=== PATIENT | male | born 1950 | race Caucasian/White ===

== ENCOUNTER 2019-04-20 18:16 | Emergency (ER) | payer OTHER, SELFPAY ==
[2019-04-20 19:07] VITALS: BP 141/62; PULSE 74; RESP 20; TEMP 36.6; O2SAT 94; BMI 34.8
--- NOTE | 2019-04-20 19:26 | W.ED.ABDPA2 ---
HPI - Abdominal Pain General: Chief Complaint: Abdominal Pain Stated Complaint: lower abd pain Time Seen by Provider: 04/20/19 19:24 Source: patient Mode of arrival: wheelchair Limitations: no limitations History of Present Illness: MD elicited complaint: abdominal pain Onset (ago): day(s) (today) Associated Symptoms: Denies diarrhea and vomiting Review of Systems Resp: Denies: shortness of breath GI: Denies: vomiting or diarrhea Neuro: Denies: headache Physical Exam Const: COMMON NORMALS: no apparent distress and healthy appearing HENMT: COMMON NORMALS: normocephalic and external nose normal HEAD & SCALP: normocephalic NOSE: external nose normal and no nasal discharge (nasal dischage) Eye: COMMON NORMALS: PERRL PUPIL: Yes PERRL Neck/C-Spine: COMMON NORMALS: full ROM and no lymphadenopathy Chest: COMMONS NORMALS: inspection of chest normal Resp: COMMON NORMALS: normal respiratory effort and clear to auscultation bilaterally AUSCULTATION: clear to auscultation bilaterally Cardio: COMMON NORMALS: regular rate and regular rhythm RATE: regular rate RHYTHM: regular rhythm GI: COMMON NORMALS: soft to palpation PALPATION: Yes soft Extremity: COMMON NORMALS: normal to inspection, full ROM and normal capillary refill Psych: COMMON NORMALS: mental status grossly normal and cooperative Skin: COMMON NORMALS: no rashes or lesions noted GENERAL SKIN EXAM: no rashes or lesions noted Course Vital Signs: Vital signs: Vital Signs Temperature 97.9 F 04/20/19 19:07 Pulse Rate 74 04/20/19 19:07 Respiratory Rate 20 H 04/20/19 19:07 Blood Pressure 141/62 04/20/19 19:07 Pulse Oximetry 94 04/20/19 19:07 Discharge Plan Discharge Prescriptions: No Action Lantus U-100 Insulin 100 units SUBCUT BEDTIME RF: 0 Coding Level of Care Code ED Natural Resources Technician for Selin Murillo
--- NOTE | 2019-04-20 19:31 | ED_ITS ---
HPI - Abdominal Pain General: Chief Complaint: Abdominal Pain Stated Complaint: lower abd pain Time Seen by Provider: 04/20/19 19:24 History of Present Illness: HPI narrative: Patient is a 68-year-old male comes into the ED with severe right lower quadrant pain that started right after he ate dinner tonight. He says the pain is radiating up into his chest. Because of the past medical history of a CABG with multiple stents placed and type I diabetes. He rates the pain 9 out of 10. Patient's mother did pass away yesterday. He says he has some mild nausea but no vomiting. Denies any fevers, chills, constipation, diarrhea, blood in the stool, dysuria, hematuria, shortness of breath, upper respiratory symptoms. Location: Chest (radiating to chest) and RLQ Review of Systems General: Reports: 10 or more systems reviewed and unremarkable except in HPI and below Physical Exam Const: COMMON NORMALS: oriented x3 HENMT: COMMON NORMALS: normocephalic HEAD & SCALP: normocephalic MOUTH: oral and palatal mucosa normal THROAT: posterior oropharynx normal and uvula midline Neck/C-Spine: COMMON NORMALS: supple GENERAL: Yes normal visual inspection Resp: COMMON NORMALS: normal respiratory effort, no retractions, no use of accessory muscles and clear to auscultation bilaterally AUSCULTATION: clear to auscultation bilaterally Cardio: COMMON NORMALS: regular rate, regular rhythm, S1 normal heart sound, S2 normal heart sound, no gallops, no clicks, no murmurs and peripheral pulses 2+ throughout RATE: regular rate RHYTHM: regular rhythm HEART SOUNDS: S1 normal and S2 normal PERIPHERAL PULSES: pulses 2+ throughout GI: COMMON NORMALS: normal to inspection, nondistended, normoactive bowel sounds, soft to palpation and no masses INSPECTION: Yes central obesity AUSCULTATION: Yes normoactive bowel sounds PALPATION: Yes soft and Yes tender (Severe-light touch) Details: RLQ : COMMON NORMALS: Yes no CVA tenderness BLADDER/KIDNEY EXAM: Yes no CVA tenderness Back/Pelvis: COMMON NORMALS: no CVA tenderness Neuro: COMMON NORMALS: oriented x3 Course Vital Signs: Vital signs: Vital Signs Temperature 97.9 F 04/20/19 19:07 Pulse Rate 76 04/21/19 00:37 Respiratory Rate 18 04/21/19 00:37 Blood Pressure 146/46 04/21/19 00:37 Pulse Oximetry 93 04/21/19 00:37 MDM - Abdominal Pain MDM Narrative: Medical decision making narrative: Patient is a 68-year-old male comes into the ED with right lower quadrant abdominal pain radiates to chest pain. Physical exam was remarkable for localized right lower quadrant abdominal tenderness. CBC CMP and UA were unremarkable. Troponins were drawn an d were negative. EKG shows some old changes from previous heart issues and to our EKG was unchanged. this ruled out any cardiac cause of the chest pain. CT of the abdomen was performed as well and this showed nothing acute. Patient's pain finally improved while in the ED after getting some IV fluids, morphine then Dilaudid, then fentanyl. The patient that we are able to rule out some serious causes of pain but was unsure what the cause was. Told patient I will put him on some high strength ibuprofen and told him follow-up up with primary care doctor in 5-7 days for reevaluation. Patient understood and agreed with plan. Patient ambulated comfortably out of the emergency department. Lab Data: Attestation: I reviewed the patient's lab results. Labs: Lab Results 04/20/19 04/20/19 04/20/19 Range/Units 19:36 19:36 19:36 WBC 6.6 (4.0-10.0) 10^3/ uL RBC 4.70 (4.1-5.3) 10^6/u L Hgb 13.5 (11.7-16.6) g/dL Hct 42.2 (42.0-52.0) % MCV 89.8 (80-94) fL MCH 28.7 (28.0-34.0) pg MCHC 32.0 (30.0-36.0) g/dL RDW 12.7 (12.1-15.1) % Plt Count 168 (130-400) 10^3/c mm MPV 10.4 (7.4-10.4) fL Neut % (Auto) 67.2 % Lymph % (Auto) 19.2 % [place] % (Auto) 9.1 % Eos % (Auto) 3.5 % Baso % (Auto) 0.5 % Neut # (Auto) 4.5 (1.8-7.7) 10^3/u L Lymph # (Auto) 1.3 (0.8-4.8) 10^3/u L [place] # (Auto) 0.6 (0.2-0.9) 10^3/u L Eos # (Auto) 0.2 (0.0-0.8) 10^3/u L Baso # (Auto) 0.0 (0.0-0.1) 10^3/u L Nucleated RBC % (a uto) 0 % Nucleated RBCs # 0.0 /100WBC Sodium 139 (136-145) mmol/L Potassium 3.8 (3.5-5.1) mmol/L Chloride 101 (98-107) mmol/L Carbon Dioxide 27 (22-29) mmol/L Anion Gap 14.8 (5-19) BUN 14 (8-23) mg/dL Creatinine 1.3 H (0.7-1.2) mg/dL GFR Calculation 55.2 L (90-130) mL/min Glucose 156 H (74-106) mg/dL Calcium 9.5 (8.8-10.2) mg/Dl Total Bilirubin 0.3 (0.15-1.2) mg/dL AST 17 (0-40) U/L ALT 12 (0-41) U/L Alkaline Phosphata se 95 (40-130) IU/L Troponin T Baselin e 23 H (0-15) ng/mL Troponin T 120 Min [place] (0-15) ng/mL Delta Troponin T (0-10) ABS# Total Protein 7.3 (6.6-8.7) g/dL Albumin 4.1 (3.5-5.2) g/dL Globulin 3.2 (1.3-4.6) g/dL Lipase 23 (13-60) U/L Urine Color (Yellow) Urine Appearance (CLEAR) Urine pH (5-7) Ur Specific Gravit y (1.005-1.030) Urine Protein (Negative) Urine Glucose (UA) (Normal) Urine Ketones (Negative) Urine Occult Blood (Negative) Urine Nitrate (Negative) Urine Bilirubin (NEGATIVE) Urine Urobilinogen (Negative) mg/dL Ur Leukocyte Yesi ase (Negative) Urine RBC (0-2) /hpf Urine WBC (0-5) /hpf Ur Squamous Epith Cells (0-5) Urine Bacteria (NONE) 04/20/19 04/20/19 Range/Units 21:34 21:57 WBC (4.0-10.0) 10^3/ uL RBC (4.1-5.3) 10^6/u L Hgb (11.7-16.6) g/dL Hct (42.0-52.0) % MCV (80-94) fL MCH (28.0-34.0) pg MCHC (30.0-36.0) g/dL RDW (12.1-15.1) % Plt Count (130-400) 10^3/c mm MPV (7.4-10.4) fL Neut % (Auto) % Lymph % (Auto) % [place] % (Auto) % Eos % (Auto) % Baso % (Auto) % Neut # (Auto) (1.8-7.7) 10^3/u L Lymph # (Auto) (0.8-4.8) 10^3/u L [place] # (Auto) (0.2-0.9) 10^3/u L Eos # (Auto) (0.0-0.8) 10^3/u L Baso # (Auto) (0.0-0.1) 10^3/u L Nucleated RBC % (a uto) % Nucleated RBCs # /100WBC Sodium (136-145) mmol/L Potassium (3.5-5.1) mmol/L Chloride (98-107) mmol/L Carbon Dioxide (22-29) mmol/L Anion Gap (5-19) BUN (8-23) mg/dL Creatinine (0.7-1.2) mg/dL GFR Calculation (90-130) mL/min Glucose (74-106) mg/dL Calcium (8.8-10.2) mg/Dl Total Bilirubin (0.15-1.2) mg/dL AST (0-40) U/L ALT (0-41) U/L Alkaline Phosphata se (40-130) IU/L Troponin T Baselin e (0-15) ng/mL Troponin T 120 Min [place] 21.10 H (0-15) ng/mL Delta Troponin T -1.90 L (0-10) ABS# Total Protein (6.6-8.7) g/dL Albumin (3.5-5.2) g/dL Globulin (1.3-4.6) g/dL Lipase (13-60) U/L Urine Color Yellow (Yellow) Urine Appearance Clear (CLEAR) Urine pH 5 (5-7) Ur Specific Gravit y 1.010 (1.005-1.030) Urine Protein Neg (Negative) Urine Glucose (UA) 1+ (Normal) Urine Ketones Negative (Negative) Urine Occult Blood Neg (Negative) Urine Nitrate Negative (Negative) Urine Bilirubin Neg (NEGATIVE) Urine Urobilinogen 1 H (Negative) mg/dL Ur Leukocyte Yesi ase Negative (Negative) Urine RBC None (0-2) /hpf Urine WBC 0-4 H (0-5) /hpf Ur Squamous Epith Cells None (0-5) Urine Bacteria Trace (NONE) Discharge Plan Discharge Patient Disposition: Home, Self-Care Clinical Impression: Abdominal pain Qualifiers: Abdominal location: right lower quadrant Qualified Code(s): R10.31 - Right lower quadrant pain Condition: Stable Prescriptions: New ibuprofen 600 mg tablet 600 mg PO Q8H Qty: 30 RF: 0 No Action Lantus U-100 Insulin 100 units SUBCUT BEDTIME RF: 0 Discharge Orders: Discharge Order (Routine); Ordered 04/21/19 Ordered By: Junior Carrizales Referrals: Leo Herrera [Family Provider] - Discharge Diet: Advance as tolerated Discharge Activity: Resume usual activity Patient Instructions: Abdominal Pain (ED) Activity Restrictions/Additional Instructions: Follow-up with primary care doctor in 5-7 days for reevaluation. Take ibuprofen as prescribed. Apply warm moist heat or ice for relief. Discharge Date/Time: 04/21/19 00:39 Coding Level of Care Code ED Orthotist Prosthetist for Selin Murillo
--- NOTE | 2019-04-20 19:31 | XR_ITS ---
WS: [id number] PORTABLE CHEST HISTORY: chest pain COMPARISON: 05/22/2016 Prior CABG. Mild interstitial thickening throughout both lungs similar to prior examinations and probably related to history of smoking. No pneumonia. Normal vasculature. No pleural effusion or pneumothorax. Cardiac size: Mildly enlarged cardiac silhouette. Mediastinum/Aorta: Normal mediastinum. No osseous abnormality seen. XR/XR chest 1V portable [id number] IMPRESSION: Mild chronic emphysema. No acute cardiopulmonary disease.
--- NOTE | 2019-04-20 19:31 | ECG_ITS ---
Measurements Intervals [place] Rate: 76 P: 108 MO: 128 QRS: 54 QRSD: 114 T: 223 QT: 383 QTc: 431 SINUS RHYTHM WITH OCCASIONAL VENTRICULAR PREMATURE COMPLEXES MODERATE INTRAVENTRICULAR CONDUCTION DELAY [110+ ms QRS DURATION] ST DEVIATION AND MODERATE T-WAVE ABNORMALITY, CONSIDER LATERAL ISCHEMIA could be nonspecific ST DEVIATION AND MODERATE T-WAVE ABNORMALITY, could be repolarization abnormality mV T WAVE IN II/aVF] Compared to ECG 05/22/2016 18:29:18 Ventricular premature complex(es) now present Intraventricular conduction delay now present Electronically Signed On 04-21-2019 19:20:08 NOTCHED BLADE LOADER by Rl Shah M.D. [id number] f
[2019-04-20 19:42] LABS: Basophils % 0.5 %; Eosinophils # 0.2 10^3/uL (0.0-0.8); Eosinophils % 3.5 %; Hematocrit 42.2 % (42.0-52.0); Hemoglobin 13.5 g/dL (11.7-16.6); Lymphocytes # 1.3 10^3/uL (0.8-4.8); Lymphocytes % 19.2 %; Mean Corpuscular Hemoglobin 28.7 pg (28.0-34.0); Mean Corpuscular Volume 89.8 fL (80-94); Mean Platelet Volume 10.4 fL (7.4-10.4); Monocytes # 0.6 10^3/uL (0.2-0.9); Monocytes % 9.1 %; Neutrophils # 4.5 10^3/uL (1.8-7.7); Neutrophils % 67.2 %; Nucleated Red Blood Cells % 0 %; Platelet Count 168 10^3/cmm (130-400); Red Cell Distribution Width 12.7 % (12.1-15.1); White Blood Count 6.6 10^3/uL (4.0-10.0)
--- NOTE | 2019-04-20 19:42 | CTR_ITS ---
PROCEDURE INFORMATION: Exam: CT Abdomen And Pelvis With Contrast Exam date and time: 04/20/2019 8:04 PM Age: 68 years old Clinical indication: Abdominal pain; Localized; Right lower quadrant (rlq); Prior surgery; Surgery type: Gb, appy, bypass; Additional info: Abdominal pain (rlq) TECHNIQUE: Imaging protocol: Computed tomography of the abdomen and pelvis with intravenous contrast. Total DLP: 1970.89 mGy-cm Radiation optimization: All CT scans at this facility use at least one of these dose optimization techniques: automated exposure control; mA and/or kV adjustment per patient size (includes targeted exams where dose is matched to clinical indication); or iterative reconstruction. Contrast material: VISI 320; Contrast volume: 95 ml; Contrast route: IV; COMPARISON: CT abdomen pelvis wo con [id number] 05/07/2013 6:55 PM FINDINGS: Lungs: There is subpleural atelectasis of the dependent portions of the lungs. Liver: Unremarkable.No mass. Gallbladder and bile ducts: There has been a cholecystectomy. There is no common bile duct dilation. Pancreas: Normal. No ductal dilation. Spleen: Normal. No splenomegaly. Adrenals: Normal. No mass. Kidneys and ureters: There is no evidence of hydronephrosis. There is a 3.3 cm fluid density cyst upper pole left kidney. Stomach and bowel: Mild diverticulosis is present in the distal colon. There is abundant colonic stool. No ileus or obstruction. No bowel thickening. No inflammatory changes. Appendix: A normal appendix is identified. Intraperitoneal space: Unremarkable. No free air. No significant fluid collection. Vasculature: The aorta demonstrates mild atherosclerotic calcification. Lymph nodes: Unremarkable.No enlarged lymph nodes. Bladder: Unremarkable as visualized. Reproductive: Unremarkable as visualized. Bones/joints: The osteopenia and moderate degenerative changes in the spine are noted. No acute fracture. Old left 10th rib fracture is noted. Soft tissues: There are small fat filled inguinal hernias. CT/CT abdomen pelvis w con* [id number] IMPRESSION: 1. No acute abnormality or inflammatory changes. Incidental findings are noted as above. 2. Unremarkable appendix. No inflammatory changes or fluid collection in the right lower quadrant. Radiation Dose CTDIVOL = (mGy): DLP = 1970.89 (mGy-cm)
[2019-04-20 19:56] LABS: Alanine Aminotransferase 12 U/L (0-41); Albumin Level 4.1 g/dL (3.5-5.2); Alkaline Phosphatase 95 IU/L (40-130); Anion Gap 14.8 (5-19); Aspartate Amino Transferase 17 U/L (0-40); Blood Urea Nitrogen 14 mg/dL (8-23); Calcium 9.5 mg/Dl (8.8-10.2); Carbon Dioxide 27 mmol/L (22-29); Chloride 101 mmol/L (98-107); Globulin 3.2 g/dL (1.3-4.6); Glomerular Filtration Rate 55.2 mL/min (90-130); Glucose 156 mg/dL (74-106); Lipase 23 U/L (13-60); Potassium 3.8 mmol/L (3.5-5.1); Sodium 139 mmol/L (136-145); Total Bilirubin 0.3 mg/dL (0.15-1.2); Total Protein 7.3 g/dL (6.6-8.7)
[2019-04-20 19:58] LABS: Troponin(5th) Baseline 23 ng/mL (0-15)
[2019-04-20] MEDS: iodixanol 320 mg/mL 100mL Btl 95 ML IV (20:12)
--- NOTE | 2019-04-20 20:15 | PC.NURSE ---
pt to CT per stretcher at this time. NAD noted
[2019-04-20 20:45] VITALS: RESP 16; O2SAT 91
[2019-04-20] MEDS: morphine 4 mg/mL SDV 1 mL IM (20:45)
[2019-04-20] MEDS: ondansetron 2 mg/ML SDV 2 mL 4 MG IVP (20:46)
[2019-04-20] MEDS: sodium chloride 0.9% 500 ML IV (20:46)
--- NOTE | 2019-04-20 21:31 | ECG_ITS ---
Measurements Intervals [place] Rate: 76 P: 112 CT: 139 QRS: 54 QRSD: 108 T: 208 QT: 376 QTc: [address] DEVIATION AND MODERATE T-WAVE ABNORMALITY, CONSIDER LATERAL ISCHEMIA [-0.1+ mV T WAVE IN I/aVL/V5/V6] ST DEVIATION AND MODERATE T-WAVE ABNORMALITY, CONSIDER INFERIOR ISCHEMIA [-0.1+ mV T WAVE IN II/aVF] Compared to ECG 05/22/2016 18:29:18 Possible ischemia now present Myocardial infarct finding no longer present T-wave abnormality still present Electronically Signed On 04-21-2019 19:22:39 TOUR ACTOR by Rl Shah M.D. [id number]
[2019-04-20 21:35] VITALS: RESP 16; O2SAT 90
[2019-04-20] MEDS: HYDROmorphone 1 mg/mL INJ 1 mL IVP (21:35)
[2019-04-20 21:41] VITALS: BP 198/61; PULSE 82; RESP 26; O2SAT 92
[2019-04-20 22:36] LABS: Bilirubin Urine Neg (NEGATIVE); Blood Urine Neg (Negative); Glucose Urine UA 1+ (Normal); Ketones Urine Negative (Negative); Leukocyte Esterase Urine Negative (Negative); Nitrate Urine Negative (Negative); Protein Urine Neg (Negative); Urine Appearance Clear (CLEAR); Urine Color Yellow (Yellow); Urobilinogen Urine 1 mg/dL (Negative); pH Urine 5 (5-7)
[2019-04-20] MEDS: aspirin 325 mg Tablet PO (22:45)
[2019-04-20 22:54] LABS: Add Urine Culture? No; Bacteria Urine TRACE; WBC Urine 0-4 /hpf (0-5)
[2019-04-20] MEDS: fentaNYL 50 mcg/mL INJ 2mL 25 MCG IVP (23:10)
[2019-04-21 00:37] VITALS: BP 146/46; PULSE 76; RESP 18; O2SAT 93
== END 2019-04-21 00:39 | disposition home or self-care (01) ==
PROVIDERS: Emergency Medicine; Emergency Provider Physician Assistant; Family Provider Internal Medicine
DX: R10.31 Right lower quadrant pain (principal)
CPT/HCPCS: 36415; 71045; 74177; 80053; 81001; 83690; 84484; 85025; 93005; 96360; 96372; 96374; 99283; J1170; J2270; J2405; J3010; J7040; Q9967

== ENCOUNTER → 2019-09-04 13:44 | Outpatient (BNVA) | payer OTHER, SELFPAY | PROVIDERS: Family Provider Internal Medicine; Visit Provider Urology | DX: N40.1 Benign prostatic hyperplasia with lower urinary tract symptoms (principal); N48.1 Balanitis; N30.00 Acute cystitis without hematuria; N47.1 Phimosis; R82.71 Bacteriuria | CPT/HCPCS: 80053; 81001; 87077; 87086; 87186 ==

== ENCOUNTER → 2019-09-08 09:58 | Outpatient (BNVA) | payer OTHER, SELFPAY | PROVIDERS: Family Provider Internal Medicine; Visit Provider Urology | DX: N40.1 Benign prostatic hyperplasia with lower urinary tract symptoms (principal); N48.1 Balanitis; N30.00 Acute cystitis without hematuria; N47.1 Phimosis | CPT/HCPCS: 88304 ==

== ENCOUNTER → 2019-10-23 10:06 | Outpatient (BNVA) | payer OTHER, SELFPAY | PROVIDERS: Family Provider Internal Medicine; Visit Provider Urology | DX: N30.00 Acute cystitis without hematuria (principal); N40.1 Benign prostatic hyperplasia with lower urinary tract symptoms; N47.1 Phimosis; F17.210 Nicotine dependence, cigarettes, uncomplicated | CPT/HCPCS: 81001 ==

== ENCOUNTER → 2019-12-18 08:41 | Outpatient (BNVA) | payer OTHER, SELFPAY | PROVIDERS: Family Provider Internal Medicine; PCP Family Medicine; Visit Provider Internal Medicine | DX: Z11.59 Encounter for screening for other viral diseases (principal) | CPT/HCPCS: 87635 ==

== ENCOUNTER → 2019-12-28 08:49 | Outpatient (BNVA) | payer OTHER, SELFPAY | PROVIDERS: Family Provider Internal Medicine; PCP Family Medicine; Visit Provider Internal Medicine | DX: Z11.59 Encounter for screening for other viral diseases (principal); J44.9 Chronic obstructive pulmonary disease, unspecified | CPT/HCPCS: 87635 ==

== ENCOUNTER 2019-12-30 12:55 | Outpatient (CLI) | payer OTHER, SELFPAY ==
--- NOTE | 2019-12-30 13:25 | PFTS_ITS ---
Date of Study:12/30/19 Date of Dictation: MECHANICS: Forced vital capacity (FVC) is reduced. Forced expiratory volume in one second (FEV1) is reduced. FEV1/FVC is normal. FLOW VOLUME LOOP: Narrow. LUNG VOLUMES: Total lung capacity (TLC) is mildly reduced. Residual volume (RV) is normal. DIFFUSING CAPACITY FOR CARBON MONOXIDE: Moderately reduced. INTERPRETATION: The pulmonary function test is consistent with combined obstructive and restrictive ventilatory defect. The spirometry is consistent with moderately severe restriction. The relatively preserved total lung capacity and residual volume are likely secondary to concomitant obstructive defect. There is significant postbronchodilator response. Gas exchange (DLCO) is moderately reduced. MTDD
[2019-12-30 15:10] VITALS: O2SAT 93; O2SAT 98
== END 2019-12-30 12:56 | disposition home or self-care (01) ==
LOC: RT 13:01
PROVIDERS: PCP Family Medicine; Visit Provider Internal Medicine Pulmonary Disease
DX: J44.9 Chronic obstructive pulmonary disease, unspecified (principal)
CPT/HCPCS: 94060; 94726; 94729; J7611

== ENCOUNTER 2020-04-25 12:34 | Outpatient (CLI) | payer OTHER, MEDICARE, SELFPAY ==
--- NOTE | 2020-04-25 12:42 | XRR_ITS ---
PROCEDURE INFORMATION: Exam: XR Chest, 2 Views Exam date and time: 04/25/2020 12:54 PM Age: 69 years old Clinical indication: Dyspnea and shortness of breath; Prior surgery; Surgery type: Heart; Additional info: Exertional shortness of breath TECHNIQUE: Imaging protocol: XR of the chest Views: 2 views. COMPARISON: CT chest w con* [id number] 08/12/2019 12:07 PM FINDINGS: Lungs: Unremarkable. No consolidation. Pleural space: Unremarkable. No pleural effusion. No pneumothorax. Heart/Mediastinum: The heart is not enlarged. The patient has undergone coronary bypass surgery. Bones/joints: Degenerative changes are present in the spine with scattered small osteophytes.. XR/XR chest 2V* [id number] IMPRESSION: No acute abnormalities are seen in the chest.
== END 2020-04-25 12:35 | disposition home or self-care (01) ==
PROVIDERS: PCP Family Medicine; Visit Provider Internal Medicine Pulmonary Disease
DX: R06.02 Shortness of breath (principal)
CPT/HCPCS: 71046

== ENCOUNTER 2020-12-06 15:59 | Emergency (ER) | payer OTHER, MEDICARE, SELFPAY ==
[2020-12-06 16:32] VITALS: BP 139/78; PULSE 79; RESP 23; TEMP 36.7; O2SAT 93
--- NOTE | 2020-12-06 17:08 | ED_ITS ---
HPI - Abdominal Pain General: Chief Complaint: Abdominal Pain Stated Complaint: RECENTLY DX W/RECURRING CANCER:RECENT DX BLOCKAGE Time Seen by Provider: 12/06/20 17:08 History of Present Illness: HPI narrative: Mr. Rodrigues is a 70-year-old gentleman with history of CAD, DM, and COPD and reported recent diagnosis of gastric cancer and possible colitis in the hospital in [place] who presents to the emergency department due to worsening abdominal pain. Reports abdominal pain for a number of weeks and his last bowel movement was approximately 22 days ago. He presented to this hospital with [place] where he was found to have a gastric mass. He has not had follow-up yet with oncology. He was started on antibiotics which he is still taking though he is unsure which ones. He now has significantly worsened abdominal pain. Intensity is severe. Symptoms are worse with palpation and movement but do not go with rest. He is still passing gas but has not had bowel movement as previously noted. He denies similar episodes in the past. He does have a history of abdominal surgeries including cholecystectomy and appendectomy. Review of Systems General: Reports: 10 or more systems reviewed and unremarkable except in HPI and below Narrative: CONSTITUTIONAL: denies fever, positive for generalized fatigue EYES - denies pain, denies loss of vision NOSE - denies congestion or rhinorrhea. THROAT - denies sore throat or difficulty swallowing. CARDIOVASCULAR - denies chest pain and palpitations RESPIRATORY - denies shortness of breath and cough GASTROINTESTINAL - see hpi GENITOURINARY - denies dysuria or urinary frequency MUSCULOSKELETAL- denies deformity or pain SKIN - denies rashes or new changed skin lesions NEUROLOGIC - denies focal weakness or sensory changes HEMATOLOGIC/LYMPHATIC - denies easy bruising or lymphadenopathy. [facility] ED PFSH: Medical History CAD (coronary artery disease) Chronic headache Complex partial epilepsy with generalization COPD (chronic obstructive pulmonary disease) Diabetes Hypertension Myocardial infarct Surgical History H/O circumcision History of appendectomy History of coronary artery bypass graft History of laparotomy Family History Other CAD (coronary artery disease) Hypertension Mesothelioma Social History Smoking and tobacco status: current every day smoker cigarettes Packs smoked per day: 0.5 Years cigarettes smoked: 50 [ Other cigarette details: was 2ppd ] Quit status (tobacco): considering quitting Second hand smoke exposure: Yes Smoking risk assessment/counseling performed?: Yes Alcohol intake: never Lives independently: Yes Household members: spouse Marital status: service: Yes Current occupational status: retired and disabled Pets and animals: No History of recent travel: No Current gender identity: Male Physical Exam Narrative: EXAM NARRATIVE: GENERAL/CONSTITUTIONAL - well-appearing. Discomfort due to pain. Eyes - PERRL, no conjunctival injection ENMT - Atraumatic external nose and ears. Moist mucous membranes NECK - supple. trachea midline CARDIOVASCULAR - regular rate and rhythm. Peripheral pulses 2+ and equal RESPIRATORY -clear to auscultation bilaterally. No retractions or accessory muscle use. ABDOMEN/GI -tenderness to even light palpation without hoang distention. There is mild tenderness percussion. MSK - Extremities without obvious deformity or tenderness to palpation SKIN - Warm, Dry NEURO - alert and appropriately oriented. strength and sensation intact. Moves all extremities equally. PSYCH - Appropriate mood and affect Course ED course: - Patient was seen and evaluated by me at bedside - Patient placed on cardiac monitors, IV access obtained - Initial evaluation notable for uncomfortable appearance, abdominal exam concerning. - Labs and imaging obtained and reviewed - Fluids, analgesia given - Labs notable for no significant abnormality to explain patient's symptoms - Imaging notable for pyelitis of unclear etiology. - Upon serial reexamination after treatment the patient was improved -There is a discrepancy between patient's laboratory findings and imaging findings and clinical exam. Additionally it is already consistent with patient's reported history. -Given severity of patient's abdominal pain even though it has improved observation is warranted. -Hospitalist service contacted and came down to assess the patient. Similarly, she recommended admission for observation however as there are no available MedSurg beds the patient will need to remain in the ED room. The patient was dissatisfied with this plan and expressed a desire to be discharged. Given laboratory and imaging findings plan was to discharge the patient however prior to receiving complete discharge instructions and prescriptions the patient left AGAINST MEDICAL ADVICE as he had not received aforementioned instructions. Vital Signs: Vital signs: Vital Signs Temperature 98.0 F 12/06/20 16:32 Pulse Rate 87 12/06/20 20:48 Respiratory Rate 20 H 12/06/20 20:48 Blood Pressure 134/62 12/06/20 20:48 Pulse Oximetry 94 12/06/20 20:48 MDM - Abdominal Pain Medical Records: Attestation: I reviewed the patient's medical records. Lab Data: Attestation: I reviewed the patient's lab results. Labs: Lab Results 12/06/20 12/06/20 12/06/20 Range/Units 17:30 17:30 17:30 WBC 10.1 H (4.0-10.0) 10^3/ uL RBC 4.49 (4.1-5.3) 10^6/u L Hgb 13.1 (11.7-16.6) g/dL Hct 41.9 L (42.0-52.0) % MCV 93.3 (80-94) fl MCH 29.2 (28.0-34.0) pg MCHC 31.3 (30.0-36.0) g/dL RDW 12.9 (12.1-15.1) % Plt Count 238 (130-400) 10^3/c mm MPV 10.9 H (7.4-10.4) fL Neut % (Auto) 75.4 % Lymph % (Auto) 10.6 % Greene % (Auto) 10.0 % Eos % (Auto) 3.1 % Baso % (Auto) 0.6 % Neut # (Auto) 7.61 (1.8-7.7) 10^3/u L Lymph # (Auto) 1.1 (0.8-4.8) 10^3/u L Greene # (Auto) 1.0 H (0.2-0.9) 10^3/u L Eos # (Auto) 0.3 (0.0-0.8) 10^3/u L Baso # (Auto) 0.1 (0.0-0.1) 10^3/u L Nucleated RBC % (a uto) 0 % Nucleated RBCs # 0.0 /100WBC Sodium 141 (136-145) mmol/L Potassium 4.1 (3.5-5.1) mmol/L Chloride 106 (98-107) mmol/L Carbon Dioxide 25 (22-29) mmol/L Anion Gap 14.1 (5-19) BUN 19 (8-23) mg/dL Creatinine 1.6 H (0.7-1.2) mg/dL GFR Calculation 43.2 L (90-130) mL/min Glucose 61 L (65-115) mg/dL POC Glucose (70-110) mg/dL Calculated Osmolal ity 292 (285-295) mOsm/k g Lactate 0.7 (0.5-2.2) mmol/L Calcium 8.8 (8.5-10.5) mg/dL Total Bilirubin 0.3 (0.15-1.2) mg/dL AST 30 (0-40) U/L ALT 21 (0-41) U/L Alkaline Phosphata se 100 (40-130) IU/L Total Protein 7.6 (6.6-8.7) g/dL Albumin 3.6 (3.5-5.2) g/dL Globulin 4.0 (1.3-4.6) g/dL Lipase 20 (13-60) U/L Urine Color (Yellow) Urine Appearance (CLEAR) Urine pH (5-7) Ur Specific Gravit y (1.005-1.030) Urine Protein (Negative) Urine Glucose (UA) (Normal) Urine Ketones (Negative) Urine Blood (Negative) Urine Nitrate (Negative) Urine Bilirubin (Negative) Urine Urobilinogen (Negative) mg/dL Ur Leukocyte Yesi ase (Negative) 12/06/20 12/06/20 12/06/20 Range/Units 17:41 17:57 19:38 WBC (4.0-10.0) 10^3/ uL RBC (4.1-5.3) 10^6/u L Hgb (11.7-16.6) g/dL Hct (42.0-52.0) % MCV (80-94) fl MCH (28.0-34.0) pg MCHC (30.0-36.0) g/dL RDW (12.1-15.1) % Plt Count (130-400) 10^3/c mm MPV (7.4-10.4) fL Neut % (Auto) % Lymph % (Auto) % Greene % (Auto) % Eos % (Auto) % Baso % (Auto) % Neut # (Auto) (1.8-7.7) 10^3/u L Lymph # (Auto) (0.8-4.8) 10^3/u L Greene # (Auto) (0.2-0.9) 10^3/u L Eos # (Auto) (0.0-0.8) 10^3/u L Baso # (Auto) (0.0-0.1) 10^3/u L Nucleated RBC % (a uto) % Nucleated RBCs # /100WBC Sodium (136-145) mmol/L Potassium (3.5-5.1) mmol/L Chloride (98-107) mmol/L Carbon Dioxide (22-29) mmol/L Anion Gap (5-19) BUN (8-23) mg/dL Creatinine (0.7-1.2) mg/dL GFR Calculation (90-130) mL/min Glucose (65-115) mg/dL POC Glucose 61 L 72 (70-110) mg/dL Calculated Osmolal ity (285-295) mOsm/k g Lactate (0.5-2.2) mmol/L Calcium (8.5-10.5) mg/dL Total Bilirubin (0.15-1.2) mg/dL AST (0-40) U/L ALT (0-41) U/L Alkaline Phosphata se (40-130) IU/L Total Protein (6.6-8.7) g/dL Albumin (3.5-5.2) g/dL Globulin (1.3-4.6) g/dL Lipase (13-60) U/L Urine Color Straw (Yellow) Urine Appearance Clear (CLEAR) Urine pH 5 (5-7) Ur Specific Gravit y 1.005 (1.005-1.030) Urine Protein Neg (Negative) Urine Glucose (UA) Norm (Normal) Urine Ketones Negative (Negative) Urine Blood Neg (Negative) Urine Nitrate Negative (Negative) Urine Bilirubin Neg (Negative) Urine Urobilinogen Norm (Negative) mg/dL Ur Leukocyte Yesi ase Negative (Negative) Discharge Plan Discharge Patient Disposition: Left Against Medical Advice Clinical Impression: Abdominal pain, Pyelitis Condition: Stable Prescriptions: New ciprofloxacin HCl 500 mg tablet 500 mg PO BID Qty: 14 RF: 0 No Action bupivacaine (PF) 0.5 % (5 mg/mL) solution 5 mg INTRAVESIC ONCE Qty: 1 RF: 0 lidocaine (PF) 10 mg/mL (1 %) solution 10 mg SUBCUT ONCE Qty: 1 RF: 0 aspirin 325 mg tablet 325 mg PO DAILY RF: 0 Hold Instructions: on hold for procedure clopidogrel 75 mg tablet 75 mg PO DAILY RF: 0 Hold Instructions: on hold for procedure ibuprofen 600 mg tablet 600 mg PO Q8H PRN (Reason: Pain) RF: 0 Hold Instructions: on hold for procedure metoprolol tartrate 50 mg tablet 50 mg PO DAILY RF: 0 Hold Instructions: on hold for procedure Novolin N NPH U-100 Insulin 100 unit/mL suspension 35 unit SUBCUT TID RF: 0 atorvastatin [Lipitor] 80 mg tablet 80 mg PO DAILY RF: 0 melatonin 3 mg capsule 3 mg PO DAILY RF: 0 topiramate [Topamax] 50 mg tablet 50 mg PO BID Qty: 60 RF: 6 divalproex [Depakote ER] 500 mg tablet extended release 24 hr 1,000 mg PO DAILY Qty: 60 RF: 6 Stiolto Respimat 2.5-2.5 mcg/actuation mist 2 puff inhalation DAILY Qty: 4 RF: 3 Asmanex HFA 200 mcg/actuation HFA aerosol inhaler 1 puff inhalation DAILY Qty: 13 RF: 3 Lantus U-100 Insulin 100 unit/mL solution 100 unit SUBCUT BEDTIME RF: 0 sulfamethoxazole-trimethoprim 800-160 mg tablet 1 tab PO BID RF: 0 gabapentin 300 mg capsule 300 mg PO TID RF: 0 tamsulosin 0.4 mg capsule 0.4 mg PO DAILY RF: 0 Discharge Orders: Discharge ED (Routine); Ordered 12/06/20 Ordered By: Iker Lam Referrals: Portia Lawrence MD [Primary Care Provider] - Discharge Diet: Usual diet Discharge Activity: Resume usual activity Patient Instructions: Abdominal Pain (ED) Coding Level of Care Code ED Program Manager for Selin Murillo
--- NOTE | 2020-12-06 17:20 | CTR_ITS ---
PROCEDURE INFORMATION: Exam: CT Abdomen And Pelvis With Contrast Exam date and time: 12/06/2020 5:20 PM Age: 70 years old Clinical indication: Abdominal pain; Generalized; Prior surgery; Surgery type: Open heart, appy; Additional info: Abd pain, distension, ? HX cancer TECHNIQUE: Imaging protocol: Computed tomography of the abdomen and pelvis with contrast. Total images: 258 Radiation optimization: All CT scans at this facility use at least one of these dose optimization techniques: automated exposure control; mA and/or kV adjustment per patient size (includes targeted exams where dose is matched to clinical indication); or iterative reconstruction. Contrast material: VISI 320; Contrast volume: 95 ml; Contrast route: INTRAVENOUS (IV); COMPARISON: CT abdomen pelvis w con* [id number] 04/20/2019 8:21 PM RADIATION DOSE METRICS: Total DLP (mGy-cm): 1875.21 FINDINGS: Lungs: Limited assessment of the lung bases fails to reveal evidence for active cardiopulmonary process. Liver: No visible hepatic mass or cystic structure. Gallbladder and bile ducts: Status post cholecystectomy. Pancreas: Pancreas is unremarkable. No visible pancreatic ductal ectasia. Spleen: Spleen unremarkable. Adrenal glands: Adrenal glands unremarkable. Kidneys and ureters: Findings raising suspicion for low-grade bilateral pyelonephritis and pyelitis. No visible lobar nephronia/abscess. No visible hydronephrosis or perinephric fluid. No visible nephrolithiasis or ureterolithiasis. Stable simple cortical cyst superior pole right kidney. No follow-up recommended. Stomach and bowel: Assessment of the hollow viscus fails to reveal evidence of active or acute pathology. Nonobstructed bowel pattern. No visible acute diverticulitis. No visible adynamic or reactive ileus. Appendix: The appendix is visualized and appears noninflamed. Intraperitoneal space: No visible pneumoperitoneum or intraperitoneal ascites. Vasculature: Portal vein patent. The abdominal aorta is nonaneurysmal. Moderate arterial sclerotic disease. Lymph nodes: Unremarkable. No enlarged lymph nodes. Urinary bladder: Seg[place] catheter within a decompressed urinary bladder. Diffuse bladder wall thickening. Reproductive: Unremarkable as visualized for age. Bones/joints: No visible active or acute osseous pathology. Old posterior left 10th rib fracture. Soft tissues: Heavy body habitus. Small left inguinal hernia containing fat only. Left lower quadrant soft tissue emphysematous pockets most likely from a small subcutaneous injection site. CT/CT abdomen pelvis w con* [id number] IMPRESSION: 1. Findings raising suspicion for low-grade bilateral pyelonephritis and pyelitis. 2. Segovia catheter within a decompressed urinary bladder. Diffuse bladder wall thickening. Radiation Dose CTDIVOL = (mGy): DLP = 1875.21 (mGy-cm)
--- NOTE | 2020-12-06 17:27 | XRR_ITS ---
PROCEDURE INFORMATION: Exam: XR Chest Exam date and time: 12/06/2020 5:27 PM Age: 70 years old Clinical indication: Tachypnea; Prior surgery TECHNIQUE: Imaging protocol: XR of the chest. Views: 1 view. Total images: 1 COMPARISON: CR XR chest 2V* [id number] 04/25/2020 12:46 PM FINDINGS: Lungs: No visible active interstitial or alveolar airspace disease. Pleural spaces: Unremarkable. No pleural effusion. No pneumothorax. Heart/Mediastinum: Cardiomegaly. Status post sternotomy chest. Bones/joints: Unremarkable. XR/XR chest 1V portable [id number] IMPRESSION: Nonacute.
[2020-12-06 17:35] VITALS: BP 154/67; PULSE 80; RESP 15; O2SAT 96
[2020-12-06 17:44] LABS: Glucose Point of Care 61 mg/dL (70-110)
[2020-12-06 17:47] LABS: Basophils # 0.1 10^3/uL (0.0-0.1); Basophils % 0.6 %; Eosinophils # 0.3 10^3/uL (0.0-0.8); Eosinophils % 3.1 %; Hematocrit 41.9 % (42.0-52.0); Hemoglobin 13.1 g/dL (11.7-16.6); Lymphocytes # 1.1 10^3/uL (0.8-4.8); Lymphocytes % 10.6 %; Mean Corpuscular HGB Conc 31.3 g/dL (30.0-36.0); Mean Corpuscular Hemoglobin 29.2 pg (28.0-34.0); Mean Corpuscular Volume 93.3 fl (80-94); Mean Platelet Volume 10.9 fL (7.4-10.4); Neutrophils # 7.61 10^3/uL (1.8-7.7); Neutrophils % 75.4 %; Nucleated Red Blood Cells % 0 %; Platelet Count 238 10^3/cmm (130-400); Red Blood Count 4.49 10^6/uL (4.1-5.3); Red Cell Distribution Width 12.9 % (12.1-15.1); White Blood Count 10.1 10^3/uL (4.0-10.0)
[2020-12-06 18:03] VITALS: RESP 16; O2SAT 97
[2020-12-06] MEDS: HYDROmorphone 1 mg/mL INJ 1 mL 0.5 MG IVP ×3 (18:03→20:43)
[2020-12-06] MEDS: ondansetron 2 mg/ML SDV 2 mL 4 MG IVP (18:03)
[2020-12-06] MEDS: sodium chloride 0.9% 1,000 ML 999 ML IV (18:04)
[2020-12-06 18:07] LABS: Add Urine Microscopic? NO; Charge for UA Resulting for Rev
[2020-12-06 18:11] LABS: Lactate (Lactic Acid level) 0.7 mmol/L (0.5-2.2)
[2020-12-06] MEDS: dextrose 50% syringe 50 mL 25 ML IVP (18:11)
[2020-12-06 18:12] LABS: Urine Appearance Clear (CLEAR); Urine Color Straw (Yellow)
[2020-12-06 18:12] LABS: Alanine Aminotransferase 21 U/L (0-41); Albumin Level 3.6 g/dL (3.5-5.2); Alkaline Phosphatase 100 IU/L (40-130); Anion Gap 14.1 (5-19); Aspartate Amino Transferase 30 U/L (0-40); Blood Urea Nitrogen 19 mg/dL (8-23); Calcium 8.8 mg/dL (8.5-10.5); Carbon Dioxide 25 mmol/L (22-29); Chloride 106 mmol/L (98-107); Glomerular Filtration Rate 43.2 mL/min (90-130); Glucose 61 mg/dL (65-115); Lipase 20 U/L (13-60); Osmolality Calculated 292 mOsm/kg (285-295); Potassium 4.1 mmol/L (3.5-5.1); Sodium 141 mmol/L (136-145); Total Bilirubin 0.3 mg/dL (0.15-1.2); Total Protein 7.6 g/dL (6.6-8.7)
[2020-12-06 18:13] LABS: Bilirubin Urine Neg (Negative); Blood Urine Neg (Negative); Glucose Urine UA Norm (Normal); Ketones Urine Negative (Negative); Leukocyte Esterase Urine Negative (Negative); Nitrate Urine Negative (Negative); Protein Urine Neg (Negative); Specific Gravity, Urine 1.005 (1.005-1.030); Urobilinogen Urine Norm (Negative); pH Urine 5 (5-7)
--- NOTE | 2020-12-06 18:15 | PC.NURSE ---
pt desat to 85% with a good pleth; pt report he has sleep apnea and wears a cpap at night; applied 2lnc and sat improved to 92%; notified Dr. Lam.
[2020-12-06] MEDS: iodixanol 320 mg/mL 100mL Btl IV (19:36)
[2020-12-06 19:40] LABS: Glucose Point of Care 72 mg/dL (70-110)
[2020-12-06 19:54] VITALS: BP 154/71; PULSE 77; RESP 19; O2SAT 92
[2020-12-06] MEDS: piperacillin-tazobactam 4.5 GM in sodium chloride 0.9% (plus) 50 ML IV (20:44)
[2020-12-06 20:48] VITALS: BP 134/62; PULSE 87; RESP 20; O2SAT 94
--- NOTE | 2020-12-07 00:32 | PM.MISC ---
Miscellaneous Note Note: I was asked to evaluate Mr. Andersen for admission by Dr. Lam. Patient presented to the ER with history of increasing generalized weakness over the past week along with somnolence as noted by his . They stated that patient had recently traveled to [place] on a vacation, while over there he developed abdominal pain for which he visited a local hospital. does not recall name of the facility. There he was diagnosed with a stomach mass and possible diverticulitis. 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 No records are available at this time for review. On presentation to the ER he had abdominal tenderness on exam, CT scan of the abdomen was performed. Showed signs of possible bilateral pyelitis, UA negative. No significant leukocytosis. However patient noted to be somnolent, speaking in few short sentences, this may possibly be secondary to receiving opiates for pain management. stated he has not had a bowel movement in several days and also currently not passing flatus. CT abdomen did not show any signs of acute obstruction. Noted to be also on oxygen at 3 L/min which per is a new requirement. Patient was recommended admission for observation and further work-up, however there are no current beds available and patient would be an ER hold. stated she does not wish to remain in the ER and if there are no beds at this time she would prefer to return home and bring the patient back if needed. She also declined transfer to other facilities. I recommended oral ciprofloxacin and close follow-up with urology and general surgery as outpatient if unwilling to stay tonight.
== END 2020-12-06 23:59 | disposition left against medical advice (07) ==
PROVIDERS: Emergency Provider Emergency Medicine; PCP Family Medicine
DX: N12 Tubulo-interstitial nephritis, not specified as acute or chronic (principal); C16.9 Malignant neoplasm of stomach, unspecified; E11.9 Type 2 diabetes mellitus without complications; I10 Essential (primary) hypertension; J44.9 Chronic obstructive pulmonary disease, unspecified; I25.10 Atherosclerotic heart disease of native coronary artery without angina pectoris; F17.210 Nicotine dependence, cigarettes, uncomplicated; Z79.4 Long term (current) use of insulin; Z79.82 Long term (current) use of aspirin; Z95.1 Presence of aortocoronary bypass graft; Z53.29 Procedure and treatment not carried out because of patient's decision for other reasons
CPT/HCPCS: 36416; 71045; 74177; 80053; 81003; 82962; 83605; 83690; 85025; 87040; 96365; 96375; 96376; 99284; J1170; J2405; J2543; J7030; Q9967

== ENCOUNTER → 2021-02-21 09:50 | Outpatient (BNVA) | payer OTHER, MEDICARE, SELFPAY | PROVIDERS: PCP Family Medicine; Visit Provider Urology | DX: R33.9 Retention of urine, unspecified (principal); N39.0 Urinary tract infection, site not specified | CPT/HCPCS: 81003; 87077; 87086; 87184 ==

== ENCOUNTER → 2022-04-05 10:42 | Outpatient (BNVA) | payer OTHER, SELFPAY | PROVIDERS: PCP Family Medicine; Visit Provider Internal Medicine Cardiovascular Disease | DX: R06.02 Shortness of breath (principal); I25.10 Atherosclerotic heart disease of native coronary artery without angina pectoris; I25.2 Old myocardial infarction; Z95.1 Presence of aortocoronary bypass graft; I10 Essential (primary) hypertension; G47.33 Obstructive sleep apnea (adult) (pediatric); Z99.89 Dependence on other enabling machines and devices; I65.23 Occlusion and stenosis of bilateral carotid arteries; J44.9 Chronic obstructive pulmonary disease, unspecified; E11.9 Type 2 diabetes mellitus without complications; Z79.4 Long term (current) use of insulin; R56.9 Unspecified convulsions; F17.210 Nicotine dependence, cigarettes, uncomplicated | CPT/HCPCS: 93005; 99205 ==

== ENCOUNTER 2022-05-07 11:44 | Outpatient (CLI) | payer OTHER, SELFPAY ==
--- NOTE | 2022-05-07 11:15 | USCV_ITS ---
Junior Andersen Age: 71 Gender: M : 1950 Exam Date: 05/07/2022 12:20 Ordering Phys: Izabel Hays MD ([email or web address]) Technologist: Nathan Barnes Exam Location: [facility] [place] Indication: Shortness of breath on exertion BP: 162 / 79 HR: 64 Rhythm: Sinus Technical Quality: Technically difficult study MEASUREMENTS (Male / Female) Normal Values 2D ECHO LV Diastolic Diameter PLAX 6.2 cm 4.2 - 5.9 / 3.9 - 5.3 cm LV Systolic Diameter PLAX 4.8 cm IVS Diastolic Thickness 0.8 cm 0.6 - 1.0 / 0.6 - 0.9 cm IVS Systolic Thickness 1.1 cm LVPW Diastolic Thickness 0.9 cm 0.6 - 1.0 / 0.6 - 0.9 cm LVPW Systolic Thickness 1.4 cm LV Ejection Fraction 2D Teich 43.6 % LV Ejection Fraction MOD 2C 35.7 % LV Ejection Fraction 2C AL 36.2 % LA Diameter 3.8 cm LA Width 3.4 cm LA Height 4.3 cm RA Width 3.5 cm RA Height 3.8 cm Aorta at Sinotubular Diameter 2.8 cm IVC Diameter 1.8 cm M-MODE Aortic Annulus Diameter 3.4 cm LA Ao Ratio MM 1.1 MV E Point Septal Separation 0.8 cm DOPPLER AV Peak Velocity 93.3 cm/s LVOT Peak Velocity 66.0 cm/s MV Peak Velocity 119.0 cm/s MV Area PHT 4.5 cm squared Mitral E to A Ratio 1.8 MV E' Velocity 47.5 cm/s Mitral E to MV E' Ratio 13.6 Mitral E to LV E' Lateral Ratio 11.3 Mitral E to LV E' Septal Ratio 17.4 TR Peak Velocity 151.8 cm/s TR Peak Gradient 9.2 mmHg TR Mean Velocity 124.5 cm/s TR Mean Gradient 6.6 mmHg TR Velocity Time Integral 36.4 cm Right Atrial Pressure 3.0 mmHg Pulmonary Artery Systolic Pressu 12.2 mmHg PV Peak Velocity 87.7 cm/s RV Acceleration Time 0.1 s RV Ejection Time 0.2 s RV AcT/ET 0.4 FINDINGS Left Ventricle Normal left ventricular cavity size. Moderately decreased left ventricular systolic function. Left ventricular ejection fraction is estimated at 40 %. Moderate global hypokinesis. Normal diastolic function. Right Ventricle Normal right ventricular size and systolic function. RVSP could not be calculated due to incomplete tricuspid regurgitation velocity profile. Right Atrium Normal right atrial size. Left Atrium Normal left atrial size. Mitral Valve Moderate mitral annular calcification. No mitral valve stenosis. No mitral valve regurgitation. Aortic Valve Aortic valve not well visualized. No aortic valve stenosis. Trace aortic valve regurgitation. Tricuspid Valve No tricuspid valve stenosis. Trace tricuspid valve regurgitation. Pulmonic Valve Pulmonic valve not well visualized. No pulmonary valve stenosis. Trace pulmonary valve regurgitation. Pericardium No pericardial effusion. Aorta Normal sized aortic root. IVC Inferior vena cava not visualized. Probably normal IVC dimension with >50% respiratory change of the inferior vena cava. CONCLUSIONS 1. This is a technically difficult study. Optison was used per protocol. 2. Normal left ventricular cavity size. Moderately decreased left ventricular systolic function. Left ventricular ejection fraction is estimated at 40 %. Moderate global hypokinesis. Normal diastolic function. 3. No prior similar studies to compare. Izabel Hays MD (Electronically Signed) Final Date: 14 May 2022 15:43 S
--- NOTE | 2022-05-07 12:00 | USCV_ITS ---
Junior Andersen Age: 71 Gender: M : 1950 Exam Date: 05/07/2022 12:00 Ordering Phys: Izabel Hays MD ([email or web address]) Technologist: JOSE [place] [facility] [place]: Carotid Stenosis Risk Factors: Previous Vascular Surgery: Right Brachial BP: / Left Brachial BP: / Right Left Velocity (cm/s) Spectral Plaque Velocity (cm/s) Spectral Plaque Syst/Diast Broadening Syst/Diast Broadening 71.70/ 13.20 Prox CCA 124.30/ 24.90 Hetro 62.80/ 16.50 Mid CCA 94.80 / 20.20 Hetro 101.40/13.20 Distal CCA 80.80 / 17.10 Hetro 152.30/18.60 Prox ICA 116.60/ 12.10 Hetro 90.10/ 12.40 Mid ICA 152.80/ 32.20 Hetro 97.90/ 29.50 Distal ICA 148.80/ 36.20 Hetro 174.50 ECA 190.70 Hetro 1.50 ICA/CCA 1.23 Antegrade Vertebral Antegrade 33.10/ 2.20 cm/s 65.70/ 15.80 cm/s Tri Subclavian Tri 194.2 187.0 0 0 FINDINGS ICA velocities progressed since 2012 CONCLUSIONS Right ICA stenosis 50-69%. Moderate atheromatous plaque right carotid bulb/ICA. Left ICA stenosis 50-69% in the mid left ICA. Moderate atheromatous plaque left carotid bulb/ICA. Normal antegrade Doppler flow noted in the right vertebral artery. Normal antegrade Doppler flow noted in the left vertebral artery. Julián Neri MD (Electronically Signed) Final Date: 07 May 2022 12:31 S
[2022-05-07] MEDS: perflutren protein-a microsphr 0.22 mg/mL SDV 3 mL IV (13:28)
== END 2022-05-07 11:45 | disposition home or self-care (01) ==
PROVIDERS: PCP Family Medicine; Visit Provider Internal Medicine Cardiovascular Disease
DX: R06.02 Shortness of breath (principal); I65.29 Occlusion and stenosis of unspecified carotid artery; R56.9 Unspecified convulsions; G43.711 Chronic migraine without aura, intractable, with status migrainosus
CPT/HCPCS: 93880; 99204; C8929; Q9956

== ENCOUNTER 2022-05-17 16:49 | Emergency (ER) | payer OTHER, SELFPAY ==
[2022-05-17 16:56] VITALS: BP 170/120; PULSE 80; RESP 32; TEMP 37.1; O2SAT 96; BMI 33.9
--- NOTE | 2022-05-17 17:12 | ECG_ITS ---
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 Measurements Intervals [place] Rate: 77 P: 103 RI: 145 QRS: 50 QRSD: 112 T: 234 QT: 368 QTc: 418 Interpretive Statements SINUS RHYTHM MODERATE INTRAVENTRICULAR CONDUCTION DELAY [105+ ms QRS DURATION, 80+ ms Q/S IN V1/V2, NO Q AND 60+ ms R IN I/aVL/V5/V6] ST DEVIATION AND MODERATE T-WAVE ABNORMALITY, CONSIDER LATERAL ISCHEMIA [-0.1+ mV T-WAVE IN I/aVL/V5/V6] ST DEVIATION AND MODERATE T-WAVE ABNORMALITY, CONSIDER INFERIOR ISCHEMIA [-0.1+ mV T-WAVE IN II/aVF] Compared to ECG 04/20/2019 21:18:35 Intraventricular conduction delay now present T-wave abnormality still present Possible ischemia still present Electronically Signed On 05-17-2022 20:59:14 SENIOR STOCK PLAN ADMINISTRATOR by Izabel Hays M.D. [id number]
--- NOTE | 2022-05-17 17:12 | XRR_ITS ---
PROCEDURE INFORMATION: Exam: XR Chest Exam date and time: 05/17/2022 5:26 PM Age: 71 years old Clinical indication: Cough and shortness of breath and other: Chest pain; Additional info: Cp, cough, 2 days TECHNIQUE: Imaging protocol: Radiologic exam of the chest. Views: 1 view. COMPARISON: CR XR chest 1V portable [id number] 12/06/2020 6:01 PM FINDINGS: Lungs: Mild perihilar and lower lobe interstitial infiltrates are present. Pleural spaces: Unremarkable. No pleural effusion. No pneumothorax. Heart/Mediastinum: Heart size is unchanged. Bones/joints: Sternotomy changes are stable. XR/XR chest 1V portable [id number] IMPRESSION: Mild perihilar and lower lobe interstitial infiltrates are present. Correlate for pneumonia versus pulmonary vascular congestion.
--- NOTE | 2022-05-17 17:13 | ED_ITS ---
HPI - Chest Pain General: Chief Complaint: Chest Pain Stated Complaint: Chest pains Time Seen by Provider: 05/17/22 17:04 Source: patient and family Mode of arrival: ambulatory Limitations: no limitations History of Present Illness: This history I did predominantly by the spouse with some interjections by the patient. He has a known history of coronary disease and has had prior coronary artery bypass. He states he has been having chest pain with associated weakness since last pm. Reportedly she called his operations research analyst who directed them to come to the emergency department. He has not had any other associated fevers chills etc. No other associated illness currently. MD complaint: chest pain Pertinent past history: coronary artery disease and CABG Associated symptoms: Reports dyspnea; Deny abdominal pain, fever(s), nausea or vomiting Risk Factors: Coronary artery disease risk factors: smoking history Review of Systems Const: Denies: fever(s) or chills Eyes: Denies: change in vision ENMT: Denies: throat pain, odynophagia, nasal discharge or nasal congestion Card: Reports: chest pain, pre-syncope and dyspnea on exertion Resp: Reports: dyspnea; Denies: productive cough or non-productive cough GI: Denies: abdominal pain, nausea, vomiting or diarrhea : Denies: flank pain, difficulty urinating, dysuria or urinary frequency Musc: Denies: neck pain, back pain, extremity pain or extremity swelling Skin/Breast: Denies: rash Neuro: Denies: headache(s), numbness in extremities or weakness in extremities Psych: Reports: anxiety PFSH ED PFSH: Medical History Bilateral carotid artery stenosis CAD (coronary artery disease) Chronic headache Complex partial epilepsy with generalization COPD (chronic obstructive pulmonary disease) Diabetes Erectile dysfunction Hypertension Myocardial infarct Urinary retention Surgical History H/O circumcision H/O heart artery stent History of appendectomy History of coronary artery bypass graft History of laparotomy S/P carotid endarterectomy Family History Mother , at age 103 No problems noted. Father , at age 89 CHF (congestive heart failure) Other CAD (coronary artery disease) Hypertension Mesothelioma Social History Smoking and tobacco status: current every day smoker cigarettes Packs smoked per day: 1.5 Years cigarettes smoked: 52 [ Other cigarette details: was 2ppd] Smoking risk assessment/counseling performed?: No Alcohol intake: never Marital status: service: Yes Current occupational status: retired and disabled History of recent travel: No Physical Exam Narrative: EXAM NARRATIVE: Lies quietly in the bed will answer some questions but generally keeps his eyes closed and voids answering other questions. Does not appear diaphoretic or any acute distress. ( reports that this is not unusual behavior for him when he gets stressed or concerned about physical symptoms) Const: COMMON NORMALS: no acute distress and alert NUTRITIONAL APPEARANCE: overweight HENMT: COMMON NORMALS: normocephalic, Normal nasal mucous membranes and turbinates present and moist oral mucous membranes HEAD & SCALP: normocephalic FACE & SINUS: normal facial exam NOSE: Normal nasal mucous membranes and turbinates present Eye: COMMON NORMALS: Equal, round and reactive pupils present, EOMs intact bilaterally and conjunctivae normal CONJUNCTIVA: Yes conjunctivae normal PUPIL: Yes Equal, round and reactive pupils present Neck/C-Spine: COMMON NORMALS: full ROM, no JVD and No carotid bruits Chest: COMMONS NORMALS: normal inspection of the chest OTHER: He has tenderness to palpation the anterior chest. There is no skin changes, skin rash, subcutaneous emphysema, crepitance etc. Resp: COMMON NORMALS: normal respiratory effort, No retractions and No use of accessory muscles AUSCULTATION: diminished lung sounds (At bases) Cardio: COMMON NORMALS: no JVD, regular rate, No murmurs present (Cardio) and Peripheral pulses 2+ throughout RATE: regular rate PERIPHERAL PULSES: Peripheral pulses 2+ throughout GI: COMMON NORMALS: Normal to inspection, nondistended, normoactive bowel sounds present, Soft to palpation and non-tender PALPATION: Yes Soft to palpation : COMMON NORMALS: Yes no CVA tenderness BLADDER/KIDNEY EXAM: Yes no CVA tenderness Back/Pelvis: COMMON NORMALS: no CVA tenderness, thoracic and lumbar spine normal to inspection, no thoracic nor lumbar tenderness and thoraco-lumbar ROM normal Extremity: COMMON NORMALS: normal to inspection, full ROM, no calf tenderness and no pedal edema Neuro: COMMON NORMALS: moves all extremities, no focal motor deficits and no sensory deficits noted SENSORIUM/ORIENTATION: Yes alert Skin: COMMON NORMALS: no rashes or lesions noted, no wounds and turgor normal GENERAL SKIN EXAM: no rashes or lesions noted and turgor normal Course Reevaluation(s): Reevaluation #1: Reexamination reveals him to be comfortable denies any chest pain at this time. Discussed preliminary findings with both he and spouse. He was given a single dose of Lasix at this time and will reevaluate. Time: 19:07 Reevaluation #2: Patient is quite animated and up sitting engaged with his and answers questions readily at this time states he feels markedly better. He has had good results from his Lasix with approximately 1500 mL output. No new or focal findings on reexamination. His second troponin is essentially unchanged and certainly not rising of any significance. Unlikely to be ACS at this point but more consistent with mild pulmonary congestion. As noted he has a slightly decreased EF from normal. Plan will be to discharge him on Lasix for the next week with cardiology follow-up Saturday as scheduled. All questions of both he and spouse were answered. Time: 20:44 Vital Signs: Vital signs: Vital Signs Temperature 98.7 F 05/17/22 16:56 Pulse Rate 75 05/17/22 19:38 Respiratory Rate 27 H 05/17/22 19:38 Blood Pressure 141/65 05/17/22 19:38 Pulse Oximetry 97 05/17/22 19:38 Oxygen Delivery Me thod 05/17/22 19:38 MDM - Chest Pain Medical Decision Making This gentleman made his way to the emergency department with a history of chest congestion symptoms without fever or cough.Does have known coronary artery disease and had a recent echocardiogram which showed a slightly decreased EF. Differential in the emergency department included ACS, pneumonia, CHF etc. His clinical picture did not suggest great vessel disease, thromboembolic issues at this time etc. Work-up did reveal a slight elevation his biomarkers which did not change number operator time. EKG does not show any concerning changes or changes from prior EKGs within the system. His BNP was noted to be slightly elevated. He responded readily to a single dose of Lasix with marked improvement in his symptoms and clinical picture. I explained previous echocardiogram results and its implications as well as his current picture and recommended a short course of several days of Lasix to offload any pulmonary congestion. Also discussed reduction in salt intake tobacco avoidance etc. Has cardiology follow-up this coming week and is stable at this time to be discharged home. Medical Records I reviewed the patient's medical records. Reviewed recent echocardiogram showed moderate global hypoperfusion with a ejection fraction of 40%. Lab Data I reviewed the patient's lab results. 05/17/22 17:12 05/17/22 17:12 Radiology Impressions Chest X-Ray 05/17/22 17:12 IMPRESSION: Mild perihilar and lower lobe interstitial infiltrates are present. Correlate for pneumonia versus pulmonary vascular congestion. Laboratory Results WBC 7.4 10^3/uL (4.0-10.0) 05/17/22 17:12 RBC 5.05 10^6/uL (4.1-5.3) 05/17/22 17:12 Hgb 14.6 g/dL (11.7-16.6) 05/17/22 17:12 Hct 46.4 % (42.0-52.0) 05/17/22 17:12 MCV 91.9 fl (80-94) 05/17/22 17:12 MCH 28.9 pg (28.0-34.0) 05/17/22 17:12 MCHC 31.5 g/dL (30.0-36.0) 05/17/22 17:12 RDW 13.0 % (12.1-15.1) 05/17/22 17:12 Plt Count 150 10^3/cmm (130-400) 05/17/22 17:12 MPV 11.0 fL (7.4-10.4) H 05/17/22 17:12 Neut % (Auto) 66.4 % 05/17/22 17:12 Lymph % (Auto) 20.3 % 05/17/22 17:12 [place] % (Auto) 9.1 % 05/17/22 17:12 Eos % (Auto) 2.6 % 05/17/22 17:12 Baso % (Auto) 0.8 % 05/17/22 17:12 Neut # (Auto) 4.90 10^3/uL (1.8-7.7) 05/17/22 17:12 Lymph # (Auto) 1.5 10^3/uL (0.8-4.8) 05/17/22 17:12 [place] # (Auto) 0.7 10^3/uL (0.2-0.9) 05/17/22 17:12 Eos # (Auto) 0.2 10^3/uL (0.0-0.8) 05/17/22 17:12 Baso # (Auto) 0.1 10^3/uL (0.0-0.1) 05/17/22 17:12 Nucleated RBC % (auto) 0 % 05/17/22 17:12 Nucleated RBCs # 0.0 /100WBC 05/17/22 17:12 Sodium 139 mmol/L (136-145) 05/17/22 17:12 Potassium 4.2 mmol/L (3.5-5.1) 05/17/22 17:12 Chloride 105 mmol/L (98-107) 05/17/22 17:12 Carbon Dioxide 27 mmol/L (22-29) 05/17/22 17:12 Anion Gap 11.2 (5-19) 05/17/22 17:12 BUN 13 mg/dL (8-23) 05/17/22 17:12 Creatinine 1.1 mg/dL (0.7-1.2) 05/17/22 17:12 GFR Calculation 66.4 mL/min (90-130) L 05/17/22 17:12 Glucose 208 mg/dL (65-115) H 05/17/22 17:12 Calculated Osmolality 294 mOsm/kg (285-295) 05/17/22 17:12 Calcium 9.1 mg/dL (8.5-10.5) 05/17/22 17:12 Total Bilirubin 0.4 mg/dL (0.15-1.2) 05/17/22 17:12 AST 19 U/L (0-40) 05/17/22 17:12 ALT 12 U/L (0-41) 05/17/22 17:12 Alkaline Phosphatase 112 U/L (40-130) 05/17/22 17:12 Troponin T Baseline 17 ng/L (0-15) H 05/17/22 17:12 Troponin T 120 Minute 15.96 ng/L (0-15) H 05/17/22 19:23 Delta Troponin T -1.04 ABS# (0-10) L 05/17/22 19:23 NT-Pro-B Natriuret Pep 794 pg/mL (0-125) H 05/17/22 17:12 Total Protein 7.0 g/dL (6.6-8.7) 05/17/22 17:12 Albumin 3.8 g/dL (3.5-5.2) 05/17/22 17:12 Globulin 3.2 g/dL (1.3-4.6) 05/17/22 17:12 EKG Data EKG 1: I personally reviewed and interpreted this EKG as follows: Interpretation: Initial EKG shows a ventricular rate of 72 beats minute with normal intervals, normal axis. Does have nonspecific ST-T wave changes noted inferior laterally. EKG 2: I personally reviewed and interpreted this EKG as follows: Interpretation: Repeat EKG this visit reveals a ventricular rate of 65 bpm. Normal DE interval, QRS duration, corrected QT interval. Normal axes. Essentially unchanged from previous EKG. no acute ischemic changes noted. Discharge Plan Discharge Patient Disposition: Home Clinical Impression: Pulmonary congestion Condition: Stable Prescriptions: New Lasix 40 mg tablet 40 mg PO DAILY MDD 1 7 Days Qty: 7 0RF No Action aspirin 325 mg tablet 325 mg PO DAILY Hold Instructions: on hold for procedure Label Comments: on hold for procedure clopidogrel 75 mg tablet 75 mg PO DAILY Hold Instructions: on hold for procedure Label Comments: on hold for procedure ibuprofen 600 mg tablet 600 mg PO Q8H PRN (Reason: Pain) Hold Instructions: on hold for procedure Label Comments: on hold for procedure atorvastatin [Lipitor] 80 mg tablet 80 mg PO DAILY topiramate [Topamax] 50 mg tablet 50 mg PO BID Qty: 60 6RF divalproex [Depakote ER] 500 mg tablet extended release 24 hr 1,000 mg PO DAILY Qty: 60 6RF Novolin N NPH U-100 Insulin 100 unit/mL suspension 40 unit SUBCUT QID melatonin 3 mg capsule 3 mg PO .HS Stiolto Respimat 2.5-2.5 mcg/actuation mist 2 puff inhalation DAILY Qty: 4 3RF Asmanex HFA 200 mcg/actuation HFA aerosol inhaler 1 puff inhalation DAILY Qty: 13 3RF Emgality Pen 120 mg/mL pen injector 120 mg SUBCUT ONCE Qty: 1 6RF Rx Instructions: Inject once monthly Emgality Pen 120 mg/mL pen injector 240 mg SUBCUT ONCE Qty: 2 0RF Rx Instructions: Loading dose for first month metoprolol tartrate 50 mg tablet 50 mg PO BID Qty: 180 2RF Hold Instructions: on hold for procedure nitroglycerin 0.4 mg tablet, sublingual 0.4 mg sublingual Q5M PRN (Reason: chest pain) Qty: 30 6RF Rx Instructions: do not exceed 3 doses per episode Lantus U-100 Insulin 100 unit/mL solution 100 unit SUBCUT BEDTIME gabapentin 300 mg capsule 300 mg PO TID tamsulosin 0.4 mg capsule 0.4 mg PO DAILY Discharge Orders: Discharge ED (Routine); Ordered 05/17/22 Ordered By: Gera Botello Referrals: Portia Lawrence MD [Primary Care Provider] - Izabel Hays MD [Physician] - 05/21/22 Discharge Diet: Low Salt Discharge Activity: Increase activity as tolerated Patient Instructions: Opioid Safety, Pain Management Activity Restrictions/Additional Instructions: Take all your usual prescribed medications. Do not smoke tobacco. Take the fluid pill we prescribed daily for the next 7 days. Follow-up with your operations research analyst on Saturday as scheduled. If you develop any sustained chest pain, shortness of breath or other concerns return to this or the nearest emergency department. Coding Level of Care Code ED 2Nd Grade Teacher for Selin Murillo Exam Comprehensive
[2022-05-17 17:44] LABS: Basophils # 0.1 10^3/uL (0.0-0.1); Basophils % 0.8 %; Eosinophils # 0.2 10^3/uL (0.0-0.8); Eosinophils % 2.6 %; Hematocrit 46.4 % (42.0-52.0); Hemoglobin 14.6 g/dL (11.7-16.6); Lymphocytes # 1.5 10^3/uL (0.8-4.8); Lymphocytes % 20.3 %; Mean Corpuscular HGB Conc 31.5 g/dL (30.0-36.0); Mean Corpuscular Hemoglobin 28.9 pg (28.0-34.0); Mean Corpuscular Volume 91.9 fl (80-94); Monocytes # 0.7 10^3/uL (0.2-0.9); Monocytes % 9.1 %; Neutrophils % 66.4 %; Nucleated Red Blood Cells % 0 %; Platelet Count 150 10^3/cmm (130-400); Red Blood Count 5.05 10^6/uL (4.1-5.3); White Blood Count 7.4 10^3/uL (4.0-10.0)
[2022-05-17] MEDS: sodium chloride 0.9% 500 ML 999 ML IV (18:00)
[2022-05-17 18:03] LABS: Troponin(5th) Baseline 17 ng/L (0-15)
[2022-05-17 18:12] LABS: Alanine Aminotransferase 12 U/L (0-41); Albumin Level 3.8 g/dL (3.5-5.2); Alkaline Phosphatase 112 U/L (40-130); Blood Urea Nitrogen 13 mg/dL (8-23); Calcium 9.1 mg/dL (8.5-10.5); Carbon Dioxide 27 mmol/L (22-29); Chloride 105 mmol/L (98-107); Globulin 3.2 g/dL (1.3-4.6); Glomerular Filtration Rate 66.4 mL/min (90-130); Glucose 208 mg/dL (65-115); NT Pro B Type Natriuretic Pept 794 pg/mL (0-125); Osmolality Calculated 294 mOsm/kg (285-295); Sodium 139 mmol/L (136-145); Total Bilirubin 0.4 mg/dL (0.15-1.2)
[2022-05-17 18:13] LABS: Anion Gap 11.2 (5-19); Aspartate Amino Transferase 19 U/L (0-40); Potassium 4.2 mmol/L (3.5-5.1)
[2022-05-17 18:41] VITALS: PULSE 79; RESP 24; O2SAT 97
[2022-05-17 18:44] VITALS: BP 141/65
--- NOTE | 2022-05-17 18:47 | ECG_ITS ---
[facility] Test Date: 2022-05-17 Pat Name: Junior Andersen Department: Room: Gender: Male Delivery Rep: : 1950 Requested By: Gera Botello Order Number: [id number] Casey MD: Izabel Hays M.D. Measurements Intervals [place] Rate: 65 P: 85 FL: 122 QRS: 49 QRSD: 138 T: 202 QT: 420 QTc: 438 Interpretive Statements SINUS RHYTHM INTRAVENTRICULAR CONDUCTION DELAY [130+ ms QRS DURATION] Compared to ECG 05/17/2022 17:06:42 T-wave abnormality no longer present Possible ischemia no longer present Electronically Signed On 05-17-2022 21:05:00 SENIOR CORPORATE ACCOUNTANT by Izabel Hays M.D. [id number]
[2022-05-17] MEDS: FUROsemide 10 mg/mL SDV 4mL 40 MG IVP (19:25)
[2022-05-17 19:38] VITALS: BP 141/65; PULSE 75; RESP 27; O2SAT 97
[2022-05-17 20:00] LABS: Troponin 5 2HR 15.96 ng/L (0-15)
[2022-05-17 20:03] LABS: Troponin 5 2HR Delta -1.04 ABS# (0-10)
[2022-05-17 20:55] VITALS: BP 141/65; PULSE 64; RESP 23; O2SAT 94
== END 2022-05-17 20:58 | disposition home or self-care (01) ==
PROVIDERS: Emergency Provider Emergency Medicine; PCP Family Medicine
DX: R09.89 Other specified symptoms and signs involving the circulatory and respiratory systems (principal)
CPT/HCPCS: 36415; 71045; 80053; 83880; 84484; 85025; 93005; 96361; 96374; 99285; J1940; J7040

== ENCOUNTER 2022-05-21 06:46 | Outpatient (CLI) | payer OTHER, SELFPAY ==
[2022-05-21 06:52] VITALS: BMI 32.9
--- NOTE | 2022-05-21 06:59 | ECG_ITS ---
[facility] Test Date: 2022-05-21 Pat Name: Junior Andersen Department: Room: Gender: Male Visual Supervisor: : 1950 Requested By: Izabel Hays Order Number: [id number] Casey MD: Izabel Hays M.D. Interpretive Statements NAME OF STUDY: LEXISCAN SESTAMIBI STRESS TEST INDICATION: Chest Pain; Shortness of Breath; Coronary Artery Disease PROCEDURE: At the baseline, the blood pressure was 139/66 mm Hg with a heart rate of 63 bpm. The electrocardiogram showed sinus rhythm, normal axis. IVCD. Non specific ST-T wave changes. ??? The Lexiscan was infused over a period of 20 seconds. A total of 0.4 milligrams of Lexiscan was infused. The stress phase was continued for a total of 5 minutes. Heart rate at the end of the stress phase was 65 bpm with a blood pressure of 133/55 mm Hg. The EKG at the peak infusion revealed no significant ST-T wave changes. The study was terminated due to protocol completeion. ??? Sestamibi was injected 20 seconds after the Lexiscan infusion. ??? Blood pressure at the end of the recovery phase was 121/64 mm Hg with a heart rate of 68 beats per minute. ??? CONCLUSION: 1. No significant EKG changes with the LexiScan infusion. 2. No LexiScan induced chest pain or cardiac arrhythmia. 3. Normal blood pressure and heart rate response. 4. Sestamibi/sestamibi perfusion scan pending; see separate report. Electronically Signed On 05-29-2022 6:05:11 SPRING WINDER by Izabel Hays M.D. [id number]
--- NOTE | 2022-05-21 07:00 | NMCV_ITS ---
NM reece perf SPECT r/s* [id number] Junior Andersen Age: 71 Gender: M : 1950 Exam Date: 05/21/2022 08:02 Ordering Phys: Izabel Hays MD ([email or web address]) Technologist: JESU Valverde Exam Location: [facility] Indications: EXERTIONAL SHORTNESS OF BREATH STRESS TEST Please see separate stress test report in [facility] for full findings IMAGE PROTOCOL Rest/Stress 1 Lexiscan Day Radiopharmaceutical Dose (mCi) Administration Site Administered by Rest: Tc-99m 10.9 IV JESU Dennison Sestamibi Stress:Tc-99m 32.3 IV JESU Dennison Sestamibi Rest: 21-May-2022 60 Discovery 630 Stress: 21-May-2022 30 Discovery 630 0.4mg Lexiscan. Images obtained in supine and prone position. SPECT RESULTS Technical Quality: Excellent Raw Data Analysis: Normal Image Corrections: No attenuation or motion correction applied Summed Stress Score: 9 Summed Rest Score: 11 Summed Difference Score: 4 PERFUSION FINDINGS Medium sized perfusion abnormality of basal to mid inferior, basal to mid inferolateral aragon with mild reversibility in mid anterolateral and apical lateral aragon on supine stress images with improved tracer uptake in prone stress images. FUNCTIONAL RESULTS (calculated via Gated SPECT) Stress Image LV EF (%): 39 Stress EDV (mL):163 TID: 0.95 Stress ESV (mL):100 FUNCTIONAL FINDINGS: The left ventricle is normal in size. Transient Ischemia Dilatation of 0.95. The left ventricular ejection fraction is moderately reduced with a value of 39%. There is hypokinesis of inferior and mid to apical lateral aragon. Increased end diastolic and end systolic volumes. IMPRESSIONS 1. Medium sized perfusion abnormality of basal to mid inferior, basal to mid inferolateral, mid anterolateral and apical lateral aragon. 2. This likely represents old myocardial infarction in right coronary artery/circumflex artery territory. 3. The left ventricular ejection fraction is moderately reduced with a value of 39%. 4. There is hypokinesis of inferior and mid to apical lateral aragon. 5. No significant coronary ischemia based on this study. Izabel Hays MD (Electronically Signed) Final Date: 23 May 2022 12:20 S
[2022-05-21] MEDS: regadenoson 0.4 Mg/5 ml Syringe IVP (08:35)
[2022-05-21 08:49] VITALS: BP 121/64; PULSE 70
== END 2022-05-21 06:47 | disposition home or self-care (01) ==
LOC: CDL 06:47
PROVIDERS: PCP Family Medicine; Visit Provider Internal Medicine Cardiovascular Disease
DX: R06.02 Shortness of breath (principal); R07.9 Chest pain, unspecified; I25.10 Atherosclerotic heart disease of native coronary artery without angina pectoris
CPT/HCPCS: 36415; 78452; 93017; 96374; A9500; J2785

== ENCOUNTER → 2022-08-21 12:43 | Outpatient (BNVA) | payer OTHER, SELFPAY | PROVIDERS: PCP Family Medicine; Visit Provider Specialist | DX: Z51.81 Encounter for therapeutic drug level monitoring (principal); R56.9 Unspecified convulsions; G43.711 Chronic migraine without aura, intractable, with status migrainosus; I65.23 Occlusion and stenosis of bilateral carotid arteries; F17.210 Nicotine dependence, cigarettes, uncomplicated; I25.10 Atherosclerotic heart disease of native coronary artery without angina pectoris; I11.0 Hypertensive heart disease with heart failure; I50.9 Heart failure, unspecified; R06.02 Shortness of breath; G47.33 Obstructive sleep apnea (adult) (pediatric); Z99.89 Dependence on other enabling machines and devices; J44.9 Chronic obstructive pulmonary disease, unspecified; E11.9 Type 2 diabetes mellitus without complications | CPT/HCPCS: 99213 ==

== ENCOUNTER → 2022-09-21 12:00 | Outpatient (BNVA) | payer OTHER, SELFPAY | PROVIDERS: PCP Family Medicine; Visit Provider Internal Medicine Cardiovascular Disease | DX: I11.0 Hypertensive heart disease with heart failure (principal); I50.9 Heart failure, unspecified; I65.23 Occlusion and stenosis of bilateral carotid arteries; F17.210 Nicotine dependence, cigarettes, uncomplicated; I25.10 Atherosclerotic heart disease of native coronary artery without angina pectoris; G47.33 Obstructive sleep apnea (adult) (pediatric); Z99.89 Dependence on other enabling machines and devices; J44.9 Chronic obstructive pulmonary disease, unspecified; E11.9 Type 2 diabetes mellitus without complications; R56.9 Unspecified convulsions; Z79.4 Long term (current) use of insulin | CPT/HCPCS: 99215 ==

== ENCOUNTER → 2022-10-19 11:49 | Outpatient (BNVA) | payer OTHER, SELFPAY | PROVIDERS: PCP Family Medicine; Visit Provider Nurse Practitioner Family | DX: I11.0 Hypertensive heart disease with heart failure (principal); I50.20 Unspecified systolic (congestive) heart failure; I25.10 Atherosclerotic heart disease of native coronary artery without angina pectoris; Z95.1 Presence of aortocoronary bypass graft; Z95.5 Presence of coronary angioplasty implant and graft; F17.200 Nicotine dependence, unspecified, uncomplicated; E78.5 Hyperlipidemia, unspecified; E66.9 Obesity, unspecified; J44.9 Chronic obstructive pulmonary disease, unspecified; G47.33 Obstructive sleep apnea (adult) (pediatric); N40.0 Benign prostatic hyperplasia without lower urinary tract symptoms; G89.29 Other chronic pain; M54.9 Dorsalgia, unspecified; I69.951 Hemiplegia and hemiparesis following unspecified cerebrovascular disease affecting right dominant side; F17.210 Nicotine dependence, cigarettes, uncomplicated | CPT/HCPCS: 80048; 83880; 99214 ==

== ENCOUNTER 2022-11-14 13:21 | Outpatient (CLI) | payer OTHER, SELFPAY ==
--- NOTE | 2022-11-14 13:45 | USCV_ITS ---
Junior Andersen Age: 71 Gender: M : 1950 Exam Date: 11/14/2022 14:04 Ordering Phys: Izabel Hays MD ([email or web address]) Technologist: CHING [place] [facility] [place]: Stenosis Risk Factors: Previous Vascular Surgery: Right Brachial BP: / Left Brachial BP: / Right Left Velocity (cm/s) Spectral Plaque Velocity (cm/s) Spectral Plaque Syst/Diast Broadening Syst/Diast Broadening 57.20/ 12.50 Prox CCA 92.00 / 20.50 65.70/ 18.40 Mid CCA 97.90 / 19.90 84.80/ 15.80 Distal CCA 87.10 / 20.90 132.10/21.80 Prox ICA 105.20/ 21.90 100.80/33.30 Mid ICA 105.40/ 26.40 75.20/ 22.20 Distal ICA 107.80/ 27.60 145.50 ECA 162.20 1.56 ICA/CCA 1.10 Antegrade Vertebral Antegrade 65.80/ 13.70 cm/s 75.60/ 15.10 cm/s Tri Subclavian Tri 185.3 241.5 0 0 FINDINGS Comparison:. 05/07/22 No significant elevation of systolic or diastolic velocities. Waveforms are normal. Mild plaque in the bifurcations. Antegrade vertebral arteries. CONCLUSIONS Bilateral ICA stenosis less than 50%. Stenosis slightly decreased since the prior exam. Dr. Krista Blas DO (Electronically Signed) Final Date: 14 November 2022 14:22 S
== END 2022-11-14 13:22 | disposition home or self-care (01) ==
LOC: RAD 13:21
PROVIDERS: PCP Family Medicine; Visit Provider Internal Medicine Cardiovascular Disease
DX: I65.23 Occlusion and stenosis of bilateral carotid arteries (principal)
CPT/HCPCS: 93880; 99215

== ENCOUNTER → 2022-11-15 07:47 | Outpatient (BNVA) | payer OTHER, SELFPAY | PROVIDERS: PCP Family Medicine; Referring Provider Specialist; Visit Provider Specialist | DX: R56.9 Unspecified convulsions (principal) | CPT/HCPCS: 95813; 95816 ==

== ENCOUNTER 2022-12-12 15:42 | Inpatient (IN) | payer OTHER, SELFPAY ==
[2022-12-12] VITALS (52 sets, daily range): BP systolic 105–177; BP diastolic 45–117; PULSE 57–104; RESP 13–35; TEMP 36.7–36.8; O2SAT 88–100
--- NOTE | 2022-12-12 15:58 | XRR_ITS ---
PROCEDURE INFORMATION: Exam: XR Chest Exam date and time: 12/12/2022 4:17 PM Age: 72 years old Clinical indication: Pain; Chest pressure; Additional info: Chest pain TECHNIQUE: Imaging protocol: Radiologic exam of the chest. Views: 1 view. COMPARISON: CR (CHEST, ) 05/17/2022 5:26 PM FINDINGS: Lungs: Unremarkable. No consolidation. Pleural spaces: Unremarkable. No pleural effusion. No pneumothorax. Heart/Mediastinum: Unremarkable. No cardiomegaly. Bones/joints: Sternal sutures are again seen. No acute findings. XR/XR chest 1V portable [id number] IMPRESSION: No acute findings.
--- NOTE | 2022-12-12 15:59 | ECG_ITS ---
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 Measurements Intervals [place] Rate: 60 P: 87 NE: 123 QRS: 54 QRSD: 130 T: 194 QT: 426 QTc: 427 Interpretive Statements SINUS RHYTHM MODERATE INTRAVENTRICULAR CONDUCTION DELAY [110+ ms QRS DURATION] ST DEVIATION AND MODERATE T-WAVE ABNORMALITY, CONSIDER LATERAL ISCHEMIA [-0.1+ mV T-WAVE IN I/aVL/V5/V6] Compared to ECG 05/17/2022 18:47:51 T-wave abnormality now present Possible ischemia now present Electronically Signed On 12-12-2022 16:37:18 CDT by Izabel Hays M.D. [email or web address]/[id number]
[2022-12-12 16:17] LABS: Basophils % 0.6 %; Eosinophils # 0.4 10^3/uL (0.0-0.8); Eosinophils % 5.1 %; Hematocrit 35.2 % (37-53); Lymphocytes % 14.1 %; Mean Corpuscular HGB Conc 31.5 g/dL (30-55); Mean Corpuscular Hemoglobin 29.3 pg (27-33); Mean Corpuscular Volume 92.9 fl (82-101); Monocytes # 0.7 10^3/uL (0.2-0.9); Monocytes % 9.5 %; Neutrophils # 4.78 10^3/uL (1.8-7.7); Neutrophils % 70.1 %; Nucleated Red Blood Cells % 0 %; Platelet Count 172 10^3/cmm (157-399); Red Blood Count 3.79 10^6/uL (3.85-5.65); Red Cell Distribution Width 14.1 % (12.1-15.1); White Blood Count 6.82 10^3/uL (3.29-11.43)
--- NOTE | 2022-12-12 16:17 | W.ED.CHESTPA ---
HPI - Chest Pain General: Chief Complaint: Chest Pain Stated Complaint: Chest Pain Time Seen by Provider: 12/12/22 15:58 Source: patient Mode of arrival: ambulatory History of Present Illness: 72-year-old male presents to the emergency room intermittent chest pain for the last 2 days increases. he has a cardiac history he is also noted that with any activity he gets worsening pain. He did get improvement with the chest discomfort when he was given nitro. He is still currently having some chest pain on arrival. MD complaint: chest pain Onset (ago): day(s) Timing of current episode: episodic Prior episodes: Yes Onset: during rest Pain location: left chest Relieving factors: nothing Exacerbating factors: nothing Associated symptoms: Reports dyspnea and nausea; Deny abdominal pain, diaphoresis, fever(s), leg edema, palpitations, sense of impending doom, syncope or vomiting Review of Systems Const: Denies: fever(s), chills or diaphoresis ENMT: Denies: throat pain, ear or mastoid pain, nasal discharge or nasal congestion Card: Reports: chest pain and edema; Denies: palpitations, irregular heart rhythm or syncope Resp: Reports: dyspnea GI: Reports: nausea; Denies: abdominal pain or vomiting : Denies: flank pain, dysuria, urinary frequency or urinary urgency Skin/Breast: Denies: rash or pruritus PFSH ED PFSH: Medical History Acute cystitis without hematuria Balanitis Bilateral carotid artery stenosis BPH NOS w ur obs/LUTS CAD (coronary artery disease) Chronic headache Complex partial epilepsy with generalization COPD (chronic obstructive pulmonary disease) Current smoker Cutaneous wart Diabetes Erectile dysfunction Hypertension Myocardial infarct NSTEMI (non-ST elevated myocardial infarction) JENAE on CPAP Phimosis Systolic CHF with reduced left ventricular function, NYHA class 2 Urinary retention Surgical History H/O circumcision H/O heart artery stent History of appendectomy History of coronary artery bypass graft History of laparotomy S/P carotid endarterectomy Family History Mother , at age 103 No problems noted. Father , at age 89 CHF (congestive heart failure) Other CAD (coronary artery disease) Hypertension Mesothelioma Social History Smoking and tobacco status: current every day smoker cigarettes Packs smoked per day: 1.5 Years cigarettes smoked: 52 [ Other cigarette details: was 2ppd] Smoking risk assessment/counseling performed?: No Alcohol intake: never Substance/Drug Use: never Marital status: service: Yes Current occupational status: retired and disabled Do you think of yourself as: Straight/Heterosexual Physical Exam Const: GENERAL APPEARANCE: cooperative and comfortable ORIENTATION/CONSCIOUSNESS: Yes awake, Yes oriented to person, Yes oriented to place and Yes oriented to time HENMT: COMMON NORMALS: normocephalic, atraumatic and hearing grossly normal bilaterally HEAD & SCALP: normocephalic and atraumatic Resp: COMMON NORMALS: normal respiratory effort, No retractions, No use of accessory muscles and clear to auscultation bilaterally AUSCULTATION: clear to auscultation bilaterally Cardio: COMMON NORMALS: regular rate, regular rhythm and No murmurs present (Cardio) RATE: regular rate RHYTHM: regular rhythm GI: COMMON NORMALS: Soft to palpation and No hepatosplenomegaly present AUSCULTATION: Yes normoactive bowel sounds PALPATION: Yes Soft to palpation, No Tenderness to palpation present (GI), No Guarding due to palpation present (GI) and Yes No hepatosplenomegaly present Extremity: COMMON NORMALS: normal to inspection, capillary refill normal and no calf tenderness GENERAL: Yes edema Neuro: SENSORIUM/ORIENTATION: Yes oriented to person, Yes oriented to place and Yes oriented to time Skin: COMMON NORMALS: no rashes or lesions noted GENERAL SKIN EXAM: no rashes or lesions noted Course Vital Signs: Vital signs: Vital Signs Temperature 97.6 F 12/14/22 08:00 Pulse Rate 67 12/14/22 10:42 Respiratory Rate 16 12/14/22 10:42 Blood Pressure 101/49 12/14/22 08:00 Pulse Oximetry 97 12/14/22 10:42 Oxygen Delivery Me thod Room Air 12/14/22 08:22 Oxygen Flow Rate 2 12/13/22 20:49 MDM - Chest Pain Medical Decision Making T wave inversion with mild ST depression first troponin 101. Will admit treated per ACS protocol discussed with hospitalist consult cardiology orders written Medical Records I reviewed the patient's medical records. Lab Data I reviewed the patient's lab results. 12/14/22 04:36 12/14/22 04:36 Radiology Impressions Chest X-Ray 12/12/22 15:58 IMPRESSION: No acute findings. Laboratory Results WBC 6.82 10^3/uL (3.29-11.43) 12/12/22 16:10 RBC 3.79 10^6/uL (3.85-5.65) L 12/12/22 16:10 Hgb 11.10 g/dL (11.27-16.99) L 12/12/22 16:10 Hct 35.2 % (37-53) L 12/12/22 16:10 MCV 92.9 fl (82-101) 12/12/22 16:10 MCH 29.3 pg (27-33) 12/12/22 16:10 MCHC 31.5 g/dL (30-55) 12/12/22 16:10 RDW 14.1 % (12.1-15.1) 12/12/22 16:10 Plt Count 172 10^3/cmm (157-399) 12/12/22 16:10 MPV 11.0 fL (7.4-10.4) H 12/12/22 16:10 Neut % (Auto) 70.1 % 12/12/22 16:10 Lymph % (Auto) 14.1 % 12/12/22 16:10 Moody % (Auto) 9.5 % 12/12/22 16:10 Eos % (Auto) 5.1 % 12/12/22 16:10 Baso % (Auto) 0.6 % 12/12/22 16:10 Neut # (Auto) 4.78 10^3/uL (1.8-7.7) 12/12/22 16:10 Lymph # (Auto) 1.0 10^3/uL (0.8-4.8) 12/12/22 16:10 Moody # (Auto) 0.7 10^3/uL (0.2-0.9) 12/12/22 16:10 Eos # (Auto) 0.4 10^3/uL (0.0-0.8) 12/12/22 16:10 Baso # (Auto) 0.0 10^3/uL (0.0-0.1) 12/12/22 16:10 Nucleated RBC % (auto) 0 % 12/12/22 16:10 Nucleated RBCs # 0.0 /100WBC 12/12/22 16:10 Sodium 142 mmol/L (136-145) 12/12/22 16:10 Potassium 4.3 mmol/L (3.5-5.1) 12/12/22 16:10 Chloride 108 mmol/L (98-107) H 12/12/22 16:10 Carbon Dioxide 22 mmol/L (22-29) 12/12/22 16:10 Anion Gap 16.3 (5-19) 12/12/22 16:10 BUN 16 mg/dL (8-23) 12/12/22 16:10 Creatinine 1.2 mg/dL (0.7-1.2) 12/12/22 16:10 GFR Calculation 59.9 mL/min (90-130) L 12/12/22 16:10 Glucose 84 mg/dL (65-115) 12/12/22 16:10 Calculated Osmolality 294 mOsm/kg (285-295) 12/12/22 16:10 Calcium 8.4 mg/dL (8.5-10.5) L 12/12/22 16:10 Total Bilirubin 0.7 mg/dL (0.15-1.2) 12/12/22 16:10 AST 58 U/L (0-40) H 12/12/22 16:10 ALT 117 U/L (0-41) H 12/12/22 16:10 Alkaline Phosphatase 112 U/L (40-130) 12/12/22 16:10 Troponin T Baseline 101 ng/L (0-15) H* 12/12/22 16:10 Total Protein 6.2 g/dL (6.6-8.7) L 12/12/22 16:10 Albumin 3.5 g/dL (3.5-5.2) 12/12/22 16:10 Globulin 2.7 g/dL (1.3-4.6) 12/12/22 16:10 Discharge Plan Discharge Patient Disposition: Admitted As Inpatient Admit Provider: Junior Anders Clinical Impression: Non-ST elevation HI (NSTEMI), Unstable angina Condition: Stable Discharge Diet: Advance as tolerated, Usual diet, Cardiac and Diabetic Discharge Activity: Resume usual activity and Increase activity as tolerated Coding Level of Care Code ED Info Specialist for Selin Murillo
--- NOTE | 2022-12-12 16:30 | PC.PHAR ---
[facility]ED [facility] 12/12/22 4:30 PM
[2022-12-12 16:39] LABS: Alanine Aminotransferase 117 U/L (0-41); Albumin Level 3.5 g/dL (3.5-5.2); Alkaline Phosphatase 112 U/L (40-130); Anion Gap 16.3 (5-19); Aspartate Amino Transferase 58 U/L (0-40); Blood Urea Nitrogen 16 mg/dL (8-23); Calcium 8.4 mg/dL (8.5-10.5); Carbon Dioxide 22 mmol/L (22-29); Chloride 108 mmol/L (98-107); Globulin 2.7 g/dL (1.3-4.6); Glomerular Filtration Rate 59.9 mL/min (90-130); Glucose 84 mg/dL (65-115); Osmolality Calculated 294 mOsm/kg (285-295); Potassium 4.3 mmol/L (3.5-5.1); Sodium 142 mmol/L (136-145); Total Bilirubin 0.7 mg/dL (0.15-1.2); Total Protein 6.2 g/dL (6.6-8.7)
[2022-12-12 16:44] LABS: Troponin(5th) Baseline 101 ng/L (0-15)
[2022-12-12] MEDS: enoxaparin 120 mg/0.8 mL Syringe 110 MG SUBCUT (17:27)
--- NOTE | 2022-12-12 17:36 | P.HP_ITS ---
Providers/Chief Complaint Admitting Physician: Junior Anders MD Primary Care Provider: Portia Lawrence MD Chief Complaint: Chest Pain History of Present Illness Junior Andersen is a 72 year old male with a past medical history significant for coronary artery disease status post CABG in 2004 and multiple PCI/stents, carotid artery stenosis status post bilateral endarterectomy, epilepsy, COPD, type 2 diabetes mellitus, hypertension, and chronic systolic heart failure with reduced ejection fraction who presents to the emergency department with chest pain. Reports onset yesterday. Location is left-sided and substernal. Duration is continuous. Characteristic include pressure-like sensation. Exertion worsens symptoms. Rest improves symptoms. Reports radiation towards neck. Endorses associated symptoms of shortness of breath, dyspnea on exertion, non-productive cough and decreased exercise tolerance. Patient endorses an extensive history of coronary artery disease with prior bypass in 2004 at outside hospital and numerous stents. He is unsure when his last stent was placed but seems to be at least a few years ago, possibly 2020 per records review. Spouse is bedside and aides in providing history as well. She also notes he recently had a stroke treated in [place], [place] at the beginning of the month. He eventually got back home about a week ago. Since that time, things have been stressful for him. She tells of their trip to [facility] to obtain belongings in his tractor truck. He has reportedly had very poor sleep quality since returning home with minimal hours of sleep per night. Review of Systems Narrative: A complete review of systems was obtained and is negative except as stated in HPI Medications/Allergies Home Medications Medication Instructions Recorded Confirmed Last Taken Type atorvastatin 80 mg tablet (Lipitor) 80 mg PO DAILY SEE PHARMACY COMMENT 07/07/19 11/15/22 Unknown History divalproex 500 mg tablet,extended 1,000 mg PO DAILY #60 tabs 07/07/19 11/15/22 Unknown Rx release 24 hr (Depakote ER) topiramate 50 mg tablet (Topamax) 50 mg PO BID #60 tabs 07/07/19 11/15/22 Unknown Rx aspirin 325 mg tablet 325 mg PO DAILY 09/04/19 11/15/22 08/28/19 15:21 History clopidogrel 75 mg tablet 75 mg PO DAILY 09/04/19 11/15/22 Unknown History ibuprofen 600 mg tablet 600 mg PO Q8H PRN Pain 09/04/19 11/15/22 Unknown History tiotropium 2.5 mcg-olodaterol 2.5 2 puff inhalation DAILY #4 grams 04/25/20 11/15/22 Unknown Rx mcg/actuation mist for inhalation (Stiolto Respimat) mometasone 200 mcg/actuation HFA 1 puff inhalation DAILY #13 grams 04/26/20 11/15/22 Unknown Rx aerosol inhaler (Asmanex HFA) gabapentin 300 mg capsule 300 mg PO TID 12/06/20 11/15/22 12/06/20 History insulin glargine 100 unit/mL 100 unit SUBCUT BEDTIME 12/06/20 11/15/22 12/05/20 History subcutaneous solution (Lantus U-100 Insulin) tamsulosin 0.4 mg capsule 0.4 mg PO DAILY BPH 12/06/20 11/15/22 Unknown History melatonin 3 mg capsule 3 mg PO .HS 04/05/22 11/15/22 Unknown History nitroglycerin 0.4 mg sublingual 0.4 mg sublingual Q5M PRN chest 04/05/22 11/15/22 Unknown Rx tablet pain #30 tabs galcanezumab-gnlm 120 mg/mL 120 mg SUBCUT ONCE #1 mL 05/07/22 11/15/22 Unknown Rx subcutaneous pen injector (Emgality Pen) galcanezumab-gnlm 120 mg/mL 240 mg (2 mL) SUBCUT ONCE #2 mL 05/08/22 11/15/22 Unknown Rx subcutaneous pen injector (Emgality Pen) furosemide 20 mg tablet 20 mg PO DAILY #30 tabs 09/21/22 11/15/22 Unknown Rx insulin NPH isoph U-100 human 100 35 unit SUBCUT QID 09/21/22 11/15/22 Unknown History unit/mL subcutaneous suspension (Novolin N NPH U-100 Insulin isophane) metoprolol succinate 50 mg 50 mg PO BID #180 tabs 09/21/22 11/15/22 Unknown Rx tablet,extended release 24 hr potassium chloride 10 mEq 10 meq PO DAILY #30 caps 09/21/22 11/15/22 Unknown Rx capsule,extended release isosorbide dinitrate 5 mg tablet 5 mg PO BID 10/19/22 11/15/22 Unknown History Allergies Allergy/AdvReac Type Severity Reaction Status Date / Time adhesive tape Allergy ALGY-Rash Verified 12/12/22 15:54 PFSH Acute PFSH: Medical History (Updated 12/12/22 @ 19:19 by Junior Anders MD) Acute cystitis without hematuria Balanitis Bilateral carotid artery stenosis BPH NOS w ur obs/LUTS Chronic headache Complex partial epilepsy with generalization COPD (chronic obstructive pulmonary disease) Cutaneous wart Diabetes Erectile dysfunction Hypertension Myocardial infarct JENAE on CPAP Phimosis Systolic CHF with reduced left ventricular function, NYHA class 2 Urinary retention Surgical History H/O circumcision H/O heart artery stent History of appendectomy History of coronary artery bypass graft History of laparotomy S/P carotid endarterectomy Family History Mother , at age 103 No problems noted. Father , at age 89 CHF (congestive heart failure) Other CAD (coronary artery disease) Hypertension Mesothelioma Social History Smoking and tobacco status: current every day smoker cigarettes Packs smoked per day: 1.5 Years cigarettes smoked: 52 [ Other cigarette details: was 2ppd] Smoking risk assessment/counseling performed?: No Alcohol intake: never Substance/Drug Use: never Marital status: service: Yes Current occupational status: retired and disabled Do you think of yourself as: Straight/Heterosexual Vitals/I&O/Wt Last Vital Signs Temp 98.3 F 12/12/22 15:47 Pulse 69 12/12/22 17:00 Resp 35 H 12/12/22 17:00 BP 125/56 12/12/22 17:00 Pulse Ox 98 12/12/22 17:00 O2 Del Method Room Air 12/12/22 16:20 Weight last 48 hrs Weight 109.316 kg Physical Exam Narrative: General: Patient is awake and alert. In mild respiratory distress. Head: Normocephalic. Atraumatic. EOM intact. Neck: Elevated JVD. Cardiovascular: Normal S1 ans S1. No gallops. No murmurs. Edema in BLE present. Lungs: Mild distress exacerbated by speaking. Tachypnea when speaking. Faint crackles. No wheezes. Skin: No jaundice. No rashes. Abdomen: Normal bowel sounds, abdomen soft and nontender. Extremities: No cyanosis or clubbing. Musculoskeletal: No swollen or erythematous joints. Neurological: Moves all 4 extremities. No myoclonus. Data 12/12/22 16:10 12/12/22 16:10 A&P Assessment and plan (1) CAD (coronary artery disease): Extensive ischemic hx A/w chest pain and NSTEMI, type TBD Received therapeutic Lovenox in ED Start NTG drip due to persistent chest pain Cardiology consult NPO after midnight Telemetry monitoring Continue DAPT Continue high intensity statin Qualifiers: Coronary Disease-Associated Artery/Lesion type: unspecified vessel or lesion type [place] vs. transplanted heart: [place] heart Associated angina: angina presence unspecified Qualified Code(s): I25.10 - Atherosclerotic heart disease of [place] coronary artery without angina pectoris (2) Systolic CHF with reduced left ventricular function, NYHA class 2: Acute on chronic HFrEF exacerbation Strict I&Os Daily weights (3) COPD (chronic obstructive pulmonary disease): Not in acute exacerbation Continue home inhaler/nebs Qualifiers: COPD type: unspecified COPD Qualified Code(s): J44.9 - Chronic obstr uctive pulmonary disease, unspecified (4) Current smoker: Would benefit from cessation (5) Diabetes: Need to clarify home insulin dosing, home meds not yet updated SSI (6) Hypertension: Continue metoprolol NTG drip above Monitor BP closely (7) Complex partial epilepsy with generalization: Continue Depakote Plan DVT ppx: Given therapeutic Lovenox Code: Full Attestations Medical Necessity Statement*: Patient presents with acute on chronic heart failure exacerbation and NSTEMI with expected hospitalization to cross two midnights for serial IV diuresis, serial labs, telemetry monitoring, cardiac cath, and supportive care Coding Level of Care Code Acute Code for [facility] Diagnoses CAD (coronary artery disease) I25.10 Coronary Disease-Associated Artery/Lesion type: unspecified vessel or lesion type [place] vs. transplanted heart: [place] heart Associated angina: angina presence unspecified Systolic CHF with reduced left ventricular function, NYHA class 2 I50.20 COPD (chronic obstructive pulmonary disease) J44.9 COPD type: unspecified COPD Current smoker F17.200 Diabetes E11.9 Hypertension I10 Complex partial epilepsy with generalization G40.209
--- NOTE | 2022-12-12 18:03 | P.CONIM_ITS ---
Providers/Reason For Consult Consulting Physician/Specialty*: Gee Ochoa MD/ Cardiology Reason for Consult*: NSTEMI Requesting Physician: NSTEMI Attending Physician: Dr Castillo Primary Care Provider: Portia Lawrence MD History of Present Illness History of Present Illness Junior Andersen is a 72 year old male with past medical history of CAD and CABG in 2004, multiple stents, carotid endarterectomy, recent stroke who presented to hospital with 1 day of chest pressure. According to patient it is almost constant however exertion is making it worse. Still having ongoing chest pressure. It is substernal with radiation to the arms. His initial troponin is 109. EKG has nonspecific changes. Review of Systems Narrative: CONSTITUTIONAL: No fever chills weight loss or gain or night sweats. [] HEENT: Normocephalic, atraumatic.[] RESPIRATORY: Shortness of breath CARDIOVASCULAR: Shortness of breath and chest pain GI: no nausea vomiting diarrhea. [] BULK GAS SPECIALIST: No numbness, tingling, weakness or loss of function in any part of the body. [] MUSCULOSKELETAL: No knee or joint pain or rashes. [] Medications/Allergies Home Medications Medication Instructions Recorded Confirmed Last Taken Type atorvastatin 80 mg tablet (Lipitor) 80 mg PO DAILY SEE PHARMACY COMMENT 07/07/19 11/15/22 Unknown History divalproex 500 mg tablet,extended 1,000 mg PO DAILY #60 tabs 07/07/19 11/15/22 Unknown Rx release 24 hr (Depakote ER) topiramate 50 mg tablet (Topamax) 50 mg PO BID #60 tabs 07/07/19 11/15/22 Unknown Rx aspirin 325 mg tablet 325 mg PO DAILY 09/04/19 11/15/22 08/28/19 15:21 History clopidogrel 75 mg tablet 75 mg PO DAILY 09/04/19 11/15/22 Unknown History ibuprofen 600 mg tablet 600 mg PO Q8H PRN Pain 09/04/19 11/15/22 Unknown History tiotropium 2.5 mcg-olodaterol 2.5 2 puff inhalation DAILY #4 grams 04/25/20 11/15/22 Unknown Rx mcg/actuation mist for inhalation (Stiolto Respimat) mometasone 200 mcg/actuation HFA 1 puff inhalation DAILY #13 grams 04/26/20 11/15/22 Unknown Rx aerosol inhaler (Asmanex HFA) gabapentin 300 mg capsule 300 mg PO TID 12/06/20 11/15/22 12/06/20 History insulin glargine 100 unit/mL 100 unit SUBCUT BEDTIME 12/06/20 11/15/22 12/05/20 History subcutaneous solution (Lantus U-100 Insulin) tamsulosin 0.4 mg capsule 0.4 mg PO DAILY BPH 12/06/20 11/15/22 Unknown History melatonin 3 mg capsule 3 mg PO .HS 04/05/22 11/15/22 Unknown History nitroglycerin 0.4 mg sublingual 0.4 mg sublingual Q5M PRN chest 04/05/22 11/15/22 Unknown Rx tablet pain #30 tabs galcanezumab-gnlm 120 mg/mL 120 mg SUBCUT ONCE #1 mL 05/07/22 11/15/22 Unknown Rx subcutaneous pen injector (Emgality Pen) galcanezumab-gnlm 120 mg/mL 240 mg (2 mL) SUBCUT ONCE #2 mL 05/08/22 11/15/22 Unknown Rx subcutaneous pen injector (Emgality Pen) furosemide 20 mg tablet 20 mg PO DAILY #30 tabs 09/21/22 11/15/22 Unknown Rx insulin NPH isoph U-100 human 100 35 unit SUBCUT QID 09/21/22 11/15/22 Unknown History unit/mL subcutaneous suspension (Novolin N NPH U-100 Insulin isophane) metoprolol succinate 50 mg 50 mg PO BID #180 tabs 09/21/22 11/15/22 Unknown Rx tablet,extended release 24 hr potassium chloride 10 mEq 10 meq PO DAILY #30 caps 09/21/22 11/15/22 Unknown Rx capsule,extended release isosorbide dinitrate 5 mg tablet 5 mg PO BID 10/19/22 11/15/22 Unknown History Allergies Allergy/AdvReac Type Severity Reaction Status Date / Time adhesive tape Allergy ALGY-Rash Verified 12/12/22 15:54 PFSH Acute PFSH: Medical History Acute cystitis without hematuria Balanitis Bilateral carotid artery stenosis BPH NOS w ur obs/LUTS Chronic headache Complex partial epilepsy with generalization COPD (chronic obstructive pulmonary disease) Cutaneous wart Diabetes Erectile dysfunction Hypertension Myocardial infarct JENAE on CPAP Phimosis Systolic CHF with reduced left ventricular function, NYHA class 2 Urinary retention Surgical History H/O circumcision H/O heart artery stent History of appendectomy History of coronary artery bypass graft History of laparotomy S/P carotid endarterectomy Family History Mother , at age 103 No problems noted. Father , at age 89 CHF (congestive heart failure) Other CAD (coronary artery disease) Hypertension Mesothelioma Social History Smoking and tobacco status: current every day smoker cigarettes Packs smoked per day: 1.5 Years cigarettes smoked: 52 [ Other cigarette details: was 2ppd] Smoking risk assessment/counseling performed?: No Alcohol intake: never Substance/Drug Use: never Marital status: service: Yes Current occupational status: retired and disabled Do you think of yourself as: Straight/Heterosexual Vitals/I&O/Wt Last Vital Signs Temp 98.3 F 12/12/22 15:47 Pulse 69 12/12/22 17:00 Resp 35 H 12/12/22 17:00 BP 125/56 12/12/22 17:00 Pulse Ox 98 12/12/22 17:00 O2 Del Method Room Air 12/12/22 16:20 Weight last 48 hrs Weight 241 lb Physical Exam Narrative: GENERAL: Patient is alert, awake and oriented x3. [] NECK: No jugular vein distension. [] HEENT: No cyanosis. No icterus. No pallor. [] HEART: Regular S1 and S2. No murmur, rub or gallop. [] LUNGS: Clear to auscultate bilaterally. [] CENTRAL NERVOUS SYSTEM: Grossly nonfocal. [] EXTREMITIES: Lower extremities with 1+ edema bilaterally. Pulses palpable in the lower extremities, both dorsalis pedis and posterior tibial. [] Data 12/13/22 04:18 12/13/22 04:18 A&P Assessment and plan (1) Current smoker: (2) CAD (coronary artery disease): Qualifiers: Coronary Disease-Associated Artery/Lesion type: unspecified vessel or lesion type [place] vs. transplanted heart: [place] heart Associated angina: angina presence unspecified Qualified Code(s): I25.10 - Atherosclerotic heart disease of [place] coronary artery without angina pectoris (3) Diabetes: (4) Hypertension: (5) Systolic CHF with reduced left ventricular function, NYHA class 2: (6) NSTEMI (non-ST elevated myocardial infarction): Plan Patient has presented with typical chest pain symptoms and troponin elevation. Findings are consistent with non-ST elevation AL. We will proceed with coronary angiogram with possible percutaneous coronary intervention. Risks and benefits of the procedure have been discussed with the patient. N.p.o. past midnight. We will start anticoagulation. Also given aspirin loading dose. Trend troponins. As patient is having ongoing discomfort, we will proceed with nitroglycerine gtt Order echocardiogram Thank you for involving us with care of this patient. We will continue to follow. Please call with questions. Consult Attestations Medical Necessity Statement: Care expected to cross 2 midnights. Coding Level of Care Code Acute Code for [facility] Diagnoses Current smoker F17.200 CAD (coronary artery disease) I25.10 Coronary Disease-Associated Artery/Lesion type: unspecified vessel or lesion type [place] vs. transplanted heart: [place] heart Associated angina: angina presence unspecified Diabetes E11.9 Hypertension I10 Systolic CHF with reduced left ventricular function, NYHA class 2 I50.20 NSTEMI (non-ST elevated myocardial infarction) I21.4
[2022-12-12 18:49] LABS: Troponin 5 2HR 94.48 ng/L (0-15); Troponin 5 2HR Delta -6.52 ABS# (0-10)
[2022-12-12] MEDS: budesonide 0.5 mg/2 mL Neb INHALATION (19:51)
[2022-12-12] MEDS: nitroglycerin drip 50 MG/250 ML PREMIX IV (20:07)
[2022-12-12 21:47] LABS: Glucose Point of Care 108 mg/dL (70-110)
[2022-12-12 22:52] LABS: Troponin 5 6HR 87.04 ng/L (0-15); Troponin 5 6HR Delta -13.96 ng/L (0-12)
[2022-12-13] VITALS (107 sets, daily range): BP systolic 100–205; BP diastolic 40–118; PULSE 58–83; RESP 10–37; TEMP 36.7–37; O2SAT 90–99
[2022-12-13 04:54] LABS: Basophils # 0.1 10^3/uL (0.0-0.1); Basophils % 0.8 %; Eosinophils # 0.5 10^3/uL (0.0-0.8); Eosinophils % 7.2 %; Hematocrit 33.9 % (37-53); Lymphocytes # 0.9 10^3/uL (0.8-4.8); Lymphocytes % 14.3 %; Mean Corpuscular HGB Conc 30.7 g/dL (30-55); Mean Corpuscular Hemoglobin 28.7 pg (27-33); Mean Corpuscular Volume 93.6 fl (82-101); Mean Platelet Volume 11.4 fL (7.4-10.4); Monocytes # 0.6 10^3/uL (0.2-0.9); Monocytes % 9.7 %; Neutrophils # 4.26 10^3/uL (1.8-7.7); Neutrophils % 67.7 %; Nucleated Red Blood Cells % 0 %; Platelet Count 163 10^3/cmm (157-399); Red Blood Count 3.62 10^6/uL (3.85-5.65); Red Cell Distribution Width 14.2 % (12.1-15.1); White Blood Count 6.29 10^3/uL (3.29-11.43)
[2022-12-13 05:30] LABS: Anion Gap 13.3 (5-19); Blood Urea Nitrogen 20 mg/dL (8-23); Calcium 8.7 mg/dL (8.5-10.5); Carbon Dioxide 22 mmol/L (22-29); Chloride 112 mmol/L (98-107); Glomerular Filtration Rate 59.9 mL/min (90-130); Glucose 104 mg/dL (65-115); Magnesium 2.3 mg/dL (1.7-2.3); Osmolality Calculated 299 mOsm/kg (285-295); Phosphorus 3.7 mg/dL (2.5-4.5); Potassium 4.3 mmol/L (3.5-5.1); Sodium 143 mmol/L (136-145)
[2022-12-13 05:36] LABS: Glucose Point of Care 98 mg/dL (70-110)
--- NOTE | 2022-12-13 06:24 | XACV_ITS ---
Exam Room: [facility] Ht: 180 cm Wt: 109 kg BSA: 2.38 m2 Gender: Male : 1950 Any Known Allergies: Other Exam Priority: Routine Procedure(s): Procedure Description: Diagnostic procedure Procedure Description: PCI procedure Procedure Description: Venous Graft Catheterization Procedure Description: PLATT Graft Catheterization Procedure Description: Drug Eluting Coronary Stent Procedure Description: PTCA Procedure Description: Miscellaneous Procedure Description: ACT Procedure Description: Coronary Angiography Diagnostic Cath Status: Urgent Diagnostic Findings * Left Anterior Descending is occluded ostially. 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 * Right Coronary Artery has chronic total occlusion in proximal vessel.. * Ramus intermedius artery: Has mild to moderate luminal irregularities. * Bypass grafts: SVG to RCA is occluded. SVG to left circumflex artery is occluded. PLATT to LAD is patent. Apical LAD gives off collaterals to RCA.. * Mid to distal Circumflex: significant 80% stenosis, HAWA: 3 flow. * Left Main has no disease. * Coronary angiography shows right dominance. PCI Status: Urgent PCI Indication: NSTE - ACS Interventional Findings * PROCEDURE DETAIL: We engaged the left main artery with XB 3.5 guide catheter. IV heparin was administered to maintain anticoagulation. 0.014 run-through guidewire was used to cross the circumflex artery stenosis and was put in distal vessel. We predilated the stenosis with 2.5 x 12 mm semicompliant balloon. This was followed by placement of 2.75 x 18 mm resolute [place] drug-eluting stent. At this time final angiogram was performed that showed excellent stent expansion, no residual stenosis and HAWA-3 flow. Guidewire and guide catheter were removed. 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 * Mid Circumflex: 80% stenosis treated with a AB TREK 2.50X12 RX BALLOON, and MDT R MELISSA 2.75X18 TONEY. 0% residual stenosis, HAWA: 3 flow. Conclusions 1. Severe mid to distal left circumflex artery stenosis post PCI with 1 stent.. 2. Patient has prior CABG. patent PLATT to LAD. SVG to RCA and SVG to OM are occluded.. 3. Mid Circumflex was treated with a Balloon, and Drug Eluting Stent. Recommendations * Dual antiplatelet therapy with aspirin and plavix for atleast 1 year. * High intensity statin therapy. * Outpatient cardiology follow up in 2-4 weeks. Interventional RX Recommendation: PCI w/o planned CABG Diagnostic RX Recommendation: PCI w/o planned CABG Anticoagulation: Heparin Pressures Phase:Rest AO : 123 / 49 ( 74 ) @ 8:16:00 AM 136 / 58 ( 68 ) @ 8:20:00 AM 127 / 58 ( 78 ) @ 8:26:00 AM 115 / 50 ( 74 ) @ 8:29:00 AM Clinical Evaluation EBL: 5mL-10mL Procedural Details Procedure Consent Obtained. Admit Source: In Patient. Pre-Procedure Time Out. Identified patient by full name and date of as verbalized by the patient/guarantor. Does the consent match the physician's order: Yes. Accurate & Complete Informed Consent: Yes. Inpatient/Outpatient History & Physical on Chart: Yes. If H&P is completed, is and addenduem needed: Yes; If yes, is the addendum complete: No. Visualize and Verify Site with Patient/Guarantor: N/A. Relevant Radiology Images available: N/A. The risks, benefits, and alternatives of sedation and/or procedure were discussed by physician. The patient agrees to continue. Procedure started. [facility] Clinical Fraility Score: 4: Vulnerable. Furniture Servicer Indications: ACS > 24 hours. Chest Pain Symptom Assessment: Typical Angina Symptoms. Correct patient, site and procedure confirmed by cath team. Current diagnosis: NSTEMI. PERRLA. Strong, equal hand customer sales advisor bilaterally. Lungs clear x 5 lobes. IV Site on Arrival: 20 gauge in the left anticubital. IV Fluids: 0.9% NaCl at 75ml/hr. 0 mL infused prior to labourers. Pre Procedural Pulses: bilateral dorsalis pedis was 2+. Pre Procedural Pulses: bilateral posterior tibial was 2+. Oxygen started at 2liters/min via nasal canula. bilateral groins was prepped with chloroprep then draped in the usual sterile fashion. Physician notified. Baseline sample Acquired. HR: 65 BPM. Physician arrived. Physician scrubbed in. Immediate Pre-Procedure Time Out. Correct Patient: Yes; Correct Procedure: Yes; Correct Site: Yes; Correct Patient Position: Yes; Correct Supplies: Yes; Dried Flammable Prep: Yes; Blood Products Available: No;. Lidocaine 1% infiltrated to the right groin. Arterial access obtained with micropuncture set. Unable to advance access wire. Wire and needle out. Holding manual pressure to stop bleeding. Ultrasound obtained to assist with access. Arterial access obtained with micropuncture set. A 6 lebanese JL4 catheter in over wire. Multiple views taken of left coronary artery. Catheter removed over the standard wire. A 6 lebanese JR4 catheter in over wire. Multiple views taken of right coronary artery. SVG to RCA occluded. Catheter redirected to PLATT graft. PLATT to LAD visualized. Catheter removed over the standard wire. A 6 lebanese AL1 catheter in over wire. SVG to OM occluded. Catheter removed over the standard wire. 6 lebanese XB 3.5 guide catheter was inserted over the wire. Runthrough guidewire was advanced through the guide catheter to lesion in the mid Circ. Guidewire advanced across lesion. Balloon inserted to lesion in the mid Circ. Inflation number : 1 A AB TREK 2.50X12 RX BALLOON was prepped and advanced across the Mid CX , then inflated to 10 JAMES for 0:15 seconds. Balloon out. Stent inserted to lesion in the mid Circ. Inflation Number : 2 A ISAIAH Ramesh MELISSA 2.75X18 TONEY -Lot Number# [id number] EXP 12-12-2023 was prepped and advanced across the Mid CX. The stent was deployed at 12 JAMES for 0:16 seconds. Stent balloon out over wire. Angiography performed, checking results. Runthrough wire out. Angiography performed, checking results. ACT drawn. Results 272 seconds. Therapeutic limits - pre-heparin administration 90-150 seconds and monitoring heparin during a vascular procedure >250 seconds. Guide catheter out. A Right femoral angiogram was performed to determine safe placement of closure device. A Suture was successful obtaining hemostatsis at the Right Femoral artery insertion site. Sheath(s) sutured into position with 2-0 silk and sterile 4x4's and Op-site applied over the site. No oozing or signs and symptoms of hematoma noted. Arterial sheath flushed and connected to tranducer and pressure bag with heparinized saline. Post Procedure: Pulses reassessed and unchanged. PERRLA. Strong, equal hand customer sales advisor bilaterally. No VTE prophylaxis required. Medication's Wasted: Heparin = 3000 unit. Medication's Wasted: Other = Versed 1 mg. Total IV fluids: 57 mL. Post-op diagnosis: Severe mid to distal circumflex stenosis, status post pci with 1 stent. Patent PLATT to LAD. Complications: None. Estimated blood loss: 5mL-10mL. Responsiveness - Normal response to verbal stimuli; alert and oriented, PERRLA. Airway - Unaffected, no intervention required; spontaneous ventilation. Circulation: W/N/L, pulses unchanged. Nausea/Vomiting: No. Procedure completed. Patient transferred by bed to CPRU. Vital chart was stopped. Access Site Site: Right Femoral artery Sheath Size: 6 Fr Hemostasis Method: Suture Hemostasis Success: Successful Procedure Medications Start: 7:04 AM Stop: 7:04 AM Medication: Versed Amount: 1 mg Route: I.V. Start: 7:04 AM Stop: 7:04 AM Medication: Fentanyl Amount: 50 mcg Route: I.V. Start: 7:09 AM Stop: 7:09 AM Medication: Versed Amount: 1 mg Route: I.V. Start: 7:09 AM Stop: 7:09 AM Medication: Fentanyl Amount: 25 mcg Route: I.V. Start: 7:24 AM Stop: 7:24 AM Medication: Fentanyl Amount: 25 mcg Route: I.V. Start: 7:29 AM Stop: 7:29 AM Medication: Heparin Amount: 3000 units Route: I.V. Start: 7:31 AM Stop: 7:31 AM Medication: Versed Amount: 1 mg Route: I.V. Start: 7:34 AM Stop: 7:34 AM Medication: Heparin Amount: 7000 units Route: I.V. Start: 7:40 AM Stop: 7:40 AM Medication: Aggrastat 12.5 mg/250 mL Amount: 55 ml Route: I.V. bolus Start: 7:40 AM Stop: 7:40 AM Medication: Aggrastat 12.5 mg/250 mL Amount: 19.8 ml/hr Route: I.V. drip Start: 7:47 AM Stop: 7:47 AM Medication: Plavix Amount: 600 mg Route: P.O. Start: 7:47 AM Stop: 7:47 AM Medication: Aspirin Amount: 325 mg Route: P.O. I, the attending physician, have reviewed and verified all procedure medications. Yes, all medications given per verbal order History/Risk Factors Hypertension: Yes Dyslipidemia: No Peripheral Arterial Disease (PAD): No Myocardial Infarction (TN): Yes Obesity: No Renal Disease: No Tobacco Use: Current/Recent(w/in 1 year) Prior Interventions PCI: Yes CABG: Yes Valve Surgery: No Report Signatures Finalized by Gee Ochoa MD on 12/19/2022 06:43 PM
--- NOTE | 2022-12-13 07:03 | W.PM.OPSUD ---
Surgery/Procedure H&P Update DATE OF PROCEDURE: December 13, 2022 DATE H&P PERFORMED: 12/12/22 H&P UPDATE INFORMATION: I have reviewed H&P completed within last 30 days, I have examined patient prior to procedure and No changes to prior documentation PREOP DIAGNOSIS: NSTEMI PRIMARY INDICATION FOR PROCEDURE: NSTEMI PLANNED PROCEDURE: Left heart cath with possible percutaneous coronary intervention PATIENT REASSESSED PRIOR TO SEDATION, WITH NO CHANGE NOTED: Yes PHYSICAL EXAM: alert, oriented x 3, clear to auscultation bilaterally and regular rate & rhythm AIRWAY EVAL/ANESTHESIA PLAN: normal airway, ASA III, Local Anesthesia, Risks, benefits & alternatives of sedation and/or procedure discussed and Patient agrees to continue as planned ADDITIONAL INFORMATION: Moderate sedation
--- NOTE | 2022-12-13 07:05 | PC.PHAR ---
refaxed [facility] for [facility] list 7 am
--- NOTE | 2022-12-13 08:04 | USCV_ITS ---
Junior Andersen Age: 72 Gender: M : 1950 Exam Date: 12/13/2022 10:21 Ordering Phys: Gee Ochoa M.D ([email or web address]) Technologist: Thiago Rodriguez Exam Location: [facility] [place] Indication: post cath BP: 133 / 80 HR: 60 Rhythm: Sinus Technical Quality: Adequate MEASUREMENTS (Male / Female) Normal Values 2D ECHO LV Diastolic Diameter PLAX 4.9 cm 4.2 - 5.9 / 3.9 - 5.3 cm LV Systolic Diameter PLAX 4.2 cm IVS Diastolic Thickness 1.3 cm 0.6 - 1.0 / 0.6 - 0.9 cm IVS Systolic Thickness 2.0 cm LVPW Diastolic Thickness 1.2 cm 0.6 - 1.0 / 0.6 - 0.9 cm LVPW Systolic Thickness 1.6 cm LVOT Diameter 2.1 cm LV Ejection Fraction 2D Teich 32.1 % LV Ejection Fraction MOD 2C 61.9 % LV Ejection Fraction 2C AL 63.3 % LA Diameter 4.6 cm M-MODE Aortic Annulus Diameter 4.3 cm LA Ao Ratio MM 1.0 MV E Point Septal Separation 1.7 cm DOPPLER AV Peak Velocity 109.0 cm/s LVOT Peak Velocity 85.3 cm/s AV Area Cont Eq vti 2.9 cm squared AV Area Cont Eq pk 2.7 cm squared MV Area PHT 3.7 cm squared Mitral E to A Ratio 3.0 MV E' Velocity 130.0 cm/s TR Peak Velocity 235.5 cm/s TR Peak Gradient 22.2 mmHg TV Peak E Velocity 87.0 cm/s Right Atrial Pressure 3.0 mmHg Pulmonary Artery Systolic Pressu 25.2 mmHg RV Acceleration Time 0.2 s FINDINGS Left Ventricle Left ventricle is normal in size. LV systolic function is normal with EF of 50 to 55%. No regional wall motion abnormalities are seen. Right Ventricle Grossly normal Right Atrium Not well visualized Left Atrium Not well visualized Mitral Valve Moderate mitral annular calcification is seen. Aortic Valve Not well visualized. No significant stenosis or regurgitation. Tricuspid Valve Not well visualized Pulmonic Valve Not well visualized Pericardium Grossly normal Aorta Normal in size IVC Not well visualized CONCLUSIONS LV systolic function is normal with EF of 50 to 55%. Valvular structures are not well-visualized. Compared to prior echocardiogram from 04/2022, LV systolic function appears to have improved. Gee Ochoa MD (Electronically Signed) Final Date: 13 December 2022 13:48 S
--- NOTE | 2022-12-13 08:06 | PM.MISC ---
Miscellaneous Note Purpose of Documentation: Brief procedure note Note: LHC: Patent PLATT to LAD. It also supplies collaterals to RCA territory. Patent ramus artery stents. Mid to distal left circumflex artery has severe 80 to 90% stenosis. S/p successful revascularization with 1 stent. SVG to RCA and SVG to OM occluded. LAD is occluded. Continue aggrastat for 4 hours Aspirin and plavix for atleast 1 year High intensity statin therapy
--- NOTE | 2022-12-13 08:22 | PC.NURSE ---
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 pt very drowsy but will wake when spoken to. pt complains of no pain. right femoral access with sheath sutured in place. no bruising or hematoma noted. pt educated of restrictions of right leg. will continue to educated while in CPRU due to pts sleepiness. pt placed on monitor and will be monitored per protocol. plan is to recover in CPRU for approx 30 mins then he will be transferred back to CSU.
[2022-12-13] MEDS: atorvastatin 40 mg Tablet 80 MG PO (10:21)
[2022-12-13] MEDS: metoprolol succinate ER (24 HR) 50 mg Tablet PO ×2 (10:21→17:29)
[2022-12-13] MEDS: tamsulosin 0.4 mg Capsule PO (10:21)
[2022-12-13] MEDS: topiramate 25 mg Tablet 50 MG PO ×2 (10:21→17:29)
--- NOTE | 2022-12-13 10:40 | PC.CHAP ---
Pastoral Care Encounter/Spiritual Assessment Type of Contact [] Declined rivet spinner visit [] Patient/Family/Request visit [] Outpatient visit [] Follow-up visit [] Physician referral [] Code/Alert [x] Routine visit [] Staff referral [] Actively dying [] Patient sleeping [] Family support [] [] Out of room [] Palliative care [] [x] Receiving care in room [] Pre-surgical visit [] Trauma [] Long length of stay [] ICU visit [] Other: Relational/Emotional Strength [x] Patient feels connected with others/family/visitors/staff [] Distress [] Loneliness/isolation [] Abandonment Spirituality of Patient [x] Person of Shandra [] Attends Spiritism of their Shandra [x] Believes in Prayer [] Reads Bible or Roman Catholic materials [] There are Spiritual issues to be addressed Sales/Marketing Interventions [x] Prayer [x] Active listening [x] Non-anxious presence [x] Spiritual/emotional support [] Crisis/trauma care [x] Spiritual counseling [] Bereavement support [] Provided bereavement packet [] Provided Bible/devotional materials [] Provided toy/stuffed animal, coloring book to patient or family member [] Provided Communion [] Anointing/[place] [] Salvation [x] Completed spiritual assessment [] Other: Impact on Illness or Injury [] Angry [] Fearful [] Anxious [] Often cries [] Exhaustion [] Unable to work [] Unable to attend roman catholic [] Unable to walk/stand [] Unable to read [] Unable to drive [] Unable to eat/drink [] Unable to sleep [] Unable to be with family [] Patient intubated [] Other: Summary had tests waiting on doctor fro test results has a good attitude +1 family well be going home Time spent with patient 10 mins
[2022-12-13 10:53] LABS: Partial Thromboplastin Time 77.5 SECONDS (23.9-36.7)
[2022-12-13] MEDS: perflutren protein-a microsphr 0.22 mg/mL SDV 3 mL IV (11:05)
[2022-12-13 11:18] LABS: Glucose Point of Care 182 mg/dL (70-110)
--- NOTE | 2022-12-13 12:12 | PM.PN ---
Subjective Subjective: Patient went to cardiac cath this morning with PCI performed. He is doing well post procedure. Denies nausea, emesis, fevers or chills. Spouse is bedside and supportive. Medications: Reviewed: Yes Vitals/I&O/Wt Last Vital Signs Temp 98.6 F 12/13/22 05:50 Pulse 62 12/13/22 08:45 Resp 12 12/13/22 08:45 BP 134/85 12/13/22 09:00 Pulse Ox 95 12/13/22 08:45 O2 Del Method Room Air 12/13/22 08:45 12/12/22 12/13/22 12/13/22 22:59 06:59 14:59 Intake Total 127.25 / 127.25 480 / 480 Output Total 700 / 700 Balance 127.25 / 127.25 -700 / -572.75 480 / 480 Weight last 48 hrs Weight 109.826 kg Weight 109.316 kg Physical Exam Narrative: General: Patient is awake and alert. In bed. Head: Normocephalic. Atraumatic. EOM intact. Neck: Elevated JVD. Cardiovascular: Normal S1 ans S1. No gallops. No murmurs. Lungs: Faint crackles. No wheezes. Skin: No jaundice. No rashes. Abdomen: Normal bowel sounds, abdomen soft and nontender. Extremities: No cyanosis or clubbing. Musculoskeletal: No swollen or erythematous joints. Neurological: Moves all 4 extremities. No myoclonus. Data 12/13/22 04:18 12/13/22 04:18 A&P Assessment and plan (1) CAD (coronary artery disease): Complicated by NSTEMI Status post cardiac cath w/ PCI and stent this morning Cardiology following appreciate recommendations Continue DAPT Continue high intensity statin Appreciate cardiology post-cath orders Qualifiers: Coronary Disease-Associated Artery/Lesion type: unspecified vessel or lesion type [place] vs. transplanted heart: [place] heart Associated angina: angina presence unspecified Qualified Code(s): I25.10 - Atherosclerotic heart disease of [place] coronary artery without angina pectoris (2) Systolic CHF with reduced left ventricular function, NYHA class 2: Acute on chronic HFrEF exacerbation Strict I&Os Daily weights Echo is pending (3) COPD (chronic obstructive pulmonary disease): Not in acute exacerbation Continue home inhaler/nebs Qualifiers: COPD type: unspecified COPD Qualified Code(s): J44.9 - Chronic obstructive pulmonary disease, unspecified (4) Current smoker: Would benefit from cessation (5) Diabetes: SSI (6) Hypertension: Continue metoprolol (7) 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 Coding Level of Care Code Acute Code for Chg Fwd Diagnoses CAD (coronary artery disease) I25.10 Coronary Disease-Associated Artery/Lesion type: unspecified vessel or lesion type [place] vs. transplanted heart: [place] heart Associated angina: angina presence unspecified Systolic CHF with reduced left ventricular function, NYHA class 2 I50.20 COPD (chronic obstructive pulmonary disease) J44.9 COPD type: unspecified COPD Current smoker F17.200 Diabetes E11.9 Hypertension I10 Complex partial epilepsy with generalization G40.209
--- NOTE | 2022-12-13 12:14 | ECG_ITS ---
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 Measurements Intervals [place] Rate: 64 P: -37 NH: 124 QRS: 18 QRSD: 120 T: 229 QT: 413 QTc: 428 Interpretive Statements SINUS RHYTHM MODERATE INTRAVENTRICULAR CONDUCTION DELAY [110+ ms QRS DURATION] ST DEVIATION AND MODERATE T-WAVE ABNORMALITY, CONSIDER INFERIOR ISCHEMIA [-0.1+ mV T-WAVE IN II/aVF] Compared to ECG 12/12/2022 16:11:31 No significant changes Electronically Signed On 12-13-2022 13:22:20 CDT by Gee Ochoa M.D. [id number]
[2022-12-13] MEDS: nitroglycerin 0.4 mg sublingual Tablet SUBLINGUAL (12:28)
[2022-12-13 12:36] LABS: Partial Thromboplastin Time 39.8 SECONDS (23.9-36.7)
[2022-12-13] MEDS: insulin lispro 100 unit/1 mL SUBCUT ×3 (12:41→21:26)
--- NOTE | 2022-12-13 12:45 | PC.NURSE ---
Patient is having chest pain 8/10 pain scale. Patient is diaphoretic and short of breath. EKG has been obtained per chest pain protocol. Physician notified, received orders to give nitro sublingual, troponin series, and repeat ecg in 20 minutes.
[2022-12-13 12:50] LABS: Troponin(5th) Baseline 74 ng/L (0-15)
--- NOTE | 2022-12-13 14:14 | ECG_ITS ---
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 Measurements Intervals [place] Rate: 61 P: -22 LA: 133 QRS: 3 QRSD: 121 T: -36 QT: 406 QTc: 412 Interpretive Statements SINUS RHYTHM MODERATE INTRAVENTRICULAR CONDUCTION DELAY [105+ ms QRS DURATION, 80+ ms Q/S IN V1/V2, NO Q AND 60+ ms R IN I/aVL/V5/V6] ST DEVIATION AND MODERATE T-WAVE ABNORMALITY, CONSIDER LATERAL ISCHEMIA [-0.1+ mV T-WAVE IN I/aVL/V5/V6] Compared to ECG 12/13/2022 12:06:39 No significant changes Electronically Signed On 12-13-2022 17:38:08 CDT by Gee Ochoa M.D. [id number]
--- NOTE | 2022-12-13 14:55 | PC.NURSE ---
Sheath has been removed, no issues, no hematoma. Dressing is in place. Nurse will continue to monitor patient
[2022-12-13 15:10] LABS: Partial Thromboplastin Time 34.1 SECONDS (23.9-36.7)
[2022-12-13 15:27] LABS: Troponin 5 2HR 72.92 ng/L (0-15)
[2022-12-13 15:30] LABS: Troponin 5 2HR Delta -1.08 ABS# (0-10)
--- NOTE | 2022-12-13 16:43 | PC.NURSE ---
Patient arrived from lab aide at 0911am. Sheath intact with pressure bag. No hematoma or oozing present. Nurse will continue to monitor Q15min/ patient has been educated regarding activity restriction.
[2022-12-13 17:25] LABS: Glucose Point of Care 147 mg/dL (70-110)
[2022-12-13] MEDS: methocarbamol 750 mg Tablet PO ×2 (17:29→20:03)
--- NOTE | 2022-12-13 17:35 | PM.PN ---
Subjective Subjective: Patient's coronary angiogram demonstrated severe mid to distal left circumflex artery stenosis status post PCI with 1 stent. He had chest pain postprocedure however it has resolved. Vitals/I&O/Wt Last Vital Signs Temp 98.0 F 12/13/22 13:21 Pulse 63 12/13/22 16:45 Resp 23 H 12/13/22 16:45 BP 129/53 12/13/22 16:45 Pulse Ox 96 12/13/22 16:45 O2 Del Method Room Air 12/13/22 13:21 12/13/22 12/13/22 12/13/22 06:59 14:59 22:59 Intake Total 840 / 840 Output Total 700 / 700 Balance -700 / -572.75 840 / 840 Weight last 48 hrs Weight 242 lb 2 oz Weight 241 lb Physical Exam Narrative: GENERAL: Patient is alert, awake and oriented x3. [] NECK: No jugular vein distension. [] HEENT: No cyanosis. No icterus. No pallor. [] HEART: Regular S1 and S2. No murmur, rub or gallop. [] LUNGS: Clear to auscultate bilaterally. [] CENTRAL NERVOUS SYSTEM: Grossly nonfocal. [] EXTREMITIES: Lower extremities with 1+ edema bilaterally. Pulses palpable in the lower extremities, both dorsalis pedis and posterior tibial. [] Data 12/14/22 04:36 12/14/22 04:36 A&P Assessment and plan (1) Current smoker: (2) CAD (coronary artery disease): Qualifiers: Coronary Disease-Associated Artery/Lesion type: unspecified vessel or lesion type [place] vs. transplanted heart: [place] heart Associated angina: angina presence unspecified Qualified Code(s): I25.10 - Atherosclerotic heart disease of [place] coronary artery without angina pectoris (3) Diabetes: (4) Hypertension: (5) Systolic CHF with reduced left ventricular function, NYHA class 2: (6) NSTEMI (non-ST elevated myocardial infarction): Plan Patient's coronary angiogram demonstrated severe mid to distal left circumflex artery stenosis s/p PCI with 1 stent. Dual antiplatelet therapy with aspirin and Plavix. Initially had some chest discomfort postprocedure which has resolved by now. LV systolic function is normal Thank you for involving us with care of this patient. We will continue to follow. Please call with questions. [facility] [place] Medical Necessity Statement*: Care expected to cross 2 midnights. Coding Level of Care Code Acute Code for Chg Fwd Diagnoses Current smoker F17.200 CAD (coronary artery disease) I25.10 Coronary Disease-Associated Artery/Lesion type: unspecified vessel or lesion type [place] vs. transplanted heart: [place] heart Associated angina: angina presence unspecified Diabetes E11.9 Hypertension I10 Systolic CHF with reduced left ventricular function, NYHA class 2 I50.20 NSTEMI (non-ST elevated myocardial infarction) I21.4
[2022-12-13 19:06] LABS: Troponin 5 6HR 65.49 ng/L (0-15); Troponin 5 6HR Delta -8.51 ng/L (0-12)
[2022-12-13] MEDS: temazepam 15 mg Capsule PO (20:03)
[2022-12-13] MEDS: budesonide 0.5 mg/2 mL Neb INHALATION (20:49)
[2022-12-13 20:58] LABS: Glucose Point of Care 152 mg/dL (70-110)
[2022-12-14 04:00] VITALS: BP 100/40; PULSE 60; RESP 15; TEMP 36.9; O2SAT 96
[2022-12-14 05:33] LABS: Basophils % 0.5 %; Eosinophils # 0.5 10^3/uL (0.0-0.8); Eosinophils % 8.2 %; Hematocrit 36.3 % (37-53); Lymphocytes # 0.9 10^3/uL (0.8-4.8); Lymphocytes % 13.8 %; Mean Corpuscular HGB Conc 30.3 g/dL (30-55); Mean Corpuscular Hemoglobin 28.6 pg (27-33); Mean Corpuscular Volume 94.5 fl (82-101); Mean Platelet Volume 11.3 fL (7.4-10.4); Monocytes # 0.5 10^3/uL (0.2-0.9); Monocytes % 8.7 %; Neutrophils # 4.27 10^3/uL (1.8-7.7); Neutrophils % 68.3 %; Nucleated Red Blood Cells % 0 %; Platelet Count 198 10^3/cmm (157-399); Red Blood Count 3.84 10^6/uL (3.85-5.65); White Blood Count 6.24 10^3/uL (3.29-11.43)
[2022-12-14 05:57] LABS: Albumin Level 3.2 g/dL (3.5-5.2); Anion Gap 13.2 (5-19); Blood Urea Nitrogen 18 mg/dL (8-23); Calcium 8.6 mg/dL (8.5-10.5); Carbon Dioxide 23 mmol/L (22-29); Chloride 111 mmol/L (98-107); Glomerular Filtration Rate 54.6 mL/min (90-130); Glucose 98 mg/dL (65-115); Magnesium 2.3 mg/dL (1.7-2.3); Phosphorus 3.4 mg/dL (2.5-4.5); Potassium 4.2 mmol/L (3.5-5.1); Sodium 143 mmol/L (136-145)
[2022-12-14 06:33] LABS: Glucose Point of Care 111 mg/dL (70-110)
[2022-12-14 07:45] VITALS: BP 101/49; TEMP 36.4; O2SAT 95
[2022-12-14 08:00] VITALS: BP 101/49; PULSE 60; RESP 15; TEMP 36.4; O2SAT 95
[2022-12-14] MEDS: budesonide 0.5 mg/2 mL Neb INHALATION (08:14)
[2022-12-14] MEDS: ipratropium-albuterol 3 mL Neb INHALATION (08:14)
[2022-12-14 08:15] VITALS: PULSE 65; RESP 15; O2SAT 97
[2022-12-14 08:22] VITALS: PULSE 67; RESP 16; O2SAT 97
--- NOTE | 2022-12-14 08:53 | PM.PN ---
Subjective Subjective: Patient is doing well. Denies chest pain this morning. Vitals/I&O/Wt Last Vital Signs Temp 97.6 F 12/14/22 08:00 Pulse 67 12/14/22 08:22 Resp 16 12/14/22 08:22 BP 101/49 12/14/22 08:00 Pulse Ox 97 12/14/22 08:22 O2 Del Method Room Air 12/14/22 08:22 O2 Flow Rate 2 12/13/22 20:49 12/13/22 12/14/22 12/14/22 22:59 06:59 14:59 Intake Total 780 / 1620 400 / 2020 120 / 120 Output Total 400 / 400 300 / 700 Balance 380 / 1220 100 / 1320 120 / 120 Weight last 48 hrs Weight 244 lb 12.8 oz Weight 242 lb 2 oz Weight 241 lb Physical Exam Narrative: GENERAL: Patient is alert, awake and oriented x3. [] NECK: No jugular vein distension. [] HEENT: No cyanosis. No icterus. No pallor. [] HEART: Regular S1 and S2. No murmur, rub or gallop. [] LUNGS: Clear to auscultate bilaterally. [] CENTRAL NERVOUS SYSTEM: Grossly nonfocal. [] EXTREMITIES: Lower extremities with 1+ edema bilaterally. Pulses palpable in the lower extremities, both dorsalis pedis and posterior tibial. [] Data 12/14/22 04:36 12/14/22 04:36 A&P Assessment and plan (1) Current smoker: (2) CAD (coronary artery disease): Qualifiers: Coronary Disease-Associated Artery/Lesion type: unspecified vessel or lesion type [place] vs. transplanted heart: [place] heart Associated angina: angina presence unspecified Qualified Code(s): I25.10 - Atherosclerotic heart disease of [place] coronary artery without angina pectoris (3) Diabetes: (4) Hypertension: (5) Systolic CHF with reduced left ventricular function, NYHA class 2: (6) NSTEMI (non-ST elevated myocardial infarction): Plan Patient is stable. No chest pain. Continue dual antiplatelet therapy with aspirin and Plavix. Thank you for involving us with care of this patient. Patient is stable to be discharged from cardiology standpoint. Please call with questions. Attestations Medical Necessity Statement*: Care expected to cross 2midnights. Coding Level of Care Code Acute Code for Chg Fwd Diagnoses Current smoker F17.200 CAD (coronary artery disease) I25.10 Coronary Disease-Associated Artery/Lesion type: unspecified vessel or lesion type [place] vs. transplanted heart: [place] heart Associated angina: angina presence unspecified Diabetes E11.9 Hypertension I10 Systolic CHF with reduced left ventricular function, NYHA class 2 I50.20 NSTEMI (non-ST elevated myocardial infarction) I21.4
[2022-12-14] MEDS: aspirin 325 mg Tablet PO (09:51)
[2022-12-14] MEDS: topiramate 25 mg Tablet 50 MG PO (09:52)
[2022-12-14] MEDS: clopidogrel 75 mg Tablet PO (09:52)
[2022-12-14] MEDS: atorvastatin 40 mg Tablet 80 MG PO (09:52)
[2022-12-14] MEDS: methocarbamol 750 mg Tablet PO (09:52)
[2022-12-14] MEDS: tamsulosin 0.4 mg Capsule PO (09:52)
[2022-12-14] MEDS: metoprolol succinate ER (24 HR) 50 mg Tablet PO (09:52)
--- NOTE | 2022-12-14 10:09 | P.DS_ITS ---
Discharge Providers Date of Admission: 12/12/22 18:11 Date of Discharge: December 14, 2022 Attending Provider at Admission: Junior Anders MD Attending Provider at Discharge: Junior Anders MD Consults: Cardiology Primary Care Provider: Portia Lawrence MD Diagnoses at Discharge Discharge Diagnosis (1) CAD (coronary artery disease): Status: Acute Qualifiers: Coronary Disease-Associated Artery/Lesion type: unspecified vessel or lesion type [place] vs. transplanted heart: [place] heart Associated angina: angina presence unspecified Qualified Code(s): I25.10 - Atherosclerotic heart disease of [place] coronary artery without angina pectoris (2) Systolic CHF with reduced left ventricular function, NYHA class 2: Status: Acute (3) COPD (chronic obstructive pulmonary disease): Status: Acute Qualifiers: COPD type: unspecified COPD Qualified Code(s): J44.9 - Chronic obstructive pulmonary disease, unspecified (4) Current smoker: Status: Acute (5) Diabetes: Status: Acute (6) Hypertension: Status: Acute (7) Complex partial epilepsy with generalization: Status: Acute Reason for Visit Reason for Visit: Chest Pain Hospital Course Hospital Course Junior Andersen is a 72 year old male with a past medical history significant for coronary artery disease status post CABG in 2004 and multiple PCI/stents, carotid artery stenosis status post bilateral endarterectomy, epilepsy, COPD, type 2 diabetes mellitus, hypertension, and chronic systolic heart failure with reduced ejection fraction who presents to the emergency department with chest pain, found to have NSTEMI. Patient treated with ACS protocol. Cardiology consulted and patient underwent cardiac cath. Heart cath revealed culprit lesion in mid to distal left circumflex artery which underwent PCI with stent. Patient found to have heart failure with recovered ejection fraction with acute on chronic decompensated exacerbation which resolved with treatment. Echocardiogram revealed improved ejection fraction with LVEF of 50-55 percent. Medications optimized as per discharge medication reconciliation. Post procedure course was complicated by post-cath chest pain which eventually resolved. Patient counseled extensively on adherence to medication. Patient discharged to home in stable condition. Physical Exam Narrative: General: Patient is awake and alert.? Very pleasant. Head:? Normocephalic. Atraumatic. EOM intact. Neck: Elevated JVD. Cardiovascular: Normal S1 ans S1. No gallops. No murmurs. Lungs: ?CTAB. No wheezes. Skin: No jaundice. No rashes. Abdomen: Normal bowel sounds, abdomen soft and nontender. Extremities: No cyanosis or clubbing. Musculoskeletal: No swollen or erythematous joints. Neurological: Moves all 4 extremities. No myoclonus. Discharge Data Studies Completed and Pending Completed Studies During Hospitalization Category Date Time Status XR chest 1V portable [id number] Stat Exams 12/12/22 15:58 Completed CV. echo wo/w contrast [id number] Routine Ultrasound 12/13/22 08:04 Completed Pending at discharge Category Date Time Status [employer]ISTRATOR request for service Routine Exams 12/13/22 06:24 Taken Radiology Impressions Chest X-Ray 12/12/22 15:58 IMPRESSION: No acute findings. Laboratory Results WBC 6.24 10^3/uL (3.29-11.43) 12/14/22 04:36 RBC 3.84 10^6/uL (3.85-5.65) L 12/14/22 04:36 Hgb 11.00 g/dL (11.27-16.99) L 12/14/22 04:36 Hct 36.3 % (37-53) L 12/14/22 04:36 MCV 94.5 fl (82-101) 12/14/22 04:36 MCH 28.6 pg (27-33) 12/14/22 04:36 MCHC 30.3 g/dL (30-55) 12/14/22 04:36 RDW 14.0 % (12.1-15.1) 12/14/22 04:36 Plt Count 198 10^3/cmm (157-399) 12/14/22 04:36 MPV 11.3 fL (7.4-10.4) H 12/14/22 04:36 Neut % (Auto) 68.3 % 12/14/22 04:36 Lymph % (Auto) 13.8 % 12/14/22 04:36 [place] % (Auto) 8.7 % 12/14/22 04:36 Eos % (Auto) 8.2 % 12/14/22 04:36 Baso % (Auto) 0.5 % 12/14/22 04:36 Neut # (Auto) 4.27 10^3/uL (1.8-7.7) 12/14/22 04:36 Lymph # (Auto) 0.9 10^3/uL (0.8-4.8) 12/14/22 04:36 [place] # (Auto) 0.5 10^3/uL (0.2-0.9) 12/14/22 04:36 Eos # (Auto) 0.5 10^3/uL (0.0-0.8) 12/14/22 04:36 Baso # (Auto) 0.0 10^3/uL (0.0-0.1) 12/14/22 04:36 Nucleated RBC % (auto) 0 % 12/14/22 04:36 Nucleated RBCs # 0.0 /100WBC 12/14/22 04:36 APTT 34.1 SECONDS (23.9-36.7) 12/13/22 14:46 Sodium 143 mmol/L (136-145) 12/14/22 04:36 Potassium 4.2 mmol/L (3.5-5.1) 12/14/22 04:36 Chloride 111 mmol/L (98-107) H 12/14/22 04:36 Carbon Dioxide 23 mmol/L (22-29) 12/14/22 04:36 Anion Gap 13.2 (5-19) 12/14/22 04:36 BUN 18 mg/dL (8-23) 12/14/22 04:36 Creatinine 1.3 mg/dL (0.7-1.2) H 12/14/22 04:36 GFR Calculation 54.6 mL/min (90-130) L 12/14/22 04:36 Glucose 98 mg/dL (65-115) 12/14/22 04:36 POC Glucose 111 mg/dL (70-110) H 12/14/22 06:14 Calculated Osmolality 299 mOsm/kg (285-295) H 12/13/22 04:18 Calcium 8.6 mg/dL (8.5-10.5) 12/14/22 04:36 Phosphorus 3.4 mg/dL (2.5-4.5) 12/14/22 04:36 Magnesium 2.3 mg/dL (1.7-2.3) 12/14/22 04:36 Total Bilirubin 0.7 mg/dL (0.15-1.2) 12/12/22 16:10 AST 58 U/L (0-40) H 12/12/22 16:10 ALT 117 U/L (0-41) H 12/12/22 16:10 Alkaline Phosphatase 112 U/L (40-130) 12/12/22 16:10 Troponin T Baseline 74 ng/L (0-15) H 12/13/22 12:15 Troponin T 120 Minute 72.92 ng/L (0-15) H 12/13/22 14:46 Delta Troponin T -1.08 ABS# (0-10) L 12/13/22 14:46 Troponin T Hi Sens 6Hr 65.49 ng/L (0-15) H 12/13/22 18:32 Troponin T Hi Sens 6Hr Delta -8.51 ng/L (0-12) L 12/13/22 18:32 Total Protein 6.2 g/dL (6.6-8.7) L 12/12/22 16:10 Albumin 3.2 g/dL (3.5-5.2) L 12/14/22 04:36 Globulin 2.7 g/dL (1.3-4.6) 12/12/22 16:10 Vitals Last Vital Signs Temp 97.6 F 12/14/22 08:00 Pulse 67 12/14/22 08:22 Resp 16 12/14/22 08:22 BP 101/49 12/14/22 08:00 Pulse Ox 97 12/14/22 08:22 O2 Del Method Room Air 12/14/22 08:22 O2 Flow Rate 2 12/13/22 20:49 Discharge Plan Discharge Patient Disposition: Home Condition: Stable Prescriptions: New aspirin 325 mg Tablet 325 mg PO DAILY 30 Days Qty: 30 11RF Continued topiramate [Topamax] 50 mg tablet 50 mg PO BID Qty: 60 6RF Stiolto Respimat 2.5-2.5 mcg/actuation mist 2 puff inhalation DAILY Qty: 4 3RF nitroglycerin 0.4 mg tablet, sublingual 0.4 mg sublingual Q5M PRN (Reason: chest pain) Qty: 30 6RF Rx Instructions: do not exceed 3 doses per episode metoprolol succinate 50 mg tablet extended release 24 hr 50 mg PO BID Qty: 180 3RF furosemide 20 mg tablet 20 mg PO DAILY Qty: 30 3RF insulin glargine [Lantus U-100 Insulin] 100 unit/mL solution 12 unit SUBCUT BEDTIME tamsulosin 0.4 mg capsule 0.4 mg PO DAILY quetiapine 25 mg tablet 25 mg PO BEDTIME Advair Diskus 250-50 mcg/dose Blister With Device 1 inh INHALATION BID lisinopril 20 mg Tablet 10 mg PO DAILY Senexon-S 8.6-50 mg tablet 2 tab PO BID Rx Instructions: HOLD IF LOOSE STOOLS/DIARRHEA gabapentin 400 mg capsule 400 mg PO TID methocarbamol 750 mg tablet 750 mg PO QID glucose 4 gram Tablet,Chewable 16 g PO Q15M PRN (Reason: Hypoglycemia) Rx Instructions: MA REPEAT IF HYPOGLYCEMIA CONTINUES 15 MINUTES POST 1ST DOSE. Colace 100 mg Capsule 100 mg PO BID Miralax 17 gram/dose Powder 4 g PO DAILY mirtazapine 7.5 mg tablet 7.5 mg PO BEDTIME Vitamin D3 25 mcg (1,000 unit) Tablet 25 mcg PO DAILY melatonin 5 mg Tablet 5 mg PO BEDTIME Fish Oil 1,000 mg (120 mg-180 mg) Capsule 1 cap PO BID lidocaine 5 % Ointment 1 applic TOPICAL BID PRN (Reason: UNKNOWN) potassium chloride 20 mEq Tablet Extended Release 10 meq PO DAILY clopidogrel 75 mg tablet 75 mg PO DAILY 30 Days Qty: 30 11RF Patient Comments: on hold for procedure Changed rosuvastatin 20 mg Tablet 40 mg PO QPM Qty: 30 11RF Discharge Orders: Discharge Order (Routine); Ordered 12/14/22 Ordered By: Junior Anders Referrals: Gee Ochoa M.D [Physician] - (Your Dr. Ochoa follow up appointment will be scheduled while you are at your Edwige Blount appointment. Thank you.) Portia Lawrence MD [Primary Care Provider] - 1 week Edwige Blount FNP [Nurse Practitioner] - 01/03/23 2:45 pm Discharge Diet: Advance as tolerated, Usual diet, Cardiac and Diabetic Discharge Activity: Resume usual activity and Increase activity as tolerated Patient Instructions: Heart Failure (DC), Coronary Angioplasty (DC), Heart Catheterization (DC), CHF Stoplight, Opioid Safety, Post Angiogram Home Care Instructions Activity Restrictions/Additional Instructions: 1. No strenuous activity for three weeks. 2. Take medications as prescribed. 3. Follow up with PCP and cardiology. Discharge Attestations Time Spent in Discharge Care*: greater than 30 min Quality Metrics Clinical Quality Measures [ No reported AMI, CVA or VTE this stay] Coding Level of Care Code Acute Code for Chg Fwd Diagnoses CAD (coronary artery disease) I25.10 Coronary Disease-Associated Artery/Lesion type: unspecified vessel or lesion type [place] vs. transplanted heart: [place] heart Associated angina: angina presence unspecified Systolic CHF with reduced left ventricular function, NYHA class 2 I50.20 COPD (chronic obstructive pulmonary disease) J44.9 COPD type: unspecified COPD Current smoker F17.200 Diabetes E11.9 Hypertension I10 Complex partial epilepsy with generalization G40.209
[2022-12-14 10:42] VITALS: PULSE 67; RESP 16; O2SAT 97
--- NOTE | 2022-12-14 10:44 | PC.NURSE ---
Discharge Note Patient discharged to home via POV accompanied by spouse. Discharge instructions reviewed with patient and/or call center representative. Mobile pharmacy medications and/or prescriptions provided. Belongings/home medications returned.
== END 2022-12-14 10:44 | disposition home or self-care (01) | DRG 246 ==
LOC: ER 16:23 → CSU 18:11
PROVIDERS: Internal Medicine; Admitting Provider Internal Medicine; Emergency Provider Family Medicine; PCP Family Medicine; Visit Provider Internal Medicine
PROC: 027034Z Dilation of Coronary Artery, One Artery with Drug-eluting Intraluminal Device, Percutaneous Approach (ICD-10-PCS; principal; 2022-12-13 07:00)
PROC: 027034Z Dilation of Coronary Artery, One Artery with Drug-eluting Intraluminal Device, Percutaneous Approach (ICD-10-PCS; 2022-12-13 07:00)
DX: I21.4 Non-ST elevation (NSTEMI) myocardial infarction (principal); I50.23 Acute on chronic systolic (congestive) heart failure; I25.810 Atherosclerosis of coronary artery bypass graft(s) without angina pectoris; I25.10 Atherosclerotic heart disease of native coronary artery without angina pectoris; Z95.1 Presence of aortocoronary bypass graft; Z95.5 Presence of coronary angioplasty implant and graft; G40.409 Other generalized epilepsy and epileptic syndromes, not intractable, without status epilepticus; J44.9 Chronic obstructive pulmonary disease, unspecified; E11.9 Type 2 diabetes mellitus without complications; I11.0 Hypertensive heart disease with heart failure; Z86.73 Personal history of transient ischemic attack (TIA), and cerebral infarction without residual deficits; N40.1 Benign prostatic hyperplasia with lower urinary tract symptoms; I25.2 Old myocardial infarction; G47.33 Obstructive sleep apnea (adult) (pediatric); Z99.89 Dependence on other enabling machines and devices; F17.210 Nicotine dependence, cigarettes, uncomplicated; Z79.4 Long term (current) use of insulin; Z79.02 Long term (current) use of antithrombotics/antiplatelets
CPT/HCPCS: 36415; 36416; 71045; 80048; 80053; 80069; 82962; 83735; 84100; 84484; 85025; 85347; 85730; 93005; 93455; 94640; 96367; 96372; 99152; 99153; 99285; C1725; C1769; C1874; C1887; C1894; C8929; C9600; J1644; J1650; J1815; J2250; J3010; J3490; J7030; J7626; Q9956; Q9967

== ENCOUNTER → 2023-01-03 14:38 | Outpatient (BNVA) | payer OTHER, SELFPAY | PROVIDERS: PCP Family Medicine; Visit Provider Nurse Practitioner Family | DX: I25.10 Atherosclerotic heart disease of native coronary artery without angina pectoris (principal); I11.0 Hypertensive heart disease with heart failure; I50.20 Unspecified systolic (congestive) heart failure; F17.210 Nicotine dependence, cigarettes, uncomplicated | CPT/HCPCS: 99214 ==

== ENCOUNTER 2023-01-30 09:34 | Outpatient (RCR) | payer OTHER, SELFPAY | END 2023-02-12 23:59 | disposition home or self-care (01) | LOC: CR 09:34 | PROVIDERS: PCP Family Medicine; Referring Provider Family Medicine; Visit Provider Family Medicine | DX: I21.3 ST elevation (STEMI) myocardial infarction of unspecified site (principal) | CPT/HCPCS: 93798 ==

== ENCOUNTER 2023-02-13 09:21 | Outpatient (RCR) | payer OTHER, SELFPAY ==
--- NOTE | 2023-02-13 12:17 | PC.NUTR ---
Junior and his Linda requested to see a dietitian to discuss a cardiac consistent CHO diet. We discussed handouts regarding label reading, managing carbohydrates with lean protein and healthy fats, and using the diabetic plate method to plan meals. Both of them had questions including what is a carbohydrate, and is soda appropriate for example. Because they don't have internet I suggested they tell Martha when they come in if they would like more information that I could then print off for them. Though they were thankful at the end, I think compliance unlikely.
== END 2023-03-14 23:59 | disposition home or self-care (01) ==
LOC: CR 09:21
PROVIDERS: PCP Family Medicine; Referring Provider Family Medicine; Visit Provider Family Medicine
DX: I21.3 ST elevation (STEMI) myocardial infarction of unspecified site (principal)
CPT/HCPCS: 93798

== ENCOUNTER 2023-02-20 13:57 | Outpatient (CLI) | payer OTHER, SELFPAY ==
--- NOTE | 2023-02-20 14:08 | XR_ITS ---
WS: [email or web address] Right knee, 3 views, 02/20/2023 Clinical Data: BILATERAL KNEE PAIN Comparison: Right knee, 12/04/2007. Findings: No fractures or dislocations are seen. There is medial joint compartment narrowing with spurring of t he medial tibial plateau, lateral tibial plateau and medial femoral condyle. The posterior right cyr lla shows spurring. The soft tissues are unremarkable. Impression: Mild osteoarthritis of the right knee. Kellgren-Jose De Jesus Classification: grade 2 (minimal): definite osteophytes and possible joint space na rrowing
--- NOTE | 2023-02-20 14:08 | XR_ITS ---
WS: [email or web address] Left knee, 3 views, 02/20/2023 Clinical Data: BILATERAL KNEE PAIN Comparison: None. Findings: There is minimal medial joint compartment narrowing. The posterior left patella shows spurring. There are no new fractures or dislocations. There is irregularity of the medial tibial plateau and there m ay have been a prior injury. The soft tissues are normal. There are minimal vascular calcifications. There are surgical clips in the subcutaneous tissue of the medial aspect of the left knee and proxima l left tibia. Impression: Minimal osteoarthritis of the left knee. Kellgren-Jose De Jesus Classification: grade 1 (doubtful): doubtful joint space narrowing and possible ost eophytic lipping
--- NOTE | 2023-02-20 14:08 | XR_ITS ---
WS: [email or web address] Right wrist, 3 views, 02/20/2023 Clinical Data: R WRIST PAIN Comparison: None. Findings: No fractures or dislocations are seen. The carpal bones are intact. There is no soft tissue swelling. The distal radius and ulna are not remarkable. Impression: Negative right wrist.
--- NOTE | 2023-02-20 14:08 | XR_ITS ---
WS: [email or web address] Thoracic spine, AP and lateral views, 02/20/2023 Clinical Data: THORACIC SPINE PAIN Comparison: None. Findings: No compression fractures are seen. The disc heights are normal. There is osteoarthritic spurring of all the mid and lower thoracic vertebral bodies. The paravertebra l regions are normal. There are midline sternotomy sutures. Impression: Moderate osteoarthritic spurring of the mid and lower thoracic vertebral bodies.
--- NOTE | 2023-02-20 14:08 | XR_ITS ---
WS: [email or web address] Lumbar spine, 5 views including AP, lateral L5-S1 spot, lateral views in flexion, extension and neutr al position, 02/20/2023 Clinical Data: LBP Comparison: Lumbar spine, 03/16/2016. Findings: No compression fractures or subluxation is seen. There is degenerative disc narrowing at L2-L3. The t ransverse processes and SI joints are normal. There is anterior osteoarthritic spurring from L1-L5. On flexion and extension there is no limitation of motion or subluxation. There are cholecystectomy clips in the right upper quadrant. Impression: 1. Degenerative disc narrowing at L2-L3. 2. Moderate anterior osteoarthritis L1-L5. 3. On flexion and extension there is no limitation of motion or subluxation.
--- NOTE | 2023-02-20 14:08 | XR_ITS ---
WS: [email or web address] Cervical spine, 5 views, AP, odontoid open mouth, lateral with flexion, extension and neutral positio n, 02/20/2023 Clinical Data: CERVICAL SPINE PAIN Comparison: None. Findings: No compression fractures are seen. There is degenerative disc narrowing at C5-C6 and C6-C7 with calcification of the anterior longitudinal ligament at this level. There is no prevertebral soft tissue swelling. The odontoid is unremarkable. The lung apices are normal. There are clips in the so ft tissue of the right side of the neck possibly from carotid surgery. On flexion and extension there is no limitation of motion or subluxation. Midline sternotomy sutures are seen. Impression: 1. Degenerative disc narrowing at C5-C6 and C6-C7 with calcification of the anterior longitudinal lig ament. 2. On flexion and extension there is no limitation of motion or subluxation.
== END 2023-02-20 13:58 | disposition home or self-care (01) ==
LOC: RAD 13:59
PROVIDERS: PCP Family Medicine; Visit Provider Nurse Practitioner Family
DX: J98.4 Other disorders of lung (principal); M25.531 Pain in right wrist; M15.9 Polyosteoarthritis, unspecified; M47.814 Spondylosis without myelopathy or radiculopathy, thoracic region; M17.0 Bilateral primary osteoarthritis of knee; M47.816 Spondylosis without myelopathy or radiculopathy, lumbar region; M25.761 Osteophyte, right knee
CPT/HCPCS: 72050; 72070; 72110; 73110; 73562

== ENCOUNTER → 2023-02-25 11:52 | Outpatient (BNVA) | payer OTHER, SELFPAY | PROVIDERS: PCP Family Medicine; Visit Provider Internal Medicine Cardiovascular Disease | DX: I25.10 Atherosclerotic heart disease of native coronary artery without angina pectoris (principal); I25.2 Old myocardial infarction; I65.23 Occlusion and stenosis of bilateral carotid arteries; J44.9 Chronic obstructive pulmonary disease, unspecified; E11.9 Type 2 diabetes mellitus without complications; Z79.4 Long term (current) use of insulin; G47.33 Obstructive sleep apnea (adult) (pediatric); Z99.89 Dependence on other enabling machines and devices; I11.0 Hypertensive heart disease with heart failure; I50.20 Unspecified systolic (congestive) heart failure; Z95.1 Presence of aortocoronary bypass graft; Z98.890 Other specified postprocedural states; Z72.0 Tobacco use | CPT/HCPCS: 99214 ==

== ENCOUNTER 2023-03-15 10:57 | Outpatient (RCR) | payer OTHER, SELFPAY | END 2023-04-14 23:59 | disposition home or self-care (01) | LOC: CR 10:57 | PROVIDERS: PCP Family Medicine; Referring Provider Family Medicine; Visit Provider Family Medicine | DX: I73.9 Peripheral vascular disease, unspecified (principal) | CPT/HCPCS: 93798 ==

== ENCOUNTER 2023-03-19 09:14 | Outpatient (CLI) | payer OTHER, SELFPAY ==
[2023-03-19 09:31] VITALS: PULSE 65; RESP 18; O2SAT 95
[2023-03-19] MEDS: albuterol 2.5 mg/3 mL Neb INHALATION (09:31)
--- NOTE | 2023-03-19 10:18 | XRR_ITS ---
PROCEDURE INFORMATION: Exam: XR Right Wrist Exam date and time: 03/19/2023 10:30 AM Age: 72 years old Clinical indication: Pain; Wrist; Bilateral; Additional info: Right wrist pain TECHNIQUE: Imaging protocol: Radiologic exam of the right wrist. Views: 3 or more views. COMPARISON: CR XR wrist RT min 3V* [id number] 02/20/2023 2:19 PM FINDINGS: Bones/joints: Normal. No fracture or dislocation. No acute osseous, joint, or soft tissue abnormality. Soft tissues: Normal. XR/XR wrist RT min 3V* [id number] IMPRESSION: No acute findings.
--- NOTE | 2023-03-19 10:18 | XRR_ITS ---
PROCEDURE INFORMATION: Exam: XR Right Knee Exam date and time: 03/19/2023 10:30 AM Age: 72 years old Clinical indication: Pain; Knee; Right; Additional info: Bilateral pain TECHNIQUE: Imaging protocol: Radiologic exam of the right knee. Views: 1 or 2 views. COMPARISON: CR XR knee RT 3V* [id number] 02/20/2023 2:19 PM FINDINGS: Bones/joints: Moderate medial compartment narrowing with mild eburnation. Moderate tricompartment spurring. No fracture or dislocation. No acute osseous or joint abnormality. Soft tissues: Normal. XR/XR knee RT 1-2V [id number] IMPRESSION: Degenerative changes.
--- NOTE | 2023-03-19 10:18 | XRR_ITS ---
PROCEDURE INFORMATION: Exam: XR Thoracic Spine Exam date and time: 03/19/2023 10:30 AM Age: 72 years old Clinical indication: Pain in thoracic spine; Additional info: Thoracic pain TECHNIQUE: Imaging protocol: Radiologic exam of the thoracic spine. Views: 3 views. COMPARISON: CR XR thoracic spine 2V [id number] 02/20/2023 2:19 PM FINDINGS: Bones/joints: Median sternotomy suture wires. Slight midthoracic disc space narrowing. Moderate spurring particularly in the lower thoracic region. Anatomic alignment. The pedicles are intact. Soft tissues: The perivertebral soft tissues are normal. No acute fracture. Normal alignment. XR/XR thoracic spine 2V [id number] IMPRESSION: Mild degenerative disc disease.
--- NOTE | 2023-03-19 10:18 | XRR_ITS ---
PROCEDURE INFORMATION: Exam: XR Cervical Spine Exam date and time: 03/19/2023 10:30 AM Age: 72 years old Clinical indication: Neck pain; Additional info: Cervical pain TECHNIQUE: Imaging protocol: Radiologic exam of the cervical spine. Views: 2 or 3 views. COMPARISON: CR XR cervical spine 4-5V [id number] 02/20/2023 2:19 PM FINDINGS: Bones/joints: Well maintained disc spaces. Mild anterior spurring C4 through C7. Anatomic alignment. No fracture or dislocation. No acute fracture. Normal alignment. Soft tissues: Unremarkable. XR/XR cervical spine 3V* [id number] IMPRESSION: Mild degenerative changes.
--- NOTE | 2023-03-19 10:19 | XRR_ITS ---
PROCEDURE INFORMATION: Exam: XR Left Knee Exam date and time: 03/19/2023 10:30 AM Age: 72 years old Clinical indication: Pain; Knee; Left; Additional info: Bilateral knee pain TECHNIQUE: Imaging protocol: Radiologic exam of the left knee. Views: 1 or 2 views. COMPARISON: CR XR knee LT 3V* [id number] 02/20/2023 2:19 PM FINDINGS: Bones/joints: Medial surgical clips, likely vascular. Mild articular surface narrowing and spurring. No acute osseous or joint abnormality. Soft tissues: Normal. XR/XR knee LT 1-2V [id number] IMPRESSION: No acute findings.
--- NOTE | 2023-03-19 10:19 | XRR_ITS ---
PROCEDURE INFORMATION: Exam: XR Lumbosacral Spine Exam date and time: 03/19/2023 10:30 AM Age: 72 years old Clinical indication: Low back pain; Additional info: Lbp TECHNIQUE: Imaging protocol: Radiologic exam of the lumbosacral spine. Views: 2 or 3 views. COMPARISON: CR XR lumbar spine min 4V [id number] 02/20/2023 2:19 PM FINDINGS: Bones/joints: Well maintained disc spaces. The pedicles are intact. No fracture or dislocation. No acute fracture. Normal alignment. Soft tissues: The perivertebral soft tissues are normal. Other findings: Slight anterior lipping. XR/XR lumbar spine 2-3V* [id number] IMPRESSION: No acute findings.
== END 2023-03-19 09:15 | disposition home or self-care (01) ==
PROVIDERS: PCP Family Medicine; Visit Provider Nurse Practitioner Family
DX: M51.34 Other intervertebral disc degeneration, thoracic region (principal); M17.11 Unilateral primary osteoarthritis, right knee; M47.812 Spondylosis without myelopathy or radiculopathy, cervical region; M25.562 Pain in left knee; M54.50 Low back pain, unspecified; M25.531 Pain in right wrist; J98.4 Other disorders of lung; R91.1 Solitary pulmonary nodule
CPT/HCPCS: 72040; 72070; 72100; 73110; 73560; 94060; J7613

== ENCOUNTER 2023-04-16 09:31 | Outpatient (RCR) | payer OTHER, SELFPAY | END 2023-05-15 23:59 | disposition home or self-care (01) | LOC: CR 09:31 | PROVIDERS: PCP Family Medicine; Referring Provider Family Medicine; Visit Provider Family Medicine | DX: I73.9 Peripheral vascular disease, unspecified (principal) | CPT/HCPCS: 93798 ==

== ENCOUNTER 2023-04-19 11:38 | Emergency (ER) | payer OTHER, SELFPAY ==
[2023-04-19] VITALS (8 sets, daily range): BP systolic 112–143; BP diastolic 38–60; PULSE 48–65; RESP 12–17; TEMP 36.4; O2SAT 93–100
--- NOTE | 2023-04-19 12:29 | ED_ITS ---
HPI - Neuro Symptoms/Deficit 2 General: Chief Complaint: Neuro Symptoms/Deficit Stated Complaint: numbness in arms and legs Time Seen by Provider: 04/19/23 12:28 Source: patient Mode of arrival: ambulatory History of Present Illness: 72-year-old male presents emergency room with complaint of chest discomfort. In November 2022 patient had AR had stent placed. He is continuing cardiac rehab he had some chest discomfort while there today. Has some mild vague chest discomfort at this time no radiation no shortness of breath. No focal neurologic deficits noted. He is complaining also of bilateral numbness and tingling in his arms and legs. Onset (ago): minute(s) Severity: mild Quality: weak Relieving factors: none Exacerbating factors: none Associated symptoms: Reports chest pain; Deny no associated symptoms, cough, diaphoresis, fevers/chills, headache(s), anorexia, malaise, nausea, seizures, short of breath, syncope, tingling, vertigo, vomiting, weakness or other Review of Systems 2 Const: Denies: fever(s), chills, malaise or diaphoresis Card: Reports: chest pain; Denies: syncope Resp: Reports: dyspnea, non-productive cough and wheezing GI: Denies: abdominal pain, nausea or vomiting : Denies: dysuria, urinary frequency or urinary urgency Musc: Denies: neck pain or back pain Skin/Breast: Denies: rash Neuro: Denies: headache(s) or vertigo PFSH ED 2 PFSH: Medical History (Updated 04/27/23 @ 00:00 by ANA Gaviria) Tobacco abuse NSTEMI (non-ST elevated myocardial infarction) Systolic CHF with reduced left ventricular function, NYHA class 2 Bilateral carotid artery stenosis Erectile dysfunction Urinary retention Cutaneous wart Current smoker JENAE on CPAP Acute cystitis without hematuria Phimosis BPH NOS w ur obs/LUTS COPD (chronic obstructive pulmonary disease) Hypertension Diabetes Complex partial epilepsy with generalization Myocardial infarct Chronic headache CAD (coronary artery disease) Balanitis Surgical History (Updated 02/25/23 @ 15:32 by Jerad Morse MD) H/O heart artery stent S/P carotid endarterectomy H/O circumcision History of laparotomy History of appendectomy History of coronary artery bypass graft Family History Mother , at age 103 No problems noted. Father , at age 89 CHF (congestive heart failure) Other CAD (coronary artery disease) Hypertension Mesothelioma Social History Smoking and tobacco/nicotine status: current every day tobacco/nicotine user cigarettes Packs smoked per day: 1.5 Years cigarettes smoked: 52 [ Other cigarette details: was 2ppd] Alcohol intake: never Substance/Drug Use: never Marital status: service: Yes Current occupational status: retired and disabled Do you think of yourself as: Straight/Heterosexual NIH stroke score 2 NIHSS: Level Of Consciousness - 1a: 0 Level Of Consciousness Questions - 1b: Both Correct Level Of Consciousness Commands - 1c: Both Correct Best Gaze - 2: Normal Visual Gold - 3: No Visual Loss Facial Palsy - 4: N ormal Motor Arm Right - 5: No Drift Motor Arm Left - 5: No Drift Motor Leg Right - 6: No Drift Motor Leg Left - 6: No Drift Limb Ataxia - 7: A bsent Sensory - 8: Normal Best Language - 9: No Aphasia Dysarthia - 10: Normal Extinction And Inattention - 11: 0 Score: Total Score: 0 Physical Exam 2 Const: GENERAL APPEARANCE: cooperative and comfortable O RIENTATION/CONSCIOUSNESS: Yes awake, Yes oriented to person, Yes oriented to place and Yes oriented to time HENMT: COMMON NORMALS: normocephalic, atraumatic and hearing grossly normal bilaterally HEAD & SCALP: normocephalic and atraumatic Resp: COMMON NORMALS: normal respiratory effort, No retractions and No use of accessory muscles AUSCULTATION: wheezes Cardio: COMMON NORMALS: regular rate, regular rhythm and No murmurs present (Cardio) RATE: regular rate RHYTHM: regular rhythm GI: COMMON NORMALS: Soft to palpation and No hepatosplenomegaly present A USCULTATION: Yes normoactive bowel sounds PALPATION: Yes Soft to palpation, No Tenderness to palpation present (GI), No Guarding due to palpation present (GI) and Yes No hepatosplenomegaly present Extremity: COMMON NORMALS: normal to inspection, capillary refill normal, no clubbing, cyanosis or edema, no calf tenderness and no pedal edema Neuro: SENSORIUM/ORIENTATION: Yes oriented to person, Yes oriented to place and Yes oriented to time Skin: COMMON NORMALS: no rashes or lesions noted GENERAL SKIN EXAM: no rashes or lesions noted Course 2 Vital Signs: Vital signs: Vital Signs Temperature 97.5 F L 04/19/23 11:42 Pulse Rate 65 04/19/23 18:00 Respiratory Rate 14 04/19/23 18:00 Blood Pressure 143/60 04/19/23 18:00 Pulse Oximetry 98 04/19/23 18:00 Oxygen Delivery Me thod Room Air 04/19/23 11:42 MDM - Neuro Symptoms/Deficit Medical Decision Making Head CT negative repeat NIH score is still negative he is complaining of a numbness tingling sensation but he has normal sensation on scratch testing to the extremities. Troponin stable. EKG does not show any acute changes. T wave inversion present on previous EKG still present but no ST depression no ST elevation. Will discharge patient home follow-up with primary care return if has further problems. Medical Records I reviewed the patient's medical records. Lab Data I reviewed the patient's lab results. 04/19/23 12:59 04/19/23 12:59 Radiology Impressions Chest X-Ray 04/19/23 12:49 IMPRESSION: No acute pathology or significant interval change. Head CT 04/19/23 17:07 IMPRESSION: No acute pathology or significant interval change. Laboratory Results WBC 6.77 10^3/uL (3.29-11.43) 04/19/23 12:59 RBC 4.63 10^6/uL (3.85-5.65) 04/19/23 12:59 Hgb 13.10 g/dL (11.27-16.99) 04/19/23 12:59 Hct 41.4 % (37-53) 04/19/23 12:59 MCV 89.4 fl (82-101) 04/19/23 12:59 MCH 28.3 pg (27-33) 04/19/23 12:59 MCHC 31.6 g/dL (30-55) 04/19/23 12:59 RDW 12.9 % (12.1-15.1) 04/19/23 12:59 Plt Count 159 10^3/cmm (157-399) 04/19/23 12:59 MPV 10.6 fL (7.4-10.4) H 04/19/23 12:59 Neut % (Auto) 66.7 % 04/19/23 12:59 Lymph % (Auto) 19.8 % 04/19/23 12:59 Austin % (Auto) 8.9 % 04/19/23 12:59 Eos % (Auto) 3.5 % 04/19/23 12:59 Baso % (Auto) 0.7 % 04/19/23 12:59 Neut # (Auto) 4.51 10^3/uL (1.8-7.7) 04/19/23 12:59 Lymph # (Auto) 1.3 10^3/uL (0.8-4.8) 04/19/23 12:59 Austin # (Auto) 0.6 10^3/uL (0.2-0.9) 04/19/23 12:59 Eos # (Auto) 0.2 10^3/uL (0.0-0.8) 04/19/23 12:59 Baso # (Auto) 0.1 10^3/uL (0.0-0.1) 04/19/23 12:59 Nucleated RBC % (auto) 0 % 04/19/23 12:59 Nucleated RBCs # 0.0 /100WBC 04/19/23 12:59 Sodium 142 mmol/L (136-145) 04/19/23 12:59 Potassium 4.8 mmol/L (3.5-5.1) 04/19/23 12:59 Chloride 107 mmol/L (98-107) 04/19/23 12:59 Carbon Dioxide 26 mmol/L (22-29) 04/19/23 12:59 Anion Gap 13.8 (5-19) 04/19/23 12:59 BUN 23 mg/dL (8-23) 04/19/23 12:59 Creatinine 1.2 mg/dL (0.7-1.2) 04/19/23 12:59 GFR Calculation 59.9 mL/min (90-130) L 04/19/23 12:59 Glucose 146 mg/dL (65-115) H 04/19/23 12:59 Calculated Osmolality 300 mOsm/kg (285-295) H 04/19/23 12:59 Calcium 9.1 mg/dL (8.5-10.5) 04/19/23 12:59 Total Bilirubin 0.4 mg/dL (0.15-1.2) 04/19/23 12:59 AST 12 U/L (0-40) 04/19/23 12:59 ALT 8 U/L (0-41) 04/19/23 12:59 Alkaline Phosphatase 81 U/L (40-130) 04/19/23 12:59 Troponin T Baseline 21 ng/L (0-15) H 04/19/23 12:59 Troponin T 120 Minute 20.51 ng/L (0-15) H 04/19/23 14:33 Delta Troponin T -0.49 ABS# (0-10) L 04/19/23 14:33 Total Protein 6.7 g/dL (6.6-8.7) 04/19/23 12:59 Albumin 3.9 g/dL (3.5-5.2) 04/19/23 12:59 Globulin 2.8 g/dL (1.3-4.6) 04/19/23 12:59 All radiology interpretation(s) finalized by discharge Discharge Plan Discharge Patient Disposition: Home Clinical Impression: Atypical chest pain, Leg numbness Condition: Stable Prescriptions: No Action topiramate [Topamax] 50 mg tablet 50 mg PO BID Qty: 60 6RF metoprolol succinate 50 mg tablet extended release 24 hr 50 mg PO BID Qty: 180 3RF nitroglycerin 0.4 mg tablet, sublingual 0.4 mg sublingual Q5M PRN (Reason: chest pain) Qty: 30 6RF Rx Instructions: do not exceed 3 doses per episode tamsulosin 0.4 mg capsule 0.4 mg PO QPM fluticasone propion-salmeterol [Advair Diskus] 250-50 mcg/dose Blister With Device 1 inh INHALATION BID lisinopril 20 mg Tablet 10 mg PO QAM sennosides-docusate sodium [Senexon-S] 8.6-50 mg tablet 1 tab PO BID Rx Instructions: HOLD IF LOOSE STOOLS/DIARRHEA gabapentin 400 mg capsule 400 mg PO TID glucose 4 gram Tablet,Chewable 4 - 16 g PO Q15M PRN (Reason: Hypoglycemia) Rx Instructions: MAY REPEAT IF HYPOGLYCEMIA CONTINUES 15 MINUTES POST 1ST DOSE. polyethylene glycol 3350 [Miralax] 17 gram/dose Powder 17 g PO BID PRN (Reason: Constipation) cholecalciferol (vitamin D3) [Vitamin D3] 25 mcg (1,000 unit) Tablet 25 mcg PO TID melatonin 5 mg Tablet 5 mg PO BEDTIME omega 8-tug-rtt-fish oil [Fish Oil] 1,000 mg (120 mg-180 mg) Capsule 1 cap PO BID lidocaine 5 % Ointment 1 applic TOPICAL BID PRN (Reason: Pain) potassium chloride 20 mEq Tablet Extended Release 10 meq PO QAM folic acid 400 mcg tablet 400 mcg PO DAILY rosuvastatin 40 mg tablet 40 mg PO QPM insulin glargine 100 unit/mL (3 mL) Insulin Pen 20 unit SUBCUT BEDTIME PRN (Reason: BLOOD SUGAR) ipratropium-albuterol 20-100 mcg/actuation Mist 1 puff INHALATION QID aspirin 325 mg tablet 325 mg PO QAM clopidogrel 75 mg tablet 75 mg PO QAM Patient Comments: on hold for procedure furosemide 20 mg tablet 20 mg PO QAM Discharge Orders: Discharge ED (Routine); Ordered 04/19/23 Ordered By: Foster Castillo Referrals: Portia Lawrence MD [Primary Care Provider] - Discharge Diet: Usual diet Discharge Activity: Increase activity as tolerated Patient Instructions: Opioid Safety, Pain Management Activity Restrictions/Additional Instructions: Thank you for choosing [facility] for your healthcare needs today. Please realize this is an emergency room and that we are providing you with a medical screening exam and this may not be complete and all inclusive of all the testing and or work up that you may need to determine your ailment or severity of your illness. It is very important that you follow up as instructed or that you return to the Emergency Department should you have concerns or if your condition changes or worsens in any way. You are seen today for chest discomfort and discomfort in your legs. There is no evidence of acute coronary syndrome and your EKGs and cardiac enzymes were normal. Neurologic exam does not show evidence of acute stroke CT of the head is negative discharge home continue aspirin and clopidogrel as previously prescribed follow-up with your primary care doctor if symptoms persist Coding Level of Care Code ED Postdoctoral Research Associate for Selin Murillo
--- NOTE | 2023-04-19 12:37 | ECG_ITS ---
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 Measurements Intervals Marilla Rate: 60 P: 112 CT: 131 QRS: 46 QRSD: 133 T: 192 QT: 441 QTc: 443 Interpretive Statements SINUS RHYTHM INTRAVENTRICULAR CONDUCTION DELAY [130+ ms QRS DURATION] Compared to ECG 12/13/2022 13:04:35 T-wave abnormality no longer present Possible ischemia no longer present Electronically Signed On 04-19-2023 16:42:07 TELEVISION ENGINEERING TEACHER by Luisito Barajas M.D. [id number]
--- NOTE | 2023-04-19 12:49 | XRR_ITS ---
PROCEDURE INFORMATION: Exam: XR Chest Exam date and time: 04/19/2023 1:03 PM Age: 72 years old Clinical indication: Cough and dyspnea; Prior surgery; Surgery date: 6+ months; Surgery type: Cardiac; Patient HX: Extremity numbness; Additional info: Dyspnea/cough TECHNIQUE: Imaging protocol: Radiologic exam of the chest. Views: 1 view. COMPARISON: CR XR chest 1V portable [id number] 12/12/2022 4:17 PM FINDINGS: Lungs: No significant active pathology. Pleural spaces: No pleural effusion or pneumothorax. Heart/Mediastinum: Unremarkable. Bones/joints: Prior median sternotomy. XR/XR chest 1V portable [id number] IMPRESSION: No acute pathology or significant interval change.
[2023-04-19] MEDS: aspirin 81 mg Chew Tablet 324 MG PO (13:10)
[2023-04-19 13:20] LABS: Basophils # 0.1 10^3/uL (0.0-0.1); Basophils % 0.7 %; Eosinophils # 0.2 10^3/uL (0.0-0.8); Eosinophils % 3.5 %; Hematocrit 41.4 % (37-53); Lymphocytes # 1.3 10^3/uL (0.8-4.8); Lymphocytes % 19.8 %; Mean Corpuscular HGB Conc 31.6 g/dL (30-55); Mean Corpuscular Hemoglobin 28.3 pg (27-33); Mean Corpuscular Volume 89.4 fl (82-101); Mean Platelet Volume 10.6 fL (7.4-10.4); Monocytes # 0.6 10^3/uL (0.2-0.9); Monocytes % 8.9 %; Neutrophils # 4.51 10^3/uL (1.8-7.7); Neutrophils % 66.7 %; Nucleated Red Blood Cells % 0 %; Platelet Count 159 10^3/cmm (157-399); Red Blood Count 4.63 10^6/uL (3.85-5.65); Red Cell Distribution Width 12.9 % (12.1-15.1); White Blood Count 6.77 10^3/uL (3.29-11.43)
[2023-04-19 13:38] LABS: Alanine Aminotransferase 8 U/L (0-41); Albumin Level 3.9 g/dL (3.5-5.2); Alkaline Phosphatase 81 U/L (40-130); Anion Gap 13.8 (5-19); Aspartate Amino Transferase 12 U/L (0-40); Blood Urea Nitrogen 23 mg/dL (8-23); Calcium 9.1 mg/dL (8.5-10.5); Carbon Dioxide 26 mmol/L (22-29); Chloride 107 mmol/L (98-107); Globulin 2.8 g/dL (1.3-4.6); Glomerular Filtration Rate 59.9 mL/min (90-130); Glucose 146 mg/dL (65-115); Osmolality Calculated 300 mOsm/kg (285-295); Potassium 4.8 mmol/L (3.5-5.1); Sodium 142 mmol/L (136-145); Total Bilirubin 0.4 mg/dL (0.15-1.2); Total Protein 6.7 g/dL (6.6-8.7)
[2023-04-19 13:41] LABS: Troponin(5th) Baseline 21 ng/L (0-15)
--- NOTE | 2023-04-19 14:49 | ECG_ITS ---
[facility] Test Date: 2023-04-19 Pat Name: Junior Andersen Department: Room: Gender: Male Stereoptic Projection Topographer: : 1950 Requested By: Foster Aguilar Order Number: [id number] Carmela MD: Luisito Barajas M.D. Measurements Intervals [place] Rate: 57 P: 114 AL: 133 QRS: 44 QRSD: 141 T: 184 QT: 474 QTc: 465 Interpretive Statements SINUS BRADYCARDIA INTRAVENTRICULAR CONDUCTION DELAY [130+ ms QRS DURATION] Compared to ECG 04/19/2023 12:37:52 Sinus rhythm no longer present Electronically Signed On 04-19-2023 16:50:26 GELATIN DYNAMITE PACKING OPERATOR by Luisito Barajas M.D. [id number]
[2023-04-19 15:04] LABS: Troponin 5 2HR 20.51 ng/L (0-15)
[2023-04-19 15:07] LABS: Troponin 5 2HR Delta -0.49 ABS# (0-10)
--- NOTE | 2023-04-19 17:07 | CTR_ITS ---
PROCEDURE INFORMATION: Exam: CT Head Without Contrast Exam date and time: 04/19/2023 5:17 PM Age: 72 years old Clinical indication: Weakness, extremity; Bilateral TECHNIQUE: Imaging protocol: Computed tomography of the head without contrast. Radiation optimization: All CT scans at this facility use at least one of these dose optimization techniques: automated exposure control; mA and/or kV adjustment per patient size (includes targeted exams where dose is matched to clinical indication); or iterative reconstruction. COMPARISON: CT head wo con* [id number] 05/22/2016 3:37 PM RADIATION DOSE METRICS: Total DLP (mGy-cm): 1123.98 FINDINGS: Brain: Mild areas of low-attenuation in the white matter most likely representing small vessel ischemic change. No evidence of mass effect, intracranial hemorrhage or extra-axial collection. No acute infarct. Cerebral ventricles: Unremarkable for age. Paranasal sinuses: No significant pathology. Mastoid air cells: No significant pathology. Bones/joints: No significant pathology. Soft tissues: No significant pathology. CT/CT head wo con* [id number] IMPRESSION: No acute pathology or significant interval change.
== END 2023-04-19 18:40 | disposition home or self-care (01) ==
PROVIDERS: Emergency Provider Family Medicine; PCP Family Medicine
DX: R07.89 Other chest pain (principal); R20.0 Anesthesia of skin; Z79.02 Long term (current) use of antithrombotics/antiplatelets; Z79.82 Long term (current) use of aspirin; Z79.4 Long term (current) use of insulin; F17.210 Nicotine dependence, cigarettes, uncomplicated; I25.2 Old myocardial infarction; I11.0 Hypertensive heart disease with heart failure; I50.20 Unspecified systolic (congestive) heart failure; J44.9 Chronic obstructive pulmonary disease, unspecified; E11.9 Type 2 diabetes mellitus without complications; I25.10 Atherosclerotic heart disease of native coronary artery without angina pectoris; Z95.1 Presence of aortocoronary bypass graft
CPT/HCPCS: 36415; 70450; 71045; 80053; 84484; 85025; 93005; 99285

== ENCOUNTER 2023-06-09 10:57 | Observation (INO) | payer OTHER, MEDICARE, SELFPAY ==
[2023-06-09] VITALS (9 sets, daily range): BP systolic 96–150; BP diastolic 49–67; PULSE 51–72; RESP 18–28; TEMP 36.4–36.8; O2SAT 94–100
--- NOTE | 2023-06-09 11:16 | XRR_ITS ---
PROCEDURE INFORMATION: Exam: XR Chest Exam date and time: 06/09/2023 11:44 AM Age: 72 years old Clinical indication: Cough and dyspnea; Prior surgery; Surgery date: 6+ months; Surgery type: Heart; Additional info: Dyspnea/cough TECHNIQUE: Imaging protocol: Radiologic exam of the chest. Views: 1 view. COMPARISON: CR XR chest 1V portable [id number] 04/19/2023 1:03 PM FINDINGS: Lungs: No significant active pathology. Pleural spaces: No pleural effusion or pneumothorax. Heart/Mediastinum: Unremarkable. Bones/joints: Prior median sternotomy. XR/XR chest 1V portable [id number] IMPRESSION: No acute pathology or significant interval change.
--- NOTE | 2023-06-09 11:16 | CTR_ITS ---
PROCEDURE INFORMATION: Exam: CT Abdomen And Pelvis With Contrast Exam date and time: 06/09/2023 12:36 PM Age: 72 years old Clinical indication: Abdominal pain; Generalized; Prior surgery; Surgery date: 6+ months; Surgery type: Appy; Additional info: Abd pain TECHNIQUE: Imaging protocol: Computed tomography of the abdomen and pelvis with contrast. Radiation optimization: All CT scans at this facility use at least one of these dose optimization techniques: automated exposure control; mA and/or kV adjustment per patient size (includes targeted exams where dose is matched to clinical indication); or iterative reconstruction. Contrast material: OMNI 350; Contrast volume: 100 ml; Contrast route: INTRAVENOUS (IV); COMPARISON: CT abdomen pelvis w con* [id number] 12/06/2020 7:19 PM RADIATION DOSE METRICS: Total DLP (mGy-cm): 1038.05 FINDINGS: Lungs: Mild basilar scar versus atelectasis. Nonspecific interspersed areas of ground-glass opacity. Coronary arteries: Coronary artery calcifications. Mediastinal space: Mural thickening distal thoracic esophagus. Diaphragm: Small hiatal hernia. Liver: No significant liver pathology. Gallbladder and bile ducts: Prior cholecystectomy. No biliary dilatation. Pancreas: No significant pancreatic pathology. Spleen: No significant splenic pathology. Adrenal glands: No significant adrenal pathology. Kidneys and ureters: There are renal cortical cysts and subcentimeter cortical hypodensities which are indeterminate by criteria but statistically most likely represent cysts. Stomach and bowel: There is increased amount of fluid in small bowel and colon with some small bowel loops dilated up to 3 cm (example left anterolateral abdomen series 3, image 44. There is wall thickening and mild fold thickening in some small bowel loops as well. No discrete transition zone to nonobstructive loops is seen. Appendix: Appendix within normal limits. Intraperitoneal space: Mild perihepatic ascites, new compared to the prior exam. Vasculature: No abdominal aortic aneurysm. Visualized celiac artery and SMA are patent. Lymph nodes: No enlarged nodes by criteria. Urinary bladder: Urinary bladder is nondistended limiting assessment of the wall. Reproductive: No significant prostate pathology. Bones/joints: Prior median sternotomy. Mild degenerative change present in the spine. Soft tissues: Small fat containing left inguinal hernia. CT/CT abdomen pelvis w con* [id number] IMPRESSION: 1. Mildly distended small bowel with increased fluid, wall and fold thickening. Increased colonic fluid without other colonic pathology. Differential diagnosis includes infectious/inflammatory pathology and small bowel ischemia. 2. Mild ascites. 3. Minor findings as above.
--- NOTE | 2023-06-09 11:26 | ED_ITS ---
HPI - Abdominal Pain 2 General: Chief Complaint: Abdominal Pain Stated Complaint: abd pain Time Seen by Provider: 06/09/23 11:16 Source: patient Mode of arrival: ambulatory History of Present Illness: 72-year-old male presents emergency room with complaints of abdominal pain and vomiting with flecks of blood for the last 2 days. He is on clopidogrel. He does not notice anything that makes it better or worse. No hematochezia or melena. No chest pain or associated shortness of breath. MD elicited complaint: abdominal pain Onset (ago): day(s) (2) Pain Consistency: intermittent Location: Epigastric Severity: moderate Quality: cramping Exacerbating factors: nothing Relieving factors: nothing Associated Symptoms: Reports bloating, GI cramping, hematemesis, nausea, poor appetite and vomiting; Denies anorexia, belching, change in bowel habits, change in stool character, chills, coffee ground emesis, constipation, diarrhea, dyspepsia, dysuria, excessive flatus, fever(s), heartburn, hematochezia, hematuria, fecal incontinence, loose stools, melena and syncope Review of Systems 2 Const: Denies: fever(s) or chills Card: Denies: syncope Resp: Denies: dyspnea GI: Reports: nausea, vomiting, hematemesis, bloating and GI cramping; Denies: coffee ground emesis, heartburn, diarrhea, constipation, belching, excessive flatus, fecal incontinence, change in bowel habits, change in stool character, hematochezia or melena : Denies: dysuria or hematuria Musc: Denies: neck pain or back pain Skin/Breast: Denies: rash PFSH ED 2 PFSH: Medical History Tobacco abuse NSTEMI (non-ST elevated myocardial infarction) Systolic CHF with reduced left ventricular function, NYHA class 2 Bilateral carotid artery stenosis Erectile dysfunction Urinary retention Cutaneous wart Current smoker JENAE on CPAP Acute cystitis without hematuria Phimosis BPH NOS w ur obs/LUTS COPD (chronic obstructive pulmonary disease) Hypertension Diabetes Complex partial epilepsy with generalization Myocardial infarct Chronic headache CAD (coronary artery disease) Balanitis Surgical History H/O heart artery stent S/P carotid endarterectomy H/O circumcision History of laparotomy History of appendectomy History of coronary artery bypass graft Family History Mother , at age 103 No problems noted. Father , at age 89 Congestive heart failure (CHF) Other CAD (coronary artery disease) Hypertension Mesothelioma Social History Smoking and tobacco/nicotine status: current every day tobacco/nicotine user cigarettes Packs smoked per day: 1.5 Years cigarettes smoked: 52 [ Other cigarette details: was 2ppd] Alcohol intake: never Substance/Drug Use: never Marital status: service: Yes Current occupational status: retired and disabled Do you think of yourself as: Straight/Heterosexual Physical Exam 2 Const: COMMON NORMALS: no acute distress GENERAL APPEARANCE: cooperative and comfortable ORIENTATION/CONSCIOUSNESS: Yes awake, Yes oriented to person, Yes oriented to place and Yes oriented to time HENMT: COMMON NORMALS: normocephalic, atraumatic and hearing grossly normal bilaterally HEAD & SCALP: normocephalic and atraumatic Resp: COMMON NORMALS: normal respiratory effort, No retractions, No use of accessory muscles and clear to auscultation bilaterally AUSCULTATION: clear to auscultation bilaterally Cardio: COMMON NORMALS: regular rate, regular rhythm and No murmurs present (Cardio) RATE: regular rate RHYTHM: regular rhythm GI: COMMON NORMALS: No hepatosplenomegaly present AUSCULTATION: Yes normoactive bowel sounds PALPATION: Yes Tenderness to palpation present (GI) (Epigastric right upper quadrant ), No Guarding due to palpation present (GI) and Yes No hepatosplenomegaly present Extremity: COMMON NORMALS: normal to inspection, capillary refill normal, no clubbing, cyanosis or edema, no calf tenderness and no pedal edema Neuro: SENSORIUM/ORIENTATION: Yes oriented to person, Yes oriented to place and Yes oriented to time Skin: COMMON NORMALS: no rashes or lesions noted GENERAL SKIN EXAM: no rashes or lesions noted Course 2 Vital Signs: Vital signs: Vital Signs Temperature 97.6 F 06/09/23 10:58 Pulse Rate 71 06/09/23 11:34 Respiratory Rate 28 H 06/09/23 11:34 Blood Pressure 128/66 06/09/23 11:34 Pulse Oximetry 95 06/09/23 11:34 Oxygen Delivery Me thod Room Air 06/09/23 11:34 MDM - Abdominal Pain Medical Decision Making CT shows section of colon that is inflamed. On the differential radiology states ischemia could be a possible cause however when I discussed with radiologist she states on the CT done with contrast to celiac and SMA are both widely patent proximally. He had a stent placed in November 2022. He really cannot be off of his Plavix at this point given that we will observe. Started on Protonix also started on Cipro and Flagyl discussed Dr. borden consult Dr. Mckenzie. Medical Records I reviewed the patient's medical records. Lab Data I reviewed the patient's lab results. 06/09/23 11:30 06/09/23 11:30 Labs/Radiology: Radiology Impressions Abdomen/Pelvis CT 06/09/23 11:16 IMPRESSION: 1. Mildly distended small bowel with increased fluid, wall and fold thickening. Increased colonic fluid without other colonic pathology. Differential diagnosis includes infectious/inflammatory pathology and small bowel ischemia. 2. Mild ascites. 3. Minor findings as above. ADDENDUM: 06/09/23 1301 THIS REPORT CONTAINS FINDINGS THAT MAY BE CRITICAL TO PATIENT CARE. The findings were verbally communicated via telephone conference with FOSTER CASTILLO at 1:00 PM HEATER INSTALLER on 06/09/2023. The findings were acknowledged and understood. Chest X-Ray 06/09/23 11:16 IMPRESSION: No acute pathology or significant interval change. Laboratory Results WBC 11.72 10^3/uL (3.29-11.43) H 06/09/23 11:30 RBC 4.65 10^6/uL (3.85-5.65) 06/09/23 11:30 Hgb 13.40 g/dL (11.27-16.99) 06/09/23 11:30 Hct 41.1 % (37-53) 06/09/23 11:30 MCV 88.4 fl (82-101) 06/09/23 11:30 MCH 28.8 pg (27-33) 06/09/23 11:30 MCHC 32.6 g/dL (30-55) 06/09/23 11:30 RDW 13.2 % (12.1-15.1) 06/09/23 11:30 Plt Count 149 10^3/cmm (157-399) L 06/09/23 11:30 MPV 10.3 fL (7.4-10.4) 06/09/23 11:30 Neut % (Auto) 79.0 % 06/09/23 11:30 Lymph % (Auto) 10.0 % 06/09/23 11:30 [place] % (Auto) 9.1 % 06/09/23 11:30 Eos % (Auto) 1.3 % 06/09/23 11:30 Baso % (Auto) 0.3 % 06/09/23 11:30 Neut # (Auto) 9.26 10^3/uL (1.8-7.7) H 06/09/23 11:30 Lymph # (Auto) 1.2 10^3/uL (0.8-4.8) 06/09/23 11:30 [place] # (Auto) 1.1 10^3/uL (0.2-0.9) H 06/09/23 11:30 Eos # (Auto) 0.2 10^3/uL (0.0-0.8) 06/09/23 11:30 Baso # (Auto) 0.0 10^3/uL (0.0-0.1) 06/09/23 11:30 Nucleated RBC % (auto) 0 % 06/09/23 11:30 Nucleated RBCs # 0.0 /100WBC 06/09/23 11:30 Sodium 137 mmol/L (136-145) 06/09/23 11:30 Potassium 4.8 mmol/L (3.5-5.1) 06/09/23 11:30 Chloride 104 mmol/L (98-107) 06/09/23 11:30 Carbon Dioxide 22 mmol/L (22-29) 06/09/23 11:30 Anion Gap 15.8 (5-19) 06/09/23 11:30 BUN 24 mg/dL (8-23) H 06/09/23 11:30 Creatinine 1.4 mg/dL (0.7-1.2) H 06/09/23 11:30 GFR Calculation 50.1 mL/min (90-130) L 06/09/23 11:30 Glucose 187 mg/dL (65-115) H 06/09/23 11:30 Calculated Osmolality 293 mOsm/kg (285-295) 06/09/23 11:30 Lactic Acid 1.3 mmol/L (0.5-2.2) 06/09/23 11:30 Calcium 8.7 mg/dL (8.5-10.5) 06/09/23 11:30 Total Bilirubin 1.2 mg/dL (0.15-1.2) 06/09/23 11:30 AST 13 U/L (0-40) 06/09/23 11:30 ALT 9 U/L (0-41) 06/09/23 11:30 Alkaline Phosphatase 87 U/L (40-130) 06/09/23 11:30 Troponin T Baseline 23 ng/L (0-15) H 06/09/23 11:30 Troponin T 120 Minute 21.95 ng/L (0-15) H 06/09/23 13:01 Delta Troponin T -1.05 ABS# (0-10) L 06/09/23 13:01 Total Protein 6.8 g/dL (6.6-8.7) 06/09/23 11:30 Albumin 4.1 g/dL (3.5-5.2) 06/09/23 11:30 Globulin 2.7 g/dL (1.3-4.6) 06/09/23 11:30 Lipase 19 U/L (13-60) 06/09/23 11:30 All radiology interpretation(s) finalized by discharge Discharge Plan Discharge Patient Disposition: Placed in Observation Admit Provider: Junior Anders Clinical Impression: Acute upper gastrointestinal bleeding, Presence of stent in coronary artery in patient with coronary artery disease Condition: Stable Coding Level of Care Code ED Senior Regulatory Affairs Specialist for Selin Murillo
[2023-06-09] MEDS: ondansetron 2 mg/ML SDV 2 mL 4 MG IVP (11:31)
[2023-06-09 11:39] LABS: Basophils % 0.3 %; Eosinophils # 0.2 10^3/uL (0.0-0.8); Eosinophils % 1.3 %; Hematocrit 41.1 % (37-53); Lymphocytes # 1.2 10^3/uL (0.8-4.8); Mean Corpuscular HGB Conc 32.6 g/dL (30-55); Mean Corpuscular Hemoglobin 28.8 pg (27-33); Mean Corpuscular Volume 88.4 fl (82-101); Mean Platelet Volume 10.3 fL (7.4-10.4); Monocytes # 1.1 10^3/uL (0.2-0.9); Monocytes % 9.1 %; Neutrophils # 9.26 10^3/uL (1.8-7.7); Nucleated Red Blood Cells % 0 %; Platelet Count 149 10^3/cmm (157-399); Red Blood Count 4.65 10^6/uL (3.85-5.65); Red Cell Distribution Width 13.2 % (12.1-15.1); White Blood Count 11.72 10^3/uL (3.29-11.43)
--- NOTE | 2023-06-09 11:43 | ECG_ITS ---
[facility] Test Date: 2023-06-09 Pat Name: Junior Andersen Department: Room: Gender: Male Credit Review Analyst: : 1950 Requested By: Foster Aguilar Order Number: [id number] Carmela MD: Luisito Barajas M.D. Measurements Intervals [place] Rate: 70 P: 87 [place]: 128 QRS: 29 QRSD: 129 T: 192 QT: 408 QTc: 442 Interpretive Statements SINUS RHYTHM MODERATE INTRAVENTRICULAR CONDUCTION DELAY [110+ ms QRS DURATION] ST DEVIATION AND MODERATE T-WAVE ABNORMALITY, CONSIDER LATERAL ISCHEMIA [-0.1+ mV T-WAVE IN I/aVL/V5/V6] ST DEVIATION AND MODERATE T-WAVE ABNORMALITY, CONSIDER INFERIOR ISCHEMIA [-0.1+ mV T-WAVE IN II/aVF] Compared to ECG 04/19/2023 15:15:21 T-wave abnormality now present Possible ischemia now present Sinus bradycardia no longer present Electronically Signed On 06-09-2023 20:59:28 MOBILE DEVELOPMENT MANAGER by Luisito Barajas M.D. [id number]
[2023-06-09 11:58] LABS: Troponin(5th) Baseline 23 ng/L (0-15)
[2023-06-09 12:05] LABS: Alanine Aminotransferase 9 U/L (0-41); Albumin Level 4.1 g/dL (3.5-5.2); Alkaline Phosphatase 87 U/L (40-130); Anion Gap 15.8 (5-19); Aspartate Amino Transferase 13 U/L (0-40); Blood Urea Nitrogen 24 mg/dL (8-23); Calcium 8.7 mg/dL (8.5-10.5); Carbon Dioxide 22 mmol/L (22-29); Chloride 104 mmol/L (98-107); Globulin 2.7 g/dL (1.3-4.6); Glomerular Filtration Rate 50.1 mL/min (90-130); Glucose 187 mg/dL (65-115); Lipase 19 U/L (13-60); Osmolality Calculated 293 mOsm/kg (285-295); Potassium 4.8 mmol/L (3.5-5.1); Sodium 137 mmol/L (136-145); Total Bilirubin 1.2 mg/dL (0.15-1.2); Total Protein 6.8 g/dL (6.6-8.7)
[2023-06-09 12:06] LABS: Creatinine Clr Calc Pharmacy 61.6144
[2023-06-09] MEDS: iohexol 350 mg/mL 500 mL Btl (per mL) IV (12:40)
[2023-06-09] MEDS: pantoprazole 40 mg SDV 80 MG IVP (13:09)
--- NOTE | 2023-06-09 13:17 | ECG_ITS ---
[facility] Test Date: 2023-06-09 Pat Name: Junior Andersen Department: Room: Gender: Male Whiskey Filterer: : 1950 Requested By: Foster Aguilar Order Number: [id number] Carmela MD: Luisito Barajas M.D. Measurements Intervals [place] Rate: 55 P: 106 [place]: 136 QRS: 28 QRSD: 138 T: 183 QT: 446 QTc: 427 Interpretive Statements SINUS BRADYCARDIA INTRAVENTRICULAR CONDUCTION DELAY [130+ ms QRS DURATION] Compared to ECG 06/09/2023 11:43:41 Sinus rhythm no longer present T-wave abnormality no longer present Possible ischemia no longer present Electronically Signed On 06-09-2023 21:04:02 INSURANCE UNDERWRITER SALES by Luisito Barajas M.D. [id number]
[2023-06-09 13:21] LABS: Lactic Sepsis W/Reflex 1.3 mmol/L (0.5-2.2)
[2023-06-09 13:23] LABS: Troponin 5 2HR 21.95 ng/L (0-15)
[2023-06-09 13:28] LABS: Troponin 5 2HR Delta -1.05 ABS# (0-10)
[2023-06-09] MEDS: ciprofloxacin 400 MG/200 ML PREMIX 200 MG IV (13:39)
[2023-06-09 13:54] LABS: Bilirubin Urine Neg (Negative); Blood Urine Neg (Negative); Glucose Urine UA Norm (Normal); Ketones Urine Negative (Negative); Nitrate Urine Negative (Negative); Protein Urine 1+ (Negative); Specific Gravity, Urine 1.005 (1.005-1.030); Urine Appearance Clear (CLEAR); Urine Color Yellow (Yellow); pH Urine 5 (5-7)
[2023-06-09 13:55] LABS: Add Urine Culture? No; Add Urine Microscopic? YES; Bacteria Urine TRACE /hpf; Leukocyte Esterase Urine Trace (Negative); Squamous Epithelial Cell Urine 0-4 /hpf (0-5); Urobilinogen Urine 4 mg/dL (Negative); WBC Urine 0-4 /hpf (0-5)
--- NOTE | 2023-06-09 14:00 | PM.HP ---
Providers/Chief Complaint Admitting Physician: Junior Anders MD Primary Care Provider: Portia Lawrence MD Chief Complaint: abd pain History of Present Illness Junior Andersen is a 72 year old male with past medical history significant for coronary artery disease status post CABG in 2004 and multiple PCI/stents (most recent in 12/2022), carotid artery stenosis status post bilateral endarterectomy, epilepsy, COPD, type 2 diabetes mellitus, hypertension, and chronic systolic heart failure with reduced ejection fraction who presents emergency department with abdominal pain x 2 to 3 days. He endorses associated symptoms of abdominal discomfort and hematemesis last night. He states he feels like he was a moderate amount of hematemesis. Endorses associated nausea. Denies aggravating or alleviating factors. In the emergency department, he was found to have mild leukocytosis and azotemia. CT scanning revealed mildly distended small bowel with increased fluid with findings concerning for infectious/inflammatory pathology versus small bowel ischemia. ED provider reportedly talked to radiologist with ischemia being low on differential. His lactate was normal. General surgery was consulted due to reported hematemesis. He is on aspirin 325 mg and Plavix. Review of Systems Narrative: A complete review of systems was obtained and is negative except as stated in HPI. Medications/Allergies Home Medications Medication Instructions Recorded Confirmed Last Taken Type topiramate 50 mg tablet (Topamax) 50 mg PO BID #60 tabs 07/07/19 06/09/23 06/09/23 Rx tamsulosin 0.4 mg capsule 0.4 mg PO QPM BPH 12/06/20 06/09/23 06/08/23 History metoprolol succinate 50 mg 50 mg PO BID #180 tabs 09/21/22 06/09/23 06/09/23 Rx tablet,extended release 24 hr cholecalciferol (vitamin D3) 25 25 mcg PO TID 12/13/22 06/09/23 06/09/23 History mcg (1,000 unit) tablet (Vitamin D3) fluticasone 250 mcg-salmeterol 50 1 inh inhalation BID 12/13/22 06/09/23 06/09/23 History mcg/dose blistr powdr for inhalation (Advair Diskus) gabapentin 400 mg capsule 400 mg PO TID 12/13/22 06/09/23 06/09/23 History glucose 4 gram chewable tablet 4 - 16 g PO Q15M PRN Hypoglycemia 12/13/22 06/09/23 Unknown History lidocaine 5 % topical ointment 1 applic topical BID PRN Pain 12/13/22 06/09/23 Unknown History lisinopril 20 mg tablet 10 mg PO QAM 12/13/22 06/09/23 06/09/23 History melatonin 5 mg tablet 5 mg PO BEDTIME 12/13/22 06/09/23 06/08/23 History omega 7-qzl-viv-fish oil 1,000 mg 1 cap PO BID 12/13/22 06/09/23 06/09/23 History (120 mg-180 mg) capsule (Fish Oil) polyethylene glycol 3350 17 17 g PO BID PRN Constipation 12/13/22 06/09/23 Unknown History gram/dose oral powder (Miralax) potassium chloride 20 mEq 10 meq PO QAM 12/13/22 06/09/23 06/09/23 History tablet,extended release sennosides 8.6 mg-docusate sodium 1 tab PO BID 12/13/22 06/09/23 Unknown History 50 mg tablet (Senexon-S) nitroglycerin 0.4 mg sublingual 0.4 mg sublingual Q5M PRN chest 02/25/23 06/09/23 Unknown Rx tablet pain #30 tabs aspirin 325 mg tablet 325 mg PO QAM 04/19/23 06/09/23 06/09/23 History clopidogrel 75 mg tablet 75 mg PO QAM 04/19/23 06/09/23 06/09/23 History folic acid 400 mcg tablet 400 mcg PO DAILY 04/19/23 06/09/23 06/09/23 History furosemide 20 mg tablet 20 mg PO QAM 04/19/23 06/09/23 06/09/23 History insulin glargine 100 unit/mL (3 100 unit SUBCUT BEDTIME PRN BLOOD 04/19/23 06/09/23 06/08/23 History mL) subcutaneous pen SUGAR ipratropium 20 mcg-albuterol 100 1 puff inhalation QID 04/19/23 06/09/23 06/09/23 History mcg/actuation mist for inhalation rosuvastatin 40 mg tablet 40 mg PO QPM 04/19/23 06/09/23 06/08/23 History ascorbic acid (vitamin C) 500 mg 500 mg PO BID 06/09/23 06/09/23 06/09/23 History tablet (Vitamin C) insulin regular human 100 unit/mL 20 unit SUBCUT TID 06/09/23 06/09/23 06/09/23 History (3 mL) subcutaneous pen Allergies Allergy/AdvReac Type Severity Reaction Status Date / Time adhesive tape Allergy ALGY-Rash Verified 06/09/23 11:04 PFSH Acute PFSH: Medical History Tobacco abuse NSTEMI (non-ST elevated myocardial infarction) Systolic CHF with reduced left ventricular function, NYHA class 2 Bilateral carotid artery stenosis Erectile dysfunction Urinary retention Cutaneous wart Current smoker JENAE on CPAP Acute cystitis without hematuria Phimosis BPH NOS w ur obs/LUTS COPD (chronic obstructive pulmonary disease) Hypertension Diabetes Complex partial epilepsy with generalization Myocardial infarct Chronic headache CAD (coronary artery disease) Balanitis Surgical History H/O heart artery stent S/P carotid endarterectomy H/O circumcision History of laparotomy History of appendectomy History of coronary artery bypass graft Family History Mother , at age 103 No problems noted. Father , at age 89 Congestive heart failure (CHF) Other CAD (coronary artery disease) Hypertension Mesothelioma Social History Smoking and tobacco/nicotine status: current every day tobacco/nicotine user cigarettes Packs smoked per day: 1.5 Years cigarettes smoked: 52 [ Other cigarette details: was 2ppd] Alcohol intake: never Substance/Drug Use: never Marital status: service: Yes Current occupational status: retired and disabled Do you think of yourself as: Straight/Heterosexual Vitals/I&O/Wt Last Vital Signs Temp 97.6 F 06/09/23 10:58 Pulse 71 06/09/23 11:34 Resp 28 H 06/09/23 11:34 BP 128/66 06/09/23 11:34 Pulse Ox 95 06/09/23 11:34 O2 Del Method Room Air 06/09/23 11:34 Weight last 48 hrs Weight 108.862 kg Physical Exam Narrative: General: Patient is awake and alert. Pleasant. Head: Normocephalic. Atraumatic. EOM intact. Neck: No JVD. Cardiovascular: RRR. No gallops. No murmurs. Lungs: Breath sounds are manage bilateral bases, no use of accessory muscles, no crackles or wheezes. Skin: No jaundice. No rashes. Abdomen: Bowel sounds are present. Abdomen is distended. Very mild tenderness palpation in all 4 quadrants. Genito Urinary: Genital exam not performed since complaints not related. Rectal: Rectal exam not performed since no symptoms indicated blood loss. Extremities: No cyanosis or clubbing. Musculoskeletal: No swollen or erythematous joints. Neurological: Moves all 4 extremities. No myoclonus. Data 06/09/23 11:30 06/09/23 11:30 A&P Assessment and plan (1) Acute upper gastrointestinal bleeding: Abdominal pain with hematemesis concerning for upper GI bleed Start IV PPI Start schedule Carafate Hold aspirin 325 mg daily Will leave Plavix ordered, next dose at 9 AM, if he decompensates this should be held Avoid NSAIDs or anticoagulation Trend H&H N.p.o. except for meds, sips of water, ice chips General surgery's been consulted, appreciate further recommendations (2) Abdominal pain: CT scan reviewed, with small bowel inflammation, concerning for enteritis Start broad-spectrum antibiotics with Cipro/Flagyl, QTc 427 Transfer text Supportive care (3) CAD (coronary artery disease): Continue Plavix Hold aspirin Hold metoprolol as heart rate is currently around 60, may be able to restart pending clinical course Continue statin Qualifiers: Coronary Disease-Associated Artery/Lesion type: unspecified vessel or lesion type [place] vs. transplanted heart: [place] heart Associated angina: angina presence unspecified Qualified Code(s): I25.10 - Atherosclerotic heart disease of [place] coronary artery without angina pectoris (4) COPD (chronic obstructive pulmonary disease): Not in acute exacerbation Breathing treatments as needed Qualifiers: COPD type: unspecified COPD Qualified Code(s): J44.9 - Chronic obstructive pulmonary disease, unspecified (5) Diabetes: On moderately high insulin doses as outpatient Glucose is currently less than 200 He is n.p.o. but still at high risk for stress-induced hyperglycemia Will use sliding scale for now, will need titrated as hospital course continues (6) Hypertension: Blood pressure currently normal Hold lisinopril given GI bleed Hold metoprolol given normal heart rate and GI bleed (7) Systolic CHF with reduced left ventricular function, NYHA class 2: Currently on IV fluids around 1 mL/kg body weight Avoid fluid overload with daily assessments Monitor labs Holding Lasix Supportive care Plan DVT prophylaxis: SCD CODE STATUS: Full code Attestations Medical Necessity Statement*: Patient presents with abdominal pain/hematemesis with CT scan concerning for infection with expected hospitalization not to cross 2 midnights for PPI treatment, Carafate, hemoglobin trending, IV antibiotics, and supportive care. Coding Level of Care Code Acute Code for [facility] Fwd Diagnoses Acute upper gastrointestinal bleeding K92.2 Abdominal pain R10.9 Coronary artery disease involving [place] heart, angina presence unspecified, unspecified vessel or lesion type I25.10 Coronary Disease-Associated Artery/Lesion type: unspecified vessel or lesion type [place] vs. transplanted heart: [place] heart Associated angina: angina presence unspecified Chronic obstructive pulmonary disease, unspecified COPD type J44.9 COPD type: unspecified COPD Diabetes E11.9 Hypertension I10 Systolic CHF with reduced left ventricular function, NYHA class 2 I50.20
[2023-06-09] MEDS: metroNIDAZOLE IV 500 MG/100 ML PREMIX 100 MG IV ×2 (15:03→22:11)
[2023-06-09 16:04] LABS: Procalcitonin 0.11 ng/mL (0-0.5)
[2023-06-09 16:34] LABS: Glucose Point of Care 132 mg/dL (70-110)
[2023-06-09] MEDS: sodium chloride 0.9% 1,000 ML 100 ML IV (16:59)
[2023-06-09] MEDS: sucralfate 1 gm Tablet PO ×2 (17:00→21:03)
[2023-06-09] MEDS: atorvastatin 40 mg Tablet 80 MG PO (17:00)
[2023-06-09] MEDS: ipratropium-albuterol 3 mL Neb INHALATION ×2 (17:02→20:33)
--- NOTE | 2023-06-09 17:17 | ECG_ITS ---
[facility] Test Date: 2023-06-09 Pat Name: Junior Andersen Department: Room: 103 Gender: Male Kindergartner: : 1950 Requested By: Foster Aguilar Order Number: [id number] Carmela MD: Luisito Barajas M.D. Measurements Intervals [place] Rate: 51 P: 81 [place]: 128 QRS: 24 QRSD: 114 T: 173 QT: 440 QTc: 409 Interpretive Statements SINUS BRADYCARDIA MODERATE INTRAVENTRICULAR CONDUCTION DELAY [105+ ms QRS DURATION, 80+ ms Q/S IN V1/V2, NO Q AND 60+ ms R IN I/aVL/V5/V6] ST DEVIATION AND MODERATE T-WAVE ABNORMALITY, CONSIDER LATERAL ISCHEMIA [-0.1+ mV T-WAVE IN I/aVL/V5/V6] Compared to ECG 06/09/2023 13:19:29 T-wave abnormality now present Possible ischemia now present Electronically Signed On 06-09-2023 21:04:21 YARD PERSON by Luisito Barajas M.D. [id number]
[2023-06-09] MEDS: tamsulosin 0.4 mg Capsule 0.400000000000000022 MG PO (17:54)
[2023-06-09] MEDS: topiramate 100 mg Tablet 50 MG PO (17:54)
[2023-06-09 18:06] LABS: Troponin 5 6HR 23.92 ng/L (0-15); Troponin 5 6HR Delta 0.92 ng/L (0-12)
--- NOTE | 2023-06-09 18:16 | P.CONIM_ITS ---
Providers/Reason For Consult 2 Consulting Physician/Specialty*: Dr. Ge Mckenzie, DO/General surgery Reason for Consult*: Abdominal pain and hematemesis Attending Physician: Junior Anders MD Primary Care Provider: Portia Lawrence MD History of Present Illness History of Present Illness Junior Andersen is a 72 year old male who is a cardiac patient on aspirin and Plavix, who presented to the hospital with a 2 to 3-day history of abdominal pain and hematemesis. He reports that his abdominal pain is along his left and right sides of his abdomen and radiates up to his epigastrium. Movement and palpation make the pain worse. Nothing seems to make the pain better. Eating does not seem to make the pain worse. Over the last 24 hours he had multiple episodes of bright red blood in his emesis. He denies any bloody or black stools. Reports that he is having normal bowel movements. CT abdomen pelvis shows some mild thickening of the small bowel Review of Systems 2 General: Reports: 10 or more systems reviewed and unremarkable except in HPI and below Medications/Allergies Home Medications Medication Instructions Recorded Confirmed Last Taken Type topiramate 50 mg tablet (Topamax) 50 mg PO BID #60 tabs 07/07/19 06/09/23 06/09/23 Rx tamsulosin 0.4 mg capsule 0.4 mg PO QPM BPH 12/06/20 06/09/23 06/08/23 History metoprolol succinate 50 mg 50 mg PO BID #180 tabs 09/21/22 06/09/23 06/09/23 Rx tablet,extended release 24 hr cholecalciferol (vitamin D3) 25 25 mcg PO TID 12/13/22 06/09/23 06/09/23 History mcg (1,000 unit) tablet (Vitamin D3) fluticasone 250 mcg-salmeterol 50 1 inh inhalation BID 12/13/22 06/09/23 06/09/23 History mcg/dose blistr powdr for inhalation (Advair Diskus) gabapentin 400 mg capsule 400 mg PO TID 12/13/22 06/09/23 06/09/23 History glucose 4 gram chewable tablet 4 - 16 g PO Q15M PRN Hypoglycemia 12/13/22 06/09/23 Unknown History lidocaine 5 % topical ointment 1 applic topical BID PRN Pain 12/13/22 06/09/23 Unknown History lisinopril 20 mg tablet 10 mg PO QAM 12/13/22 06/09/23 06/09/23 History melatonin 5 mg tablet 5 mg PO BEDTIME 12/13/22 06/09/23 06/08/23 History omega 7-zcg-wfz-fish oil 1,000 mg 1 cap PO BID 12/13/22 06/09/23 06/09/23 History (120 mg-180 mg) capsule (Fish Oil) polyethylene glycol 3350 17 17 g PO BID PRN Constipation 12/13/22 06/09/23 Unknown History gram/dose oral powder (Miralax) potassium chloride 20 mEq 10 meq PO QAM 12/13/22 06/09/23 06/09/23 History tablet,extended release sennosides 8.6 mg-docusate sodium 1 tab PO BID 12/13/22 06/09/23 Unknown History 50 mg tablet (Senexon-S) nitroglycerin 0.4 mg sublingual 0.4 mg sublingual Q5M PRN chest 02/25/23 06/09/23 Unknown Rx tablet pain #30 tabs aspirin 325 mg tablet 325 mg PO QAM 04/19/23 06/09/23 06/09/23 History clopidogrel 75 mg tablet 75 mg PO QAM 04/19/23 06/09/23 06/09/23 History folic acid 400 mcg tablet 400 mcg PO DAILY 04/19/23 06/09/23 06/09/23 History furosemide 20 mg tablet 20 mg PO QAM 04/19/23 06/09/23 06/09/23 History insulin glargine 100 unit/mL (3 100 unit SUBCUT BEDTIME PRN BLOOD 04/19/23 06/09/23 06/08/23 History mL) subcutaneous pen SUGAR ipratropium 20 mcg-albuterol 100 1 puff inhalation QID 04/19/23 06/09/23 06/09/23 History mcg/actuation mist for inhalation rosuvastatin 40 mg tablet 40 mg PO QPM 04/19/23 06/09/23 06/08/23 History ascorbic acid (vitamin C) 500 mg 500 mg PO BID 06/09/23 06/09/23 06/09/23 History tablet (Vitamin C) insulin regular human 100 unit/mL 20 unit SUBCUT TID 06/09/23 06/09/23 06/09/23 History (3 mL) subcutaneous pen Allergies Allergy/AdvReac Type Severity Reaction Status Date / Time adhesive tape Allergy ALGY-Rash Verified 06/09/23 11:04 Current Medications Generic Name Dose Route Start Last Admin Trade Name Freq PRN Reason Stop Dose Admin Albuterol/Ipratropium 3 ml 06/09/23 16:00 06/09/23 17:02 Ipratropium-Albuterol 3 Ml Neb INHALATION 3 ml QID.RESPIRATORY TORSTEN Administration Atorvastatin Calcium 80 mg 06/09/23 18:00 06/09/23 17:00 Atorvastatin 40 Mg Tablet PO 80 mg QPM TORSTEN Administration Sodium Chloride 1,000 mls @ 100 mls/hr 06/09/23 15:31 06/09/23 16:59 Sodium Chloride 0.9% IV 100 mls/hr .Q10H TORSTEN Administration Insulin Human Lispro 0 unit 06/09/23 18:00 06/09/23 17:07 Insulin Lispro 100 Unit/1 Ml SUBCUT Not Given WM&BEDTIME TORSTEN Protocol Senna/Docusate Sodium 1 tab 06/09/23 18:00 06/09/23 17:08 Sennosides-Docusate Tablet PO Not Given BID TORSTEN Sucralfate 1 gm 06/09/23 17:00 06/09/23 17:00 Sucralfate 1 Gm Tablet PO 1 gm AC&BEDTIME TORSTEN Administration Tamsulosin HCl 0.4 mg 06/09/23 18:00 06/09/23 17:54 Tamsulosin 0.4 Mg Capsule PO 0.4 mg QPM TORSTEN Administration Topiramate 50 mg 06/09/23 18:00 06/09/23 17:54 Topiramate 100 Mg Tablet PO 50 mg BID TORSTEN Administration PFSH Acute 2 PFSH: Medical History Tobacco abuse NSTEMI (non-ST elevated myocardial infarction) Systolic CHF with reduced left ventricular function, NYHA class 2 Bilateral carotid artery stenosis Erectile dysfunction Urinary retention Cutaneous wart Current smoker JENAE on CPAP Acute cystitis without hematuria Phimosis BPH NOS w ur obs/LUTS COPD (chronic obstructive pulmonary disease) Hypertension Diabetes Complex partial epilepsy with generalization Myocardial infarct Chronic headache CAD (coronary artery disease) Balanitis Surgical History H/O heart artery stent S/P carotid endarterectomy H/O circumcision History of laparotomy History of appendectomy History of coronary artery bypass graft Family History Mother , at age 103 No problems noted. Father , at age 89 Congestive heart failure (CHF) Other CAD (coronary artery disease) Hypertension Mesothelioma Social History Smoking and tobacco/nicotine status: current every day tobacco/nicotine user cigarettes Packs smoked per day: 1.5 Years cigarettes smoked: 52 [ Other cigarette details: was 2ppd] Alcohol intake: never Substance/Drug Use: never Marital status: service: Yes Current occupational status: retired and disabled Do you think of yourself as: Straight/Heterosexual Vitals/I&O/Wt Last Vital Signs Temp 97.6 F 06/09/23 10:58 Pulse 51 L 06/09/23 17:06 Resp 18 06/09/23 17:06 BP 122/53 06/09/23 16:00 Pulse Ox 100 06/09/23 17:06 O2 Del Method Room Air 06/09/23 17:06 06/09/23 06/09/23 06/09/23 06:59 14:59 22:59 Intake Total 300 / 300 Balance 300 / 300 Weight last 48 hrs Weight 240 lb Physical Exam 2 Narrative: General : Patient is well developed , no acute distress, oriented x3 Head : Normal cephalic, a-traumatic. Ears : Pinnae and external canal are normal. Hearing is normal. Eyes : PERRLA, Sclera and injection are normal. No conjunctival discharge. Nose : Mucous membranes are without erythema. Throat : buccal mucosa is normal, gums are without significant recession or hypertrophy. Lungs : Equal chest rise bilaterally, no use of accessory muscles, trachea is midline. Cor : Rate and rhythm are normal. Abdomen : Soft, ND, tender to palpation over epigastrium no g/r/m Extremities : No edema, no cyanosis or clubbing, dorsalis pedis pulses are present bilaterally, non-tender to palpation of calves. Upper extremities are normal bilaterally. Back : non-tender to palpation, no CVA tenderness. Neuro : CN II - XII intact, Upper and lower extremities have equal and full strength Data 06/09/23 11:30 06/09/23 11:30 A&P Assessment and plan (1) Acute upper gastrointestinal bleeding: (2) Abdominal pain: Plan Continue IV Protonix and p.o. sucralfate He may have a diet tonight and then n.p.o. after midnight for EGD tomorrow afternoon The risks and benefits of the procedure, including bleeding, infection, intestinal perforation requiring surgery, missed lesion were explained to the patient. The patient is understanding of the risks and wishes to proceed. Medical management per primary Coding Level of Care Code 84109 Diagnoses Acute upper gastrointestinal bleeding K92.2 Abdominal pain R10.9
[2023-06-09 20:00] LABS: Glucose Point of Care 168 mg/dL (70-110)
[2023-06-09] MEDS: budesonide 0.5 mg/2 mL Neb INHALATION (20:33)
[2023-06-09] MEDS: pantoprazole 40 mg SDV IVP (21:04)
[2023-06-09] MEDS: gabapentin 400 mg Capsule PO (21:04)
[2023-06-09] MEDS: morphine 4 mg/mL SDV 1 mL 2 MG IVP (21:11)
[2023-06-10] VITALS (28 sets, daily range): BP systolic 95–136; BP diastolic 39–57; PULSE 46–85; RESP 13–28; TEMP 36.4–36.9; O2SAT 93–99
[2023-06-10 00:55] LABS: Hematocrit 34.5 % (37-53)
[2023-06-10] MEDS: diphenhydrAMINE 50 mg Capsule PO (01:40)
[2023-06-10] MEDS: ciprofloxacin 200 MG/100 ML PREMIX 100 MG IV ×2 (01:41→14:44)
[2023-06-10] MEDS: sodium chloride 0.9% 1,000 ML 100 ML IV ×2 (01:41→09:35)
[2023-06-10] MEDS: morphine 4 mg/mL SDV 1 mL 2 MG IVP ×3 (02:27→21:40)
[2023-06-10 04:30] LABS: Basophils % 0.5 %; Eosinophils # 0.2 10^3/uL (0.0-0.8); Eosinophils % 2.9 %; Hematocrit 34.2 % (37-53); Lymphocytes # 1.4 10^3/uL (0.8-4.8); Lymphocytes % 18.8 %; Mean Corpuscular HGB Conc 31.3 g/dL (30-55); Mean Corpuscular Hemoglobin 28.2 pg (27-33); Mean Corpuscular Volume 90.2 fl (82-101); Mean Platelet Volume 10.6 fL (7.4-10.4); Monocytes % 12.8 %; Neutrophils # 4.98 10^3/uL (1.8-7.7); Neutrophils % 64.7 %; Nucleated Red Blood Cells % 0 %; Platelet Count 121 10^3/cmm (157-399); Red Blood Count 3.79 10^6/uL (3.85-5.65); Red Cell Distribution Width 13.5 % (12.1-15.1); White Blood Count 7.68 10^3/uL (3.29-11.43)
[2023-06-10 04:47] LABS: Alanine Aminotransferase 6 U/L (0-41); Albumin Level 3.4 g/dL (3.5-5.2); Alkaline Phosphatase 69 U/L (40-130); Anion Gap 10.4 (5-19); Aspartate Amino Transferase 11 U/L (0-40); Blood Urea Nitrogen 32 mg/dL (8-23); Calcium 8.2 mg/dL (8.5-10.5); Carbon Dioxide 24 mmol/L (22-29); Chloride 108 mmol/L (98-107); Creatinine Clr Calc Pharmacy 43.1301; Globulin 2.6 g/dL (1.3-4.6); Glomerular Filtration Rate 33.2 mL/min (90-130); Glucose 182 mg/dL (65-115); Magnesium 2.2 mg/dL (1.7-2.3); Osmolality Calculated 298 mOsm/kg (285-295); Phosphorus 3.4 mg/dL (2.5-4.5); Potassium 4.4 mmol/L (3.5-5.1); Sodium 138 mmol/L (136-145); Total Bilirubin 0.6 mg/dL (0.15-1.2)
[2023-06-10] MEDS: metroNIDAZOLE IV 500 MG/100 ML PREMIX 100 MG IV ×3 (06:02→22:51)
[2023-06-10 06:40] LABS: Glucose Point of Care 181 mg/dL (70-110)
--- NOTE | 2023-06-10 06:50 | ECG_ITS ---
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 Measurements Intervals [place] Rate: 58 P: 94 MS: 149 QRS: 53 QRSD: 133 T: 164 QT: 462 QTc: 454 Interpretive Statements SINUS BRADYCARDIA WITH SINUS ARRHYTHMIA INTRAVENTRICULAR CONDUCTION DELAY [130+ ms QRS DURATION] Compared to ECG 06/09/2023 17:27:20 T-wave abnormality no longer present Possible ischemia no longer present Electronically Signed On 06-11-2023 0:36:18 TABLE MAKER by Luisito Barajas M.D. [email or web address].[employer]/store/[id number]
[2023-06-10] MEDS: sucralfate 1 gm Tablet PO ×3 (07:15→20:51)
[2023-06-10] MEDS: clopidogrel 75 mg Tablet PO (07:16)
[2023-06-10 07:50] LABS: Troponin(5th) Baseline 25 ng/L (0-15)
[2023-06-10] MEDS: ipratropium-albuterol 3 mL Neb INHALATION ×4 (07:58→20:32)
[2023-06-10] MEDS: budesonide 0.5 mg/2 mL Neb INHALATION ×2 (07:58→20:32)
--- NOTE | 2023-06-10 08:05 | PC.NURSE ---
pt re-evaluated for his chest pain early this morning. Pt stated it is easing up to a level of 3 per pain scale. He described it as shooting pain on chest but more abdominal pain rated at 8 per pain scale.
--- NOTE | 2023-06-10 08:52 | ECG_ITS ---
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 Measurements Intervals [place] Rate: 51 P: 105 CT: 148 QRS: 27 QRSD: 120 T: 168 QT: 421 QTc: 388 Interpretive Statements SINUS BRADYCARDIA MODERATE INTRAVENTRICULAR CONDUCTION DELAY [110+ ms QRS DURATION] ST DEVIATION AND MODERATE T-WAVE ABNORMALITY, CONSIDER LATERAL ISCHEMIA [-0.1+ mV T-WAVE IN I/aVL/V5/V6] Compared to ECG 06/10/2023 06:56:11 T-wave abnormality now present Possible ischemia now present Sinus arrhythmia no longer present Electronically Signed On 06-11-2023 0:48:27 ASSISTANT PROFESSOR OF ARCHAEOLOGY by Luisito Barajas M.D. [email or web address].[id number]
--- NOTE | 2023-06-10 09:18 | P.PN_ITS ---
Vitals/I&O/Wt Last Vital Signs Temp 98.2 F 06/10/23 08:43 Pulse 72 06/10/23 08:43 Resp 20 H 06/10/23 08:43 BP 110/44 06/10/23 08:43 Pulse Ox 97 06/10/23 08:43 O2 Del Method Nasal Cannula 06/10/23 08:43 O2 Flow Rate 2 06/10/23 08:43 06/09/23 06/10/23 06/10/23 22:59 06:59 14:59 Intake Total 536 / 536 1070 / 1606 100 / 100 Output Total 0 / 0 0 / 0 Balance 536 / 536 1070 / 1606 100 / 100 Weight last 48 hrs Weight 236 lb Weight 240 lb Data 06/10/23 04:06 06/10/23 04:06 A&P Assessment and plan (1) Acute upper gastrointestinal bleeding: (2) Abdominal pain: Plan Continue IV Protonix and p.o. sucralfate He may have a diet tonight and then n.p.o. after midnight for EGD tomorrow afternoon The risks and benefits of the procedure, including bleeding, infection, intestinal perforation requiring surgery, missed lesion were explained to the patient. The patient is understanding of the risks and wishes to proceed. Medical management per primary Attestations 2 Medical Necessity Statement*: Per primary Coding Level of Care Code Acute Code for Chg Fwd Diagnoses Acute upper gastrointestinal bleeding K92.2 Abdominal pain R10.9
[2023-06-10] MEDS: topiramate 100 mg Tablet 50 MG PO (09:29)
[2023-06-10] MEDS: gabapentin 400 mg Capsule PO ×2 (09:29→20:51)
[2023-06-10] MEDS: pantoprazole 40 mg SDV IVP ×2 (09:29→20:51)
--- NOTE | 2023-06-10 09:33 | PC.NURSE ---
no chest pain at tghis time. pt stated he still has abdominal tenderness off and on.
--- NOTE | 2023-06-10 09:50 | PC.NURSE ---
Notified hospitalist via voalte phone Patient in room 103 Junior Cash. came in for an abdl pain in ER yesterday, suppose to have an EGD this today but had chest pain early this morning around 6:30, had ekg taken and troponin series again, trop baseline is 25, ekg shows sinus javier with st depression. GI Lab is wondering if pt is ok to proceed with the procedure? He denies any chest pain at this time but still has abdominal pain.
[2023-06-10 10:00] LABS: Troponin 5 2HR 24.58 ng/L (0-15)
[2023-06-10 10:05] LABS: Troponin 5 2HR Delta -0.42 ABS# (0-10)
--- NOTE | 2023-06-10 11:07 | PC.NURSE ---
informed GI Lab dept that hospitalist will asked cardiology for pt's ep of chest pain and ekg this morning. will keep them informed for changes and continuos of the procedure.
--- NOTE | 2023-06-10 11:22 | PM.CONSULT ---
Providers/Reason For Consult Consulting Physician/Specialty*: Gee Ochoa MD/ Cardiology Reason for Consult*: Pre op clearance Requesting Physician: Dr Cavazos Attending Physician: Sonja Cavazos MD Primary Care Provider: Portia Lawrence MD History of Present Illness History of Present Illness Junior Andersen is a 72 year old male with past medical history of CAD with prior CABG and recent stent to left circumflex artery in November 2022, diabetes who presented to hospital with abdominal discomfort. Also has been having hematemesis. Also has noted bloody diarrhea. Plan for EGD/colonoscopy. Cardiology consulted as patient describes some chest discomfort. On investigating further, he says the discomfort starts in abdomen and then radiates up to the epigastrium/chest. He has ST depressions on telemetry. EKG shows minimal ST depression in the lateral leads. However this is unchanged from prior EKGs in the past. Troponins have have not trended up. Review of Systems General: Reports: 10 or more systems reviewed and unremarkable except in HPI and below Medications/Allergies Home Medications Medication Instructions Recorded Confirmed Last Taken Type topiramate 50 mg tablet (Topamax) 50 mg PO BID #60 tabs 07/07/19 06/09/23 06/09/23 Rx tamsulosin 0.4 mg capsule 0.4 mg PO QPM BPH 12/06/20 06/09/23 06/08/23 History metoprolol succinate 50 mg 50 mg PO BID #180 tabs 09/21/22 06/09/23 06/09/23 Rx tablet,extended release 24 hr cholecalciferol (vitamin D3) 25 25 mcg PO TID 12/13/22 06/09/23 06/09/23 History mcg (1,000 unit) tablet (Vitamin D3) fluticasone 250 mcg-salmeterol 50 1 inh inhalation BID 12/13/22 06/09/23 06/09/23 History mcg/dose blistr powdr for inhalation (Advair Diskus) gabapentin 400 mg capsule 400 mg PO TID 12/13/22 06/09/23 06/09/23 History glucose 4 gram chewable tablet 4 - 16 g PO Q15M PRN Hypoglycemia 12/13/22 06/09/23 Unknown History lidocaine 5 % topical ointment 1 applic topical BID PRN Pain 12/13/22 06/09/23 Unknown History lisinopril 20 mg tablet 10 mg PO QAM 12/13/22 06/09/23 06/09/23 History melatonin 5 mg tablet 5 mg PO BEDTIME 12/13/22 06/09/23 06/08/23 History omega 2-cmj-skc-fish oil 1,000 mg 1 cap PO BID 12/13/22 06/09/23 06/09/23 History (120 mg-180 mg) capsule (Fish Oil) polyethylene glycol 3350 17 17 g PO BID PRN Constipation 12/13/22 06/09/23 Unknown History gram/dose oral powder (Miralax) potassium chloride 20 mEq 10 meq PO QAM 12/13/22 06/09/23 06/09/23 History tablet,extended release sennosides 8.6 mg-docusate sodium 1 tab PO BID 12/13/22 06/09/23 Unknown History 50 mg tablet (Senexon-S) nitroglycerin 0.4 mg sublingual 0.4 mg sublingual Q5M PRN chest 02/25/23 06/09/23 Unknown Rx tablet pain #30 tabs aspirin 325 mg tablet 325 mg PO QAM 04/19/23 06/09/23 06/09/23 History clopidogrel 75 mg tablet 75 mg PO QAM 04/19/23 06/09/23 06/09/23 History folic acid 400 mcg tablet 400 mcg PO DAILY 04/19/23 06/09/23 06/09/23 History furosemide 20 mg tablet 20 mg PO QAM 04/19/23 06/09/23 06/09/23 History insulin glargine 100 unit/mL (3 100 unit SUBCUT BEDTIME PRN BLOOD 04/19/23 06/09/23 06/08/23 History mL) subcutaneous pen SUGAR ipratropium 20 mcg-albuterol 100 1 puff inhalation QID 04/19/23 06/09/23 06/09/23 History mcg/actuation mist for inhalation rosuvastatin 40 mg tablet 40 mg PO QPM 04/19/23 06/09/23 06/08/23 History ascorbic acid (vitamin C) 500 mg 500 mg PO BID 06/09/23 06/09/23 06/09/23 History tablet (Vitamin C) insulin regular human 100 unit/mL 20 unit SUBCUT TID 06/09/23 06/09/2306/09/24 History (3 mL) subcutaneous pen Allergies Allergy/AdvReac Type Severity Reaction Status Date / Time adhesive tape Allergy ALGY-Rash Verified 06/09/23 11:04 Current Medications Generic Name Dose Route Start Last Admin Trade Name Freq PRN Reason Stop Dose Admin Albuterol/Ipratropium 3 ml 06/09/23 16:00 06/10/23 07:58 Ipratropium-Albuterol 3 Ml Neb INHALATION 3 ml QID.RESPIRATORY TORSTEN Administration Atorvastatin Calcium 80 mg 06/09/23 18:00 06/09/23 17:00 Atorvastatin 40 Mg Tablet PO 80 mg QPM TORSTEN Administration Budesonide 0.5 mg 06/09/23 20:00 06/10/23 07:58 Budesonide 0.5 Mg/2 Ml Neb INHALATION 0.5 mg BID.RESPIRATORY TORSTEN Administration Clopidogrel Bisulfate 75 mg 06/10/23 06:00 06/10/23 07:16 Clopidogrel 75 Mg Tablet PO 75 mg QAM TORSTEN Administration Gabapentin 400 mg 06/09/23 21:00 06/10/23 09:29 Gabapentin 400 Mg Capsule PO 400 mg TID TORSTEN Administration Sodium Chloride 1,000 mls @ 100 mls/hr 06/09/23 15:31 06/10/23 09:35 Sodium Chloride 0.9% IV 100 mls/hr .Q10H TORSTEN Administration Ciprofloxacin/Dextrose 200 mg in 100 mls @ 100 mls/hr 06/10/23 02:00 06/10/23 02:52 Cipro IV Infused Q12H TORSTEN Infusion Protocol Metronidazole 500 mg in 100 mls @ 100 mls/hr 06/09/23 23:00 06/10/23 07:17 Flagyl Iv IV Infused Q8H TORSTEN Infusion Protocol Insulin Human Lispro 0 unit 06/09/23 18:00 06/10/23 08:04 Insulin Lispro 100 Unit/1 Ml SUBCUT Not Given WM&BEDTIME TORSTEN Protocol Morphine Sulfate 2 mg 06/09/23 15:31 06/10/23 06:37 Morphine 4 Mg/Ml Sdv 1 Ml IVP 2 mg Q4H PRN Administration SEVERE PAIN Pantoprazole Sodium 40 mg 06/09/23 21:00 06/10/23 09:29 Pantoprazole 40 Mg Sdv IVP 40 mg Q12H TORSTEN Administration Senna/Docusate Sodium 1 tab 06/09/23 18:00 06/10/23 09:27 Sennosides-Docusate Tablet PO Not Given BID TORSTEN Sucralfate 1 gm 06/09/23 17:00 06/10/23 07:15 Sucralfate 1 Gm Tablet PO 1 gm AC&BEDTIME TORSTEN Administration Tamsulosin HCl 0.4 mg 06/09/23 18:00 06/09/23 17:54 Tamsulosin 0.4 Mg Capsule PO 0.4 mg QPM TORSTEN Administration Topiramate 50 mg 06/09/23 18:00 06/10/23 09:29 Topiramate 100 Mg Tablet PO 50 mg BID TORSTEN Administration PFSH Acute PFSH: Medical History Tobacco abuse NSTEMI (non-ST elevated myocardial infarction) Systolic CHF with reduced left ventricular function, NYHA class 2 Bilateral carotid artery stenosis Erectile dysfunction Urinary retention Cutaneous wart Current smoker JENAE on CPAP Acute cystitis without hematuria Phimosis BPH NOS w ur obs/LUTS COPD (chronic obstructive pulmonary disease) Hypertension Diabetes Complex partial epilepsy with generalization Myocardial infarct Chronic headache CAD (coronary artery disease) Balanitis Surgical History H/O heart artery stent S/P carotid endarterectomy H/O circumcision History of laparotomy History of appendectomy History of coronary artery bypass graft Family History Mother , at age 103 No problems noted. Father , at age 89 Congestive heart failure (CHF) Other CAD (coronary artery disease) Hypertension Mesothelioma Social History Smoking and tobacco/nicotine status: current every day tobacco/nicotine user cigarettes Packs smoked per day: 1.5 Years cigarettes smoked: 52 [ Other cigarette details: was 2ppd] Alcohol intake: never Substance/Drug Use: never Marital status: service: Yes Current occupational status: retired and disabled Do you think of yourself as: Straight/Heterosexual Vitals/I&O/Wt Last Vital Signs Temp 98.2 F 06/10/23 08:43 Pulse 72 06/10/23 08:43 Resp 20 H 06/10/23 08:43 BP 110/44 06/10/23 08:43 Pulse Ox 97 06/10/23 08:43 O2 Del Method Nasal Cannula 06/10/23 08:43 O2 Flow Rate 2 06/10/23 08:43 06/09/23 06/10/23 06/10/23 22:59 06:59 14:59 Intake Total 536 / 536 1070 / 1606 940 / 940 Output Total 0 / 0 0 / 0 650 / 650 Balance 536 / 536 1070 / 1606 290 / 290 Weight last 48 hrs Weight 236 lb Weight 240 lb Physical Exam Narrative: GENERAL: Patient is alert, awake and oriented x3. [] NECK: No jugular vein distension. [] HEENT: No cyanosis. No icterus. No pallor. [] HEART: Regular S1 and S2. No murmur, rub or gallop. [] LUNGS: Clear to auscultate bilaterally. [] CENTRAL NERVOUS SYSTEM: Grossly nonfocal. [] EXTREMITIES: Lower extremities with 1+ edema bilaterally Data 06/10/23 09:08 06/10/23 04:06 A&P Assessment and plan (1) CAD (coronary artery disease): Qualifiers: Coronary Disease-Associated Artery/Lesion type: unspecified vessel or lesion type [place] vs. transplanted heart: [place] heart Associated angina: angina presence unspecified Qualified Code(s): I25.10 - Atherosclerotic heart disease of [place] coronary artery without angina pectoris (2) History of coronary artery bypass graft: (3) Hypertension: (4) Presence of stent in coronary artery in patient with coronary artery disease: (5) Chest pain: Plan Patient's chest pain symptoms are atypical. Troponins have not trended up significantly. EKG changes are chronic and similar to prior EKGs. His last stent was about 5 to 6 months ago. His aspirin and Plavix have been held. Will recommend obtaining echocardiogram. If no significant change from before, he is at acceptable risk to undergo EGD and colonoscopy. Restart aspirin and Plavix as soon as possible. Thank you for involving us with care of this patient. We will continue to follow. please call with questions. Consult Attestations Medical Necessity Statement: Care expected to cross 2 midnights. Coding Level of Care Code Acute Code for Chg Fwd Diagnoses Coronary artery disease involving [place] heart, angina presence unspecified, unspecified vessel or lesion type I25.10 Coronary Disease-Associated Artery/Lesion type: unspecified vessel or lesion type [place] vs. transplanted heart: [place] heart Associated angina: angina presence unspecified History of coronary artery bypass graft Z95.1 Hypertension I10 Presence of stent in coronary artery in patient with coronary artery disease I25.10; Z95.5 Chest pain R07.9
--- NOTE | 2023-06-10 11:32 | PM.PN ---
Subjective Subjective: Somewhat of a poor historian. He states he had bloody vomitus and has also had bloody diarrhea. He says he is gone more than 3-4 times last night. He says every time he coughs he ends up having bloody diarrhea with that as well. He cannot tell me the quantity because he says when I looked down on the toilet it looks bloody. This was difficult for him to describe more than what he told me above. He does state he drinks well water. He says he has drank well water his whole life. Denies eating out at a restaurant or eating canned foods. He states his abdomen is sore he has chest pain that at times goes down to his abdomen and at other times goes from his abdomen up to his chest. RN reported overnight he had an episode of chest pain this morning where serial EKGs were ordered and troponin series were ordered. Initial EKG does have questionable ST depression. Troponin 25, 25. Aspirin Plavix being held at this time. Patient is scheduled for EGD this afternoon. Hemoglobin 10.7. Vitals/I&O/Wt Last Vital Signs Temp 97.5 F L 06/10/23 11:20 Pulse 65 06/10/23 11:28 Resp 16 06/10/23 11:25 BP 112/42 06/10/23 11:20 Pulse Ox 95 06/10/23 11:25 O2 Del Method Nasal Cannula 06/10/23 11:25 O2 Flow Rate 2 06/10/23 11:25 06/09/23 06/10/23 06/10/23 22:59 06:59 14:59 Intake Total 536 / 536 1070 / 1606 940 / 940 Output Total 0 / 0 0 / 0 650 / 650 Balance 536 / 536 1070 / 1606 290 / 290 Weight last 48 hrs Weight 107.048 kg Weight 108.862 kg Physical Exam Narrative: General: Patient is awake and alert. Pleasant. Cardiovascular: RRR. No gallops. No murmurs. Lungs: Breath sounds are manage bilateral bases, no use of accessory muscles, no crackles or wheezes. Abdomen: Bowel sounds are present. Abdomen is distended. Very mild tenderness palpation in all 4 quadrants. Extremities: No cyanosis or clubbing. Musculoskeletal: No swollen or erythematous joints. Neurological: Moves all 4 extremities. No myoclonus. Data 06/10/23 09:08 06/10/23 04:06 A&P Assessment and plan (1) Acute upper gastrointestinal bleeding: Abdominal pain with hematemesis concerning for upper GI bleed Continue IV PPI Continue Carafate Hold aspirin,at this time. Continue Plavix for now. Hemoglobin is stable at 10.70 at this time. Avoid NSAIDs or anticoagulation at this time. Trend hemoglobin daily. General surgery is consulted. Plan for EGD today. (2) Abdominal pain: CT scan reviewed, with small bowel inflammation, concerning for enteritis Start broad-spectrum antibiotics with Cipro/Flagyl, QTc 427 Supportive care He drinks well water. I will check for stool culture, ova parasite screen Patient is a diabetic, immunocompromise. Will check for Cryptosporidium antigen, Giardia although suspicion is low for that Check for C. difficile Check lactoferrin (3) CAD (coronary artery disease): Continue Plavix Hold aspirin Hold metoprolol as heart rate is currently around 60, may be able to restart pending clinical course. Heart rate has been in the low 40s on telemetry at times. Continue statin Patient did have an episode of chest pain this morning. Mild ST depression noted on EKG in lateral leads. Troponin 25, 25. Obtain new EKG at this time. Has a history of CABG, along with recent PCI done in December. Will consult cardiology. Discussed with cardiology. Will check echocardiogram at this time. EKG to be repeated. Continue to hold metoprolol for now. Qualifiers: Coronary Disease-Associated Artery/Lesion type: unspecified vessel or lesion type [place] vs. transplanted heart: [place] heart Associated angina: angina presence unspecified Qualified Code(s): I25.10 - Atherosclerotic heart disease of [place] coronary artery without angina pectoris (4) COPD (chronic obstructive pulmonary disease): Not in acute exacerbation Breathing treatments as needed Qualifiers: COPD type: unspecified COPD Qualified Code(s): J44.9 - Chronic obstructive pulmonary disease, unspecified (5) Diabetes: On moderately high insulin doses as outpatient Glucose is currently less than 200 He is n.p.o. but still at high risk for stress-induced hyperglycemia Will use sliding scale for now, will need titrated as hospital course continues (6) Hypertension: Blood pressure currently normal Hold lisinopril given GI bleed Hold metoprolol given normal heart rate and GI bleed (7) Systolic CHF with reduced left ventricular function, NYHA class 2: Currently on IV fluids around 1 mL/kg body weight. I will hold on fluids at this time. Avoid fluid overload with daily assessments Monitor labs Holding Lasix Supportive care Plan DVT prophylaxis: SCD CODE STATUS: Full code Talk with RN, cardiology. Attestations Medical Necessity Statement*: Requires hospitalization for workup of hematemesis, hematochezia, chest pain. Diagnoses Acute upper gastrointestinal bleeding K92.2 Abdominal pain R10.9 Coronary artery disease involving [place] heart, angina presence unspecified, unspecified vessel or lesion type I25.10 Coronary Disease-Associated Artery/Lesion type: unspecified vessel or lesion type [place] vs. transplanted heart: [place] heart Associated angina: angina presence unspecified Chronic obstructive pulmonary disease, unspecified COPD type J44.9 COPD type: unspecified COPD Diabetes E11.9 Hypertension I10 Systolic CHF with reduced left ventricular function, NYHA class 2 I50.20
[2023-06-10 11:33] LABS: Glucose Point of Care 163 mg/dL (70-110)
--- NOTE | 2023-06-10 11:47 | ECG_ITS ---
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 Measurements Intervals [place] Rate: 60 P: 77 [place]: 147 QRS: 23 QRSD: 126 T: 196 QT: 412 QTc: 412 Interpretive Statements SINUS RHYTHM WITH MARKED SINUS ARRHYTHMIA MODERATE INTRAVENTRICULAR CONDUCTION DELAY [110+ ms QRS DURATION] ST DEVIATION AND MODERATE T-WAVE ABNORMALITY, CONSIDER LATERAL ISCHEMIA [-0.1+ mV T-WAVE IN I/aVL/V5/V6] Compared to ECG 06/10/2023 08:52:54 Sinus bradycardia no longer present T-wave abnormality still present Possible ischemia still present Electronically Signed On 06-11-2023 0:58:48 [place] by Luisito Barajas M.D. [id number]
--- NOTE | 2023-06-10 11:50 | USCV_ITS ---
Junior Andersen Age: 72 Gender: M : 1950 Exam Date: 06/10/2023 12:56 Ordering Phys: Sonja Cavazos MD Technologist: Exam Location: [facility] [place] Indication: cva BP: 112 / 42 HR: 0 Rhythm: Sinus Technical Quality: Adequate MEASUREMENTS (Male / Female) Normal Values 2D ECHO LV Diastolic Diameter PLAX 5.4 cm 4.2 - 5.9 / 3.9 - 5.3 cm IVS Diastolic Thickness 1.3 cm 0.6 - 1.0 / 0.6 - 0.9 cm IVS Systolic Thickness 2.0 cm LVPW Diastolic Thickness 1.3 cm 0.6 - 1.0 / 0.6 - 0.9 cm LVPW Systolic Thickness 1.7 cm LVOT Diameter 2.0 cm LV Ejection Fraction 2D Teich 50.1 % LV Ejection Fraction MOD 2C 53.9 % LV Ejection Fraction 2C AL 0.0 % LA Diameter 3.0 cm M-MODE LA Ao Ratio MM 0.9 AV Cusp Separation MM 2.0 cm DOPPLER AV Peak Velocity 110.0 cm/s LVOT Peak Velocity 75.0 cm/s AV Area Cont Eq vti 2.2 cm squared AV Area Cont Eq pk 2.1 cm squared MV Peak Velocity 118.0 cm/s MV Area PHT 4.0 cm squared Mitral E to A Ratio 1.7 TV Peak Velocity 126.5 cm/s TR Peak Velocity 144.0 cm/s TR Peak Gradient 8.3 mmHg TV Peak E Velocity 77.0 cm/s Right Atrial Pressure 3.0 mmHg Pulmonary Artery Systolic Pressu 11.3 mmHg PV Peak Velocity 98.0 cm/s FINDINGS Left Ventricle Left ventricle is normal in size. LV systolic function is normal with EF of 50 to 55%. No regional wall motion abnormalities are seen. Right Ventricle Normal in size and function Right Atrium Normal in size Left Atrium Normal in size Mitral Valve Mild mitral annular calcification is seen. Mild mitral regurgitation. Aortic Valve Grossly normal. No significant stenosis or regurgitation. Tricuspid Valve Mild tricuspid regurgitation. Insufficient TR jet to calculate RVSP. Pulmonic Valve Trace pulmonic regurgitation. Pericardium Normal Aorta Normal in size IVC Not well visualized CONCLUSIONS LV systolic function is normal with EF of 50 to 55%. Mild mitral regurgitation. Mild tricuspid regurgitation Trace pulmonic regurgitation Compared to prior echocardiogram from 11/2022, no significant changes are seen Gee Ochoa MD (Electronically Signed) Final Date: 10 June 2023 14:35 S
--- NOTE | 2023-06-10 13:09 | PC.NURSE ---
quynh in room for us echo
[2023-06-10 14:10] LABS: Troponin 5 6HR 26.19 ng/L (0-15); Troponin 5 6HR Delta 1.19 ng/L (0-12)
[2023-06-10] MEDS: sodium chloride 0.9% 1,000 ML 30 ML IV (15:46)
[2023-06-10 16:26] LABS: Hematocrit 36.7 % (37-53)
[2023-06-10 16:49] LABS: Glucose Point of Care 147 mg/dL (70-110)
--- NOTE | 2023-06-10 17:03 | PC.NURSE ---
pt is taken to GI LAB via Wheelchair for his EGD.
--- NOTE | 2023-06-10 17:50 | ANES.PREANE2 ---
Pre-Anesthetic Assessment Height/Weight: Height 1.8 m Weight 107.048 kg Temp Pulse Resp BP Pulse Ox O2 Del Method O2 Flow Rate 98.0 F 53 L 20 H 136/54 98 Room Air 2 06/10/23 17:10 06/10/23 17:10 06/10/23 17:10 06/10/23 17:10 06/10/23 17:10 06/10/23 17:10 06/10/23 16:11 Operation Date: 06/10/23 08:40 Proposed Procedures p EGD(Not Applicable) - Ge Mckenzie, DO Was Beta Ricky taken within 24 hours: Yes Was Clonidine taken within 24 hours: N/A Last intake: Intake Last Liquid Date 06/10/23 Last Liquid Time 20:00 Last Solid Date 06/09/23 Last Solid Time 08:00 Social Tobacco 1 pack(s) per day Exam alert and oriented x 3 Airway Submandibular: within normal limits Cervical ROM: within normal limits Mallampati: Class II Comments: Comments: Edentulous History/ROS No significant history except as noted and No significant complaints Pulmonary Chronic Obstructive Pulmonary Disease and Sleep Apnea CV/HEM Coronary Artery Disease, Hypertension and Myocardial Infarction Hx CABG & stents. Echo 05/2023: EF 55% Metabolic Diabetes Mellitus, Hyperlipidemia and Morbid Obesity Neuropsych Cerebrovascular Accident Carotid stenosis s/p CEA. Some mild L-sided weakness. Able to ambulate. Anesthetic Plan ASA status: 3 Anesthesia: MAC Risk of > 500 ml blood loss (7ml/kg in children): No Medications/Allergies Home Medications Medication Instructions Recorded Confirmed Last Taken Type topiramate 50 mg tablet (Topamax) 50 mg PO BID #60 tabs 07/07/19 06/09/23 06/09/23 Rx tamsulosin 0.4 mg capsule 0.4 mg PO QPM BPH 12/06/20 06/09/23 06/08/23 History metoprolol succinate 50 mg 50 mg PO BID #180 tabs 09/21/22 06/09/23 06/09/23 Rx tablet,extended release 24 hr cholecalciferol (vitamin D3) 25 25 mcg PO TID 12/13/22 06/09/23 06/09/23 History mcg (1,000 unit) tablet (Vitamin D3) fluticasone 250 mcg-salmeterol 50 1 inh inhalation BID 12/13/22 06/09/23 06/09/23 History mcg/dose blistr powdr for inhalation (Advair Diskus) gabapentin 400 mg capsule 400 mg PO TID 12/13/22 06/09/23 06/09/23 History glucose 4 gram chewable tablet 4 - 16 g PO Q15M PRN Hypoglycemia 12/13/22 06/09/23 Unknown History lidocaine 5 % topical ointment 1 applic topical BID PRN Pain 12/13/22 06/09/23 Unknown History lisinopril 20 mg tablet 10 mg PO QAM 12/13/22 06/09/23 06/09/23 History melatonin 5 mg tablet 5 mg PO BEDTIME 12/13/22 06/09/23 06/08/23 History omega 3-bky-rhk-fish oil 1,000 mg 1 cap PO BID 12/13/22 06/09/23 06/09/23 History (120 mg-180 mg) capsule (Fish Oil) polyethylene glycol 3350 17 17 g PO BID PRN Constipation 12/13/22 06/09/23 Unknown History gram/dose oral powder (Miralax) potassium chloride 20 mEq 10 meq PO QAM 12/13/22 06/09/23 06/09/23 History tablet,extended release sennosides 8.6 mg-docusate sodium 1 tab PO BID 12/13/22 06/09/23 Unknown History 50 mg tablet (Senexon-S) nitroglycerin 0.4 mg sublingual 0.4 mg sublingual Q5M PRN chest 02/25/23 06/09/23 Unknown Rx tablet pain #30 tabs aspirin 325 mg tablet 325 mg PO QAM 04/19/23 06/09/23 06/09/23 History clopidogrel 75 mg tablet 75 mg PO QAM 04/19/23 06/09/23 06/09/23 History folic acid 400 mcg tablet 400 mcg PO DAILY 04/19/23 06/09/23 06/09/23 History furosemide 20 mg tablet 20 mg PO QAM 04/19/23 06/09/23 06/09/23 History insulin glargine 100 unit/mL (3 100 unit SUBCUT BEDTIME PRN BLOOD 04/19/23 06/09/23 06/08/23 History mL) subcutaneous pen SUGAR ipratropium 20 mcg-albuterol 100 1 puff inhalation QID 04/19/23 06/09/23 06/09/23 History mcg/actuation mist for inhalation rosuvastatin 40 mg tablet 40 mg PO QPM 04/19/23 06/09/23 06/08/23 History ascorbic acid (vitamin C) 500 mg 500 mg PO BID 06/09/23 06/09/23 06/09/23 History tablet (Vitamin C) insulin regular human 100 unit/mL 20 unit SUBCUT TID 06/09/23 06/09/23 06/09/23 History (3 mL) subcutaneous pen Allergies Allergy/AdvReac Type Severity Reaction Status Date / Time adhesive tape Allergy ALGY-Rash Verified 06/09/23 11:04 Current Medications Generic Name Dose Route Start Last Admin Trade Name Freq PRN Reason Stop Dose Admin Albuterol/Ipratropium 3 ml 06/09/23 16:00 06/10/23 16:11 Ipratropium-Albuterol 3 Ml Neb INHALATION 3 ml QID.RESPIRATORY TORSTEN Administration Atorvastatin Calcium 80 mg 06/09/23 18:00 06/09/23 17:00 Atorvastatin 40 Mg Tablet PO 80 mg QPM TORSTEN Administration Budesonide 0.5 mg 06/09/23 20:00 06/10/23 07:58 Budesonide 0.5 Mg/2 Ml Neb INHALATION 0.5 mg BID.RESPIRATORY TORSTEN Administration Clopidogrel Bisulfate 75 mg 06/10/23 06:00 06/10/23 07:16 Clopidogrel 75 Mg Tablet PO 75 mg QAM TORSTEN Administration Gabapentin 400 mg 06/09/23 21:00 06/10/23 09:29 Gabapentin 400 Mg Capsule PO 400 mg TID TORSTEN Administration Ciprofloxacin/Dextrose 200 mg in 100 mls @ 100 mls/hr 06/10/23 02:00 06/10/23 15:47 Cipro IV Infused Q12H TORSTEN Infusion Protocol Metronidazole 500 mg in 100 mls @ 100 mls/hr 06/09/23 23:00 06/10/23 15:52 Flagyl Iv IV 100 mls/hr Q8H TORSTEN Administration Protocol Sodium Chloride 1,000 mls @ 30 mls/hr 06/10/23 08:30 06/10/23 15:46 Sodium Chloride 0.9% IV 06/11/23 08:29 30 mls/hr .Q24H TORSTEN Administration Insulin Human Lispro 0 unit 06/09/23 18:00 06/10/23 13:05 Insulin Lispro 100 Unit/1 Ml SUBCUT Not Given WM&BEDTIME TORSTEN Protocol Morphine Sulfate 2 mg 06/09/23 15:31 06/10/23 06:37 Morphine 4 Mg/Ml Sdv 1 Ml IVP 2 mg Q4H PRN Administration SEVERE PAIN Pantoprazole Sodium 40 mg 06/09/23 21:00 06/10/23 09:29 Pantoprazole 40 Mg Sdv IVP 40 mg Q12H TORSTEN Administration Senna/Docusate Sodium 1 tab 06/09/23 18:00 06/10/23 09:27 Sennosides-Docusate Tablet PO Not Given BID TORSTEN Sucralfate 1 gm 06/09/23 17:00 06/10/23 13:59 Sucralfate 1 Gm Tablet PO Not Given AC&BEDTIME TORSTEN Tamsulosin HCl 0.4 mg 06/09/23 18:00 06/09/23 17:54 Tamsulosin 0.4 Mg Capsule PO 0.4 mg QPM TORSTEN Administration Topiramate 50 mg 06/09/23 18:00 06/10/23 09:29 Topiramate 100 Mg Tablet PO 50 mg BID TORSTEN Administration PFSH Anesthesia Medical History Tobacco abuse NSTEMI (non-ST elevated myocardial infarction) Systolic CHF with reduced left ventricular function, NYHA class 2 Bilateral carotid artery stenosis Erectile dysfunction Urinary retention Cutaneous wart Current smoker JENAE on CPAP Acute cystitis without hematuria Phimosis BPH NOS w ur obs/LUTS COPD (chronic obstructive pulmonary disease) Hypertension Diabetes Complex partial epilepsy with generalization Myocardial infarct Chronic headache CAD (coronary artery disease) Balanitis Surgical History H/O heart artery stent S/P carotid endarterectomy H/O circumcision History of laparotomy History of appendectomy History of coronary artery bypass graft Family History Mother , at age 103 No problems noted. Father , at age 89 Congestive heart failure (CHF) Other CAD (coronary artery disease) Hypertension Mesothelioma Social History Smoking and tobacco/nicotine status: current every day tobacco/nicotine user cigarettes Packs smoked per day: 1.5 Years cigarettes smoked: 52 [ Other cigarette details: was 2ppd] Alcohol intake: never Substance/Drug Use: never Marital status: service: Yes Current occupational status: retired and disabled Do you think of yourself as: Straight/Heterosexual Data Anesthesia 06/10/23 16:16 06/10/23 04:06 Short CBC 06/09/23 06/10/23 06/10/23 Range/Units 11:30 00:45 04:06 WBC 11.72 H 7.68 (3.29-11.43) 10^3/uL Hgb 13.40 10.90 L 10.70 L (11.27-16.99) g/dL Hct 41.1 34.5 L 34.2 L (37-53) % MCV 88.4 90.2 (82-101) fl Plt Count 149 L 121 L (157-399) 10^3/cmm Neut % (Auto) 79.0 64.7 % Neut # (Auto) 9.26 H 4.98 (1.8-7.7) 10^3/uL 06/10/23 06/10/23 Range/Units 09:08 16:16 WBC (3.29-11.43) 10^3/uL Hgb 10.70 L 11.00 L (11.27-16.99) g/dL Hct 34.0 L 36.7 L (37-53) % MCV (82-101) fl Plt Count (157-399) 10^3/cmm Neut % (Auto) % Neut # (Auto) (1.8-7.7) 10^3/uL BMP 06/09/23 06/10/23 11:30 04:06 Sodium 137 138 Potassium 4.8 4.4 Chloride 104 108 H Carbon Dioxide 22 24 BUN 24 H 32 H Creatinine 1.4 H 2.0 H Glucose 187 H 182 H Calcium 8.7 8.2 L Cardiac Enzymes 06/09/23 06/09/23 06/09/23 Range/Units 11:30 13:01 17:24 Troponin T Baseline 23 H (0-15) ng/L Troponin T 120 Minute 21.95 H (0-15) ng/L Delta Troponin T -1.05 L (0-10) ABS# Troponin T Hi Sens 6Hr 23.92 H (0-15) ng/L Troponin T Hi Sens 6Hr Delta 0.92 (0-12) ng/L 06/10/23 06/10/23 06/10/23 Range/Units 07:24 09:08 13:32 Troponin T Baseline 25 H (0-15) ng/L Troponin T 120 Minute 24.58 H (0-15) ng/L Delta Troponin T -0.42 L (0-10) ABS# Troponin T Hi Sens 6Hr 26.19 H (0-15) ng/L Troponin T Hi Sens 6Hr Delta 1.19 (0-12) ng/L Liver Function 06/09/23 06/10/23 Range/Units 11:30 04:06 Total Bilirubin 1.2 0.6 (0.15-1.2) mg/dL AST 13 11 (0-40) U/L ALT 9 6 (0-41) U/L Alkaline Phosphatase 87 69 (40-130) U/L Albumin 4.1 3.4 L (3.5-5.2) g/dL Urine 06/09/23 Range/Units 13:35 Urine Color Yellow (Yellow) Urine Appearance Clear (CLEAR) Urine pH 5 (5-7) Ur Specific [place] 1.005 (1.005-1.030) Urine Protein 1+ H (Negative) Urine Glucose (UA) Norm (Normal) Urine Ketones Negative (Negative) Urine Nitrate Negative (Negative) Urine Bilirubin Neg (Negative) Ur Leukocyte Esterase Trace H (Negative) Urine RBC None (0-2) /hpf Urine WBC 0-4 H (0-5) /hpf Cardiac Studies: Echocardiogram 06/10/23 Sestamibi Stress Test (Cardiology) 05/21/22
--- NOTE | 2023-06-10 18:14 | P.PCN_ITS ---
PACU note Narrative: VSS, Good respiratory effort, report to REALTY SPECIALIST Exam: awake
--- NOTE | 2023-06-10 18:14 | PM.PACU ---
PACU note Narrative: VSS, Good respiratory effort, report to PREDATORY GAME HUNTER Exam: awake
--- NOTE | 2023-06-10 18:36 | ANE.PACU2 ---
Inpatient post-anesthesia follow up: Airway intact: Yes Vital signs: Temperature 98.4 F Pulse Rate 65 Respiratory Rate 18 Blood Pressure 118/39 Pulse Oximetry 93 Oxygen Delivery Me thod Nasal Cannula Oxygen Flow Rate 6 Fraction of Inspir ed Oxygen Hydration adequate: Yes Nausea and vomiting: No Pain level: 1 Mental status: Baseline
[2023-06-10 20:54] LABS: Glucose Point of Care 191 mg/dL (70-110)
[2023-06-11] VITALS (10 sets, daily range): BP systolic 126–150; BP diastolic 48–53; PULSE 52–76; RESP 12–22; TEMP 36.6–37.1; O2SAT 93–99
[2023-06-11] MEDS: morphine 4 mg/mL SDV 1 mL 2 MG IVP (02:53)
[2023-06-11] MEDS: ciprofloxacin 200 MG/100 ML PREMIX 100 MG IV (02:55)
[2023-06-11 05:16] LABS: Basophils % 0.5 %; Eosinophils # 0.2 10^3/uL (0.0-0.8); Eosinophils % 2.8 %; Hematocrit 34.4 % (37-53); Lymphocytes # 0.8 10^3/uL (0.8-4.8); Lymphocytes % 12.8 %; Mean Corpuscular HGB Conc 31.7 g/dL (30-55); Mean Corpuscular Hemoglobin 28.6 pg (27-33); Mean Corpuscular Volume 90.3 fl (82-101); Mean Platelet Volume 11.3 fL (7.4-10.4); Monocytes # 0.8 10^3/uL (0.2-0.9); Monocytes % 11.7 %; Neutrophils # 4.62 10^3/uL (1.8-7.7); Nucleated Red Blood Cells % 0 %; Platelet Count 121 10^3/cmm (157-399); Red Blood Count 3.81 10^6/uL (3.85-5.65); Red Cell Distribution Width 13.3 % (12.1-15.1); White Blood Count 6.41 10^3/uL (3.29-11.43)
[2023-06-11 05:37] LABS: Alanine Aminotransferase 6 U/L (0-41); Albumin Level 3.2 g/dL (3.5-5.2); Alkaline Phosphatase 71 U/L (40-130); Aspartate Amino Transferase 8 U/L (0-40); Blood Urea Nitrogen 21 mg/dL (8-23); Calcium 8.2 mg/dL (8.5-10.5); Carbon Dioxide 22 mmol/L (22-29); Chloride 109 mmol/L (98-107); Creatinine Clr Calc Pharmacy 60.9467; Globulin 2.9 g/dL (1.3-4.6); Glomerular Filtration Rate 50.1 mL/min (90-130); Glucose 196 mg/dL (65-115); Magnesium 2.3 mg/dL (1.7-2.3); Osmolality Calculated 298 mOsm/kg (285-295); Phosphorus 3.3 mg/dL (2.5-4.5); Sodium 140 mmol/L (136-145); Total Bilirubin 0.5 mg/dL (0.15-1.2); Total Protein 6.1 g/dL (6.6-8.7)
[2023-06-11 06:32] LABS: Glucose Point of Care 191 mg/dL (70-110)
[2023-06-11] MEDS: clopidogrel 75 mg Tablet PO (06:42)
[2023-06-11] MEDS: metroNIDAZOLE IV 500 MG/100 ML PREMIX 100 MG IV (07:00)
[2023-06-11] MEDS: sennosides-docusate Tablet 1 TAB PO (08:27)
[2023-06-11] MEDS: sucralfate 1 gm Tablet PO ×2 (08:27→12:23)
[2023-06-11] MEDS: topiramate 100 mg Tablet 50 MG PO (08:27)
[2023-06-11] MEDS: pantoprazole 40 mg SDV IVP (08:27)
[2023-06-11] MEDS: metoprolol succinate ER (24 HR) 50 mg Tablet PO (08:28)
[2023-06-11] MEDS: gabapentin 400 mg Capsule PO (08:28)
[2023-06-11] MEDS: insulin lispro 100 unit/1 mL SUBCUT ×2 (08:28→12:24)
--- NOTE | 2023-06-11 08:37 | P.PN_ITS ---
Subjective 2 Subjective: Patient is doing well. no chest pain Vitals/I&O/Wt Last Vital Signs Temp 97.8 F 06/11/23 07:28 Pulse 67 06/11/23 07:28 Resp 16 06/11/23 07:28 BP 145/49 06/11/23 07:28 Pulse Ox 97 06/11/23 07:28 O2 Del Method Nasal Cannula 06/11/23 04:00 O2 Flow Rate 6 06/10/23 18:08 06/10/23 06/11/23 06/11/23 22:59 06:59 14:59 Intake Total 960 / 2100 1000 / 3100 Output Total 490 / 1140 400 / 1540 175 / 175 Balance 470 / 960 600 / 1560 -175 / -175 Weight last 48 hrs Weight 234 lb 11.2 oz Weight 236 lb Weight 240 lb Physical Exam 2 Narrative: GENERAL: Patient is alert, awake and oriented x3. [] NECK: No jugular vein distension. [] HEENT: No cyanosis. No icterus. No pallor. [] HEART: Regular S1 and S2. No murmur, rub or gallop. [] LUNGS: Clear to auscultate bilaterally. [] CENTRAL NERVOUS SYSTEM: Grossly nonfocal. [] EXTREMITIES: Lower extremities with 1+ edema bilaterally Data 06/11/23 04:15 06/11/23 04:15 A&P Assessment and plan (1) CAD (coronary artery disease): Qualifiers: Coronary Disease-Associated Artery/Lesion type: unspecified vessel or lesion type [place] vs. transplanted heart: [place] heart Associated angina: a ngina presence unspecified Qualified Code(s): I25.10 - Atherosclerotic heart disease of [place] coronary artery without angina pectoris (2) History of coronary artery bypass graft: (3) Hypertension: (4) Presence of stent in coronary artery in patient with coronary artery disease: (5) Chest pain: Plan Patient's endoscopy was uneventful. Will recommend to come back on dual antiplatelet therapy. Thank you for involving us with care of this patient. please call with questions. Attestations 2 Medical Necessity Statement*: Care expected to cross 2 midnights. Coding Level of Care Code Acute Code for [facility] Fwd Diagnoses Coronary artery disease involving [place] heart, angina presence unspecified, unspecified vessel or lesion type I25.10 Coronary Disease-Associated Artery/Lesion type: unspecified vessel or lesion type [place] vs. transplanted heart: [place] heart Associated angina: angina presence unspecified History of coronary artery bypass graft Z95.1 Hypertension I10 Presence of stent in coronary artery in patient with coronary artery disease I25.10; Z95.5 Chest pain R07.9
[2023-06-11] MEDS: budesonide 0.5 mg/2 mL Neb INHALATION (08:39)
[2023-06-11] MEDS: ipratropium-albuterol 3 mL Neb INHALATION ×2 (08:39→11:39)
--- NOTE | 2023-06-11 09:41 | PC.CHAP ---
Pastoral Care Encounter/Spiritual Assessment Type of Contact [] Declined radiology teacher visit [] Patient/Family/Request visit [] Outpatient visit [] Follow-up visit [] Physician referral [] Code/Alert [x] Routine visit [] Staff referral [] Actively dying [] Patient sleeping [] Family support [] [] Out of room [] Palliative care [] [] Receiving care in room [] Pre-surgical visit [] Trauma [] Long length of stay [] ICU visit [] Other: Relational/Emotional Strength [x] Patient feels connected with others/family/visitors/staff [] Distress [] Loneliness/isolation [] Abandonment Spirituality of Patient [x] Person of Shandra [] Attends Denominational of their Shandra [x] Believes in Prayer [] Reads Bible or Church materials [] There are Spiritual issues to be addressed [place] Interventions [x] Prayer [x] Active listening [] Non-anxious presence [x] Spiritual/emotional support [] Crisis/trauma care [] Spiritual counseling [] Bereavement support [] Provided bereavement packet [] Provided Bible/devotional materials [] Provided toy/stuffed animal, coloring book to patient or family member [] Provided Communion [] Anointing/[place] [] Salvation [x] Completed spiritual assessment [] Other: Impact on Illness or Injury [] Angry [] Fearful [] Anxious [] Often cries [] Exhaustion [] Unable to work [] Unable to attend anglican [] Unable to walk/stand [] Unable to read [] Unable to drive [] Unable to eat/drink [] Unable to sleep [] Unable to be with family [] Patient intubated [] Other: Summary Time spent with patient 5 min
--- NOTE | 2023-06-11 11:42 | P.DS_ITS ---
Discharge Providers Date of Admission: 06/09/23 15:31 Date of Discharge: June 11, 2023 Attending Provider at Admission: Junior Anders MD Attending Provider at Discharge: Sonja Cavazos MD Primary Care Provider: Portia Lawrence MD Diagnoses at Discharge Discharge Diagnosis (1) CAD (coronary artery disease): Status: Acute Qualifiers: Associated angina: angina presence unspecified Coronary Disease- Associated Artery/Lesion type: unspecified vessel or lesion type [place] vs. transplanted heart: [place] heart Qualified Code(s): I25.10 - Atherosclerotic heart disease of [place] coronary artery without angina pectoris (2) History of coronary artery bypass graft: Status: Acute (3) Hypertension: Status: Acute (4) Presence of stent in coronary artery in patient with coronary artery disease: Status: Acute (5) Chest pain: Status: Acute Reason for Visit Reason for Visit: abd pain Brief History: As per Dr. Anders Junior Andersen is a 72 year old male with past medical history significant for coronary artery disease status post CABG in 2004 and multiple PCI/stents (most recent in 12/2022), carotid artery stenosis status post bilateral endarterectomy, epilepsy, COPD, type 2 diabetes mellitus, hypertension, and chronic systolic heart failure with reduced ejection fraction who presents emergency department with abdominal pain x 2 to 3 days. He endorses associated symptoms of abdominal discomfort and hematemesis last night. He states he feels like he was a moderate amount of hematemesis. Endorses associated nausea. Denies aggravating or alleviating factors. In the emergency department, he was found to have mild leukocytosis and azotemia. CT scanning revealed mildly distended small bowel with increased fluid with findings concerning for infectious/inflammatory pathology versus small bowel ischemia. ED provider reportedly talked to radiologist with ischemia being low on differential. His lactate was normal. General surgery was consulted due to reported hematemesis. He is on aspirin 325 mg and Plavix. Hospital Course Hospital Course Patient was initially admitted for hematemesis with nausea and abdominal discomfort. During hospital stay his aspirin was held but Plavix was continued. He also complained of blood in stool however did not have evidence of that during hospital stay. He says he drinks well water. CT abdomen pelvis initially did show mildly distended small bowel with increased fluid wall and fold thickening. Increased colonic fluid without other colonic pathology. He was kept on ciprofloxacin and Flagyl during hospitalization. Patient underwent EGD which showed mild gastritis and healing ulcers. Patient will be sent home on Protonix 40 twice daily along with sucralfate. For now we will continue his aspirin and Plavix due to recent stent placement and give follow-up prescription but CBC as outpatient and close follow-up with cardiology. Patient will need to follow-up with general surgery as well. His abdominal pain has resolved. Hematemesis and bloody stool has also resolved. He was bradycardic and therefore toprol was reduced to 12.5 mg daily. Pt was also seen by cardiology. See cardio consult. Physical Exam Narrative: General: Patient is awake and alert. Pleasant. Cardiovascular: RRR. No gallops. No murmurs. Lungs: Breath sounds are manage bilateral bases, no use of accessory muscles, no crackles or wheezes. Abdomen: Bowel sounds are present. Abdomen nontender, soft, no rebound tenderness. Extremities: No cyanosis or clubbing. Discharge Data Studies Completed and Pending Completed Studies During Hospitalization Category Date Time Status CT abdomen pelvis w con* [id number] Stat Cat Scan 06/09/23 11:16 Completed XR chest 1V portable [id number] Stat Exams 06/09/23 11:16 Completed CV. echo complete* [id number] Stat Ultrasound 06/10/23 11:50 Completed Pending at discharge Category Date Time Status Escherichia Coli Culture Routine Lab 06/10/23 11:51 Received Giardia and Cryptosporidium Ag Routine Lab 06/10/23 11:50 Ordered Lactoferrin Routine Lab 06/10/23 11:50 Ordered Stool Culture - Enteric [Salmonella / Shigella / Campy] Lab 06/10/23 11:50 Received Routine Pathology: Surgical [PTH] Routine Pth 06/10/23 18:11 Received Radiology Impressions Abdomen/Pelvis CT 06/09/23 11:16 IMPRESSION: 1. Mildly distended small bowel with increased fluid, wall and fold thickening. Increased colonic fluid without other colonic pathology. Differential diagnosis includes infectious/inflammatory pathology and small bowel ischemia. 2. Mild ascites. 3. Minor findings as above. ADDENDUM: 06/09/23 [id number] THIS REPORT CONTAINS FINDINGS THAT MAY BE CRITICAL TO PATIENT CARE. The findings were verbally communicated via telephone conference with ADDISON MARSHALL at 1:00 PM GLOBAL CLIMATE CHANGE ANALYST on 06/09/2023. The findings were acknowledged and understood. Chest X-Ray 06/09/23 11:16 IMPRESSION: No acute pathology or significant interval change. Laboratory Results WBC 6.41 10^3/uL (3.29-11.43) 06/11/23 04:15 RBC 3.81 10^6/uL (3.85-5.65) L 06/11/23 04:15 Hgb 10.90 g/dL (11.27-16.99) L 06/11/23 04:15 Hct 34.4 % (37-53) L 06/11/23 04:15 MCV 90.3 fl (82-101) 06/11/23 04:15 MCH 28.6 pg (27-33) 06/11/23 04:15 MCHC 31.7 g/dL (30-55) 06/11/23 04:15 RDW 13.3 % (12.1-15.1) 06/11/23 04:15 Plt Count 121 10^3/cmm (157-399) L 06/11/23 04:15 MPV 11.3 fL (7.4-10.4) H 06/11/23 04:15 Neut % (Auto) 72.0 % 06/11/23 04:15 Lymph % (Auto) 12.8 % 06/11/23 04:15 [place] % (Auto) 11.7 % 06/11/23 04:15 Eos % (Auto) 2.8 % 06/11/23 04:15 Baso % (Auto) 0.5 % 06/11/23 04:15 Neut # (Auto) 4.62 10^3/uL (1.8-7.7) 06/11/23 04:15 Lymph # (Auto) 0.8 10^3/uL (0.8-4.8) 06/11/23 04:15 [place] # (Auto) 0.8 10^3/uL (0.2-0.9) 06/11/23 04:15 Eos # (Auto) 0.2 10^3/uL (0.0-0.8) 06/11/23 04:15 Baso # (Auto) 0.0 10^3/uL (0.0-0.1) 06/11/23 04:15 Nucleated RBC % (auto) 0 % 06/11/23 04:15 Nucleated RBCs # 0.0 /100WBC 06/11/23 04:15 Sodium 140 mmol/L (136-145) 06/11/23 04:15 Potassium 4.0 mmol/L (3.5-5.1) 06/11/23 04:15 Chloride 109 mmol/L (98-107) H 06/11/23 04:15 Carbon Dioxide 22 mmol/L (22-29) 06/11/23 04:15 Anion Gap 13.0 (5-19) 06/11/23 04:15 BUN 21 mg/dL (8-23) 06/11/23 04:15 Creatinine 1.4 mg/dL (0.7-1.2) H 06/11/23 04:15 GFR Calculation 50.1 mL/min (90-130) L 06/11/23 04:15 Glucose 196 mg/dL (65-115) H 06/11/23 04:15 POC Glucose 191 mg/dL (70-110) H 06/11/23 06:27 Calculated Osmolality 298 mOsm/kg (285-295) H 06/11/23 04:15 Lactic Acid 1.3 mmol/L (0.5-2.2) 06/09/23 11:30 Calcium 8.2 mg/dL (8.5-10.5) L 06/11/23 04:15 Phosphorus 3.3 mg/dL (2.5-4.5) 06/11/23 04:15 Magnesium 2.3 mg/dL (1.7-2.3) 06/11/23 04:15 Total Bilirubin 0.5 mg/dL (0.15-1.2) 06/11/23 04:15 AST 8 U/L (0-40) 06/11/23 04:15 ALT 6 U/L (0-41) 06/11/23 04:15 Alkaline Phosphatase 71 U/L (40-130) 06/11/23 04:15 Troponin T Baseline 25 ng/L (0-15) H 06/10/23 07:24 Troponin T 120 Minute 24.58 ng/L (0-15) H 06/10/23 09:08 Delta Troponin T -0.42 ABS# (0-10) L 06/10/23 09:08 Troponin T Hi Sens 6Hr 26.19 ng/L (0-15) H 06/10/23 13:32 Troponin T Hi Sens 6Hr Delta 1.19 ng/L (0-12) 06/10/23 13:32 Total Protein 6.1 g/dL (6.6-8.7) L 06/11/23 04:15 Albumin 3.2 g/dL (3.5-5.2) L 06/11/23 04:15 Globulin 2.9 g/dL (1.3-4.6) 06/11/23 04:15 Lipase 19 U/L (13-60) 06/09/23 11:30 Procalcitonin 0.11 ng/mL (0-0.5) 06/09/23 13:01 Urine Color Yellow (Yellow) 06/09/23 13:35 Urine Appearance Clear (CLEAR) 06/09/23 13:35 Urine pH 5 (5-7) 06/09/23 13:35 Ur Specific [place] 1.005 (1.005-1.030) 06/09/23 13:35 Urine Protein 1+ (Negative) H 06/09/23 13:35 Urine Glucose (UA) Norm (Normal) 06/09/23 13:35 Urine Ketones Negative (Negative) 06/09/23 13:35 Urine Blood Neg (Negative) 06/09/23 13:35 Urine Nitrate Negative (Negative) 06/09/23 13:35 Urine Bilirubin Neg (Negative) 06/09/23 13:35 Urine Urobilinogen 4 mg/dL (Negative) H 06/09/23 13:35 Ur Leukocyte Esterase Trace (Negative) H 06/09/23 13:35 Urine RBC None /hpf (0-2) 06/09/23 13:35 Urine WBC 0-4 /hpf (0-5) H 06/09/23 13:35 Ur Squamous Epith Cells 0-4 /hpf (0-5) H 06/09/23 13:35 Amorphous Sediment Not Reportable 06/09/23 13:35 Urine Bacteria Trace /hpf (NONE) 06/09/23 13:35 Vitals Last Vital Signs Temp 98.7 F 06/11/23 11:11 Pulse 70 06/11/23 11:11 Resp 17 06/11/23 11:11 BP 150/52 06/11/23 11:11 Pulse Ox 93 06/11/23 11:11 O2 Del Method Room Air 06/11/23 08:39 O2 Flow Rate 6 06/10/23 18:08 Discharge Plan Discharge Patient Disposition: Home Condition: Stable Prescriptions: New sucralfate 1 gram Tablet 1 g PO AC&BEDTIME 30 Days Qty: 60 0RF metoprolol succinate [Toprol XL] 25 mg tablet extended release 24 hr 12.5 mg PO DAILY Qty: 30 0RF pantoprazole [Protonix] 40 mg tablet,delayed release (DR/EC) 40 mg PO BID Qty: 60 0RF ciprofloxacin HCl 500 mg tablet 500 mg PO BID 5 Days Qty: 10 0RF metronidazole 500 mg tablet 500 mg PO TID 5 Days Qty: 15 0RF Continued topiramate [Topamax] 50 mg tablet 50 mg PO BID Qty: 60 6RF nitroglycerin 0.4 mg tablet, sublingual 0.4 mg sublingual Q5M PRN (Reason: chest pain) Qty: 30 6RF Rx Instructions: do not exceed 3 doses per episode tamsulosin 0.4 mg capsule 0.4 mg PO QPM fluticasone propion-salmeterol [Advair Diskus] 250-50 mcg/dose Blister With Device 1 inh INHALATION BID lisinopril 20 mg Tablet 10 mg PO QAM sennosides-docusate sodium [Senexon-S] 8.6-50 mg tablet 1 tab PO BID Rx Instructions: HOLD IF LOOSE STOOLS/DIARRHEA gabapentin 400 mg capsule 400 mg PO TID glucose 4 gram Tablet,Chewable 4 - 16 g PO Q15M PRN (Reason: Hypoglycemia) Rx Instructions: MAY REPEAT IF HYPOGLYCEMIA CONTINUES 15 MINUTES POST 1ST DOSE. polyethylene glycol 3350 [Miralax] 17 gram/dose Powder 17 g PO BID PRN (Reason: Constipation) cholecalciferol (vitamin D3) [Vitamin D3] 25 mcg (1,000 unit) Tablet 25 mcg PO TID melatonin 5 mg Tablet 5 mg PO BEDTIME omega 4-xul-ftt-fish oil [Fish Oil] 1,000 mg (120 mg-180 mg) Capsule 1 cap PO BID lidocaine 5 % Ointment 1 applic TOPICAL BID PRN (Reason: Pain) potassium chloride 20 mEq Tablet Extended Release 10 meq PO QAM folic acid 400 mcg tablet 400 mcg PO DAILY rosuvastatin 40 mg tablet 40 mg PO QPM insulin glargine 100 unit/mL (3 mL) Insulin Pen 100 unit SUBCUT BEDTIME PRN (Reason: BLOOD SUGAR) ipratropium-albuterol 20-100 mcg/actuation Mist 1 puff INHALATION QID clopidogrel 75 mg tablet 75 mg PO QAM Patient Comments: on hold for procedure furosemide 20 mg tablet 20 mg PO QAM Vitamin C 500 mg Tablet 500 mg PO BID insulin regular human 100 unit/mL (3 mL) Insulin Pen 20 unit SUBCUT TID Rx Instructions: PER SLIDING SCALE WITH MEALS Discontinued metoprolol succinate 50 mg tablet extended release 24 hr 50 mg PO BID Qty: 180 3RF aspirin 325 mg tablet 325 mg PO QAM Discharge Orders: Discharge Order (Routine); Ordered 06/11/23 Ordered By: Sonja Cavazos Referrals: Ge Mckenzie DO [Physician] - 2 weeks Luisito Barajas MD [Physician] - 7-10 days Portia Lawrence MD [Primary Care Provider] - 4-7 days Discharge Diet: Cardiac and Diabetic Discharge Activity: Resume usual activity Patient Instructions: GI Discharge Instructions, Opioid Safety Discharge Attestations Time Spent in Discharge Care*: greater than 30 min Quality Metrics Clinical Quality Measures [ No reported AMI, CVA or VTE this stay] Coding Level of Care Code 73141 Total time (in minutes) for Discharge: 31 Diagnoses Coronary artery disease involving [place] heart, angina presence unspecified, unspecified vessel or lesion type I25.10 Associated angina: angina presence unspecified Coronary Disease-Associated Artery/Lesion type: unspecified vessel or lesion type [place] vs. transplanted heart: [place] heart History of coronary artery bypass graft Z95.1 Hypertension I10 Presence of stent in coronary artery in patient with coronary artery disease I25.10; Z95.5 Chest pain R07.9
[2023-06-11 12:10] LABS: Glucose Point of Care 227 mg/dL (70-110)
[2023-06-11] MEDS: FUROsemide 40 mg Tablet PO (12:30)
--- NOTE | 2023-06-11 13:31 | PC.NURSE ---
Discharge Note Patient discharged to home via POV accompanied by spouse. Discharge instructions reviewed with patient and/or senior customer service representative. Mobile pharmacy medications and/or prescriptions provided. Belongings/home medications returned.
== END 2023-06-11 13:32 | disposition home or self-care (01) ==
LOC: ER 11:27 → CSU 14:31
PROVIDERS: Internal Medicine; Surgery; Admitting Provider Internal Medicine; Emergency Provider Family Medicine; PCP Family Medicine; Visit Provider Internal Medicine
PROC: 0DJ08ZZ Inspection of Upper Intestinal Tract, Via Natural or Artificial Opening Endoscopic (ICD-10-PCS; CPT 43235; principal; 2023-06-10 08:40)
DX: I25.10 Atherosclerotic heart disease of native coronary artery without angina pectoris (principal); Z95.1 Presence of aortocoronary bypass graft; Z95.5 Presence of coronary angioplasty implant and graft; R07.9 Chest pain, unspecified; E11.9 Type 2 diabetes mellitus without complications; I11.0 Hypertensive heart disease with heart failure; I50.20 Unspecified systolic (congestive) heart failure; Z79.82 Long term (current) use of aspirin; Z79.02 Long term (current) use of antithrombotics/antiplatelets; K92.1 Melena; K25.9 Gastric ulcer, unspecified as acute or chronic, without hemorrhage or perforation; R00.1 Bradycardia, unspecified; K29.50 Unspecified chronic gastritis without bleeding; K29.80 Duodenitis without bleeding; J44.9 Chronic obstructive pulmonary disease, unspecified; I25.2 Old myocardial infarction; E78.5 Hyperlipidemia, unspecified; E66.01 Morbid (severe) obesity due to excess calories; Z68.32 Body mass index [BMI] 32.0-32.9, adult; G47.33 Obstructive sleep apnea (adult) (pediatric); N40.1 Benign prostatic hyperplasia with lower urinary tract symptoms; N13.8 Other obstructive and reflux uropathy; F17.210 Nicotine dependence, cigarettes, uncomplicated
CPT/HCPCS: 36415; 36416; 43239; 71045; 74177; 80053; 81001; 82962; 83605; 83690; 83735; 84100; 84145; 84484; 85014; 85018; 85025; 87045; 87046; 87427; 87449; 88305; 88342; 93005; 93306; 94640; 96365; 96366; 96367; 96372; 96375; 96376; 99285; C9113; G0378; J0744; J1815; J2270; J2405; J2704; J3490; J7030; J7626; Q0163; Q9967

== ENCOUNTER 2023-06-16 19:08 | Inpatient (IN) | payer OTHER, SELFPAY ==
[2023-06-16] VITALS (20 sets, daily range): BP systolic 76–143; BP diastolic 33–58; PULSE 75–96; RESP 16–36; TEMP 36.4; O2SAT 79–97; BMI 33.5
--- NOTE | 2023-06-16 19:43 | CTR_ITS ---
PROCEDURE INFORMATION: Exam: CT Abdomen And Pelvis Without Contrast Exam date and time: 06/16/2023 8:24 PM Age: 72 years old Clinical indication: Abdominal pain; Generalized; Patient HX: Creatinine 4.0; Additional info: Abd pain gi bleeding HX TECHNIQUE: Imaging protocol: Computed tomography of the abdomen and pelvis without contrast. Radiation optimization: All CT scans at this facility use at least one of these dose optimization techniques: automated exposure control; mA and/or kV adjustment per patient size (includes targeted exams where dose is matched to clinical indication); or iterative reconstruction. COMPARISON: CT abdomen pelvis w con* [id number] 06/09/2023 12:36 PM RADIATION DOSE METRICS: Total DLP (mGy-cm): 1095.2 FINDINGS: Lungs: Bibasilar ground-glass atelectasis versus minimal infiltrate. Heart: Mild cardiomegaly. Coronary arteries: Coronary artery atherosclerotic calcifications. Liver: Normal. No mass. Gallbladder and bile ducts: Cholecystectomy. Pancreas: Normal. No ductal dilation. Spleen: Normal. No splenomegaly. Adrenal glands: Normal. No mass. Kidneys and ureters: Left kidney cyst, negative for follow-up advised. Stomach and bowel: Multiple dilated small bowel loops to 4.1 cm with fluid levels consistent with an obstruction, potentially high-grade, negative for transition point seen. Appendix: No evidence of appendicitis. Intraperitoneal space: Unremarkable. No free air. No significant fluid collection. Vasculature: Unremarkable. No abdominal aortic aneurysm. Lymph nodes: Unremarkable. No enlarged lymph nodes. Urinary bladder: Unremarkable as visualized. Reproductive: Unremarkable as visualized. Bones/joints: Unremarkable. No acute fracture. Soft tissues: Small bilateral fat containing inguinal hernias without bowel or inflammation. CT/CT abdomen pelvis wo con [id number] IMPRESSION: 1. Multiple dilated small bowel loops to 4.1 cm with fluid levels consistent with an obstruction, potentially high-grade, negative for transition point seen. 2. Small bilateral fat containing inguinal hernias without bowel or inflammation. 3. Bibasilar ground-glass atelectasis versus minimal infiltrate. 4. Mild cardiomegaly. 5. Coronary artery atherosclerotic calcifications. 6. Cholecystectomy. 7. Left kidney cyst, negative for follow-up advised.
[2023-06-16] MEDS: sodium chloride 0.9% 1,000 ML 999 ML IV ×3 (19:45→22:13)
[2023-06-16 19:48] LABS: Basophils % 0.3 %; Eosinophils # 0.1 10^3/uL (0.0-0.8); Eosinophils % 0.9 %; Hematocrit 41.1 % (37-53); Lymphocytes # 0.9 10^3/uL (0.8-4.8); Lymphocytes % 7.9 %; Mean Corpuscular HGB Conc 33.1 g/dL (30-55); Mean Corpuscular Hemoglobin 28.6 pg (27-33); Mean Corpuscular Volume 86.5 fl (82-101); Mean Platelet Volume 10.8 fL (7.4-10.4); Neutrophils # 9.46 10^3/uL (1.8-7.7); Neutrophils % 81.4 %; Nucleated Red Blood Cells % 0 %; Platelet Count 245 10^3/cmm (157-399); Red Blood Count 4.75 10^6/uL (3.85-5.65); Red Cell Distribution Width 13.4 % (12.1-15.1); White Blood Count 11.62 10^3/uL (3.29-11.43)
--- NOTE | 2023-06-16 19:53 | ED_ITS ---
HPI - GI Bleed 2 General: Chief complaint: GI Bleed Stated complaint: vomit blood [facility] 4 days Time Seen by Provider: 06/16/23 19:29 History of Present Illness: 72-year-old male, admitted last week for GI bleeding. Evidently an EGD was done, and a gastric mass was found and biopsied. His daughter brought him in tonight, because he is continue to vomit at home. He is vomiting liquids at this point. They have noticed some continued bleeding, although no passage or vomiting of clots. He has not had a fever. He developed some chest pressure this evening, which prompted him to want to come back. He is experiencing generalized abdominal pain as well. Associated symptoms: Denies abdominal pain, chills, fever(s), headache(s), nausea, rash or vomiting Review of Systems 2 Const: Denies: fever(s), chills or body aches Eyes: Denies: change in vision Card: Reports: edema Resp: Denies: dyspnea, productive cough, non-productive cough or wheezing GI: Denies: abdominal pain, nausea, vomiting, diarrhea or hematochezia Skin/Breast: Denies: rash Neuro: Denies: headache(s), weakness in extremities, dizziness or confusion PFSH ED 2 PFSH: Medical History (Updated 06/17/23 @ 00:24 by Mohit Alba DO) Tobacco abuse NSTEMI (non-ST elevated myocardial infarction) Systolic CHF with reduced left ventricular function, NYHA class 2 Bilateral carotid artery stenosis Erectile dysfunction Urinary retention Cutaneous wart Current smoker JENAE on CPAP Acute cystitis without hematuria Phimosis BPH NOS w ur obs/LUTS COPD (chronic obstructive pulmonary disease) Hypertension Diabetes Complex partial epilepsy with generalization Myocardial infarct Chronic headache CAD (coronary artery disease) Balanitis Surgical History (Updated 06/16/23 @ 23:33 by Sukhi Malagon MD) History of cardiac catheterization H/O heart artery stent S/P carotid endarterectomy H/O circumcision History of laparotomy History of appendectomy History of coronary artery bypass graft Family History Mother , at age 103 No problems noted. Father , at age 89 Congestive heart failure (CHF) Other CAD (coronary artery disease) Hypertension Mesothelioma Social History Smoking and tobacco/nicotine status: current every day tobacco/nicotine user cigarettes Packs smoked per day: 1.5 Years cigarettes smoked: 52 [ Other cigarette details: was 2ppd] Alcohol intake: never Substance/Drug Use: never Marital status: service: Yes Current occupational status: retired and disabled Do you think of yourself as: Straight/Heterosexual Physical Exam 2 Const: GENERAL APPEARANCE: cooperative, ill appearing and frail appearing HENMT: COMMON NORMALS: normocephalic, atraumatic and Normal external nose present HEAD & SCALP: normocephalic and atraumatic FACE & SINUS: normal facial exam NOSE: Normal external nose present Eye: COMMON NORMALS: Equal, round and reactive pupils present and EOMs intact bilaterally PUPIL: Yes Equal, round and reactive pupils present Chest: CHEST: Yes Symmetrical chest wall rise Resp: EFFORT & INSPECTION: Yes tachypneic AUSCULTATION: diminished lung sounds Cardio: COMMON NORMALS: regular rate and regular rhythm RATE: regular rate RHYTHM: regular rhythm GI: PALPATION: Yes Firmness to palpation present (GI), Yes Tenderness to palpation present (GI) and Yes Guarding due to palpation present (GI) Extremity: GENERAL: Yes edema Neuro: DARIO COMA SCALE: document GCS findings Dario coma scale eye opening: Spontaneous Dario coma scale verbal response: Orientated [place] coma scale motor response: Obey commands [place] coma scale total score: 15 Procedures Central Line Placement Right IJ: Time Out Performed: Yes Patient Placed on Monitor/Pulse Ox: Yes MD Prep: mask, gown and gloves Central Line Prep: Chlorhexidine scrub Local Anesthetic: lidocaine 1% Amount of anesthesia used (mL): 3 Ultrasound Used for Placement: Yes Central Line Lumen Inserted: triple Post Procedure: sutured in place, good blood return, all ports aspirated, flushed, capped and sterile dressing applied Post Procedure X-Ray: tip of catheter in good position and no pneumothorax seen Patient Tolerated Procedure: well and no complications Complications: none Course 2 Vital Signs: Vital signs: Vital Signs Temperature 97.5 F L 06/16/23 19:19 Pulse Rate 75 06/16/23 23:30 Respiratory Rate 27 H 06/16/23 23:30 Blood Pressure 121/48 06/16/23 23:30 Pulse Oximetry 95 06/16/23 23:30 [facility] - GI Bleed Medical Decision Making Patient has been hypotensive since arrival. Lowest pressure appears to be 70s systolic. He has consistently been in the 80s and 90s systolic. He has received 2 L of fluid now. he was not bolused for sepsis all at once to prevent flash pulmonary edema. His creatinine is 4, which is up from his baseline of 1.5. BUN 47. Sodium 128. His white blood cell count is 11.6. Interestingly his hemoglobin has risen to 13.6. His belly is firm. CT results are pending. CT shows a small bowel obstruction without clear transition point. Obstruction is classified as high-grade. Nasogastric tube was placed by nursing staff. No complication. Third liter bolus was ordered, which constitutes a 30 mL/kg bolus. He has continued to be hypotensive, so the patient was started on norepinephrine. His blood pressure is holding steady. Central line was placed without complication. NG tube was advanced based on chest x-ray findings following tube placement. He will go to the ICU. Surgery was consulted and has seen the patient in the ER. The hospitalist is seeing the patient as well. Lab Data 06/16/23 19:38 06/16/23 19:38 Radiology Impressions Abdomen/Pelvis CT 06/16/23 19:43 IMPRESSION: 1. Multiple dilated small bowel loops to 4.1 cm with fluid levels consistent with an obstruction, potentially high-grade, negative for transition point seen. 2. Small bilateral fat containing inguinal hernias without bowel or inflammation. 3. Bibasilar ground-glass atelectasis versus minimal infiltrate. 4. Mild cardiomegaly. 5. Coronary artery atherosclerotic calcifications. 6. Cholecystectomy. 7. Left kidney cyst, negative for follow-up advised. ADDENDUM: 06/16/23 [id number] THIS REPORT CONTAINS FINDINGS THAT MAY BE CRITICAL TO PATIENT CARE. The findings were verbally communicated via telephone conference with MOHIT ALBA at 9:45 PM CORROSION CONTROL FITTER on 06/16/2023. The findings were acknowledged and understood. Additional concerning for a gastric mass was raised. We discussed a large amount of enteric contents are seen, suggestive of fluid, please correlate clinically. Negative for definite mass in the stomach. Chest X-Ray 06/16/23 23:22 IMPRESSION: 1. Right central venous catheter tip over the right atrium. 2. Enteric tube tip below the diaphragm in the upper stomach, consider advancement. 3. Cardiomegaly. 4. Sternotomy wires. Laboratory Results WBC 11.62 10^3/uL (3.29-11.43) H 06/16/23 19:38 RBC 4.75 10^6/uL (3.85-5.65) 06/16/23 19:38 Hgb 13.60 g/dL (11.27-16.99) 06/16/23 19:38 Hct 41.1 % (37-53) 06/16/23 19:38 MCV 86.5 fl (82-101) 06/16/23 19:38 MCH 28.6 pg (27-33) 06/16/23 19:38 MCHC 33.1 g/dL (30-55) 06/16/23 19:38 RDW 13.4 % (12.1-15.1) 06/16/23 19:38 Plt Count 245 10^3/cmm (157-399) 06/16/23 19:38 MPV 10.8 fL (7.4-10.4) H 06/16/23 19:38 Neut % (Auto) 81.4 % 06/16/23 19:38 Lymph % (Auto) 7.9 % 06/16/23 19:38 [place] % (Auto) 9.0 % 06/16/23 19:38 Eos % (Auto) 0.9 % 06/16/23 19:38 Baso % (Auto) 0.3 % 06/16/23 19:38 Neut # (Auto) 9.46 10^3/uL (1.8-7.7) H 06/16/23 19:38 Lymph # (Auto) 0.9 10^3/uL (0.8-4.8) 06/16/23 19:38 [place] # (Auto) 1.0 10^3/uL (0.2-0.9) H 06/16/23 19:38 Eos # (Auto) 0.1 10^3/uL (0.0-0.8) 06/16/23 19:38 Baso # (Auto) 0.0 10^3/uL (0.0-0.1) 06/16/23 19:38 Nucleated RBC % (auto) 0 % 06/16/23 19:38 Nucleated RBCs # 0.0 /100WBC 06/16/23 19:38 PT 14.00 SECONDS (12.1-14.9) 06/16/23 19:38 INR 1.05 (0.8-1.2) 06/16/23 19:38 Sodium 128 mmol/L (136-145) L 06/16/23 19:38 Potassium 4.1 mmol/L (3.5-5.1) 06/16/23 19:38 Chloride 94 mmol/L (98-107) L 06/16/23 19:38 Carbon Dioxide 22 mmol/L (22-29) 06/16/23 19:38 Anion Gap 16.1 (5-19) 06/16/23 19:38 BUN 47 mg/dL (8-23) H 06/16/23 19:38 Creatinine 4.0 mg/dL (0.7-1.2) H 06/16/23 19:38 GFR Calculation 14.9 mL/min (90-130) L 06/16/23 19:38 Glucose 225 mg/dL (65-115) H 06/16/23 19:38 Calculated Osmolality 285 mOsm/kg (285-295) 06/16/23 19:38 Lactic Acid 1.2 mmol/L (0.5-2.2) 06/16/23 19:36 Calcium 8.9 mg/dL (8.5-10.5) 06/16/23 19:38 Total Bilirubin 0.6 mg/dL (0.15-1.2) 06/16/23 19:38 AST 18 U/L (0-40) 06/16/23 19:38 ALT 15 U/L (0-41) 06/16/23 19:38 Alkaline Phosphatase 82 U/L (40-130) 06/16/23 19:38 Total Protein 7.5 g/dL (6.6-8.7) 06/16/23 19:38 Albumin 4.1 g/dL (3.5-5.2) 06/16/23 19:38 Globulin 3.4 g/dL (1.3-4.6) 06/16/23 19:38 Blood Type O Positive 06/16/23 19:36 Rho(D) Type Rh positive 03/03/24 19:36 Antibody Screen Negative 06/16/23 19:36 Cold Antibody Screen Positive 06/16/23 19:36 All radiology interpretation(s) finalized by discharge Critical Care Time 2 Critical Care Time: Critical Care Time: Yes Total Critical Care Time: 40 Attestation: This case had a high probability of a clinically significant, sudden, or life threatening deterioration of this patient's condition which required my full and direct attention, intervention and personal management. Time does not include procedures performed such as central line placement. Discharge Plan Discharge Patient Disposition: Admitted As Inpatient Admit Provider: Sukhi Malagon Clinical Impression: VIGNESH (acute kidney injury), Small bowel obstruction, Hypovolemic shock Condition: Critical Coding Level of Care Code ED Heating Mechanic for Selin Murillo
[2023-06-16 20:01] LABS: INR 1.05 (0.8-1.2)
[2023-06-16 20:06] LABS: Alanine Aminotransferase 15 U/L (0-41); Albumin Level 4.1 g/dL (3.5-5.2); Alkaline Phosphatase 82 U/L (40-130); Anion Gap 16.1 (5-19); Aspartate Amino Transferase 18 U/L (0-40); Blood Urea Nitrogen 47 mg/dL (8-23); Calcium 8.9 mg/dL (8.5-10.5); Carbon Dioxide 22 mmol/L (22-29); Chloride 94 mmol/L (98-107); Creatinine Clr Calc Pharmacy 21.5651; Globulin 3.4 g/dL (1.3-4.6); Glomerular Filtration Rate 14.9 mL/min (90-130); Glucose 225 mg/dL (65-115); Osmolality Calculated 285 mOsm/kg (285-295); Potassium 4.1 mmol/L (3.5-5.1); Sodium 128 mmol/L (136-145); Total Bilirubin 0.6 mg/dL (0.15-1.2); Total Protein 7.5 g/dL (6.6-8.7)
[2023-06-16] MEDS: morphine 4 mg/mL SDV 1 mL 2 MG IVP (20:32)
[2023-06-16] MEDS: ondansetron 2 mg/ML SDV 2 mL 4 MG IVP ×2 (20:39→22:52)
[2023-06-16] MEDS: norepinephrine 4 MG/250 ML BAG 7.5 MG IV (20:59)
[2023-06-16 21:28] LABS: Lactic Sepsis W/Reflex 1.2 mmol/L (0.5-2.2)
--- NOTE | 2023-06-16 22:37 | P.CONIM_ITS ---
Providers/Reason For Consult 2 Consulting Physician/Specialty*: General surgery Reason for Consult*: Small bowel obstruction Primary Care Provider: Portia Lawrence MD History of Present Illness History of Present Illness Junior Andersen is a 72 year old male who was recently admitted to the hospital with possible upper GI bleeding and abdominal pain. He got an endoscopy that showed no evidence of active bleeding and he was discharged on 06/11, after discharge patient has continued to have abdominal pain, nausea and vomit. He has has been unable to tolerate diet. Per patient report his last bowel movement was more than 10 days ago and he has not been passing gas in about the same amount of time. Workup in the emergency department revealed a elevated WBC, acute kidney injury and a CT scan of the abdomen concerning for small bowel obstruction. Of note this was not seen on the last CT scan of the abdomen done on June 09. Review of Systems 2 General: Reports: 10 or more systems reviewed and unremarkable except in HPI and below Medications/Allergies Home Medications Medication Instructions Recorded Confirmed Last Taken Type topiramate 50 mg tablet (Topamax) 50 mg PO BID #60 tabs 07/07/19 06/09/23 06/09/23 Rx tamsulosin 0.4 mg capsule 0.4 mg PO QPM BPH 12/06/20 06/09/23 06/08/23 History cholecalciferol (vitamin D3) 25 25 mcg PO TID 12/13/22 06/09/23 06/09/23 History mcg (1,000 unit) tablet (Vitamin D3) fluticasone 250 mcg-salmeterol 50 1 inh inhalation BID 12/13/22 06/09/23 06/09/23 History mcg/dose blistr powdr for inhalation (Advair Diskus) gabapentin 400 mg capsule 400 mg PO TID 12/13/22 06/09/23 06/09/23 History glucose 4 gram chewable tablet 4 - 16 g PO Q15M PRN Hypoglycemia 12/13/22 06/09/23 Unknown History lidocaine 5 % topical ointment 1 applic topical BID PRN Pain 12/13/22 06/09/23 Unknown History lisinopril 20 mg tablet 10 mg PO QAM 12/13/22 06/09/23 06/09/23 History melatonin 5 mg tablet 5 mg PO BEDTIME 12/13/22 06/09/23 06/08/23 History omega 1-dpj-pne-fish oil 1,000 mg 1 cap PO BID 12/13/22 06/09/23 06/09/23 History (120 mg-180 mg) capsule (Fish Oil) polyethylene glycol 3350 17 17 g PO BID PRN Constipation 12/13/22 06/09/23 Unknown History gram/dose oral powder (Miralax) potassium chloride 20 mEq 10 meq PO QAM 12/13/22 06/09/23 06/09/23 History tablet,extended release sennosides 8.6 mg-docusate sodium 1 tab PO BID 12/13/22 06/09/23 Unknown History 50 mg tablet (Senexon-S) nitroglycerin 0.4 mg sublingual 0.4 mg sublingual Q5M PRN chest 02/25/23 06/09/23 Unknown Rx tablet pain #30 tabs clopidogrel 75 mg tablet 75 mg PO QAM 04/19/23 06/09/23 06/09/23 History folic acid 400 mcg tablet 400 mcg PO DAILY 04/19/23 06/09/23 06/09/23 History furosemide 20 mg tablet 20 mg PO QAM 04/19/23 06/09/23 06/09/23 History insulin glargine 100 unit/mL (3 100 unit SUBCUT BEDTIME PRN BLOOD 04/19/23 06/09/23 06/08/23 History mL) subcutaneous pen SUGAR ipratropium 20 mcg-albuterol 100 1 puff inhalation QID 04/19/23 06/09/23 06/09/23 History mcg/actuation mist for inhalation rosuvastatin 40 mg tablet 40 mg PO QPM 04/19/23 06/09/23 06/08/23 History ascorbic acid (vitamin C) 500 mg 500 mg PO BID 06/09/23 06/09/23 06/09/23 History tablet (Vitamin C) insulin regular human 100 unit/mL 20 unit SUBCUT TID 06/09/23 06/09/23 06/09/23 History (3 mL) subcutaneous pen metoprolol succinate 25 mg 12.5 mg (1/2 x 25 mg) PO DAILY #30 06/11/23 Unknown Rx tablet,extended release 24 hr tabs (Toprol XL) pantoprazole 40 mg tablet,delayed 40 mg PO BID #60 tabs 06/11/23 Unknown Rx release (Protonix) sucralfate 1 gram tablet 1 g PO AC&BEDTIME 30 days #60 tabs 06/11/23 Unknown Rx Allergies Allergy/AdvReac Type Severity Reaction Status Date / Time adhesive tape Allergy ALGY-Rash Verified 06/09/23 11:04 Current Medications Generic Name Dose Route Start Last Admin Trade Name Freq PRN Reason Stop Dose Admin norepinephrine 4 mg in 250 mls @ 0 mls/hr 06/16/23 19:45 06/16/23 21:09 Levophed IV 4 mcg/min .Q0M TORSTEN 15 mls/hr Titration Protocol Per Protocol Sodium Chloride 1,000 mls @ 999 mls/hr 06/16/23 22:01 06/16/23 22:13 Sodium Chloride 0.9% IV 06/16/23 23:01 999 mls/hr .Q1H1M ONE Administration PFSH Acute 2 PFSH: Medical History Tobacco abuse NSTEMI (non-ST elevated myocardial infarction) Systolic CHF with reduced left ventricular function, NYHA class 2 Bilateral carotid artery stenosis Erectile dysfunction Urinary retention Cutaneous wart Current smoker JENAE on CPAP Acute cystitis without hematuria Phimosis BPH NOS w ur obs/LUTS COPD (chronic obstructive pulmonary disease) Hypertension Diabetes Complex partial epilepsy with generalization Myocardial infarct Chronic headache CAD (coronary artery disease) Balanitis Surgical History H/O heart artery stent S/P carotid endarterectomy H/O circumcision History of laparotomy History of appendectomy History of coronary artery bypass graft Family History Mother , at age 103 No problems noted. Father , at age 89 Congestive heart failure (CHF) Other CAD (coronary artery disease) Hypertension Mesothelioma Social History Smoking and tobacco/nicotine status: current every day tobacco/nicotine user cigarettes Packs smoked per day: 1.5 Years cigarettes smoked: 52 [ Other cigarette details: was 2ppd] Alcohol intake: never Substance/Drug Use: never Marital status: service: Yes Current occupational status: retired and disabled Do you think of yourself as: Straight/Heterosexual Vitals/I&O/Wt Last Vital Signs Temp 97.5 F L 06/16/23 19:19 Pulse 80 06/16/23 22:00 Resp 28 H 06/16/23 22:00 BP 122/49 06/16/23 22:15 Pulse Ox 94 06/16/23 22:00 06/16/23 06/16/23 06/16/23 06:59 14:59 22:59 Intake Total Balance Weight last 48 hrs Weight 240 lb Physical Exam 2 Narrative: General : Patient is well developed , no acute distress, oriented x3 Head : Normal cephalic, a-traumatic. Nose : Mucous membranes are without erythema. Lungs : Equal chest rise bilaterally, no use of accessory muscles, trachea is midline. CV : Rate and rhythm are normal. Abdomen : Soft, there is tenderness to palpation especially in the right hemiabdomen, there is no rebound tenderness, no peritoneal signs Data 06/16/23 19:38 06/16/23 19:38 A&P Assessment and plan (1) Small bowel obstruction: Plan After a complete history, physical examination and review of all available clinical data the following is my assessment. This is a 72-year-old male who presents to the hospital with suspected a small bowel obstruction. He also had a recent hospitalization for upper GI bleeding with negative upper endoscopy at that moment a CT scan of the abdomen was done which showed evidence of thickening of the small bowel but no evidence of obstruction or dilation. During my interview today patient states that he has not been able to pass gas or have bowel movement on a very long period of time. Per my independent review of the CT scan of the abdomen and pelvis, there is diffuse dilation of the small bowel, no evident transition point. There is distal gas indicating the possibility of partial small bowel obstruction. Lactate level is normal. There is no other signs or symptoms concerning for bowel ischemia. My recommendation will be for NG tube decompression for the next 48 hours, after which we can proceed with a Gastrografin trial. Patient also requires aggressive resuscitation and correction of the electrolyte imbalances. All other management per medical team. I have explained to the patient and the family member that in the case of failure to progress patient may require an exploratory laparotomy, I have explained to the patient and family member that this procedure may carry a very high risk of morbidity or mortality due to the patient history of previous abdominal operations and significant comorbidities. -NG tube decompression -N.p.o. -Correction of electrolyte imbalances -Correction of acute kidney injury -All other management per primary team. Coding Level of Care Code 04612 Diagnoses Small bowel obstruction K56.609
--- NOTE | 2023-06-16 23:22 | XRR_ITS ---
PROCEDURE INFORMATION: Exam: XR Chest Exam date and time: 06/16/2023 11:33 PM Age: 72 years old Clinical indication: Device placement; Other: Central line plcmt; Additional info: Confirm central line placement TECHNIQUE: Imaging protocol: Radiologic exam of the chest. Views: 1 view. COMPARISON: CR (CHEST, ) 06/09/2023 11:44 AM FINDINGS: Tubes, catheters and devices: Right central venous catheter tip over the right atrium. Enteric tube tip below the diaphragm in the upper stomach, consider advancement. Lungs: Unremarkable. No consolidation. Pleural spaces: Unremarkable. No pleural effusion. No pneumothorax. Heart/Mediastinum: Cardiomegaly. Bones/joints: Sternotomy wires. XR/XR chest 1V portable [id number] IMPRESSION: 1. Right central venous catheter tip over the right atrium. 2. Enteric tube tip below the diaphragm in the upper stomach, consider advancement. 3. Cardiomegaly. 4. Sternotomy wires.
--- NOTE | 2023-06-16 23:28 | P.HP_ITS ---
Providers/Chief Complaint 2 Primary Care Provider: Portia aLwrence MD Chief Complaint: vomit blood [facility] History of Present Illness Pleasant 72-year-old gentleman with history of CAD, CABG, stenting, recently admitted after hematemesis, nausea and abdominal discomfort, chest pain, was assessed by cardiology, pain was found to be rather atypical, without suggestion of ACS, aspirin was held, he was continued on Plavix. CT abdomen pelvis showed some dilated bowels. Underwent EGD which found some mild gastritis and healing ulcers. He was discharged on 06/11 with Protonix, sucralfate. Metoprolol was reduced to 12.5 mg daily due to bradycardia. He returns to the hospital due to abdominal pain, nausea, vomiting, with blood mixed into the vomitus, some coffee-ground mixed into the vomitus, no bowel movement in over 2 days, not passing flatus. Abdomen distended. CT scan in ER he is afebrile, leukocytosis 11.6, sodium 128, BUN 47, creatinine 4, baseline around 1.4, CT abdomen pelvis with multiple dilated small bowel loops to 4.1 cm with fluid levels consistent with obstruction, potentially high-grade, negative transition point. Small bilateral fat-containing inguinal hernias without bowel or inflammation. Bibasilar groundglass atelectasis versus minimal infiltrate. Mild cardiomegaly. Coronary atherosclerosis. Cholecystectomy. Left kidney cyst, negative for follow-up advised. NGT was is placed. Surgery consulted. Review of Systems 2 Const: Denies: fever(s) Card: Denies: chest pain, edema, pre-syncope or dyspnea on exertion Resp: Denies: dyspnea, productive cough, change in phlegm color or hemoptysis GI: Reports: abdominal pain, nausea, vomiting, hematemesis, coffee ground emesis and bloating; Denies: diarrhea, constipation, hematochezia or melena Medications/Allergies Home Medications Medication Instructions Recorded Confirmed Last Taken Type topiramate 50 mg tablet (Topamax) 50 mg PO BID #60 tabs 07/07/19 06/09/23 06/09/23 Rx tamsulosin 0.4 mg capsule 0.4 mg PO QPM BPH 12/06/20 06/09/23 06/08/23 History cholecalciferol (vitamin D3) 25 25 mcg PO TID 12/13/22 06/09/23 06/09/23 History mcg (1,000 unit) tablet (Vitamin D3) fluticasone 250 mcg-salmeterol 50 1 inh inhalation BID 12/13/22 06/09/23 06/09/23 History mcg/dose blistr powdr for inhalation (Advair Diskus) gabapentin 400 mg capsule 400 mg PO TID 12/13/22 06/09/23 06/09/23 History glucose 4 gram chewable tablet 4 - 16 g PO Q15M PRN Hypoglycemia 12/13/22 06/09/23 Unknown History lidocaine 5 % topical ointment 1 applic topical BID PRN Pain 12/13/22 06/09/23 Unknown History lisinopril 20 mg tablet 10 mg PO QAM 12/13/22 06/09/23 06/09/23 History melatonin 5 mg tablet 5 mg PO BEDTIME 12/13/22 06/09/23 06/08/23 History omega 5-byu-cwb-fish oil 1,000 mg 1 cap PO BID 12/13/22 06/09/23 06/09/23 History (120 mg-180 mg) capsule (Fish Oil) polyethylene glycol 3350 17 17 g PO BID PRN Constipation 12/13/22 06/09/23 Unknown History gram/dose oral powder (Miralax) potassium chloride 20 mEq 10 meq PO QAM 12/13/22 06/09/23 06/09/23 History tablet,extended release sennosides 8.6 mg-docusate sodium 1 tab PO BID 12/13/22 06/09/23 Unknown History 50 mg tablet (Senexon-S) nitroglycerin 0.4 mg sublingual 0.4 mg sublingual Q5M PRN chest 02/25/23 06/09/23 Unknown Rx tablet pain #30 tabs clopidogrel 75 mg tablet 75 mg PO QAM 04/19/23 06/09/23 06/09/23 History folic acid 400 mcg tablet 400 mcg PO DAILY 04/19/23 06/09/23 06/09/23 History furosemide 20 mg tablet 20 mg PO QAM 04/19/23 06/09/23 06/09/23 History insulin glargine 100 unit/mL (3 100 unit SUBCUT BEDTIME PRN BLOOD 04/19/23 06/09/23 06/08/23 History mL) subcutaneous pen SUGAR ipratropium 20 mcg-albuterol 100 1 puff inhalation QID 04/19/23 06/09/23 06/09/23 History mcg/actuation mist for inhalation rosuvastatin 40 mg tablet 40 mg PO QPM 04/19/23 06/09/23 06/08/23 History ascorbic acid (vitamin C) 500 mg 500 mg PO BID 06/09/23 06/09/23 06/09/23 History tablet (Vitamin C) insulin regular human 100 unit/mL 20 unit SUBCUT TID 06/09/23 06/09/23 06/09/23 History (3 mL) subcutaneous pen metoprolol succinate 25 mg 12.5 mg (1/2 x 25 mg) PO DAILY #30 06/11/23 Unknown Rx tablet,extended release 24 hr tabs (Toprol XL) pantoprazole 40 mg tablet,delayed 40 mg PO BID #60 tabs 06/11/23 Unknown Rx release (Protonix) sucralfate 1 gram tablet 1 g PO AC&BEDTIME 30 days #60 tabs 06/11/23 Unknown Rx Allergies Allergy/AdvReac Type Severity Reaction Status Date / Time adhesive tape Allergy ALGY-Rash Verified 06/09/23 11:04 PFSH Acute 2 PFSH: Medical History (Updated 06/16/23 @ 23:35 by Sukhi Malagon MD) Tobacco abuse NSTEMI (non-ST elevated myocardial infarction) Systolic CHF with reduced left ventricular function, NYHA class 2 Bilateral carotid artery stenosis Erectile dysfunction Urinary retention Cutaneous wart Current smoker JENAE on CPAP Acute cystitis without hematuria Phimosis BPH NOS w ur obs/LUTS COPD (chronic obstructive pulmonary disease) Hypertension Diabetes Complex partial epilepsy with generalization Myocardial infarct Chronic headache CAD (coronary artery disease) Balanitis Surgical History (Updated 06/16/23 @ 23:33 by Sukhi Malagon MD) History of cardiac catheterization H/O heart artery stent S/P carotid endarterectomy H/O circumcision History of laparotomy History of appendectomy History of coronary artery bypass graft Family History Mother , at age 103 No problems noted. Father , at age 89 Congestive heart failure (CHF) Other CAD (coronary artery disease) Hypertension Mesothelioma Social History Smoking and tobacco/nicotine status: current every day tobacco/nicotine user cigarettes Packs smoked per day: 1.5 Years cigarettes smoked: 52 [ Other cigarette details: was 2ppd] Alcohol intake: never Substance/Drug Use: never Marital status: service: Yes Current occupational status: retired and disabled Do you think of yourself as: Straight/Heterosexual Vitals/I&O/Wt Last Vital Signs Temp 97.5 F L 06/16/23 19:19 Pulse 80 06/16/23 22:00 Resp 28 H 06/16/23 22:00 BP 122/49 06/16/23 22:15 Pulse Ox 94 06/16/23 22:00 06/16/23 06/16/23 06/17/23 14:59 22:59 06:59 Intake Total Balance Weight last 48 hrs Weight 108.862 kg Physical Exam 2 Narrative: Accompanied by his daughter. Const: COMMON NORMALS: patient oriented x3 and alert GENERAL APPEARANCE: c ooperative ORIENTATION/CONSCIOUSNESS: Yes awake HENMT: COMMON NORMALS: oropharynx normal Neck/C-Spine: COMMON NORMALS: no JVD Resp: COMMON NORMALS: normal respiratory effort and clear to auscultation bilaterally AUSCULTATION: clear to auscultation bilaterally Cardio: COMMON NORMALS: no JVD, regular rhythm, S1 normal heart sound present, S2 normal heart sound present and No murmurs present (Cardio) RHYTHM: regular rhythm HEART SOUNDS: S1 normal heart sound present and S2 normal heart sound present GI: INSPECTION: Yes abdominal distension PALPATION: Yes Soft to palpation and Yes Tenderness to palpation present (GI) Extremity: COMMON NORMALS: no joint enlargement and no pedal edema Neuro: COMMON NORMALS: patient oriented x3 and moves all extremities S ENSORIUM/ORIENTATION: Yes alert Skin: COMMON NORMALS: no rashes or lesions noted GENERAL SKIN EXAM: no rashes or lesions noted Data 06/16/23 19:38 06/16/23 19:38 A&P Assessment and plan (1) Small bowel obstruction: Small bowel obstruction with abdominal distention, nausea, vomiting, unable to tolerate food drink or medications. Obstruction noted on CT without definitive transition point. Possibly high-grade. NGT has been placed for decompression. NPO. With dehydration, VIGNESH, hypovolemic shock, continue rehydration, requiring pressor currently as well. Reviewed vitals, CBC, INR, CMP, CT abdomen pelvis, ER note, discussed with ER physician. Surgery has been consulted, reviewed surgery note. Monitor volume status. Reviewed echocardiogram. Reassess chemistry with at risk of electrolyte imbalance with NG decompression, reassess kidney function, at risk of renal dysfunction. Conservative management at the moment with possible surgical exploration in case of lack of progress. (2) Hematemesis: Reported some blood and some coffee-ground contents mixed into vomitus. Recent EGD with some gastritis, ulcer. Continue PPI IV twice daily. Bowel rest at this time. There is no hoang blood or coffee-ground contents in the NGT currently decompressing the stomach, some biliary colored, contents. Doubt upper GI bleed, but possible [place] tear. Monitor. He is off aspirin. Will continue Plavix for A-fib as tolerated As discussed with him and his daughter, at risk of bleeding, but also risk of cardiac complication with discontinuation, and currently no evidence of any significant or persistent bleeding. Follow-up blood counts requested. SCD only for VTE prophylaxis for now. (3) Hypovolemic shock: Hypotensive despite initial fluid resuscitation, requiring pressor, continue Levophed, central line is being obtained in ER. Additional fluid boluses requested. To monitor hemodynamic condition, volume status. Reviewed echocardiogram. (4) CAD (coronary artery disease): With recent GI bleeding, was taken off aspirin, continue Plavix, discussed risks with him and family. Hold beta-theresa due to hypotension. Qualifiers: Coronary Disease-Associated Artery/Lesion type: unspecified vessel or lesion type [place] vs. transplanted heart: [place] heart Associated angina: a ngina presence unspecified Qualified Code(s): I25.10 - Atherosclerotic heart disease of [place] coronary artery without angina pectoris (5) VIGNESH (acute kidney injury): VIGNESH, creatinine up to 4, BUN 47, suspected prerenal with hypovolemia, hypotension, also on lisinopril. Hold. Hold antihypertensives. Resuscitation as above. Monitor hemodynamics. Check CK. (6) Hyponatremia: Hypovolemic hyponatremia with vomiting, no oral intake, receiving fluid resuscitation. Follow-up chemistry requested. Plan Systolic congestive heart failure: Not in exacerbation Diabetes: Bowel rest at current time, Accu-Cheks, insulin Lantus 5 unnits, sliding scale HTN: Monitor blood pressures, currently hypovolemic shock requiring pressor. Hold antihypertensives. Smoking addiction: Encourage cessation. Nicotine replacement as needed. Carotid artery stenosis JENAE normally on CPAP: Currently with bowel obstruction, abdominal distention, NGT, hold off for now BPH: Flomax COPD: Currently not in exacerbation, breathing treatments. Budesonide. Other medical problems. Requesting medications to be confirmed, please review and reconcile once available. Attestations 2 Medical Necessity Statement*: Admission of over 2 midnights anticipated for assessment of management of small bowel obstruction, hypovolemic shock, hematemesis, VIGNESH, hyponatremia, hematoma with additional medical problems as above. Coding Level of Care Code Critical Care >/= 30 minutes Critical care time (in minutes): 35 The high probability of a clinically significant, sudden or life threatening deterioration, as referenced in this documentation, required my full and direct attention, intervention and personal management. The critical care time shown is in addition to time spent performing any reported separately billable procedures and includes the following: [x] Data and vital sign review and interpretation [x ] Patient assessment, examination and intervention [x] Medication orders and management [x] Patient/Family updates as able [x] Care Coordination and Documentation. Diagnoses Small bowel obstruction K56.609 Hematemesis K92.0 Hypovolemic shock R57.1 Coronary artery disease involving [place] heart, angina presence unspecified, unspecified vessel or lesion type I25.10 Coronary Disease-Associated Artery/Lesion type: unspecified vessel or lesion type [place] vs. transplanted heart: [place] heart Associated angina: angina presence unspecified VIGNESH (acute kidney injury) N17.9 Hyponatremia E87.1
[2023-06-16] MEDS: cetacaine Spray 5 gm Can 5 SPRAY (23:35)
[2023-06-17] VITALS (99 sets, daily range): BP systolic 93–160; BP diastolic 37–80; PULSE 52–99; RESP 10–28; TEMP 36.7–37.1; O2SAT 80–99; BMI 33.7
[2023-06-17 00:51] LABS: Glucose Point of Care 190 mg/dL (70-110)
[2023-06-17] MEDS: pantoprazole 40 mg SDV IVP ×2 (00:54→13:12)
[2023-06-17] MEDS: morphine 4 mg/mL SDV 1 mL 2 MG IVP ×3 (00:54→08:48)
[2023-06-17] MEDS: lactated ringers 1,000 ML 100 ML IV ×3 (00:54→20:05)
[2023-06-17] MEDS: insulin lispro 100 unit/1 mL SUBCUT (00:56)
[2023-06-17] MEDS: insulin glargine 100 units/1 mL 5 UNIT SUBCUT ×2 (01:09→22:32)
--- NOTE | 2023-06-17 01:40 | PC.NURSE ---
Patient requesting medication to help with sleep, takes melatonin at home, not available at hospital. Dr. Malagon was called and gave verbal order for 0.25 mg ativan IVP ONCE. Additionally order received to keep NG tube at low intermittent suction.
[2023-06-17] MEDS: LORazepam 2 mg/mL INJ 10 mL MDV 0.25 MG IVP (02:32)
[2023-06-17 04:37] LABS: Basophils % 0.4 %; Eosinophils # 0.2 10^3/uL (0.0-0.8); Eosinophils % 2.2 %; Hematocrit 34.6 % (37-53); Lymphocytes # 0.9 10^3/uL (0.8-4.8); Lymphocytes % 11.3 %; Mean Corpuscular HGB Conc 32.1 g/dL (30-55); Mean Corpuscular Hemoglobin 28.5 pg (27-33); Mean Corpuscular Volume 88.7 fl (82-101); Mean Platelet Volume 10.8 fL (7.4-10.4); Neutrophils # 5.66 10^3/uL (1.8-7.7); Neutrophils % 72.6 %; Nucleated Red Blood Cells % 0 %; Platelet Count 168 10^3/cmm (157-399); Red Cell Distribution Width 13.4 % (12.1-15.1); White Blood Count 7.79 10^3/uL (3.29-11.43)
[2023-06-17 05:05] LABS: Alanine Aminotransferase 12 U/L (0-41); Albumin Level 3.3 g/dL (3.5-5.2); Alkaline Phosphatase 73 U/L (40-130); Anion Gap 12.1 (5-19); Aspartate Amino Transferase 16 U/L (0-40); Blood Urea Nitrogen 43 mg/dL (8-23); Calcium 7.7 mg/dL (8.5-10.5); Carbon Dioxide 25 mmol/L (22-29); Chloride 104 mmol/L (98-107); Creatinine Clr Calc Pharmacy 26.2631; Globulin 2.8 g/dL (1.3-4.6); Glomerular Filtration Rate 18.6 mL/min (90-130); Glucose 130 mg/dL (65-115); Magnesium 2.2 mg/dL (1.7-2.3); Osmolality Calculated 297 mOsm/kg (285-295); Potassium 4.1 mmol/L (3.5-5.1); Sodium 137 mmol/L (136-145); Total Bilirubin 0.4 mg/dL (0.15-1.2); Total Protein 6.1 g/dL (6.6-8.7)
[2023-06-17 05:07] LABS: Creatine Phosphokinase 54 U/L (39-308)
[2023-06-17 05:35] LABS: Glucose Point of Care 99 mg/dL (70-110)
--- NOTE | 2023-06-17 06:46 | P.PN_ITS ---
Subjective 2 Subjective: 72-year-old male admitted with acute kid caesar injury, electrolyte imbalances and a small bowel obstruction. Patient has been stable overnight, continues to have abdominal pain and distention, NG tube was placed in the emergency department with initial decompression of bilious effluent from the stomach, no other significant changes. Vitals/I&O/Wt Last Vital Signs Temp 98.1 F 06/17/23 04:30 Pulse 65 06/17/23 05:46 Resp 20 H 06/17/23 05:37 BP 148/70 06/17/23 04:45 Pulse Ox 97 06/17/23 05:37 O2 Del Method Nasal Cannula 06/17/23 04:45 O2 Flow Rate 2 06/17/23 04:45 06/16/23 06/16/23 06/17/23 14:59 22:59 06:59 Intake Total 1454.667 / 3455.917 Output Total 450 / 450 Balance 1004.667 / 3005.917 Weight last 48 hrs Weight 242 lb 5 oz Weight 240 lb Physical Exam 2 Const: OTHER: Patient is alert and oriented HENMT: OTHER: NG tube in place, appears to have mobilized from initial position. GI: OTHER: Abdomen is soft but distended and there is tenderness to palpation, this is unchanged from yesterday night. Data 06/17/23 04:05 06/17/23 04:05 A&P Assessment and plan (1) Small bowel obstruction: Plan After complete history physical examination and review of all available clinical data points my assessment. No significant clinical changes since yesterday night. NG tube noted to be disconnected from the nose this morning, I have informed the nursing team we will obtain an x-ray and advance as needed, NG tube will be then correctly fixed to the nose to prevent further migration. NG tube to the state to low intermittent wall suction at all times. Patient continues to have abdominal pain and distention, denies flatus or bowel movement. Laboratory workup is improved when compared to yesterday white count has normalized and creatinine is trending down. We should continue trending lactate level. -NG tube repositioning guided by x-ray ? Continuing NG tube to low intermittent wall suction ? Continue medical management of acute kidney injury and electrolyte imbalances ? Will continue to monitor patient clinical status and status of clinical deterioration or any other signs of progression patient will require exploratory laparotomy. Attestations 2 Medical Necessity Statement*: Patient will require at least 72 hours of hospital stay for management of SBO, multiple electrolyte abnormalities, acute kidney injury. Coding Level of Care Code Acute Code for Chg Fwd Diagnoses Small bowel obstruction K56.609
--- NOTE | 2023-06-17 07:00 | XRR_ITS ---
PROCEDURE INFORMATION: Exam: XR Chest Exam date and time: 06/17/2023 7:29 AM Age: 72 years old Clinical indication: Condition or disease; Intestinal condition; Obstruction; Additional info: Follow up sbo TECHNIQUE: Imaging protocol: Radiologic exam of the chest. Views: 1 view. COMPARISON: CR (CHEST, ) 06/16/2023 11:33 PM FINDINGS: Tubes, catheters and devices: NGT tip at mid esophagus, advise appropriate advancement. Right IJ line unchanged. Lungs: Mild COPD. Lung base atelectasis or scarring. Pleural spaces: Unremarkable. No pleural effusion. No pneumothorax. Heart/Mediastinum: The heart is large. CABG and vascular calcification. Bones/joints: Unremarkable. PROCEDURE INFORMATION: Exam: XR Abdomen Exam date and time: 06/17/2023 7:29 AM Age: 72 years old Clinical indication: Condition or disease; Intestinal condition; Obstruction; Additional info: Follow up sbo TECHNIQUE: Imaging protocol: Radiologic exam of the abdomen. Views: 2 Views. Upright and supine views. COMPARISON: CT abdomen pelvis con [id number] 06/16/2023 8:24 PM FINDINGS: Tubes, catheters and devices: NGT tip at mid esophagus, advise appropriate advancement. Gastrointestinal tract: Diffuse small bowel dilation again seen up to about 5 cm. Small bowel obstruction or ileus favored. See prior day CT. Intraperitoneal space: No evidence of free air. Organs: Absent gallbladder Bones/joints: Moderate spine and hip DJD. XR/XR acute abdomen series [id number] IMPRESSION: 1. NGT tip at mid esophagus, advise appropriate advancement. 2. Stable chest from prior day otherwise. IMPRESSION: 1. NGT tip at mid esophagus, advise appropriate advancement. 2. Diffuse small bowel dilation again seen up to about 5 cm. Small bowel obstruction or ileus favored.
--- NOTE | 2023-06-17 07:44 | PC.PHAR ---
PT UNABLE TO VERIFY- FAXED [facility] AT 7:45 AM FOR MED LIST
--- NOTE | 2023-06-17 08:06 | ECG_ITS ---
[facility] Test Date: 2023-06-17 Pat Name: Junior Andersen Department: Room: ICU10 Gender: Male Robotype Operator: : 1950 Requested By: Ryland Webster Order Number: [id number] Carmela MD: Gee Ochoa M.D. Measurements Intervals [place] Rate: 69 P: 107 FL: 146 QRS: 29 QRSD: 137 T: 206 QT: 421 QTc: 453 Interpretive Statements SINUS RHYTHM WITH SINUS ARRHYTHMIA INTRAVENTRICULAR CONDUCTION DELAY [130+ ms QRS DURATION] Compared to ECG 06/10/2023 11:47:39 T-wave abnormality no longer present Possible ischemia no longer present Electronically Signed On 06-17-2023 8:46:08 DECORATIVE CUTTING MACHINE TENDER by Gee Ochoa M.D. [id number]
--- NOTE | 2023-06-17 08:44 | PC.NURSE ---
Dr. Malikod in to see the pt and informed him that I would get him something for pain now. The only pain med that I have to give the pt is morphine IVP which is not time to give per the MAR but will give as the doctor told the pt that I would.
[2023-06-17 09:15] LABS: Hematocrit 33.1 % (37-53)
[2023-06-17 09:31] LABS: Lactic Sepsis W/Reflex 0.5 mmol/L (0.5-2.2)
--- NOTE | 2023-06-17 09:32 | XRR_ITS ---
PROCEDURE INFORMATION: Exam: XR Chest Exam date and time: 06/17/2023 9:59 AM Age: 72 years old Clinical indication: Device placement; Ng tube; Additional info: Re-check ng tube placement TECHNIQUE: Imaging protocol: Radiologic exam of the chest. Views: 1 view. COMPARISON: CR XR acute abdomen series [id number] 06/17/2023 7:29 AM FINDINGS: Tubes, catheters and devices: NGT now in place, tip at gastric body. Right IJ line unchanged. Lungs: Mild COPD. Lung base atelectasis or scarring. Right lung infiltrates or edema again seen. Pleural spaces: Unremarkable. No pleural effusion. No pneumothorax. Heart/Mediastinum: The heart is large. CABG and vascular calcification. Bones/joints: Unremarkable. Gastrointestinal tract: Partially assessed known bowel dilation. XR/XR chest 1V portable [id number] IMPRESSION: 1. NGT now in place 2. Stable chest from prior day otherwise.
[2023-06-17 09:34] LABS: Troponin(5th) Baseline 37 ng/L (0-15)
[2023-06-17 09:53] LABS: NT Pro B Type Natriuretic Pept 365 pg/mL (0-125)
--- NOTE | 2023-06-17 10:10 | ECG_ITS ---
[facility] Test Date: 2023-06-17 Pat Name: Junior Andersen Department: Room: ICU10 Gender: Male Ediphone Operator: : 1950 Requested By: Ryland Webster Order Number: [id number] Casey MD: Gee Ochoa M.D. Measurements Intervals [place] Rate: 59 P: 133 IN: 125 QRS: 42 QRSD: 129 T: 208 QT: 433 QTc: 432 Interpretive Statements SINUS BRADYCARDIA MODERATE INTRAVENTRICULAR CONDUCTION DELAY [105+ ms QRS DURATION, 80+ ms Q/S IN V1/V2, NO Q AND 60+ ms R IN I/aVL/V5/V6] ST DEVIATION AND MODERATE T-WAVE ABNORMALITY, CONSIDER LATERAL ISCHEMIA [-0.1+ mV T-WAVE IN I/aVL/V5/V6] ST DEVIATION AND MODERATE T-WAVE ABNORMALITY, CONSIDER INFERIOR ISCHEMIA [-0.1+ mV T-WAVE IN II/aVF] Compared to ECG 06/17/2023 08:35:54 T-wave abnormality now present Possible ischemia now present Sinus rhythm no longer present Sinus arrhythmia no longer present Electronically Signed On 06-17-2023 11:03:08 BOAT OFFICER by Gee Ochoa M.D. [id number]
[2023-06-17] MEDS: HYDROmorphone 1 mg/mL INJ 1 mL 0.5 MG IVP ×4 (10:49→23:47)
[2023-06-17] MEDS: sucralfate 1 gm Tablet PO ×3 (10:51→20:48)
[2023-06-17] MEDS: tamsulosin 0.4 mg Capsule 0.400000000000000022 MG PO (10:51)
--- NOTE | 2023-06-17 10:59 | P.PN_ITS ---
Subjective 2 Subjective: Patient was seen this morning, he is alert oriented x 3, following all commands, NG tube is in place, he is asking me why does he have a nasogastric tube, he is not having a lot of abdominal pain or blood pleural bloating denies passing gas, denies passing any stool, I had extensive discussion with him about his bowel obstruction, the need for bowel rest, pain control the possibility of surgery he has had CAD with stent placement in 2022, denies any chest pain, no palpitation is compliant with his outpatient regimen, Vitals/I&O/Wt Last Vital Signs Temp 98.1 F 06/17/23 04:30 Pulse 55 L 06/17/23 08:15 Resp 19 H 06/17/23 10:49 BP 107/44 06/17/23 08:15 Pulse Ox 98 06/17/23 08:15 O2 Del Method Nasal Cannula 06/17/23 05:45 O2 Flow Rate 2 06/17/23 05:45 06/16/23 06/17/23 06/17/23 22:59 06:59 14:59 Intake Total 1454.667 / 3455.917 613.333 / 613.333 Output Total 450 / 450 400 / 400 Balance 1004.667 / 3005.917 213.333 / 213.333 Weight last 48 hrs Weight 109.911 kg Weight 109.911 kg Weight 108.862 kg Physical Exam 2 Const: COMMON NORMALS: no acute distress and patient oriented x3 Resp: COMMON NORMALS: normal respiratory effort, No retractions, No use of accessory muscles and clear to auscultation bilaterally AUSCULTATION: clear to auscultation bilaterally Cardio: COMMON NORMALS: regular rate, regular rhythm, S1 normal heart sound present and S2 normal heart sound present RATE: regular rate RHYTHM: r egular rhythm HEART SOUNDS: S1 normal heart sound present and S2 normal heart sound present GI: OTHER: Abdomen is soft, distended, diminished bowel sounds in all 4 quadrants, no guarding, no rebound, no rigidity Extremity: COMMON NORMALS: no pedal edema Neuro: COMMON NORMALS: patient oriented x3 Psych: COMMON NORMALS: mental status grossly normal Data 06/17/23 09:03 06/17/23 04:05 A&P Assessment and plan (1) Small bowel obstruction: CT/CT abdomen pelvis wo con [id number] IMPRESSION: 1. Multiple dilated small bowel loops to 4.1 cm with fluid levels consistent with an obstruction, potentially high-grade, negative for transition point seen. 2. Small bilateral fat containing inguinal hernias without bowel or inflammation. 3. Bibasilar ground-glass atelectasis versus minimal infiltrate. 4. Mild cardiomegaly. 5. Coronary artery atherosclerotic calcifications. 6. Cholecystectomy. 7. Left kidney cyst, negative for follow-up advis Plan ? Serial abdominal exams, ? Continue bowel rest, n.p.o., ? Gentle IV hydration, ? NG tube in place, ? Pain control Dilaudid, ? General surgery on consult ? Full code ? SCDs for DVT prophylaxis as there is complaints of hematemesis (2) Hematemesis: Reported some blood and some coffee-ground contents mixed into vomitus Recent EGD with some gastritis, ulcer. Plan ? Continue Protonix 40 IV twice daily next ?Carafate -Currently aspirin on hold continue Plavix with a history of CAD SCD only for VTE prophylaxis for now. (3) Hypovolemic shock: - Hypovolemic shock -Off pressors -Continue IV hydration -Monitor lactic acid (4) CAD (coronary artery disease): With recent GI bleeding, was taken off aspirin, continue Plavix, discussed risks with him and family. Hold beta-theresa due to hypotension. Qualifiers: Coronary Disease-Associated Artery/Lesion type: unspecified vessel or lesion type [place] vs. transplanted heart: [place] heart Associated angina: a ngina presence unspecified Qualified Code(s): I25.10 - Atherosclerotic heart disease of [place] coronary artery without angina pectoris (5) VIGNESH (acute kidney injury): VIGNESH, creatinine up to 4, BUN 47, suspected prerenal with hypovolemia, hypotension, also on lisinopril. Hold. Hold antihypertensives. Resuscitation as above. Monitor hemodynamics. Check CK. (6) Hyponatremia: Hypovolemic hyponatremia with vomiting, no oral intake, receiving fluid resuscitation. Follow-up chemistry requested. Plan Systolic congestive heart failure: Not in exacerbation Diabetes: Bowel rest at current time, Accu-Cheks, insulin Lantus 5 unnits, sliding scale HTN: Monitor blood pressures, currently hypovolemic shock requiring pressor. Hold antihypertensives. Smoking addiction: Encourage cessation. Nicotine replacement as needed. Carotid artery stenosis JENAE normally on CPAP: Currently with bowel obstruction, abdominal distention, NGT, hold off for now BPH: Flomax COPD: Currently not in exacerbation, breathing treatments. Budesonide. Other medical problems. Requesting medications to be confirmed, please review and reconcile once available. Attestations 2 Medical Necessity Statement*: patient requires hospitalization for bowel obstruction hypovolemic shock VIGNESH hyponatremia inpatient, greater than 2 midnights Diagnoses Small bowel obstruction K56.609 Hematemesis K92.0 Hypovolemic shock R57.1 Coronary artery disease involving [place] heart, angina presence unspecified, unspecified vessel or lesion type I25.10 Coronary Disease-Associated Artery/Lesion type: unspecified vessel or lesion type [place] vs. transplanted heart: [place] heart Associated angina: angina presence unspecified VIGNESH (acute kidney injury) N17.9 Hyponatremia E87.1
[2023-06-17 11:28] LABS: Troponin 5 2HR 34.68 ng/L (0-15)
[2023-06-17 11:29] LABS: Troponin 5 2HR Delta -2.32 ABS# (0-10)
[2023-06-17 12:07] LABS: Lactate (Lactic Acid level) 0.5 mmol/L (0.5-2.2)
--- NOTE | 2023-06-17 12:32 | P.MISC_ITS ---
Miscellaneous Note Purpose of Documentation: Update on patient care Note: I reevaluated the patient this morning after x-ray showed evidence of the NG tube at the level of the esophagus, NG tube was advanced to the stomach and new x-ray confirmed adequate positioning. There is no changes in physical exam patient still complaining of abdominal pain abdomen is soft but distended and tender but no evidence of peritonitis and no other signs concerning for perfor ation. Will continue with conservative management for the time being
[2023-06-17 12:52] LABS: Glucose Point of Care 101 mg/dL (70-110)
[2023-06-17] MEDS: acetaminophen 325 mg Tablet 650 MG PO (13:11)
--- NOTE | 2023-06-17 14:00 | XRR_ITS ---
PROCEDURE INFORMATION: Exam: XR Abdomen Exam date and time: 06/17/2023 1:56 PM Age: 72 years old Clinical indication: Other: Abdominal distention; Prior surgery; Surgery date: 6+ months; Surgery type: Appy TECHNIQUE: Imaging protocol: Radiologic exam of the abdomen. Views: Frontal supine view of the abdomen. 1 View. COMPARISON: 1. CR XR acute abdomen series [id number] 06/17/2023 7:[address] abdomen pelvis wo con [id number] 06/16/2023 8:24 PM FINDINGS: Tubes, catheters and devices: Enteric tube terminates at the right upper abdomen, distal stomach versus proximal duodenum. Gastrointestinal tract: Multiple air-filled dilated small bowel loops measure up to 4.5 cm in diameter. Intraperitoneal space: No supine evidence of free air. Right upper abdomen surgical clips. Bones/joints: Degenerative changes along the spine. XR/XR KUB portable [id number] IMPRESSION: Known small bowel obstruction.
--- NOTE | 2023-06-17 14:12 | ECG_ITS ---
[facility] Test Date: 2023-06-17 Pat Name: Junior Andersen Department: Room: ICU10 Gender: Male Net Application Support Specialist: : 1950 Requested By: Ryland Webster Order Number: [id number] Carmela MD: Gee Ochoa M.D. Measurements Intervals [place] Rate: 65 P: 88 [place]: 146 QRS: 28 QRSD: 126 T: 182 QT: 405 QTc: 422 Interpretive Statements SINUS RHYTHM MODERATE INTRAVENTRICULAR CONDUCTION DELAY [105+ ms QRS DURATION, 80+ ms Q/S IN V1/V2, NO Q AND 60+ ms R IN I/aVL/V5/V6] ST DEVIATION AND MODERATE T-WAVE ABNORMALITY, CONSIDER ANTEROLATERAL ISCHEMIA [-0.1+ mV T-WAVE IN V3-V6] Compared to ECG 06/17/2023 10:10:25 Sinus bradycardia no longer present T-wave abnormality still present Possible ischemia still present Electronically Signed On 06-17-2023 16:16:34 WORKFORCE SPECIALIST by Gee Ochoa M.D. [id number]
[2023-06-17 15:20] LABS: Troponin 5 6HR 29.78 ng/L (0-15)
[2023-06-17 15:22] LABS: Troponin 5 6HR Delta -7.22 ng/L (0-12)
[2023-06-17] MEDS: topiramate 25 mg Tablet 50 MG PO (17:23)
[2023-06-17] MEDS: atorvastatin 40 mg Tablet 80 MG PO (17:23)
[2023-06-17] MEDS: gabapentin 400 mg Capsule PO ×2 (17:23→20:45)
[2023-06-17 17:28] LABS: Glucose Point of Care 90 mg/dL (70-110)
--- NOTE | 2023-06-17 18:43 | PC.NURSE ---
SHift Summary: Uneventful shift. Patient has rested in bed throughout the day. Occasional abdominal pain which is relieved with PRN dilaudid. Vitals within normal limits.
[2023-06-17 19:21] LABS: Lactate (Lactic Acid level) 0.6 mmol/L (0.5-2.2)
[2023-06-17 23:39] LABS: Lactate (Lactic Acid level) 0.6 mmol/L (0.5-2.2)
[2023-06-18] VITALS (15 sets, daily range): BP systolic 106–126; BP diastolic 41–52; PULSE 61–81; RESP 12–30; TEMP 36.7–37.3; O2SAT 7–96
[2023-06-18 00:53] LABS: Glucose Point of Care 83 mg/dL (70-110)
[2023-06-18] MEDS: pantoprazole 40 mg SDV IVP ×2 (00:53→14:01)
--- NOTE | 2023-06-18 02:28 | PC.NURSE ---
Called and spoke with telepharmacy regarding patients carafate order. The patient takes PO carafate but is unable to swallow them due to NG tube and the pills do not dissolve to administer through the NG tube. Pharmacy changed formulary to liquid for administration through NG tube.
[2023-06-18] MEDS: sucralfate 1 gm/10 mL Oral Liq UDC PO ×3 (03:13→21:17)
[2023-06-18] MEDS: HYDROmorphone 1 mg/mL INJ 1 mL 0.5 MG IVP ×3 (03:20→10:45)
[2023-06-18 05:14] LABS: Basophils # 0.1 10^3/uL (0.0-0.1); Basophils % 0.6 %; Eosinophils # 0.3 10^3/uL (0.0-0.8); Eosinophils % 3.3 %; Hematocrit 32.9 % (37-53); Lymphocytes # 0.8 10^3/uL (0.8-4.8); Lymphocytes % 9.7 %; Mean Corpuscular HGB Conc 31.3 g/dL (30-55); Mean Corpuscular Hemoglobin 28.8 pg (27-33); Mean Corpuscular Volume 91.9 fl (82-101); Mean Platelet Volume 10.8 fL (7.4-10.4); Monocytes % 12.7 %; Neutrophils # 5.93 10^3/uL (1.8-7.7); Neutrophils % 73.2 %; Nucleated Red Blood Cells % 0 %; Platelet Count 149 10^3/cmm (157-399); Red Blood Count 3.58 10^6/uL (3.85-5.65); Red Cell Distribution Width 13.3 % (12.1-15.1); White Blood Count 8.11 10^3/uL (3.29-11.43)
[2023-06-18 05:38] LABS: Lactate (Lactic Acid level) 0.6 mmol/L (0.5-2.2)
[2023-06-18 05:54] LABS: C Reactive Protein 32.4 mg/L (0.0-4.9); Magnesium 2.1 mg/dL (1.7-2.3); Phosphorus 2.7 mg/dL (2.5-4.5)
[2023-06-18 05:59] LABS: Alanine Aminotransferase 11 U/L (0-41); Alkaline Phosphatase 64 U/L (40-130); Anion Gap 18.5 (5-19); Aspartate Amino Transferase 16 U/L (0-40); Blood Urea Nitrogen 29 mg/dL (8-23); Calcium 7.6 mg/dL (8.5-10.5); Carbon Dioxide 21 mmol/L (22-29); Chloride 105 mmol/L (98-107); Creatinine Clr Calc Pharmacy 50.9813; Globulin 2.3 g/dL (1.3-4.6); Glucose 74 mg/dL (65-115); Osmolality Calculated 294 mOsm/kg (285-295); Potassium 4.5 mmol/L (3.5-5.1); Sodium 140 mmol/L (136-145); Total Bilirubin 0.4 mg/dL (0.15-1.2); Total Protein 5.3 g/dL (6.6-8.7)
[2023-06-18] MEDS: lactated ringers 1,000 ML 100 ML IV ×2 (06:01→17:34)
[2023-06-18 06:22] LABS: Creatine Phosphokinase 32 U/L (39-308); NT Pro B Type Natriuretic Pept 716 pg/mL (0-125)
[2023-06-18 06:22] LABS: Glucose Point of Care 83 mg/dL (70-110)
--- NOTE | 2023-06-18 08:37 | P.PN_ITS ---
Subjective 2 Subjective: This is a 72-year-old male who is on hospital day 2 after admission for small bowel obstruction, acute kidney injury. In the last 24 hours patient has remained stable, abdominal pain has remained stable but without significant worsening. Has not had a bowel movement or passed gas yet. Vitals/I&O/Wt Last Vital Signs Temp 98.0 F 06/18/23 04:54 Pulse 63 06/18/23 06:00 Resp 13 06/18/23 07:50 BP 117/49 06/18/23 04:54 Pulse Ox 96 06/18/23 07:50 O2 Del Method Nasal Cannula 06/18/23 04:54 O2 Flow Rate 2 06/18/23 04:54 06/17/23 06/18/23 06/18/23 22:59 06:59 14:59 Intake Total 923.333 / 1536.666 993.333 / 2529.999 Output Total 300 / 1500 1000 / 2500 450 / 450 Balance 623.333 / 36.666 -6.667 / 29.999 -450 / -450 Weight last 48 hrs Weight 242 lb 5 oz Weight 242 lb 5 oz Weight 240 lb Physical Exam 2 HENMT: OTHER: NG tube in place with bilious output, 700 in the last 24 hours Data 06/18/23 04:50 06/18/23 04:50 A&P Assessment and plan (1) Small bowel obstruction: Plan After a complete history, physical examination and review of all available clinical data the following is my assessment. Patient who had a recent admission for possible GI bleeding and abdominal pain with CT scan concerning for bowel thickening, who now presents with a small bowel obstruction. CT scan shows no evidence of a transition point. After initial resuscitation and medical management patient clinical status has significantly improved, renal function has improved and is almost back to baseline. NG tube was inserted upon patient arrival, but due to position of the NG tube decompression was not effective until around 11 AM yesterday, after repositioning there has been about 700 cc of bilious output from the NG tube. Patient continues to have abdominal pain and distention, distention appears to be improved and abdominal pain is a stable. He denies passing gas or having bowel movements. Laboratory workup has also shown improvement of lactate level which was 1.2 upon arrival and now sits at 0.6. There is no clinical findings or laboratory findings at the moment that are concerning for progression of obstruction to ischemia, or need to immediate surgical intervention. As of today patient has only completed 24 hours of decompression. In accordance to current clinical guidelines we will continue nonoperative management of a small bowel obstruction for at least 3 to 5 days depending on clinical status I will plan to do a Gastrografin trial on if there is no evidence of return of bowel function until then. In the case of clinical worsening, changes on the laboratory workup or fail to resolve the patient may need an exploratory laparotomy. This will be consider high risk as previously explained to the family due to patient comorbidities and history of multiple intra-abdominal surgeries. I have discussed with nursing staff at the bedside that patient should be out of bed to chair and walking is much as possible to improve the chances of return of bowel function. -Continue NG tube to low intermittent wall suction -We will continue nonoperative management for 48 to 72 hours unless there is changes in the clinical status -We will plan for Gastrografin trial on -Please continue to trend CBC lactate levels and CRP -Appreciate all other management per primary team -Please continue correction of electrolyte imbalances -Patient must be out of bed to chair and walking around to improve chances of return of bowel function Attestations 2 Medical Necessity Statement*: Patient will require 48 to 72 hours of hospital stay for conservative management of small bowel obstruction and acute kidney injury. Coding Level of Care Code 98894 Diagnoses Small bowel obstruction K56.609
[2023-06-18] MEDS: gabapentin 400 mg Capsule PO ×3 (09:39→21:17)
[2023-06-18] MEDS: tamsulosin 0.4 mg Capsule 0.400000000000000022 MG PO (09:39)
[2023-06-18] MEDS: topiramate 25 mg Tablet 50 MG PO ×2 (09:44→17:49)
--- NOTE | 2023-06-18 09:44 | PC.CHAP ---
Pastoral Care Encounter/Spiritual Assessment Type of Contact [] Declined metal patternmaker visit [] Patient/Family/Request visit [] Outpatient visit [] Follow-up visit [] Physician referral [] Code/Alert [x] Routine visit [] Staff referral [] Actively dying [] Patient sleeping [] Family support [] [] Out of room [] Palliative care [] [] Receiving care in room [] Pre-surgical visit [] Trauma [] Long length of stay [] ICU visit [] Other: Relational/Emotional Strength [x] Patient feels connected with others/family/visitors/staff [] Distress [] Loneliness/isolation [] Abandonment Spirituality of Patient [x] Person of Shandra [] Attends Mu-Ism of their Shandra [x] Believes in Prayer [] Reads Bible or Pentecostal materials [] There are Spiritual issues to be addressed Key Attendant Interventions [x] Prayer [x] Active listening [] Non-anxious presence [x] Spiritual/emotional support [] Crisis/trauma care [] Spiritual counseling [] Bereavement support [] Provided bereavement packet [] Provided Bible/devotional materials [] Provided toy/stuffed animal, coloring book to patient or family member [] Provided Communion [] Anointing/[place] [] Salvation [x] Completed spiritual assessment [] Other: Impact on Illness or Injury [] Angry [] Fearful [] Anxious [] Often cries [] Exhaustion [] Unable to work [] Unable to attend confucianism [] Unable to walk/stand [] Unable to read [] Unable to drive [] Unable to eat/drink [] Unable to sleep [] Unable to be with family [] Patient intubated [] Other: Summary Time spent with patient 5 min
[2023-06-18 11:47] LABS: Glucose Point of Care 86 mg/dL (70-110)
[2023-06-18] MEDS: HYDROmorphone 1 mg/mL INJ 1 mL IVP ×2 (14:00→21:17)
--- NOTE | 2023-06-18 14:28 | PM.MISC ---
Miscellaneous Note Purpose of Documentation: Evening rounds Note: Evaluated patient at the bedside, abdominal pain is stable, NG tube output has been 200 since the morning mostly bilious. Vital signs have remained stable. I had extensive discussion with patient's I have explained the patient clinical condition, I have explained to the that if there is failure to progress patient may require laparotomy, I have explained that indicated surgery there is a high chance for morbidity and mortality due to patient history of previous abdominal surgeries as well as comorbidities. shows understanding, will continue current management. Of note, I have reiterated with the patient and the care team that patient needs to be out of bed to chair and walking around. Nursing care team will attempt transfer to a private room and in addition to that physical therapy will be involved for ambulation.
--- NOTE | 2023-06-18 15:42 | P.PN_ITS ---
Subjective 2 Subjective: Patient was seen this morning, reports abdominal distention, lack of stooling, lack of bowel movement, he had about 700 cc output overnight from his nasogastric tube, no chest pain, no palpitations, his and daughter at bedside had extensive discussion with him about bowel obstructions, medical management versus surgical interventions, the concern for his underlying CAD, will await surgical recommendations, advised him to get up out of bed, into a chair, will continue to monitor him closely, Vitals/I&O/Wt Last Vital Signs Temp 98.3 F 06/18/23 13:26 Pulse 77 06/18/23 13:26 Resp 18 06/18/23 14:00 BP 106/41 06/18/23 13:26 Pulse Ox 94 06/18/23 13:26 O2 Del Method Nasal Cannula 06/18/23 13:26 O2 Flow Rate 2 06/18/23 13:26 06/18/23 06/18/23 06/18/23 06:59 14:59 22:59 Intake Total 993.333 / 2529.999 100 / 100 Output Total 1000 / 2500 700 / 700 Balance -6.667 / 29.999 -600 / -600 Weight last 48 hrs Weight 109.911 kg Weight 109.911 kg Weight 108.862 kg Physical Exam 2 Const: COMMON NORMALS: no acute distress and patient oriented x3 Resp: COMMON NORMALS: normal respiratory effort, No retractions, No use of accessory muscles and clear to auscultation bilaterally AUSCULTATION: clear to auscultation bilaterally Cardio: COMMON NORMALS: regular rate, regular rhythm, S1 normal heart sound present and S2 normal heart sound present RATE: regular rate RHYTHM: r egular rhythm HEART SOUNDS: S1 normal heart sound present and S2 normal heart sound present GI: OTHER: Abdomen soft, distended, no guarding, no rebound, no no rigidity, does have diffuse abdominal tenderness, diminished bowel sounds Extremity: COMMON NORMALS: no calf tenderness and no pedal edema Neuro: COMMON NORMALS: patient oriented x3 Psych: COMMON NORMALS: mental status grossly normal Data 06/18/23 04:50 06/18/23 04:50 A&P Assessment and plan (1) Small bowel obstruction: CT/CT abdomen pelvis wo con [id number] IMPRESSION: 1. Multiple dilated small bowel loops to 4.1 cm with fluid levels consistent with an obstruction, potentially high-grade, negative for transition point seen. 2. Small bilateral fat containing inguinal hernias without bowel or inflammation. 3. Bibasilar ground-glass atelectasis versus minimal infiltrate. 4. Mild cardiomegaly. 5. Coronary artery atherosclerotic calcifications. 6. Cholecystectomy. 7. Left kidney cyst, negative for follow-up advis Plan ? Serial abdominal exams, ? Continue bowel rest, n.p.o., ? Gentle IV hydration, ? NG tube in place, ? Pain control Dilaudid, ? General surgery on consult ? Full code ? SCDs for DVT prophylaxis as there is complaints of hematemesis (2) Hematemesis: Reported some blood and some coffee-ground contents mixed into vomitus Recent EGD with some gastritis, ulcer. Plan ? Continue Protonix 40 IV twice daily next ?Carafate -Currently aspirin on hold, continue Plavix with a history of CAD SCD only for VTE prophylaxis (3) Hypovolemic shock: - Hypovolemic shock -Off pressors -Continue IV hydration -Monitor lactic acid (4) CAD (coronary artery disease): With recent GI bleeding, was taken off aspirin, continue Plavix, discussed risks with him and family. Hold beta-theresa due to hypotension. Qualifiers: Coronary Disease-Associated Artery/Lesion type: unspecified vessel or lesion type [place] vs. transplanted heart: [place] heart Associated angina: a ngina presence unspecified Qualified Code(s): I25.10 - Atherosclerotic heart disease of [place] coronary artery without angina pectoris (5) VIGNESH (acute kidney injury): VIGNESH, creatinine up to 4, BUN 47, suspected prerenal with hypovolemia, hypotension, also on lisinopril. Hold. Hold antihypertensives. Resuscitation as above. Monitor hemodynamics. Check CK. (6) Hyponatremia: Hypovolemic hyponatremia with vomiting, no oral intake, receiving fluid resuscitation. Follow-up chemistry requested. Plan Systolic congestive heart failure: Not in exacerbation Diabetes: Bowel rest at current time, Accu-Cheks, insulin Lantus 5 unnits, sliding scale HTN: Monitor blood pressures, currently hypovolemic shock requiring pressor. Hold antihypertensives. Smoking addiction: Encourage cessation. Nicotine replacement as needed. Carotid artery stenosis JENAE normally on CPAP: Currently with bowel obstruction, abdominal distention, NGT, hold off for now BPH: Flomax COPD: Currently not in exacerbation, breathing treatments. Budesonide. Other medical problems. Requesting medications to be confirmed, please review and reconcile once available. Attestations 2 Medical Necessity Statement*: Patient requires hospitalization, for small bowel obstruction, general surgery on consult continue clear conservative intervention IV fluids NG tube, serial abdominal exams Diagnoses Small bowel obstruction K56.609 Hematemesis K92.0 Hypovolemic shock R57.1 Coronary artery disease involving [place] heart, angina presence unspecified, unspecified vessel or lesion type I25.10 Coronary Disease-Associated Artery/Lesion type: unspecified vessel or lesion type [place] vs. transplanted heart: [place] heart Associated angina: angina presence unspecified VIGNESH (acute kidney injury) N17.9 Hyponatremia E87.1
[2023-06-18] MEDS: enoxaparin 40 mg/0.4 mL Syringe SUBCUT (16:29)
[2023-06-18] MEDS: clopidogrel 75 mg Tablet PO (16:29)
[2023-06-18 16:38] LABS: Glucose Point of Care 77 mg/dL (70-110)
--- NOTE | 2023-06-18 16:56 | PC.NURSE ---
PT in room to evaluate mobility to be able to safely move out from bed to a chair today.
[2023-06-18] MEDS: atorvastatin 40 mg Tablet 80 MG PO (17:49)
--- NOTE | 2023-06-18 20:04 | PC.NURSE ---
shift report pt still on low intermittent suction NGT. pain med well controlled after increased dose. patient evaluated by PT for safe mobility out of bed. Pt is weak and was out of bed in short amt of time then to chair due to weakness. pt not safe for ambulation at this time per PT. pls see PT eval for more assessment.
[2023-06-19] VITALS (13 sets, daily range): BP systolic 128–158; BP diastolic 54–70; PULSE 59–96; RESP 18–40; TEMP 36.9–37.1; O2SAT 90–92; BMI 33.7
[2023-06-19 00:13] LABS: Glucose Point of Care 73 mg/dL (70-110)
[2023-06-19] MEDS: pantoprazole 40 mg SDV IVP ×2 (01:56→12:24)
[2023-06-19] MEDS: sucralfate 1 gm/10 mL Oral Liq UDC PO ×2 (01:56→09:20)
[2023-06-19] MEDS: HYDROmorphone 1 mg/mL INJ 1 mL IVP ×4 (02:33→22:04)
[2023-06-19 05:20] LABS: Basophils % 0.4 %; Eosinophils # 0.2 10^3/uL (0.0-0.8); Eosinophils % 2.3 %; Hematocrit 33.1 % (37-53); Lymphocytes # 0.9 10^3/uL (0.8-4.8); Lymphocytes % 11.4 %; Mean Corpuscular HGB Conc 31.1 g/dL (30-55); Mean Corpuscular Hemoglobin 28.8 pg (27-33); Mean Corpuscular Volume 92.5 fl (82-101); Mean Platelet Volume 11.2 fL (7.4-10.4); Monocytes # 0.9 10^3/uL (0.2-0.9); Monocytes % 11.8 %; Neutrophils # 5.83 10^3/uL (1.8-7.7); Neutrophils % 73.7 %; Nucleated Red Blood Cells % 0 %; Platelet Count 146 10^3/cmm (157-399); Red Blood Count 3.58 10^6/uL (3.85-5.65)
[2023-06-19 05:24] LABS: INR 1.11 (0.8-1.2)
[2023-06-19 05:34] LABS: Alanine Aminotransferase 9 U/L (0-41); Alkaline Phosphatase 62 U/L (40-130); Anion Gap 18.3 (5-19); Aspartate Amino Transferase 12 U/L (0-40); Blood Urea Nitrogen 24 mg/dL (8-23); Calcium 8.1 mg/dL (8.5-10.5); Carbon Dioxide 22 mmol/L (22-29); Chloride 103 mmol/L (98-107); Creatinine Clr Calc Pharmacy 66.6678; Globulin 2.8 g/dL (1.3-4.6); Glomerular Filtration Rate 54.6 mL/min (90-130); Glucose 81 mg/dL (65-115); Osmolality Calculated 291 mOsm/kg (285-295); Potassium 4.3 mmol/L (3.5-5.1); Sodium 139 mmol/L (136-145); Total Bilirubin 0.4 mg/dL (0.15-1.2); Total Protein 5.8 g/dL (6.6-8.7)
[2023-06-19] MEDS: lactated ringers 1,000 ML 100 ML IV ×2 (05:41→18:04)
[2023-06-19 05:44] LABS: Creatine Phosphokinase 33 U/L (39-308); NT Pro B Type Natriuretic Pept 1033 pg/mL (0-125)
[2023-06-19 05:54] LABS: C Reactive Protein 53.8 mg/L (0.0-4.9); Phosphorus 2.5 mg/dL (2.5-4.5)
[2023-06-19 06:03] LABS: Glucose Point of Care 84 mg/dL (70-110)
--- NOTE | 2023-06-19 07:38 | P.PN_ITS ---
Subjective 2 Subjective: Is a 72-year-old male who is hospital day 3 after admission for small bowel obstruction and acute kidney injury. Patient has had a good progression over the last 24 hours. Abdominal pain has improved. Patient endorses passing gas yesterday night and again this morning. NG output has remained about 40 cc/h of bilious fluid Vitals/I&O/Wt Last Vital Signs Temp 98.5 F 06/19/23 04:00 Pulse 59 L 06/19/23 06:00 Resp 18 06/19/23 04:00 BP 158/54 06/19/23 04:00 Pulse Ox 92 06/19/23 04:00 O2 Del Method Nasal Cannula 06/18/23 17:59 O2 Flow Rate 2 06/18/23 17:59 06/18/23 06/19/23 06/19/23 22:59 06:59 14:59 Intake Total 1300 / 1400 1000 / 2400 Output Total 600 / 1300 900 / 2200 400 / 400 Balance 700 / 100 100 / 200 -400 / -400 Weight last 48 hrs Weight 242 lb 5 oz Physical Exam 2 HENMT: OTHER: NG tube in place with bilious output GI: OTHER: Abdomen is soft, improved distention when compared to yesterday, there is focal tenderness in the right upper quadrant tenderness in the [place] abdomen has significantly decreased. Bowel sounds can be heard slightly hypoactive Data 06/19/23 04:32 06/19/23 04:32 A&P Assessment and plan (1) Small bowel obstruction: Plan Hospital day 3 for SBO and acute kidney injury. Good progress over the last 24 hours. Patient will complete full 48 hours of decompression today at noon. We will do a Gastrografin challenge today and evaluate for advancement of the contrast over the next 24 hours. I have requested the patient to walk is much as possible and to get out of bed. In the case of a failed Gastrografin trial we might need to proceed with exploratory laparotomy despite de high risk of morbidity and mortality. Of note, vital signs Remained stable, laboratory workup shows significant improvement of kidney function without return to baseline. -Gastrografin trial today -After Gastrografin administration will keep NG tube clamped until tomorrow morning. -Continue electrolyte replacement and management of acute kidney injury as guided by medical team. -Please prepare 2 units of PRBCs and 1 unit of platelets in anticipation for possible OR tomorrow -All other management per primary team Attestations 2 Medical Necessity Statement*: patient will require 48 to 72 hours of hospital stay for management of SBO. Coding Level of Care Code 51187 Diagnoses Small bowel obstruction K56.609
[2023-06-19] MEDS: topiramate 25 mg Tablet 50 MG PO (09:19)
[2023-06-19] MEDS: gabapentin 400 mg Capsule PO (09:20)
[2023-06-19] MEDS: tamsulosin 0.4 mg Capsule 0.400000000000000022 MG PO (09:20)
--- NOTE | 2023-06-19 11:24 | PC.SOCIAL ---
Pg 2 IMM Explained to pt Pg 2 IMM. No questions voiced. Provided pt a copy. Initialed, dated, & timed a copy & placed in chart.
--- NOTE | 2023-06-19 11:27 | PM.PN ---
Subjective Subjective: Patient was seen this morning, he does report less abdominal distention, NG tube in place, he has had about 200 mL of his NG tube output, does report passing gas no bowel movement Vitals/I&O/Wt Last Vital Signs Temp 98.5 F 06/19/23 04:00 Pulse 82 06/19/23 10:46 Resp 21 H 06/19/23 10:46 BP 128/70 06/19/23 10:46 Pulse Ox 90 06/19/23 08:00 O2 Del Method Room Air 06/19/23 08:00 O2 Flow Rate 2 06/18/23 17:59 06/18/23 06/19/23 06/19/23 22:59 06:59 14:59 Intake Total 1300 / 1400 1000 / 2400 60 / 60 Output Total 600 / 1300 900 / 2200 650 / 650 Balance 700 / 100 100 / 200 -590 / -590 Weight last 48 hrs Weight 109.911 kg Physical Exam Const: COMMON NORMALS: no acute distress and patient oriented x3 Resp: COMMON NORMALS: normal respiratory effort, No retractions, No use of accessory muscles and clear to auscultation bilaterally AUSCULTATION: clear to auscultation bilaterally Cardio: COMMON NORMALS: regular rate, regular rhythm, S1 normal heart sound present and S2 normal heart sound present RATE: regular rate RHYTHM: regular rhythm HEART SOUNDS: S1 normal heart sound present and S2 normal heart sound present GI: OTHER: abdomen, soft, distended, scattered bowel sounds, no guarding, no rebound, diffuse tenderness Extremity: COMMON NORMALS: no pedal edema Neuro: COMMON NORMALS: patient oriented x3 Psych: COMMON NORMALS: mental status grossly normal Data 06/19/23 04:32 06/19/23 04:32 A&P Assessment and plan (1) Small bowel obstruction: CT/CT abdomen pelvis wo con [id number] IMPRESSION: 1. Multiple dilated small bowel loops to 4.1 cm with fluid levels consistent with an obstruction, potentially high-grade, negative for transition point seen. 2. Small bilateral fat containing inguinal hernias without bowel or inflammation. 3. Bibasilar ground-glass atelectasis versus minimal infiltrate. 4. Mild cardiomegaly. 5. Coronary artery atherosclerotic calcifications. 6. Cholecystectomy. 7. Left kidney cyst, negative for follow-up advis Plan ? Serial abdominal exams, ? Continue bowel rest, n.p.o., ? Gentle IV hydration, ? NG tube in place, ? Pain control Dilaudid, ? General surgery on consult ? Full code ? SCDs for DVT prophylaxis as there is complaints of hematemesis (2) Hematemesis: Reported some blood and some coffee-ground contents mixed into vomitus Recent EGD with some gastritis, ulcer. Plan ? Continue Protonix 40 IV twice daily next ?Carafate -Currently aspirin on hold, continue Plavix with a history of CAD SCD only for VTE prophylaxis (3) Hypovolemic shock: - Hypovolemic shock -Off pressors -Continue IV hydration -Monitor lactic acid (4) CAD (coronary artery disease): With recent GI bleeding, was taken off aspirin, continue Plavix, discussed risks with him and family. Hold beta-theresa due to hypotension. Qualifiers: Coronary Disease-Associated Artery/Lesion type: unspecified vessel or lesion type [place] vs. transplanted heart: [place] heart Associated angina: angina presence unspecified Qualified Code(s): I25.10 - Atherosclerotic heart disease of [place] coronary artery without angina pectoris (5) VIGNESH (acute kidney injury): VIGNESH, creatinine up to 1.3 suspected prerenal with hypovolemia, hypotension, also on lisinopril. (6) Hyponatremia: Hypovolemic hyponatremia with vomiting, no oral intake, receiving fluid resuscitation. Follow-up chemistry requested. Plan Systolic congestive heart failure: Not in exacerbation Diabetes: Bowel rest at current time, Accu-Cheks, insulin Lantus 5 unnits, sliding scale HTN: Monitor blood pressures, currently hypovolemic shock requiring pressor. Hold antihypertensives. Smoking addiction: Encourage cessation. Nicotine replacement as needed. Carotid artery stenosis JENAE normally on CPAP: Currently with bowel obstruction, abdominal distention, NGT, hold off for now BPH: Flomax COPD: Currently not in exacerbation, breathing treatments. Budesonide. Other medical problems. Requesting medications to be confirmed, please review and reconcile once available. plan for today gastrograffin study, hold plavix, plan on surgical intervention possibly tomorrow based on clinical progress Attestations Medical Necessity Statement*: Patient requires hospitalization, inpatient, greater than 2 midnights, for bowel obstruction, potentially proceeding to surgery tomorrow based on clinical progress, results of Gastrografin today, Plavix on hold, if he does proceed to surgery tomorrow will need blood products, platelets ordered for tomorrow, spoke to general surgery Diagnoses Small bowel obstruction K56.609 Hematemesis K92.0 Hypovolemic shock R57.1 Coronary artery disease involving [place] heart, angina presence unspecified, unspecified vessel or lesion type I25.10 Coronary Disease-Associated Artery/Lesion type: unspecified vessel or lesion type [place] vs. transplanted heart: [place] heart Associated angina: angina presence unspecified VIGNESH (acute kidney injury) N17.9 Hyponatremia E87.1
--- NOTE | 2023-06-19 12:09 | P.MISC_ITS ---
Miscellaneous Note Purpose of Documentation: Update on patient care Note: Patient was reevaluated at noon. He is doing better, endorses passing gas was able to ambulate is overall feeling better. We proceeded with Gastrografin administration 120 mL of Gastrografin diluted in 50 cc of sterile water was administered through NG tube. NG tube should remain clamped after this we will obtain an x-ray at 6 PM and another 1 tomorrow morning. Depending on progress ion patient may be able to have diet tomorrow after discontinuation of NG tube. As of now it appears that he is steadily improving. Vital signs have remained stable.
[2023-06-19 12:36] LABS: Glucose Point of Care 121 mg/dL (70-110)
--- NOTE | 2023-06-19 17:34 | PC.NURSE ---
Pt just seen and stated that he was having pain to his upper mid abdomen. I went to get pain med when pt called for his nurse. Went in to pt's room and he had vomitted approx 300+ ml's of bilious vomitus. Cleaned pt and gave pt zofran and hydromorphone and called .
--- NOTE | 2023-06-19 18:00 | XRR_ITS ---
PROCEDURE INFORMATION: Exam: XR Abdomen Exam date and time: 06/19/2023 6:05 PM Age: 72 years old Clinical indication: Abdominal pain; Additional info: Gastrografin trial for sbo, please bring gastrografin to the nursing station. I will TECHNIQUE: Imaging protocol: Radiologic exam of the abdomen. Views: Frontal supine view of the abdomen. 1 View. COMPARISON: CR XR KUB portable [id number] 06/17/2023 1:56 PM FINDINGS: Tubes, catheters and devices: Enteric tube with tip in the distal stomach. Lungs: Lung bases are clear. Gastrointestinal tract: Dilated loops of small bowel throughout the abdomen and pelvis. Large stool burden within the right hemicolon. Organs: Post cholecystectomy. Bones/joints: No acute osseous abnormality. Soft tissues: Oral enteric contrast is seen within the gastric lumen and loops of small bowel throughout the abdomen and pelvis. XR/XR abdomen 1V* [id number] IMPRESSION: 1. Persistent dilated loops of small bowel throughout the abdomen and pelvis in keeping with known small bowel obstruction. Increased distension of bowel loops in the right lower quadrant/right hemiabdomen compared to prior. 2. Large stool burden in the right hemicolon. 3. Oral contrast is seen within multiple loops of small bowel.
[2023-06-19] MEDS: ondansetron 2 mg/ML SDV 2 mL 4 MG IVP (18:01)
[2023-06-19 18:42] LABS: Glucose Point of Care 164 mg/dL (70-110)
--- NOTE | 2023-06-19 20:03 | P.MISC_ITS ---
Miscellaneous Note Purpose of Documentation: Update on patient care Note: I evaluated the patient this evening. patient had episode of bilious vomit. NG was connected to LIWS. Xray of the abdomen obtained and shows lack of progression of gastrografin. I have discussed the findings with patient and . the likelihood of improvement of symptoms is low, therefore we will continue overnight decompression and unless morning X-ray shows significant improvement we will proceed with exploratory laparotomy, lysis of adhesions and possible ostomy creation. I have discussed all risk and benefits to the family and patient, including the risk of bowel perforation, enterotomy, need for extensive intestinal resection, short bowel. need for paliative ostomy due to frozen abdomen, need for permanent ileostomy, intra abdominal abscess, wound related complications, need for open abdomen, bleeding, sepsis and . Patient has a extremely high risk of morbidity and mortality due to medical history and history of multiple intra- abdominal surgeries. In anticipation for OR tomorrow I have discussed with medical team and we will order 1 unit of platelets and 2 units of PRBC. we will reserve a bed in the ICU for post operative care. Patient and show understanding of the currnt clinical condition and are in agreement with surgery.
[2023-06-19] MEDS: insulin glargine 100 units/1 mL 5 UNIT SUBCUT (20:28)
[2023-06-19 22:03] LABS: Glucose Point of Care 167 mg/dL (70-110)
[2023-06-19] MEDS: insulin lispro 100 unit/1 mL SUBCUT (22:08)
[2023-06-20] VITALS (61 sets, daily range): BP systolic 110–179; BP diastolic 44–117; PULSE 67–102; RESP 16–36; TEMP 36.4–37.4; O2SAT 89–99
[2023-06-20 00:25] LABS: Glucose Point of Care 138 mg/dL (70-110)
[2023-06-20] MEDS: sucralfate 1 gm/10 mL Oral Liq UDC PO ×2 (01:08→07:13)
[2023-06-20] MEDS: pantoprazole 40 mg SDV IVP ×2 (01:08→12:00)
[2023-06-20] MEDS: HYDROmorphone 1 mg/mL INJ 1 mL IVP ×3 (01:58→11:49)
[2023-06-20 03:53] LABS: Basophils % 0.3 %; Eosinophils # 0.2 10^3/uL (0.0-0.8); Eosinophils % 1.6 %; Hematocrit 33.8 % (37-53); Lymphocytes % 10.2 %; Mean Corpuscular HGB Conc 31.4 g/dL (30-55); Mean Corpuscular Hemoglobin 28.2 pg (27-33); Mean Corpuscular Volume 89.9 fl (82-101); Mean Platelet Volume 10.7 fL (7.4-10.4); Monocytes # 1.1 10^3/uL (0.2-0.9); Monocytes % 11.5 %; Neutrophils # 7.06 10^3/uL (1.8-7.7); Nucleated Red Blood Cells % 0 %; Platelet Count 180 10^3/cmm (157-399); Red Blood Count 3.76 10^6/uL (3.85-5.65); Red Cell Distribution Width 13.1 % (12.1-15.1)
[2023-06-20 04:02] LABS: INR 1.23 (0.8-1.2)
[2023-06-20 04:08] LABS: Alanine Aminotransferase 9 U/L (0-41); Albumin Level 3.1 g/dL (3.5-5.2); Alkaline Phosphatase 87 U/L (40-130); Anion Gap 17.6 (5-19); Aspartate Amino Transferase 12 U/L (0-40); Blood Urea Nitrogen 23 mg/dL (8-23); C Reactive Protein 72.2 mg/L (0.0-4.9); Calcium 8.6 mg/dL (8.5-10.5); Carbon Dioxide 26 mmol/L (22-29); Chloride 104 mmol/L (98-107); Creatinine Clr Calc Pharmacy 61.9058; Globulin 3.2 g/dL (1.3-4.6); Glomerular Filtration Rate 50.1 mL/min (90-130); Glucose 144 mg/dL (65-115); Osmolality Calculated 302 mOsm/kg (285-295); Potassium 4.6 mmol/L (3.5-5.1); Sodium 143 mmol/L (136-145); Total Bilirubin 0.4 mg/dL (0.15-1.2); Total Protein 6.3 g/dL (6.6-8.7)
[2023-06-20 04:30] LABS: NT Pro B Type Natriuretic Pept 1350 pg/mL (0-125)
--- NOTE | 2023-06-20 05:00 | XRR_ITS ---
PROCEDURE INFORMATION: Exam: XR Abdomen Exam date and time: 06/20/2023 5:03 AM Age: 72 years old Clinical indication: Other: Sbo TECHNIQUE: Imaging protocol: Radiologic exam of the abdomen. Views: Frontal supine view of the abdomen. 1 View. COMPARISON: 1. CR XR abdomen 1V* [id number] 06/19/2023 6:05 PM 2. CR XR KUB portable [id number] 06/17/2023 1:56 PM FINDINGS: Tubes, catheters and devices: Stable enteric tube terminates at the distal stomach. Gastrointestinal tract: Continued small bowel loop dilatation measuring up to 4.5 cm in diameter with similar appearance of intraluminal small bowel contrast material. Again, prominent stool burden within the right hemicolon without visualized enteric contrast material within the colon. Intraperitoneal space: Right upper abdomen surgical clips. Bones/joints: Unremarkable. XR/XR abdomen 1V* [id number] IMPRESSION: Similar appearance of multiple small bowel loop dilatation and small bowel enteric contrast in keeping with known small bowel obstruction.
[2023-06-20] MEDS: lactated ringers 1,000 ML 100 ML IV (05:17)
--- NOTE | 2023-06-20 06:46 | XR_ITS ---
WS: [id number] KUB, AP portable supine, 06/20/2023 Clinical Data: follow up SBO Comparison: None. Findings: The small bowel loops remain dilated. The Gastrografin remains within the dilated small bowel loops. No abnormal intraabdominal masses or calcifications are seen. Nasogastric tube appears to end in the body of the stomach. There are right upper quadrant clips from a cholecystectomy. Impression: No change in small bowel obstruction.
[2023-06-20 07:26] LABS: Glucose Point of Care 133 mg/dL (70-110)
[2023-06-20 10:37] LABS: Glucose Point of Care 134 mg/dL (70-110)
--- NOTE | 2023-06-20 11:38 | P.PN_ITS ---
Subjective 2 Subjective: Patient was seen this morning, family members at bedside, continues to have complaint of abdominal distention, no bowel movement overnight no passage of gas overnight, does have diffuse abdominal pain, NG tube in place, we discussed plans on surgical intervention today, discussed risk and benefits, discussed morbidity and mortality, voiced understanding, all questions answered, agreed to proceed, I had a detailed discussion about patient's cardiac status and surgery, especially as Plavix has been held, he does have a risk of cardiovascular mortality, however given his bowel obstruction he needs to have surgical intervention, discussed risks including but limited to cardiovascular events During and after surgery, he voiced understanding, all questions answered patient family wants to proceed Vitals/I&O/Wt Last Vital Signs Temp 99.0 F 06/20/23 08:00 Pulse 83 06/20/23 08:00 Resp 24 H 06/20/23 08:00 BP 143/72 06/20/23 08:00 Pulse Ox 91 06/20/23 08:00 O2 Del Method Room Air 06/20/23 08:00 O2 Flow Rate 2 06/18/23 17:59 06/19/23 06/20/23 06/20/23 22:59 06:59 14:59 Intake Total 1240 / 1460 1000 / 2460 50 / 50 Output Total 550 / 1450 225 / 1675 Balance 690 / 10 775 / 785 50 / 50 Weight last 48 hrs Weight 109.911 kg Weight 109.911 kg Physical Exam 2 Const: COMMON NORMALS: no acute distress and patient oriented x3 Resp: COMMON NORMALS: normal respiratory effort, No retractions, No use of accessory muscles and clear to auscultation bilaterally AUSCULTATION: clear to auscultation bilaterally Cardio: COMMON NORMALS: regular rate, regular rhythm, S1 normal heart sound present and S2 normal heart sound present RATE: regular rate RHYTHM: r egular rhythm HEART SOUNDS: S1 normal heart sound present and S2 normal heart sound present GI: OTHER: Abdomen soft, distended, scattered bowel sounds, but significantly diminished, no guarding, no rebound, no rigidity, does have diffuse abdominal tenderness Extremity: COMMON NORMALS: no pedal edema Neuro: COMMON NORMALS: patient oriented x3 Psych: COMMON NORMALS: mental status grossly normal Data 06/20/23 03:41 06/20/23 03:41 A&P Assessment and plan (1) Small bowel obstruction: CT/CT abdomen pelvis wo con [id number] IMPRESSION: 1. Multiple dilated small bowel loops to 4.1 cm with fluid levels consistent with an obstruction, potentially high-grade, negative for transition point seen. 2. Small bilateral fat containing inguinal hernias without bowel or inflammation. 3. Bibasilar ground-glass atelectasis versus minimal infiltrate. 4. Mild cardiomegaly. 5. Coronary artery atherosclerotic calcifications. 6. Cholecystectomy. 7. Left kidney cyst, negative for follow-up advis Plan -Plan on surgical intervention today ? Serial abdominal exams, ? Continue bowel rest, n.p.o., ? Gentle IV hydration, ? NG tube in place, ? Pain control Dilaudid, ? General surgery on consult ? Full code ? SCDs for DVT prophylaxis, lovenox on hold for planned surgery (2) Hematemesis: Reported some blood and some coffee-ground contents mixed into vomitus, resolved Recent EGD with some gastritis, ulcer. Plan ? Continue Protonix 40 IV twice daily next ?Carafate -Currently aspirin on hold - Plavix with a history of CAD, on hold for surgery 48 hours SCD only for VTE prophylaxis (3) Hypovolemic shock: - Hypovolemic shock -Off pressors -Continue IV hydration -Monitor lactic acid (4) CAD (coronary artery disease): With recent GI bleeding, was taken off aspirin, continue Plavix, discussed risks with him and family. Hold beta-theresa due to hypotension. Qualifiers: Coronary Disease-Associated Artery/Lesion type: unspecified vessel or lesion type [place] vs. transplanted heart: [place] heart Associated angina: a ngina presence unspecified Qualified Code(s): I25.10 - Atherosclerotic heart disease of [place] coronary artery without angina pectoris (5) VIGNESH (acute kidney injury): VIGNESH, creatinine up to 1.4 suspected prerenal with hypovolemia, hypotension, also on lisinopril. (6) Hyponatremia: Hypovolemic hyponatremia with vomiting, no oral intake, receiving fluid resuscitation. Follow-up chemistry requested. Plan Systolic congestive heart failure: Not in exacerbation Diabetes: Bowel rest at current time, Accu-Cheks, insulin Lantus 5 unnits, sliding scale HTN: Monitor blood pressures, currently hypovolemic shock requiring pressor. Hold antihypertensives. Smoking addiction: Encourage cessation. Nicotine replacement as needed. Carotid artery stenosis JENAE normally on CPAP: Currently with bowel obstruction, abdominal distention, NGT, hold off for now BPH: Flomax COPD: Currently not in exacerbation, breathing treatments. Budesonide. Other medical problems. Requesting medications to be confirmed, please review and reconcile once available. plan for today surgical intervention today, will monitor postoperatively in the ICU Attestations 2 Medical Necessity Statement*: Patient requires hospitalization for bowel obstruction requiring surgical invention with underlying CAD Diagnoses Small bowel obstruction K56.609 Hematemesis K92.0 Hypovolemic shock R57.1 Coronary artery disease involving [place] heart, angina presence unspecified, unspecified vessel or lesion type I25.10 Coronary Disease-Associated Artery/Lesion type: unspecified vessel or lesion type [place] vs. transplanted heart: [place] heart Associated angina: angina presence unspecified VIGNESH (acute kidney injury) N17.9 Hyponatremia E87.1
--- NOTE | 2023-06-20 12:11 | P.HP_ITS ---
Same Day Surgery H&P Indication for Procedure/HPI DATE OF PROCEDURE: June 20, 2023 CHIEF COMPLAINT/INDICATIONFOR SURGICAL PROCEDURE: Small bowel obstruction PREOP DIAGNOSIS: Small bowel obstruction PLANNED PROCEDURE: Operation Date: 06/20/23 13:30 Proposed Procedures p Exploratory Laparotomy possible bowel resection and ostomy creation(Not Applicable) - Enrique Hannah MD I reevaluated the patient this morning, there is lack of progression, x-ray of the abdomen this morning show evidence of Gastrografin and multiple bowel loops but no progression of the small bowel obstruction. Patient still complains of abdominal distention and pain and has not passed any gas or had a bowel movement. I discussed with the patient and family member again the reasons related with proceeding with surgery which include high risk morbidity and also considerable risk of mortality due to patient clinical comorbidities as well as current clinical status. I have discussed with the and the patient that there is a high likelihood of needing an ostomy creation, there is likelihood for needing to leave the abdomen open in which case patient will require multiple abdominal interventions, there is also likelihood that after doing a laparotomy there may be pathology that make a curative operation impossible, patient and family member aware. All other recent benefits were discussed yesterday and are documented in my preoperative note, patient and family member were given of time to ask any questions all questions were answered to satisfaction. Medications/Allergies* Home Medications Medication Instructions Recorded Confirmed Type tamsulosin 0.4 mg capsule 0.4 mg PO QPM BPH 12/06/20 06/17/23 History cholecalciferol (vitamin D3) 25 25 mcg PO TID 12/13/22 06/17/23 History mcg (1,000 unit) tablet (Vitamin D3) gabapentin 400 mg capsule 400 mg PO TID 12/13/22 06/17/23 History glucose 4 gram chewable tablet 4 - 16 g PO Q15M PRN Hypoglycemia 12/13/22 06/17/23 History lisinopril 20 mg tablet 10 mg PO QAM 12/13/22 06/17/23 History melatonin 5 mg tablet 5 mg PO BEDTIME 12/13/22 06/17/23 History omega 8-etz-aox-fish oil 1,000 mg 1 cap PO BID 12/13/22 06/17/23 History (120 mg-180 mg) capsule (Fish Oil) polyethylene glycol 3350 17 17 g PO BID 12/13/22 06/17/23 History gram/dose oral powder (Miralax) potassium chloride 20 mEq 10 meq PO QAM 12/13/22 06/17/23 History tablet,extended release sennosides 8.6 mg-docusate sodium 1 tab PO BID 12/13/22 06/17/23 History 50 mg tablet (Senexon-S) folic acid 400 mcg tablet 400 mcg PO DAILY 04/19/23 06/17/23 History furosemide 20 mg tablet 20 mg PO QAM 04/19/23 06/17/23 History insulin glargine 100 unit/mL (3 100 unit SUBCUT BEDTIME 04/19/23 06/17/23 History mL) subcutaneous pen ipratropium 20 mcg-albuterol 100 1 puff inhalation QID 04/19/23 06/17/23 History mcg/actuation mist for inhalation rosuvastatin 40 mg tablet 40 mg PO QPM 04/19/23 06/17/23 History ascorbic acid (vitamin C) 500 mg 500 mg PO BID 06/09/23 06/17/23 History tablet (Vitamin C) insulin regular human 100 unit/mL 20 unit SUBCUT TID 06/09/23 06/17/23 History (3 mL) subcutaneous pen clopidogrel 75 mg tablet 75 mg PO DAILY 06/17/23 06/17/23 History pantoprazole 40 mg tablet,delayed 40 mg PO DAILY 06/17/23 06/17/23 History release (Protonix) sucralfate 1 gram tablet 1 g PO DAILY 06/17/23 06/17/23 History Allergies/Adverse Reactions Allergy/AdvReac Type Severity Reaction Status Date / Time adhesive tape Allergy ALGY-Rash Verified 06/09/23 11:04 Current Medications: Generic Name Dose Route Start Last Admin Trade Name Freq PRN Reason Stop Dose Admin Acetaminophen 650 mg 06/17/23 00:21 06/17/23 13:11 Acetaminophen 325 Mg Tablet PO 650 mg Q6H PRN Administration Mild/Mod Pain Or Temp >/= 101 Atorvastatin Calcium 80 mg 06/17/23 18:00 06/19/23 17:51 Atorvastatin 40 Mg Tablet PO Not Given QPM TORSTEN Gabapentin 400 mg 06/17/23 16:21 06/20/23 08:07 Gabapentin 400 Mg Capsule PO Not Given TID TORSTEN Hydromorphone HCl 1 mg 06/18/23 10:28 06/20/23 11:49 Hydromorphone 1 Mg/Ml Inj 1 Ml IVP 1 mg Q4H PRN Administration PAIN Lactated Ringer's 1,000 mls @ 100 mls/hr 06/17/23 00:21 06/20/23 05:17 Lactated Ringers IV 100 mls/hr .Q10H TORSTEN Administration Insulin Glargine 5 unit 06/17/23 00:21 06/19/23 20:28 Insulin Glargine 100 Units/1 Ml SUBCUT 5 unit BEDTIME TORSTEN Administration Insulin Human Lispro 0 unit 06/17/23 01:00 06/20/23 11:46 Insulin Lispro 100 Unit/1 Ml SUBCUT Not Given Q6H [facility] Protocol Non-Formulary Medication 400 mcg 06/18/23 09:00 06/20/23 08:07 Folic Acid PO Not Given DAILY [facility] Ondansetron HCl 4 mg 06/17/23 00:21 06/19/23 18:01 Ondansetron 2 Mg/Ml Sdv 2 Ml IVP 4 mg Q8H PRN Administration vomiting, or N/V if npo Pantoprazole Sodium 40 mg 06/17/23 01:00 06/20/23 12:00 Pantoprazole 40 Mg Sdv IVP 40 mg Q12H TORSTEN Administration Sucralfate 1 gm 06/18/23 02:30 06/20/23 12:01 Sucralfate 1 Gm/10 Ml Oral Liq Udc PO Not Given Q6H [facility] Tamsulosin HCl 0.4 mg 06/17/23 09:00 06/20/23 08:07 Tamsulosin 0.4 Mg Capsule PO Not Given DAILY [facility] Topiramate 50 mg 06/17/23 18:00 06/20/23 08:07 Topiramate 25 Mg Tablet PO Not Given BID [facility] Pertinent History/Comorbid Conditions* Medical History (Updated 06/17/23 @ 00:24 by Mohit Carvalho DO) Tobacco abuse NSTEMI (non-ST elevated myocardial infarction) Systolic CHF with reduced left ventricular function, NYHA class 2 Bilateral carotid artery stenosis Erectile dysfunction Urinary retention Cutaneous wart Current smoker JENAE on CPAP Acute cystitis without hematuria Phimosis BPH NOS w ur obs/LUTS COPD (chronic obstructive pulmonary disease) Hypertension Diabetes Complex partial epilepsy with generalization Myocardial infarct Chronic headache CAD (coronary artery disease) Balanitis Surgical History (Updated 06/16/23 @ 23:33 by Sukhi Malagon MD) History of cardiac catheterization H/O heart artery stent S/P carotid endarterectomy H/O circumcision History of laparotomy History of appendectomy History of coronary artery bypass graft Family History (Updated 01/27/21 @ 10:31 by Edwige King LPN) Father, at age 89 Mother, at age 103 CAD (coronary artery disease) Mesothelioma Congestive heart failure (CHF) Father Hypertension Social History Smoking and tobacco/nicotine status: current every day tobacco/nicotine user cigarettes Packs smoked per day: 1.5 Years cigarettes smoked: 52 [ Other cigarette details: was 2ppd] Alcohol intake: never Substance/Drug Use: never Marital status: service: Yes Current occupational status: retired and disabled Do you think of yourself as: Straight/Heterosexual Pertinent Exam Findings alert, oriented x 3, clear to auscultation bilaterally and regular rate & rhythm Recommendations Surgery/Procedure today Coding Level of Care Code Acute Code for Chg Lidia
--- NOTE | 2023-06-20 12:13 | PC.NURSE ---
Pt transported to Pre Op at 1210 by JOSE LUIS Patel via wheelchair.
--- NOTE | 2023-06-20 12:27 | ANES.PREANE2 ---
Pre-Anesthetic Assessment Height/Weight: Height 1.8 m Weight 109.911 kg Temp Pulse Resp BP Pulse Ox O2 Del Method O2 Flow Rate 98.4 F 75 24 H 152/48 91 Room Air 2 06/20/23 11:54 06/20/23 11:54 06/20/23 11:54 06/20/23 11:54 06/20/23 08:00 06/20/23 08:00 06/18/23 17:59 Preop Diagnosis: Small bowel obstruction Operation Date: 06/20/23 13:30 Proposed Procedures p Exploratory Laparotomy possible bowel resection and ostomy creation(Not Applicable) - Enrique Hannah MD Familial anesthetic complications: none Was Beta Ricky taken within 24 hours: Yes Was Clonidine taken within 24 hours: N/A Last intake: Npo for last few days Social Tobacco 1 pack(s) per day 35 pack years Exam alert, oriented x 3 and clear to auscultation bilaterally (coarse overall with scattered exp wheeze) Airway Submandibular: within normal limits Cervical ROM: within normal limits Mallampati: Class III Dentition: false and full (upper and lower) History/ROS No significant history except as noted Pulmonary Chronic Obstructive Pulmonary Disease, Cough and Sleep Apnea CV/HEM Stable Angina, Coronary Artery Disease, Congestive Heart Failure, Hypertension and Myocardial Infarction last episode chest pain 3 weeks. November CHF Echo 06/10 EF 50 -55%. MVR trace tricuspid and pulmonic regurg Chronic Renal Failure Hepatic None reported GI SBO at present Metabolic Diabetes Mellitus Musc/skel Lower Back Pain Neuropsych None reported Anesthetic Plan ASA status: 3 Anesthesia: Anesthesia Evaluation and General Risk of > 500 ml blood loss (7ml/kg in children): Yes, adequate IV access and fluids planned Medications/Allergies Home Medications Medication Instructions Recorded Confirmed Last Taken Type topiramate 50 mg tablet (Topamax) 50 mg PO BID #60 tabs 07/07/19 06/17/23 06/09/23 Rx tamsulosin 0.4 mg capsule 0.4 mg PO QPM BPH 12/06/20 06/17/23 06/08/23 History cholecalciferol (vitamin D3) 25 25 mcg PO TID 12/13/22 06/17/23 06/09/23 History mcg (1,000 unit) tablet (Vitamin D3) gabapentin 400 mg capsule 400 mg PO TID 0806/17/23 06/09/23 History glucose 4 gram chewable tablet 4 - 16 g PO Q15M PRN Hypoglycemia 12/13/22 06/17/23 Unknown History lisinopril 20 mg tablet 10 mg PO QAM 12/13/22 06/17/23 06/09/23 History melatonin 5 mg tablet 5 mg PO BEDTIME 12/13/22 06/17/23 06/08/23 History omega 0-tzc-xuw-fish oil 1,000 mg 1 cap PO BID 12/13/22 06/17/23 06/09/23 History (120 mg-180 mg) capsule (Fish Oil) polyethylene glycol 3350 17 17 g PO BID 12/13/22 06/17/23 Unknown History gram/dose oral powder (Miralax) potassium chloride 20 mEq 10 meq PO QAM 12/13/22 06/17/23 06/09/23 History tablet,extended release sennosides 8.6 mg-docusate sodium 1 tab PO BID 12/13/22 06/17/23 Unknown History 50 mg tablet (Senexon-S) nitroglycerin 0.4 mg sublingual 0.4 mg sublingual Q5M PRN chest 02/25/23 06/17/23 Unknown Rx tablet pain #30 tabs folic acid 400 mcg tablet 400 mcg PO DAILY 04/19/23 06/17/23 06/09/23 History furosemide 20 mg tablet 20 mg PO QAM 04/19/23 06/17/23 06/09/23 History insulin glargine 100 unit/mL (3 100 unit SUBCUT BEDTIME 04/19/23 06/17/23 06/08/23 History mL) subcutaneous pen ipratropium 20 mcg-albuterol 100 1 puff inhalation QID 04/19/23 06/17/23 06/09/23 History mcg/actuation mist for inhalation rosuvastatin 40 mg tablet 40 mg PO QPM 04/19/23 06/17/23 06/08/23 History ascorbic acid (vitamin C) 500 mg 500 mg PO BID 06/09/23 06/17/23 06/09/23 History tablet (Vitamin C) insulin regular human 100 unit/mL 20 unit SUBCUT TID 06/09/23 06/17/23 06/09/23 History (3 mL) subcutaneous pen metoprolol succinate 25 mg 12.5 mg (1/2 x 25 mg) PO DAILY #30 06/11/23 06/17/23 Unknown Rx tablet,extended release 24 hr tabs (Toprol XL) clopidogrel 75 mg tablet 75 mg PO DAILY 06/17/23 06/17/23 Unknown History pantoprazole 40 mg tablet,delayed 40 mg PO DAILY 06/17/23 06/17/23 Unknown History release (Protonix) sucralfate 1 gram tablet 1 g PO DAILY 06/17/23 06/17/23 Unknown History Allergies Allergy/AdvReac Type Severity Reaction Status Date / Time adhesive tape Allergy ALGY-Rash Verified 06/09/23 11:04 Current Medications Generic Name Dose Route Start Last Admin Trade Name Freq PRN Reason Stop Dose Admin Acetaminophen 650 mg 06/17/23 00:21 06/17/23 13:11 Acetaminophen 325 Mg Tablet PO 650 mg Q6H PRN Administration Mild/Mod Pain Or Temp >/= 101 Atorvastatin Calcium 80 mg 06/17/23 18:00 06/19/23 17:51 Atorvastatin 40 Mg Tablet PO Not Given QPM TORSTEN Gabapentin 400 mg 06/17/23 16:21 06/20/23 08:07 Gabapentin 400 Mg Capsule PO Not Given TID TORSTEN Hydromorphone HCl 1 mg 06/18/23 10:28 06/20/23 11:49 Hydromorphone 1 Mg/Ml Inj 1 Ml IVP 1 mg Q4H PRN Administration PAIN Lactated Ringer's 1,000 mls @ 100 mls/hr 06/17/23 00:21 06/20/23 12:14 Lactated Ringers IV 0 mls/hr .Q10H [facility] Infusion Insulin Glargine 5 unit 06/17/23 00:21 06/19/23 20:28 Insulin Glargine 100 Units/1 Ml SUBCUT 5 unit BEDTIME TORSTEN Administration Insulin Human Lispro 0 unit 06/17/23 01:00 06/20/23 11:46 Insulin Lispro 100 Unit/1 Ml SUBCUT Not Given Q6H [facility] Protocol Non-Formulary Medication 400 mcg 06/18/23 09:00 06/20/23 08:07 Folic Acid PO Not Given DAILY [facility] Ondansetron HCl 4 mg 06/17/23 00:21 06/19/23 18:01 Ondansetron 2 Mg/Ml Sdv 2 Ml IVP 4 mg Q8H PRN Administration vomiting, or N/V if npo Pantoprazole Sodium 40 mg 06/17/23 01:00 06/20/23 12:00 Pantoprazole 40 Mg Sdv IVP 40 mg Q12H TORSTEN Administration Sucralfate 1 gm 06/18/23 02:30 06/20/23 12:01 Sucralfate 1 Gm/10 Ml Oral Liq Udc PO Not Given Q6H [facility] Tamsulosin HCl 0.4 mg 06/17/23 09:00 06/20/23 08:07 Tamsulosin 0.4 Mg Capsule PO Not Given DAILY [facility] Topiramate 50 mg 06/17/23 18:00 06/20/23 08:07 Topiramate 25 Mg Tablet PO Not Given BID TORSTEN PFSH Anesthesia Medical History (Updated 06/17/23 @ 00:24 by Mohit Carvalho DO) Tobacco abuse NSTEMI (non-ST elevated myocardial infarction) Systolic CHF with reduced left ventricular function, NYHA class 2 Bilateral carotid artery stenosis Erectile dysfunction Urinary retention Cutaneous wart Current smoker JENAE on CPAP Acute cystitis without hematuria Phimosis BPH NOS w ur obs/LUTS COPD (chronic obstructive pulmonary disease) Hypertension Diabetes Complex partial epilepsy with generalization Myocardial infarct Chronic headache CAD (coronary artery disease) Balanitis Surgical History (Updated 06/16/23 @ 23:33 by Sukhi Malagon MD) History of cardiac catheterization H/O heart artery stent S/P carotid endarterectomy H/O circumcision History of laparotomy History of appendectomy History of coronary artery bypass graft Family History Mother , at age 103 No problems noted. Father , at age 89 Congestive heart failure (CHF) Other CAD (coronary artery disease) Hypertension Mesothelioma Social History Smoking and tobacco/nicotine status: current every day tobacco/nicotine user cigarettes Packs smoked per day: 1.5 Years cigarettes smoked: 52 [ Other cigarette details: was 2ppd] Alcohol intake: never Substance/Drug Use: never Marital status: service: Yes Current occupational status: retired and disabled Do you think of yourself as: Straight/Heterosexual Data Anesthesia 06/20/23 03:41 06/20/23 03:41 Short CBC 06/19/23 06/20/23 Range/Units 04:32 03:41 WBC 7.90 9.30 (3.29-11.43) 10^3/uL Hgb 10.30 L 10.60 L (11.27-16.99) g/dL Hct 33.1 L 33.8 L (37-53) % MCV 92.5 89.9 (82-101) fl Plt Count 146 L 180 (157-399) 10^3/cmm Neut % (Auto) 73.7 76.0 % Neut # (Auto) 5.83 7.06 (1.8-7.7) 10^3/uL BMP 06/19/23 06/20/23 04:32 03:41 Sodium 139 143 Potassium 4.3 4.6 Chloride 103 104 Carbon Dioxide 22 26 BUN 24 H 23 Creatinine 1.3 H 1.4 H Glucose 81 144 H Calcium 8.1 L 8.6 Cardiac Enzymes 06/19/23 06/20/23 Range/Units 04:32 03:41 Creatine Kinase 33 L (39-308) U/L NT-Pro-B Natriuret Pep 1033 H 1350 H (0-125) pg/mL Liver Function 06/19/23 06/20/23 Range/Units 04:32 03:41 Total Bilirubin 0.4 0.4 (0.15-1.2) mg/dL AST 12 12 (0-40) U/L ALT 9 9 (0-41) U/L Alkaline Phosphatase 62 87 (40-130) U/L Albumin 3.0 L 3.1 L (3.5-5.2) g/dL Blood Bank 06/19/23 20:15 Blood Type O Positive Rho(D) Type Rh positive Antibody Screen Negative Coags 06/19/23 06/20/23 04:32 03:41 PT 14.70 15.90 H INR 1.11 1.23 H C-Reactive Protein 53.8 H 72.2 H Cardiac Studies: Echocardiogram 06/10/23 Sestamibi Stress Test (Cardiology) 05/21/22
[2023-06-20] MEDS: ceFAZolin 2,000 MG in sodium chloride 0.9% (plus) 50 ML 100 MG IV ×2 (12:48→22:13)
--- NOTE | 2023-06-20 13:52 | PC.NURSE ---
This nurse gave report to Vicki in ICU as pt will transfer to that department following surgery.
--- NOTE | 2023-06-20 16:15 | P.OP_ITS ---
Operative Report Date of procedure: June 20, 2023 Pre-op diagnosis: Small bowel obstruction Post-op diagnosis: Adhesive small bowel obstruction Post-op findings: There was significant additions to the level of the right upper quadrant, from the omentum to the anterior abdominal wall and from a loop of bowel to the surface of the liver, this loop of bowel was also adhered to the omentum and made that very sharp angulation causing the obstruction. Up to the level of this angulation the bowel was distended semisolid fecal content could be palpated at this level, after the level of this angulation bowel was completely decompressed. No additional areas of concern in the small bowel, colon was palpated test no evidence of masses or other significant pathology. Procedure done: Exploratory laparotomy, lysis of additions Specimens removed/disposition: None Surgeon: Enrique Hannah MD, Ge Mckenzie DO Investment Banking Associate: CHANDRIKA OR Staff Estimated blood loss: 100 Complications: None apparent Brief History: Is a 72-year-old male with multiple medical comorbidities and history of open cholecystectomy who presented with a clinical picture concerning for a small bowel obstruction. Nonoperative management was attempted, he had a Gastrografin trial for 8 hours after decompression and he failed. Therefore we decided to proceed to the operating room for exploratory laparotomy and additional interventions. All the risk and benefits of the procedure were discussed with the patient and family members and agreed to proceed. Procedure: Patient was brought into the OR. He was placed in the supine position. General anesthesia was given. The abdomen was prepped and draped in the usual sterile fashion. Timeout was conducted. The abdomen was accessed via laparotomy incision from the epigastrium to 2 cm below the umbilicus. The incision was deepened carefully up to the level of the anterior abdominal wall fascia with electrocautery, the anterior abdominal wall fascia was opened at the level of the epigastrium and the falciform ligament was sharply opened. No significant additions were noted from the bowel to the midline and the complete laparotomy incision was performed with electrocautery. Once the abdomen was accessed I proceeded to eviscerate the small bowel, this was noted to be very dilated and edematous. The eviscerated bowel was run from the level of the ligament of Treitz distally, almost at the level of the distal jejunum one of the loop of the bowel was noted to be deeply adhered to the right upper quadrant omentum and liver, the bowel distal to this area addition was noted to be completely decompressed. When I was about to start immobilization and adhesiolysis I was informed by the anesthesia team that the patient had an episode of desaturation. The surgery was stopped to allow for anesthesia team to proceed with additional interventions. After repair about 10 minutes the patient was completely stable, the probable cause of the desaturation episode and hypotension was likely transfusion reaction to platelets that were given to the patient in order to reverse his coagulopathy for the procedure. Once agree with the anesthesia team I proceeded with that the cellulitis. I sharply took down adhesions from the omentum to the anterior abdominal wall and from the omentum to the small bowel. These allow me to better visualize the loop of bowel diving into the right upper quadrant, this was noted to be deeply adhered to the capsule of the liver and the left lateral abdominal wall. With gentle blunt dissection I was able to encircle the loop of bowel that was of this to the liver and with careful dissection and Metzenbaum scissors I was able to lyse all the adhesions, in the process of lysis of adhesions a small tear in the liver capsule was noted, minimal bleeding was controlled with electrocautery and Surgicel was placed in this area. Once the loop of bowel was completely freed I evaluated for integrity, the valve was noted to be viable with no evidence of serosal tears or perforation. The palate this area was edematous and it was noted to have semisolid fecal matter content upon palpation. For this reason I decided to ask for intraoperative consultation to my colleague Dr. Mckenzie to decide whether or not there was a need for resection. Dr. Mckenzie scrubbed into the procedure and after palpation of the intestine and intraoperative discussion we decided that there was no need for resection as after relieving the obstruction likely the fecal material will progress due to the pressure gradient. Proceeded to run the bowel from the ligament of Treitz to the terminal ileum no further areas of obstruction were noted. The colon appeared healthy and I could not palpate any masses or other significant pathology. At the level of the stomach the NG tube was palpated and noted to be in good position. Hemostasis was verified. We then proceeded to do a complete count of instruments and lap pads and it was correct. I then proceeded to close the abdomen with #1 looped PDS. Once the fascia was closed the wound was irrigated and the skin was closed with jason. Sterile dressing was applied. At this point anesthesia team kindly proceeded to do a tap block. An abdominal binder was applied. The patient was extubated and transferred to the PACU in stable condition. At the end of the procedure all counts were correct.
--- NOTE | 2023-06-20 18:00 | PC.NURSE ---
NG tube secured to nose. Placement confirmed with air auscultation. Connected to LIS. [place] secured to L leg. 700 ml urine out. Dressing soiled and changed to R neck central line.
[2023-06-20] MEDS: ondansetron 2 mg/ML SDV 2 mL 4 MG IVP (18:19)
[2023-06-20] MEDS: fentaNYL 50 mcg/mL INJ 2mL IVP (18:19)
--- NOTE | 2023-06-20 18:25 | PC.NURSE ---
Report called to Vicki in ICU. VSS.
--- NOTE | 2023-06-20 18:59 | XRR_ITS ---
PROCEDURE INFORMATION: Exam: XR Chest Exam date and time: 06/20/2023 7:53 PM Age: 72 years old Clinical indication: Device placement; Patient HX: Right internal jugular central was already placed before picc; Additional info: Post picc insertion, brandie placing in icu 6. Will probably be ready at 1940 TECHNIQUE: Imaging protocol: Radiologic exam of the chest. Views: 1 view. COMPARISON: CR XR chest 1V portable [id number] 06/17/2023 9:59 AM FINDINGS: Tubes, catheters and devices: New right-sided PICC positioned with its tip near the upper cavoatrial junction. The NG tube tracks into the stomach and off the field of view. Lungs: Unremarkable. No consolidation. Pleural spaces: Small bilateral pleural effusions with irregular opacities in the left lung base. Heart/Mediastinum: Unremarkable. No cardiomegaly. Bones/joints: Prior median sternotomy. XR/XR chest 1V portable [id number] IMPRESSION: 1. New right-sided PICC positioned with its tip near the upper cavoatrial junction. 2. Right IJ approach central venous catheter redemonstrated and similar in position.
--- NOTE | 2023-06-20 19:20 | PC.NURSE ---
Dr Buddy Benjamin for pain control. Patient doing well in recovery. Denies nausea after Zofran. Has some pain while talking with nurses.
[2023-06-20] MEDS: HYDROmorphone 1 mg/mL INJ 1 mL 0.5 MG IVP ×2 (19:21→20:36)
--- NOTE | 2023-06-20 19:55 | PC.NURSE ---
Triple lumen PICC placed to right basilic vein. Referred to vascular access nurse for PICC placement for TPN. Pt currently has right IJ in place. Plan is to remove IJ once PICC placed. Pt spouse, Reta, called via phone. Risks and benefits discussed and consent obtained by two nurses via phone. Right arm assessed with right basilic vein measuring 5.2 mm, straight, and apparent best choice for placement. Using sterile technique and MST, right basilic vein accessed x 1 stick. Mid-arm circumference measured 10 cm from right AC 33 cm. Trimmed cath 46 cm with 0 cm external length noted. CXR appears to show tip in distal SVC, awaiting radiologist report. Line secured with stat-lock. Insertion site covered with Biopatch and TSM. Pt going to CSU following PACU.
--- NOTE | 2023-06-20 20:00 | PC.NURSE ---
PICC placed by Leandra AMAYA in recovery.
--- NOTE | 2023-06-20 20:19 | PC.NURSE ---
Dr Hannah called due to no NG tube output to LIS in recovery. Dr ordered xray of abd and to keep to LIS. Order placed.
--- NOTE | 2023-06-20 20:23 | XRR_ITS ---
PROCEDURE INFORMATION: Exam: XR Abdomen Exam date and time: 06/20/2023 8:49 PM Age: 72 years old Clinical indication: Device placement; Gi device; Nasogastric tube; Additional info: Ng tube placement TECHNIQUE: Imaging protocol: Radiologic exam of the abdomen. Views: Frontal supine view of the abdomen. 1 View. COMPARISON: CR XR abdomen 1V* [id number] 06/20/2023 7:18 AM FINDINGS: Tubes, catheters and devices: The NG tube tracks into the distal stomach. The right-sided PICC and right IJ approach central venous catheter are redemonstrated. Multiple air filled dilated loops of small bowel in the left upper abdomen. Gastrointestinal tract: See Tubes, catheters and devices finding. Bones/joints: Unremarkable. XR/XR abdomen 1V* [id number] IMPRESSION: The NG tube tracks into the distal stomach.
--- NOTE | 2023-06-20 20:23 | ANE.PACU2 ---
Inpatient post-anesthesia follow up: Airway intact: Yes Vital signs: Temperature 99.2 F Pulse Rate 89 Respiratory Rate 26 Blood Pressure 137/56 Pulse Oximetry 95 Oxygen Delivery Me thod [ Room Air Current Rate & Del martha] Oxygen Delivery Me thod Nasal Cannula Oxygen Flow Rate [ Current Rate 2 & Delivery] Oxygen Flow Rate 3 Fraction of Inspir ed Oxygen Hydration adequate: Yes Nausea and vomiting: No Pain level: 3 Mental status: Baseline
--- NOTE | 2023-06-20 20:26 | PC.NURSE ---
Pt repositioned and pillow placed. Verbalized comfort. SCDs in place. No bowel sounds at this time.
--- NOTE | 2023-06-20 20:52 | XRR_ITS ---
PROCEDURE INFORMATION: Exam: XR Abdomen Exam date and time: 06/20/2023 8:57 PM Age: 72 years old Clinical indication: Device placement; Gi device; Nasogastric tube; Additional info: Ng placement TECHNIQUE: Imaging protocol: Radiologic exam of the abdomen. Views: Frontal supine view of the abdomen. 1 View. COMPARISON: CR (ABDOMEN, ) 06/20/2023 8:49 PM FINDINGS: Tubes, catheters and devices: NG tube tracks into the stomach. Right-sided PICC positioned with its tip near the upper SVC. The right IJ approach central venous catheter is positioned near the upper cavoatrial junction. Lungs: Opacities in the left lung base medially. Gastrointestinal tract: Dilated air-filled loops of small bowel partially visualized in the left upper abdomen. Bones/joints: Unremarkable. XR/XR abdomen 1V* [id number] IMPRESSION: 1. NG tube tracks into the stomach. 2. Right-sided PICC positioned with its tip near the upper SVC. 3. The right IJ approach central venous catheter is positioned near the upper cavoatrial junction.
--- NOTE | 2023-06-20 20:58 | PC.NURSE ---
Patient transferred to floor bed with ease. Nurse Lulú and GABY in room to assist with transfer and assume care.
--- NOTE | 2023-06-20 21:44 | PC.NURSE ---
Patient transferred from PACU at 2100. Abdominal binder clean and in place. Patient placed on continuous VS and telemetry, NG tube placed on low intermittent suction. Patient repositioned in bed for comfort, bedside table and call light within reach.
[2023-06-20 21:56] LABS: Glucose Point of Care 197 mg/dL (70-110)
[2023-06-21] VITALS (17 sets, daily range): BP systolic 132–164; BP diastolic 47–71; PULSE 75–94; RESP 15–30; TEMP 36.7–37.2; O2SAT 86–96
[2023-06-21] MEDS: lactated ringers 1,000 ML 100 ML IV ×2 (01:23→18:26)
[2023-06-21] MEDS: pantoprazole 40 mg SDV IVP ×2 (01:24→13:52)
[2023-06-21] MEDS: HYDROmorphone 1 mg/mL INJ 1 mL IVP ×3 (01:27→09:19)
[2023-06-21 03:57] LABS: Basophils % 0.1 %; Hematocrit 33.3 % (37-53); Lymphocytes # 0.5 10^3/uL (0.8-4.8); Lymphocytes % 4.7 %; Mean Corpuscular HGB Conc 31.2 g/dL (30-55); Mean Corpuscular Hemoglobin 28.7 pg (27-33); Mean Platelet Volume 10.7 fL (7.4-10.4); Monocytes # 0.7 10^3/uL (0.2-0.9); Monocytes % 6.1 %; Neutrophils # 9.57 10^3/uL (1.8-7.7); Neutrophils % 88.6 %; Nucleated Red Blood Cells % 0 %; Platelet Count 192 10^3/cmm (157-399); Red Blood Count 3.62 10^6/uL (3.85-5.65); Red Cell Distribution Width 13.1 % (12.1-15.1)
[2023-06-21 04:10] LABS: INR 1.25 (0.8-1.2)
[2023-06-21 04:26] LABS: Alanine Aminotransferase 9 U/L (0-41); Albumin Level 3.1 g/dL (3.5-5.2); Alkaline Phosphatase 63 U/L (40-130); Anion Gap 16.7 (5-19); Aspartate Amino Transferase 17 U/L (0-40); Blood Urea Nitrogen 27 mg/dL (8-23); Carbon Dioxide 27 mmol/L (22-29); Chloride 106 mmol/L (98-107); Creatinine Clr Calc Pharmacy 51.0318; Globulin 3.1 g/dL (1.3-4.6); Glucose 195 mg/dL (65-115); Osmolality Calculated 310 mOsm/kg (285-295); Potassium 4.7 mmol/L (3.5-5.1); Sodium 145 mmol/L (136-145); Total Bilirubin 0.3 mg/dL (0.15-1.2); Total Protein 6.2 g/dL (6.6-8.7)
[2023-06-21 04:34] LABS: NT Pro B Type Natriuretic Pept 1985 pg/mL (0-125)
[2023-06-21 04:35] LABS: C Reactive Protein 84.2 mg/L (0.0-4.9); Magnesium 1.9 mg/dL (1.7-2.3); Phosphorus 3.6 mg/dL (2.5-4.5); Procalcitonin 1.07 ng/mL (0-0.5)
[2023-06-21] MEDS: ceFAZolin 2,000 MG in sodium chloride 0.9% (plus) 50 ML 100 MG IV ×3 (05:01→20:05)
--- NOTE | 2023-06-21 06:00 | PC.NURSE ---
Addendum entered by Skye Romero RN 06/21/23 06:02: NG repositioned at 1855 last night. Original Note: Dr Hannah instructed to retract NG 5 cm after first xray. Second xray confirmed appropriate position. Pt tolerated well. NG secured to nose and to LIS.
[2023-06-21 06:23] LABS: Glucose Point of Care 175 mg/dL (70-110)
[2023-06-21 07:27] LABS: Glucose Point of Care 193 mg/dL (70-110)
--- NOTE | 2023-06-21 10:58 | PM.PN ---
Vitals/I&O/Wt Last Vital Signs Temp 98.9 F 06/21/23 08:00 Pulse 89 06/21/23 08:00 Resp 20 H 06/21/23 09:19 BP 133/66 06/21/23 08:00 Pulse Ox 86 L 06/21/23 09:35 O2 Del Method Nasal Cannula 06/21/23 09:35 O2 Flow Rate 5 06/21/23 09:35 06/20/23 06/21/23 06/21/23 22:59 06:59 14:59 Intake Total 600 / 1445 100 / 1545 Output Total 1700 / 1700 750 / 2450 Balance -1100 / -255 -650 / -905 Weight last 48 hrs Weight 109.86 kg Weight 110.132 kg Weight 109.911 kg Physical Exam Const: COMMON NORMALS: no acute distress and patient oriented x3 Resp: COMMON NORMALS: normal respiratory effort, No retractions, No use of accessory muscles and clear to auscultation bilaterally AUSCULTATION: clear to auscultation bilaterally Cardio: COMMON NORMALS: regular rate, regular rhythm, S1 normal heart sound present and S2 normal heart sound present RATE: regular rate RHYTHM: regular rhythm HEART SOUNDS: S1 normal heart sound present and S2 normal heart sound present GI: COMMON NORMALS: Soft to palpation INSPECTION: Yes abdominal distension PALPATION: Yes Soft to palpation, No Tenderness to palpation present (GI), No Guarding due to palpation present (GI) and No Rigid due to palpation OTHER: in a binder Extremity: COMMON NORMALS: no pedal edema Neuro: COMMON NORMALS: patient oriented x3 Psych: COMMON NORMALS: mental status grossly normal Urinary Catheter Management: [place]: Cath Placed During This Visit: yes Reason for Continuing Indwelling Catheter: Acute Urinary Retention or Obstruction Urinary Catheter Date of Insertion: 06/20/23 Urinary Catheter Time of Insertion: 13:00 Data 06/21/23 03:41 06/21/23 03:41 A&P Assessment and plan (1) Small bowel obstruction: CT/CT abdomen pelvis wo con [id number] IMPRESSION: 1. Multiple dilated small bowel loops to 4.1 cm with fluid levels consistent with an obstruction, potentially high-grade, negative for transition point seen. 2. Small bilateral fat containing inguinal hernias without bowel or inflammation. 3. Bibasilar ground-glass atelectasis versus minimal infiltrate. 4. Mild cardiomegaly. 5. Coronary artery atherosclerotic calcifications. 6. Cholecystectomy. 7. Left kidney cyst, negative for follow-up advis -s/p adhesive SBO POD #1 Plan ? Serial abdominal exams, ? Continue bowel rest, n.p.o., ? Gentle IV hydration, ? NG tube in place, ? Pain control Dilaudid, ? General surgery on consult ? Full code ? SCDs for DVT prophylaxis, lovenox on hold , plavix on hold (2) Hematemesis: Reported some blood and some coffee-ground contents mixed into vomitus, resolved Recent EGD with some gastritis, ulcer. Plan ? Continue Protonix 40 IV twice daily next ?Carafate -Currently aspirin on hold - Plavix with a history of CAD, on hold f SCD only for VTE prophylaxis (3) Hypovolemic shock: - Hypovolemic shock -Off pressors -Continue IV hydration -Monitor lactic acid (4) CAD (coronary artery disease): With recent GI bleeding, was taken off aspirin, continue Plavix, discussed risks with him and family. Hold beta-theresa due to hypotension. Qualifiers: Coronary Disease-Associated Artery/Lesion type: unspecified vessel or lesion type [place] vs. transplanted heart: [place] heart Associated angina: angina presence unspecified Qualified Code(s): I25.10 - Atherosclerotic heart disease of [place] coronary artery without angina pectoris (5) VIGNESH (acute kidney injury): VIGNESH, creatinine up to 1.4 suspected prerenal with hypovolemia, hypotension, also on lisinopril. (6) Hyponatremia: Hypovolemic hyponatremia with vomiting, no oral intake, receiving fluid resuscitation. Follow-up chemistry requested. Plan Systolic congestive heart failure: Not in exacerbation Diabetes: Bowel rest at current time, Accu-Cheks, insulin Lantus 5 unnits, sliding scale HTN: Monitor blood pressures, currently hypovolemic shock requiring pressor. Hold antihypertensives. Smoking addiction: Encourage cessation. Nicotine replacement as needed. Carotid artery stenosis JENAE normally on CPAP: Currently with bowel obstruction, abdominal distention, NGT, hold off for now BPH: Flomax COPD: Currently not in exacerbation, breathing treatments. Budesonide. Other medical problems. Requesting medications to be confirmed, please review and reconcile once available. plan for today monitor postoperatively, serial abdominal exams, monitor electrolytes, monitor after surgery Attestations Medical Necessity Statement*: Patient requires hospitalization for bowel obstruction status post surgery currently on show abdominal exams conservative intervention n.p.o., Diagnoses Small bowel obstruction K56.609 Hematemesis K92.0 Hypovolemic shock R57.1 Coronary artery disease involving [place] heart, angina presence unspecified, unspecified vessel or lesion type I25.10 Coronary Disease-Associated Artery/Lesion type: unspecified vessel or lesion type [place] vs. transplanted heart: [place] heart Associated angina: angina presence unspecified VIGNESH (acute kidney injury) N17.9 Hyponatremia E87.1
[2023-06-21] MEDS: topiramate 25 mg Tablet 50 MG PO ×2 (11:44→18:16)
[2023-06-21] MEDS: acetaminophen 1,000 MG/100 ML PIGGYBACK 400 MG IV ×2 (11:44→18:16)
[2023-06-21 11:55] LABS: Glucose Point of Care 171 mg/dL (70-110)
--- NOTE | 2023-06-21 12:17 | PC.SOCIAL ---
IMM Updated Updated pt on IMM. No questions voiced. Provided pt a copy. Initialed, dated, & timed copy in chart.
--- NOTE | 2023-06-21 12:20 | PM.PN ---
Subjective Subjective: 72-year-old male who is postoperative day 1 status post exploratory laparotomy and lysis of additions for small bowel obstruction. Patient has been doing well overnight, vital signs have been stable. Abdominal pain is controlled, he was able to ambulate in this morning and endorses passing some gas. Vitals/I&O/Wt Last Vital Signs Temp 98.8 F 06/21/23 12:00 Pulse 94 06/21/23 12:00 Resp 30 H 06/21/23 12:00 BP 132/71 06/21/23 12:00 Pulse Ox 90 06/21/23 12:00 O2 Del Method Nasal Cannula 06/21/23 09:35 O2 Flow Rate 5 06/21/23 09:35 06/20/23 06/21/23 06/21/23 22:59 06:59 14:59 Intake Total 600 / 1445 100 / 1545 Output Total 1700 / 1700 750 / 2450 Balance -1100 / -255 -650 / -905 Weight last 48 hrs Weight 242 lb 3.2 oz Weight 242 lb 12.8 oz Weight 242 lb 5 oz Physical Exam HENMT: OTHER: NG tube in place with minimal bilious output GI: OTHER: Abdomen is soft, appropriately tender to palpation, surgical incisions covered with dressing and patient has an abdominal binder on. Urinary Catheter Management: [place]: Cath Placed During This Visit: yes Reason for Continuing Indwelling Catheter: Acute Urinary Retention or Obstruction Urinary Catheter Date of Insertion: 06/20/23 Urinary Catheter Time of Insertion: 13:00 Data 06/21/23 03:41 06/21/23 03:41 A&P Assessment and plan (1) Small bowel obstruction: Plan Is a 72-year-old male who is postoperative day 1 status post ex lap and lysis of additions for small bowel obstruction. Patient is doing better, vital signs have been stable, white count is 10 today there was a slight increase in creatinine from 1.4-1.7 which is in line to which is expected after surgical trauma. Patient is in good spirits endorsing passing some gas, NG output has been low. Will plan to continue NG tube decompression for the next 24 to 48 hours until return of bowel function is established. I have encouraged the patient to ambulate at least once or twice a day. I have also explained to the patient that I would like him to use incentive spirometer to prevent any pulmonary complications. I have added IV Tylenol to minimize narcotic use of this patient as he has been getting Dilaudid [id number]. Patient shows understanding and he is on a attempt to decrease the amount of Dilaudid intake to prevent ileus. Patient should work with physical therapy for ambulation, the plan will be for discharge in the next 72 hours if he passes gas and tolerates diet. -Continue n.p.o. and NG to low intermittent wall suction -IV Tylenol every 8 hours for the next 48 hours. -Hold anticoagulation, patient can be started on DVT prophylaxis tomorrow if hemoglobin is stable -Continue ambulation -Incentive spirometer -All other management per medical team Attestations Medical Necessity Statement*: Patient will require 48 to 72 hours of hospital stay to evaluate for progression of SBO and advancing of diet. Coding Level of Care Code Acute Code for [facility] Fwd Diagnoses Small bowel obstruction K56.609
[2023-06-21] MEDS: HYDROmorphone 1 mg/mL INJ 1 mL 0.5 MG IVP ×3 (14:06→22:59)
[2023-06-21 17:06] LABS: Glucose Point of Care 159 mg/dL (70-110)
[2023-06-21 20:47] LABS: Glucose Point of Care 137 mg/dL (70-110)
--- NOTE | 2023-06-21 21:06 | PC.NURSE ---
giancarlo held per order from Dr Albarran
[2023-06-21] MEDS: ALPRAZolam 0.5 mg Tablet 0.25 MG PO (22:58)
[2023-06-22] VITALS (14 sets, daily range): BP systolic 115–172; BP diastolic 46–69; PULSE 61–105; RESP 17–33; TEMP 36.6–37.1; O2SAT 90–96
[2023-06-22 00:49] LABS: Glucose Point of Care 139 mg/dL (70-110)
[2023-06-22] MEDS: pantoprazole 40 mg SDV IVP ×2 (01:01→12:08)
[2023-06-22] MEDS: acetaminophen 1,000 MG/100 ML PIGGYBACK 400 MG IV ×3 (02:25→18:16)
[2023-06-22] MEDS: HYDROmorphone 1 mg/mL INJ 1 mL 0.5 MG IVP ×6 (03:59→21:38)
[2023-06-22] MEDS: lactated ringers 1,000 ML 100 ML IV (04:00)
[2023-06-22] MEDS: ceFAZolin 2,000 MG in sodium chloride 0.9% (plus) 50 ML 100 MG IV ×3 (04:01→21:29)
[2023-06-22 06:11] LABS: Basophils % 0.3 %; Eosinophils # 0.2 10^3/uL (0.0-0.8); Eosinophils % 2.3 %; Hematocrit 33.2 % (37-53); Lymphocytes # 1.1 10^3/uL (0.8-4.8); Lymphocytes % 11.7 %; Mean Corpuscular Hemoglobin 28.9 pg (27-33); Mean Platelet Volume 10.8 fL (7.4-10.4); Monocytes % 10.7 %; Neutrophils # 6.71 10^3/uL (1.8-7.7); Neutrophils % 74.3 %; Nucleated Red Blood Cells % 0 %; Platelet Count 209 10^3/cmm (157-399); Red Blood Count 3.57 10^6/uL (3.85-5.65); Red Cell Distribution Width 13.3 % (12.1-15.1); White Blood Count 9.04 10^3/uL (3.29-11.43)
[2023-06-22 06:19] LABS: INR 1.19 (0.8-1.2)
[2023-06-22 06:26] LABS: Lactate (Lactic Acid level) 0.9 mmol/L (0.5-2.2)
[2023-06-22 06:33] LABS: Glucose Point of Care 115 mg/dL (70-110)
[2023-06-22 06:35] LABS: C Reactive Protein 67.2 mg/L (0.0-4.9); Phosphorus 1.9 mg/dL (2.5-4.5)
[2023-06-22 06:36] LABS: Alanine Aminotransferase 6 U/L (0-41); Albumin Level 3.1 g/dL (3.5-5.2); Alkaline Phosphatase 61 U/L (40-130); Anion Gap 13.7 (5-19); Aspartate Amino Transferase 17 U/L (0-40); Blood Urea Nitrogen 27 mg/dL (8-23); Calcium 8.2 mg/dL (8.5-10.5); Carbon Dioxide 29 mmol/L (22-29); Chloride 105 mmol/L (98-107); Creatinine Clr Calc Pharmacy 61.8036; Glomerular Filtration Rate 50.1 mL/min (90-130); Glucose 119 mg/dL (65-115); Osmolality Calculated 304 mOsm/kg (285-295); Potassium 3.7 mmol/L (3.5-5.1); Sodium 144 mmol/L (136-145); Total Bilirubin 0.3 mg/dL (0.15-1.2); Total Protein 6.1 g/dL (6.6-8.7)
[2023-06-22 07:06] LABS: NT Pro B Type Natriuretic Pept 1764 pg/mL (0-125)
[2023-06-22 07:36] LABS: Procalcitonin 0.82 ng/mL (0-0.5)
[2023-06-22] MEDS: topiramate 25 mg Tablet 50 MG PO ×2 (08:47→18:15)
--- NOTE | 2023-06-22 09:03 | P.PN_ITS ---
Subjective 2 Subjective: Is a 72-year-old male who is postoperative day 2 status post exploratory laparotomy and lysis of additions for small bowel obstruction. Patient is doing well, still complaining of abdominal pain but endorses passing good amount of gas. The NG output has been about 400 cc since the time of surgery appears to be bilious with a blood tinge. She denies fever chills, no nausea no vomit. Vitals/I&O/Wt Last Vital Signs Temp 97.8 F 06/22/23 07:20 Pulse 81 06/22/23 08:53 Resp 18 06/22/23 08:53 BP 166/69 06/22/23 07:20 Pulse Ox 96 06/22/23 08:53 O2 Del Method Oxymask 06/22/23 08:53 O2 Flow Rate 4 06/22/23 08:53 06/21/23 06/22/23 06/22/23 22:59 06:59 14:59 Intake Total 200 / 1300 1106.667 / 2406.667 Output Total 950 / 950 400 / 1350 Balance -750 / 350 706.667 / 1056.667 Weight last 48 hrs Weight 241 lb 8 oz Weight 242 lb 3.2 oz Weight 242 lb 12.8 oz Physical Exam 2 HENMT: OTHER: NG tube in place, small amount of blood residue in the tubing noted, suctioning decreased to 75 mmHg. GI: OTHER: Abdomen is soft but distended, appropriately tender to palpation, no peritoneal signs, surgical incisions remain covered we will remove the dressing tomorrow. Urinary Catheter Management: [place]: Cath Placed During This Visit: yes Reason for Continuing Indwelling Catheter: Accurate Measurement of Urinary Output in Critically Ill Patients Urinary Catheter Date of Insertion: 06/20/23 Urinary Catheter Time of Insertion: 13:00 Data 06/22/23 05:08 06/22/23 05:08 A&P Assessment and plan (1) Small bowel obstruction: Plan Is a 72-year-old male who is postoperative day 2 status post ex lap and lysis of additions for small bowel obstruction. Progression appears to be good. Vital signs have been stable, laboratory workup shows improvement of the creatinine to 1.4, there is downtrend on the CRP and the procalcitonin. White count is normal. Patient's endorses passing gas but has not had a bowel movement yet. Ambulated yesterday but has not yet ambulated today. The plan is to maintain NG tube decompression until patient has return of bowel function. If there is no return of bowel function until Saturday we will consider starting PPN and I will do a repeat a Gastrografin trial with therapeutic purposes. -N.p.o. with NG to low intermittent wall suction ? IV Tylenol scheduled ? Ambulate as tolerated, physical therapy evaluation recommended ? [place] catheter can be removed once the patient is ambulating ? Will think about removing NG tube once patient has return of bowel function ? Okay to start DVT prophylaxis ? All other management per primary team Attestations 2 Medical Necessity Statement*: Patient will require at least 48 hours of hospital stay to ensure return of bowel function and advancement of diet. Coding Level of Care Code 61965 Diagnoses Small bowel obstruction K56.609
[2023-06-22] MEDS: potassium phosphate (mEq K) 40 MEQ in sodium chloride 0.9% (100 ml) 100 ML 27.2699999999999996 MEQ IV (11:01)
--- NOTE | 2023-06-22 11:04 | P.PN_ITS ---
Subjective 2 Subjective: Patient was seen this morning fevers, chills, cough, he really wants his NG tube to be removed Vitals/I&O/Wt Last Vital Signs Temp 97.8 F 06/22/23 07:20 Pulse 81 06/22/23 08:53 Resp 18 06/22/23 08:53 BP 166/69 06/22/23 07:20 Pulse Ox 96 06/22/23 08:53 O2 Del Method Oxymask 06/22/23 08:53 O2 Flow Rate 4 06/22/23 08:53 06/21/23 06/22/23 06/22/23 22:59 06:59 14:59 Intake Total 200 / 1300 1106.667 / 2406.667 Output Total 950 / 950 400 / 1350 Balance -750 / 350 706.667 / 1056.667 Weight last 48 hrs Weight 109.543 kg Weight 109.86 kg Weight 110.132 kg Physical Exam 2 Const: COMMON NORMALS: no acute distress and patient oriented x3 HENMT: COMMON NORMALS: normocephalic HEAD & SCALP: normocephalic Resp: COMMON NORMALS: normal respiratory effort, No retractions, No use of accessory muscles and clear to auscultation bilaterally AUSCULTATION: clear to auscultation bilaterally Cardio: COMMON NORMALS: regular rate, regular rhythm, S1 normal heart sound present and S2 normal heart sound present RATE: regular rate RHYTHM: r egular rhythm HEART SOUNDS: S1 normal heart sound present and S2 normal heart sound present GI: OTHER: Abdomen is soft, distended, scattered bowel sounds no guarding, rebound, rigidity Extremity: COMMON NORMALS: no pedal edema Neuro: COMMON NORMALS: patient oriented x3 Psych: COMMON NORMALS: mental status grossly normal Urinary Catheter Management: [place]: Cath Placed During This Visit: yes Reason for Continuing Indwelling Catheter: Accurate Measurement of Urinary Output in Critically Ill Patients Urinary Catheter Date of Insertion: 06/20/23 Urinary Catheter Time of Insertion: 13:00 Data 06/22/23 05:08 06/22/23 05:08 A&P Assessment and plan (1) Small bowel obstruction: CT/CT abdomen pelvis wo con [id number] IMPRESSION: 1. Multiple dilated small bowel loops to 4.1 cm with fluid levels consistent with an obstruction, potentially high-grade, negative for transition point seen. 2. Small bilateral fat containing inguinal hernias without bowel or inflammation. 3. Bibasilar ground-glass atelectasis versus minimal infiltrate. 4. Mild cardiomegaly. 5. Coronary artery atherosclerotic calcifications. 6. Cholecystectomy. 7. Left kidney cyst, negative for follow-up advis -s/p adhesive SBO POD # Plan ? Serial abdominal exams, ? Continue bowel rest, n.p.o., ? Gentle IV hydration, ? NG tube in place, ? Pain control Dilaudid, ? General surgery on consult ? Full code ? SCDs for DVT prophylaxis, lovenox resume , plavix on hold -Started on potassium and phosphorus replacement (2) Hematemesis: Reported some blood and some coffee-ground contents mixed into vomitus, resolved Recent EGD with some gastritis, ulcer. Plan ? Continue Protonix 40 IV twice daily next ?Carafate -Currently aspirin on hold - Plavix with a history of CAD, on hold f SCD only for VTE prophylaxis (3) Hypovolemic shock: - Hypovolemic shock -Off pressors -Continue IV hydration -Monitor lactic acid (4) CAD (coronary artery disease): With recent GI bleeding, was taken off aspirin, continue Plavix, discussed risks with him and family. Hold beta-theresa due to hypotension. Qualifiers: Coronary Disease-Associated Artery/Lesion type: unspecified vessel or lesion type [place] vs. transplanted heart: [place] heart Associated angina: a ngina presence unspecified Qualified Code(s): I25.10 - Atherosclerotic heart disease of [place] coronary artery without angina pectoris (5) VIGNESH (acute kidney injury): VIGNESH, creatinine up to 1.4 suspected prerenal with hypovolemia, hypotension, also on lisinopril. (6) Hyponatremia: Hypovolemic hyponatremia with vomiting, no oral intake, receiving fluid resuscitation. Follow-up chemistry requested. Plan Systolic congestive heart failure: Not in exacerbation Diabetes: Bowel rest at current time, Accu-Cheks, insulin Lantus 5 unnits, sliding scale HTN: Monitor blood pressures, currently hypovolemic shock requiring pressor. Hold antihypertensives. Smoking addiction: Encourage cessation. Nicotine replacement as needed. Carotid artery stenosis JENAE normally on CPAP: Currently with bowel obstruction, abdominal distention, NGT, hold off for now BPH: Flomax COPD: Currently not in exacerbation, breathing treatments. Budesonide. Other medical problems. Requesting medications to be confirmed, please review and reconcile once available. plan for today monitor postoperatively, serial abdominal exams, monitor electrolytes, monitor after surgery Attestations 2 Medical Necessity Statement*: Patient requires hospitalization, for postoperative after bowel obstruction, Diagnoses Small bowel obstruction K56.609 Hematemesis K92.0 Hypovolemic shock R57.1 Coronary artery disease involving [place] heart, angina presence unspecified, unspecified vessel or lesion type I25.10 Coronary Disease-Associated Artery/Lesion type: unspecified vessel or lesion type [place] vs. transplanted heart: [place] heart Associated angina: angina presence unspecified VIGNESH (acute kidney injury) N17.9 Hyponatremia E87.1
[2023-06-22 11:22] LABS: Glucose Point of Care 149 mg/dL (70-110)
--- NOTE | 2023-06-22 11:38 | PC.PT ---
Pt declined PT this am stating he has ambulated in hallways twice already this am with asst of nursing. This was verified with staff. Pt requires asst with equipment during ambulation and nursing assisted him. He requested to check back with him in am.
[2023-06-22] MEDS: enoxaparin 40 mg/0.4 mL Syringe SUBCUT (12:08)
[2023-06-22 12:37] LABS: ABG PCO2 47.5 mmHg (35-45); ABG PH Result 7.38 (7.35-7.45); Arterial Blood Gas Hematocrit 33.2 % (42-52); Base Excess ABG 2.5 mmol/L (-2.0-2.0); Blood Gas Allen Test Pos; Blood Gas Operator Identificat BROMA; Blood Gas Sample Site Radial, left; Blood Gas Sample Type Arterial; HCO3 ABG 28.2 mmol/L (22-26); Oxygen Device OXY MASK; PO2 ABG 86.2 mmHg (80.0-100.0)
[2023-06-22 16:39] LABS: Glucose Point of Care 128 mg/dL (70-110)
[2023-06-22] MEDS: trazodone 50 mg Tablet PO (21:29)
[2023-06-22 22:40] LABS: Glucose Point of Care 118 mg/dL (70-110)
[2023-06-23] VITALS (12 sets, daily range): BP systolic 134–166; BP diastolic 51–81; PULSE 59–96; RESP 14–31; TEMP 36.5–36.9; O2SAT 88–97
[2023-06-23] MEDS: HYDROmorphone 1 mg/mL INJ 1 mL 0.5 MG IVP ×3 (00:26→06:04)
[2023-06-23] MEDS: pantoprazole 40 mg SDV IVP ×2 (00:27→12:30)
--- NOTE | 2023-06-23 00:30 | PC.NURSE ---
pt began to complain of pain that wasnt being relieved with pain medication. nurse assessed pt and released abdominal binder to assess incision site. pt expressed immediate relief. and refused replacement. he wanted a break. nurses left pt with strict instructions to splint his abdomen if he coughed. he stated understanding. nurses returned to pt after a 30 minute break and replaced binder. pt then expressed the desire to go to the rr for a bowel movement. no success but agreed to walk the floor. he was successful at walking down the [address] past his room and then past the nurses station and back to his room. sat on the side of the bed for short break and then asked for the rr again. pt stated he passed some liquid. nurse assisted pt back to bed with walker and upon sitting down on the bed the ng tube was dislodged and came out. pt adamantly refused a new placement. nurse notified dr with no new orders. pt states he is more comfortable now.
[2023-06-23 00:42] LABS: Glucose Point of Care 108 mg/dL (70-110)
[2023-06-23] MEDS: acetaminophen 1,000 MG/100 ML PIGGYBACK 400 MG IV ×4 (03:54→21:50)
[2023-06-23] MEDS: ceFAZolin 2,000 MG in sodium chloride 0.9% (plus) 50 ML 100 MG IV ×3 (04:53→20:52)
[2023-06-23 05:22] LABS: Basophils % 0.4 %; Eosinophils # 0.3 10^3/uL (0.0-0.8); Eosinophils % 3.8 %; Hematocrit 31.6 % (37-53); Lymphocytes # 0.8 10^3/uL (0.8-4.8); Lymphocytes % 11.3 %; Mean Corpuscular Hemoglobin 28.8 pg (27-33); Mean Corpuscular Volume 92.9 fl (82-101); Mean Platelet Volume 10.9 fL (7.4-10.4); Monocytes # 0.8 10^3/uL (0.2-0.9); Monocytes % 10.3 %; Neutrophils # 5.47 10^3/uL (1.8-7.7); Neutrophils % 73.8 %; Nucleated Red Blood Cells % 0 %; Platelet Count 196 10^3/cmm (157-399); Red Cell Distribution Width 13.3 % (12.1-15.1); White Blood Count 7.41 10^3/uL (3.29-11.43)
[2023-06-23 05:26] LABS: INR 1.26 (0.8-1.2)
[2023-06-23 05:29] LABS: Lactate (Lactic Acid level) 1.2 mmol/L (0.5-2.2)
[2023-06-23 05:54] LABS: Alanine Aminotransferase < 5 U/L (0-41); Alkaline Phosphatase 57 U/L (40-130); Anion Gap 17.7 (5-19); Aspartate Amino Transferase 16 U/L (0-40); Blood Urea Nitrogen 25 mg/dL (8-23); Calcium 8.1 mg/dL (8.5-10.5); Carbon Dioxide 25 mmol/L (22-29); Chloride 108 mmol/L (98-107); Creatinine Clr Calc Pharmacy 72.1042; Globulin 2.9 g/dL (1.3-4.6); Glomerular Filtration Rate 59.9 mL/min (90-130); Glucose 122 mg/dL (65-115); Osmolality Calculated 310 mOsm/kg (285-295); Potassium 3.7 mmol/L (3.5-5.1); Sodium 147 mmol/L (136-145); Total Bilirubin 0.4 mg/dL (0.15-1.2); Total Protein 5.9 g/dL (6.6-8.7)
[2023-06-23 05:55] LABS: C Reactive Protein 63.9 mg/L (0.0-4.9); Magnesium 1.9 mg/dL (1.7-2.3)
[2023-06-23 05:57] LABS: NT Pro B Type Natriuretic Pept 2222 pg/mL (0-125); Procalcitonin 0.65 ng/mL (0-0.5)
[2023-06-23 07:47] LABS: Glucose Point of Care 131 mg/dL (70-110)
[2023-06-23] MEDS: topiramate 25 mg Tablet 50 MG PO ×2 (09:18→17:43)
[2023-06-23] MEDS: potassium phosphate (mEq K) 40 MEQ in sodium chloride 0.9% (100 ml) 100 ML 27.2699999999999996 MEQ IV (09:59)
--- NOTE | 2023-06-23 11:28 | P.PN_ITS ---
Subjective 2 Subjective: Patient was seen this morning, he sitting up in a chair, he tells me that the NG tube was actually removed overnight, currently on room air sitting up in a chair tells me that he is passed gas, no significant abdominal pain, no nausea, no vomiting Vitals/I&O/Wt Last Vital Signs Temp 97.9 F 06/23/23 09:37 Pulse 96 06/23/23 09:37 Resp 18 06/23/23 09:37 BP 135/78 06/23/23 09:37 Pulse Ox 92 06/23/23 09:37 O2 Del Method Room Air 06/23/23 08:00 O2 Flow Rate 4 06/22/23 08:53 06/22/23 06/23/23 06/23/23 21:59 06:59 14:59 Intake Total Output Total Balance Weight last 48 hrs Weight 111.856 kg Weight 109.543 kg Physical Exam 2 Const: COMMON NORMALS: no acute distress and patient oriented x3 Resp: COMMON NORMALS: normal respiratory effort, No retractions, No use of accessory muscles and clear to auscultation bilaterally AUSCULTATION: clear to auscultation bilaterally Cardio: COMMON NORMALS: regular rate, regular rhythm, S1 normal heart sound present and S2 normal heart sound present RATE: regular rate RHYTHM: r egular rhythm HEART SOUNDS: S1 normal heart sound present and S2 normal heart sound present GI: OTHER: Abdomen soft, distended, scattered bowel sounds, no guarding, no rebound, no rigidity, no tenderness Extremity: COMMON NORMALS: no pedal edema Neuro: COMMON NORMALS: patient oriented x3 Psych: COMMON NORMALS: mental status grossly normal Urinary Catheter Management: [place]: Cath Placed During This Visit: yes Reason for Continuing Indwelling Catheter: Accurate Measurement of Urinary Output in Critically Ill Patients Urinary Catheter Date of Insertion: 06/20/23 Urinary Catheter Time of Insertion: 13:00 Data 06/23/23 04:16 06/23/23 04:16 A&P Assessment and plan (1) Small bowel obstruction: CT/CT abdomen pelvis con [id number] IMPRESSION: 1. Multiple dilated small bowel loops to 4.1 cm with fluid levels consistent with an obstruction, potentially high-grade, negative for transition point seen. 2. Small bilateral fat containing inguinal hernias without bowel or inflammation. 3. Bibasilar ground-glass atelectasis versus minimal infiltrate. 4. Mild cardiomegaly. 5. Coronary artery atherosclerotic calcifications. 6. Cholecystectomy. 7. Left kidney cyst, negative for follow-up advis -s/p adhesive SBO POD # Plan ? Serial abdominal exams, ? Continue bowel rest, n.p.o., ? Gentle IV hydration, ? NG currently out ? Pain control Dilaudid, ? General surgery on consult ? Full code ? SCDs for DVT prophylaxis, lovenox resume , plavix on hold -Started on potassium and phosphorus replacement (2) Hematemesis: Reported some blood and some coffee-ground contents mixed into vomitus, resolved Recent EGD with some gastritis, ulcer. Plan ? Continue Protonix 40 IV twice daily next ?Carafate -Currently aspirin on hold - Plavix with a history of CAD, on hold f SCD only for VTE prophylaxis (3) Hypovolemic shock: - Hypovolemic shock -Off pressors -Continue IV hydration -Monitor lactic acid (4) CAD (coronary artery disease): With recent GI bleeding, was taken off aspirin, continue Plavix, discussed risks with him and family. Hold beta-theresa due to hypotension. Qualifiers: Coronary Disease-Associated Artery/Lesion type: unspecified vessel or lesion type [place] vs. transplanted heart: [place] heart Associated angina: a ngina presence unspecified Qualified Code(s): I25.10 - Atherosclerotic heart disease of [place] coronary artery without angina pectoris (5) VIGNESH (acute kidney injury): VIGNESH, creatinine up to 1.4 suspected prerenal with hypovolemia, hypotension, also on lisinopril. (6) Hyponatremia: Hypovolemic hyponatremia with vomiting, no oral intake, receiving fluid resuscitation. Follow-up chemistry requested. Plan Systolic congestive heart failure: Not in exacerbation Diabetes: Bowel rest at current time, Accu-Cheks, insulin Lantus 5 unnits, sliding scale HTN: Monitor blood pressures, currently hypovolemic shock requiring pressor. Hold antihypertensives. Smoking addiction: Encourage cessation. Nicotine replacement as needed. Carotid artery stenosis JENAE normally on CPAP: Currently with bowel obstruction, abdominal distention, NGT, hold off for now BPH: Flomax COPD: Currently not in exacerbation, breathing treatments. Budesonide. Other medical problems. Requesting medications to be confirmed, please review and reconcile once available. plan for today monitor postoperatively, serial abdominal exams, monitor electrolytes, monitor after surgery Attestations 2 Medical Necessity Statement*: Patient requires hospitalization postoperative for small bowel obstruction, continue to clinically monitor Diagnoses Small bowel obstruction K56.609 Hematemesis K92.0 Hypovolemic shock R57.1 Coronary artery disease involving [place] heart, angina presence unspecified, unspecified vessel or lesion type I25.10 Coronary Disease-Associated Artery/Lesion type: unspecified vessel or lesion type [place] vs. transplanted heart: [place] heart Associated angina: angina presence unspecified VIGNESH (acute kidney injury) N17.9 Hyponatremia E87.1
--- NOTE | 2023-06-23 11:29 | PM.PN ---
Subjective Subjective: Patient seen and examined. He is now passing flatus. NG tube was pulled out overnight. Pain controlled. He is pulling 1000 cc on his incentive spirometer Vitals/I&O/Wt Last Vital Signs Temp 97.9 F 06/23/23 09:37 Pulse 96 06/23/23 09:37 Resp 18 06/23/23 09:37 BP 135/78 06/23/23 09:37 Pulse Ox 92 06/23/23 09:37 O2 Del Method Room Air 06/23/23 08:00 O2 Flow Rate 4 06/22/23 08:53 06/22/23 06/23/23 06/23/23 21:59 06:59 14:59 Intake Total Output Total Balance Weight last 48 hrs Weight 246 lb 9.6 oz Weight 241 lb 8 oz Physical Exam Narrative: General: No acute distress, awake alert and oriented x 3 Abdomen: Soft, mildly distended, appropriately tender to palpation, no guarding rebound or mass Incision: Intact without erythema or exudate Urinary Catheter Management: [place]: Cath Placed During This Visit: yes Reason for Continuing Indwelling Catheter: Accurate Measurement of Urinary Output in Critically Ill Patients Urinary Catheter Date of Insertion: 06/20/23 Urinary Catheter Time of Insertion: 13:00 Data 06/23/23 04:16 06/23/23 04:16 A&P Assessment and plan (1) Small bowel obstruction: Plan Is a 72-year-old male who is postoperative day 2 status post ex lap and lysis of additions for small bowel obstruction. Progression appears to be good. Vital signs have been stable, laboratory workup shows normalization of the creatinine to 1.2, there is downtrend on the CRP and the procalcitonin. White count is normal. Clear liquid diet DC [place] Abdominal binder may be worn for comfort if desired Medical management per hospitalist Attestations Medical Necessity Statement*: Per primary Coding Level of Care Code Acute Code for [facility] Diagnoses Small bowel obstruction K56.609
[2023-06-23] MEDS: enoxaparin 40 mg/0.4 mL Syringe SUBCUT (12:30)
[2023-06-23 17:06] LABS: Glucose Point of Care 128 mg/dL (70-110)
--- NOTE | 2023-06-23 20:32 | PC.NURSE ---
Spoke with regarding patients insulin orders. said ok to switch insulin sliding scale to ACHS as patient has diet now.
[2023-06-23] MEDS: insulin glargine 100 units/1 mL 5 UNIT SUBCUT (20:52)
[2023-06-23 21:04] LABS: Glucose Point of Care 161 mg/dL (70-110)
[2023-06-24] VITALS (8 sets, daily range): BP systolic 118–146; BP diastolic 55–70; PULSE 58–60; RESP 21–22; TEMP 36.5–36.9; O2SAT 95–97
[2023-06-24] MEDS: pantoprazole 40 mg SDV IVP ×2 (00:01→13:42)
[2023-06-24] MEDS: HYDROmorphone 1 mg/mL INJ 1 mL 0.5 MG IVP (00:12)
[2023-06-24] MEDS: ceFAZolin 2,000 MG in sodium chloride 0.9% (plus) 50 ML 100 MG IV ×2 (04:06→13:41)
[2023-06-24 05:04] LABS: Basophils % 0.5 %; Eosinophils # 0.4 10^3/uL (0.0-0.8); Eosinophils % 6.8 %; Hematocrit 32.1 % (37-53); Lymphocytes # 0.9 10^3/uL (0.8-4.8); Lymphocytes % 14.4 %; Mean Corpuscular HGB Conc 30.2 g/dL (30-55); Mean Corpuscular Hemoglobin 27.8 pg (27-33); Mean Platelet Volume 10.9 fL (7.4-10.4); Monocytes # 0.6 10^3/uL (0.2-0.9); Monocytes % 9.7 %; Neutrophils # 4.27 10^3/uL (1.8-7.7); Neutrophils % 67.5 %; Nucleated Red Blood Cells % 0 %; Platelet Count 191 10^3/cmm (157-399); Red Blood Count 3.49 10^6/uL (3.85-5.65); Red Cell Distribution Width 13.2 % (12.1-15.1); White Blood Count 6.32 10^3/uL (3.29-11.43)
[2023-06-24 05:29] LABS: Alanine Aminotransferase < 5 U/L (0-41); Albumin Level 2.8 g/dL (3.5-5.2); Alkaline Phosphatase 68 U/L (40-130); Anion Gap 12.8 (5-19); Aspartate Amino Transferase 22 U/L (0-40); Blood Urea Nitrogen 18 mg/dL (8-23); Calcium 8.1 mg/dL (8.5-10.5); Carbon Dioxide 27 mmol/L (22-29); Chloride 107 mmol/L (98-107); Creatinine Clr Calc Pharmacy 79.0919; Glomerular Filtration Rate 66.2 mL/min (90-130); Glucose 129 mg/dL (65-115); Osmolality Calculated 300 mOsm/kg (285-295); Potassium 3.8 mmol/L (3.5-5.1); Sodium 143 mmol/L (136-145); Total Bilirubin 0.4 mg/dL (0.15-1.2); Total Protein 5.8 g/dL (6.6-8.7)
[2023-06-24 05:31] LABS: Phosphorus 2.1 mg/dL (2.5-4.5)
[2023-06-24 06:27] LABS: Glucose Point of Care 126 mg/dL (70-110)
[2023-06-24] MEDS: topiramate 25 mg Tablet 50 MG PO (08:45)
[2023-06-24] MEDS: phosphorus 250 mg Tablet PO (08:45)
--- NOTE | 2023-06-24 08:51 | P.PN_ITS ---
Subjective 2 Subjective: 72-year-old male who is postoperative da y 4 status post peritoneal laparotomy and lysis of additions for small bowel obstruction. Patient having a very good postoperative recovery, he has been tolerating clear liquid diet for less than 4 hours, has passed gas and had several bowel movements in the last 24 hours. No significant abdominal pain distention has resolved. Vitals/I&O/Wt Last Vital Signs Temp 97.7 F 06/24/23 04:00 Pulse 58 L 06/24/23 05:49 Resp 21 H 06/24/23 04:00 BP 145/58 06/24/23 04:00 Pulse Ox 97 06/24/23 04:00 O2 Del Method Room Air 06/24/23 04:00 O2 Flow Rate 4 06/22/23 08:53 06/23/23 06/24/23 06/24/23 22:59 06:59 14:59 Intake Total 1598.5106 / 2608.5106 50 / 2658.5106 Output Total 200 / 550 150 / 150 Balance 1598.5106 / 2258.5106 -150 / 2108.5106 -150 / -150 Weight last 48 hrs Weight 244 lb 3.2 oz Weight 246 lb 9.6 oz Physical Exam 2 GI: OTHER: Abdomen is soft, appropriately tender to palpation, surgical incision is healing well, no evidence of surgical site infection. Urinary Catheter Management: [place]: Cath Placed During This Visit: yes, but has since been removed by the nurse Reason for Continuing Indwelling Catheter: Accurate Measurement of Urinary Output in Critically Ill Patients Urinary Catheter Date of Insertion: 06/20/23 Urinary Catheter Time of Insertion: 13:00 Date Urinary Catheter Removed: 06/23/23 Time Urinary Catheter Discontinued: 11:30 Data 06/24/23 04:21 06/24/23 04:21 A&P Assessment and plan (1) Small bowel obstruction: Plan Excellent progression after exploratory laparotomy and lysis of additions for small bowel obstruction. Patient doing very well this morning, tolerating diet, has had several bowel movements and is passing gas. Laboratory work Is normal, creatinine has also normalized to 1.1. After discussion with the patient Decided to advance him to soft diet and he is tolerating he can be discharged home today. He will follow-up in my clinic in 2 weeks to remove the jason. Patient will be sent home on pain control and stool softeners, I have discussed with the patient the need to continue ambulating at home and to continue stool softeners to prevent further episodes of constipation. Patient shows understanding and will continue with the postoperative care. I have discussed the case with medical team. Attestations 2 Medical Necessity Statement*: Per primary Coding Level of Care Code Acute Code for [facility] Diagnoses Small bowel obstruction K56.609
--- NOTE | 2023-06-24 09:45 | PC.CHAP ---
Pastoral Care Encounter/Spiritual Assessment Type of Contact [] Declined pheresis specialist visit [] Patient/Family/Request visit [] Outpatient visit [] Follow-up visit [] Physician referral [] Code/Alert [x] Routine visit [] Staff referral [] Actively dying [] Patient sleeping [] Family support [] [] Out of room [] Palliative care [] [] Receiving care in room [] Pre-surgical visit [] Trauma [] Long length of stay [] ICU visit [] Other: Relational/Emotional Strength [] Patient feels connected with others/family/visitors/staff [] Distress [] Loneliness/isolation [] Abandonment Spirituality of Patient [x] Person of Shandra [] Attends Yarsani of their Shandra [x] Believes in Prayer [] Reads Bible or Amish materials [] There are Spiritual issues to be addressed Litigation Legal Assistant Interventions [x] Prayer [x] Active listening [] Non-anxious presence [] Spiritual/emotional support [] Crisis/trauma care [] Spiritual counseling [] Bereavement support [] Provided bereavement packet [] Provided Bible/devotional materials [] Provided toy/stuffed animal, coloring book to patient or family member [] Provided Communion [] Anointing/[place] [] Salvation [x] Completed spiritual assessment [] Other: Impact on Illness or Injury [] Angry [] Fearful [] Anxious [] Often cries [] Exhaustion [] Unable to work [] Unable to attend samaritan [] Unable to walk/stand [] Unable to read [] Unable to drive [] Unable to eat/drink [] Unable to sleep [] Unable to be with family [] Patient intubated [] Other: Summary Time spent with patient 5 min
--- NOTE | 2023-06-24 09:57 | PM.DCS ---
Discharge Providers Date of Admission: 06/17/23 00:03 Date of Discharge: June 24, 2023 Attending Provider at Admission: Sukhi Malagon Attending Provider at Discharge: Ryland Webster MD Primary Care Provider: Portia Lawrence MD Diagnoses at Discharge Discharge Diagnosis (1) Small bowel obstruction: Status: Acute Reason for Visit Reason for Visit: vomit blood [facility] sent npo 4 days Hospital Course Hospital Course Pleasant 72-year-old gentleman with history of CAD, CABG, stenting, recently admitted after hematemesis, nausea and abdominal discomfort, chest pain, was assessed by cardiology, pain was found to be rather atypical, without suggestion of ACS, aspirin was held, he was continued on Plavix. CT abdomen pelvis showed some dilated bowels. Underwent EGD which found some mild gastritis and healing ulcers. He was discharged on 06/11 with Protonix, sucralfate. Metoprolol was reduced to 12.5 mg daily due to bradycardia. He returns to the hospital due to abdominal pain, nausea, vomiting, with blood mixed into the vomitus, some coffee-ground mixed into the vomitus, no bowel movement in over 2 days, not passing flatus. Abdomen distended. CT scan in ER he is afebrile, leukocytosis 11.6, sodium 128, BUN 47, creatinine 4, baseline around 1.4, CT abdomen pelvis with multiple dilated small bowel loops to 4.1 cm with fluid levels consistent with obstruction, potentially high-grade, negative transition point. Small bilateral fat-containing inguinal hernias without bowel or inflammation. Bibasilar groundglass atelectasis versus minimal infiltrate. Mild cardiomegaly. Coronary atherosclerosis. Cholecystectomy. Left kidney cyst, negative for follow-up advised. NGT was is placed. Surgery consulted. Patient was admitted, Small bowel obstruction: CT/CT abdomen pelvis wo con [id number] IMPRESSION: 1. Multiple dilated small bowel loops to 4.1 cm with fluid levels consistent with an obstruction, potentially high-grade, negative for transition point seen. 2. Small bilateral fat containing inguinal hernias without bowel or inflammation. 3. Bibasilar ground-glass atelectasis versus minimal infiltrate. 4. Mild cardiomegaly. 5. Coronary artery atherosclerotic calcifications. 6. Cholecystectomy. 7. Left kidney cyst, negative for follow-up advis ? General surgery was consulted -Initially patient was managed conservatively, however continues to have abdominal bloating abdominal pain lack of bowel movement, underwent surgical intervention, s/p adhesive SBO, managed postoperatively with bowel rest IV fluids, electrolyte replacement, overall clinically improved, abdominal distention improved, NG tube removed, patient having bowel movements, will be discharged on a bowel regimen, hydrocodone to be used sparingly for pain (advised patient to not drive or operate machinery or drink while taking medication or use with any other medications), with a close follow-up with general surgery as outpatient Physical Exam Const: COMMON NORMALS: no acute distress and patient oriented x3 Resp: COMMON NORMALS: normal respiratory effort, No retractions, No use of accessory muscles and clear to auscultation bilaterally AUSCULTATION: clear to auscultation bilaterally Cardio: COMMON NORMALS: regular rate, regular rhythm, S1 normal heart sound present and S2 normal heart sound present RATE: regular rate RHYTHM: regular rhythm HEART SOUNDS: S1 normal heart sound present and S2 normal heart sound present GI: COMMON NORMALS: Normal to inspection, nondistended, normoactive bowel sounds present and non-tender Extremity: COMMON NORMALS: no pedal edema Neuro: COMMON NORMALS: patient oriented x3 Psych: COMMON NORMALS: mental status grossly normal Urinary Catheter Management: [place]: Cath Placed During This Visit: yes, but has since been removed by the nurse Reason for Continuing Indwelling Catheter: Accurate Measurement of Urinary Output in Critically Ill Patients Urinary Catheter Date of Insertion: 06/20/23 Urinary Catheter Time of Insertion: 13:00 Date Urinary Catheter Removed: 06/23/23 Time Urinary Catheter Discontinued: 11:30 Discharge Data Studies Completed and Pending Completed Studies During Hospitalization Category Date Time Status CT abdomen pelvis wo con [id number] Urgent Cat Scan 06/16/23 19:43 Completed CXRP [XR chest 1V portable [id number]] Routine Exams 06/17/23 09:32 Completed CXRP [XR chest 1V portable [id number]] Routine Exams 06/20/23 18:59 Completed CXRP [XR chest 1V portable [id number]] Stat Exams 06/16/23 23:22 Completed XR KUB portable [id number] Routine Exams 06/17/23 14:00 Completed XR abdomen 1V* [id number] Routine Exams 06/19/23 18:00 Completed XR abdomen 1V* [id number] Routine Exams 06/20/23 05:00 Completed XR abdomen 1V* [id number] Stat Exams 06/20/23 06:46 Completed XR abdomen 1V* [id number] Stat Exams 06/20/23 20:23 Completed XR abdomen 1V* [id number] Stat Exams 06/20/23 20:52 Completed XR acute abdomen series [id number] Routine Exams 06/17/23 07:00 Completed Pending at discharge Category Date Time Status ABO/Rh Type Routine Lab 06/17/23 04:05 Results Complete Blood Count w/Auto AM LABS Lab 06/25/23 04:00 Ordered Complete Crossmatch Routine Lab 06/17/23 04:05 Results Complete Crossmatch Routine Lab 06/19/23 20:15 Results Comprehensive Metabolic Panel AM LABS Lab 06/25/23 04:00 Ordered Magnesium AM LABS Lab 06/25/23 04:00 Ordered Magnesium AM LABS Lab 06/26/23 04:00 Ordered Phosphorus AM LABS Lab 06/25/23 04:00 Ordered Phosphorus AM LABS Lab 06/26/23 04:00 Ordered Platelets Leuko-Reduced Routine Lab 06/19/23 18:19 Results Platelets Leuko-Reduced Routine Lab 06/19/23 20:15 Results Retype for Patiets ABO/Rh Routine Lab 06/16/23 20:04 Results Type and Screen Routine Lab 06/19/23 20:15 Results Radiology Impressions Abdomen/Pelvis CT 06/16/23 19:43 IMPRESSION: 1. Multiple dilated small bowel loops to 4.1 cm with fluid levels consistent with an obstruction, potentially high-grade, negative for transition point seen. 2. Small bilateral fat containing inguinal hernias without bowel or inflammation. 3. Bibasilar ground-glass atelectasis versus minimal infiltrate. 4. Mild cardiomegaly. 5. Coronary artery atherosclerotic calcifications. 6. Cholecystectomy. 7. Left kidney cyst, negative for follow-up advised. ADDENDUM: 06/16/23 0487 THIS REPORT CONTAINS FINDINGS THAT MAY BE CRITICAL TO PATIENT CARE. The findings were verbally communicated via telephone conference with SHAUNA ALBA at 9:45 PM [employer] on 06/16/2023. The findings were acknowledged and understood. Additional concerning for a gastric mass was raised. We discussed a large amount of enteric contents are seen, suggestive of fluid, please correlate clinically. Negative for definite mass in the stomach. Chest/Abdomen X-ray 06/17/23 07:00 IMPRESSION: 1. NGT tip at mid esophagus, advise appropriate advancement. 2. Stable chest from prior day otherwise. IMPRESSION: 1. NGT tip at mid esophagus, advise appropriate advancement. 2. Diffuse small bowel dilation again seen up to about 5 cm. Small bowel obstruction or ileus favored. KUB X-Ray 06/17/23 14:00 IMPRESSION: Known small bowel obstruction. Chest X-Ray 06/20/23 18:59 IMPRESSION: 1. New right-sided PICC positioned with its tip near the upper cavoatrial junction. 2. Right IJ approach central venous catheter redemonstrated and similar in position. Abdomen X-Ray 06/20/23 20:52 IMPRESSION: 1. NG tube tracks into the stomach. 2. Right-sided PICC positioned with its tip near the upper SVC. 3. The right IJ approach central venous catheter is positioned near the upper cavoatrial junction. Laboratory Results WBC 6.32 10^3/uL (3.29-11.43) 06/24/23 04:21 RBC 3.49 10^6/uL (3.85-5.65) L 06/24/23 04:21 Hgb 9.70 g/dL (11.27-16.99) L 06/24/23 04:21 Hct 32.1 % (37-53) L 06/24/23 04:21 MCV 92.0 fl (82-101) 06/24/23 04:21 MCH 27.8 pg (27-33) 06/24/23 04:21 MCHC 30.2 g/dL (30-55) 06/24/23 04:21 RDW 13.2 % (12.1-15.1) 06/24/23 04:21 Plt Count 191 10^3/cmm (157-399) 06/24/23 04:21 MPV 10.9 fL (7.4-10.4) H 06/24/23 04:21 Neut % (Auto) 67.5 % 06/24/23 04:21 Lymph % (Auto) 14.4 % 06/24/23 04:21 [place] % (Auto) 9.7 % 06/24/23 04:21 Eos % (Auto) 6.8 % 06/24/23 04:21 Baso % (Auto) 0.5 % 06/24/23 04:21 Neut # (Auto) 4.27 10^3/uL (1.8-7.7) 06/24/23 04:21 Lymph # (Auto) 0.9 10^3/uL (0.8-4.8) 06/24/23 04:21 [place] # (Auto) 0.6 10^3/uL (0.2-0.9) 06/24/23 04:21 Eos # (Auto) 0.4 10^3/uL (0.0-0.8) 06/24/23 04:21 Baso # (Auto) 0.0 10^3/uL (0.0-0.1) 06/24/23 04:21 Nucleated RBC % (auto) 0 % 06/24/23 04:21 Nucleated RBCs # 0.0 /100WBC 06/24/23 04:21 PT 16.20 SECONDS (12.1-14.9) H 06/23/23 04:16 INR 1.26 (0.8-1.2) H 06/23/23 04:16 Specimen Type Arterial 06/22/23 12:25 Sample Site Radial, left 06/22/23 12:25 ABG pH 7.38 (7.35-7.45) 06/22/23 12:25 ABG pCO2 47.5 mmHg (35-45) H 06/22/23 12:25 ABG pO2 86.2 mmHg (80.0-100.0) 06/22/23 12:25 ABG HCO3 28.2 mmol/L (22-26) H 06/22/23 12:25 ABG Base Excess 2.5 mmol/L (-2.0-2.0) H 06/22/23 12:25 Woo Test Pos 06/22/23 12:25 Hematocrit 33.2 % (42-52) L 06/22/23 12:25 O2 Delivery Device Oxy mask 06/22/23 12:25 O2 Liters/Min 4.0 % 06/22/23 12:25 Medical Records Technician ID Broma 06/22/23 12:25 Sodium 143 mmol/L (136-145) 06/24/23 04:21 Potassium 3.8 mmol/L (3.5-5.1) 06/24/23 04:21 Chloride 107 mmol/L (98-107) 06/24/23 04:21 Carbon Dioxide 27 mmol/L (22-29) 06/24/23 04:21 Anion Gap 12.8 (5-19) 06/24/23 04:21 BUN 18 mg/dL (8-23) 06/24/23 04:21 Creatinine 1.1 mg/dL (0.7-1.2) 06/24/23 04:21 GFR Calculation 66.2 mL/min (90-130) L 06/24/23 04:21 Glucose 129 mg/dL (65-115) H 06/24/23 04:21 POC Glucose 126 mg/dL (70-110) H 06/24/23 06:25 Calculated Osmolality 300 mOsm/kg (285-295) H 06/24/23 04:21 Lactic Acid 0.5 mmol/L (0.5-2.2) 06/17/23 09:03 Lactate 1.2 mmol/L (0.5-2.2) 06/23/23 04:16 Calcium 8.1 mg/dL (8.5-10.5) L 06/24/23 04:21 Phosphorus 2.1 mg/dL (2.5-4.5) L 06/24/23 04:21 Magnesium 2.0 mg/dL (1.7-2.3) 06/24/23 04:21 Total Bilirubin 0.4 mg/dL (0.15-1.2) 06/24/23 04:21 AST 22 U/L (0-40) 06/24/23 04:21 ALT < 5 U/L (0-41) 06/24/23 04:21 Alkaline Phosphatase 68 U/L (40-130) 06/24/23 04:21 Creatine Kinase 33 U/L (39-308) L 06/19/23 04:32 Troponin T Baseline 37 ng/L (0-15) H 06/17/23 09:03 Troponin T 120 Minute 34.68 ng/L (0-15) H 06/17/23 10:44 Delta Troponin T -2.32 ABS# (0-10) L 06/17/23 10:44 Troponin T Hi Sens 6Hr 29.78 ng/L (0-15) H 06/17/23 14:51 Troponin T Hi Sens 6Hr Delta -7.22 ng/L (0-12) L 06/17/23 14:51 C-Reactive Protein 63.9 mg/L (0.0-4.9) H 06/23/23 04:16 NT-Pro-B Natriuret Pep 2222 pg/mL (0-125) H 06/23/23 04:16 Total Protein 5.8 g/dL (6.6-8.7) L 06/24/23 04:21 Albumin 2.8 g/dL (3.5-5.2) L 06/24/23 04:21 Globulin 3.0 g/dL (1.3-4.6) 06/24/23 04:21 Procalcitonin 0.65 ng/mL (0-0.5) H 06/23/23 04:16 Blood Type O Positive 06/19/23 20:15 Rho(D) Type Rh positive 06/19/23 20:15 Antibody Screen Negative 06/19/23 20:15 Prewarmed Antibody Srcn Negative 06/19/23 20:15 Antibody Identification Cold Auto Aintobody 06/16/23 19:36 Cold Antibody Screen Positive 06/16/23 19:36 Crossmatch See Detail 06/19/23 20:15 Reaction Clerical Check No discrepancy 06/20/23 14:09 Pre-Trans Blood Type Op 06/20/23 14:09 Pre-Trans Antibody Scrn Cancelled 06/16/23 19:36 Pre-Trans Urine RBC Not Reportable 06/20/23 14:09 Post-Trans Blood Type O Positive 06/20/23 14:09 Post-Tx Visible Hemolys No hemolysis 06/20/23 14:09 Post-Trans CHRISTI Positive 06/20/23 14:09 Vitals Last Vital Signs Temp 97.7 F 06/24/23 04:00 Pulse 58 L 06/24/23 05:49 Resp 21 H 06/24/23 04:00 BP 146/55 06/24/23 09:49 Pulse Ox 97 06/24/23 04:00 O2 Del Method Room Air 06/24/23 04:00 O2 Flow Rate 4 06/22/23 08:53 Discharge Plan Discharge Patient Disposition: Home Condition: Good Prescriptions: New hydrocodone-acetaminophen 5-325 mg tablet 1 tab PO Q8H PRN (Reason: pain) 5 Days Qty: 15 0RF aspirin 81 mg capsule 81 mg PO DAILY 30 Days Qty: 30 0RF Continued topiramate [Topamax] 50 mg tablet 50 mg PO BID Qty: 60 6RF nitroglycerin 0.4 mg tablet, sublingual 0.4 mg sublingual Q5M PRN (Reason: chest pain) Qty: 30 6RF Rx Instructions: do not exceed 3 doses per episode tamsulosin 0.4 mg capsule 0.4 mg PO QPM sennosides-docusate sodium [Senexon-S] 8.6-50 mg tablet 1 tab PO BID Rx Instructions: HOLD IF LOOSE STOOLS/DIARRHEA gabapentin 400 mg capsule 400 mg PO TID glucose 4 gram Tablet,Chewable 4 - 16 g PO Q15M PRN (Reason: Hypoglycemia) Rx Instructions: MAY REPEAT IF HYPOGLYCEMIA CONTINUES 15 MINUTES POST 1ST DOSE. cholecalciferol (vitamin D3) [Vitamin D3] 25 mcg (1,000 unit) Tablet 25 mcg PO TID melatonin 5 mg Tablet 5 mg PO BEDTIME omega 6-yfm-pvj-fish oil [Fish Oil] 1,000 mg (120 mg-180 mg) Capsule 1 cap PO BID potassium chloride 20 mEq Tablet Extended Release 10 meq PO QAM folic acid 400 mcg tablet 400 mcg PO DAILY rosuvastatin 40 mg tablet 40 mg PO QPM ipratropium-albuterol 20-100 mcg/actuation Mist 1 puff INHALATION QID furosemide 20 mg tablet 20 mg PO QAM ascorbic acid (vitamin C) [Vitamin C] 500 mg Tablet 500 mg PO BID metoprolol succinate [Toprol XL] 25 mg tablet extended release 24 hr 12.5 mg PO DAILY Qty: 30 0RF sucralfate 1 gram tablet 1 g PO DAILY Protonix 40 mg tablet,delayed release (DR/EC) 40 mg PO DAILY clopidogrel 75 mg tablet 75 mg PO DAILY Changed polyethylene glycol 3350 17 gram/dose Powder 17 g PO DAILY 14 Days Qty: 238 0RF insulin glargine 100 unit/mL (3 mL) Insulin Pen 5 unit SUBCUT QAM Qty: 15 0RF insulin regular human 100 unit/mL (3 mL) Insulin Pen See Rx Instructions .ROUTE .COMPLEX Qty: 15 0RF Rx Instructions: inject, subcut, tid after meals, based on sliding scale provided Held lisinopril 20 mg Tablet 10 mg PO QAM Hold Instructions: Resume on 07/01/23. hold until you see primary care Discharge Orders: Discharge Order (Routine); Ordered 06/24/23 Ordered By: Ryland Webster Referrals: [facility] [Other] Enrique Hannah MD [Physician] - 07/09/23 8:55 am Portia Lawrence MD [Primary Care Provider] - Discharge Diet: GI Soft Discharge Activity: Resume usual activity Patient Instructions: Heart Failure (DC), GI (Gastrointestinal) Soft Diet (DC), Exploratory Laparoscopy (DC), CHF Stoplight, Opioid Safety, Post Anesthesia Care Activity Restrictions/Additional Instructions: -if you have worsening abdominal pain, lack of bowel movement, nausea or vomiting, or bloody or black stools go to the emergency room -adhere to GI soft diet -see general surgery in one week -remain ambulatory, if you develop calf pain or swelling or sudden onset shortness of breath or bloody cough go o the emergency room -if you develop chest pain go to emergency room -Please use hydrocodone sparingly for pain, do not drive operate machinery or drink while taking medication Discharge Attestations Time Spent in Discharge Care*: greater than 30 min Quality Metrics Clinical Quality Measures [ No reported AMI, CVA or VTE this stay] Coding Level of Care Code 45284 Total time (in minutes) for Discharge: 45 Diagnoses Small bowel obstruction K56.609
--- NOTE | 2023-06-24 10:07 | PC.SOCIAL ---
IMM Update pg 2 of IMM updated and reviewed w/ patient. Copy provided and copy dated, initialed and placed in chart.
[2023-06-24] MEDS: clopidogrel 75 mg Tablet PO (10:14)
[2023-06-24] MEDS: FUROsemide 10 mg/mL SDV 4mL 40 MG IVP (10:14)
[2023-06-24] MEDS: enoxaparin 40 mg/0.4 mL Syringe SUBCUT (11:19)
[2023-06-24 11:32] LABS: Glucose Point of Care 225 mg/dL (70-110)
[2023-06-24] MEDS: insulin lispro 100 unit/1 mL SUBCUT (12:07)
--- NOTE | 2023-06-24 14:38 | PC.NURSE ---
right upper arm picc line removed.catheter intact.pressure held x 3 min and drsg applied.pt tolerated procedure well.
--- NOTE | 2023-06-24 15:15 | PC.NURSE ---
discharge instructions given and explained.pt and spouse verb understanding of instructions.discharged via w/c to exit at this time.spouse to drive pt home.
== END 2023-06-24 15:17 | disposition home health service (06) | DRG 335 ==
LOC: ER 19:29 → ICU 06-17 00:09 → CSU 06-17 19:53 → ICU 06-20 14:17 → CSU 06-20 19:26
PROVIDERS: Emergency Medicine; Surgery; Admitting Provider Internal Medicine; Emergency Provider Emergency Medicine; PCP Family Medicine; Visit Provider Family Medicine
PROC: 0DN84ZZ Release Small Intestine, Percutaneous Endoscopic Approach (ICD-10-PCS; CPT 49000; principal; 2023-06-20 13:30)
DX: K56.51 Intestinal adhesions [bands], with partial obstruction (principal); R57.1 Hypovolemic shock; I50.22 Chronic systolic (congestive) heart failure; N17.9 Acute kidney failure, unspecified; K92.0 Hematemesis; G40.209 Localization-related (focal) (partial) symptomatic epilepsy and epileptic syndromes with complex partial seizures, not intractable, without status epilepticus; E87.1 Hypo-osmolality and hyponatremia; I11.0 Hypertensive heart disease with heart failure; F17.210 Nicotine dependence, cigarettes, uncomplicated; I25.10 Atherosclerotic heart disease of native coronary artery without angina pectoris; N52.9 Male erectile dysfunction, unspecified; G47.33 Obstructive sleep apnea (adult) (pediatric); N47.1 Phimosis; N40.1 Benign prostatic hyperplasia with lower urinary tract symptoms; J44.9 Chronic obstructive pulmonary disease, unspecified; E11.9 Type 2 diabetes mellitus without complications; I95.89 Other hypotension; T80.89XA Other complications following infusion, transfusion and therapeutic injection, initial encounter; I34.0 Nonrheumatic mitral (valve) insufficiency; K25.9 Gastric ulcer, unspecified as acute or chronic, without hemorrhage or perforation; K29.70 Gastritis, unspecified, without bleeding; I25.2 Old myocardial infarction; Z95.1 Presence of aortocoronary bypass graft; Z79.4 Long term (current) use of insulin; Z95.5 Presence of coronary angioplasty implant and graft; Z79.02 Long term (current) use of antithrombotics/antiplatelets
CPT/HCPCS: 36415; 36416; 36556; 36573; 36592; 36600; 51702; 71045; 74018; 74022; 74176; 80053; 80503; 82550; 82803; 82962; 83605; 83735; 83880; 84100; 84145; 84484; 85014; 85018; 85025; 85610; 86140; 86850; 86870; 86900; 86920; 93005; 96365; 96372; 96375; 96376; 97110; 97116; 97162; 97167; 97530; 97535; 99285; C1751; C9113; J0131; J0330; J0690; J1170; J1650; J1815; J1940; J2060; J2270; J2405; J2704; J2795; J2919; J3010; J3490; J7030; J7120; P9016; P9045

== ENCOUNTER → 2023-07-02 11:25 | Outpatient (BNVA) | payer OTHER, SELFPAY | PROVIDERS: PCP Family Medicine; Visit Provider Nurse Practitioner Family | DX: I25.10 Atherosclerotic heart disease of native coronary artery without angina pectoris (principal); I50.20 Unspecified systolic (congestive) heart failure; I11.0 Hypertensive heart disease with heart failure; F17.210 Nicotine dependence, cigarettes, uncomplicated | CPT/HCPCS: 99214 ==

== ENCOUNTER → 2023-07-09 08:41 | Outpatient (BNVA) | payer OTHER, SELFPAY | PROVIDERS: PCP Family Medicine; Visit Provider Surgery | DX: Z98.890 Other specified postprocedural states (principal) | CPT/HCPCS: 99024 ==

== ENCOUNTER 2023-07-25 15:35 | Emergency (ER) | payer OTHER, SELFPAY ==
[2023-07-25 15:47] VITALS: PULSE 74; RESP 16; TEMP 36.6; O2SAT 97; BMI 30.7
--- NOTE | 2023-07-25 15:53 | XRR_ITS ---
PROCEDURE INFORMATION: Exam: XR Left Shoulder Exam date and time: 07/25/2023 4:12 PM Age: 72 years old Clinical indication: Pain; Shoulder; Left; Additional info: Pain no known injury TECHNIQUE: Imaging protocol: Radiologic exam of the left shoulder. Views: 2 or more views. COMPARISON: CR (CHEST, ) 06/20/2023 7:53 PM FINDINGS: Bones/joints: Mild degenerative arthrosis of the glenohumeral and AC joint with marginal spurring. Mild downsloping of the acromion. Borderline acromiohumeral distance. No fracture or dislocation. Soft tissues: Normal. XR/XR shoulder LT min 2V* [id number] IMPRESSION: No acute osseous abnormality. Mild degenerative AC and glenohumeral arthrosis. Downsloping of the acromion may predispose to rotator cuff impingement.
--- NOTE | 2023-07-25 15:53 | XRR_ITS ---
PROCEDURE INFORMATION: Exam: XR Left Elbow Exam date and time: 07/25/2023 4:15 PM Age: 72 years old Clinical indication: Pain; Elbow; Left; Additional info: Pain no known injury TECHNIQUE: Imaging protocol: Radiologic exam of the left elbow. Views: 3 or more views. COMPARISON: CR XR shoulder LT min 2V* [id number] 07/25/2023 4:12 PM FINDINGS: Bones/joints: Mild degenerative spurring of the medial and lateral epicondyles and coronoid process of the ulna and tip of the olecranon. No significant joint space narrowing. Smooth articular surfaces. No fracture or dislocation. No joint effusion. Soft tissues: Normal. XR/XR elbow LT min 3V* [id number] IMPRESSION: No acute osseous abnormality. Mild degenerative arthrosis, olecranon and epicondylar spurring.
--- NOTE | 2023-07-25 15:53 | XRR_ITS ---
PROCEDURE INFORMATION: Exam: XR Left Femur Exam date and time: 07/25/2023 4:19 PM Age: 72 years old Clinical indication: Pain; Thigh; Left; Additional info: Pain no known injury TECHNIQUE: Imaging protocol: Radiologic exam of the left femur. Views: 2 views. COMPARISON: CT abdomen pelvis con [id number] 06/16/2023 8:24 PM FINDINGS: Bones/joints: No acute fracture, lytic or blastic abnormality. Mild degenerative spurring and sclerosis of the acetabular margin. Smooth articular surfaces. Soft tissues: Mild enthesophyte formation at the superior patellar pole. Mild atherosclerotic calcification in the femoral and popliteal arteries.. XR/XR femur LT min 2V* [id number] IMPRESSION: No acute osseous abnormality. Degenerative findings detailed above.
--- NOTE | 2023-07-25 15:53 | XRR_ITS ---
PROCEDURE INFORMATION: Exam: XR Left Tibia and Fibula Exam date and time: 07/25/2023 4:22 PM Age: 72 years old Clinical indication: Pain; Lower leg; Left; Additional info: Pain no known injury TECHNIQUE: Imaging protocol: Radiologic exam of the left tibia and fibula. Views: 2 views. COMPARISON: CR XR knee LT 1-2V [id number] 03/19/2023 10:30 AM FINDINGS: Bones/joints: No acute fracture, lytic or blastic abnormality. No periosteal reaction or cortical thickening. Surgical clips noted in the medial proximal calf. Mild posterior calcaneal spur. Soft tissues: See Bones/joints finding. XR/XR tibia fibula LT 2V [id number] IMPRESSION: No acute plain radiographic abnormality.
--- NOTE | 2023-07-25 16:02 | ED_ITS ---
Documented by User: Foster Castillo DO 07/26/23 05:54 HPI - Extremity Problem 2 General: Chief complaint: Extremity Problem,Nontraumatic Stated complaint: left leg pain, left arm pain Time Seen by Provider: 07/25/23 15:52 Source: patient Mode of arrival: ambulatory History of Present Illness: 72-year-old male who presents emergency room with complaint of multiple extremity pain left arm and left leg and tibia. No falls or trauma. No significant swelling noted. He is having a lot of aching for the last 2 days and this afternoon he started having some chest discomfort as well. No fever sweats or chills no productive cough. He has previously had a known history of coronary disease he has stents and subsequently had bypass. MD Complaint: extremity pain Onset (ago): hour(s) Location: left, upper extremity and lower extremity Quality: aching Relieving factors: nothing Exacerbating factors: nothing Associated symptoms: Reports myalgias; Deny arthralgias, chest pain, fever(s), rash or short of breath Review of Systems 2 Const: Denies: fever(s) or chills Card: Denies: chest pain Resp: Denies: dyspnea GI: Denies: abdominal pain : Denies: dysuria, urinary frequency or urinary urgency Musc: Denies: neck pain or back pain Skin/Breast: Denies: rash PFSH ED 2 PFSH: Medical History Tobacco abuse NSTEMI (non-ST elevated myocardial infarction) Systolic CHF with reduced left ventricular function, NYHA class 2 Bilateral carotid artery stenosis Erectile dysfunction Urinary retention Cutaneous wart Current smoker JENAE on CPAP Acute cystitis without hematuria Phimosis BPH NOS w ur obs/LUTS COPD (chronic obstructive pulmonary disease) Hypertension Diabetes Complex partial epilepsy with generalization Myocardial infarct Chronic headache CAD (coronary artery disease) Balanitis Surgical History History of cardiac catheterization H/O heart artery stent S/P carotid endarterectomy H/O circumcision History of laparotomy History of appendectomy History of coronary artery bypass graft Family History Mother , at age 103 No problems noted. Father , at age 89 Congestive heart failure (CHF) Other CAD (coronary artery disease) Hypertension Mesothelioma Social History Smoking and tobacco/nicotine status: current every day tobacco/nicotine user cigarettes Packs smoked per day: 1.5 Years cigarettes smoked: 52 [ Other cigarette details: was 2ppd] Alcohol intake: never Substance/Drug Use: never Marital status: service: Yes Current occupational status: retired and disabled Do you think of yourself as: Straight/Heterosexual Physical Exam 2 Const: GENERAL APPEARANCE: cooperative and comfortable O RIENTATION/CONSCIOUSNESS: Yes awake, Yes oriented to person, Yes oriented to place and Yes oriented to time HENMT: COMMON NORMALS: normocephalic, atraumatic and hearing grossly normal bilaterally HEAD & SCALP: normocephalic and atraumatic Resp: COMMON NORMALS: normal respiratory effort, No retractions, No use of accessory muscles and clear to auscultation bilaterally AUSCULTATION: clear to auscultation bilaterally Cardio: COMMON NORMALS: regular rate, regular rhythm and No murmurs present (Cardio) RATE: regular rate RHYTHM: regular rhythm GI: COMMON NORMALS: Soft to palpation and No hepatosplenomegaly present A USCULTATION: Yes normoactive bowel sounds PALPATION: Yes Soft to palpation, No Tenderness to palpation present (GI), No Guarding due to palpation present (GI) and Yes No hepatosplenomegaly present : COMMON NORMALS: Yes no CVA tenderness BLADDER/KIDNEY EXAM: Yes no CVA tenderness Back/Pelvis: COMMON NORMALS: no CVA tenderness Extremity: COMMON NORMALS: normal to inspection, capillary refill normal and no calf tenderness OTHER: Examination the upper extremities no significant edema pulses equal bilaterally in all extremities no signs of DVT clinically at the bedside Neuro: SENSORIUM/ORIENTATION: Yes oriented to person, Yes oriented to place and Yes oriented to time Skin: COMMON NORMALS: no rashes or lesions noted GENERAL SKIN EXAM: no rashes or lesions noted Course 2 Vital Signs: Vital signs: Vital Signs Temperature 97.8 F 07/25/23 15:47 Pulse Rate 70 07/25/23 19:51 Respiratory Rate 16 07/25/23 15:47 Pulse Oximetry 98 07/25/23 19:51 Oxygen Delivery Me thod Room Air 07/25/23 15:47 MDM - Extremity (Nontraumatic) Medical Decision Making Care signed out to Dr. Bergeron at change of shift. See final notes for diagnosis and disposition. Care was taken over shift change, x-rays and lab work was reviewed with the patient's. Who understand is probably musculoskeletal type pain. Patient be discharged to follow-up with his PCP on an as-needed basis. Lab Data 07/25/23 17:57 07/25/23 17:57 Radiology Impressions Elbow X-Ray 07/25/23 15:53 IMPRESSION: No acute osseous abnormality. Mild degenerative arthrosis, olecranon and epicondylar spurring. Femur X-Ray 07/25/23 15:53 IMPRESSION: No acute osseous abnormality. Degenerative findings detailed above. Shoulder X-Ray 07/25/23 15:53 IMPRESSION: No acute osseous abnormality. Mild degenerative AC and glenohumeral arthrosis. Downsloping of the acromion may predispose to rotator cuff impingement. Tibia/Fibula X-Ray 07/25/23 15:53 IMPRESSION: No acute plain radiographic abnormality. Chest X-Ray 07/25/23 16:34 IMPRESSION: 1. Borderline cardiomegaly, improved from 06/20/2023. Previous vascular congestion and small pleural effusions have resolved. 2. No new airspace opacity. Mild residual strand-like basilar atelectasis. Laboratory Results WBC 4.97 10^3/uL (3.29-11.43) 07/25/23 17:57 RBC 3.95 10^6/uL (3.85-5.65) 07/25/23 17:57 Hgb 11.20 g/dL (11.27-16.99) L 07/25/23 17:57 Hct 36.4 % (37-53) L 07/25/23 17:57 MCV 92.2 fl (82-101) 07/25/23 17:57 MCH 28.4 pg (27-33) 07/25/23 17:57 MCHC 30.8 g/dL (30-55) 07/25/23 17:57 RDW 14.1 % (12.1-15.1) 07/25/23 17:57 Plt Count 162 10^3/cmm (157-399) 07/25/23 17:57 MPV 10.3 fL (7.4-10.4) 07/25/23 17:57 Neut % (Auto) 60.2 % 07/25/23 17:57 Lymph % (Auto) 22.5 % 07/25/23 17:57 Crane % (Auto) 11.1 % 07/25/23 17:57 Eos % (Auto) 5.0 % 07/25/23 17:57 Baso % (Auto) 0.8 % 07/25/23 17:57 Neut # (Auto) 2.99 10^3/uL (1.8-7.7) 07/25/23 17:57 Lymph # (Auto) 1.1 10^3/uL (0.8-4.8) 07/25/23 17:57 Crane # (Auto) 0.6 10^3/uL (0.2-0.9) 07/25/23 17:57 Eos # (Auto) 0.3 10^3/uL (0.0-0.8) 07/25/23 17:57 Baso # (Auto) 0.0 10^3/uL (0.0-0.1) 07/25/23 17:57 Nucleated RBC % (auto) 0 % 07/25/23 17:57 Nucleated RBCs # 0.0 /100WBC 07/25/23 17:57 Sodium 145 mmol/L (136-145) 07/25/23 17:57 Potassium 4.6 mmol/L (3.5-5.1) 07/25/23 17:57 Chloride 109 mmol/L (98-107) H 07/25/23 17:57 Carbon Dioxide 27 mmol/L (22-29) 07/25/23 17:57 Anion Gap 13.6 (5-19) 07/25/23 17:57 BUN 23 mg/dL (8-23) 07/25/23 17:57 Creatinine 1.2 mg/dL (0.7-1.2) 07/25/23 17:57 GFR Calculation 59.9 mL/min (90-130) L 07/25/23 17:57 Glucose 79 mg/dL (65-115) 07/25/23 17:57 Calculated Osmolality 303 mOsm/kg (285-295) H 07/25/23 17:57 Calcium 9.4 mg/dL (8.5-10.5) 07/25/23 17:57 Total Bilirubin 0.5 mg/dL (0.15-1.2) 07/25/23 17:57 AST 12 U/L (0-40) 07/25/23 17:57 ALT 8 U/L (0-41) 07/25/23 17:57 Alkaline Phosphatase 90 U/L (40-130) 07/25/23 17:57 Troponin T Baseline 27 ng/L (0-15) H 07/25/23 17:57 NT-Pro-B Natriuret Pep 670 pg/mL (0-125) H 07/25/23 17:57 Total Protein 6.9 g/dL (6.6-8.7) 07/25/23 17:57 Albumin 4.1 g/dL (3.5-5.2) 07/25/23 17:57 Globulin 2.8 g/dL (1.3-4.6) 07/25/23 17:57 Discharge Plan Discharge Patient Disposition: Home Clinical Impression: Musculoskeletal pain of left lower extremity Musculoskeletal arm pain Qualifiers: Laterality: left Qualified Code(s): M79.602 - Pain in left arm Condition: Stable Prescriptions: No Action topiramate [Topamax] 50 mg tablet 50 mg PO BID Qty: 60 6RF nitroglycerin 0.4 mg tablet, sublingual 0.4 mg sublingual Q5M PRN (Reason: chest pain) Qty: 30 6RF Rx Instructions: do not exceed 3 doses per episode tamsulosin 0.4 mg capsule 0.4 mg PO QPM lisinopril 20 mg Tablet 10 mg PO QAM Hold Instructions: Resume on 07/01/23. hold until you see primary care sennosides-docusate sodium [Senexon-S] 8.6-50 mg tablet 1 tab PO BID Rx Instructions: HOLD IF LOOSE STOOLS/DIARRHEA gabapentin 400 mg capsule 400 mg PO TID glucose 4 gram Tablet,Chewable 4 - 16 g PO Q15M PRN (Reason: Hypoglycemia) Rx Instructions: MAY REPEAT IF HYPOGLYCEMIA CONTINUES 15 MINUTES POST 1ST DOSE. cholecalciferol (vitamin D3) [Vitamin D3] 25 mcg (1,000 unit) Tablet 25 mcg PO TID melatonin 5 mg Tablet 5 mg PO BEDTIME omega 7-ure-dvi-fish oil [Fish Oil] 1,000 mg (120 mg-180 mg) Capsule 1 cap PO BID potassium chloride 20 mEq Tablet Extended Release 10 meq PO QAM folic acid 400 mcg tablet 400 mcg PO DAILY rosuvastatin 40 mg tablet 40 mg PO QPM ipratropium-albuterol 20-100 mcg/actuation Mist 1 puff INHALATION QID furosemide 20 mg tablet 20 mg PO QAM ascorbic acid (vitamin C) [Vitamin C] 500 mg Tablet 500 mg PO BID metoprolol succinate [Toprol XL] 25 mg tablet extended release 24 hr 12.5 mg PO DAILY Qty: 30 0RF Hold Instructions: hypotension sucralfate 1 gram tablet 1 g PO DAILY Protonix 40 mg tablet,delayed release (DR/EC) 40 mg PO DAILY clopidogrel 75 mg tablet 75 mg PO DAILY polyethylene glycol 3350 17 gram/dose Powder 17 g PO DAILY 14 Days Qty: 238 0RF insulin regular human 100 unit/mL (3 mL) Insulin Pen See Rx Instructions .ROUTE .COMPLEX Qty: 15 0RF Rx Instructions: inject, subcut, tid after meals, based on sliding scale provided insulin glargine 100 unit/mL (3 mL) Insulin Pen 5 unit SUBCUT QAM Qty: 15 0RF Discharge Orders: Discharge ED (Routine); Ordered 07/25/23 Ordered By: Luis Antonio Bergeron Referrals: Portia Lawrence MD [Primary Care Provider] - 1 week Patient Instructions: Musculoskeletal Pain (ED) Activity Restrictions/Additional Instructions: Your evaluation of the pain in your arm and leg in ER included blood work and x- rays, of which did not show any acute cause for pain. Is felt that this is musculoskeletal pain. Please continue [id number] ibuprofen and/or Tylenol as needed for pain. Please follow-up with your family practice physician for further evaluation and treatment. Coding Level of Care Code ED Fighting Vehicle Systems Maintainer for Chg Fwd Documented by User: Luis Antonio Bergeron DO 07/26/23 03:10 HPI - Extremity Problem 2 General: Chief complaint: Extremity Problem,Nontraumatic Stated complaint: left leg pain, left arm pain Time Seen by Provider: 07/25/23 15:52 PFSH ED 2 PFSH: Medical History Tobacco abuse NSTEMI (non-ST elevated myocardial infarction) Systolic CHF with reduced left ventricular function, NYHA class 2 Bilateral carotid artery stenosis Erectile dysfunction Urinary retention Cutaneous wart Current smoker JENAE on CPAP Acute cystitis without hematuria Phimosis BPH NOS w ur obs/LUTS COPD (chronic obstructive pulmonary disease) Hypertension Diabetes Complex partial epilepsy with generalization Myocardial infarct Chronic headache CAD (coronary artery disease) Balanitis Surgical History History of cardiac catheterization H/O heart artery stent S/P carotid endarterectomy H/O circumcision History of laparotomy History of appendectomy History of coronary artery bypass graft Family History Mother , at age 103 No problems noted. Father , at age 89 Congestive heart failure (CHF) Other CAD (coronary artery disease) Hypertension Mesothelioma Social History Smoking and tobacco/nicotine status: current every day tobacco/nicotine user cigarettes Packs smoked per day: 1.5 Years cigarettes smoked: 52 [ Other cigarette details: was 2ppd] Alcohol intake: never Substance/Drug Use: never Marital status: service: Yes Current occupational status: retired and disabled Do you think of yourself as: Straight/Heterosexual Course 2 Vital Signs: Vital signs: Vital Signs Temperature 97.8 F 07/25/23 15:47 Pulse Rate 70 07/25/23 19:51 Respiratory Rate 16 07/25/23 15:47 Pulse Oximetry 98 07/25/23 19:51 Oxygen Delivery Me thod Room Air 07/25/23 15:47 MDM - Extremity (Nontraumatic) Medical Decision Making Care was taken over shift change, x-rays and lab work was reviewed with the patient's. Who understand is probably musculoskeletal type pain. Patient be discharged to follow-up with his PCP on an as-needed basis. Lab Data 07/25/23 17:57 07/25/23 17:57 Radiology Impressions Elbow X-Ray 07/25/23 15:53 IMPRESSION: No acute osseous abnormality. Mild degenerative arthrosis, olecranon and epicondylar spurring. Femur X-Ray 07/25/23 15:53 IMPRESSION: No acute osseous abnormality. Degenerative findings detailed above. Shoulder X-Ray 07/25/23 15:53 IMPRESSION: No acute osseous abnormality. Mild degenerative AC and glenohumeral arthrosis. Downsloping of the acromion may predispose to rotator cuff impingement. Tibia/Fibula X-Ray 07/25/23 15:53 IMPRESSION: No acute plain radiographic abnormality. Chest X-Ray 07/25/23 16:34 IMPRESSION: 1. Borderline cardiomegaly, improved from 06/20/2023. Previous vascular congestion and small pleural effusions have resolved. 2. No new airspace opacity. Mild residual strand-like basilar atelectasis. Laboratory Results WBC 4.97 10^3/uL (3.29-11.43) 07/25/23 17:57 RBC 3.95 10^6/uL (3.85-5.65) 07/25/23 17:57 Hgb 11.20 g/dL (11.27-16.99) L 07/25/23 17:57 Hct 36.4 % (37-53) L 07/25/23 17:57 MCV 92.2 fl (82-101) 07/25/23 17:57 MCH 28.4 pg (27-33) 07/25/23 17:57 MCHC 30.8 g/dL (30-55) 07/25/23 17:57 RDW 14.1 % (12.1-15.1) 07/25/23 17:57 Plt Count 162 10^3/cmm (157-399) 07/25/23 17:57 MPV 10.3 fL (7.4-10.4) 07/25/23 17:57 Neut % (Auto) 60.2 % 07/25/23 17:57 Lymph % (Auto) 22.5 % 07/25/23 17:57 Crane % (Auto) 11.1 % 07/25/23 17:57 Eos % (Auto) 5.0 % 07/25/23 17:57 Baso % (Auto) 0.8 % 07/25/23 17:57 Neut # (Auto) 2.99 10^3/uL (1.8-7.7) 07/25/23 17:57 Lymph # (Auto) 1.1 10^3/uL (0.8-4.8) 07/25/23 17:57 Crane # (Auto) 0.6 10^3/uL (0.2-0.9) 07/25/23 17:57 Eos # (Auto) 0.3 10^3/uL (0.0-0.8) 07/25/23 17:57 Baso # (Auto) 0.0 10^3/uL (0.0-0.1) 07/25/23 17:57 Nucleated RBC % (auto) 0 % 07/25/23 17:57 Nucleated RBCs # 0.0 /100WBC 07/25/23 17:57 Sodium 145 mmol/L (136-145) 07/25/23 17:57 Potassium 4.6 mmol/L (3.5-5.1) 07/25/23 17:57 Chloride 109 mmol/L (98-107) H 07/25/23 17:57 Carbon Dioxide 27 mmol/L (22-29) 07/25/23 17:57 Anion Gap 13.6 (5-19) 07/25/23 17:57 BUN 23 mg/dL (8-23) 07/25/23 17:57 Creatinine 1.2 mg/dL (0.7-1.2) 07/25/23 17:57 GFR Calculation 59.9 mL/min (90-130) L 07/25/23 17:57 Glucose 79 mg/dL (65-115) 07/25/23 17:57 Calculated Osmolality 303 mOsm/kg (285-295) H 07/25/23 17:57 Calcium 9.4 mg/dL (8.5-10.5) 07/25/23 17:57 Total Bilirubin 0.5 mg/dL (0.15-1.2) 07/25/23 17:57 AST 12 U/L (0-40) 07/25/23 17:57 ALT 8 U/L (0-41) 07/25/23 17:57 Alkaline Phosphatase 90 U/L (40-130) 07/25/23 17:57 Troponin T Baseline 27 ng/L (0-15) H 07/25/23 17:57 NT-Pro-B Natriuret Pep 670 pg/mL (0-125) H 07/25/23 17:57 Total Protein 6.9 g/dL (6.6-8.7) 07/25/23 17:57 Albumin 4.1 g/dL (3.5-5.2) 07/25/23 17:57 Globulin 2.8 g/dL (1.3-4.6) 07/25/23 17:57 All radiology interpretation(s) finalized by discharge Discharge Plan Discharge Patient Disposition: Home Clinical Impression: Musculoskeletal pain of left lower extremity Musculoskeletal arm pain Qualifiers: Laterality: left Qualified Code(s): M79.602 - Pain in left arm Condition: Stable Prescriptions: No Action topiramate [Topamax] 50 mg tablet 50 mg PO BID Qty: 60 6RF nitroglycerin 0.4 mg tablet, sublingual 0.4 mg sublingual Q5M PRN (Reason: chest pain) Qty: 30 6RF Rx Instructions: do not exceed 3 doses per episode tamsulosin 0.4 mg capsule 0.4 mg PO QPM lisinopril 20 mg Tablet 10 mg PO QAM Hold Instructions: Resume on 07/01/23. hold until you see primary care sennosides-docusate sodium [Senexon-S] 8.6-50 mg tablet 1 tab PO BID Rx Instructions: HOLD IF LOOSE STOOLS/DIARRHEA gabapentin 400 mg capsule 400 mg PO TID glucose 4 gram Tablet,Chewable 4 - 16 g PO Q15M PRN (Reason: Hypoglycemia) Rx Instructions: MAY REPEAT IF HYPOGLYCEMIA CONTINUES 15 MINUTES POST 1ST DOSE. cholecalciferol (vitamin D3) [Vitamin D3] 25 mcg (1,000 unit) Tablet 25 mcg PO TID melatonin 5 mg Tablet 5 mg PO BEDTIME omega 9-drl-toj-fish oil [Fish Oil] 1,000 mg (120 mg-180 mg) Capsule 1 cap PO BID potassium chloride 20 mEq Tablet Extended Release 10 meq PO QAM folic acid 400 mcg tablet 400 mcg PO DAILY rosuvastatin 40 mg tablet 40 mg PO QPM ipratropium-albuterol 20-100 mcg/actuation Mist 1 puff INHALATION QID furosemide 20 mg tablet 20 mg PO QAM ascorbic acid (vitamin C) [Vitamin C] 500 mg Tablet 500 mg PO BID metoprolol succinate [Toprol XL] 25 mg tablet extended release 24 hr 12.5 mg PO DAILY Qty: 30 0RF Hold Instructions: hypotension sucralfate 1 gram tablet 1 g PO DAILY Protonix 40 mg tablet,delayed release (DR/EC) 40 mg PO DAILY clopidogrel 75 mg tablet 75 mg PO DAILY polyethylene glycol 3350 17 gram/dose Powder 17 g PO DAILY 14 Days Qty: 238 0RF insulin regular human 100 unit/mL (3 mL) Insulin Pen See Rx Instructions .ROUTE .COMPLEX Qty: 15 0RF Rx Instructions: inject, subcut, tid after meals, based on sliding scale provided insulin glargine 100 unit/mL (3 mL) Insulin Pen 5 unit SUBCUT QAM Qty: 15 0RF Discharge Orders: Discharge ED (Routine); Ordered 07/25/23 Ordered By: Luis Antonio Bergeron Referrals: Portia Lawrence MD [Primary Care Provider] - 1 week Patient Instructions: Musculoskeletal Pain (ED) Activity Restrictions/Additional Instructions: Your evaluation of the pain in your arm and leg in ER included blood work and x- rays, of which did not show any acute cause for pain. Is felt that this is musculoskeletal pain. Please continue [id number] ibuprofen and/or Tylenol as needed for pain. Please follow-up with your family practice physician for further evaluation and treatment. Coding Level of Care Code ED Fighting Vehicle [employer] Maintainer for Selin Murillo
--- NOTE | 2023-07-25 16:07 | ECG_ITS ---
[facility] Test Date: 2023-07-25 Pat Name: Junior Andersen Department: Room: Gender: Male Manager Strategy: : 1950 Requested By: Foster Aguilar Order Number: [id number] Carmela MD: Gee Ochoa M.D. Measurements Intervals [place] Rate: 70 P: 109 [place]: 140 QRS: 50 QRSD: 121 T: 93 QT: 396 QTc: 427 Interpretive Statements SINUS RHYTHM MODERATE INTRAVENTRICULAR CONDUCTION DELAY [105+ ms QRS DURATION, 80+ ms Q/S IN V1/V2, NO Q AND 60+ ms R IN I/aVL/V5/V6] NONSPECIFIC ST & T-WAVE ABNORMALITY Compared to ECG 06/17/2023 14:12:40 Possible ischemia no longer present T-wave abnormality still present Electronically Signed On 07-26-2023 17:03:17 CDT by Gee Ochoa M.D. [id number]
--- NOTE | 2023-07-25 16:34 | XRR_ITS ---
PROCEDURE INFORMATION: Exam: XR Chest Exam date and time: 07/25/2023 4:41 PM Age: 72 years old Clinical indication: Other: Chest pain TECHNIQUE: Imaging protocol: Radiologic exam of the chest. Views: 1 view. COMPARISON: CR (CHEST, ) 06/20/2023 7:53 PM FINDINGS: Lungs: Mild strand-like basilar atelectasis. Pleural spaces: Previous pleural effusions and vascular congestion has improved/resolved. Previous right PICC and enteric tubes have been removed. Heart/Mediastinum: The cardiac silhouette is borderline enlarged, improved from 06/20/2023. Bones/joints: Multiple sternotomy wires are again noted. XR/XR chest 1V portable [id number] IMPRESSION: 1. Borderline cardiomegaly, improved from 06/20/2023. Previous vascular congestion and small pleural effusions have resolved. 2. No new airspace opacity. Mild residual strand-like basilar atelectasis.
[2023-07-25 18:27] LABS: Basophils % 0.8 %; Eosinophils # 0.3 10^3/uL (0.0-0.8); Hematocrit 36.4 % (37-53); Lymphocytes # 1.1 10^3/uL (0.8-4.8); Lymphocytes % 22.5 %; Mean Corpuscular HGB Conc 30.8 g/dL (30-55); Mean Corpuscular Hemoglobin 28.4 pg (27-33); Mean Corpuscular Volume 92.2 fl (82-101); Mean Platelet Volume 10.3 fL (7.4-10.4); Monocytes # 0.6 10^3/uL (0.2-0.9); Monocytes % 11.1 %; Neutrophils # 2.99 10^3/uL (1.8-7.7); Neutrophils % 60.2 %; Nucleated Red Blood Cells % 0 %; Platelet Count 162 10^3/cmm (157-399); Red Blood Count 3.95 10^6/uL (3.85-5.65); Red Cell Distribution Width 14.1 % (12.1-15.1); White Blood Count 4.97 10^3/uL (3.29-11.43)
--- NOTE | 2023-07-25 18:42 | ECG_ITS ---
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 Measurements Intervals [place] Rate: 59 P: 93 [place]: 157 QRS: 50 QRSD: 130 T: 72 QT: 417 QTc: 416 Interpretive Statements SINUS BRADYCARDIA WITH SINUS ARRHYTHMIA MODERATE INTRAVENTRICULAR CONDUCTION DELAY [105+ ms QRS DURATION, 80+ ms Q/S IN V1/V2, NO Q AND 60+ ms R IN I/aVL/V5/V6] NONSPECIFIC ST & T-WAVE ABNORMALITY Compared to ECG 07/25/2023 16:07:41 Sinus rhythm no longer present T-wave abnormality still present Electronically Signed On 07-26-2023 17:08:24 CDT by Gee Ochoa M.D. [id number]
[2023-07-25 18:49] LABS: Troponin(5th) Baseline 27 ng/L (0-15)
[2023-07-25 19:06] LABS: Alanine Aminotransferase 8 U/L (0-41); Albumin Level 4.1 g/dL (3.5-5.2); Alkaline Phosphatase 90 U/L (40-130); Anion Gap 13.6 (5-19); Aspartate Amino Transferase 12 U/L (0-40); Blood Urea Nitrogen 23 mg/dL (8-23); Calcium 9.4 mg/dL (8.5-10.5); Carbon Dioxide 27 mmol/L (22-29); Chloride 109 mmol/L (98-107); Creatinine Clr Calc Pharmacy 68.9435; Globulin 2.8 g/dL (1.3-4.6); Glomerular Filtration Rate 59.9 mL/min (90-130); Glucose 79 mg/dL (65-115); NT Pro B Type Natriuretic Pept 670 pg/mL (0-125); Osmolality Calculated 303 mOsm/kg (285-295); Potassium 4.6 mmol/L (3.5-5.1); Sodium 145 mmol/L (136-145); Total Bilirubin 0.5 mg/dL (0.15-1.2); Total Protein 6.9 g/dL (6.6-8.7)
[2023-07-25 19:51] VITALS: PULSE 70; O2SAT 98
== END 2023-07-25 19:51 | disposition home or self-care (01) ==
PROVIDERS: Emergency Provider Family Medicine; PCP Family Medicine
DX: M79.602 Pain in left arm (principal); Z79.02 Long term (current) use of antithrombotics/antiplatelets; Z79.4 Long term (current) use of insulin; M79.605 Pain in left leg; I25.2 Old myocardial infarction; I11.0 Hypertensive heart disease with heart failure; I50.20 Unspecified systolic (congestive) heart failure; J44.9 Chronic obstructive pulmonary disease, unspecified; E11.9 Type 2 diabetes mellitus without complications; I25.10 Atherosclerotic heart disease of native coronary artery without angina pectoris; Z95.1 Presence of aortocoronary bypass graft; F17.210 Nicotine dependence, cigarettes, uncomplicated
CPT/HCPCS: 36415; 71045; 73030; 73080; 73552; 73590; 80053; 83880; 84484; 85025; 93005; 99285

== ENCOUNTER → 2023-08-26 15:39 | Outpatient (BNVA) | payer OTHER, SELFPAY | PROVIDERS: PCP Family Medicine; Visit Provider Internal Medicine | DX: I25.10 Atherosclerotic heart disease of native coronary artery without angina pectoris (principal); I25.2 Old myocardial infarction; I65.23 Occlusion and stenosis of bilateral carotid arteries; J44.9 Chronic obstructive pulmonary disease, unspecified; E11.9 Type 2 diabetes mellitus without complications; G47.33 Obstructive sleep apnea (adult) (pediatric); Z99.89 Dependence on other enabling machines and devices; I11.0 Hypertensive heart disease with heart failure; I50.20 Unspecified systolic (congestive) heart failure; Z95.1 Presence of aortocoronary bypass graft; Z98.890 Other specified postprocedural states; Z72.0 Tobacco use | CPT/HCPCS: 99214 ==

== ENCOUNTER 2023-10-17 15:26 | Inpatient (IN) | payer OTHER, SELFPAY ==
[2023-10-17] VITALS (52 sets, daily range): BP systolic 120–165; BP diastolic 46–68; PULSE 48–76; RESP 8–32; TEMP 36.4–36.9; O2SAT 86–99; BMI 32.7
--- NOTE | 2023-10-17 15:28 | CTR_ITS ---
PROCEDURE INFORMATION: Exam: CT Head Without Contrast Exam date and time: 10/17/2023 3:22 PM Age: 72 years old Clinical indication: Stroke-like symptoms; Other: Left weakness; Additional info: Symptoms of acute stroke TECHNIQUE: Imaging protocol: Computed tomography of the head without contrast. Radiation optimization: All CT scans at this facility use at least one of these dose optimization techniques: automated exposure control; mA and/or kV adjustment per patient size (includes targeted exams where dose is matched to clinical indication); or iterative reconstruction. Other technique: STROKE PROTOCOL was implemented. COMPARISON: CT head wo con* [id number] 04/19/2023 5:17 PM RADIATION DOSE METRICS: Total DLP (mGy-cm): 1173 FINDINGS: Brain: No evidence of intra-axial or extra-axial hemorrhage. No mass effect or midline shift. Pena-white differentiation is maintained. Basilar cisterns are patent. Cerebral ventricles: No hydrocephalus. Paranasal sinuses: The visualized paranasal sinuses are well aerated. Mastoid air cells: The visualized mastoids and middle ears are clear. Bones: Calvarium is intact. No evidence of acute fracture. Soft tissues: No gross soft tissue abnormality. CT/CT head thrombolytic [id number] IMPRESSION: 1. No acute intracranial abnormality. ASSESSMENT: ASPECTS ([place] Stroke Program Early CT Score) is 10.
--- NOTE | 2023-10-17 15:28 | ECG_ITS ---
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 Measurements Intervals [place] Rate: 68 P: 113 [place]: 137 QRS: 49 QRSD: 136 T: 192 QT: 427 QTc: 457 Interpretive Statements SINUS RHYTHM WITH SINUS ARRHYTHMIA INTRAVENTRICULAR CONDUCTION DELAY [130+ ms QRS DURATION] Compared to ECG 07/25/2023 18:42:45 Sinus bradycardia no longer present T-wave abnormality no longer present Electronically Signed On 10-17-2023 20:19:13 CDT by Gee Ochoa M.D. [id number]
[2023-10-17 15:31] LABS: Glucose Point of Care 105 mg/dL (70-110)
--- NOTE | 2023-10-17 15:33 | CTR_ITS ---
PROCEDURE INFORMATION: Exam: CT Abdomen And Pelvis With Contrast Exam date and time: 10/17/2023 4:51 PM Age: 72 years old Clinical indication: Abdominal pain; Localized; Left lower quadrant (llq); Additional info: Llq ttp TECHNIQUE: Imaging protocol: Computed tomography of the abdomen and pelvis with contrast. Radiation optimization: All CT scans at this facility use at least one of these dose optimization techniques: automated exposure control; mA and/or kV adjustment per patient size (includes targeted exams where dose is matched to clinical indication); or iterative reconstruction. Contrast material: OMNI 350; Contrast volume: 100 ml; Contrast route: INTRAVENOUS (IV); COMPARISON: CT abdomen pelvis wo con [id number] 06/16/2023 8:24 PM RADIATION DOSE METRICS: Total DLP (mGy-cm): 118.6 FINDINGS: Lungs: Mild dependent reticular and ground-glass opacity in both lungs. Liver: The liver is normal. Gallbladder and biliary ducts: The gallbladder is absent. There is no intrahepatic or extrahepatic bile duct dilation. Pancreas: There is accessory pancreatic tissue lateral to the duodenal bulb. There is mild atrophy of the pancreas. Spleen: The spleen is mildly enlarged. Adrenal glands: The adrenal glands are unremarkable. Kidneys and ureters: There is a well-defined 3.5 x 2.6 cm left upper pole renal cyst which is stable since 06/09/2023 but density measurement is affected by beam hardening artifact on this exam. There is bilateral renal vascular calcification. There is no hydronephrosis or stones. Renal parenchymal enhancement is otherwise normal bilaterally. Stomach and bowel: The stomach is nondistended, limiting assessment of wall thickness. The small bowel is nondilated. There is circumferential mucosal thickening and minimal pericolonic edema involving the cecum and ascending colon. There is no sign of colonic obstruction. The colon is unremarkable distally. Appendix: The appendix is normal. Intraperitoneal space: There is no free air or significant intraperitoneal free fluid. Vasculature: There is moderate aortic atherosclerotic disease. The portal, splenic and superior mesenteric veins are patent. Lymph nodes: There is no lymphadenopathy in the retroperitoneum, mesentery, pelvis or inguinal regions. Urinary bladder: There is mild diffuse bladder wall thickening suggesting muscular hypertrophy. The urinary bladder is nondistended, limiting assessment of wall thickness. Reproductive: The prostate and seminal vesicles are unremarkable. Bones/joints: There is mild degenerative disease in the lumbar spine. There is mild degenerative disease of both hips. The bony pelvis is intact. Soft tissues: Intact ventral abdominal incision site. No hernia. CT/CT abdomen pelvis w con* [id number] IMPRESSION: 1. Circumferential mucosal thickening and subtle pericolonic edema involving the cecum and ascending colon consistent with infectious, inflammatory or ischemic colitis. No visible vascular occlusion or evidence of bowel necrosis. 2. Mild dependent reticular and ground-glass opacity in both lungs. Findings are similar to those seen on 06/16/2023. Possible mild chronic lung disease versus recurrent or persistent edema or infection. 3. Incidental findings above.
--- NOTE | 2023-10-17 15:35 | ED_ITS ---
HPI - Nausea/Vomiting/Diarrhea 2 General: Chief complaint: Altered Mental Status Stated complaint: stroke alert Time Seen by Provider: 10/17/23 15:27 History of Present Illness: Patient is brought in by EMS with concerns for stroke. They state they were initially called for abdominal pain. The patient states he has had diarrhea and nausea as well as abdominal pain for the past couple of days. States that today about 2 hours prior to arrival his entire left side gave out and stopped working. He was brought in with concerns for possible stroke. Review of Systems 2 General: Reports: 10 or more systems reviewed and unremarkable except in HPI and below PFSH ED 2 PFSH: Medical History Tobacco abuse NSTEMI (non-ST elevated myocardial infarction) Systolic CHF with reduced left ventricular function, NYHA class 2 Bilateral carotid artery stenosis Erectile dysfunction Urinary retention Cutaneous wart Current smoker JENAE on CPAP Acute cystitis without hematuria Phimosis BPH NOS w ur obs/LUTS COPD (chronic obstructive pulmonary disease) Hypertension Diabetes Complex partial epilepsy with generalization Myocardial infarct Chronic headache CAD (coronary artery disease) Balanitis Surgical History History of cardiac catheterization H/O heart artery stent S/P carotid endarterectomy H/O circumcision History of laparotomy History of appendectomy History of coronary artery bypass graft Family History Mother , at age 103 No problems noted. Father , at age 89 Congestive heart failure (CHF) Other CAD (coronary artery disease) Hypertension Mesothelioma Social History Smoking and tobacco/nicotine status: current every day tobacco/nicotine user cigarettes Packs smoked per day: 1.5 Years cigarettes smoked: 52 [ Other cigarette details: was 2ppd] Alcohol intake: never Substance/Drug Use: never Marital status: service: Yes Current occupational status: retired and disabled Do you think of yourself as: Straight/Heterosexual Physical Exam 2 Const: COMMON NORMALS: patient oriented x3 and alert HENMT: COMMON NORMALS: normocephalic and atraumatic HEAD & SCALP: n ormocephalic and atraumatic Eye: COMMON NORMALS: Equal, round and reactive pupils present and EOMs intact bilaterally PUPIL: Yes Equal, round and reactive pupils present Neck/C-Spine: COMMON NORMALS: full ROM and supple Resp: COMMON NORMALS: normal respiratory effort, No retractions and No use of accessory muscles Cardio: COMMON NORMALS: regular rate and regular rhythm RATE: regular rate RHYTHM: regular rhythm GI: COMMON NORMALS: Soft to palpation PALPATION: Yes Soft to palpation O THER: Generalized tenderness to palpation worse in the left lower quadrant Neuro: COMMON NORMALS: patient oriented x3 SENSORIUM/ORIENTATION: Yes alert OTHER: NIHSS equals 10 secondary to left-sided limb flaccidity and facial droop. Skin: COMMON NORMALS: no rashes or lesions noted and no wounds GENERAL SKIN EXAM: no rashes or lesions noted Course 2 Vital Signs: Vital signs: Vital Signs Temperature 97.5 F L 10/17/23 18:41 Pulse Rate 57 L 10/17/23 18:41 Respiratory Rate 16 10/17/23 18:41 Blood Pressure 165/66 10/17/23 18:41 Pulse Oximetry 97 10/17/23 16:06 Oxygen Delivery Me thod Room Air 10/17/23 16:06 MDM - Nausea/Vomiting/Diarrhea Medical Decision Making Differential diagnosis: Acute stroke, ICH, dehydration, acute electrolyte abnormality, acute kidney injury, acute colitis Patient is brought in by EMS with concerns for stroke. They state they were initially called for abdominal pain. The patient states he has had diarrhea and nausea as well as abdominal pain for the past couple of days. States that today about 2 hours prior to arrival his entire left side gave out and stopped working. He was brought in with concerns for possible stroke. Upon arrival the patient has left-sided flaccidity in both the arm and the leg. Sensation is intact throughout. He appears to have a left facial droop when he smiles. Patient has a history of coronary artery disease status post bypass and is on clopidogrel. Will activate the stroke system, check labs, CT head without IV contrast, CT abdomen pelvis with IV contrast and reassess. On reassessment spoke with the neurologist Dr. Quiroga at [facility]. He recommends tenecteplase administration. I did a rectal exam which is guaiac negative. I spoke with the patient and his about the risks and benefits of tenecteplase and they agree that he would like to be treated. Will initiate tenecteplase, obtain a CTA head and neck, and admit for further workup and treatment of a stroke. I spoke with Dr. Webster who accepts the patient for admission to the ICU. Lab Data 10/17/23 15:36 10/17/23 15:[address] 10/17/23 15:28 IMPRESSION: 1. No acute intracranial abnormality. ASSESSMENT: ASPECTS ([place] Stroke Program Early CT Score) is 10. Abdomen/Pelvis CT 10/17/23 15:33 IMPRESSION: 1. Circumferential mucosal thickening and subtle pericolonic edema involving the cecum and ascending colon consistent with infectious, inflammatory or ischemic colitis. No visible vascular occlusion or evidence of bowel necrosis. 2. Mild dependent reticular and ground-glass opacity in both lungs. Findings are similar to those seen on 06/16/2023. Possible mild chronic lung disease versus recurrent or persistent edema or infection. 3. Incidental findings above. Head/Neck CTA 10/17/23 16:07 IMPRESSION: 1. No evidence of large vessel occlusion or acute thrombosis in the head. IMPRESSION: 1. No evidence of acute thrombosis in the neck. 2. Focal high-grade stenosis of the proximal right vertebral artery V2 segment. 3. Moderate approximately 75% stenosis of the distal left common carotid artery. REFERENCES: NASCET CRITERIA. The degree of stenosis in the cervical segment of the internal carotid artery is based on NASCET criteria. Normal is no stenosis. Mild is less than 50% stenosis. Moderate is 50-69% stenosis. Severe is 70% to 99% stenosis. Total occlusion is no detectable patent lumen. Laboratory Results WBC 7.48 10^3/uL (3.29-11.43) 10/17/23 15:36 RBC 4.29 10^6/uL (3.85-5.65) 10/17/23 15:36 Hgb 12.00 g/dL (11.27-16.99) 10/17/23 15:36 Hct 38.1 % (37-53) 10/17/23 15:36 MCV 88.8 fl (82-101) 10/17/23 15:36 MCH 28.0 pg (27-33) 10/17/23 15:36 MCHC 31.5 g/dL (30-55) 10/17/23 15:36 RDW 13.5 % (12.1-15.1) 10/17/23 15:36 Plt Count 143 10^3/cmm (157-399) L 10/17/23 15:36 MPV 10.5 fL (7.4-10.4) H 10/17/23 15:36 Neut % (Auto) 71.0 % 10/17/23 15:36 Lymph % (Auto) 15.2 % 10/17/23 15:36 [place] % (Auto) 10.0 % 10/17/23 15:36 Eos % (Auto) 3.1 % 10/17/23 15:36 Baso % (Auto) 0.4 % 10/17/23 15:36 Neut # (Auto) 5.31 10^3/uL (1.8-7.7) 10/17/23 15:36 Lymph # (Auto) 1.1 10^3/uL (0.8-4.8) 10/17/23 15:36 [place] # (Auto) 0.8 10^3/uL (0.2-0.9) 10/17/23 15:36 Eos # (Auto) 0.2 10^3/uL (0.0-0.8) 10/17/23 15:36 Baso # (Auto) 0.0 10^3/uL (0.0-0.1) 10/17/23 15:36 Nucleated RBC % (auto) 0 % 10/17/23 15:36 Nucleated RBCs # 0.0 /100WBC 10/17/23 15:36 PT 13.20 SECONDS (12.1-14.9) 10/17/23 15:36 INR 0.97 (0.8-1.2) 10/17/23 15:36 APTT 34.1 SECONDS (23.9-36.7) 10/17/23 15:36 Sodium 139 mmol/L (136-145) 10/17/23 15:36 Potassium 3.9 mmol/L (3.5-5.1) 10/17/23 15:36 Chloride 103 mmol/L (98-107) 10/17/23 15:36 Carbon Dioxide 27 mmol/L (22-29) 10/17/23 15:36 Anion Gap 12.9 (5-19) 10/17/23 15:36 BUN 19 mg/dL (8-23) 10/17/23 15:36 Creatinine 1.2 mg/dL (0.7-1.2) 10/17/23 15:36 GFR Calculation 59.9 mL/min (90-130) L 10/17/23 15:36 Glucose 112 mg/dL (65-115) 10/17/23 15:36 POC Glucose 105 mg/dL (70-110) 10/17/23 15:29 Calculated Osmolality 291 mOsm/kg (285-295) 10/17/23 15:36 Calcium 8.8 mg/dL (8.5-10.5) 10/17/23 15:36 Total Bilirubin 0.5 mg/dL (0.15-1.2) 10/17/23 15:36 AST 11 U/L (0-40) 10/17/23 15:36 ALT 7 U/L (0-41) 10/17/23 15:36 Alkaline Phosphatase 97 U/L (40-130) 10/17/23 15:36 Total Protein 7.1 g/dL (6.6-8.7) 10/17/23 15:36 Albumin 3.8 g/dL (3.5-5.2) 10/17/23 15:36 Globulin 3.3 g/dL (1.3-4.6) 10/17/23 15:36 All radiology interpretation(s) finalized by discharge EKG Data EKG 1: Interpretation: ECG done October 17, 2023 at 3:26 PM and interpreted by me at 3:27 PM shows sinus rhythm, ventricular rate of 68 bpm, no ST segment elevation Critical Care Time 2 Critical Care Time: Attestation: This case had a high probability of a clinically significant, sudden, or life threatening deterioration of this patient's condition which required my full and direct attention, intervention and personal management. Critical care time spent 65 minutes Discharge Plan Discharge Patient Disposition: Admitted As Inpatient Admit Provider: Ryland Webster Clinical Impression: Stroke Condition: Stable Coding Level of Care Code ED [employer]orer for Selin Murillo
[2023-10-17 15:48] LABS: Basophils % 0.4 %; Eosinophils # 0.2 10^3/uL (0.0-0.8); Eosinophils % 3.1 %; Hematocrit 38.1 % (37-53); Lymphocytes # 1.1 10^3/uL (0.8-4.8); Lymphocytes % 15.2 %; Mean Corpuscular HGB Conc 31.5 g/dL (30-55); Mean Corpuscular Volume 88.8 fl (82-101); Mean Platelet Volume 10.5 fL (7.4-10.4); Monocytes # 0.8 10^3/uL (0.2-0.9); Neutrophils # 5.31 10^3/uL (1.8-7.7); Nucleated Red Blood Cells % 0 %; Platelet Count 143 10^3/cmm (157-399); Red Blood Count 4.29 10^6/uL (3.85-5.65); Red Cell Distribution Width 13.5 % (12.1-15.1); White Blood Count 7.48 10^3/uL (3.29-11.43)
[2023-10-17 15:59] LABS: INR 0.97 (0.8-1.2)
[2023-10-17 16:00] LABS: Partial Thromboplastin Time 34.1 SECONDS (23.9-36.7)
[2023-10-17 16:07] LABS: Alanine Aminotransferase 7 U/L (0-41); Albumin Level 3.8 g/dL (3.5-5.2); Alkaline Phosphatase 97 U/L (40-130); Anion Gap 12.9 (5-19); Aspartate Amino Transferase 11 U/L (0-40); Blood Urea Nitrogen 19 mg/dL (8-23); Calcium 8.8 mg/dL (8.5-10.5); Carbon Dioxide 27 mmol/L (22-29); Chloride 103 mmol/L (98-107); Creatinine Clr Calc Pharmacy 70.8546; Globulin 3.3 g/dL (1.3-4.6); Glomerular Filtration Rate 59.9 mL/min (90-130); Glucose 112 mg/dL (65-115); Osmolality Calculated 291 mOsm/kg (285-295); Potassium 3.9 mmol/L (3.5-5.1); Sodium 139 mmol/L (136-145); Total Bilirubin 0.5 mg/dL (0.15-1.2); Total Protein 7.1 g/dL (6.6-8.7)
--- NOTE | 2023-10-17 16:07 | CTR_ITS ---
PROCEDURE INFORMATION: Exam: CTA Head With Contrast, Arteriography Exam date and time: 10/17/2023 4:51 PM Age: 72 years old Clinical indication: Patient HX: Left side weakness; Additional info: Stroke TECHNIQUE: Imaging protocol: Computed tomographic angiography of the head with contrast. Exam focused on the arteries. 3D rendering (Not supervised by radiologist): MIP and/or 3D reconstructed images were created by the technologist. Radiation optimization: All CT scans at this facility use at least one of these dose optimization techniques: automated exposure control; mA and/or kV adjustment per patient size (includes targeted exams where dose is matched to clinical indication); or iterative reconstruction. Contrast material: OMNI 350; Contrast volume: 100 ml; Contrast route: INTRAVENOUS (IV); COMPARISON: CT head thrombolytic [id number] 10/17/2023 3:22 PM RADIATION DOSE METRICS: Total DLP (mGy-cm): 1742.22 FINDINGS: ANTERIOR CIRCULATION: Right internal carotid artery: Patent. Right middle cerebral artery: Patent. Right anterior cerebral artery: Patent. Left internal carotid artery: Patent. Left middle cerebral artery: Patent. Left anterior cerebral artery: Patent. POSTERIOR CIRCULATION: Right vertebral artery: Patent. Left vertebral artery: Patent. Basilar artery: Patent. Right posterior cerebral artery: Patent. Left posterior cerebral artery: Patent. PROCEDURE INFORMATION: Exam: CTA Neck With Contrast Exam date and time: 10/17/2023 4:51 PM Age: 72 years old Clinical indication: Patient HX: Left side weakness; Additional info: Stroke TECHNIQUE: Imaging protocol: Computed tomographic angiography of the neck with contrast. Exam focused on the cervical segments of the vasculature. 3D rendering (Not supervised by radiologist): MIP and/or 3D reconstructed images were created by the technologist. Radiation optimization: All CT scans at this facility use at least one of these dose optimization techniques: automated exposure control; mA and/or kV adjustment per patient size (includes targeted exams where dose is matched to clinical indication); or iterative reconstruction. Contrast material: OMNI 350; Contrast volume: 100 ml; Contrast route: INTRAVENOUS (IV); COMPARISON: CR XR cervical spine 3V* [id number] 03/19/2023 10:30 AM RADIATION DOSE METRICS: Total DLP (mGy-cm): 1742.22 FINDINGS: Aortic arch: Atherosclerosis of the visualized thoracic aorta without aneurysmal dilatation or dissection. Right common carotid artery: Patent. No evidence of hemodynamically significant stenosis. Right internal carotid artery: Patent. No evidence of hemodynamically significant stenosis. Right external carotid artery: Patent. Left common carotid artery: Patent. Predominantly noncalcified atherosclerotic plaque results in moderate 75% narrowing of the proximal left common carotid artery (image 93 of series 2). Noncalcified atherosclerotic plaque results in approximately 50% narrowing of the distal common carotid artery (image 182 of series 2) Left internal carotid artery: Patent. No evidence of hemodynamically significant stenosis. Left external carotid artery: Patent. Right vertebral artery: Patent. There is focal high-grade stenosis of the proximal V2 segment (images 148-154 of series 2). Left vertebral artery: Patent. Soft tissues: No evidence of fluid collection or hematoma. There is bilateral hilar adenopathy. Bones/joints: No evidence of acute fracture or subluxation of the cervical spine. Moderate-severe right-sided foraminal stenosis at C5-C6. Consider correlation with follow-up outpatient MRI to evaluate for neural impingement. CT/CT angio headneck* [id number] IMPRESSION: 1. No evidence of large vessel occlusion or acute thrombosis in the head. IMPRESSION: 1. No evidence of acute thrombosis in the neck. 2. Focal high-grade stenosis of the proximal right vertebral artery V2 segment. 3. Moderate approximately 75% stenosis of the distal left common carotid artery. REFERENCES: NASCET CRITERIA. The degree of stenosis in the cervical segment of the internal carotid artery is based on NASCET criteria. Normal is no stenosis. Mild is less than 50% stenosis. Moderate is 50-69% stenosis. Severe is 70% to 99% stenosis. Total occlusion is no detectable patent lumen.
--- NOTE | 2023-10-17 16:27 | PC.NURSE ---
TNK DELAY D/T IV ACCESS. PT HAD 1 IV IN LEFT AC, ANOTHER IV NEEDED TO BE PLACED. NURSE TRIED TWICE, ULTRASOUND NEEDED FOR IV.
[2023-10-17] MEDS: tenecteplase 50mg Kit (STROKE) 25 MG IVP (16:34)
--- NOTE | 2023-10-17 16:39 | PC.NURSE ---
Arrived to the unit 1525 to assist with Stroke alert, observed the process throughout and provided guidance for provider on stroke protocols.
[2023-10-17] MEDS: iohexol 350 mg/mL 500 mL Btl (per mL) IV (17:09)
--- NOTE | 2023-10-17 18:15 | PM.HP ---
Providers/Chief Complaint Admitting Physician: Ryland Webster MD Primary Care Provider: Portia Lawrence MD Chief Complaint: stroke alert History of Present Illness Junior Andersen is a 72 year old male with a past medical history of CAD status post stenting, CABG, history of upper GI bleed found to have mild gastritis, healing ulcers, currently on Plavix, history of bowel obstruction, type 2 diabetes mellitus, hypertension, current smoker, CHF, who presents [facility] due to left-sided weakness, diarrhea. Currently patient is alert to person, to place, not to time he can follow commands, can answer questions but at times becomes dazed, history taking was helped by patient's at bedside. According to patient and , he has been dealing with diarrhea, and abdominal pain for the last few days, no recent antibiotic use, he was given hydrocodone by his home health care nurse, stepped outside, upon reexamination by , patient displayed left-sided weakness, left-sided flaccid paralysis, left facial droop, so immediately 911 was called Was and stroke alert was activated, NIH stroke scale on admission was 11, initial head CT within normal limits, ER provider spoke to Dr. Matta at [facility], who recommended tenecteplase, as there was concerns for bloody stools by patient, Hemoccult stool was obtained, which was guaiac negative, after discussing the risk and benefits with patient and , family agreed to proceed with tenecteplase, patient was given tenecteplase, CTA head and neck no evidence of large vessel occlusion, but was found to have focal high-grade stenosis in the proximal right vertebral artery V2 segment, moderate approximately 75% stenosis of the distal left common artery carotid, currently he is alert to person, to place, not to time is a mild left facial droop, slight slurring of his words, continues to have left-sided flaccid paralysis this is about 1 hour status post tPA, continues to have left-sided flaccid paralysis, NIH stroke scale is about 10-11, is at bedside, hemodynamically stable, no bloody or black stools, no hemoptysis does complain of abdominal pain, on room air Review of Systems Const: Denies: fever(s) Card: Denies: chest pain Resp: Denies: dyspnea GI: Reports: abdominal pain and diarrhea : Denies: flank pain Neuro: Reports: numbness in extremities, weakness in extremities, sensory changes and Slurred speech present; Denies: headache(s) Medications/Allergies Home Medications Medication Instructions Recorded Confirmed Last Taken Type topiramate 50 mg tablet (Topamax) 50 mg PO BID #60 tabs 07/07/19 08/26/23 06/09/23 Rx tamsulosin 0.4 mg capsule 0.4 mg PO QPM BPH 12/06/20 08/26/23 06/08/23 History cholecalciferol (vitamin D3) 25 25 mcg PO TID 12/13/22 08/26/23 06/09/23 History mcg (1,000 unit) tablet (Vitamin D3) gabapentin 400 mg capsule 400 mg PO TID 12/13/22 08/26/23 06/09/23 History glucose 4 gram chewable tablet 4 - 16 g PO Q15M PRN Hypoglycemia 12/13/22 08/26/23 Unknown History lisinopril 20 mg tablet 10 mg PO QAM 12/13/22 08/26/23 06/09/23 History melatonin 5 mg tablet 5 mg PO BEDTIME 12/13/22 08/26/23 06/08/23 History omega 9-pbz-izd-fish oil 1,000 mg 1 cap PO BID 12/13/22 08/26/23 06/09/23 History (120 mg-180 mg) capsule (Fish Oil) potassium chloride 20 mEq 10 meq PO QAM 12/13/22 08/26/23 06/09/23 History tablet,extended release sennosides 8.6 mg-docusate sodium 1 tab PO BID 12/13/22 08/26/23 Unknown History 50 mg tablet (Senexon-S) nitroglycerin 0.4 mg sublingual 0.4 mg sublingual Q5M PRN chest 02/25/23 08/26/23 Unknown Rx tablet pain #30 tabs folic acid 400 mcg tablet 400 mcg PO DAILY 04/19/23 08/26/23 06/09/23 History furosemide 20 mg tablet 20 mg PO QAM 04/19/23 08/26/23 06/09/23 History ipratropium 20 mcg-albuterol 100 1 puff inhalation QID 04/19/23 08/26/23 06/09/23 History mcg/actuation mist for inhalation rosuvastatin 40 mg tablet 40 mg PO QPM 04/19/23 08/26/23 06/08/23 History ascorbic acid (vitamin C) 500 mg 500 mg PO BID 06/09/23 08/26/23 06/09/23 History tablet (Vitamin C) metoprolol succinate 25 mg 12.5 mg (1/2 x 25 mg) PO DAILY #30 06/11/23 08/26/23 Unknown Rx tablet,extended release 24 hr tabs (Toprol XL) clopidogrel 75 mg tablet 75 mg PO DAILY 06/17/23 08/26/23 Unknown History pantoprazole 40 mg tablet,delayed 40 mg PO DAILY 06/17/23 08/26/23 Unknown History release (Protonix) sucralfate 1 gram tablet 1 g PO DAILY 06/17/23 08/26/23 Unknown History insulin glargine 100 unit/mL (3 5 unit (0.05 mL) SUBCUT QAM #15 mL 06/24/23 08/26/23 06/08/23 Rx mL) subcutaneous pen insulin regular human 100 unit/mL See Rx Instructions .Route 06/24/23 08/26/23 06/09/23 Rx (3 mL) subcutaneous pen .COMPLEX #15 mL polyethylene glycol 3350 17 17 g PO DAILY 14 days #238 grams 06/24/23 08/26/23 Unknown Rx gram/dose oral powder Allergies Allergy/AdvReac Type Severity Reaction Status Date / Time adhesive tape Allergy ALGY-Rash Verified 10/17/23 15:43 PFSH Acute PFSH: Medical History Tobacco abuse NSTEMI (non-ST elevated myocardial infarction) Systolic CHF with reduced left ventricular function, NYHA class 2 Bilateral carotid artery stenosis Erectile dysfunction Urinary retention Cutaneous wart Current smoker JENAE on CPAP Acute cystitis without hematuria Phimosis BPH NOS w ur obs/LUTS COPD (chronic obstructive pulmonary disease) Hypertension Diabetes Complex partial epilepsy with generalization Myocardial infarct Chronic headache CAD (coronary artery disease) Balanitis Surgical History History of cardiac catheterization H/O heart artery stent S/P carotid endarterectomy H/O circumcision History of laparotomy History of appendectomy History of coronary artery bypass graft Family History Mother , at age 103 No problems noted. Father , at age 89 Congestive heart failure (CHF) Other CAD (coronary artery disease) Hypertension Mesothelioma Social History Smoking and tobacco/nicotine status: current every day tobacco/nicotine user cigarettes Packs smoked per day: 1.5 Years cigarettes smoked: 52 [ Other cigarette details: was 2ppd] Alcohol intake: never Substance/Drug Use: never Marital status: service: Yes Current occupational status: retired and disabled Do you think of yourself as: Straight/Heterosexual Vitals/I&O/Wt Last Vital Signs Temp 97.5 F L 10/17/23 15:34 Pulse 57 L 10/17/23 15:34 BP 165/66 10/17/23 15:34 Pulse Ox 97 10/17/23 16:06 O2 Del Method Room Air 10/17/23 16:06 Weight last 48 hrs Weight 105.687 kg Physical Exam Const: COMMON NORMALS: no acute distress ORIENTATION/CONSCIOUSNESS: Yes awake, Yes oriented to person and Yes oriented to place; not oriented to time HENMT: COMMON NORMALS: normocephalic HEAD & SCALP: normocephalic Eye: COMMON NORMALS: Equal, round and reactive pupils present Neck/C-Spine: COMMON NORMALS: no JVD Lymph: LYMPHATIC: no lymphadenopathy noted Chest: COMMONS NORMALS: normal inspection of the chest Resp: COMMON NORMALS: normal respiratory effort, No retractions, No use of accessory muscles and clear to auscultation bilaterally AUSCULTATION: clear to auscultation bilaterally Cardio: COMMON NORMALS: regular rate, regular rhythm, S1 normal heart sound present and S2 normal heart sound present RATE: regular rate RHYTHM: regular rhythm HEART SOUNDS: S1 normal heart sound present and S2 normal heart sound present GI: COMMON NORMALS: Normal to inspection, nondistended, normoactive bowel sounds present, Soft to palpation and non-tender OTHER: surgical scar over abdomen : COMMON NORMALS: Yes no CVA tenderness Extremity: COMMON NORMALS: no pedal edema Neuro: OTHER: -On examination, flaccid paralysis left upper left lower extremity, slight left facial droop at times word finding difficulty, pupils equal round reactive to light, has paresthesias left upper and left lower extremities, Data 10/17/23 15:36 10/17/23 15:36 A&P Assessment and plan (1) Stroke: (2) 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 transplanted heart: [place] heart Associated angina: angina presence unspecified Qualified Code(s): I25.10 - Atherosclerotic heart disease of [place] coronary artery without angina pectoris (4) Systolic CHF with reduced left ventricular function, NYHA class 2: (5) Hypertension: Qualifiers: Hypertension type: primary hypertension Qualified Code(s): I10 - Essential (primary) hypertension Plan Acute CVA ? Status post tPA -On examination, flaccid paralysis left upper left lower extremity, slight left facial droop at times word finding difficulty, pupils equal round reactive to light, has paresthesias left upper and left lower extremities, CTA - CT/CT angio headneck* [id number] IMPRESSION: 1. No evidence of large vessel occlusion or acute thrombosis in the head. IMPRESSION: 1. No evidence of acute thrombosis in the neck. 2. Focal high-grade stenosis of the proximal right vertebral artery V2 segment. 3. Moderate approximately 75% stenosis of the distal left common carotid artery. Plan ? tPA precautions ? Monitor blood pressure, treat if systolic greater than 185 or diastolic greater than 110 ? Monitor for changes in mentation if so we will do a repeat head CT stat ? Repeat head CT in 24 hours ? As he had complaints of bloody stools, nothing currently, monitor hemoglobin closely, hemoglobin every 6 hours -Concern for bloody stools, guaiac stool negative, monitor hemodynamics closely, monitor hemoglobin closely. Has a history of gastritis, gastric ulcers, ? Protonix 40 IV twice daily ? Hold off on aspirin until 24 hours ? Hold off on anticoagulant therapy DVT prophylaxis until 24 hours until repeat head CT is back ? Will keep n.p.o., given his dense left hemiplegic stroke, at times his word finding difficulty high aspiration risk, keep n.p.o., NIH stroke scale ? Neurochecks ? Aspiration precautions ? IV fluids ? Monitor mentation closely ? Full code ? 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 transplanted heart: [place] heart Associated angina: angina presence unspecified Systolic CHF with reduced left ventricular function, NYHA class 2 I50.20 Primary hypertension I10 Hypertension type: primary hypertension
[2023-10-17 21:01] LABS: NT Pro B Type Natriuretic Pept 977 pg/mL (0-125)
[2023-10-17] MEDS: metroNIDAZOLE IV 500 MG/100 ML PREMIX 100 MG IV (21:53)
[2023-10-17] MEDS: ciprofloxacin 400 MG/200 ML PREMIX 200 MG IV (21:53)
[2023-10-17] MEDS: pantoprazole 40 mg SDV IVP (21:53)
[2023-10-17] MEDS: sodium chloride 0.9% 1,000 ML 75 ML IV (21:54)
--- NOTE | 2023-10-17 23:47 | PC.NURSE ---
Patients dexcom reads 110
[2023-10-18] VITALS (69 sets, daily range): BP systolic 122–155; BP diastolic 46–75; PULSE 43–74; RESP 11–30; TEMP 36.5–36.9; O2SAT 91–99; BMI 32.7
[2023-10-18] MEDS: morphine 4 mg/mL SDV 1 mL 2 MG IVP ×3 (00:56→20:53)
[2023-10-18] MEDS: metroNIDAZOLE IV 500 MG/100 ML PREMIX 100 MG IV ×3 (04:40→20:43)
[2023-10-18 04:54] LABS: Add Urine Microscopic? NO; Charge for UA Resulting for Rev
[2023-10-18 04:55] LABS: Bilirubin Urine Neg (Negative); Blood Urine Neg (Negative); Glucose Urine UA Norm (Normal); Ketones Urine 1+ (Negative); Leukocyte Esterase Urine Negative (Negative); Nitrate Urine Negative (Negative); Protein Urine Neg (Negative); Urine Appearance Clear (CLEAR); Urine Color Dark Yellow (Yellow); Urobilinogen Urine Neg (Negative); pH Urine 5 (5-7)
[2023-10-18 05:04] LABS: Amphetamines Screen Urine Negative (Negative); Barbiturates Screen Urine Negative (Negative); Benzodiazepines Screen Urine Negative (Negative); Cocaine Screen Urine Negative (Negative); Opiate Screen Urine Positive (Negative); PCP Screen Urine Negative (Negative); THC Screen Urine Negative (Negative)
--- NOTE | 2023-10-18 07:50 | PC.PHAR ---
PT IS [facility] FOR MED LIST 10/18/23 7:48AM
--- NOTE | 2023-10-18 08:52 | PC.NURSE ---
Patient's glucose is 103 at 0852. Reading per CGM.
--- NOTE | 2023-10-18 08:57 | PC.PHAR ---
PLAVIX 75MG NOT ON [facility]-UNCOMFORTABLE REMOVING. LISINOPRIL 20MG NOT ON [facility]-REMOVED
[2023-10-18] MEDS: pantoprazole 40 mg SDV IVP ×2 (09:25→20:35)
[2023-10-18] MEDS: ciprofloxacin 400 MG/200 ML PREMIX 200 MG IV ×2 (09:25→20:35)
[2023-10-18] MEDS: dextrose 5%-sod chloride 0.45% 1,000 ML 100 ML IV (09:25)
--- NOTE | 2023-10-18 09:33 | PC.SOCIAL ---
IMM Update Pg. 2 of IMM updated and reviewed with patients who verbalized understanding. Copy provided.
--- NOTE | 2023-10-18 14:45 | P.PN_ITS ---
Subjective 2 Subjective: Patient was seen this morning, he is alert to person, to place, not to time he follows commands, he tells me he really wants to go home, has a slight left facial droop, at times word finding difficulty has flaccid paralysis of the left upper and left lower extremities, we discussed monitoring him in the hospital given his left-sided flaccid paralysis status post TNKase, denies any headache, no blurry vision, will do a repeat head CT in about 24 hours after his tPA dose, repeat his blood work, he is going to need extensive physical therapy, speech therapy, with a stroke, he voices understanding, denies any abdominal pain no bloody or black stools reported Vitals/I&O/Wt Last Vital Signs Temp 97.8 F 10/18/23 13:30 Pulse 45 L 10/18/23 13:30 Resp 12 10/18/23 13:30 BP 155/71 10/18/23 13:30 Pulse Ox 98 10/18/23 11:53 O2 Del Method Room Air 10/17/23 23:26 10/17/23 10/18/23 10/18/23 22:59 06:59 14:59 Intake Total 300 / 300 100 / 400 300 / 300 Output Total 750 / 750 600 / 600 Balance 300 / 300 -650 / -350 -300 / -300 Weight last 48 hrs Weight 106.458 kg Weight 106.458 kg Weight 105.687 kg Physical Exam 2 Const: COMMON NORMALS: no acute distress ORIENTATION/CONSCIOUSNESS: Yes awake, Yes oriented to person and Yes oriented to place; not oriented to time Resp: COMMON NORMALS: normal respiratory effort, No retractions, No use of accessory muscles and clear to auscultation bilaterally AUSCULTATION: clear to auscultation bilaterally Cardio: COMMON NORMALS: regular rate, regular rhythm, S1 normal heart sound present and S2 normal heart sound present RATE: regular rate RHYTHM: r egular rhythm HEART SOUNDS: S1 normal heart sound present and S2 normal heart sound present GI: COMMON NORMALS: Normal to inspection, nondistended, normoactive bowel sounds present and non-tender Extremity: COMMON NORMALS: no pedal edema Neuro: SENSORIUM/ORIENTATION: Yes oriented to person, Yes oriented to place and No oriented to time OTHER: Pupils are equal round reactive to light, has slight left facial droop, slight slurring of his words, at times word finding difficulty left-sided flaccid paralysis Psych: COMMON NORMALS: mental status grossly normal Data 10/17/23 15:36 10/17/23 15:36 A&P Assessment and plan (1) Stroke: (2) 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 transplanted heart: [place] heart Associated angina: a ngina presence unspecified Qualified Code(s): I25.10 - Atherosclerotic heart disease of [place] coronary artery without angina pectoris (4) Systolic CHF with reduced left ventricular function, NYHA class 2: (5) Hypertension: Qualifiers: Hypertension type: primary hypertension Qualified Code(s): I10 - Essential (primary) hypertension Plan Acute CVA ? Status post tPA -On examination, flaccid paralysis left upper left lower extremity, slight left facial droop at times word finding difficulty, pupils equal round reactive to light, has paresthesias left upper and left lower extremities, CTA - CT/CT angio headneck* [id number] IMPRESSION: 1. No evidence of large vessel occlusion or acute thrombosis in the head. IMPRESSION: 1. No evidence of acute thrombosis in the neck. 2. Focal high-grade stenosis of the proximal right vertebral artery V2 segment. 3. Moderate approximately 75% stenosis of the distal left common carotid artery. Plan ? tPA precautions ? Monitor blood pressure, treat if systolic greater than 185 or diastolic greater than 110 ? Monitor for changes in mentation if so we will do a repeat head CT stat ? Repeat head CT in 24 hours, pending ? As he had complaints of bloody stools, nothing currently, monitor hemoglobin closely, hemoglobin every 6 hours -Concern for bloody stools, guaiac stool negative, monitor hemodynamics closely, monitor hemoglobin closely. Has a history of gastritis, gastric ulcers, ? Protonix 40 IV twice daily ? Hold off on aspirin until 24 hours ? Hold off on anticoagulant therapy DVT prophylaxis until 24 hours until repeat head CT is back ? Will keep n.p.o., given his dense left hemiplegic stroke, at times his word finding difficulty high aspiration risk, keep n.p.o., NIH stroke scale ? Neurochecks ? Aspiration precautions ? IV fluids ? Monitor mentation closely ? Full code ? SCDs for DVT prophylaxis Plan for today, status post tPA, head CT, repeat blood work, will decide on rectal aspirin based upon head CT findings decide on Lovenox based on head CT findings, PT OT, speech therapy eval, will keep him n.p.o. 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 transplanted heart: [place] heart Associated angina: angina presence unspecified Systolic CHF with reduced left ventricular function, NYHA class 2 I50.20 Primary hypertension I10 Hypertension type: primary hypertension
--- NOTE | 2023-10-18 15:00 | CTR_ITS ---
PROCEDURE INFORMATION: Exam: CT Head Without Contrast Exam date and time: 10/18/2023 2:59 PM Age: 72 years old Clinical indication: Altered mental status/memory loss; Confusion or disorientation; Additional info: 24 hours S/P tpa TECHNIQUE: Imaging protocol: Computed tomography of the head without contrast. Radiation optimization: All CT scans at this facility use at least one of these dose optimization techniques: automated exposure control; mA and/or kV adjustment per patient size (includes targeted exams where dose is matched to clinical indication); or iterative reconstruction. COMPARISON: CT angio headneck* [id number] 10/17/2023 4:51 PM RADIATION DOSE METRICS: Total DLP (mGy-cm): 1104.08 FINDINGS: Brain: No hemorrhage. No edema. Mild diffuse cerebral atrophy and sequela of chronic small vessel ischemic disease. Old lacunar infarcts noted in the right basal ganglia. No mass effect. Cerebral ventricles: No ventriculomegaly. Paranasal sinuses: Visualized sinuses are unremarkable. No fluid levels. Mastoid air cells: Visualized mastoid air cells are well aerated. Bones: Unremarkable. No acute fracture. Soft tissues: Unremarkable. CT/CT head wo con* [id number] IMPRESSION: No acute intracranial abnormality.
[2023-10-18 16:30] LABS: Basophils % 0.5 %; Eosinophils # 0.2 10^3/uL (0.0-0.8); Eosinophils % 2.7 %; Hematocrit 37.4 % (37-53); Lymphocytes % 17.6 %; Mean Corpuscular HGB Conc 31.3 g/dL (30-55); Mean Corpuscular Hemoglobin 27.7 pg (27-33); Mean Corpuscular Volume 88.4 fl (82-101); Mean Platelet Volume 10.5 fL (7.4-10.4); Monocytes # 0.6 10^3/uL (0.2-0.9); Monocytes % 10.6 %; Neutrophils % 68.4 %; Nucleated Red Blood Cells % 0 %; Platelet Count 131 10^3/cmm (157-399); Red Blood Count 4.23 10^6/uL (3.85-5.65); Red Cell Distribution Width 13.2 % (12.1-15.1); White Blood Count 5.56 10^3/uL (3.29-11.43)
[2023-10-18 16:50] LABS: INR 1.06 (0.8-1.2)
[2023-10-18 16:55] LABS: Anion Gap 12.3 (5-19); Blood Urea Nitrogen 17 mg/dL (8-23); Calcium 8.5 mg/dL (8.5-10.5); Carbon Dioxide 28 mmol/L (22-29); Chloride 102 mmol/L (98-107); Chol HDL Ratio 4.47 mg/dL (1.0-5.00); Cholesterol 143 mg/dL (0-200); Creatinine Clr Calc Pharmacy 71.1044; Glomerular Filtration Rate 59.9 mL/min (90-130); Glucose 153 mg/dL (65-115); HDL Cholesterol 32 mg/dL (60-100); LDL Cholesterol Calculated 85 mg/dL (50-129); LDL HDL Ratio 2.66 RATIO (0.00-3.22); Osmolality Calculated 291 mOsm/kg (285-295); Potassium 4.3 mmol/L (3.5-5.1); Sodium 138 mmol/L (136-145); Triglycerides 129 mg/dL (0-150)
[2023-10-18] MEDS: aspirin 300 mg Supp PR (16:58)
[2023-10-18 19:23] LABS: Estmated Average Glucose 180; Hemoglobin A1C 7.9 % (4.0-6.0)
[2023-10-18 20:33] LABS: Glucose Point of Care 121 mg/dL (70-110)
[2023-10-18] MEDS: enoxaparin 40 mg/0.4 mL Syringe SUBCUT (22:02)
[2023-10-18] MEDS: dextrose 5%-sod chloride 0.9% 1,000 ML 75 ML IV (22:03)
[2023-10-19] VITALS (10 sets, daily range): BP systolic 115–155; BP diastolic 47–84; PULSE 50–78; RESP 15–19; TEMP 36.5–36.8; O2SAT 91–97
[2023-10-19] MEDS: morphine 4 mg/mL SDV 1 mL 2 MG IVP ×2 (04:26→10:04)
[2023-10-19] MEDS: metroNIDAZOLE IV 500 MG/100 ML PREMIX 100 MG IV ×3 (04:27→20:32)
[2023-10-19 05:56] LABS: Basophils % 0.8 %; Eosinophils # 0.3 10^3/uL (0.0-0.8); Eosinophils % 5.4 %; Hematocrit 38.6 % (37-53); Lymphocytes % 18.4 %; Mean Corpuscular HGB Conc 31.6 g/dL (30-55); Mean Corpuscular Hemoglobin 28.4 pg (27-33); Mean Corpuscular Volume 89.8 fl (82-101); Mean Platelet Volume 11.1 fL (7.4-10.4); Monocytes # 0.6 10^3/uL (0.2-0.9); Nucleated Red Blood Cells % 0 %; Platelet Count 133 10^3/cmm (157-399); Red Cell Distribution Width 13.2 % (12.1-15.1); White Blood Count 5.23 10^3/uL (3.29-11.43)
[2023-10-19 06:21] LABS: Anion Gap 12.8 (5-19); Blood Urea Nitrogen 15 mg/dL (8-23); Calcium 8.3 mg/dL (8.5-10.5); Carbon Dioxide 25 mmol/L (22-29); Chloride 105 mmol/L (98-107); Creatinine Clr Calc Pharmacy 73.6624; Glomerular Filtration Rate 59.9 mL/min (90-130); Glucose 142 mg/dL (65-115); Osmolality Calculated 291 mOsm/kg (285-295); Potassium 3.8 mmol/L (3.5-5.1); Sodium 139 mmol/L (136-145)
[2023-10-19 06:30] LABS: Glucose Point of Care 156 mg/dL (70-110)
[2023-10-19] MEDS: aspirin 300 mg Supp PR (08:09)
[2023-10-19] MEDS: pantoprazole 40 mg SDV IVP ×2 (08:10→20:33)
[2023-10-19] MEDS: ciprofloxacin 400 MG/200 ML PREMIX 200 MG IV ×2 (09:54→21:48)
--- NOTE | 2023-10-19 10:21 | CTR_ITS ---
PROCEDURE INFORMATION: Exam: CT Abdomen And Pelvis Without Contrast Exam date and time: 10/19/2023 10:35 AM Age: 72 years old Clinical indication: Other: S/s TECHNIQUE: Imaging protocol: Computed tomography of the abdomen and pelvis without contrast. Radiation optimization: All CT scans at this facility use at least one of these dose optimization techniques: automated exposure control; mA and/or kV adjustment per patient size (includes targeted exams where dose is matched to clinical indication); or iterative reconstruction. COMPARISON: CT abdomen pelvis w con* [id number] 10/17/2023 4:51 PM RADIATION DOSE METRICS: Total DLP (mGy-cm): 1076.6 FINDINGS: Lungs: Interstitial and minimal alveolar edema in the visualized lower lungs. Liver: Unremarkable. Gallbladder and biliary ducts: Cholecystectomy. Pancreas: Unremarkable Spleen: Normal. No splenomegaly. Adrenal glands: Normal. Kidneys and ureters: 3.5 x 2.5 cm cyst in the upper pole of the left kidney again noted. No hydronephrosis. Stomach and bowel: Improvement of previously seen edema of right colon. Minimal gastric mucosal thickening noted throughout. No obstruction. No acute inflammation. Appendix: No evidence of appendicitis. Intraperitoneal space: No free air. No significant fluid collection. Vasculature: Atherosclerotic calcifications throughout. No abdominal aortic aneurysm. Lymph nodes: No enlarged lymph nodes. Urinary bladder: Unremarkable as visualized. Reproductive: Unremarkable as visualized. Bones/joints: No acute fracture. Soft tissues: No significant herniation. CT/CT abdomen pelvis wo con [id number] IMPRESSION: Improvement of previously seen right colonic wall thickening and edema. Minimal gastric mucosal thickening, suggesting gastritis. No signs of bowel obstruction.
--- NOTE | 2023-10-19 12:57 | P.PN_ITS ---
Subjective 2 Subjective: Patient was seen this morning, nursing staff are at bedside, he is alert oriented x 3, following all commands, does report feeling hungry, no choking or coughing episode he is still n.p.o., his left upper extremity weakness status post CVA is improving, his strength of his left upper extremity is improving he can move his fingers, raise his arm, continues to have left lower extremity weakness I was paged to patient's room about 30 minutes after as patient was having severe right upper quadrant pain, on examination, patient was complaining of severe right upper quadrant pain, not improving with 1 mg of morphine, on examination he has good bowel sounds no guarding, no rebound, rigidity, but does have significant right upper quadrant tenderness to palpation, I ordered another 1 mg of morphine, and ordered a CT scan abdomen pelvis, CT scan abdominal pelvis, ordered does not show any acute findings, his abdominal pain is improving as per nursing staff will continue to monitor Vitals/I&O/Wt Last Vital Signs Temp 97.8 F 10/19/23 12:00 Pulse 63 10/19/23 12:00 Resp 18 10/19/23 10:04 BP 155/84 10/19/23 12:00 Pulse Ox 91 10/19/23 12:00 O2 Del Method Room Air 10/19/23 12:00 10/18/23 10/19/23 10/19/23 22:59 06:59 14:59 Intake Total 2300 / 2600 100 / 2700 200 / 200 Output Total 790 / 1390 275 / 1665 500 / 500 Balance 1510 / 1210 -175 / 1035 -300 / -300 Weight last 48 hrs Weight 114.351 kg Weight 106.458 kg Weight 106.458 kg Weight 105.687 kg Physical Exam 2 Const: COMMON NORMALS: no acute distress and patient oriented x3 Neck/C-Spine: COMMON NORMALS: no JVD Resp: COMMON NORMALS: normal respiratory effort, No retractions, No use of accessory muscles and clear to auscultation bilaterally AUSCULTATION: clear to auscultation bilaterally Cardio: COMMON NORMALS: no JVD, regular rate, regular rhythm, S1 normal heart sound present and S2 normal heart sound present RATE: regular rate RHYTHM: regular rhythm HEART SOUNDS: S1 normal heart sound present and S2 normal heart sound present GI: OTHER: Abdomen soft, nondistended, good bowel sounds, no guarding, no rebound, rigidity Extremity: COMMON NORMALS: no pedal edema Neuro: COMMON NORMALS: patient oriented x3 Psych: COMMON NORMALS: mental status grossly normal Data 10/19/23 04:56 10/19/23 04:56 A&P Assessment and plan (1) Stroke: (2) 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 transplanted heart: [place] heart Associated angina: a ngina presence unspecified Qualified Code(s): I25.10 - Atherosclerotic heart disease of [place] coronary artery without angina pectoris (4) Systolic CHF with reduced left ventricular function, NYHA class 2: (5) Hypertension: Qualifiers: Hypertension type: primary hypertension Qualified Code(s): I10 - Essential (primary) hypertension Plan Acute CVA ? Status post tPA -On examination, flaccid paralysis left upper left lower extremity, slight left facial droop at times word finding difficulty, pupils equal round reactive to light, has paresthesias left upper and left lower extremities, CTA - CT/CT angio headneck* [id number] IMPRESSION: 1. No evidence of large vessel occlusion or acute thrombosis in the head. IMPRESSION: 1. No evidence of acute thrombosis in the neck. 2. Focal high-grade stenosis of the proximal right vertebral artery V2 segment. 3. Moderate approximately 75% stenosis of the distal left common carotid artery. ? Repeat head CT within normal limits Plan ? Off tPA precautions ? Monitor blood pressure, treat if systolic greater than 185 or diastolic greater than 110 ? Monitor for changes in mentation if so we will do a repeat head CT stat ? As he had complaints of bloody stools, nothing currently, monitor hemoglobin closely, hemoglobin stable -Concern for bloody stools, guaiac stool negative, monitor hemodynamics closely, monitor hemoglobin closely. Has a history of gastritis, gastric ulcers, - Protonix 40 IV twice daily ? On aspirin 325 mg rectally ? Will keep n.p.o., given his dense left hemiplegic stroke, at times his word finding difficulty high aspiration risk, keep n.p.o., speech therapy NIH stroke scale ? CT scan on admission showed findings concerning for colitis, on Cipro and Flagyl ? Persistent abdominal pain, repeat CT scan no acute findings, monitor ? PT OT ? Neurochecks ? Aspiration precautions ? IV fluids ? Monitor mentation closely ? Full code ? SCDs for DVT prophylaxis, start Lovenox Plan for today, CT scan abdomen pelvis for abdominal pain, ordered, follow-up test results within normal limits, continue Cipro, continue Flagyl, morphine for pain, serial abdominal exams, continue PT OT, speech therapy eval, keep n.p.o. 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 transplanted heart: [place] heart Associated angina: angina presence unspecified Systolic CHF with reduced left ventricular function, NYHA class 2 I50.20 Primary hypertension I10 Hypertension type: primary hypertension
[2023-10-19] MEDS: dextrose 5%-sod chloride 0.9% 1,000 ML 75 ML IV (14:40)
[2023-10-19 20:25] LABS: Glucose Point of Care 179 mg/dL (70-110)
[2023-10-19] MEDS: enoxaparin 40 mg/0.4 mL Syringe SUBCUT (22:32)
[2023-10-20] VITALS (7 sets, daily range): BP systolic 122–166; BP diastolic 61–78; PULSE 52–68; RESP 15–18; TEMP 36.4–36.7; O2SAT 93–97
[2023-10-20] MEDS: metroNIDAZOLE IV 500 MG/100 ML PREMIX 100 MG IV ×3 (05:20→21:48)
[2023-10-20 05:45] LABS: Basophils % 0.8 %; Eosinophils # 0.3 10^3/uL (0.0-0.8); Eosinophils % 6.9 %; Hematocrit 37.6 % (37-53); Lymphocytes # 0.9 10^3/uL (0.8-4.8); Lymphocytes % 21.9 %; Mean Corpuscular HGB Conc 31.4 g/dL (30-55); Mean Corpuscular Hemoglobin 28.1 pg (27-33); Mean Corpuscular Volume 89.5 fl (82-101); Mean Platelet Volume 11.1 fL (7.4-10.4); Monocytes # 0.5 10^3/uL (0.2-0.9); Neutrophils # 2.25 10^3/uL (1.8-7.7); Neutrophils % 57.1 %; Nucleated Red Blood Cells % 0 %; Platelet Count 131 10^3/cmm (157-399); White Blood Count 3.93 10^3/uL (3.29-11.43)
[2023-10-20 05:59] LABS: Anion Gap 11.8 (5-19); Blood Urea Nitrogen 13 mg/dL (8-23); Calcium 8.3 mg/dL (8.5-10.5); Carbon Dioxide 27 mmol/L (22-29); Chloride 107 mmol/L (98-107); Creatinine Clr Calc Pharmacy 73.8387; Glomerular Filtration Rate 59.9 mL/min (90-130); Glucose 133 mg/dL (65-115); Osmolality Calculated 296 mOsm/kg (285-295); Potassium 3.8 mmol/L (3.5-5.1); Sodium 142 mmol/L (136-145)
[2023-10-20 06:23] LABS: Glucose Point of Care 128 mg/dL (70-110)
[2023-10-20] MEDS: topiramate 25 mg Tablet 50 MG PO ×2 (09:26→17:15)
[2023-10-20] MEDS: gabapentin 400 mg Capsule PO ×3 (09:26→20:43)
[2023-10-20] MEDS: clopidogrel 75 mg Tablet PO (09:26)
[2023-10-20] MEDS: aspirin 81 mg EC Tablet PO (09:26)
[2023-10-20] MEDS: sucralfate 1 gm Tablet PO ×2 (09:26→20:43)
[2023-10-20] MEDS: metoprolol succinate ER (24 HR) 25 mg Tablet 12.5 MG PO (09:26)
[2023-10-20] MEDS: pantoprazole 40 mg SDV IVP ×2 (09:27→20:43)
[2023-10-20] MEDS: ciprofloxacin 400 MG/200 ML PREMIX 200 MG IV ×2 (09:27→20:44)
--- NOTE | 2023-10-20 13:53 | PM.PN ---
Subjective Subjective: Patient was seen this morning, currently denies any abdominal pain, no nausea, no vomiting, no fevers, no chills, he tells me that his strength of his left leg, is significantly getting better, he was able to ambulate with the help of nursing staff last night Vitals/I&O/Wt Last Vital Signs Temp 97.7 F 10/20/23 11:39 Pulse 54 L 10/20/23 11:39 Resp 15 10/20/23 04:00 BP 134/72 10/20/23 11:39 Pulse Ox 97 10/20/23 11:39 O2 Del Method Room Air 10/20/23 11:39 10/19/23 10/20/23 10/20/23 22:59 06:59 14:59 Intake Total 200 / 1400 746 / 2146 780 / 780 Output Total 700 / 1200 600 / 1800 400 / 400 Balance -500 / 200 146 / 346 380 / 380 Weight last 48 hrs Weight 114.895 kg Weight 114.351 kg Physical Exam Const: COMMON NORMALS: no acute distress and patient oriented x3 Resp: COMMON NORMALS: normal respiratory effort, No retractions, No use of accessory muscles and clear to auscultation bilaterally AUSCULTATION: clear to auscultation bilaterally Cardio: COMMON NORMALS: regular rate, regular rhythm, S1 normal heart sound present and S2 normal heart sound present RATE: regular rate RHYTHM: regular rhythm HEART SOUNDS: S1 normal heart sound present and S2 normal heart sound present GI: COMMON NORMALS: Normal to inspection, nondistended, normoactive bowel sounds present and non-tender Extremity: COMMON NORMALS: no pedal edema Neuro: COMMON NORMALS: patient oriented x3 Psych: COMMON NORMALS: mental status grossly normal Data 10/20/23 04:56 10/20/23 04:56 A&P Assessment and plan (1) Stroke: (2) 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 transplanted heart: [place] heart Associated angina: angina presence unspecified Qualified Code(s): I25.10 - Atherosclerotic heart disease of [place] coronary artery without angina pectoris (4) Systolic CHF with reduced left ventricular function, NYHA class 2: (5) Hypertension: Qualifiers: Hypertension type: primary hypertension Qualified Code(s): I10 - Essential (primary) hypertension Plan Acute CVA ? Status post tPA -On examination, flaccid paralysis left upper left lower extremity, slight left facial droop at times word finding difficulty, pupils equal round reactive to light, has paresthesias left upper and left lower extremities, CTA - CT/CT angio headneck* [id number] IMPRESSION: 1. No evidence of large vessel occlusion or acute thrombosis in the head. IMPRESSION: 1. No evidence of acute thrombosis in the neck. 2. Focal high-grade stenosis of the proximal right vertebral artery V2 segment. 3. Moderate approximately 75% stenosis of the distal left common carotid artery. ? Repeat head CT within normal limits Plan ? Off tPA precautions ? Monitor blood pressure, treat if systolic greater than 185 or diastolic greater than 110 ? Monitor for changes in mentation if so we will do a repeat head CT stat ? As he had complaints of bloody stools, nothing currently, monitor hemoglobin closely, hemoglobin stable -Concern for bloody stools, guaiac stool negative, monitor hemodynamics closely, monitor hemoglobin closely. Has a history of gastritis, gastric ulcers, - Protonix 40 IV twice daily ? On aspirin 81 mg daily -resume home Plavix ? As the strength is improving, advance diet as tolerated, speech therapy eval NIH stroke scale ? CT scan on admission showed findings concerning for colitis, on Cipro and Flagyl ? Persistent abdominal pain, repeat CT scan no acute findings, monitor ? PT OT ? Neurochecks ? Aspiration precautions ? IV fluids stopped ? Monitor mentation closely ? Full code ? SCDs for DVT prophylaxis, start Lovenox Plan for today, continue home medications, IV fluids, continue IV antibiotics, monitor abdominal pain Attestations Medical Necessity Statement*: Patient requires hospitalization for acute CVA Diagnoses Stroke I63.9 tPA adm status 24 hr RN ORTHOPAEDICS Z92.82 Coronary artery disease involving [place] heart, angina presence unspecified, unspecified vessel or lesion type I25.10 Coronary Disease-Associated Artery/Lesion type: unspecified vessel or lesion type [place] vs. transplanted heart: [place] heart Associated angina: angina presence unspecified Systolic CHF with reduced left ventricular function, NYHA class 2 I50.20 Primary hypertension I10 Hypertension type: primary hypertension
[2023-10-20] MEDS: atorvastatin 40 mg Tablet 80 MG PO (17:15)
[2023-10-20 20:37] LABS: Glucose Point of Care 249 mg/dL (70-110)
[2023-10-20] MEDS: enoxaparin 40 mg/0.4 mL Syringe SUBCUT (22:36)
[2023-10-21] VITALS (8 sets, daily range): BP systolic 117–154; BP diastolic 55–79; PULSE 55–70; RESP 17–20; TEMP 36.3–36.7; O2SAT 91–100
[2023-10-21 04:03] LABS: Basophils % 0.5 %; Eosinophils # 0.3 10^3/uL (0.0-0.8); Eosinophils % 6.8 %; Hematocrit 37.9 % (37-53); Lymphocytes # 0.9 10^3/uL (0.8-4.8); Lymphocytes % 21.7 %; Mean Corpuscular HGB Conc 30.6 g/dL (30-55); Mean Corpuscular Hemoglobin 27.4 pg (27-33); Mean Corpuscular Volume 89.4 fl (82-101); Mean Platelet Volume 11.3 fL (7.4-10.4); Monocytes # 0.6 10^3/uL (0.2-0.9); Monocytes % 14.6 %; Neutrophils # 2.36 10^3/uL (1.8-7.7); Neutrophils % 55.7 %; Nucleated Red Blood Cells % 0 %; Platelet Count 110 10^3/cmm (157-399); Red Blood Count 4.24 10^6/uL (3.85-5.65); Red Cell Distribution Width 13.1 % (12.1-15.1); White Blood Count 4.24 10^3/uL (3.29-11.43)
[2023-10-21 04:35] LABS: Anion Gap 11.3 (5-19); Blood Urea Nitrogen 12 mg/dL (8-23); Calcium 8.5 mg/dL (8.5-10.5); Carbon Dioxide 25 mmol/L (22-29); Chloride 109 mmol/L (98-107); Glomerular Filtration Rate 54.6 mL/min (90-130); Glucose 206 mg/dL (65-115); NT Pro B Type Natriuretic Pept 1233 pg/mL (0-125); Osmolality Calculated 298 mOsm/kg (285-295); Potassium 4.3 mmol/L (3.5-5.1); Sodium 141 mmol/L (136-145)
[2023-10-21] MEDS: metroNIDAZOLE IV 500 MG/100 ML PREMIX 100 MG IV (05:12)
--- NOTE | 2023-10-21 05:22 | XRR_ITS ---
PROCEDURE INFORMATION: Exam: XR Chest Exam date and time: 10/21/2023 6:16 AM Age: 72 years old Clinical indication: Prior surgery; Surgery date: 6+ months; Surgery type: Open heart; Patient HX: Coarse lung sound with wheezing; Additional info: R/O aspiration pnu TECHNIQUE: Imaging protocol: Radiologic exam of the chest. Views: 1 view. COMPARISON: CR XR chest 1V portable [id number] 07/25/2023 4:41 PM FINDINGS: Lungs: See Heart/Mediastinum finding. Pleural spaces: Unremarkable. No pleural effusion. No pneumothorax. Heart/Mediastinum: The cardiac silhouette is at the upper limits of normal. There are increased interstitial opacities seen in the left mid and lower hemithorax, findings that may represent an interstitial pneumonitis. Mild asymmetric pulmonary edema could have this appearance as well. Bones/joints: Unremarkable. XR/XR chest 1V portable [id number] IMPRESSION: Interstitial opacities in the left lower hemithorax may represent interstitial pneumonitis although asymmetric pulmonary edema could have this appearance as well.
[2023-10-21 06:06] LABS: Glucose Point of Care 210 mg/dL (70-110)
[2023-10-21] MEDS: pantoprazole 40 mg SDV IVP (09:42)
[2023-10-21] MEDS: metoprolol succinate ER (24 HR) 25 mg Tablet 12.5 MG PO (09:43)
[2023-10-21] MEDS: gabapentin 400 mg Capsule PO ×2 (09:43→14:55)
[2023-10-21] MEDS: sucralfate 1 gm Tablet PO (09:43)
[2023-10-21] MEDS: clopidogrel 75 mg Tablet PO (09:43)
[2023-10-21] MEDS: aspirin 81 mg EC Tablet PO (09:43)
[2023-10-21] MEDS: topiramate 25 mg Tablet 50 MG PO (09:43)
[2023-10-21] MEDS: insulin lispro 100 unit/1 mL SUBCUT ×2 (09:47→11:56)
[2023-10-21] MEDS: FUROsemide 10 mg/mL SDV 2mL 20 MG IVP (09:48)
--- NOTE | 2023-10-21 09:51 | FL_ITS ---
WS: [id number] Modified barium swallow, 10/21/2023 Clinical Data: Oral dysphagia Comparison: None. Fluoroscopy time: 2min [id number] # of spot films: 1 Findings: The patient had difficulty with oral preparation. There was premature spillage with food to the wyatt cula and to the piriform sinuses with liquids. The double swallows did partially clear the residue. T here was aspiration with thin liquids and minimal cough reflex. The patient performed a chin tuck whi ch promoted propulsion of food and liquids. The patient swallowed the oral tablet and it moved quickl y from the oropharynx, through the hypopharynx and esophagus into the stomach. FL/FL barium swallow modifd [id number] Impression: 1. Difficulty with oral preparation and premature spillage to the vallecula wit h food into the piriform sinuses with liquids. 2. Aspiration with thin liquids minimal cough reflex.
[2023-10-21] MEDS: ciprofloxacin 400 MG/200 ML PREMIX 200 MG IV (11:56)
[2023-10-21] MEDS: piperacillin-tazobactam 3.375 GM in sodium chloride 0.9% (plus) 50 ML IV (13:05)
--- NOTE | 2023-10-21 14:17 | P.DS_ITS ---
Discharge Providers Date of Admission: 10/17/23 18:11 Date of Discharge: October 21, 2023 Attending Provider at Admission: Ryland Webster MD Attending Provider at Discharge: Ryland Webster MD Primary Care Provider: Portia Lawrence MD Diagnoses at Discharge Discharge Diagnosis (1) Stroke: Status: Acute (2) tPA adm status 24 hr [employer]: Status: Acute (3) CAD (coronary artery disease): Status: Acute Qualifiers: Associated angina: angina presence unspecified Coronary Disease- Associated Artery/Lesion type: unspecified vessel or lesion type [place] vs. transplanted heart: [place] heart Qualified Code(s): I25.10 - Atherosclerotic heart disease of [place] coronary artery without angina pectoris (4) Systolic CHF with reduced left ventricular function, NYHA class 2: Status: Acute (5) Hypertension: Status: Acute Qualifiers: Hypertension type: primary hypertension Qualified Code(s): I10 - Essential (primary) hypertension Reason for Visit Reason for Visit: stroke alert Hospital Course Hospital Course Junior Andersen is a 72 year old male with a past medical history of CAD status post stenting, CABG, history of upper GI bleed found to have mild gastritis, healing ulcers, currently on Plavix, history of bowel obstruction, type 2 diabetes mellitus, hypertension, current smoker, CHF, who presents [facility] due to left-sided weakness, diarrhea. Currently patient is alert to person, to place, not to time he can follow commands, can answer questions but at times becomes dazed, history taking was helped by patient's at bedside. According to patient and , he has been dealing with diarrhea, and abdominal pain for the last few days, no recent antibiotic use, he was given hydrocodone by his home health care nurse, stepped outside, upon reexamination by , patient displayed left-sided weakness, left-sided flaccid paralysis, left facial droop, so immediately 911 was called Was and stroke alert was activated, NIH stroke scale on admission was 11, initial head CT within normal limits, ER provider spoke to Dr. Matta at [facility], who recommended tenecteplase, as there was concerns for bloody stools by patient, Hemoccult stool was obtained, which was guaiac negative, after discussing the risk and benefits with patient and , family agreed to proceed with tenecteplase, patient was given tenecteplase, CTA head and neck no evidence of large vessel occlusion, but was found to have focal high-grade stenosis in the proximal right vertebral artery V2 segment, moderate approximately 75% stenosis of the distal left common artery carotid, currently he is alert to person, to place, not to time is a mild left facial droop, slight slurring of his words, continues to have left-sided flaccid paralysis this is about 1 hour status post tPA, continues to have left-sided flaccid paralysis, NIH stroke scale is about 10-11, is at bedside, hemodynamically stable, no bloody or black stools, no hemoptysis does complain of abdominal pain, on room air Acute CVA ? Status post tPA -On examination, flaccid paralysis left upper left lower extremity, slight left facial droop at times word finding difficulty, pupils equal round reactive to light, has paresthesias left upper and left lower extremities, difficulty swallowing CTA - CT/CT angio headneck* [id number]/31512 IMPRESSION: 1. No evidence of large vessel occlusion or acute thrombosis in the head. IMPRESSION: 1. No evidence of acute thrombosis in the neck. 2. Focal high-grade stenosis of the proximal right vertebral artery V2 segment. 3. Moderate approximately 75% stenosis of the distal left common carotid artery. -Patient was admitted to [facility] for acute CVA status post tPA, with left sided hemiplegia, was monitored in the ICU for 24 hours, repeat head CT no acute bleed, managed on aspirin, statin, continue home Plavix, due to concerns for aspiration he was kept n.p.o. until speech therapy saw patient, even then, he was kept on strict dysphagia level 4 diet, aspiration precautions, and his diet was slowly advanced. In terms of patient's residual neurologic deficits, his left upper and left lower extremity weakness have significantly improved so much so that now he can ambulate, with a walker, he can ambulate on his own, strength is significantly improved I would say about 4/5 compared to the right, no facial droop, no slurring of his words, no visual deficits. I have recommended patient to go to halfway facility for rehab however he adamantly declines, wants to go home, discharged home, with home PT instructions. In terms of patient's aspiration, after 4 days, he continued to have episodes of coughing, throat clearing, so modified barium swallow was ordered FL/FL barium swallow modifd [id number] Impression: 1. Difficulty with oral preparation and premature spillage to the vallecula with food into the piriform sinuses with liquids. 2. Aspiration with thin liquids minimal cough reflex. -I had a detailed discussion with him about his risk of aspiration pneumonia, aspiration pneumonitis, morbidity mortality associated with aspiration with thin liquids -The stroke is likely affected his swallowing, but his swallowing function has significantly improved even here in the hospital, ? But he is going to have to adhere to dysphagia level 6 diet, mildly thickened liquids for some time, will have outpatient speech therapy Addition that here in the hospital he had episodes of aspiration on the day of discharge 10/21/2023, prompting me to order the modified barium swallow, his respiratory status is improving, but I am worried that he might develop an aspiration pneumonia ? I have discharged him on Augmentin, with strict aspiration precautions, dy sphagia level 6 diet with mildly thickened liquids, will work with outpatient speech therapy ? If he develops any fevers, chills, worsening cough, shortness of breath he should immediately go to the emergency room ? For his stroke, I discharged him on aspirin, continue his home Plavix, statin with close follow-up with neurology as outpatient ? Given his history of GI bleeds in the past, I am going to discharge him on Protonix, Carafate, if he develops any bloody or black stools to immediately go to the emergency room Have your primary care provider recheck his hemoglobin in 48 hours ? Continue to monitor blood sugars closely ? If any recurrent strokelike symptoms to immediately go to the emergency room ? There was concerns for colitis during his hospitalization received IV antibiotics as inpatient Physical Exam Narrative: Left upper left lower extremity weakness significantly improved, still has some weakness on the left upper left lower extremities, 4 out of 5 compared to 5 out of 5 on the right, able to ambulate with a walker no facial droop no slurring words no word finding difficulties, no visual deficits Const: COMMON NORMALS: no acute distress and patient oriented x3 Resp: COMMON NORMALS: normal respiratory effort, No retractions, No use of accessory muscles and clear to auscultation bilaterally AUSCULTATION: clear to auscultation bilaterally Cardio: COMMON NORMALS: regular rate, regular rhythm, S1 normal heart sound present and S2 normal heart sound present RATE: regular rate RHYTHM: regular rhythm HEART SOUNDS: S1 normal heart sound present and S2 normal heart sound present GI: COMMON NORMALS: Normal to inspection, nondistended, normoactive bowel sounds present, Soft to palpation and non-tender PALPATION: Yes Soft to palpation Extremity: COMMON NORMALS: no pedal edema Neuro: COMMON NORMALS: patient oriented x3 Psych: COMMON NORMALS: mental status grossly normal Discharge Data Studies Completed and Pending Completed Studies During Hospitalization Category Date Time Status CT abdomen pelvis w con* [id number] Stat Cat Scan 10/17/23 15:[address] abdomen pelvis wo con [id number] Stat Cat Scan 10/19/23 10:[address] head thrombolytic [id number] Stat Cat Scan 10/17/23 15:[address] head wo con* [id number] Stat Cat Scan 10/18/23 15:00 Completed CTA head neck [CT angio headneck* [id number]] Stat Cat Scan 10/17/23 16:07 Completed Modified barium swallow [FL barium swallow modifd [id number] Exams 10/21/23 09:51 Completed ] Stat XR chest 1V portable [id number] Stat Exams 10/21/23 05:22 Completed Pending at discharge Category Date Time Status Basic Metabolic Panel AM LABS Lab 10/22/23 04:00 Ordered Basic Metabolic Panel AM LABS Lab 10/23/23 04:00 Ordered C.Diff PCR (Lab) Routine Lab 10/17/23 20:26 Ordered Complete Blood Count w/Auto AM LABS Lab 10/22/23 04:00 Ordered Complete Blood Count w/Auto AM LABS Lab 10/23/23 04:00 Ordered Immunochemical Fecal OCB Routine Lab 10/17/23 20:26 Ordered Lactoferrin Routine Lab 10/17/23 20:26 Ordered NT Pro B Type Natriuretic Pept QAM Lab 10/22/23 06:00 Ordered NT Pro B Type Natriuretic Pept QAM Lab 10/23/23 06:00 Ordered OVA and Parasites, Conc and PE Routine Lab 10/17/23 20:26 Ordered Salmonella / Shigella / Campy Routine Lab 10/17/23 20:26 Ordered Radiology Impressions Head/Neck CTA 10/17/23 16:07 IMPRESSION: 1. No evidence of large vessel occlusion or acute thrombosis in the head. IMPRESSION: 1. No evidence of acute thrombosis in the neck. 2. Focal high-grade stenosis of the proximal right vertebral artery V2 segment. 3. Moderate approximately 75% stenosis of the distal left common carotid artery. REFERENCES: NASCET CRITERIA. The degree of stenosis in the cervical segment of the internal carotid artery is based on NASCET criteria. Normal is no stenosis. Mild is less than 50% stenosis. Moderate is 50-69% stenosis. Severe is 70% to 99% stenosis. Total occlusion is no detectable patent lumen. Head CT 10/18/23 15:00 IMPRESSION: No acute intracranial abnormality. Abdomen/Pelvis CT 10/19/23 10:21 IMPRESSION: Improvement of previously seen right colonic wall thickening and edema. Minimal gastric mucosal thickening, suggesting gastritis. No signs of bowel obstruction. Chest X-Ray 10/21/23 05:22 IMPRESSION: Interstitial opacities in the left lower hemithorax may represent interstitial pneumonitis although asymmetric pulmonary edema could have this appearance as well. Modified Barium Swallow 10/21/23 09:51 Impression: 1. Difficulty with oral preparation and premature spillage to the vallecula with food into the piriform sinuses with liquids. 2. Aspiration with thin liquids minimal cough reflex. Laboratory Results WBC 4.24 10^3/uL (3.29-11.43) 10/21/23 03:03 Corrected WBC Cancelled 10/18/23 09:59 RBC 4.24 10^6/uL (3.85-5.65) 10/21/23 03:03 Hgb 11.60 g/dL (11.27-16.99) 10/21/23 03:03 Hct 37.9 % (37-53) 10/21/23 03:03 MCV 89.4 fl (82-101) 10/21/23 03:03 MCH 27.4 pg (27-33) 10/21/23 03:03 MCHC 30.6 g/dL (30-55) 10/21/23 03:03 RDW 13.1 % (12.1-15.1) 10/21/23 03:03 Plt Count 110 10^3/cmm (157-399) L 10/21/23 03:03 MPV 11.3 fL (7.4-10.4) H 10/21/23 03:03 Gran % Cancelled 10/18/23 09:59 Neut % (Auto) 55.7 % 10/21/23 03:03 Lymph % (Auto) 21.7 % 10/21/23 03:03 Bureau % (Auto) 14.6 % 10/21/23 03:03 Eos % (Auto) 6.8 % 10/21/23 03:03 Baso % (Auto) 0.5 % 10/21/23 03:03 Neut # (Auto) 2.36 10^3/uL (1.8-7.7) 10/21/23 03:03 Lymph # (Auto) 0.9 10^3/uL (0.8-4.8) 10/21/23 03:03 Bureau # (Auto) 0.6 10^3/uL (0.2-0.9) 10/21/23 03:03 Eos # (Auto) 0.3 10^3/uL (0.0-0.8) 10/21/23 03:03 Baso # (Auto) 0.0 10^3/uL (0.0-0.1) 10/21/23 03:03 Absolute Gran (auto) Cancelled 10/18/23 09:59 Nucleated RBC % (auto) 0 % 10/21/23 03:03 Nucleated RBCs # 0.0 /100WBC 10/21/23 03:03 PT 14.10 SECONDS (12.1-14.9) 10/18/23 16:14 INR 1.06 (0.8-1.2) 10/18/23 16:14 APTT 34.1 SECONDS (23.9-36.7) 10/17/23 15:36 Sodium 141 mmol/L (136-145) 10/21/23 03:03 Potassium 4.3 mmol/L (3.5-5.1) 10/21/23 03:03 Chloride 109 mmol/L (98-107) H 10/21/23 03:03 Carbon Dioxide 25 mmol/L (22-29) 10/21/23 03:03 Anion Gap 11.3 (5-19) 10/21/23 03:03 BUN 12 mg/dL (8-23) 10/21/23 03:03 Creatinine 1.3 mg/dL (0.7-1.2) H 10/21/23 03:03 GFR Calculation 54.6 mL/min (90-130) L 10/21/23 03:03 Glucose 206 mg/dL (65-115) H 10/21/23 03:03 POC Glucose 210 mg/dL (70-110) H 10/21/23 06:03 Estimat Average Glucose 180 10/18/23 16:14 Hemoglobin A1c 7.9 % (4.0-6.0) H 10/18/23 16:14 Calculated Osmolality 298 mOsm/kg (285-295) H 10/21/23 03:03 Calcium 8.5 mg/dL (8.5-10.5) 10/21/23 03:03 Total Bilirubin 0.5 mg/dL (0.15-1.2) 10/17/23 15:36 AST 11 U/L (0-40) 10/17/23 15:36 ALT 7 U/L (0-41) 10/17/23 15:36 Alkaline Phosphatase 97 U/L (40-130) 10/17/23 15:36 NT-Pro-B Natriuret Pep 1233 pg/mL (0-125) H 10/21/23 03:03 Total Protein 7.1 g/dL (6.6-8.7) 10/17/23 15:36 Albumin 3.8 g/dL (3.5-5.2) 10/17/23 15:36 Globulin 3.3 g/dL (1.3-4.6) 10/17/23 15:36 Triglycerides 129 mg/dL (0-150) 10/18/23 16:14 Cholesterol 143 mg/dL (0-200) 10/18/23 16:14 LDL Cholesterol, Calc 85 mg/dL (50-129) 10/18/23 16:14 HDL Cholesterol 32 mg/dL (60-100) L 10/18/23 16:14 LDL/HDL Ratio 2.66 RATIO (0.00-3.22) 10/18/23 16:14 Cholesterol/HDL Ratio 4.47 mg/dL (1.0-5.00) 10/18/23 16:14 TSH 1.60 uIU/mL (0.27-4.20) 10/18/23 16:14 Urine Color Dark yellow (Yellow) A 10/17/23 04:46 Urine Appearance Clear (CLEAR) 10/17/23 04:46 Urine pH 5 (5-7) 10/17/23 04:46 Ur Specific [place] 1.010 (1.005-1.030) 10/17/23 04:46 Urine Protein Neg (Negative) 10/17/23 04:46 Urine Glucose (UA) Norm (Normal) 10/17/23 04:46 Urine Ketones 1+ (Negative) H 10/17/23 04:46 Urine Blood Neg (Negative) 10/17/23 04:46 Urine Nitrate Negative (Negative) 10/17/23 04:46 Urine Bilirubin Neg (Negative) 10/17/23 04:46 Urine Urobilinogen Neg mg/dL (Negative) 10/17/23 04:46 Ur Leukocyte Esterase Negative (Negative) 10/17/23 04:46 Urine Opiates Screen Positive ng/mL (Negative) H 10/17/23 04:46 Ur Barbiturates Screen Negative ng/mL (Negative) 10/17/23 04:46 Ur Phencyclidine Scrn Negative ng/mL (Negative) 10/17/23 04:46 Ur Amphetamines Screen Negative ng/mL (Negative) 10/17/23 04:46 U Benzodiazepines Scrn Negative ng/mL (Negative) 10/17/23 04:46 Urine Cocaine Screen Negative ng/mL (Negative) 10/17/23 04:46 U Marijuana (THC) Screen Negative ng/mL (Negative) 10/17/23 04:46 Vitals Last Vital Signs Temp 97.4 F L 10/21/23 08:00 Pulse 64 10/21/23 08:00 Resp 19 H 10/21/23 08:00 BP 154/72 10/21/23 08:00 Pulse Ox 95 10/21/23 13:32 O2 Del Method Room Air 10/21/23 13:32 Discharge Plan Discharge Patient Disposition: Home Condition: Stable Prescriptions: New aspirin 81 mg Tablet,Delayed Release (Dr/Ec) 81 mg PO DAILY 30 Days Qty: 30 0RF Thick and Easy Powder In Packet 1 ea PO TIDWMEAL Qty: 100 0RF Rx Instructions: Mild thickened liquids whenever you drink sucralfate [Carafate] 1 gram tablet 1 g PO BID 28 Days Qty: 56 0RF amoxicillin-pot clavulanate 875-125 mg tablet 1 tab PO BID 7 Days Qty: 14 0RF pantoprazole [Protonix] 40 mg tablet,delayed release (DR/EC) 40 mg PO BID 30 Days Qty: 60 0RF Continued topiramate [Topamax] 50 mg tablet 50 mg PO BID Qty: 60 6RF nitroglycerin 0.4 mg tablet, sublingual 0.4 mg sublingual Q5M PRN (Reason: chest pain) Qty: 30 6RF Rx Instructions: do not exceed 3 doses per episode gabapentin 400 mg capsule 400 mg PO TID glucose 4 gram Tablet,Chewable 4 - 16 g PO Q15M PRN (Reason: Hypoglycemia) Rx Instructions: MAY REPEAT IF HYPOGLYCEMIA CONTINUES 15 MINUTES POST 1ST DOSE. cholecalciferol (vitamin D3) [Vitamin D3] 25 mcg (1,000 unit) Tablet 25 mcg PO DAILY melatonin 5 mg Tablet 5 mg PO BEDTIME omega 7-lmd-gtj-fish oil [Fish Oil] 1,000 mg (120 mg-180 mg) Capsule 1 cap PO BID potassium chloride 20 mEq Tablet Extended Release 10 meq PO QAM folic acid 400 mcg tablet 400 mcg PO DAILY rosuvastatin 40 mg tablet 40 mg PO QPM Combivent Respimat 20-100 mcg/actuation Mist 1 puff INHALATION QID furosemide 20 mg tablet 20 mg PO QAM ascorbic acid (vitamin C) [Vitamin C] 500 mg Tablet 500 mg PO BID metoprolol succinate [Toprol XL] 25 mg tablet extended release 24 hr 12.5 mg PO DAILY Qty: 30 0RF Hold Instructions: hypotension sucralfate 1 gram tablet 1 g PO DAILY clopidogrel 75 mg tablet 75 mg PO DAILY Colace 100 mg Capsule 100 mg PO BID Miralax 17 gram/dose Powder See Rx Instructions .ROUTE .COMPLEX Rx Instructions: TAKE 34G (2 CAPFULS) MIXED IN 8 OUNCES LIQUID AND DRINK ENTIRE LIQUID DAILY TO PREVENT CONSTIPATION insulin regular human 100 unit/mL (3 mL) Insulin Pen See Rx Instructions .ROUTE .COMPLEX Qty: 15 0RF Rx Instructions: inject, subcut, tid after meals, based on sliding scale provided Changed insulin glargine 100 unit/mL (3 mL) Insulin Pen 5 unit SUBCUT DAILY 30 Days Qty: 15 0RF Discontinued pantoprazole [Protonix] 40 mg tablet,delayed release (DR/EC) 40 mg PO QAM Discharge Orders: Discharge Order (Routine); Ordered 10/21/23 Ordered By: Ryland Webster Referrals: Linda Last MD [Physician] - 4-7 days (We have notified your physician's clinic of the need for a follow-up appointment to be scheduled. If you have not heard from them within the next 2 business days, please call them directly. office will calll with appointment) Portia Lawrence MD [Primary Care Provider] - Discharge Diet: As Directed and Cardiac Discharge Activity: Resume usual activity Patient Instructions: Aspiration, Aspiration Pneumonia (DC), Altered Mental Status (ED), Dysphagia (ED), Opioid Safety, Pain Management Activity Restrictions/Additional Instructions: -Please monitor your blood sugars closely -Monitor your blood sugars 3 times daily as after meals -Please record your blood sugars, and a blood sugar log -For your NovoLog -Please inject blood sugar after meals based on sliding scale provided -Do not inject insulin if you do not eat as hypoglycemia kills -This is a NovoLog sliding scale -Insulin sliding ?fingerstick? Insulin ?141-180?0 units/sq 181-220?2 units/sq ?221-260?4 units/sq ?261-300 6 units/sq ?301-350?8 units/sq ?351-400 10 units/sq ?401-450?12 units/sq >450? 14units/sq -If your blood sugar is greater than 500 go to the emergency room -If your blood sugar is less than 60 or at anytime you feel lightheaded or dizzy or diaphoretic or have chest palpitations check your blood sugar, and eat a hard candy or drink orange juice and go immediately to the emergency room -Remember hypoglycemia kills, so if his blood sugar is less than 60 we have to increase it by taking in a sugary meal such as a hard candy or orange juice and go to the emergency room -If you have any questions please call us where here to help -If you have any recurrent strokelike symptoms please call 911 ? Please adhere to dysphagia level 6 diet, mild mildly thickened liquids, strict aspiration precautions -Make sure you adhere to mildly thickened liquid diet, due to your risk of aspiration with thin liquids -Work with speech therapy at home -,follow-up with neurology as outpatient ? Continue aspirin, statin, Plavix -You have a history of GI bleeds, I am discharging on aspirin and Plavix, please take Protonix and Carafate, so it can protect your stomach ? However if you develop bloody or black stools please immediately go to the emergency room ? Please have your primary care provider recheck your CBC in 48 hours, monitoring your hemoglobin Discharge Attestations Time Spent in Discharge Care*: greater than 30 min Time Spent in Smoking Cessation: 3 to 10 minutes Stop smoking Quality Metrics Clinical Quality Measures [ Cerebrovascular Accident { Contraindication to Antithrombotic: None; antithrombotic prescribed; Contraindication to Anticoagulation: Overlap treatment not indicated; Contraindication to Statin: None; Statin prescribed;}. No reported AMI, CVA or VTE this stay] Coding Level of Care Code 02472 Total time (in minutes) for Discharge: 45 Diagnoses Stroke I63.9 tPA adm status 24 hr [employer] [facility] Z92.82 Coronary artery disease involving [place] heart, angina presence unspecified, unspecified vessel or lesion type I25.10 Associated angina: angina presence unspecified Coronary Disease-Associated Artery/Lesion type: unspecified vessel or lesion type [place] vs. transplanted heart: [place] heart Systolic CHF with reduced left ventricular function, NYHA class 2 I50.20 Primary hypertension I10 Hypertension type: primary hypertension
--- NOTE | 2023-10-21 15:10 | PC.SOCIAL ---
IMM updated IMM initialed and dated, copy given to patient and placed in chart.
== END 2023-10-21 16:50 | disposition home or self-care (01) | DRG 65 ==
LOC: ER 17:33 → ICU 18:12 → MEDSURG 10-18 18:14
PROVIDERS: Family Medicine; Admitting Provider Family Medicine; Emergency Provider Emergency Medicine; PCP Family Medicine; Visit Provider Family Medicine
DX: I63.9 Cerebral infarction, unspecified (principal); G81.04 Flaccid hemiplegia affecting left nondominant side; I50.22 Chronic systolic (congestive) heart failure; R29.810 Facial weakness; R47.81 Slurred speech; F17.210 Nicotine dependence, cigarettes, uncomplicated; R29.711 NIHSS score 11; I25.10 Atherosclerotic heart disease of native coronary artery without angina pectoris; Z95.5 Presence of coronary angioplasty implant and graft; Z95.1 Presence of aortocoronary bypass graft; I11.0 Hypertensive heart disease with heart failure; Z79.02 Long term (current) use of antithrombotics/antiplatelets; Z79.4 Long term (current) use of insulin; E11.9 Type 2 diabetes mellitus without complications
CPT/HCPCS: 36415; 36416; 70450; 70496; 70498; 71045; 74176; 74177; 74230; 80048; 80053; 80061; 80306; 81003; 82962; 83036; 83880; 84443; 85025; 85610; 85730; 92526; 92610; 92611; 93005; 94664; 96372; 96374; 97110; 97116; 97161; 97165; 97530; 99285; C9113; J0744; J1650; J1815; J1940; J2270; J2543; J3101; J3490; J7030; J7042; J7799; Q9967

== ENCOUNTER 2023-12-20 12:15 | Emergency (ER) | payer OTHER, MEDICARE, SELFPAY ==
[2023-12-20 12:17] VITALS: BP 128/71; PULSE 71; RESP 16; TEMP 37.4; O2SAT 96; BMI 29.7
--- NOTE | 2023-12-20 12:22 | XR_ITS ---
WS: [id number] Examination: XR chest 1V portable [id number] Reason for Exam: Weakness Date: 12/20/2023 Comparison: 10/21/2023 Findings: The heart is enlarged. The mediastinum not widened. Sternal wires are in place. There is no pulmonary edema or effusion. Chronic changes are suspected in the bases. XR/XR chest 1V portable [id number] Impression: There is cardiomegaly without failure.
--- NOTE | 2023-12-20 12:43 | ECG_ITS ---
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 Measurements Intervals [place] Rate: 72 P: 113 IA: 140 QRS: 38 QRSD: 125 T: 187 QT: 379 QTc: 415 Interpretive Statements SINUS RHYTHM MODERATE INTRAVENTRICULAR CONDUCTION DELAY [105+ ms QRS DURATION, 80+ ms Q/S IN V1/V2, NO Q AND 60+ ms R IN I/aVL/V5/V6] ST DEVIATION AND MODERATE T-WAVE ABNORMALITY, CONSIDER LATERAL ISCHEMIA [-0.1+ mV T-WAVE IN I/aVL/V5/V6] Compared to ECG 10/17/2023 15:26:09 T-wave abnormality now present Possible ischemia now present Sinus arrhythmia no longer present Electronically Signed On 12-20-2023 17:04:22 CDT by Luisito Barajas M.D. [email or web address]
--- NOTE | 2023-12-20 13:19 | ED_ITS ---
HPI - COVID 2 General: Chief Complaint: COVID symptoms Stated Complaint: flu like Time Seen by Provider: 12/20/23 12:18 History of Present Illness: 73-year-old male with history of COPD, h ypertension, coronary artery disease status post CABG on Plavix who presents emergency room with weakness and fatigue and upper respiratory symptoms. He has been sick with a cough that is been dry for several days. Some bilateral inspiratory chest pain. Mild increased work of breathing. Some low-grade fevers. He has a temp of 99 for here today. The reason he came in today was because he felt generally weak. No altered mental status. No focal motor deficits. No abdominal pain. No nausea or vomiting. No diarrhea. COVID Results: 2 Nasal/Oral Coronavirus 2019 PCR Negative 12/28/19 08:49 Coronavirus (PCR) Negative (Negative) 12/20/23 14:17 Related Data Home Medications Medication Instructions Recorded Confirmed cholecalciferol (vitamin D3) 25 25 mcg PO DAILY 12/13/22 10/18/23 mcg (1,000 unit) tablet (Vitamin D3) gabapentin 400 mg capsule 400 mg PO TID 12/13/22 10/18/23 glucose 4 gram chewable tablet 4 - 16 g PO Q15M PRN Hypoglycemia 12/13/22 10/18/23 melatonin 5 mg tablet 5 mg PO BEDTIME 12/13/22 10/18/23 omega 0-zgm-rje-fish oil 1,000 mg 1 cap PO BID 12/13/22 10/18/23 (120 mg-180 mg) capsule (Fish Oil) potassium chloride 20 mEq 10 meq PO QAM 12/13/22 10/18/23 tablet,extended release folic acid 400 mcg tablet 400 mcg PO DAILY 04/19/23 10/18/23 furosemide 20 mg tablet 20 mg PO QAM 04/19/23 10/18/23 ipratropium 20 mcg-albuterol 100 1 puff inhalation QID 04/19/23 10/18/23 mcg/actuation mist for inhalation (Combivent Respimat) rosuvastatin 40 mg tablet 40 mg PO QPM 04/19/23 10/18/23 ascorbic acid (vitamin C) 500 mg 500 mg PO BID 06/09/23 10/18/23 tablet (Vitamin C) clopidogrel 75 mg tablet 75 mg PO DAILY 06/17/23 10/18/23 sucralfate 1 gram tablet 1 g PO DAILY 06/17/23 10/18/23 docusate sodium 100 mg capsule 100 mg PO BID 10/18/23 10/18/23 (Colace) polyethylene glycol 3350 17 See Rx Instructions .Route .COMPLEX 10/18/23 10/18/23 gram/dose oral powder (Miralax) Previous Rx's Medication Instructions Recorded topiramate 50 mg tablet (Topamax) 50 mg PO BID #60 tabs 07/07/19 nitroglycerin 0.4 mg sublingual 0.4 mg sublingual Q5M PRN chest 02/25/23 tablet pain #30 tabs metoprolol succinate 25 mg 12.5 mg (1/2 x 25 mg) PO DAILY #30 06/11/23 tablet,extended release 24 hr tabs (Toprol XL) insulin glargine 100 unit/mL (3 5 unit (0.05 mL) SUBCUT DAILY 30 10/21/23 mL) subcutaneous pen days #15 mL insulin regular human 100 unit/mL See Rx Instructions .Route 10/21/23 (3 mL) subcutaneous pen .COMPLEX #15 mL starch (thickening) (Thick and 1 ea PO TIDWMEAL #100 ea 10/21/23 Easy oral powder packet) azithromycin 250 mg tablet See Rx Instructions PO .COMPLEX #6 12/20/23 (Zithromax Z-Kody) tabs cephalexin 500 mg capsule 500 mg PO BID 5 days #10 caps 12/20/23 dexamethasone 6 mg tablet 6 mg PO DAILY 5 days #5 tabs 12/20/23 Allergies Allergy/AdvReac Type Severity Reaction Status Date / Time adhesive tape Allergy ALGY-Rash Verified 10/17/23 15:43 Review of Systems 2 Narrative: Constitutional symptoms: Negative except as documented in HPI. Skin symptoms: Negative except as documented in HPI. Eye symptoms: Negative except as documented in HPI. ENMT symptoms: Negative except as documented in HPI. Respiratory symptoms: Negative except as documented in HPI. Cardiovascular symptoms: Negative except as documented in HPI. Gastrointestinal symptoms: Negative except as documented in HPI. Genitourinary symptoms: Negative except as documented in HPI. Musculoskeletal symptoms: Negative except as documented in HPI. Neurologic symptoms: Negative except as documented in HPI. Psychiatric symptoms: Negative except as documented in HPI. Endocrine symptoms: Negative except as documented in HPI. [facility] ED 2 PFSH: Medical History Tobacco abuse NSTEMI (non-ST elevated myocardial infarction) Systolic CHF with reduced left ventricular function, NYHA class 2 Bilateral carotid artery stenosis Erectile dysfunction Urinary retention Cutaneous wart Current smoker JENAE on CPAP Acute cystitis without hematuria Phimosis BPH NOS w ur obs/LUTS COPD (chronic obstructive pulmonary disease) Hypertension Diabetes Complex partial epilepsy with generalization Myocardial infarct Chronic headache CAD (coronary artery disease) Balanitis Surgical History History of cardiac catheterization H/O heart artery stent S/P carotid endarterectomy H/O circumcision History of laparotomy History of appendectomy History of coronary artery bypass graft Family History Mother , at age 103 No problems noted. Father , at age 89 Congestive heart failure (CHF) Other CAD (coronary artery disease) Hypertension Mesothelioma Social History Smoking and tobacco/nicotine status: current every day tobacco/nicotine user cigarettes Packs smoked per day: 1.5 Years cigarettes smoked: 52 [ Other cigarette details: was 2ppd] Alcohol intake: never Substance/Drug Use: never Marital status: service: Yes Current occupational status: retired and disabled Do you think of yourself as: Straight/Heterosexual Physical Exam 2 Narrative: EXAM NARRATIVE: General: Alert, no acute distress. Skin: Warm, dry. Head: Normocephalic, atraumatic. Neck: Supple, trachea midline. Eye: Extraocular movements are intact. Ears, nose, mouth and throat: mucosa moist. Cardiovascular: Regular, Normal peripheral perfusion. Respiratory: Some mild scattered wheeze, respirations are non-labored, breath sounds are equal, Symmetrical chest wall expansion. Gastrointestinal: Soft, Nontender, Non distended Musculoskeletal: Normal ROM, no deformity. Neurological: Alert and oriented, No focal neurological deficit observed. Psychiatric: Cooperative, appropriate mood & affect. Course 2 Vital Signs: Vital signs: Vital Signs Temperature 99.4 F 12/20/23 12:17 Pulse Rate 71 12/20/23 12:17 Respiratory Rate 16 12/20/23 12:17 Blood Pressure 128/71 12/20/23 12:17 Pulse Oximetry 96 12/20/23 12:17 Oxygen Delivery Me thod Room Air 12/20/23 12:17 MDM - COVID Medical Decision Making Differential diagnosis for patient with shortness of breath includes but is not limited to and based on the above HPI, review of systems and physical exam: Pneumonia. Bronchitis. Asthma or COPD with acute exacerbation. Acute coronary syndrome / UT. Pulmonary embolism. Anxiety. Congestive heart failure. Viral infections including influenza and Covid-19. Atrial fibrillation. Anxiety. Pleural effusion. Pneumothorax. Workup: Lab work, chest X-ray and EKG ordered to evaluate, rule in and rule out above pathologies EKG: Time 1243. Rate 72. Normal sinus rhythm, nonspecific ST-T changes, no ectopy, normal NE & QRS intervals, This was reviewed and interpreted by myself the ER physician at 12:45 Chest x-ray: Stable cardiomegaly. Sternotomy wires in place. No acute process. No infiltrate. No pneumothorax. This was reviewed and interpreted by myself the ER physician. Lab Review: Laboratory results were reviewed and interpreted by myself the emergency room physician. Lab work is fairly unremarkable. No leukocytosis. BUN and creatinine are stable at 24 and 1.3. He does have some chronic kidney disease. Respiratory panel is negative I reviewed the patient's medical record. Reexamination: Patient remained stable. No increased work of breathing. No altered mental status. No focal motor deficits. Assessment and plan: COPD exacerbation Upper respiratory infection ?IV Solu-Medrol and IV Rocephin. - Discharged home - Discussed findings and plan with patient. Answered any questions. - All laboratory values were reviewed and interpreted personally by myself, the ER physician - All imaging was reviewed and interpreted personally by myself, the ER physician. - Evaluation and treatment of this problem were appropriate in the emergency setting Lab Data 12/20/23 14:00 12/20/23 14:00 Radiology Impressions Chest X-Ray 12/20/23 12:22 Impression: There is cardiomegaly without failure. Laboratory Results WBC 7.95 10^3/uL (3.29-11.43) 12/20/23 14:00 RBC 4.59 10^6/uL (3.85-5.65) 12/20/23 14:00 Hgb 12.70 g/dL (11.27-16.99) 12/20/23 14:00 Hct 40.8 % (37-53) 12/20/23 14:00 MCV 88.9 fl (82-101) 12/20/23 14:00 MCH 27.7 pg (27-33) 12/20/23 14:00 MCHC 31.1 g/dL (30-55) 12/20/23 14:00 RDW 14.4 % (12.1-15.1) 12/20/23 14:00 Plt Count 139 10^3/cmm (157-399) L 12/20/23 14:00 MPV 10.2 fL (7.4-10.4) 12/20/23 14:00 Neut % (Auto) 79.2 % 12/20/23 14:00 Lymph % (Auto) 6.8 % 12/20/23 14:00 [place] % (Auto) 11.7 % 12/20/23 14:00 Eos % (Auto) 1.5 % 12/20/23 14:00 Baso % (Auto) 0.4 % 12/20/23 14:00 Neut # (Auto) 6.30 10^3/uL (1.8-7.7) 12/20/23 14:00 Lymph # (Auto) 0.5 10^3/uL (0.8-4.8) L 12/20/23 14:00 [place] # (Auto) 0.9 10^3/uL (0.2-0.9) 12/20/23 14:00 Eos # (Auto) 0.1 10^3/uL (0.0-0.8) 12/20/23 14:00 Baso # (Auto) 0.0 10^3/uL (0.0-0.1) 12/20/23 14:00 Nucleated RBC % (auto) 0 % 12/20/23 14:00 Nucleated RBCs # 0.0 /100WBC 12/20/23 14:00 Sodium 139 mmol/L (136-145) 12/20/23 14:00 Potassium 4.5 mmol/L (3.5-5.1) 12/20/23 14:00 Chloride 107 mmol/L (98-107) 12/20/23 14:00 Carbon Dioxide 20 mmol/L (22-29) L 12/20/23 14:00 Anion Gap 16.5 (5-19) 12/20/23 14:00 BUN 24 mg/dL (8-23) H 12/20/23 14:00 Creatinine 1.3 mg/dL (0.7-1.2) H 12/20/23 14:00 GFR Calculation Not Reportable 12/20/23 14:00 Glucose 100 mg/dL (65-115) 12/20/23 14:00 Calculated Osmolality 292 mOsm/kg (285-295) 12/20/23 14:00 Lactic Acid 0.8 mmol/L (0.5-2.2) 12/20/23 14:00 Calcium 8.5 mg/dL (8.5-10.5) 12/20/23 14:00 Total Bilirubin 0.6 mg/dL (0.15-1.2) 12/20/23 14:00 AST 13 U/L (0-40) 12/20/23 14:00 ALT 9 U/L (0-41) 12/20/23 14:00 Alkaline Phosphatase 89 U/L (40-130) 12/20/23 14:00 Troponin T Baseline 21 ng/L (0-15) H 12/20/23 14:00 C-Reactive Protein 12.1 mg/L (0.0-4.9) H 12/20/23 14:00 NT-Pro-B Natriuret Pep 1446 pg/mL (0-125) H 12/20/23 14:00 Total Protein 7.0 g/dL (6.6-8.7) 12/20/23 14:00 Albumin 4.0 g/dL (3.5-5.2) 12/20/23 14:00 Globulin 3.0 g/dL (1.3-4.6) 12/20/23 14:00 Procalcitonin 0.19 ng/mL (0-0.5) 12/20/23 14:00 Coronavirus (PCR) Negative (Negative) 12/20/23 14:17 Coronavirus 229E (PCR) Cancelled 12/20/23 14:17 Influenza A (PCR) Negative (Negative) 12/20/23 14:17 Influenza Type B (PCR) Negative (Negative) 12/20/23 14:17 RSV (PCR) Negative (Negative) 12/20/23 14:17 SARS-CoV-2 (PCR) Cancelled 12/20/23 14:17 2 Nasal/Oral Coronavirus 2019 PCR Negative 12/28/19 08:49 Coronavirus (PCR) Negative (Negative) 12/20/23 14:17 All radiology interpretation(s) finalized by discharge Discharge Plan Discharge Patient Disposition: Home Clinical Impression: COPD with acute exacerbation, Acute upper respiratory infection Condition: Stable Prescriptions: New Zithromax Z-Kody 250 mg tablet See Rx Instructions .ROUTE .COMPLEX Qty: 6 0RF Rx Instructions: For 250 mg dose pack: take 500 mg today (day 1), then 250 mg for 4 days (days 2-5) dexamethasone 6 mg tablet 6 mg PO DAILY 5 Days Qty: 5 0RF cephalexin 500 mg capsule 500 mg PO BID 5 Days Qty: 10 0RF No Action topiramate [Topamax] 50 mg tablet 50 mg PO BID Qty: 60 6RF nitroglycerin 0.4 mg tablet, sublingual 0.4 mg sublingual Q5M PRN (Reason: chest pain) Qty: 30 6RF Rx Instructions: do not exceed 3 doses per episode gabapentin 400 mg capsule 400 mg PO TID glucose 4 gram Tablet,Chewable 4 - 16 g PO Q15M PRN (Reason: Hypoglycemia) Rx Instructions: MAY REPEAT IF HYPOGLYCEMIA CONTINUES 15 MINUTES POST 1ST DOSE. cholecalciferol (vitamin D3) [Vitamin D3] 25 mcg (1,000 unit) Tablet 25 mcg PO DAILY melatonin 5 mg Tablet 5 mg PO BEDTIME omega 0-ftt-hqy-fish oil [Fish Oil] 1,000 mg (120 mg-180 mg) Capsule 1 cap PO BID potassium chloride 20 mEq Tablet Extended Release 10 meq PO QAM folic acid 400 mcg tablet 400 mcg PO DAILY rosuvastatin 40 mg tablet 40 mg PO QPM Combivent Respimat 20-100 mcg/actuation Mist 1 puff INHALATION QID furosemide 20 mg tablet 20 mg PO QAM ascorbic acid (vitamin C) [Vitamin C] 500 mg Tablet 500 mg PO BID metoprolol succinate [Toprol XL] 25 mg tablet extended release 24 hr 12.5 mg PO DAILY Qty: 30 0RF Hold Instructions: hypotension sucralfate 1 gram tablet 1 g PO DAILY clopidogrel 75 mg tablet 75 mg PO DAILY Colace 100 mg Capsule 100 mg PO BID Miralax 17 gram/dose Powder See Rx Instructions .ROUTE .COMPLEX Rx Instructions: TAKE 34G (2 CAPFULS) MIXED IN 8 OUNCES LIQUID AND DRINK ENTIRE LIQUID DAILY TO PREVENT CONSTIPATION insulin regular human 100 unit/mL (3 mL) Insulin Pen See Rx Instructions .ROUTE .COMPLEX Qty: 15 0RF Rx Instructions: inject, subcut, tid after meals, based on sliding scale provided insulin glargine 100 unit/mL (3 mL) Insulin Pen 5 unit SUBCUT DAILY 30 Days Qty: 15 0RF Thick and Easy Powder In Packet 1 ea PO TIDWMEAL Qty: 100 0RF Rx Instructions: Mild thickened liquids whenever you drink Discharge Orders: Discharge ED (Routine); Ordered 12/20/23 Ordered By: Maureen Zaragoza Referrals: Portia Lawrence MD [Primary Care Provider] - Discharge Diet: Usual diet Discharge Activity: Increase activity as tolerated Patient Instructions: COPD (Chronic Obstructive Pulmonary Disease) (ED) Activity Restrictions/Additional Instructions: Thank you for choosing [facility] for your healthcare needs today. Please realize this is an emergency room and that we are providing you with a medical screening exam and this may not be complete and all inclusive of all the testing and or work up that you may need to determine your ailment or severity of your illness. You have been screened and evaluated and felt safe for discharge. Health conditions do change or evolve sometimes and as such it is important that you follow up with your Primary Doctor to be re checked, 3-5 days is a general good time frame for follow up. You are always welcome to return to the ED for re assessment if your symptoms are worsening or you have new concerns Coding Level of Care Code ED Pizza Delivery for Selin Murillo
[2023-12-20 14:00] VITALS: O2SAT 98
[2023-12-20 14:13] LABS: Basophils % 0.4 %; Eosinophils # 0.1 10^3/uL (0.0-0.8); Eosinophils % 1.5 %; Hematocrit 40.8 % (37-53); Lymphocytes # 0.5 10^3/uL (0.8-4.8); Lymphocytes % 6.8 %; Mean Corpuscular HGB Conc 31.1 g/dL (30-55); Mean Corpuscular Hemoglobin 27.7 pg (27-33); Mean Corpuscular Volume 88.9 fl (82-101); Mean Platelet Volume 10.2 fL (7.4-10.4); Monocytes # 0.9 10^3/uL (0.2-0.9); Monocytes % 11.7 %; Neutrophils % 79.2 %; Nucleated Red Blood Cells % 0 %; Platelet Count 139 10^3/cmm (157-399); Red Blood Count 4.59 10^6/uL (3.85-5.65); Red Cell Distribution Width 14.4 % (12.1-15.1); White Blood Count 7.95 10^3/uL (3.29-11.43)
--- NOTE | 2023-12-20 14:23 | ECG_ITS ---
[facility] Test Date: 2023-12-20 Pat Name: Junior Andersen Department: Room: Gender: Male Condemnation Engineer: : 1950 Requested By: Maureen Aguilar Order Number: [id number] Carmela MD: Luisito Barajas M.D. Measurements Intervals [place] Rate: 61 P: 93 [place]: 133 QRS: 44 QRSD: 141 T: 189 QT: 416 QTc: 421 Interpretive Statements SINUS RHYTHM INTRAVENTRICULAR CONDUCTION DELAY [130+ ms QRS DURATION] Diffuse nonspecific ST-T changes Compared to ECG 12/20/2023 12:43:00 Possibly no significant change Electronically Signed On 12-20-2023 17:12:03 CDT by Luisito Barajas M.D. [id number]
[2023-12-20 14:30] LABS: Lactic Sepsis W/Reflex 0.8 mmol/L (0.5-2.2)
[2023-12-20 14:32] LABS: Troponin(5th) Baseline 21 ng/L (0-15)
[2023-12-20 14:40] LABS: NT Pro B Type Natriuretic Pept 1446 pg/mL (0-125); Procalcitonin 0.19 ng/mL (0-0.5)
[2023-12-20 14:51] LABS: Alanine Aminotransferase 9 U/L (0-41); Alkaline Phosphatase 89 U/L (40-130); Anion Gap 16.5 (5-19); Aspartate Amino Transferase 13 U/L (0-40); Blood Urea Nitrogen 24 mg/dL (8-23); C Reactive Protein 12.1 mg/L (0.0-4.9); Calcium 8.5 mg/dL (8.5-10.5); Carbon Dioxide 20 mmol/L (22-29); Chloride 107 mmol/L (98-107); Creatinine Clr Calc Pharmacy 61.7948; Glucose 100 mg/dL (65-115); Osmolality Calculated 292 mOsm/kg (285-295); Potassium 4.5 mmol/L (3.5-5.1); Sodium 139 mmol/L (136-145); Total Bilirubin 0.6 mg/dL (0.15-1.2)
[2023-12-20 14:56] VITALS: PULSE 70; TEMP 37.3; O2SAT 98
[2023-12-20 15:05] LABS: Covid PCR NEGATIVE (Negative); Influenza A NEGATIVE (Negative); Influenza B NEGATIVE (Negative); Respiratory Syncytial Virus Ce NEGATIVE (Negative)
[2023-12-20] MEDS: methylPREDNISolone sod succ 125 mg/2 mL INJ IVP (15:50)
[2023-12-20] MEDS: cefTRIAXone 1,000 mg SDV 1000 MG IVP (15:52)
[2023-12-20 16:30] VITALS: BP 133/81; PULSE 68; O2SAT 98
[2023-12-20 16:37] VITALS: BP 133/81; PULSE 68; O2SAT 98
== END 2023-12-20 16:44 | disposition home or self-care (01) ==
PROVIDERS: Emergency Provider Emergency Medicine; PCP Family Medicine
DX: J44.1 Chronic obstructive pulmonary disease with (acute) exacerbation (principal); J06.9 Acute upper respiratory infection, unspecified; Z79.02 Long term (current) use of antithrombotics/antiplatelets; Z79.4 Long term (current) use of insulin; F17.210 Nicotine dependence, cigarettes, uncomplicated; Z95.1 Presence of aortocoronary bypass graft; I25.2 Old myocardial infarction; I11.0 Hypertensive heart disease with heart failure; I50.20 Unspecified systolic (congestive) heart failure; E11.9 Type 2 diabetes mellitus without complications; I25.10 Atherosclerotic heart disease of native coronary artery without angina pectoris
CPT/HCPCS: 0241U; 71045; 80053; 83605; 83880; 84145; 84484; 85025; 86140; 87040; 93005; 96374; 96375; 99285; J0696; J2919

== ENCOUNTER → 2024-02-05 14:13 | Outpatient (BNVA) | payer OTHER, SELFPAY | PROVIDERS: PCP Family Medicine; Referring Provider Family Medicine; Visit Provider Specialist | DX: G40.909 Epilepsy, unspecified, not intractable, without status epilepticus (principal); G43.711 Chronic migraine without aura, intractable, with status migrainosus; I65.23 Occlusion and stenosis of bilateral carotid arteries | CPT/HCPCS: 99214 ==

== ENCOUNTER → 2024-03-06 11:16 | Outpatient (BNVA) | payer OTHER, SELFPAY | PROVIDERS: PCP Family Medicine; Visit Provider Nurse Practitioner Family | DX: I25.110 Atherosclerotic heart disease of native coronary artery with unstable angina pectoris (principal); I65.23 Occlusion and stenosis of bilateral carotid arteries; I10 Essential (primary) hypertension; R00.1 Bradycardia, unspecified | CPT/HCPCS: 93005 ==

== ENCOUNTER 2024-03-06 11:55 | Inpatient (IN) | payer OTHER, MEDICARE, SELFPAY ==
[2024-03-06] VITALS (14 sets, daily range): BP systolic 112–156; BP diastolic 42–85; PULSE 61–76; RESP 12–25; TEMP 36.5–37; O2SAT 95–100; BMI 30.8
--- NOTE | 2024-03-06 12:12 | ECG_ITS ---
[facility] Date: 2024-03-06 Pat Name: Junior Andersen Department: Room: Gender: Male Burlapper: : 1950 Requested By: Foster Aguilar Order Number: [id number] Carmela MD: Gee Ochoa M.D. Measurements Intervals [place] Rate: 57 P: 93 SD: 124 QRS: 27 QRSD: 161 T: 160 QT: 454 QTc: 445 Interpretive Statements SINUS BRADYCARDIA LEFT BUNDLE BRANCH BLOCK [120+ ms QRS DURATION, 80+ ms Q/S IN V1/V2, 85+ ms R IN I/aVL/V5/V6] Compared to ECG 03/06/2024 11:21:09 Left bundle-branch block now present Sinus rhythm no longer present Intraventricular conduction delay no longer present Myocardial infarct finding no longer present Electronically Signed On 03-07-2024 10:23:05 4TH GRADE MATH TEACHER by Gee Ochoa M.D. [id number]
--- NOTE | 2024-03-06 12:18 | XR_ITS ---
WS: [id number] Exam: XR chest 1V portable [id number] Date/Time of Exam: 03/06/2024 12:40 PM Reason For Exam: Chest pain Comparison 12/20/2023. The heart is enlarged but unchanged in size. The lungs are clear and fully expanded. No pleural effus ions. The mediastinum is normal in contour. Signs of median sternotomy. Unremarkable bony structures. XR/XR chest 1V portable [id number] IMPRESSION: 1. Cardiac enlargement unchanged. No acute finding.
--- NOTE | 2024-03-06 12:22 | W.ED.RECABL ---
HPI - Recheck/Abnormal Lab/Rx General: Chief Complaint: Recheck/Abnormal Lab/Rx Stated Complaint: ab normal EKG Time Seen by Provider: 03/06/24 12:18 History of Present Illness: 73-year-old man with a history of coronary artery disease, tobacco dependence, CHF, hypertension, diabetes, COPD, who presents emergency room from cardiology clinic. He has been having chest pain for about 30 minutes each night while he sleeping. It wakes him up from sleep. I was contacted by cardiology [employer]NAGER [employer] and he was sent here for admission and probable heart cath tomorrow. He follows with Dr. Barajas. Related Data Home Medications Medication Instructions Recorded Confirmed cholecalciferol (vitamin D3) 25 25 mcg PO DAILY 12/13/22 03/06/24 mcg (1,000 unit) tablet (Vitamin D3) gabapentin 400 mg capsule 400 mg PO TID 12/13/22 03/06/24 glucose 4 gram chewable tablet 4 - 16 g PO Q15M PRN Hypoglycemia 12/13/22 03/06/24 melatonin 5 mg tablet 5 mg PO BEDTIME 12/13/22 03/06/24 omega 5-rkm-lon-fish oil 1,000 mg 1 cap PO BID 12/13/22 03/06/24 (120 mg-180 mg) capsule (Fish Oil) potassium chloride 20 mEq 10 meq PO QAM 12/13/22 03/06/24 tablet,extended release folic acid 400 mcg tablet 400 mcg PO DAILY 04/19/23 03/06/24 furosemide 20 mg tablet 20 mg PO QAM 04/19/23 03/06/24 ipratropium 20 mcg-albuterol 100 1 puff inhalation QID 04/19/23 03/06/24 mcg/actuation mist for inhalation (Combivent Respimat) rosuvastatin 40 mg tablet 40 mg PO QPM 04/19/23 03/06/24 ascorbic acid (vitamin C) 500 mg 500 mg PO BID 06/09/23 03/06/24 tablet (Vitamin C) clopidogrel 75 mg tablet 75 mg PO DAILY 06/17/23 03/06/24 sucralfate 1 gram tablet 1 g PO DAILY 06/17/23 03/06/24 docusate sodium 100 mg capsule 100 mg PO BID 10/18/23 03/06/24 (Colace) polyethylene glycol 3350 17 See Rx Instructions .Route .COMPLEX 10/18/23 03/06/24 gram/dose oral powder (Miralax) Previous Rx's Medication Instructions Recorded nitroglycerin 0.4 mg sublingual 0.4 mg sublingual Q5M PRN chest 02/25/23 tablet pain #30 tabs metoprolol succinate 25 mg 12.5 mg (1/2 x 25 mg) PO DAILY #30 06/11/23 tablet,extended release 24 hr tabs (Toprol XL) insulin glargine 100 unit/mL (3 5 unit (0.05 mL) SUBCUT DAILY 30 10/21/23 mL) subcutaneous pen days #15 mL insulin regular human 100 unit/mL See Rx Instructions .Route 10/21/23 (3 mL) subcutaneous pen .COMPLEX #15 mL starch (thickening) (Thick and 1 ea PO TIDWMEAL #100 ea 10/21/23 Easy oral powder packet) azithromycin 250 mg tablet See Rx Instructions PO .COMPLEX #6 12/20/23 (Zithromax Z-Kody) tabs divalproex 500 mg tablet,extended 1,000 mg (2 x 500 mg) PO DAILY 02/05/24 release 24 hr (Depakote ER) #180 tabs Allergies Allergy/AdvReac Type Severity Reaction Status Date / Time adhesive tape Allergy ALGY-Rash Verified 02/05/24 15:12 Review of Systems Narrative: Constitutional symptoms: Negative except as documented in HPI. Skin symptoms: Negative except as documented in HPI. Eye symptoms: Negative except as documented in HPI. ENMT symptoms: Negative except as documented in HPI. Respiratory symptoms: Negative except as documented in HPI. Cardiovascular symptoms: Negative except as documented in HPI. Gastrointestinal symptoms: Negative except as documented in HPI. Genitourinary symptoms: Negative except as documented in HPI. Musculoskeletal symptoms: Negative except as documented in HPI. Neurologic symptoms: Negative except as documented in HPI. Psychiatric symptoms: Negative except as documented in HPI. Endocrine symptoms: Negative except as documented in HPI. PFSH ED PFSH: Medical History Tobacco abuse NSTEMI (non-ST elevated myocardial infarction) Systolic CHF with reduced left ventricular function, NYHA class 2 Bilateral carotid artery stenosis Erectile dysfunction Urinary retention Cutaneous wart Current smoker JENAE on CPAP Acute cystitis without hematuria Phimosis BPH NOS w ur obs/LUTS COPD (chronic obstructive pulmonary disease) Hypertension Diabetes Complex partial epilepsy with generalization Myocardial infarct Chronic headache CAD (coronary artery disease) Balanitis Surgical History History of cardiac catheterization H/O heart artery stent S/P carotid endarterectomy H/O circumcision History of laparotomy History of appendectomy History of coronary artery bypass graft Family History Mother , at age 103 No problems noted. Father , at age 89 Congestive heart failure (CHF) Other CAD (coronary artery disease) Hypertension Mesothelioma Social History Smoking and tobacco/nicotine status: current every day tobacco/nicotine user cigarettes Packs smoked per day: 1.5 Years cigarettes smoked: 52 [ Other cigarette details: was 2ppd] Alcohol intake: never Substance/Drug Use: never Marital status: service: Yes Current occupational status: retired and disabled Do you think of yourself as: Straight/Heterosexual Physical Exam Narrative: EXAM NARRATIVE: General: Alert, no acute distress. Skin: Warm, dry. Head: Normocephalic, atraumatic. Neck: Supple, trachea midline. Eye: Extraocular movements are intact. Ears, nose, mouth and throat: mucosa moist. Cardiovascular: Regular, Normal peripheral perfusion. Respiratory: Lungs are clear to auscultation, respirations are non-labored, breath sounds are equal, Symmetrical chest wall expansion. Gastrointestinal: Soft, Nontender, Non distended Musculoskeletal: Normal ROM, no deformity. Neurological: Alert and oriented, No focal neurological deficit observed. Psychiatric: Cooperative, appropriate mood & affect. Course Vital Signs: Vital signs: Vital Signs Temperature 97.9 F 03/06/24 12:07 Pulse Rate 70 03/06/24 14:30 Respiratory Rate 18 03/06/24 14:30 Blood Pressure 112/85 03/06/24 14:30 Pulse Oximetry 100 03/06/24 14:30 Oxygen Delivery Me thod Room Air 03/06/24 14:30 MDM - Recheck/Abnormal Lab/Rx Medical Decision Making Differential diagnosis for patient with chest pain includes but is not limited to and based on the above HPI, review of systems and physical exam: Pneumonia. unstable angina. angina. Acute coronary syndrome / NV. Pulmonary embolism. Costochondritis / musculoskeletal. Pleurisy. Pericarditis. Esophageal spasm. Pancreatis. Cholecystitis. Orders placed to evaluate differential diagnosis based on the above differential, HPI and physical exam EKG: Time 1214. Rate 57. Sinus bradycardia. No ST-T changes, no ectopy, left bundle branch block, This was reviewed and interpreted by myself the ER physician at 1220 Chest x-ray: Stable cardiomegaly. Sternotomy wires. No focal infiltrates or signs of failure. This was reviewed and interpreted by myself the emergency room physician. I also reviewed the radiology report. Lab Review: Laboratory results were reviewed and interpreted by myself the emergency room physician. No leukocytosis. Hemoglobin 12.6. BUN and creatinine 15 and 1.2. He has some baseline renal dysfunction and this is at or below his norm. Initial troponin is elevated over his baseline at 64. I reviewed the patient's medical record. Reexamination: Patient remained stable. No increased work of breathing. No altered mental status. No focal motor deficits. Consultation: I spoke with Edwige from the cardiology clinic who is sending the patient to the emergency room for admission. Consultation: I spoke with Dr. Malagon who agrees to admission to the stepdown unit. He recommends consultation with cardiology. Consultation: I spoke with Dr. cOhoa who is on-call for cardiology and he will consult on the patient. Assessment and plan: Unstable angina Coronary artery disease Tobacco dependence ?Therapeutic Lovenox given in the emergency room. Currently no chest pain. -I discussed the patient with the hospitalist on-call who is admitting the patient. - Discussed findings and plan with patient. Answered any questions. - All laboratory values were reviewed and interpreted personally by myself, the ER physician - All imaging was reviewed and interpreted personally by myself, the ER physician. - Evaluation and treatment of this problem were appropriate in the emergency setting Lab Data 03/06/24 12:49 03/06/24 12:49 Radiology Impressions Chest X-Ray 03/06/24 12:18 IMPRESSION: 1. Cardiac enlargement unchanged. No acute finding. Laboratory Results WBC 6.40 10^3/uL (3.29-11.43) 03/06/24 12:49 RBC 4.72 10^6/uL (3.85-5.65) 03/06/24 12:49 Hgb 12.60 g/dL (11.27-16.99) 03/06/24 12:49 Hct 42.7 % (37-53) 03/06/24 12:49 MCV 90.5 fl (82-101) 03/06/24 12:49 MCH 26.7 pg (27-33) L 03/06/24 12:49 MCHC 29.5 g/dL (30-55) L 03/06/24 12:49 RDW 14.6 % (12.1-15.1) 03/06/24 12:49 Plt Count 147 10^3/cmm (157-399) L 03/06/24 12:49 MPV 10.5 fL (7.4-10.4) H 03/06/24 12:49 Neut % (Auto) 67.2 % 03/06/24 12:49 Lymph % (Auto) 18.4 % 03/06/24 12:49 [place] % (Auto) 10.0 % 03/06/24 12:49 Eos % (Auto) 3.6 % 03/06/24 12:49 Baso % (Auto) 0.6 % 03/06/24 12:49 Neut # (Auto) 4.30 10^3/uL (1.8-7.7) 03/06/24 12:49 Lymph # (Auto) 1.2 10^3/uL (0.8-4.8) 03/06/24 12:49 [place] # (Auto) 0.6 10^3/uL (0.2-0.9) 03/06/24 12:49 Eos # (Auto) 0.2 10^3/uL (0.0-0.8) 03/06/24 12:49 Baso # (Auto) 0.0 10^3/uL (0.0-0.1) 03/06/24 12:49 Nucleated RBC % (auto) 0 % 03/06/24 12:49 Nucleated RBCs # 0.0 /100WBC 03/06/24 12:49 Sodium 143 mmol/L (136-145) 03/06/24 12:49 Potassium 4.5 mmol/L (3.5-5.1) 03/06/24 12:49 Chloride 107 mmol/L (98-107) 03/06/24 12:49 Carbon Dioxide 28 mmol/L (22-29) 03/06/24 12:49 Anion Gap 12.5 (5-19) 03/06/24 12:49 BUN 15 mg/dL (8-23) 03/06/24 12:49 Creatinine 1.2 mg/dL (0.7-1.2) 03/06/24 12:49 GFR Calculation Not Reportable 03/06/24 12:49 Glucose 96 mg/dL (65-115) 03/06/24 12:49 Calculated Osmolality 297 mOsm/kg (285-295) H 03/06/24 12:49 Calcium 8.9 mg/dL (8.5-10.5) 03/06/24 12:49 Total Bilirubin 0.6 mg/dL (0.15-1.2) 03/06/24 12:49 AST 13 U/L (0-40) 03/06/24 12:49 ALT 7 U/L (0-41) 03/06/24 12:49 Alkaline Phosphatase 90 U/L (40-130) 03/06/24 12:49 Troponin T Baseline 64 ng/L (0-15) H 03/06/24 12:49 NT-Pro-B Natriuret Pep 1449 pg/mL (0-125) H 03/06/24 12:49 Total Protein 6.7 g/dL (6.6-8.7) 03/06/24 12:49 Albumin 4.1 g/dL (3.5-5.2) 03/06/24 12:49 Globulin 2.6 g/dL (1.3-4.6) 03/06/24 12:49 All radiology interpretation(s) finalized by discharge Discharge Plan Discharge Patient Disposition: Admitted As Inpatient Clinical Impression: Unstable angina, Tobacco abuse CAD (coronary artery disease) Qualifiers: Coronary Disease-Associated Artery/Lesion type: unspecified vessel or lesion type [place] vs. 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
[2024-03-06 12:58] LABS: Basophils % 0.6 %; Eosinophils # 0.2 10^3/uL (0.0-0.8); Eosinophils % 3.6 %; Hematocrit 42.7 % (37-53); Lymphocytes # 1.2 10^3/uL (0.8-4.8); Lymphocytes % 18.4 %; Mean Corpuscular HGB Conc 29.5 g/dL (30-55); Mean Corpuscular Hemoglobin 26.7 pg (27-33); Mean Corpuscular Volume 90.5 fl (82-101); Mean Platelet Volume 10.5 fL (7.4-10.4); Monocytes # 0.6 10^3/uL (0.2-0.9); Neutrophils % 67.2 %; Nucleated Red Blood Cells % 0 %; Platelet Count 147 10^3/cmm (157-399); Red Blood Count 4.72 10^6/uL (3.85-5.65); Red Cell Distribution Width 14.6 % (12.1-15.1)
[2024-03-06 13:18] LABS: Troponin(5th) Baseline 64 ng/L (0-15)
[2024-03-06 13:31] LABS: Alanine Aminotransferase 7 U/L (0-41); Albumin Level 4.1 g/dL (3.5-5.2); Alkaline Phosphatase 90 U/L (40-130); Anion Gap 12.5 (5-19); Aspartate Amino Transferase 13 U/L (0-40); Blood Urea Nitrogen 15 mg/dL (8-23); Calcium 8.9 mg/dL (8.5-10.5); Carbon Dioxide 28 mmol/L (22-29); Chloride 107 mmol/L (98-107); Creatinine Clr Calc Pharmacy 68.1036; Globulin 2.6 g/dL (1.3-4.6); Glucose 96 mg/dL (65-115); NT Pro B Type Natriuretic Pept 1449 pg/mL (0-125); Osmolality Calculated 297 mOsm/kg (285-295); Potassium 4.5 mmol/L (3.5-5.1); Sodium 143 mmol/L (136-145); Total Bilirubin 0.6 mg/dL (0.15-1.2); Total Protein 6.7 g/dL (6.6-8.7)
[2024-03-06] MEDS: enoxaparin 100 mg/mL Syringe SUBCUT (13:54)
--- NOTE | 2024-03-06 13:59 | ECG_ITS ---
[employer] Test Date: 2024-03-06 Pat Name: Junior Andersen Department: Room: Gender: Male Patient Resource Specialist: : 1950 Requested By: Maureen Aguilar Order Number: [id number] Casey MD: Gee Ochoa M.D. Measurements Intervals [place] Rate: 56 P: 91 [place]: 153 QRS: 33 QRSD: 170 T: 174 QT: 467 QTc: 454 Interpretive Statements SINUS BRADYCARDIA LEFT BUNDLE BRANCH BLOCK [120+ ms QRS DURATION, 80+ ms Q/S IN V1/V2, 85+ ms R IN I/aVL/V5/V6] Compared to ECG 03/06/2024 12:14:51 No significant changes Electronically Signed On 03-07-2024 10:34:33 VERIFICATION ENGINEER by Gee Ochoa M.D. [email or web address]
--- NOTE | 2024-03-06 14:18 | PC.PHAR ---
[facility] at 100pm, waited an hour sent again at 215pm if nothing soon [facility] call [facility]
--- NOTE | 2024-03-06 14:55 | P.HP_ITS ---
Providers/Chief Complaint 2 Primary Care Provider: Portia Lawrence MD Chief Complaint: ab normal EKG History of Present Illness Pleasant 73-year-old gentleman with history of CAD, CVA, AR, CHF, coronary artery disease, HTN, diabetes, current smoker, COPD, JENAE on CPAP, other medical problems has been having worsening chest pain over the last 3 to 4 days, central, pressure, currently still symptoms about 6/10. Baseline troponin in ER 64, noted some chronically elevated troponins in the past proBNP is 1449. Chronic LBBB on EKG. He is assessed to have unstable angina and is being admitted to cardiac stepdown with cardiology consultation. Review of Systems 2 Const: Denies: fever(s), chills, body aches or malaise ENMT: Denies: throat pain Card: Reports: chest pain and edema; Denies: pre-syncope or dyspnea on exertion Resp: Denies: dyspnea, productive cough, change in phlegm color or hemoptysis GI: Denies: abdominal pain, nausea, vomiting, diarrhea, constipation, hematochezia or melena : Denies: flank pain, difficulty urinating, urinary frequency or hematuria Musc: Denies: back pain, joint swelling or joint redness Skin/Breast: Denies: rash or new lesions Neuro: Denies: headache(s) or confusion Medications/Allergies Home Medications Medication Instructions Recorded Confirmed Last Taken Type gabapentin 400 mg capsule 400 mg PO TID 12/13/22 03/06/24 06/09/23 History nitroglycerin 0.4 mg sublingual 0.4 mg sublingual Q5M PRN chest 02/25/23 03/06/24 Unknown Rx tablet pain #30 tabs furosemide 20 mg tablet 20 mg PO QAM 04/19/23 03/06/24 06/09/23 History metoprolol succinate 25 mg 12.5 mg (1/2 x 25 mg) PO DAILY #30 06/11/23 03/06/24 Unknown Rx tablet,extended release 24 hr tabs (Toprol XL) clopidogrel 75 mg tablet 75 mg PO DAILY 06/17/23 03/06/24 Unknown History sucralfate 1 gram tablet 1 g PO DAILY 06/17/23 03/06/24 Unknown History divalproex 500 mg tablet,extended 1,000 mg (2 x 500 mg) PO DAILY 02/05/24 03/06/24 Unknown Rx release 24 hr (Depakote ER) #180 tabs albuterol sulfate 90 mcg/actuation 1 inh inhalation QID 03/06/24 03/06/24 Unknown History breath activated powder inhaler aspirin 81 mg tablet,delayed 81 mg PO DAILY 03/06/24 03/06/24 Unknown History release docusate sodium 100 mg tablet 100 mg PO BID 03/06/24 03/06/24 Unknown History empagliflozin 25 mg tablet 25 mg PO DAILY 03/06/24 03/06/24 Unknown History (Jardiance) insulin glargine 100 unit/mL (3 41 unit SUBCUT DAILY 03/06/24 03/06/24 Unknown History mL) subcutaneous pen lisinopril 10 mg tablet 10 mg PO DAILY 03/06/24 03/06/24 Unknown History memantine 5 mg tablet 5 mg PO BID 03/06/24 03/06/24 Unknown History nicotine (polacrilex) 4 mg buccal 4 mg buccal Q4H PRN Smoking 03/06/24 03/06/24 Unknown History lozenge Cessation pantoprazole 40 mg tablet,delayed 40 mg PO DAILY 03/06/24 03/06/24 Unknown History release potassium chloride 10 mEq 10 meq PO DAILY 03/06/24 03/06/24 Unknown History tablet,extended release tamsulosin 0.4 mg capsule 0.4 mg PO DAILY 03/06/24 03/06/24 Unknown History topiramate 50 mg tablet 50 mg PO BID 03/06/24 03/06/24 Unknown History Allergies Allergy/AdvReac Type Severity Reaction Status Date / Time adhesive tape Allergy ALGY-Rash Verified 02/05/24 15:12 PFSH Acute 2 PFSH: Medical History Tobacco abuse NSTEMI (non-ST elevated myocardial infarction) Systolic CHF with reduced left ventricular function, NYHA class 2 Bilateral carotid artery stenosis Erectile dysfunction Urinary retention Cutaneous wart Current smoker JENAE on CPAP Acute cystitis without hematuria Phimosis BPH NOS w ur obs/LUTS COPD (chronic obstructive pulmonary disease) Hypertension Diabetes Complex partial epilepsy with generalization Myocardial infarct Chronic headache CAD (coronary artery disease) Balanitis Surgical History History of cardiac catheterization H/O heart artery stent S/P carotid endarterectomy H/O circumcision History of laparotomy History of appendectomy History of coronary artery bypass graft Family History Mother , at age 103 No problems noted. Father , at age 89 Congestive heart failure (CHF) Other CAD (coronary artery disease) Hypertension Mesothelioma Social History Smoking and tobacco/nicotine status: current every day tobacco/nicotine user cigarettes Packs smoked per day: 1.5 Years cigarettes smoked: 52 [ Other cigarette details: was 2ppd] Alcohol intake: never Substance/Drug Use: never Marital status: service: Yes Current occupational status: retired and disabled Do you think of yourself as: Straight/Heterosexual Vitals/I&O/Wt Last Vital Signs Temp 97.9 F 03/06/24 12:07 Pulse 70 03/06/24 14:30 Resp 18 03/06/24 14:30 BP 112/85 03/06/24 14:30 Pulse Ox 100 03/06/24 14:30 O2 Del Method Room Air 03/06/24 14:30 Weight last 48 hrs Weight 100.244 kg Physical Exam 2 Narrative: Accompanied by family member. Const: COMMON NORMALS: patient oriented x3 and alert GENERAL APPEARANCE: c ooperative ORIENTATION/CONSCIOUSNESS: Yes awake HENMT: COMMON NORMALS: oropharynx normal Neck/C-Spine: COMMON NORMALS: no JVD Resp: COMMON NORMALS: normal respiratory effort and clear to auscultation bilaterally AUSCULTATION: clear to auscultation bilaterally Cardio: COMMON NORMALS: no JVD, regular rhythm, S1 normal heart sound present, S2 normal heart sound present and No murmurs present (Cardio) RHYTHM: regular rhythm HEART SOUNDS: S1 normal heart sound present and S2 normal heart sound present GI: COMMON NORMALS: Normal to inspection, nondistended, normoactive bowel sounds present, Soft to palpation and non-tender PALPATION: Yes Soft to palpation Extremity: COMMON NORMALS: no joint enlargement GENERAL: Yes edema (1+) Neuro: COMMON NORMALS: patient oriented x3 and moves all extremities S ENSORIUM/ORIENTATION: Yes alert Skin: COMMON NORMALS: no rashes or lesions noted GENERAL SKIN EXAM: no rashes or lesions noted Data 03/06/24 12:49 03/06/24 12:49 A&P Assessment and plan (1) Unstable angina: Progressive chest pain/pressure, central, substernal over the last 3 to 4 days, worse this morning.Currently still 6/10 persistent pain. Old LBBB on review of EKG on my interpretation, pending official read. Reviewed vitals, CBC, CMP, troponin, NT proBNP, chest x-ray, ER note, discussed with ER provider. Troponin with mild elevation to 64. Persistent pain. History of CAD. Multiple risk factors. Unstable angina. Started on Lovenox, aspirin, continue plavix, beta- theresa. Monitor for risk of bleeding with anticoagulant, DAPT. Reassess blood counts. May benefit from statin if not already on it. Monitor on telemetry due to risk of arrhythmia. Assess TTE. Pending cardiology assessment, keep n.p.o. with anticipation of likely coronary angiographic assessment. Plan CAD, CVA, AR, continue aspirin, Plavix, beta-theresa. Appears he may not be on statin. Medications to be confirmed. Consider starting statin if no history of intolerance and is not taking 1. CHF, possibly minimal exacerbation lower extremity edema. Some exertional dyspnea. NT-proBNP appears at baseline. Chest x-ray with cardiac enlargement. Will switch his Lasix to IV 20 mg instead of p.o. for now. Monitor intake and output. Monitor for risk of electrolyte deficiency with IV diuretics. Monitor for risk of hypovolemia, kidney injury. Reassess chemistry. HTN, monitor blood pressures. Continue metoprolol. diabetes, takes insulin, 42 units in the morning, short acting through the day. Monitor blood glucose. Assess carb diet once resumed. current smoker, discussed smoking cessation with him for 4 minutes. He has tried quitting but is not ready to quit. He is agreeable to have nicotine replacement available as needed. COPD, not in exacerbation. Breathing treatments. JENAE on CPAP, resume cpap BPH: Continue Flomax Other medical problems Attestations 2 Medical Necessity Statement*: Admission of over 2 midnights anticipated for assessment management of unstable angina in a gentleman with underlying coronary to disease, Current smoker, with multiple comorbidities including diabetes, hypertension, hyperlipidemia, history of stroke, other medical problems. Diagnoses Unstable angina I20.0
--- NOTE | 2024-03-06 14:58 | USCV_ITS ---
Junior Andersen Age: 73 Gender: M : 1950 Exam Date: 03/06/2024 15:59 Ordering Phys: Sukhi Malagon MD Technologist: Exam Location: [facility] [place] Indication: cp ? mi BP: 137 / 58 HR: 58 Rhythm: Sinus Technical Quality: Adequate MEASUREMENTS (Male / Female) Normal Values 2D ECHO LV Diastolic Diameter PLAX 5.7 cm 4.2 - 5.9 / 3.9 - 5.3 cm IVS Diastolic Thickness 1.3 cm 0.6 - 1.0 / 0.6 - 0.9 cm IVS Systolic Thickness 1.6 cm LVPW Diastolic Thickness 1.3 cm 0.6 - 1.0 / 0.6 - 0.9 cm LVPW Systolic Thickness 1.7 cm LVOT Diameter 2.0 cm LV Ejection Fraction 2D Teich 45.1 % LV Ejection Fraction MOD 4C 60.6 % LV Ejection Fraction MOD 2C 50.5 % LV Ejection Fraction 2C AL 49.8 % LA Diameter 3.8 cm RA Systolic Volume 4C AL 70.9 ml RA Systolic Volume 4C MOD 68.8 ml Aorta at Sinotubular Diameter 3.6 cm M-MODE LA Ao Ratio MM 1.3 AV Cusp Separation MM 2.4 cm DOPPLER AV Peak Velocity 98.0 cm/s LVOT Peak Velocity 68.0 cm/s AV Area Cont Eq vti 2.3 cm squared AV Area Cont Eq pk 2.3 cm squared MV Peak Velocity 146.0 cm/s MV Area PHT 2.6 cm squared Mitral E to A Ratio 2.1 TV Peak Velocity 90.0 cm/s TR Peak Velocity 127.0 cm/s TR Peak Gradient 6.5 mmHg TV Peak E Velocity 107.0 cm/s FINDINGS Left Ventricle Left ventricle is normal size. LV systolic function is mildly reduced with EF of 45-50%. Mild global hypokinesis. Right Ventricle Normal in size and function Right Atrium Normal in size Left Atrium Normal in size Mitral Valve Mild mitral annular calcification. Mild mitral regurgitation Aortic Valve Structurally normal aortic valve. Mild aortic regurgitation Tricuspid Valve Mild tricuspid regurgitation. Insufficient TR jet to calculate RVSP Pulmonic Valve Mild pulmonic regurgitation. Pericardium Normal Aorta Grossly normal IVC Not well visualized CONCLUSIONS LV systolic function is mildly reduced with EF of 45-50% Mild mitral regurgitation Mild aortic regurgitation Mild tricuspid regurgitation Mild pulmonic regurgitation Gee Ochoa MD (Electronically Signed) Final Date: 07 March 2024 11:47 S
--- NOTE | 2024-03-06 15:00 | PC.PHAR ---
[facility] never [facility] [place] [facility]. patient did not know meds
--- NOTE | 2024-03-06 15:27 | P.CONIM_ITS ---
Providers/Reason For Consult 2 Consulting Physician/Specialty*: Gee Ochoa MD/ Cardiology Reason for Consult*: Unstable angina Requesting Physician: Dr Zaragoza Attending Physician: Dr Ochoa Primary Care Provider: Portia Lawrence MD History of Present Illness History of Present Illness Junior Andersen is a 73 year old male with past medical history of coronary artery disease, status post CABG in the past with PCI of circumflex artery last year, history of stroke who presented to hospital with chest pain for last 3 to 4 days. According to patient it is substernal and that has been worsening. Still having ongoing chest discomfort. Initial troponin is 64. NT proBNP is elevated. EKG shows normal sinus rhythm with intraventricular conduction delay and nonspecific ST-T changes. Review of Systems 2 Narrative: CONSTITUTIONAL: No fever chills weight loss or gain or night sweats. [] HEENT: Normocephalic, atraumatic.[] RESPIRATORY: No cough, sputum, hemoptysis or wheezing.[] CARDIOVASCULAR: Chest pain GI: no nausea vomiting diarrhea. [] BARREL MARKER: No numbness, tingling, weakness or loss of function in any part of the body. [] MUSCULOSKELETAL: No knee or joint pain or rashes. [] Medications/Allergies Home Medications Medication Instructions Recorded Confirmed Last Taken Type gabapentin 400 mg capsule 400 mg PO TID 12/13/22 03/06/24 06/09/23 History nitroglycerin 0.4 mg sublingual 0.4 mg sublingual Q5M PRN chest 02/25/23 03/06/24 Unknown Rx tablet pain #30 tabs furosemide 20 mg tablet 20 mg PO QAM 04/19/23 03/06/24 06/09/23 History metoprolol succinate 25 mg 12.5 mg (1/2 x 25 mg) PO DAILY #30 06/11/23 03/06/24 Unknown Rx tablet,extended release 24 hr tabs (Toprol XL) clopidogrel 75 mg tablet 75 mg PO DAILY 06/17/23 03/06/24 Unknown History sucralfate 1 gram tablet 1 g PO DAILY 06/17/23 03/06/24 Unknown History divalproex 500 mg tablet,extended 1,000 mg (2 x 500 mg) PO DAILY 02/05/24 03/06/24 Unknown Rx release 24 hr (Depakote ER) #180 tabs albuterol sulfate 90 mcg/actuation 1 inh inhalation QID 03/06/24 03/06/24 Unknown History breath activated powder inhaler aspirin 81 mg tablet,delayed 81 mg PO DAILY 03/06/24 03/06/24 Unknown History release docusate sodium 100 mg tablet 100 mg PO BID 03/06/24 03/06/24 Unknown History empagliflozin 25 mg tablet 25 mg PO DAILY 03/06/24 03/06/24 Unknown History (Jardiance) insulin glargine 100 unit/mL (3 41 unit SUBCUT DAILY 03/06/24 03/06/24 Unknown History mL) subcutaneous pen lisinopril 10 mg tablet 10 mg PO DAILY 03/06/24 03/06/24 Unknown History memantine 5 mg tablet 5 mg PO BID 03/06/24 03/06/24 Unknown History nicotine (polacrilex) 4 mg buccal 4 mg buccal Q4H PRN Smoking 03/06/24 03/06/24 Unknown History lozenge Cessation pantoprazole 40 mg tablet,delayed 40 mg PO DAILY 03/06/24 03/06/24 Unknown History release potassium chloride 10 mEq 10 meq PO DAILY 03/06/24 03/06/24 Unknown History tablet,extended release tamsulosin 0.4 mg capsule 0.4 mg PO DAILY 03/06/24 03/06/24 Unknown History topiramate 50 mg tablet 50 mg PO BID 03/06/24 03/06/24 Unknown History Allergies Allergy/AdvReac Type Severity Reaction Status Date / Time adhesive tape Allergy ALGY-Rash Verified 02/05/24 15:12 PFSH Acute 2 PFSH: Medical History Tobacco abuse NSTEMI (non-ST elevated myocardial infarction) Systolic CHF with reduced left ventricular function, NYHA class 2 Bilateral carotid artery stenosis Erectile dysfunction Urinary retention Cutaneous wart Current smoker JENAE on CPAP Acute cystitis without hematuria Phimosis BPH NOS w ur obs/LUTS COPD (chronic obstructive pulmonary disease) Hypertension Diabetes Complex partial epilepsy with generalization Myocardial infarct Chronic headache CAD (coronary artery disease) Balanitis Surgical History History of cardiac catheterization H/O heart artery stent S/P carotid endarterectomy H/O circumcision History of laparotomy History of appendectomy History of coronary artery bypass graft Family History Mother , at age 103 No problems noted. Father , at age 89 Congestive heart failure (CHF) Other CAD (coronary artery disease) Hypertension Mesothelioma Social History Smoking and tobacco/nicotine status: current every day tobacco/nicotine user cigarettes Packs smoked per day: 1.5 Years cigarettes smoked: 52 [ Other cigarette details: was 2ppd] Alcohol intake: never Substance/Drug Use: never Marital status: service: Yes Current occupational status: retired and disabled Do you think of yourself as: Straight/Heterosexual Vitals/I&O/Wt Last Vital Signs Temp 97.9 F 03/06/24 12:07 Pulse 70 03/06/24 14:30 Resp 18 03/06/24 14:30 BP 112/85 03/06/24 14:30 Pulse Ox 100 03/06/24 14:30 O2 Del Method Room Air 03/06/24 14:30 Weight last 48 hrs Weight 221 lb Physical Exam 2 Narrative: GENERAL: Patient is alert, awake and oriented x3. [] NECK: No jugular vein distension. [] HEENT: No cyanosis. No icterus. No pallor. [] HEART: Regular S1 and S2. No murmur, rub or gallop. [] LUNGS: Clear to auscultate bilaterally. [] CENTRAL NERVOUS SYSTEM: Grossly nonfocal. [] EXTREMITIES: Lower extremities with 1+ edema bilaterally. Data 03/07/24 03:20 03/07/24 03:20 A&P Assessment and plan (1) Unstable angina: (2) CAD (coronary artery disease): Qualifiers: Coronary Disease-Associated Artery/Lesion type: unspecified vessel or lesion type [place] vs. transplanted heart: [place] heart Associated angina: a ngina presence unspecified Qualified Code(s): I25.10 - Atherosclerotic heart disease of [place] coronary artery without angina pectoris (3) Hypertension: Qualifiers: Hypertension type: primary hypertension Qualified Code(s): I10 - Essential (primary) hypertension (4) Bilateral carotid artery stenosis: (5) Tobacco abuse: Plan Patient is admitted with typical chest pain that is worsening. Symptoms are concerning for unstable angina. Troponin is elevated. Trend troponins. Patient given Lovenox. Continue aspirin. Order echocardiogram NPO past midnight. Thank you for involving us with care of this patient. We will continue to follow. Please call with questions. Consult Attestations 2 Medical Necessity Statement: Care expected to cross 2 midnights. Coding Level of Care Code Acute Code for [facility] Fwd Diagnoses Unstable angina I20.0 Coronary artery disease involving [place] heart, angina presence unspecified, unspecified vessel or lesion type I25.10 Coronary Disease-Associated Artery/Lesion type: unspecified vessel or lesion type [place] vs. transplanted heart: [place] heart Associated angina: angina presence unspecified Primary hypertension I10 Hypertension type: primary hypertension Bilateral carotid artery stenosis I65.23 Tobacco abuse Z72.0
[2024-03-06 15:32] LABS: Troponin 5 2HR 61.63 ng/L (0-15); Troponin 5 2HR Delta -2.37 ABS# (0-10)
[2024-03-06] MEDS: aspirin 325 mg Tablet PO (15:33)
--- NOTE | 2024-03-06 17:00 | PC.NURSE ---
report called to Maday JONES at [phone]
[2024-03-06 17:34] LABS: Glucose Point of Care 152 mg/dL (70-110)
[2024-03-06] MEDS: pantoprazole 40 mg SDV IVP (17:45)
[2024-03-06] MEDS: nitroglycerin 0.4 mg sublingual Tablet SUBLINGUAL (17:46)
[2024-03-06] MEDS: insulin lispro 100 unit/1 mL SUBCUT ×2 (17:50→20:43)
--- NOTE | 2024-03-06 17:57 | PC.NURSE ---
patient still reporting a chest pain level of 7/10 after taking a sublingual nitro. Per Dr Malagon's order, patient to be started on a nitro drip.
--- NOTE | 2024-03-06 18:19 | ECG_ITS ---
[facility] Test Date: 2024-03-06 Pat Name: Junior Andersen Department: Room: 111 Gender: Male Mobile Marketing Manager: : 1950 Requested By: Maureen Aguilar Order Number: [id number] Casey MD: Gee Ochoa M.D. Measurements Intervals [place] Rate: 57 P: 91 [place]: 123 QRS: 29 QRSD: 129 T: 201 QT: 408 QTc: 397 Interpretive Statements SINUS BRADYCARDIA POSSIBLE ANTERIOR MYOCARDIAL INFARCTION , OF INDETERMINATE AGE [30 ms Q WAVE IN V3/V4, OR R < 0.2 mV IN V4] MODERATE T-WAVE ABNORMALITY, CONSIDER LATERAL ISCHEMIA [-0.1+ mV T-WAVE IN I/aVL/V5/V6] MODERATE T-WAVE ABNORMALITY, CONSIDER INFERIOR ISCHEMIA [-0.1+ mV T-WAVE IN II/aVF] Compared to ECG 03/06/2024 13:59:43 Myocardial infarct finding now present T-wave abnormality now present Possible ischemia now present Left bundle-branch block no longer present Electronically Signed On 03-07-2024 10:33:03 INSURANCE SALES SUPERVISOR by Gee Ochoa M.D. [email or web address]
[2024-03-06] MEDS: nitroglycerin drip 50 MG/250 ML PREMIX IV (18:46)
[2024-03-06 18:48] LABS: Troponin 5 6HR 60.02 ng/L (0-15)
[2024-03-06 18:50] LABS: Troponin 5 6HR Delta -3.98 ng/L (0-12)
[2024-03-06] MEDS: morphine 4 mg/mL SDV 1 mL 2 MG IVP (19:55)
[2024-03-06 20:35] LABS: Glucose Point of Care 199 mg/dL (70-110)
[2024-03-07] VITALS (53 sets, daily range): BP systolic 118–176; BP diastolic 42–80; PULSE 55–84; RESP 8–30; TEMP 36.6–37.1; O2SAT 91–100
[2024-03-07 04:19] LABS: Anion Gap 11.2 (5-19); Basophils % 0.7 %; Blood Urea Nitrogen 16 mg/dL (8-23); Calcium 8.8 mg/dL (8.5-10.5); Carbon Dioxide 30 mmol/L (22-29); Chloride 109 mmol/L (98-107); Creatinine Clr Calc Pharmacy 62.8649; Eosinophils # 0.2 10^3/uL (0.0-0.8); Eosinophils % 3.9 %; Glucose 107 mg/dL (65-115); Hematocrit 37.6 % (37-53); Lymphocytes % 17.1 %; Mean Corpuscular HGB Conc 29.5 g/dL (30-55); Mean Corpuscular Hemoglobin 26.8 pg (27-33); Mean Corpuscular Volume 90.8 fl (82-101); Monocytes # 0.7 10^3/uL (0.2-0.9); Monocytes % 11.5 %; Neutrophils # 3.89 10^3/uL (1.8-7.7); Neutrophils % 66.5 %; Nucleated Red Blood Cells % 0 %; Osmolality Calculated 304 mOsm/kg (285-295); Platelet Count 133 10^3/cmm (157-399); Potassium 4.2 mmol/L (3.5-5.1); Red Blood Count 4.14 10^6/uL (3.85-5.65); Red Cell Distribution Width 14.6 % (12.1-15.1); Sodium 146 mmol/L (136-145); White Blood Count 5.85 10^3/uL (3.29-11.43)
[2024-03-07] MEDS: morphine 4 mg/mL SDV 1 mL 2 MG IVP ×3 (05:49→17:17)
[2024-03-07 06:35] LABS: Glucose Point of Care 102 mg/dL (70-110)
--- NOTE | 2024-03-07 06:52 | XACV_ITS ---
Exam Room: [facility] Ht: 180 cm Wt: 100 kg BSA: 2.27 m2 Gender: Male : 1950 Any Known Allergies: Other Exam Priority: Routine Procedure(s): Procedure Description: Diagnostic procedure Procedure Description: PCI procedure Procedure Description: Drug Eluting Coronary Stent Procedure Description: PTCA Procedure Description: Miscellaneous Procedure Description: ACT Procedure Description: Coronary Angiography Diagnostic Cath Status: Urgent Diagnostic Findings * INDICATION: Unstable angina. * Left Main is short vessel and has no significant disease. * Left Anterior Descending has ostial chronic total occlusion. * Circumflex has patent prior stent. * RCA is not injected as is known occluded. * Bypass grafts: PLATT to LAD is patent. Gives collateral to RCA. SVG grafts to RCA and circumflex artery are occluded. * Ramus: obstructive 70% stenosis, HAWA: 3 flow. * Coronary angiography shows right dominance. PCI Status: Urgent PCI Indication: Other Interventional Findings * PROCEDURE DETAIL: After normalization, IFR wire was advanced into the distal ramus artery.. iFR value of 0.75 was obtained that was significantly ischemic. We then performed balloon angioplasty with 2.75 x 15 mm NC balloon. This was followed with placement of 3.0 x 18 mm resolute Melissa drug-eluting stent. At this time final angiogram was performed that showed excellent stent expansion and no residual stenosis. Guidewire and guide catheter were removed. Patient left the Friend Of [employer] Court in stable condition.. * Ramus: 70% stenosis treated with a MDT JONAS EUPHORA RX [id number] BALLOON, and MDT Gadiel MELISSA 3.0X18 TONEY. 0% residual stenosis, [place]: 3 flow. Conclusions 1. Severe ramus artery stenosis confirmed with IFR. Status post successful revascularization with 1 stent.. 2. Patient has prior CABG. 3. Ramus was treated with a Balloon, and Drug Eluting Stent. Recommendations * Dual antiplatelet therapy with aspirin and plavix. * Outpatient cardiology follow up in 2 weeks. Interventional RX Recommendation: PCI w/o planned CABG Diagnostic RX Recommendation: PCI w/o planned CABG Anticoagulation: Heparin Pressures Phase:Rest AO : 127 / 46 ( 77 ) @ 8:04:00 AM 140 / 56 ( 85 ) @ 8:15:00 AM Clinical Evaluation EBL: 5mL-10mL Procedural Details Procedure Consent Obtained. Pre-Procedure Time Out. Identified patient by full name and date of as verbalized by the patient/guarantor. Does the consent match the physician's order: Yes. Accurate & Complete Informed Consent: Yes. Inpatient/Outpatient History & Physical on Chart: Yes. If H&P is completed, is and addenduem needed: No; If yes, is the addendum complete: N/A. Visualize and Verify Site with Patient/Guarantor: N/A. Relevant Radiology Images available: N/A. Pre-op teaching completed and patient verbalized understanding. The risks, benefits, and alternatives of sedation and/or procedure were discussed by physician. The patient agrees to continue. Procedure started. Pt arrived with nitro at 40 mcg/min. [facility] Clinical Fraility Score: 6: Moderately Frail. [employer] [address] [employer] Indications: Other: unstable angina. Chest Pain Symptom Assessment: Typical Angina Symptoms. Cardiovascular Instability: No. Correct patient, site and procedure confirmed by cath team. PERRLA. Strong, equal hand deputy insurance commissioner bilaterally. Lungs clear x 5 lobes. IV Site on Arrival: 20 gauge in the right forearm. Oxygen started at 3liters/min via nasal canula. bilateral groins was prepped with chloroprep then draped in the usual sterile fashion. Physician arrived. Baseline sample Acquired. HR: 70 BPM. Equipment: 6F - Femoral. Cardiac Cath Pack. ACIST Manifold Kit Model BT 2000. Heparinized Saline (2 units/mL), 1000 mL bag. Kit, Micropuncture. Physician scrubbed in. Immediate Pre-Procedure Time Out. Correct Patient: Yes; Correct Procedure: Yes; Correct Site: Yes; Correct Patient Position: Yes; Correct Supplies: Yes; Dried Flammable Prep: Yes; Blood Products Available: N/A;. Lidocaine 1% infiltrated to the left groin. An attempt to gain access to the left femoral artery was unsuccessful. Manual pressure was held as needed to stop the bleeding. Lidocaine 1% infiltrated to the right groin. Lidocaine 1% infiltrated to the right groin. Arterial access obtained with micropuncture set. A 5 turkish JL4 catheter in over wire. Unable to advance catheter. Catheter removed. A 5 turkish JR4 catheter in over wire. PLATT to LAD visualized. Exchange wire inserted. Catheter removed over the exchange wire. A 5 turkish JL4 catheter in over wire. Catheter removed over the exchange wire. Multiple views taken of left coronary artery. Inventory is CRD 6 FR XB 3.5 GUIDE. OmniWire Pressure guidewire inserted to obtain IFR measurement. 6 turkish XB 3.5 guide catheter was inserted over the wire. Runthrough guidewire was advanced through the guide catheter to lesion in the Ramus. IFR wire out. Inflation number : 1 A MDT NC EUPHORA RX [id number] BALLOON was prepped and advanced across the Ramus , then inflated to 14 JAMES for 0:09 seconds. Inflation number: 2 The MDT NC EUPHORA RX [id number] BALLOON was reinflated across the Ramus, to 14 JAMES for 0:05 seconds. Balloon out. MDT R MELISSA 3.0x18 TONEY inserted. Unable to cross lesion. Intact stent removed. Guideliner inserted. Inflation Number : 3 A MDT R MELISSA 3.0X18 TONEY -Lot Number# [id number] exp date 11/04/2026 was prepped and advanced across the Ramus. The stent was deployed at 12 JAMES for 0:16 seconds. Stent balloon out over wire. Stent inserted to lesion in the Ramus. Guideliner out. Results checked. Runthrough wire out. ACT drawn. Results out of range high seconds. Therapeutic limits - pre-heparin administration 90-150 seconds and monitoring heparin during a vascular procedure >250 seconds. Guide catheter out. A Right femoral angiogram was performed to determine safe placement of closure device. ACT drawn. Results 338 seconds. Therapeutic limits - pre-heparin administration 90-150 seconds and monitoring heparin during a vascular procedure >250 seconds. Physician scrubbed out. A Suture was successful obtaining hemostatsis at the Right Femoral artery insertion site. Sheath(s) sutured into position with 2-0 silk and sterile 4x4's and Op-site applied over the site. No oozing or signs and symptoms of hematoma noted. Arterial sheath flushed and connected to tranducer and pressure bag with heparinized saline. Post Procedure: Pulses reassessed and unchanged. PERRLA. Strong, equal hand deputy insurance commissioner bilaterally. No VTE prophylaxis required. Contrast type used: Visipaque 320 mgI/mL, 500 mL bottle. Post-op diagnosis: severe Ramus stenosis; s/p 1 stent. Complications: none. Estimated blood loss: 5mL-10mL. Responsiveness - Normal response to verbal stimuli; alert and oriented, PERRLA. Airway - Unaffected, no intervention required; spontaneous ventilation. Circulation: W/N/L, pulses unchanged. Nausea/Vomiting: No. Medication's Wasted: Lidocaine 1% = 10 mL. Medication's Wasted: Heparin = 1000 units. Total IV fluids: 50 mL. Procedure completed. Patient transferred by bed to 1st floor. Vital chart was stopped. Access Site Site: Right Femoral artery Sheath Size: 6 Fr Hemostasis Method: Suture Hemostasis Success: Successful Procedure Medications Start: 7:42 AM Stop: 7:42 AM Medication: Fentanyl Amount: 50 mcg Route: I.V. Start: 7:44 AM Stop: 7:44 AM Medication: Benadryl Amount: 25 mg Route: I.V. Start: 7:52 AM Stop: 7:52 AM Medication: Fentanyl Amount: 25 mcg Route: I.V. Start: 7:56 AM Stop: 7:56 AM Medication: Versed Amount: 1 mg Route: I.V. Start: 8:15 AM Stop: 8:15 AM Medication: Heparin Amount: 7000 units Route: I.V. Start: 8:22 AM Stop: 8:22 AM Medication: Heparin Amount: 1000 units Route: I.V. Start: 8:23 AM Stop: 8:23 AM Medication: Fentanyl Amount: 25 mcg Route: I.V. Start: 8:49 AM Stop: 8:49 AM Medication: Plavix Amount: 600 mg Route: P.O. I, the attending physician, have reviewed and verified all procedure medications. Yes, all medications given per verbal order History/Risk Factors Hypertension: Yes Dyslipidemia: No Peripheral Arterial Disease (PAD): No Myocardial Infarction (TN): Yes Obesity: Yes Renal Disease: No Prior Interventions PCI: Yes CABG: Yes Valve Surgery: No Report Signatures Finalized by Gee Ochoa MD on 03/10/2024 12:14 PM
[2024-03-07] MEDS: aspirin 325 mg Tablet PO (07:01)
--- NOTE | 2024-03-07 07:38 | W.PM.OPSUD ---
Surgery/Procedure H&P Update DATE OF PROCEDURE: March 07, 2024 DATE H&P PERFORMED: 03/06/24 H&P UPDATE INFORMATION: I have reviewed H&P completed within last 30 days, I have examined patient prior to procedure and No changes to prior documentation PREOP DIAGNOSIS: Unstable angina PRIMARY INDICATION FOR PROCEDURE: Unstable angina PLANNED PROCEDURE: Left heart cath with possible percutaneous coronary intervention PATIENT REASSESSED PRIOR TO SEDATION, WITH NO CHANGE NOTED: Yes PHYSICAL EXAM: alert, oriented x 3, clear to auscultation bilaterally and regular rate & rhythm AIRWAY EVAL/ANESTHESIA PLAN: normal airway, ASA III, Local Anesthesia, Risks, benefits & alternatives of sedation and/or procedure discussed and Patient agrees to continue as planned ADDITIONAL INFORMATION: Moderate sedation
--- NOTE | 2024-03-07 07:42 | PC.NURSE ---
off unit to lab rn ushered via bed by cath RN.
--- NOTE | 2024-03-07 09:56 | P.PN_ITS ---
Subjective 2 Subjective: Patient doing well. Had coronary angiogram today that showed moderate to severe proximal ramus artery stenosis confirmed to be significant with iFR status post successful revascularization with 1 stent. Vitals/I&O/Wt Last Vital Signs Temp 97.9 F 03/07/24 09:30 Pulse 67 03/07/24 09:30 Resp 24 H 03/07/24 09:30 BP 144/72 03/07/24 09:30 Pulse Ox 96 03/07/24 09:30 O2 Del Method Nasal Cannula 03/07/24 09:30 FiO2 21 03/07/24 00:17 03/06/24 03/07/24 03/07/24 22:59 06:59 14:59 Intake Total 663.7 / 663.7 66.6 / 730.3 33.6 / 33.6 Output Total 500 / 500 Balance 663.7 / 663.7 -433.4 / 230.3 33.6 / 33.6 Weight last 48 hrs Weight 221 lb Weight 221 lb Weight 221 lb Physical Exam 2 Narrative: GENERAL: Patient is alert, awake and oriented x3. [] NECK: No jugular vein distension. [] HEENT: No cyanosis. No icterus. No pallor. [] HEART: Regular S1 and S2. No murmur, rub or gallop. [] LUNGS: Clear to auscultate bilaterally. [] CENTRAL NERVOUS SYSTEM: Grossly nonfocal. [] EXTREMITIES: Lower extremities with 1+ edema bilaterally. Data 03/08/24 02:59 03/08/24 02:59 A&P Assessment and plan (1) Unstable angina: (2) CAD (coronary artery disease): Qualifiers: Coronary Disease-Associated Artery/Lesion type: unspecified vessel or lesion type [place] vs. transplanted heart: [place] heart Associated angina: a ngina presence unspecified Qualified Code(s): I25.10 - Atherosclerotic heart disease of [place] coronary artery without angina pectoris (3) Hypertension: Qualifiers: Hypertension type: primary hypertension Qualified Code(s): I10 - Essential (primary) hypertension (4) Bilateral carotid artery stenosis: (5) Tobacco abuse: Plan Patient had successful revascularization of ramus artery with 1 stent. PLATT to LAD is patent. [place] left circumflex artery is patent. Continue aspirin and Plavix. ECHO shows mildly reduced LV systolic function. Patient has known carotid artery disease. Will need referral to vascular surgery. Thank you for involving us with care of this patient. We will continue to follow. Please call with questions. Attestations 2 Medical Necessity Statement*: Care expected to cross 2 midnights. Coding Level of Care Code Acute Code for g Fwd Diagnoses Unstable angina I20.0 Coronary artery disease involving [place] heart, angina presence unspecified, unspecified vessel or lesion type I25.10 Coronary Disease-Associated Artery/Lesion type: unspecified vessel or lesion type [place] vs. transplanted heart: [place] heart Associated angina: angina presence unspecified Primary hypertension I10 Hypertension type: primary hypertension Bilateral carotid artery stenosis I65.23 Tobacco abuse Z72.0
[2024-03-07] MEDS: insulin glargine 100 units/1 mL 40 UNIT SUBCUT (11:23)
[2024-03-07] MEDS: ALPRAZolam 0.5 mg Tablet 0.25 MG PO ×2 (11:23→17:19)
[2024-03-07] MEDS: sodium chloride 0.9% 1,000 ML 100 ML IV ×2 (11:23→21:26)
[2024-03-07 11:34] LABS: Partial Thromboplastin Time 81.7 SECONDS (23.9-36.7)
[2024-03-07 12:02] LABS: Glucose Point of Care 103 mg/dL (70-110)
[2024-03-07 13:18] LABS: Partial Thromboplastin Time 24.6 SECONDS (23.9-36.7)
--- NOTE | 2024-03-07 15:14 | P.PN_ITS ---
Subjective 2 Subjective: Feeling better status post angiography. Less chest pain currently. Denies any issues with access site. Vitals/I&O/Wt Last Vital Signs Temp 97.9 F 03/07/24 12:00 Pulse 70 03/07/24 12:00 Resp 14 03/07/24 13:14 BP 135/52 03/07/24 12:00 Pulse Ox 99 03/07/24 13:14 O2 Del Method Nasal Cannula 03/07/24 12:00 FiO2 21 03/07/24 00:17 03/07/24 03/07/24 03/07/24 06:59 14:59 22:59 Intake Total 66.6 / 730.3 416.2 / 416.2 Output Total 500 / 500 350 / 350 Balance -433.4 / 230.3 66.2 / 66.2 Weight last 48 hrs Weight 100.244 kg Weight 100.244 kg Weight 100.244 kg Physical Exam 2 Const: COMMON NORMALS: patient oriented x3 and alert GENERAL APPEARANCE: c ooperative ORIENTATION/CONSCIOUSNESS: Yes awake HENMT: COMMON NORMALS: oropharynx normal Neck/C-Spine: COMMON NORMALS: no JVD Resp: COMMON NORMALS: normal respiratory effort and clear to auscultation bilaterally AUSCULTATION: clear to auscultation bilaterally Cardio: COMMON NORMALS: no JVD, regular rhythm, S1 normal heart sound present, S2 normal heart sound present and No murmurs present (Cardio) RHYTHM: regular rhythm HEART SOUNDS: S1 normal heart sound present and S2 normal heart sound present GI: COMMON NORMALS: Normal to inspection, nondistended, normoactive bowel sounds present, Soft to palpation and non-tender PALPATION: Yes Soft to palpation Extremity: COMMON NORMALS: no joint enlargement GENERAL: Yes edema (1+) OTHER: Right groin sheath. Neuro: COMMON NORMALS: patient oriented x3 and moves all extremities S ENSORIUM/ORIENTATION: Yes alert Skin: COMMON NORMALS: no rashes or lesions noted GENERAL SKIN EXAM: no rashes or lesions noted Data 03/07/24 03:20 03/07/24 03:20 A&P Assessment and plan (1) Unstable angina: Status post coronary angiography with PCI and stenting after finding of severe ramus stenosis. He is feeling better. Chest pain so far resolved. Continue post angiogram care. Monitor on telemetry with risk of reperfusion injury, life-threatening arrhythmia. Reviewed blood counts, hemoglobin 11.1, reassess blood counts, at risk of bleeding with DAPT, after anticoagulation. Reviewed renal function, creatinine 1.3, BUN 16, repeat chemistry. Reviewed cardiology note. Discussed with multiskill operator. Reviewed echocardiogram, EF 45-50%. Mild MVR, mild AVR, mild TVR, mild PVR. On IV hydration, monitor for risk of fluid overload. Continue aspirin, Plavix, resume beta-theresa. Plan CAD, CVA, [place], continue aspirin, Plavix, beta-theresa. Appears he may not be on statin. Medications to be confirmed. Consider starting statin if no history of intolerance and is not taking 1. CHF, possibly minimal exacerbation lower extremity edema. Some exertional dyspnea. NT-proBNP appears at baseline. Chest x-ray with cardiac enlargement. Lasix has been held, receiving IV fluid post angiography, monitor for fluid overload. Monitor intake and output. HTN, monitor blood pressures. Continue metoprolol. diabetes, takes insulin, 42 units in the morning, short acting through the day. Monitor blood glucose. Assess carb diet once resumed. current smoker, discussed smoking cessation with him for 4 minutes. He has tried quitting but is not ready to quit. He is agreeable to have nicotine replacement available as needed. COPD, not in exacerbation. Breathing treatments. JENAE on CPAP, resume cpap BPH: Continue Flomax Other medical problems Attestations 2 Medical Necessity Statement*: Continue hospitalization for assessment management after unstable angina, coronary artery stenting, and gentleman with underlying CHF, multiple additional comorbidities as above. and High MDM includes amount and/or complexity of data reviewed/ordered [ previous or external records, resulted lab(s)/test(s), ordered lab(s)/test(s) and other healthcare professional discussion] and described risk of complication, morbidity or mortality of management as documented Diagnoses Unstable angina I20.0
[2024-03-07 16:17] LABS: Glucose Point of Care 168 mg/dL (70-110)
--- NOTE | 2024-03-07 16:36 | PC.NURSE ---
Pt belongings sister brought the pt's wallet to home.
[2024-03-07] MEDS: pantoprazole 40 mg SDV IVP (17:17)
[2024-03-07] MEDS: topiramate 25 mg Tablet 50 MG PO (17:18)
[2024-03-07] MEDS: metoprolol succinate ER (24 HR) 25 mg Tablet 12.5 MG PO (17:18)
[2024-03-07] MEDS: sucralfate 1 gm Tablet PO (17:18)
[2024-03-07] MEDS: memantine 5 mg tablet PO (17:18)
--- NOTE | 2024-03-07 17:45 | PC.NURSE ---
received pt from med surg via wheelchair Applied temetry monitoring on pt in room 108 and noted HR is in 70s, Pt converted from afib to Sinus Rhythm on the tele monitor.Pt sitting up in chair eating her dinner. denies any pain or discomfort. family at bedside.
[2024-03-07] MEDS: insulin lispro 100 unit/1 mL SUBCUT (17:58)
[2024-03-07 20:39] LABS: Glucose Point of Care 114 mg/dL (70-110)
[2024-03-07] MEDS: gabapentin 400 mg Capsule PO (21:25)
[2024-03-08] VITALS (8 sets, daily range): BP systolic 130–147; BP diastolic 48–65; PULSE 53–87; RESP 10–29; TEMP 36.6–36.8; O2SAT 95–97
[2024-03-08 03:40] LABS: Basophils % 0.6 %; Eosinophils # 0.2 10^3/uL (0.0-0.8); Eosinophils % 2.5 %; Hematocrit 36.5 % (37-53); Lymphocytes # 1.1 10^3/uL (0.8-4.8); Lymphocytes % 17.6 %; Mean Corpuscular HGB Conc 30.1 g/dL (30-55); Mean Corpuscular Hemoglobin 26.8 pg (27-33); Mean Platelet Volume 10.8 fL (7.4-10.4); Monocytes # 0.9 10^3/uL (0.2-0.9); Monocytes % 14.5 %; Neutrophils # 4.16 10^3/uL (1.8-7.7); Neutrophils % 64.3 %; Nucleated Red Blood Cells % 0 %; Platelet Count 134 10^3/cmm (157-399); Red Cell Distribution Width 14.6 % (12.1-15.1); White Blood Count 6.47 10^3/uL (3.29-11.43)
[2024-03-08 03:54] LABS: Anion Gap 12.2 (5-19); Blood Urea Nitrogen 14 mg/dL (8-23); Calcium 8.8 mg/dL (8.5-10.5); Carbon Dioxide 26 mmol/L (22-29); Chloride 109 mmol/L (98-107); Creatinine Clr Calc Pharmacy 68.1036; Glucose 100 mg/dL (65-115); Osmolality Calculated 297 mOsm/kg (285-295); Potassium 4.2 mmol/L (3.5-5.1); Sodium 143 mmol/L (136-145)
[2024-03-08 06:17] LABS: Glucose Point of Care 93 mg/dL (70-110)
--- NOTE | 2024-03-08 07:36 | P.PN_ITS ---
Vitals/I&O/Wt Last Vital Signs Temp 97.8 F 03/08/24 07:23 Pulse 87 03/08/24 07:23 Resp 29 H 03/08/24 07:23 BP 130/48 03/08/24 07:23 Pulse Ox 96 03/08/24 07:23 O2 Del Method Room Air 03/08/24 07:23 FiO2 21 03/08/24 04:49 03/07/24 03/08/24 03/08/24 22:59 06:59 14:59 Intake Total 1037.3 / 1453.5 10.125 / 1463.625 Output Total 750 / 1100 900 / 2000 Balance 287.3 / 353.5 -889.875 / -536.375 Weight last 48 hrs Weight 221 lb Weight 221 lb Weight 221 lb Weight 221 lb Data 03/08/24 02:59 03/08/24 02:59 Attestations 2 Medical Necessity Statement*: Care expected to cross 2 midnights. Coding Level of Care Code Acute Code for Chg Fwfrankie
[2024-03-08] MEDS: sucralfate 1 gm Tablet PO (09:01)
[2024-03-08] MEDS: tamsulosin 0.4 mg Capsule PO (09:01)
[2024-03-08] MEDS: clopidogrel 75 mg Tablet PO (09:01)
[2024-03-08] MEDS: gabapentin 400 mg Capsule PO (09:01)
[2024-03-08] MEDS: topiramate 25 mg Tablet 50 MG PO (09:01)
[2024-03-08] MEDS: aspirin 81 mg EC Tablet PO (09:01)
[2024-03-08] MEDS: memantine 5 mg tablet PO (09:01)
[2024-03-08] MEDS: insulin glargine 100 units/1 mL 40 UNIT SUBCUT (09:01)
[2024-03-08] MEDS: metoprolol succinate ER (24 HR) 25 mg Tablet 12.5 MG PO (09:01)
--- NOTE | 2024-03-08 09:42 | P.DS_ITS ---
Discharge Providers Date of Admission: 03/06/24 16:53 Date of Discharge: March 08, 2024 Attending Provider at Admission: Sukhi Malagon Attending Provider at Discharge: Sukhi Malagon Primary Care Provider: Portia Lawrence MD Diagnoses at Discharge Discharge Diagnosis (1) Unstable angina: Status: Acute (2) CAD (coronary artery disease): Status: Acute Qualifiers: Associated angina: angina presence unspecified Coronary Disease- Associated Artery/Lesion type: unspecified vessel or lesion type [place] vs. transplanted heart: [place] heart Qualified Code(s): I25.10 - Atherosclerotic heart disease of [place] coronary artery without angina pectoris (3) Hypertension: Status: Acute Qualifiers: Hypertension type: primary hypertension Qualified Code(s): I10 - Essential (primary) hypertension (4) Bilateral carotid artery stenosis: Status: Acute (5) Tobacco abuse: Status: Acute Reason for Visit Reason for Visit: ab normal EKG Brief History: Pleasant 73-year-old gentleman with history of CAD, CVA, [place], CHF, coronary artery disease, HTN, diabetes, current smoker, COPD, JENAE on CPAP, other medical problems has been having worsening chest pain over the last 3 to 4 days, central, pressure, currently still symptoms about 6/10. Baseline troponin in ER 64, noted some chronically elevated troponins in the past proBNP is 1449. Chronic LBBB on EKG. He is assessed to have unstable angina and is being admitted to cardiac stepdown with cardiology consultation. Hospital Course Hospital Course He was admitted and started on treatment for unstable angina, including anticoagulation with Lovenox, continue aspirin, Plavix, beta-theresa, statin has been added as well. He was assessed by cardiology. Echocardiogram was obtained and showed EF 45-50%, mild MVR, mild AVR, mild TVR, mild PVR. He underwent coronary angiography with finding of severe ramus stenosis which underwent intervention with stenting. Importance of not discontinue antiplatelets is emphasized due to risk of severe or life-threatening complications with stent thrombosis, etc., he is encouraged to continue to optimize cardiovascular risk factors. He has not felt ready to quit smoking but will think about it. He is otherwise monitoring his blood glucose closely, he is instructed to continue to monitor and optimize blood pressure control as well, include heart healthy diet, exercise, weight management and intends to follow-up about all these with the primary provider. He knows to seek medical attention case of any concerning symptoms or any difficulties with access site. He is otherwise feeling well, without recurrence of any chest pain and feels ready to return home. Physical Exam Const: COMMON NORMALS: patient oriented x3 and alert GENERAL APPEARANCE: cooperative ORIENTATION/CONSCIOUSNESS: Yes awake HENMT: COMMON NORMALS: oropharynx normal Neck/C-Spine: COMMON NORMALS: no JVD Resp: COMMON NORMALS: normal respiratory effort and clear to auscultation bilaterally AUSCULTATION: clear to auscultation bilaterally Cardio: COMMON NORMALS: no JVD, regular rhythm, S1 normal heart sound present, S2 normal heart sound present and No murmurs present (Cardio) RHYTHM: regular rhythm HEART SOUNDS: S1 normal heart sound present and S2 normal heart sound present GI: COMMON NORMALS: Normal to inspection, nondistended, normoactive bowel sounds present, Soft to palpation and non-tender PALPATION: Yes Soft to pa lpation Extremity: COMMON NORMALS: no joint enlargement and no pedal edema Neuro: COMMON NORMALS: patient oriented x3 and moves all extremities SENSORIUM/ORIENTATION: Yes alert Skin: COMMON NORMALS: no rashes or lesions noted GENERAL SKIN EXAM: no rashes or lesions noted Discharge Data Studies Completed and Pending Completed Studies During Hospitalization Category Date Time Status XR chest 1V portable [id number] Stat Exams 03/06/24 12:18 Completed CV. echo complete* [id number] Routine Ultrasound 03/06/24 14:58 Completed Pending at discharge Category Date Time Status LAB ANIMAL TECHNOLOGIST request for service Routine Exams 03/07/24 06:52 Taken Basic Metabolic Panel AM LABS Lab 03/09/24 04:00 Ordered Complete Blood Count w/Auto AM LABS Lab 03/09/24 04:00 Ordered Radiology Impressions Chest X-Ray 03/06/24 12:18 IMPRESSION: 1. Cardiac enlargement unchanged. No acute finding. Laboratory Results WBC 6.47 10^3/uL (3.29-11.43) 03/08/24 02:59 RBC 4.10 10^6/uL (3.85-5.65) 03/08/24 02:59 Hgb 11.00 g/dL (11.27-16.99) L 03/08/24 02:59 Hct 36.5 % (37-53) L 03/08/24 02:59 MCV 89.0 fl (82-101) 03/08/24 02:59 MCH 26.8 pg (27-33) L 03/08/24 02:59 MCHC 30.1 g/dL (30-55) 03/08/24 02:59 RDW 14.6 % (12.1-15.1) 03/08/24 02:59 Plt Count 134 10^3/cmm (157-399) L 03/08/24 02:59 MPV 10.8 fL (7.4-10.4) H 03/08/24 02:59 Neut % (Auto) 64.3 % 03/08/24 02:59 Lymph % (Auto) 17.6 % 03/08/24 02:59 Gillespie % (Auto) 14.5 % 03/08/24 02:59 Eos % (Auto) 2.5 % 03/08/24 02:59 Baso % (Auto) 0.6 % 03/08/24 02:59 Neut # (Auto) 4.16 10^3/uL (1.8-7.7) 03/08/24 02:59 Lymph # (Auto) 1.1 10^3/uL (0.8-4.8) 03/08/24 02:59 Gillespie # (Auto) 0.9 10^3/uL (0.2-0.9) 03/08/24 02:59 Eos # (Auto) 0.2 10^3/uL (0.0-0.8) 03/08/24 02:59 Baso # (Auto) 0.0 10^3/uL (0.0-0.1) 03/08/24 02:59 Nucleated RBC % (auto) 0 % 03/08/24 02:59 Nucleated RBCs # 0.0 /100WBC 03/08/24 02:59 APTT 24.6 SECONDS (23.9-36.7) D 03/07/24 12:55 Sodium 143 mmol/L (136-145) 03/08/24 02:59 Potassium 4.2 mmol/L (3.5-5.1) 03/08/24 02:59 Chloride 109 mmol/L (98-107) H 03/08/24 02:59 Carbon Dioxide 26 mmol/L (22-29) 03/08/24 02:59 Anion Gap 12.2 (5-19) 03/08/24 02:59 BUN 14 mg/dL (8-23) 03/08/24 02:59 Creatinine 1.2 mg/dL (0.7-1.2) 03/08/24 02:59 GFR Calculation Not Reportable 03/08/24 02:59 Glucose 100 mg/dL (65-115) 03/08/24 02:59 POC Glucose 93 mg/dL (70-110) 03/08/24 06:10 Calculated Osmolality 297 mOsm/kg (285-295) H 03/08/24 02:59 Calcium 8.8 mg/dL (8.5-10.5) 03/08/24 02:59 Total Bilirubin 0.6 mg/dL (0.15-1.2) 03/06/24 12:49 AST 13 U/L (0-40) 03/06/24 12:49 ALT 7 U/L (0-41) 03/06/24 12:49 Alkaline Phosphatase 90 U/L (40-130) 03/06/24 12:49 Troponin T Baseline 64 ng/L (0-15) H 03/06/24 12:49 Troponin T 120 Minute 61.63 ng/L (0-15) H 03/06/24 15:05 Delta Troponin T -2.37 ABS# (0-10) L 03/06/24 15:05 Troponin T Hi Sens 6Hr 60.02 ng/L (0-15) H 03/06/24 18:18 Troponin T Hi Sens 6Hr Delta -3.98 ng/L (0-12) L 03/06/24 18:18 NT-Pro-B Natriuret Pep 1449 pg/mL (0-125) H 03/06/24 12:49 Total Protein 6.7 g/dL (6.6-8.7) 03/06/24 12:49 Albumin 4.1 g/dL (3.5-5.2) 03/06/24 12:49 Globulin 2.6 g/dL (1.3-4.6) 03/06/24 12:49 Vitals Last Vital Signs Temp 97.8 F 03/08/24 07:23 Pulse 87 03/08/24 07:23 Resp 29 H 03/08/24 07:23 BP 130/48 03/08/24 07:23 Pulse Ox 96 03/08/24 07:23 O2 Del Method Room Air 03/08/24 07:23 FiO2 21 03/08/24 04:49 Discharge Plan Discharge Patient Disposition: Home Condition: Stable Prescriptions: New atorvastatin 40 mg tablet 40 mg PO QPM Qty: 90 0RF Continued divalproex [Depakote ER] 500 mg tablet extended release 24 hr 1,000 mg PO DAILY Qty: 180 3RF nitroglycerin 0.4 mg tablet, sublingual 0.4 mg sublingual Q5M PRN (Reason: chest pain) Qty: 30 6RF Rx Instructions: do not exceed 3 doses per episode gabapentin 400 mg capsule 400 mg PO TID furosemide 20 mg tablet 20 mg PO QAM metoprolol succinate [Toprol XL] 25 mg tablet extended release 24 hr 12.5 mg PO DAILY Qty: 30 0RF Hold Instructions: hypotension sucralfate 1 gram tablet 1 g PO DAILY insulin glargine 100 unit/mL (3 mL) insulin pen 41 unit SUBCUT DAILY potassium chloride 10 mEq Tablet Extended Release 10 meq PO DAILY tamsulosin 0.4 mg Capsule 0.4 mg PO DAILY pantoprazole 40 mg Tablet,Delayed Release (Dr/Ec) 40 mg PO DAILY lisinopril 10 mg Tablet 10 mg PO DAILY docusate sodium 100 mg Tablet 100 mg PO BID nicotine (polacrilex) 4 mg Lozenge 4 mg BUCCAL Q4H PRN (Reason: Smoking Cessation) memantine 5 mg Tablet 5 mg PO BID topiramate 50 mg Tablet 50 mg PO BID Jardiance 25 mg Tablet 25 mg PO DAILY albuterol sulfate 90 mcg/actuation Aerosol Powdr Breath Activated 1 inh INHALATION QID clopidogrel 75 mg tablet 75 mg PO DAILY Qty: 30 0RF aspirin 81 mg Tablet,Delayed Release (Dr/Ec) 81 mg PO DAILY Qty: 30 0RF Discharge Orders: Discharge Order (Routine); Ordered 03/08/24 Ordered By: Sukhi Malagon Referrals: Portia Lawrence MD [Primary Care Provider] - 4-7 days (Please call for an follow-up appointment in 4 to 7 days. ) Edwige Blount FNP [Nurse Practitioner] - 1 week (We have notified your physician's clinic of the need for a follow-up appointment to be scheduled. If you have not heard from them within the next 2 business days, please call them directly. ) Pavel Marquez MD [Referring] - 7-10 days (We have sent a referral to Dr. Marquez office. If you haven't heard from them in two business days. Please call ) Discharge Diet: Cardiac and Diabetic Discharge Activity: Increase activity as tolerated and Limit activity as instructed Patient Instructions: Atorvastatin (By mouth), How to Stop Smoking (GEN), Heart Healthy Diet (GEN), Cigarette Smoking and Your Health (GEN), Coronary Intravascular Stent Placement (GEN), Prevent Cardiovascular Disease (GEN), Post Angiogram Home Care Instructions Activity Restrictions/Additional Instructions: Please continue aspirin and Plavix without interruption, these are very important to keep the stent open and prevent thrombosis/heart attack. You are also started on cholesterol medication atorvastatin to help reduce cardiovascular disease long-term. Please consider again regarding stopping smoking. Follow-up with your primary provider to help continue to optimize cardiovascular risk factors. Please continue to optimize diabetes control, monitor your blood pressures, work on coming down to a healthy weight, include 150 minutes of moderate exercise per week. Avoid lifting more than 3 pounds for 2 days to allow the access site to heal. If case you notice any sort of pulsatile mass, any pain, or any weakness or loss of sensation in the leg, seek medical attention without delay. Discharge Attestations Time Spent in Discharge Care*: greater than 30 min Quality Metrics Clinical Quality Measures [ No reported AMI, CVA or VTE this stay] Coding Level of Care Code 51558 Total time (in minutes) for Discharge: 40 Diagnoses Unstable angina I20.0 Coronary artery disease involving [place] heart, angina presence unspecified, unspecified vessel or lesion type I25.10 Associated angina: angina presence unspecified Coronary Disease-Associated Artery/Lesion type: unspecified vessel or lesion type [place] vs. transplanted heart: [place] heart Primary hypertension I10 Hypertension type: primary hypertension Bilateral carotid artery stenosis I65.23 Tobacco abuse Z72.0
== END 2024-03-08 11:19 | disposition home or self-care (01) | DRG 322 ==
LOC: ER 13:45 → CSU 16:54
PROVIDERS: Internal Medicine; Admitting Provider Internal Medicine; Emergency Provider Emergency Medicine; PCP Family Medicine; Visit Provider Internal Medicine
PROC: 027034Z Dilation of Coronary Artery, One Artery with Drug-eluting Intraluminal Device, Percutaneous Approach (ICD-10-PCS; principal; 2024-03-07 07:00)
PROC: 027034Z Dilation of Coronary Artery, One Artery with Drug-eluting Intraluminal Device, Percutaneous Approach (ICD-10-PCS; 2024-03-07 07:00)
DX: I25.110 Atherosclerotic heart disease of native coronary artery with unstable angina pectoris (principal); I25.810 Atherosclerosis of coronary artery bypass graft(s) without angina pectoris; I50.22 Chronic systolic (congestive) heart failure; G40.109 Localization-related (focal) (partial) symptomatic epilepsy and epileptic syndromes with simple partial seizures, not intractable, without status epilepticus; Z95.1 Presence of aortocoronary bypass graft; Z86.73 Personal history of transient ischemic attack (TIA), and cerebral infarction without residual deficits; I25.2 Old myocardial infarction; I11.0 Hypertensive heart disease with heart failure; E11.9 Type 2 diabetes mellitus without complications; F17.210 Nicotine dependence, cigarettes, uncomplicated; J44.9 Chronic obstructive pulmonary disease, unspecified; G47.33 Obstructive sleep apnea (adult) (pediatric); I44.7 Left bundle-branch block, unspecified; Z79.02 Long term (current) use of antithrombotics/antiplatelets; Z79.51 Long term (current) use of inhaled steroids; Z79.82 Long term (current) use of aspirin; Z79.4 Long term (current) use of insulin; F17.200 Nicotine dependence, unspecified, uncomplicated; N52.9 Male erectile dysfunction, unspecified; N40.1 Benign prostatic hyperplasia with lower urinary tract symptoms; I08.3 Combined rheumatic disorders of mitral, aortic and tricuspid valves; Z82.49 Family history of ischemic heart disease and other diseases of the circulatory system
CPT/HCPCS: 36415; 36416; 71045; 80048; 80053; 82962; 83880; 84484; 85025; 85347; 85730; 93005; 93306; 93455; 93571; 94660; 96372; 96374; 96375; 99152; 99153; 99214; 99285; C1725; C1769; C1874; C1887; C1894; C9600; J1200; J1644; J1650; J1815; J2250; J2270; J2470; J3010; J3490; J7030; Q9967

== ENCOUNTER → 2024-03-18 13:30 | Outpatient (BNVA) | payer OTHER, SELFPAY | PROVIDERS: PCP Family Medicine; Visit Provider Nurse Practitioner Family | DX: I25.118 Atherosclerotic heart disease of native coronary artery with other forms of angina pectoris (principal); I65.23 Occlusion and stenosis of bilateral carotid arteries; F17.210 Nicotine dependence, cigarettes, uncomplicated; I11.0 Hypertensive heart disease with heart failure; I50.20 Unspecified systolic (congestive) heart failure | CPT/HCPCS: 99214 ==

== ENCOUNTER → 2024-04-22 12:53 | Outpatient (BNVA) | payer OTHER, SELFPAY | PROVIDERS: PCP Family Medicine; Visit Provider Specialist | DX: G31.84 Mild cognitive impairment of uncertain or unknown etiology (principal); I25.10 Atherosclerotic heart disease of native coronary artery without angina pectoris; G40.909 Epilepsy, unspecified, not intractable, without status epilepticus; G43.711 Chronic migraine without aura, intractable, with status migrainosus; R03.0 Elevated blood-pressure reading, without diagnosis of hypertension | CPT/HCPCS: 36415; 80048; 96116; 99214 ==

== ENCOUNTER 2024-04-30 10:13 | Outpatient (RCR) | payer OTHER, SELFPAY | END 2024-05-15 23:59 | disposition home or self-care (01) | LOC: CR 10:13 | PROVIDERS: PCP Family Medicine; Visit Provider Family Medicine | DX: I25.2 Old myocardial infarction (principal) | CPT/HCPCS: 93798 ==

== ENCOUNTER → 2024-05-14 14:14 | Outpatient (BNVA) | payer OTHER, SELFPAY | PROVIDERS: PCP Family Medicine; Visit Provider Internal Medicine | DX: I25.10 Atherosclerotic heart disease of native coronary artery without angina pectoris (principal); I65.23 Occlusion and stenosis of bilateral carotid arteries; J44.9 Chronic obstructive pulmonary disease, unspecified; I11.0 Hypertensive heart disease with heart failure; E11.9 Type 2 diabetes mellitus without complications; I50.20 Unspecified systolic (congestive) heart failure; G47.33 Obstructive sleep apnea (adult) (pediatric); Z99.89 Dependence on other enabling machines and devices; Z95.1 Presence of aortocoronary bypass graft; Z98.890 Other specified postprocedural states; Z72.0 Tobacco use; Z79.4 Long term (current) use of insulin | CPT/HCPCS: 99214 ==

== ENCOUNTER 2024-05-20 14:36 | Outpatient (RCR) | payer OTHER, SELFPAY | END 2024-06-12 23:59 | disposition home or self-care (01) | LOC: CR 14:36 | PROVIDERS: PCP Family Medicine; Visit Provider Family Medicine | DX: I25.2 Old myocardial infarction (principal) | CPT/HCPCS: 93798 ==

== ENCOUNTER 2024-05-25 15:15 | Outpatient (CLI) | payer OTHER, SELFPAY ==
--- NOTE | 2024-05-25 15:30 | USR_ITS ---
PROCEDURE INFORMATION: Exam: US Duplex Bilateral Lower Extremity Arteries Exam date and time: 05/25/2024 3:20 PM Age: 73 years old Clinical indication: Pain; Leg, upper and leg, lower; Bilateral; Additional info: Bilateral leg pain TECHNIQUE: Imaging protocol: Real-time ultrasound scan of the arteries of the bilateral lower extremities with 2-D araiza scale, color Doppler flow and spectral waveform analysis. Images documented and saved. COMPARISON: CT abdomen pelvis wo con [id number] 10/19/2023 10:35 AM FINDINGS: Right common femoral artery: No occlusion or significant stenosis. Normal waveform. Right superficial femoral artery: No occlusion or significant stenosis. Normal waveform. Right popliteal artery: No occlusion or significant stenosis. Normal waveform. Right calf/foot arteries: No occlusion or significant stenosis in the posterior tibial artery. The anterior tibial and peroneal arteries were not imaged Normal waveforms. Dorsalis pedis artery is patent. ARIA 1.09 Left common femoral artery: No occlusion or significant stenosis. Monophasic waveform. Left superficial femoral artery: No occlusion or significant stenosis. Monophasic waveform. Left popliteal artery: No occlusion or significant stenosis. Monophasic waveform. Left calf/foot arteries: No occlusion or significant stenosis in the posterior tibial artery. The anterior tibial and peroneal arteries were not imaged. Monophasic waveforms. Dorsalis pedis artery is patent. Other findings: Decreased PSV measurements on the left compared to the right with monophasic waveforms suggest inflow disease. ABIs 0.48 US/CV arterial duplex [facility] [id number] IMPRESSION: No significant disease on the right. Decreased PSV measurements on the left compared to the right with monophasic waveforms suggest inflow disease. Normal ARIA on the right. Abnormal on the left.
== END 2024-05-25 15:16 | disposition home or self-care (01) ==
PROVIDERS: PCP Family Medicine; Visit Provider Internal Medicine
DX: M79.604 Pain in right leg (principal); M79.605 Pain in left leg; R93.89 Abnormal findings on diagnostic imaging of other specified body structures
CPT/HCPCS: 93925

== ENCOUNTER 2024-06-13 14:30 | Outpatient (RCR) | payer OTHER, SELFPAY | END 2024-07-13 23:59 | disposition home or self-care (01) | LOC: CR 14:30 | PROVIDERS: PCP Family Medicine; Visit Provider Family Medicine | DX: I25.2 Old myocardial infarction (principal) | CPT/HCPCS: 93798 ==

== ENCOUNTER 2024-07-10 12:10 | Outpatient (CLI) | payer OTHER, SELFPAY ==
--- NOTE | 2024-07-10 12:30 | CTR_ITS ---
PROCEDURE INFORMATION: Exam: CTA Abdominal Aorta and Bilateral Lower Extremities (Run-off) With Contrast Exam date and time: 07/10/2024 1:08 PM Age: 73 years old Clinical indication: Prior surgery; Surgery date: 6+ months; Surgery type: Abdomen cancer, left leg vascular, open heart; Bilateral leg pain l>r. Cancer HX, but patient doesnt know what kind or where TECHNIQUE: Imaging protocol: Computed tomographic angiography of the of the abdominal aorta, pelvis and bilateral lower extremities with contrast. 3D rendering (Not supervised by radiologist): MIP and/or 3D reconstructed images were created by the technologist. Radiation optimization: All CT scans at this facility use at least one of these dose optimization techniques: automated exposure control; mA and/or kV adjustment per patient size (includes targeted exams where dose is matched to clinical indication); or iterative reconstruction. Contrast material: OMNI 350; Contrast volume: 100 ml; Contrast route: INTRAVENOUS (IV); COMPARISON: CT abdomen pelvis wo con [id number] 10/19/2023 10:35 AM RADIATION DOSE METRICS: Total DLP (mGy-cm): 1743.25 FINDINGS: Aorta: Advanced atherosclerotic disease of the aorta. No aortic aneurysm. Celiac trunk and mesenteric arteries: No occlusion or significant stenosis. Renal arteries: No occlusion or significant stenosis. Right iliac arteries: Advanced atherosclerotic disease of the common iliac artery and external/internal iliac arteries. There is an area of moderate stenosis in the internal iliac artery. No occlusion. Right femoral/popliteal arteries: Areas of moderate stenosis noted in the common femoral artery distally. Areas of severe stenosis seen distally within the superficial femoral artery. No occlusion. Mild area of stenosis in the popliteal artery without occlusion. Right infrapopliteal arteries: Diminutive flow of the anterior tibial and peroneal arteries within the mid and distal calf but no occlusion. Left iliac arteries: Advanced atherosclerotic disease of the common iliac and internal/external iliac arteries. There is an area of severe stenosis involving the proximal aspect of the left external iliac artery. No occlusion. Left femoral/popliteal arteries: Focal areas of severe stenosis in the distal aspect of the left common femoral artery. Multifocal areas of severe stenosis in the proximal and mid portions of the superficial femoral artery. There is occlusion of the distal aspect of the superficial femoral artery with reconstitution from collateralized vasculature. Popliteal artery is patent. Left infrapopliteal arteries: Diminutive flow of the anterior tibial and peroneal arteries in the mid/distal calf but no occlusion. Liver: No mass. Gallbladder and biliary ducts: Cholecystectomy. No ductal dilation. Pancreas: Unremarkable. No mass. No ductal dilation. Spleen: Normal. No splenomegaly. Adrenal glands: Normal. No mass. Kidneys and ureters: Left simple appearing perirenal cysts noted measuring 3.8 cm in size. No hydronephrosis. Stomach and bowel: Unremarkable. No obstruction. No mucosal thickening. Appendix: No evidence of appendicitis. Urinary bladder: Unremarkable. No mass. Reproductive: Unremarkable as visualized. Intraperitoneal space: Unremarkable. No free air. No significant fluid collection. Lymph nodes: No lymphadenopathy. Bones/joints: No acute fracture. No dislocation. Soft tissues: Unremarkable. CT/CT angio abd aorta runof [id number] IMPRESSION: Inflow: Advanced atherosclerotic disease of the aorta and iliac arteries. Moderate stenosis at the right internal iliac artery and severe stenosis within the left external iliac artery. Outflow: 1. Moderate stenosis of the right common femoral artery with severe stenosis of the left common femoral artery. Severe stenosis of the left proximal and mid superficial femoral artery which is occluded distally with reconstitution. Areas of severe stenosis seen distally within the right superficial femoral artery 2. Diminutive flow of the anterior tibial and peroneal arteries bilaterally in the mid and distal calf, but three-vessel flow remains intact bilaterally.
[2024-07-10] MEDS: iohexol 350 mg/mL 500 mL Btl (per mL) IV (12:53)
[2024-07-10 13:04] LABS: Blood Urea Nitrogen 17 mg/dL (8-23)
== END 2024-07-10 12:11 | disposition home or self-care (01) ==
PROVIDERS: PCP Family Medicine; Visit Provider Internal Medicine
DX: I70.203 Unspecified atherosclerosis of native arteries of extremities, bilateral legs (principal); I70.0 Atherosclerosis of aorta; I70.8 Atherosclerosis of other arteries; Z90.49 Acquired absence of other specified parts of digestive tract; N28.1 Cyst of kidney, acquired
CPT/HCPCS: 75635; 82565; 84520

== ENCOUNTER 2024-07-30 08:44 | Outpatient (CLI) | payer OTHER, SELFPAY ==
[2024-07-30] VITALS (14 sets, daily range): BP systolic 126–165; BP diastolic 47–79; PULSE 47–75; RESP 12–22; TEMP 36.4–37.1; O2SAT 90–98; BMI 32.2
[2024-07-30] MEDS: aspirin 325 mg Tablet PO (09:15)
[2024-07-30] MEDS: diphenhydrAMINE 50 mg Capsule PO (09:15)
[2024-07-30 09:18] LABS: Basophils % 0.6 %; Eosinophils # 0.3 10^3/uL (0.0-0.8); Eosinophils % 4.3 %; Lymphocytes # 1.3 10^3/uL (0.8-4.8); Lymphocytes % 21.3 %; Mean Corpuscular HGB Conc 31.1 g/dL (30-55); Mean Corpuscular Hemoglobin 27.6 pg (27-33); Mean Corpuscular Volume 88.5 fl (82-101); Mean Platelet Volume 10.5 fL (7.4-10.4); Monocytes # 0.7 10^3/uL (0.2-0.9); Monocytes % 10.7 %; Neutrophils # 3.94 10^3/uL (1.8-7.7); Neutrophils % 62.6 %; Nucleated Red Blood Cells % 0 %; Platelet Count 144 10^3/cmm (157-399); Red Blood Count 4.97 10^6/uL (3.85-5.65); Red Cell Distribution Width 14.1 % (12.1-15.1); White Blood Count 6.29 10^3/uL (3.29-11.43)
[2024-07-30 09:33] LABS: Anion Gap 13.7 (5-19); Blood Urea Nitrogen 16 mg/dL (8-23); Calcium 8.9 mg/dL (8.5-10.5); Carbon Dioxide 29 mmol/L (22-29); Chloride 107 mmol/L (98-107); Creatinine Clr Calc Pharmacy 64.2024; Glucose 184 mg/dL (65-115); Osmolality Calculated 306 mOsm/kg (285-295); Potassium 4.7 mmol/L (3.5-5.1); Sodium 145 mmol/L (136-145)
--- NOTE | 2024-07-30 10:00 | XACV_ITS ---
Ht: 180 cm Wt: 105 kg BSA: 2.32 m2 Any Known Allergies: Other Gender: Male : 1950 Exam Type: Invasive Peripheral Vascular Procedure(s): Procedure Description: Peripheral Cath Diagnostic Procedure Procedure Description: Abdominal aortic angiography Procedure Description: Lower extremities' angiography Procedure Description: Peripheral vascular Intervention Procedure Description: PV Balloon Procedure Description: PV Stent Procedure Description: PV Atherectomy Exam Priority: Routine Abdominal Diagnostic Findings Distal abdominal aorta is patent. Lower Extremity Diagnostic Findings INDICATION: 73-year-old man with past medical history of hypertension, carotid artery disease and CAD who has been having severe lifestyle limiting claudication of left lower extremity. Also feels resting foot pain and reduced temperature. CTA was performed that showed severe peripheral artery disease. Plan for peripheral angiogram with possible intervention. Left lower extremity findings: Left common iliac artery is patent. Left external iliac artery has severe 80% stenosis. Left common femoral artery has moderate 50% stenosis. Left profunda artery is patent. Left SFA has severe ostial disease. In the midsegment it is totally occluded with reconstitution of distal vessel via collaterals. Left popliteal artery is patent. Below the knee patient has three-vessel runoff to the foot.. Right lower extremity findings: Right common iliac artery is patent. Right external iliac artery is patent. Right common femoral artery is patent. Right SFA has mid vessel 50 to 60% stenosis. Right profunda artery is patent. Right popliteal artery is patent. Below the knee patient has three-vessel runoff to the foot.. Left External Iliac Artery: 80 % stenosis. Left Mid-longitudinal Common Femoral Artery: 50% stenosis. Left Mid-longitudinal Superficial Femoral Artery: 100% stenosis. Lower Extremity Interventional Findings Left External Iliac Artery: 80% stenosis treated with AB ARMADA 35 [id number], Omnilink Elite Vascular Balloon-Expandable Stent System 6.0mm x 29mm x 135cm, and Omnilink Elite Vascular Balloon-Expandable Stent System 8.0mm x 39mm x 135cm. Left Mid-longitudinal Superficial Femoral Artery: 100% stenosis treated with AB Hope 35 MIGRATORY WORKER Catheter [id number] and Omnilink Elite Vascular Balloon-Expandable Stent System 6.0mm x 39mm x 135cm. Procedure detail: After diagnostic images were obtained, we switched short sheath to 45 cm Cook sheath from right common femoral artery up and over into left common iliac artery. Glidewire was used to cross the stenosis and was put in distal vessel. We performed orbital arthrectomy of the mid SFA. This was followed by balloon angioplasty using 6.0 x 250 mm Hope balloon. Non flow limiting dissection was noted at balloon angioplasty site and was covered with 6.0 x 39 mm Omnilink stent. We then performed balloon angioplasty of the left external iliac artery with 7.0 x 60 mm Hope balloon. This was followed by 2 overlapping stent placement in external iliac artery measuring 8.0 x 39 mm proximally and 6.0 x 29 mm distally. At this time final angiogram was performed that showed excellent stent expansion and no residual stenosis. Patient left the cardiac catheterization technologist in a stable condition. . Conclusions There is severe left lower extremity disease. Status post successful revascularization with 2 stents in the external iliac artery and orbital atherectomy and 1 stent placement in mid SFA.. Recommendations Dual antiplatelet therapy. Outpatient cardiology follow up in 2 weeks. Hemodynamic Data Phase:Rest AO : 161.0 / 55.0 ( 95.0 ) @ 11:23:00 AM 173.0 / 59.0 ( 103.0 ) @ 11:43:00 AM 127.0 / 76.0 ( 100.0 ) @ 11:58:00 AM 143.0 / 46.0 ( 81.0 ) @ 12:06:00 PM 154.0 / 53.0 ( 88.0 ) @ 12:30:00 PM 165.0 / 63.0 ( 103.0 ) @ 12:42:00 PM Access Site Site: Right Femoral artery Sheath Size: 6 Fr Hemost... Method: Suture Hemost... Success: Successful Procedure Details Findings Procedure Consent Obtained. Pre-Procedure Time Out. Identified patient by full name and date of as verbalized by the patient/guarantor. Does the consent match the physician's order: Yes. Accurate & Complete Informed Consent: Yes. Inpatient/Outpatient History & Physical on Chart: Yes. If H&P is completed, is and addenduem needed: No; If yes, is the addendum complete: N/A. Visualize and Verify Site with Patient/Guarantor: N/A. Relevant Radiology Images available: Yes. The risks, benefits, and alternatives of sedation and/or procedure were discussed by physician. The patient agrees to continue. Physician arrived. Procedure started. Current diagnosis: PVD. PERRLA. Strong, equal hand final dressing cutter bilaterally. Lungs clear x 5 lobes. IV Site on Arrival: 20 gauge in the left anticubital. IV Fluids: 0.9% NaCl at KVO. 0 mL infused prior to cardiac catheterization technologist. Pre Procedural Pulses: bilateral dorsalis pedis was Doppled. Pre Procedural Pulses: bilateral posterior tibial was Doppled. Pre Procedural Pulses: bilateral radial was 1+. Oxygen started at 2liters/min via nasal canula. bilateral groins was prepped with chloroprep then draped in the usual sterile fashion. Physician notified. Baseline sample Acquired. HR: 68 BPM. Patient's family in CPRU room #2. Dr[address] Ochoa will update at the completion of the procedure. Equipment: 6F - Femoral. Cardiac Cath Pack. ACIST Manifold Kit Model BT 2000. Heparinized Saline (2 units/mL), 1000 mL bag. Kit, Micropuncture. Physician scrubbed in. Immediate Pre-Procedure Time Out. Correct Patient: Yes; Correct Procedure: Yes; Correct Site: Yes; Correct Patient Position: Yes; Correct Supplies: Yes; Dried Flammable Prep: Yes; Blood Products Available: N/A. Lidocaine 1% infiltrated to the right groin. Arterial access obtained with micropuncture set using ultrasound guidance. A 5 Fr UF catheter in over the exchange glidewire. Pigtail postioned above the bifurcation of the iliacs. Aortagram performed @ 10 mL/sec for a total of 30 mL. UF catheter out over the glidewire. Sheath upsized to a 6 Fr. Seeker catheter inserted over the glidewire. Glidewire out. Seeker advanced to the distal SFA injection was performed of the trification vessels below the knee. Viperwire Advance Peripheral Guidewier in through the seeker and advanced distal to the lesion in the left SFA. Diamondback 360 Peripheral Orbital Atherectomy System 2.0mm x 145cm in over the Viperwire. Orbital atherectomy of the Proximal to Mid SFA performed. Orbital atherectomy of the Proximal to Mid SFA performed. Orbital atherectomy of the Proximal to Mid SFA performed. Atherectomy system out over the Viperwire. Seeker catheter inserted over the viperwire. Viperwire out. Glidewire in through the seeker. Seeker out. Inflation number : 1 A AB Hope 35 MIGRATORY WORKER Catheter [id number] was prepped and advanced across the Superficial Femoral, Left , then inflated to 6 JAMES for 1:29 seconds. Inflation number: 2 The AB Hope 35 MIGRATORY WORKER Catheter [id number] was reinflated across the Superficial Femoral, Left, to 6 JAMES for 1:31 seconds. Balloon out over the glidewire. Left common iliac selected and arteriogram with runoff performed @ 10 mL/sec for a total of 30 mL. Inflation Number : 3 A Omnilink Elite Vascular Balloon-Expandable Stent System 6.0mm x 39mm x 135cm -Lot Number# [id number] was prepped and advanced across the Superficial Femoral, Left. The stent was deployed at 11 JAMES for 0:45 seconds. Exp. . Stent balloon out over wire. Left common iliac selected and arteriogram with runoff performed @ 10 mL/sec for a total of 20 mL. Inflation number : 1 A AB ARMADA 35 OTW [id number] was prepped and advanced across the External Iliac, Left , then inflated to 6 JAMES for 1:00 seconds. Balloon out. Left common iliac selected and arteriogram with runoff performed @ 10 mL/sec for a total of 10 mL. Inflation Number : 2 A Omnilink Elite Vascular Balloon-Expandable Stent System 6.0mm x 29mm x 135cm -Lot Number# [id number] was prepped and advanced across the External Iliac, Left. The stent was deployed at 11 JAMES for 0:47 seconds. Exp. . Stent balloon out over wire. Inflation Number : 3 A Omnilink Elite Vascular Balloon-Expandable Stent System 8.0mm x 39mm x 135cm -Lot Number# [id number] was prepped and advanced across the External Iliac, Left. The stent was deployed at 11 JAMES for 1:00 seconds. Exp. . Inflation number: 4 The stent balloon was then re-inflated across the External Iliac, Left to 7 JAMES for 0:22 seconds. Stent balloon out over wire. Left common iliac selected and arteriogram with runoff performed @ 10 mL/sec for a total of 30 mL. Inflation number: 1 The stent balloon was then re-inflated across the Common Femoral, Left to 11 JAMES for 0:47 seconds. Balloon out over wire. Left common iliac selected and arteriogram with runoff performed @ 10 mL/sec for a total of 20 mL in DSA. Sheath upsized to a 6 Fr. Glidewire out. ACT drawn. Results out of range HI. Will redraw. Sheath injected in Right common femoral artery and runoff performed. Sheath injected in Right common femoral artery and runoff performed in DSA. Dr. Ochoa scrubbed out. A Suture was successful obtaining hemostatsis at the Right Femoral artery insertion site. Sheath(s) sutured into position with 2-0 silk and sterile 4x4's and Op-site applied over the site. No oozing or signs and symptoms of hematoma noted. Arterial sheath flushed and connected to tranducer and pressure bag with heparinized saline. Post Procedure: Pulses reassessed and unchanged. PERRLA. Strong, equal hand final dressing cutter bilaterally. No VTE prophylaxis required. Medication's Wasted: Lidocaine 1% = 4 mL. Medication's Wasted: Nitro = 50 mg. Medication's Wasted: Heparin = 4000 units. Medication's Wasted: Other = Fentanyl 50 mcg. Total IV fluids: 250 mL. Post-op diagnosis: Severe PVD s/p Atherectomy,ballooning and stenting of the left SFA with one stent. Left external iliac ballooning and stenting with two stents. Medication's Wasted: Other = Benadryl 25mg. Complications: none. Estimated blood loss: 5mL-10mL. Responsiveness - Normal response to verbal stimuli; alert and oriented, PERRLA. Airway - Unaffected, no intervention required; spontaneous ventilation. Circulation: W/N/L, pulses unchanged. Nausea/Vomiting: No. Procedure completed. Patient transferred by bed to CPRU. Vital chart was stopped. ACT drawn. Results 270 seconds. Therapeutic limits - pre-heparin administration 90-150 seconds and monitoring heparin during a vascular procedure >250 seconds. Procedure Medications Start: 10:07 AM Stop: 10:07 AM Medication: Plavix Amount: 75 mg Route: P.O. Start: 10:09 AM Stop: 10:09 AM Medication: Versed Amount: 1 mg Route: I.V. Start: 10:09 AM Stop: 10:09 AM Medication: Fentanyl Amount: 50 mcg Route: I.V. Start: 10:15 AM Stop: 10:15 AM Medication: Versed Amount: 1 mg Route: I.V. Start: 10:16 AM Stop: 10:16 AM Medication: Fentanyl Amount: 50 mcg Route: I.V. Start: 10:39 AM Stop: 10:39 AM Medication: Heparin Amount: 7000 units Route: I.V. Start: 10:42 AM Stop: 10:42 AM Medication: Versed Amount: 1 mg Route: I.V. Start: 10:48 AM Stop: 10:48 AM Medication: Fentanyl Amount: 25 mcg Route: I.V. Start: 10:49 AM Stop: 10:49 AM Medication: Heparin Amount: 1000 units Route: I.V. Start: 11:03 AM Stop: 11:03 AM Medication: Heparin Amount: 1000 units Route: I.V. Start: 11:05 AM Stop: 11:05 AM Medication: Versed Amount: 1 mg Route: I.V. Start: 11:05 AM Stop: 11:05 AM Medication: Fentanyl Amount: 25 mcg Route: I.V. Start: 11:15 AM Stop: 11:15 AM Medication: Fentanyl Amount: 25 mcg Route: I.V. Start: 11:27 AM Stop: 11:27 AM Medication: Heparin Amount: 1000 units Route: I.V. Start: 11:30 AM Stop: 11:30 AM Medication: Benadryl Amount: 50 mg Route: I.V. Start: 11:50 AM Stop: 11:50 AM Medication: Plavix Amount: 300 mg Route: P.O. I, the attending physician, have reviewed and verified all procedure medications. Yes, all medications given per verbal order History/Risk Factors Hypertension: Yes Dyslipidemia: Yes Peripheral Arterial Disease (PAD): Yes Myocardial Infarction (ND): Yes Obesity: No Renal Disease: No Tobacco Use: Current/Recent(w/in 1 year) Prior Interventions PCI: Yes CABG: Yes Valve Surgery: No Date of PCI: 03/07/2024 Report Signatures Finalized by Gee Ochoa MD on 08/16/2024 08:41 AM
--- NOTE | 2024-07-30 10:05 | W.PM.OPSFHP ---
Same Day Surgery H&P Indication for Procedure/HPI DATE OF PROCEDURE: July 30, 2024 CHIEF COMPLAINT/INDICATIONFOR SURGICAL PROCEDURE: Severe lifestyle limiting claudication/ Resting pain, low temperature of left lower extremity and foot. PREOP DIAGNOSIS: Severe lifestyle limiting claudication/ Resting pain, low temperature LLE PLANNED PROCEDURE: Operation Date: 07/30/24 10:00 Proposed Procedures p Peripheral Diagnostic - Periph Angio Bilat(Bilateral) - Gee Ochoa M.D Possible intervention 73-year-old man with past medical history of hypertension, carotid artery disease and CAD who has been having severe lifestyle limiting claudication of left lower extremity. Also feels resting foot pain and reduced temperature. CTA was performed that showed severe peripheral artery disease. Plan for peripheral angiogram with possible intervention Medications/Allergies* Home Medications ?Medication ?Instructions ?Recorded ?Confirmed ?Type gabapentin 400 mg capsule 400 mg PO TID 12/13/22 07/30/24 History furosemide 20 mg tablet 20 mg PO QAM 04/19/23 07/30/24 History sucralfate 1 gram tablet 1 g PO DAILY 06/17/23 07/30/24 History albuterol sulfate 90 mcg/actuation 1 inh inhalation QID 03/06/24 07/30/24 History breath activated powder inhaler docusate sodium 100 mg tablet 100 mg PO BID 03/06/24 07/30/24 History empagliflozin 25 mg tablet 25 mg PO DAILY 03/06/24 07/30/24 History (Jardiance) insulin glargine 100 unit/mL (3 41 unit SUBCUT DAILY 03/06/24 07/30/24 History mL) subcutaneous pen memantine 5 mg tablet 5 mg PO BID 03/06/24 07/30/24 History pantoprazole 40 mg tablet,delayed 40 mg PO DAILY 03/06/24 07/30/24 History release potassium chloride 10 mEq 10 meq PO DAILY 03/06/24 07/30/24 History tablet,extended release tamsulosin 0.4 mg capsule 0.4 mg PO DAILY 03/06/24 07/30/24 History Allergies/Adverse Reactions Allergy/AdvReac Type Severity Reaction Status Date / Time adhesive tape Allergy ALGY-Rash Verified 05/14/24 14:32 Current Medications: Generic Name Dose Route Start Last Admin Trade Name Freq PRN Reason Stop Dose Admin Sodium Chloride 1,000 mls @ 50 mls/hr 07/30/24 09:00 07/30/24 09:22 Sodium Chloride 0.9% IV 07/31/24 04:59 Not Given .Q20H ONE Pertinent History/Comorbid Conditions* Medical History (Updated 04/22/24 @ 14:21 by Linda Last MD) Unstable angina Unstable angina Tobacco abuse NSTEMI (non-ST elevated myocardial infarction) Systolic CHF with reduced left ventricular function, NYHA class 2 Bilateral carotid artery stenosis Erectile dysfunction Urinary retention Cutaneous wart Current smoker JENAE on CPAP Acute cystitis without hematuria Phimosis BPH NOS w ur obs/LUTS COPD (chronic obstructive pulmonary disease) Hypertension Diabetes Complex partial epilepsy with generalization Myocardial infarct Chronic headache CAD (coronary artery disease) Balanitis Surgical History (Updated 03/09/24 @ 00:00 by ANA Gaviria) History of cardiac catheterization H/O heart artery stent S/P carotid endarterectomy H/O circumcision History of laparotomy History of appendectomy History of coronary artery bypass graft Family History (Updated 01/27/21 @ 10:31 by Edwige King LPN) Father, at age 89 Mother, at age 103 CAD (coronary artery disease) Mesothelioma Congestive heart failure (CHF) Father Hypertension Social History Smoking and tobacco/nicotine status: current every day tobacco/nicotine user cigarettes Packs smoked per day: 1.5 Years cigarettes smoked: 52 [ Other cigarette details: was 2ppd] Alcohol intake: never Substance/Drug Use: never Marital status: service: Yes Current occupational status: retired and disabled Do you think of yourself as: Straight/Heterosexual Pertinent Exam Findings alert, oriented x 3, clear to auscultation bilaterally and regular rate & rhythm Conscious Sedation Assessment PATIENT ASSESSED PRIOR TO SEDATION, WITH NO CHANGE NOTED: Yes AIRWAY EVAL/ANESTHESIA PLAN: normal airway, ASA III, Local Anesthesia, Risks, benefits & alternatives of sedation and/or procedure discussed and Patient agrees to continue as planned ADDITIONAL INFORMATION: Moderate sedation Recommendations Risks and benefits of procedure reviewed and Patient/family agree to proceed Surgery/Procedure today (Peripheral angiogram with possible intervention) Coding Level of Care Code Acute Code for Bennievarsha Fwfrankie
--- NOTE | 2024-07-30 12:21 | PM.PROC ---
Procedure Note: Date of procedure: 07/30/24 Pre-procedure diagnosis: Severe lifestyle limiting claudication of left lower extremity Post-procedure diagnosis: other (Severe PAD of left lower extremity) Procedure: Severe left external iliac stenosis status post successful revascularization with 2 stents. Total occlusion of left SFA status post successful revascularization with orbital arthrectomy, balloon angioplasty and 1 stent placement. Dual antiplatelet therapy with aspirin and plavix High intensity statin therapy Performing Provider: Gee Ochoa Complications: None Condition: stable Disposition: floor Coding Level of Care Code Acute Code for Selin Murillo
--- NOTE | 2024-07-30 14:23 | PC.NURSE ---
Patient received from agriculture laborer via ~1330. Patient is s/p peripheral angiogram with pressure bag and sheath in place to right groin. Dressing to site remains c,d,i without s/s of bleeding or hematoma formation observed. Instructed patient on site care with restrictions. Patient verbalized understanding. Spouse at bedside. Patient denies pain at this time. Sheath removal pending PTT level drawn at ~1420
[2024-07-30 14:51] LABS: Partial Thromboplastin Time 73.3 SECONDS (23.9-36.7)
[2024-07-30] MEDS: gabapentin 400 mg Capsule PO ×2 (15:01→20:29)
[2024-07-30] MEDS: albuterol 2.5 mg/3 mL Neb INHALATION ×2 (15:40→21:29)
[2024-07-30] MEDS: memantine 5 mg tablet PO (17:10)
[2024-07-30] MEDS: docusate sodium 100 mg Capsule PO (17:10)
[2024-07-30] MEDS: atorvastatin 40 mg Tablet PO (17:10)
[2024-07-30 17:11] LABS: Partial Thromboplastin Time 23.5 SECONDS (23.9-36.7)
--- NOTE | 2024-07-30 17:56 | PC.NURSE ---
Initiated sheath removal at 1733 per protocol. Hemostasis achieved immediately. Maintained presssure to site for 20min. Patient tolerated well. VS remained within normal limits. Covered site with 2x2 and bio-occlusive dressing. Instructed patient on site care and restrictions. Patient verbalized complete understanding. Will continue to monitor.
[2024-07-31 04:34] VITALS: BP 155/69; PULSE 69; RESP 17; O2SAT 94
[2024-07-31 05:18] VITALS: BP 177/82; PULSE 64; RESP 17; TEMP 36.9; O2SAT 97
[2024-07-31] MEDS: FUROsemide 20 mg Tablet PO (05:20)
[2024-07-31 05:52] LABS: Basophils % 0.6 %; Eosinophils # 0.3 10^3/uL (0.0-0.8); Eosinophils % 3.6 %; Hematocrit 42.2 % (37-53); Lymphocytes # 1.1 10^3/uL (0.8-4.8); Mean Corpuscular Hemoglobin 27.5 pg (27-33); Mean Corpuscular Volume 88.7 fl (82-101); Mean Platelet Volume 10.8 fL (7.4-10.4); Monocytes # 0.8 10^3/uL (0.2-0.9); Monocytes % 11.6 %; Neutrophils # 4.65 10^3/uL (1.8-7.7); Neutrophils % 67.8 %; Nucleated Red Blood Cells % 0 %; Platelet Count 135 10^3/cmm (157-399); Red Blood Count 4.76 10^6/uL (3.85-5.65); Red Cell Distribution Width 14.1 % (12.1-15.1); White Blood Count 6.87 10^3/uL (3.29-11.43)
[2024-07-31 05:53] VITALS: PULSE 70
[2024-07-31 06:12] LABS: Anion Gap 15.2 (5-19); Blood Urea Nitrogen 18 mg/dL (8-23); Calcium 8.9 mg/dL (8.5-10.5); Carbon Dioxide 24 mmol/L (22-29); Chloride 108 mmol/L (98-107); Creatinine Clr Calc Pharmacy 69.5526; Glucose 133 mg/dL (65-115); Osmolality Calculated 300 mOsm/kg (285-295); Potassium 4.2 mmol/L (3.5-5.1); Sodium 143 mmol/L (136-145)
[2024-07-31 08:00] VITALS: PULSE 68; RESP 18; O2SAT 96
[2024-07-31 08:09] VITALS: BP 125/65; PULSE 61; RESP 13; TEMP 36.6; O2SAT 97
[2024-07-31] MEDS: albuterol 2.5 mg/3 mL Neb INHALATION (08:09)
--- NOTE | 2024-07-31 08:14 | PM.DCS ---
Discharge Providers Date of Admission: July Date of Discharge: July 31, 2024 Attending Provider at Admission: Gee Ochoa MD Attending Provider at Discharge: Gee Ochoa M.D Primary Care Provider: Portia Lawrence MD Reason for Visit Reason for Visit: I70.203 Brief History: 73-year-old man with past medical history of hypertension, carotid artery disease and CAD who has been having severe lifestyle limiting claudication of left lower extremity. Also feels resting foot pain and reduced temperature. CTA was performed that showed severe peripheral artery disease. Plan for peripheral angiogram with possible intervention Hospital Course Hospital Course Patient had successful revascularization of critical PAD of left lower extremity with 2 stents in the left external iliac artery and orbital arthrectomy and 1 stent in the left SFA. Feeling well. No complications. Patient discharged home in a stable condition on dual antiplatelet therapy with aspirin and plavix. Physical Exam Narrative: GENERAL: Patient is alert, awake and oriented x3. [] NECK: No jugular vein distension. [] HEENT: No cyanosis. No icterus. No pallor. [] HEART: Regular S1 and S2. No murmur, rub or gallop. [] LUNGS: Clear to auscultate bilaterally. [] CENTRAL NERVOUS SYSTEM: Grossly nonfocal. [] EXTREMITIES: Lower extremities with 1+ edema bilaterally. Discharge Data Studies Completed and Pending Pending at discharge Category Date Time Status FLAT CUTTER request for service Routine Exams 07/30/24 10:00 Ordered Laboratory Results WBC 6.87 10^3/uL (3.29-11.43) 07/31/24 05:20 Corrected WBC Cancelled 07/30/24 08:00 RBC 4.76 10^6/uL (3.85-5.65) 07/31/24 05:20 Hgb 13.10 g/dL (11.27-16.99) 07/31/24 05:20 Hct 42.2 % (37-53) 07/31/24 05:20 MCV 88.7 fl (82-101) 07/31/24 05:20 MCH 27.5 pg (27-33) 07/31/24 05:20 MCHC 31.0 g/dL (30-55) 07/31/24 05:20 RDW 14.1 % (12.1-15.1) 07/31/24 05:20 Plt Count 135 10^3/cmm (157-399) L 07/31/24 05:20 MPV 10.8 fL (7.4-10.4) H 07/31/24 05:20 Gran % Cancelled 07/30/24 08:00 Neut % (Auto) 67.8 % 07/31/24 05:20 Lymph % (Auto) 16.0 % 07/31/24 05:20 Scurry % (Auto) 11.6 % 07/31/24 05:20 Eos % (Auto) 3.6 % 07/31/24 05:20 Baso % (Auto) 0.6 % 07/31/24 05:20 Neut # (Auto) 4.65 10^3/uL (1.8-7.7) 07/31/24 05:20 Lymph # (Auto) 1.1 10^3/uL (0.8-4.8) 07/31/24 05:20 Scurry # (Auto) 0.8 10^3/uL (0.2-0.9) 07/31/24 05:20 Eos # (Auto) 0.3 10^3/uL (0.0-0.8) 07/31/24 05:20 Baso # (Auto) 0.0 10^3/uL (0.0-0.1) 07/31/24 05:20 Absolute Gran (auto) Cancelled 07/30/24 08:00 Nucleated RBC % (auto) 0 % 07/31/24 05:20 Nucleated RBCs # 0.0 /100WBC 07/31/24 05:20 APTT 23.5 SECONDS (23.9-36.7) L D 07/30/24 16:03 Sodium 143 mmol/L (136-145) 07/31/24 05:20 Potassium 4.2 mmol/L (3.5-5.1) 07/31/24 05:20 Chloride 108 mmol/L (98-107) H 07/31/24 05:20 Carbon Dioxide 24 mmol/L (22-29) 07/31/24 05:20 Anion Gap 15.2 (5-19) 07/31/24 05:20 BUN 18 mg/dL (8-23) 07/31/24 05:20 Creatinine 1.2 mg/dL (0.7-1.2) 07/31/24 05:20 GFR Calculation Not Reportable 07/31/24 05:20 Glucose 133 mg/dL (65-115) H 07/31/24 05:20 Calculated Osmolality 300 mOsm/kg (285-295) H 07/31/24 05:20 Calcium 8.9 mg/dL (8.5-10.5) 07/31/24 05:20 Vitals Last Vital Signs Temp 97.8 F 07/31/24 08:09 Pulse 61 07/31/24 08:09 Resp 13 07/31/24 08:09 BP 125/65 07/31/24 08:09 Pulse Ox 97 07/31/24 08:09 O2 Del Method Room Air 07/31/24 08:09 Discharge Plan Discharge Patient Disposition: Home Prescriptions: Continued divalproex [Depakote ER] 500 mg tablet extended release 24 hr 1,000 mg PO DAILY Qty: 180 3RF nitroglycerin 0.4 mg tablet, sublingual 0.4 mg sublingual Q5M PRN (Reason: chest pain) Qty: 30 6RF Rx Instructions: do not exceed 3 doses per episode Aimovig Autoinjector 140 mg/mL auto-injector 140 mg SUBCUT ONCE Qty: 1 4RF varenicline tartrate [Chantix] 1 mg tablet 1 mg PO BID Qty: 60 0RF Rx Instructions: 1/2 in AM 7 d, 1 in am 7 d, then 1 AM 1 after lunch varenicline tartrate [Chantix Continuing Month Box] 1 mg tablet 1 mg PO BID Qty: 56 0RF gabapentin 400 mg capsule 400 mg PO TID furosemide 20 mg tablet 20 mg PO QAM metoprolol succinate [Toprol XL] 25 mg tablet extended release 24 hr 12.5 mg PO DAILY Qty: 30 0RF sucralfate 1 gram tablet 1 g PO DAILY insulin glargine 100 unit/mL (3 mL) insulin pen 41 unit SUBCUT DAILY potassium chloride 10 mEq Tablet Extended Release 10 meq PO DAILY tamsulosin 0.4 mg Capsule 0.4 mg PO DAILY pantoprazole 40 mg Tablet,Delayed Release (Dr/Ec) 40 mg PO DAILY docusate sodium 100 mg Tablet 100 mg PO BID memantine 5 mg Tablet 5 mg PO BID Jardiance 25 mg Tablet 25 mg PO DAILY albuterol sulfate 90 mcg/actuation Aerosol Powdr Breath Activated 1 inh INHALATION QID atorvastatin 40 mg tablet 40 mg PO QPM Qty: 90 0RF clopidogrel 75 mg tablet 75 mg PO DAILY Qty: 30 0RF aspirin 81 mg Tablet,Delayed Release (Dr/Ec) 81 mg PO DAILY Qty: 30 0RF Discharge Orders: Discharge Order (Routine); Ordered 07/31/24 Ordered By: Gee Ochoa Referrals: Portia Lawrence MD [Primary Care Provider] - 08/05/24 1:30 pm Edwige Blount FNP [Nurse Practitioner] - 08/14/24 8:45 am Diet: Diabetic Activity: Increase activity as tolerated Patient Instructions: How to Stop Smoking (DC), Peripheral Vascular Stent Placement (DC), Peripheral Vascular Angioplasty (DC) Print Language: [place] Discharge Date/Time: 07/31/24 09:10 Discharge Attestations Time Spent in Discharge Care*: less than 30 min Quality Metrics Clinical Quality Measures [ No reported AMI, CVA or VTE this stay] Coding Level of Care Code Acute Code for Chg Lidia
[2024-07-31] MEDS: gabapentin 400 mg Capsule PO (08:19)
[2024-07-31] MEDS: divalproex ER 500 mg Tablet (24H) 1000 MG PO (08:19)
[2024-07-31] MEDS: pantoprazole DR 40 mg Tablet PO (08:19)
[2024-07-31] MEDS: clopidogrel 75 mg Tablet PO (08:19)
[2024-07-31] MEDS: sucralfate 1 gm Tablet PO (08:19)
[2024-07-31] MEDS: aspirin 81 mg EC Tablet PO (08:19)
[2024-07-31] MEDS: potassium chloride ER 10 mEq Tablet PO (08:20)
[2024-07-31] MEDS: tamsulosin 0.4 mg Capsule PO (08:20)
[2024-07-31] MEDS: docusate sodium 100 mg Capsule PO (08:20)
[2024-07-31] MEDS: metoprolol succinate ER (24 HR) 25 mg Tablet 12.5 MG PO (08:20)
[2024-07-31] MEDS: memantine 5 mg tablet PO (08:20)
--- NOTE | 2024-07-31 09:06 | PC.NURSE ---
Patient discharged to home. Instruction provided regarding follow up needs, smoking cessation, and site care with restrictions. Patient verbalized complete understanding. No medication changes. Patient left ambulatory. Denies pain or needs. Daughter to provide transportation.
== END 2024-07-31 09:10 | disposition home or self-care (01) ==
LOC: CCL 08:46 → CSU 23:38
PROVIDERS: Nurse Practitioner Family; PCP Family Medicine; Visit Provider Internal Medicine
DX: I70.222 Atherosclerosis of native arteries of extremities with rest pain, left leg (principal); I25.10 Atherosclerotic heart disease of native coronary artery without angina pectoris; I11.0 Hypertensive heart disease with heart failure; I50.20 Unspecified systolic (congestive) heart failure; E78.5 Hyperlipidemia, unspecified; Z95.1 Presence of aortocoronary bypass graft; Z79.82 Long term (current) use of aspirin; Z79.4 Long term (current) use of insulin; K21.9 Gastro-esophageal reflux disease without esophagitis; E11.9 Type 2 diabetes mellitus without complications; G47.33 Obstructive sleep apnea (adult) (pediatric); J44.9 Chronic obstructive pulmonary disease, unspecified; I25.2 Old myocardial infarction
CPT/HCPCS: 36415; 37221; 37227; 75625; 75716; 80048; 85025; 85347; 85730; 94640; 96374; 96375; 96376; 99152; 99153; C1724; C1725; C1769; C1876; C1887; C1894; J1200; J1644; J2250; J3010; J3490; J7030; J7613; J9999; Q9967

== ENCOUNTER → 2024-08-11 08:06 | Outpatient (BNVA) | payer OTHER, SELFPAY | PROVIDERS: PCP Family Medicine; Visit Provider Surgery | DX: K92.2 Gastrointestinal hemorrhage, unspecified (principal) | CPT/HCPCS: 99214 ==

== ENCOUNTER → 2024-08-14 08:18 | Outpatient (BNVA) | payer OTHER, SELFPAY | PROVIDERS: PCP Family Medicine; Referring Provider Internal Medicine; Visit Provider Nurse Practitioner Family | DX: Z09 Encounter for follow-up examination after completed treatment for conditions other than malignant neoplasm (principal); I73.9 Peripheral vascular disease, unspecified | CPT/HCPCS: 36415; 80048; 99214 ==

== ENCOUNTER → 2024-08-20 11:31 | Outpatient (BNVA) | payer OTHER, SELFPAY | PROVIDERS: PCP Family Medicine; Visit Provider Specialist | DX: G40.909 Epilepsy, unspecified, not intractable, without status epilepticus (principal); G43.711 Chronic migraine without aura, intractable, with status migrainosus; R03.0 Elevated blood-pressure reading, without diagnosis of hypertension; G31.84 Mild cognitive impairment of uncertain or unknown etiology | CPT/HCPCS: 99213 ==

== ENCOUNTER 2024-11-19 16:55 | Inpatient (IN) | payer OTHER, MEDICARE, SELFPAY ==
--- OUTSIDE RECORDS SUMMARY | 2023-06-03 05:50 | XMS_ITS ---
Author Organization [facility] Address [address] [place] [address] Care Team Providers Care Jointer Machine Name Role Phone OWENS, JOSE Unavailable [phone] REASON FOR VISIT 6-8 WK CYSTO Encounters Encounter Location Date Provider Diagnosis [facility] [address] [place] [facility] [place] [address] 06/03/2023 JOSE OWENS Plan Of Treatment No Information Progress Notes * Junior CANO srDOB: [birth year] (74 yo M)Acc No.[id number]:06/03/2023 Patient: Karlee Junior MCCALL sr Provider: Shelly OWENS MD :1950 A ge:72 Y S ex:Male Date:06/03/2023 Address:[address] [place] [address] Subjective: * Chief Complaints: * 1 . 6-8 WK CYSTO. * Medical History: Objective: * Vitals: Assessment: Plan: * Treatment: * Billing Information: * Visit Code: * Procedure Codes: * Electronic signature of AUST IN MD GRACIELA on 11/20/2024 at 12:06 AM CDT Sign off status: Pending * Provider: Shelly OWENS MD Date: 06/03/2023 Generated for Printi ng/Faxing/eTransmitting on: 11/20/2024 12:06 AM CDT
--- OUTSIDE RECORDS SUMMARY | 2023-06-03 05:50 | XMS_ITS ---
Author Organization [facility] Address [address] [facility] [place] [address] Care Team Providers Care Risk Control Product Liability Director Name Role Phone OWENS, JOSE Unavailable [phone] REASON FOR VISIT 6-8 WK CYSTO Encounters Encounter Location Date Provider Diagnosis [facility] [address] [place] [facility] [place] [address] 06/03/2023 JOSE OWENS Plan Of Treatment No Information Progress Notes * Junior CANO srDOB: [birth year] (74 yo M)Acc No.[id number]:06/03/2023 Patient: Karlee Junior MCCALL sr Provider: Shelly OWENS MD :1950 A ge:72 Y S ex:Male Date:06/03/2023 Address:[address] [place] [address] Subjective: * Chief Complaints: * 1 . 6-8 WK CYSTO. * Medical History: Objective: * Vitals: Assessment: Plan: * Treatment: * Billing Information: * Visit Code: * Procedure Codes: * Electronic signature of AUST IN MD GRACIELA on 11/19/2024 at 05:13 PM CDT Sign off status: Pending * Provider: Shelly OWENS MD Date: 06/03/2023 Generated for Printi ng/Faxing/eTransmitting on: 11/19/2024 05:13 PM CDT
[2024-11-19] VITALS (11 sets, daily range): BP systolic 120–181; BP diastolic 47–81; PULSE 49–78; RESP 16–22; TEMP 36.8; O2SAT 92–98; BMI 32.1; BMI 33.3; BMI 34.6
--- NOTE | 2024-11-19 17:05 | ECG_ITS ---
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 Measurements Intervals [place] Rate: 66 P: 87 [place]: 133 QRS: 70 QRSD: 129 T: 234 QT: 434 QTc: 456 Interpretive Statements SINUS RHYTHM MODERATE INTRAVENTRICULAR CONDUCTION DELAY [105+ ms QRS DURATION, 80+ ms Q/S IN V1/V2, NO Q AND 60+ ms R IN I/aVL/V5/V6] ST DEVIATION AND MODERATE T-WAVE ABNORMALITY, CONSIDER LATERAL ISCHEMIA [-0.1+ mV T-WAVE IN I/aVL/V5/V6] ST DEVIATION AND MODERATE T-WAVE ABNORMALITY, CONSIDER INFERIOR ISCHEMIA [-0.1+ mV T-WAVE IN II/aVF] Compared to ECG 03/06/2024 18:21:57 Intraventricular conduction delay now present Sinus bradycardia no longer present. Myocardial infarct finding no longer present.T-wave abnormality still present Possible ischemia still present Electronically Signed On 11-20-2024 13:49:41 CDT by Luisito Barajas M.D. [email or web address]
--- NOTE | 2024-11-19 17:14 | XRR_ITS ---
PROCEDURE INFORMATION: Exam: XR Chest Exam date and time: 11/19/2024 5:17 PM Age: 74 years old Clinical indication: Shortness of breath; Additional info: Chest pain TECHNIQUE: Imaging protocol: Radiologic exam of the chest. Views: 1 view. COMPARISON: CR XR chest 1V portable [id number] 03/06/2024 12:41 PM FINDINGS: Lungs: Few scattered strands at the lung bases, nonspecific although commonly chronic. Unremarkable. No consolidation. Pleural spaces: Unremarkable. No pleural effusion. No pneumothorax. Heart/Mediastinum: Post cardiac surgery residuals. Probable mild cardiomegaly. Bones/joints: Mild degenerative changes of the AC joint. XR/XR chest 1V portable [id number] IMPRESSION: No definite acute infiltrate or effusion.
--- OUTSIDE RECORDS SUMMARY | 2024-11-19 17:14 | XMS_ITS | Patient Health Record ---
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 Name Role Phone JOSE OWENS [phone] Allergies Allergen (clinical drug ingredient) Drug/Non Drug Allergy documented on EMR Reaction Allergy Type Onset Date Status Tape allergy Allergy Active Reason For Referral No Information Medications Medication SIG (Take, Route, Frequency, Duration) Notes Start Date End Date Status Insulin Glargine Act howard Lisinopril 20 MG 1 tablet Orally Once a day Active Metoprolol Succinate 50 mg twice a day Active Nitroglycerin prn Active MiraLax Active Albuterol Active Potassium Active Aspirin 325 MG 1 tablet Orally Once a day Active Rosuvastatin Calcium Active Vitamin D3 Active Tamsulosin HCl 0.4 MG 1 capsule Orally O nce a day Active Plavix 75 MG 1 tablet Orally Once a day Active Topiramate 50 MG 1 tablet Orally Once a day 03/14/2023 Active Colace Active Fish Oil Active Lasix 20 MG 1 tablet Orally Once a day Active Social History Tobacco Use: Social History Observation Description Date Details (start date - stop date) Current Smoker NA - NA Tobacco Use/Smoking Question Answer Notes Tobacco use: current smoker Problems Problem Type SNOMED Code ICD Code Onset Dates Problem Status W/U Status Risk Notes Problem Erectile dysfunction (disorder) (502915444) ED (erectile dysfunction) (N52.9) Active confirmed Problem History of gross hematuria (Z87.448) Active confirmed Problem Family history of bladder cancer (977784816) Family history of bladder cancer (Z80.52) Active confirmed Problem Urinary retention (783421809) Urinary retention (R33.9) Active confirmed Problem Benign prostatic hypertrophy with outflow obstruction (729664414) BPH loc w urin obs/LUTS (N40.1) Active confirmed Plan Of Treatment Pending Test Test Name Order Date CT Abd & [place] & [place] [id number] 03/14/2023 Bladder Scan 03/14/2023 Insurance Providers Payer Name Payer Address Payer Phone Subscriber Number Group Number Insured Name Patient Relationship to Insured Coverage Start Date Coverage End Date [employer] [address] [place] [id number] Junior Andersen Self - patient is the insured Medical (General) History Medical History History ICD Code anxiety arthropathy CAD cervicalgia hx chest pain COPD chronic pain syndrome chronic pulmonary edema compression fx thoracic hypertension heart failure hematuria hx of hyperlipidemia ED seizuresTIAs diabetes Surgical History Surgery Date(Month/Year) carotid endarterectomy CABG 2004 heart stents 11/2022 appendectomy
--- OUTSIDE RECORDS SUMMARY | 2024-11-19 17:14 | XMS_ITS | Patient Health Record ---
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 Name Role Phone Wilfred Knight Primary Care Provider Raulito Palafox MD, Zay Unavailable [phone] Reason For Referral No Information Medications Medication SIG (Take, Route, Frequency, Duration) Notes Start Date End Date Status metoprolol 100 mg 1/2 tab(s) orally 2 times a day; Duration: 30 day(s) Active Niaspan ER 500 mg 1 tab(s) orally once a day (at bedtime); Duration: 30 day(s) Active carBAMazepine 300 mg 1 tab(s) orally 3 t imes a day; Duration: 30 day(s) Active furosemide 40 mg 1 tab(s) orally once a day; Duration: 30 day(s) Active dipyridamole 200 mg/aspirin 25 mg 1 tab(s) orally 2 times a day; Duration: 30 day(s) Active amitriptyline 50 mg 1 tab(s) orally once a day at bedtime; Duration: 30 day(s) Active simvastatin 80 mg 1 tab(s) orally once a day (at bedtime); Duration: 30 day(s) Active valproic acid 250 mg 1 cap(s) orally 2 t imes a day; Duration: 30 day(s) Active omeprazole 20 mg 1 cap(s) orally once a day; Duration: 30 day(s) Active Plan Of Treatment No Information Insurance Providers Payer Name Payer Address Payer Phone Subscriber Number Group Number Insured Name Patient Relationship to Insured Coverage Start Date Coverage End Date [facility] [address] [place] [address] [phone] Junior Andersen Self - patient is the insured Medical (General) History Medical History History ICD Code Chronic pain syndrome Skin hypersensitivity post mastectomy Seizure disorder Back strain Impaired hearing Limited motion cervical spine Limited wrist motion Nerve paralysis, undefined Coronary artery disease Chemotherapy x 2 for right breast cancer Surgical History Surgery Date(Month/Year) Basal cell carcinoma excision 07/2008 Triple bypass 12/2004 Partial right mastectomy 2008 Right knee Partial right mastectomy Late Hospitalization History Reason Date(Month/Year)
--- NOTE | 2024-11-19 17:15 | W.ED.SOB ---
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 Associated symptoms: Reports chest pain, orthopnea and palpitations; Deny abdominal pain or fever(s) Related Data Home Medications ?Medication ?Instructions ?Recorded ?Confirmed gabapentin 400 mg capsule 400 mg PO TID 12/13/22 08/20/24 furosemide 20 mg tablet 20 mg PO QAM 04/19/23 08/20/24 sucralfate 1 gram tablet 1 g PO DAILY 06/17/23 08/20/24 albuterol sulfate 90 mcg/actuation 1 inh inhalation QID 03/06/24 08/20/24 breath activated powder inhaler docusate sodium 100 mg tablet 100 mg PO BID 03/06/24 08/20/24 empagliflozin 25 mg tablet 25 mg PO DAILY 03/06/24 08/20/24 (Jardiance) insulin glargine 100 unit/mL (3 41 unit SUBCUT DAILY 03/06/24 08/20/24 mL) subcutaneous pen memantine 5 mg tablet 5 mg PO BID 03/06/24 08/20/24 pantoprazole 40 mg tablet,delayed 40 mg PO DAILY 03/06/24 08/20/24 release potassium chloride 10 mEq 10 meq PO DAILY 03/06/24 08/20/24 tablet,extended release tamsulosin 0.4 mg capsule 0.4 mg PO DAILY 03/06/24 08/20/24 Previous Rx's ?Medication ?Instructions ?Recorded nitroglycerin 0.4 mg sublingual 0.4 mg sublingual Q5M PRN chest 02/25/23 tablet pain #30 tabs metoprolol succinate 25 mg 12.5 mg (1/2 x 25 mg) PO DAILY #30 06/11/23 tablet,extended release 24 hr tabs (Toprol XL) divalproex 500 mg tablet,extended 1,000 mg (2 x 500 mg) PO DAILY 02/05/24 release 24 hr (Depakote ER) #180 tabs aspirin 81 mg tablet,delayed 81 mg PO DAILY #30 tabs 03/08/24 release atorvastatin 40 mg tablet 40 mg PO QPM #90 tabs 03/08/24 clopidogrel 75 mg tablet 75 mg PO DAILY #30 tabs 03/08/24 erenumab-aooe 140 mg/mL 140 mg SUBCUT ONCE #1 mL 04/22/24 subcutaneous auto-injector (Aimovig Autoinjector) varenicline tartrate 1 mg tablet 1 mg PO BID #56 tabs 04/22/24 (Chantix Continuing Month Box) varenicline tartrate 1 mg tablet 1 mg PO BID #60 tabs 04/22/24 (Chantix) Allergies Allergy/AdvReac Type Severity Reaction Status Date / Time adhesive tape Allergy ALGY-Rash Verified 11/19/24 17:08 Review of Systems Const: Denies: fever(s) or chills Card: Reports: chest pain, palpitations, swelling of feet/ankles, dyspnea on exertion and orthopnea Resp: Denies: dyspnea GI: Denies: abdominal pain : Denies: dysuria, urinary frequency or urinary urgency Musc: Denies: neck pain or back pain Skin/Breast: Denies: rash PFSH ED PFSH: Medical History PAD (peripheral artery disease) Unstable angina Unstable angina Tobacco abuse NSTEMI (non-ST elevated myocardial infarction) Systolic CHF with reduced left ventricular function, NYHA class 2 Bilateral carotid artery stenosis Erectile dysfunction Urinary retention Cutaneous wart Current smoker JENAE on CPAP Acute cystitis without hematuria Phimosis BPH NOS w ur obs/LUTS COPD (chronic obstructive pulmonary disease) Hypertension Diabetes Complex partial epilepsy with generalization Myocardial infarct Chronic headache CAD (coronary artery disease) Balanitis Surgical History History of cardiac catheterization H/O heart artery stent S/P carotid endarterectomy H/O circumcision History of laparotomy History of appendectomy History of coronary artery bypass graft Family History Mother , at age 103 No problems noted. Father , at age 89 Congestive heart failure (CHF) Other CAD (coronary artery disease) Hypertension Mesothelioma Social History Smoking and tobacco/nicotine status: current every day tobacco/nicotine user cigarettes Packs smoked per day: 1.5 Years cigarettes smoked: 52 [ Other cigarette details: was 2ppd] Alcohol intake: never Substance/Drug Use: never Marital status: service: Yes Current occupational status: retired and disabled Do you think of yourself as: Straight/Heterosexual Physical Exam Const: GENERAL APPEARANCE: cooperative ORIENTATION/CONSCIOUSNESS: Yes awake HENMT: COMMON NORMALS: normocephalic, atraumatic and hearing grossly normal bilaterally HEAD & SCALP: normocephalic and atraumatic Resp: COMMON NORMALS: normal respiratory effort, No retractions and No use of accessory muscles AUSCULTATION: rales Cardio: COMMON NORMALS: regular rate, regular rhythm and No murmurs present (Cardio) RATE: regular rate RHYTHM: regular rhythm GI: COMMON NORMALS: Soft to palpation and No hepatosplenomegaly present AUSCULTATION: Yes normoactive bowel sounds PALPATION: Yes Soft to palpation, No Tenderness to palpation present (GI), No Guarding due to palpation present (GI) and Yes No hepatosplenomegaly present Extremity: COMMON NORMALS: normal to inspection, capillary refill normal, no clubbing, cyanosis or edema, no calf tenderness and no pedal edema Skin: COMMON NORMALS: no rashes or lesions noted GENERAL SKIN EXAM: no rashes or lesions noted Course Vital Signs: Vital signs: Vital Signs Temperature 98.2 F 11/19/24 17:03 Pulse Rate 55 L 11/19/24 17:26 Respiratory Rate 17 11/19/24 17:26 Blood Pressure 133/66 11/19/24 17:26 Pulse Oximetry 93 11/19/24 17:26 Oxygen Delivery Me thod Room Air 11/19/24 17:03 MDM - SOB/Dyspnea Lab Data 11/19/24 17:25 11/19/24 17:25 Labs/Radiology: Laboratory Results WBC 6.11 10^3/uL (3.29-11.43) 11/19/24 17: RBC 3.66 10^6/uL (3.85-5.65) L 11/19/24 17:25 Hgb 10.30 g/dL (11.27-16.99) L 11/19/24 17:25 Hct 34.3 % (37-53) L 11/19/24 17:25 MCV 93.7 fl (82-101) 11/19/24 17:25 MCH 28.1 pg (27-33) 11/19/24 17:25 MCHC 30.0 g/dL (30-55) 11/19/24 17:25 RDW 15.9 % (12.1-15.1) H 11/19/24 17:25 Plt Count 194 10^3/cmm (157-399) 11/19/24 17:25 MPV 9.6 fL (7.4-10.4) 11/19/24 17:25 Neut % (Auto) 63.5 % 11/19/24 17:25 Lymph % (Auto) 18.7 % 11/19/24 17:25 Whitman % (Auto) 9.2 % 11/19/24 17:25 Eos % (Auto) 7.2 % 11/19/24 17:25 Baso % (Auto) 0.7 % 11/19/24 17: Neut # (Auto) 3.89 10^3/uL (1.8-7.7) 11/19/24 17:25 Lymph # (Auto) 1.1 10^3/uL (0.8-4.8) 11/19/24 17:25 Whitman # (Auto) 0.6 10^3/uL (0.2-0.9) 11/19/24 17:25 Eos # (Auto) 0.4 10^3/uL (0.0-0.8) 11/19/24 17:25 Baso # (Auto) 0.0 10^3/uL (0.0-0.1) 11/19/24 17:25 Nucleated RBC % (auto) 0 % 11/19/24 17:25 Nucleated RBCs # 0.0 /100WBC 11/19/24 17:25 Discharge Plan Discharge Condition: Stable Prescriptions: No Action divalproex [Depakote ER] 500 mg tablet extended release 24 hr 1,000 mg PO DAILY Qty: 180 3RF nitroglycerin 0.4 mg tablet, sublingual 0.4 mg sublingual Q5M PRN (Reason: chest pain) Qty: 30 6RF Rx Instructions: do not exceed 3 doses per episode Aimovig Autoinjector 140 mg/mL auto-injector 140 mg SUBCUT ONCE Qty: 1 4RF varenicline tartrate [Chantix] 1 mg tablet 1 mg PO BID Qty: 60 0RF Rx Instructions: 1/2 in AM 7 d, 1 in am 7 d, then 1 AM 1 after lunch varenicline tartrate [Chantix Continuing Month Box] 1 mg tablet 1 mg PO BID Qty: 56 0RF gabapentin 400 mg capsule 400 mg PO TID furosemide 20 mg tablet 20 mg PO QAM metoprolol succinate [Toprol XL] 25 mg tablet extended release 24 hr 12.5 mg PO DAILY Qty: 30 0RF sucralfate 1 gram tablet 1 g PO DAILY insulin glargine 100 unit/mL (3 mL) insulin pen 41 unit SUBCUT DAILY potassium chloride 10 mEq Tablet Extended Release 10 meq PO DAILY tamsulosin 0.4 mg Capsule 0.4 mg PO DAILY pantoprazole 40 mg Tablet,Delayed Release (Dr/Ec) 40 mg PO DAILY docusate sodium 100 mg Tablet 100 mg PO BID memantine 5 mg Tablet 5 mg PO BID Jardiance 25 mg Tablet 25 mg PO DAILY albuterol sulfate 90 mcg/actuation Aerosol Powdr Breath Activated 1 inh INHALATION QID atorvastatin 40 mg tablet 40 mg PO QPM Qty: 90 0RF clopidogrel 75 mg tablet 75 mg PO DAILY Qty: 30 0RF aspirin 81 mg Tablet,Delayed Release (Dr/Ec) 81 mg PO DAILY Qty: 30 0RF Referrals: Portia Lawrence MD [Primary Care Provider, Family Practice] Print Language: Tristanian Coding Level of Care Code ED 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
[2024-11-19 17:35] LABS: Hematocrit 34.3 % (37-53); Hemoglobin 10.30 g/dL (11.27-16.99); Mean Corpuscular HGB Conc 30.0 g/dL (30-55); Mean Corpuscular Hemoglobin 28.1 pg (27-33); Mean Corpuscular Volume 93.7 fl (82-101); Nucleated Red Blood Cells % 0 %; Platelet Count 194 10^3/cmm (157-399); Red Blood Count 3.66 10^6/uL (3.85-5.65); White Blood Count 6.11 10^3/uL (3.29-11.43)
--- NOTE | 2024-11-19 17:43 | CTR_ITS ---
PROCEDURE INFORMATION: Exam: CT Head Without Contrast Exam date and time: 11/19/2024 6:15 PM Age: 74 years old Clinical indication: Altered mental status/memory loss; Confusion or disorientation; Additional info: Confused disoriented TECHNIQUE: Imaging protocol: Computed tomography of the head without contrast. Radiation optimization: All CT scans at this facility use at least one of these dose optimization techniques: automated exposure control; mA and/or kV adjustment per patient size (includes targeted exams where dose is matched to clinical indication); or iterative reconstruction. COMPARISON: CT head wo con* [id number] 10/18/2023 2:59 PM RADIATION DOSE METRICS: Total DLP (mGy-cm): 1152.28 FINDINGS: Brain: See Cerebral ventricles finding. Cerebral ventricles: Few lacunar foci, nonspecific although commonly chronic. Mild involutional changes of the ventricles and sulci. Paranasal sinuses: Visualized sinuses are unremarkable. No fluid levels. Mastoid air cells: Visualized mastoid air cells are well aerated. Bones: Unremarkable. No acute fracture. Soft tissues: Unremarkable. CT/CT head wo con* [id number] IMPRESSION: No definite acute intracranial abnormality.
[2024-11-19 17:50] LABS: Troponin(5th) Baseline 34 ng/L (0-15)
[2024-11-19 17:52] LABS: Alanine Aminotransferase 6 U/L (0-41); Albumin Level 3.7 g/dL (3.5-5.2); Alkaline Phosphatase 87 U/L (40-130); Anion Gap 14.4 (5-19); Aspartate Amino Transferase 11 U/L (0-40); Blood Urea Nitrogen 22 mg/dL (8-23); Calcium 8.3 mg/dL (8.5-10.5); Carbon Dioxide 28 mmol/L (22-29); Chloride 108 mmol/L (98-107); Creatinine Clr Calc Pharmacy 63.1400; Globulin 2.3 g/dL (1.3-4.6); Glucose 196 mg/dL (65-115); Osmolality Calculated 311 mOsm/kg (285-295); Potassium 4.4 mmol/L (3.5-5.1); Sodium 146 mmol/L (136-145); Total Protein 6.0 g/dL (6.6-8.7)
[2024-11-19 18:18] LABS: NT Pro B Type Natriuretic Pept 3103 pg/mL (0-125); Procalcitonin 0.07 ng/mL (0-0.5)
--- NOTE | 2024-11-19 19:14 | ECG_ITS ---
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 Measurements Intervals [place] Rate: 72 P: 96 AK: 152 QRS: 60 QRSD: 123 T: 212 QT: 432 QTc: 475 Interpretive Statements SINUS RHYTHM MODERATE INTRAVENTRICULAR CONDUCTION DELAY [105+ ms QRS DURATION, 80+ ms Q/S IN V1/V2, NO Q AND 60+ ms R IN I/aVL/V5/V6] ST DEVIATION AND MODERATE T-WAVE ABNORMALITY, CONSIDER LATERAL ISCHEMIA [-0.1+ mV T-WAVE IN I/aVL/V5/V6] ST DEVIATION AND MODERATE T-WAVE ABNORMALITY, CONSIDER INFERIOR ISCHEMIA [-0.1+ mV T-WAVE IN II/aVF] Compared to ECG 11/19/2024 17:05:57 No significant changes Electronically Signed On 11-20-2024 14:02:02 CDT by Luisito Barajas M.D. [email or web address]
[2024-11-19 19:58] LABS: Troponin 5 2HR 31.44 ng/L (0-15)
[2024-11-19 20:00] LABS: Troponin 5 2HR Delta -2.56 ABS# (0-10)
--- NOTE | 2024-11-19 20:30 | USR_ITS ---
PROCEDURE INFORMATION: Exam: US Duplex Lower Extremity Veins, Bilateral Exam date and time: 11/19/2024 9:11 PM Age: 74 years old Clinical indication: Edema, localized; Lower extremity, bilateral; Prior surgery; Surgery date: 6+ months; Surgery type: Left leg stent placement February 2024. Patient is a very poor historian. Extreme SOB, feels like he is choking; Additional info: Swelling TECHNIQUE: Imaging protocol: Real-time duplex ultrasound of the bilateral extremities with 2-D araiza scale, color Doppler flow and spectral waveform analysis including responses to compression and other maneuvers (when performed) with image documentation. Complete exam focused on the lower extremity veins. COMPARISON: CT angio abd aorta runof [id number] 07/10/2024 1:08 PM FINDINGS: Right deep veins: On the right, proximal femoral vein demonstrates mural thickening, possibly due to chronic changes from old DVT, acute on chronic clot not totally excluded. Otherwise Unremarkable. The common femoral, femoral, proximal profunda femoral and popliteal veins are patent without thrombus. Normal Doppler waveforms. Normal compressibility and/or augmentation response. Left deep veins: Unremarkable. The common femoral, femoral, proximal profunda femoral and popliteal veins are patent without thrombus. Normal Doppler waveforms. Normal compressibility and/or augmentation response. Superficial veins: Greater saphenous veins at the saphenofemoral junctions are patent bilaterally without thrombus. Soft tissues: Unremarkable. US/[place] [id number] IMPRESSION: On the right, proximal femoral vein demonstrates mural thickening, possibly due to chronic changes from old DVT, although acute on chronic clot not totally excluded. No definite acute occlusive DVT.
--- NOTE | 2024-11-19 20:30 | CTR_ITS ---
PROCEDURE INFORMATION: Exam: CTA Chest With Contrast Exam date and time: 11/19/2024 8:48 PM Age: 74 years old Clinical indication: Dyspnea; Additional info: SOB TECHNIQUE: Imaging protocol: Computed tomographic angiography of the chest with contrast. Exam focused on the arteries. 3D rendering (Not supervised by radiologist): MIP and/or 3D reconstructed images were created by the technologist. Radiation optimization: All CT scans at this facility use at least one of these dose optimization techniques: automated exposure control; mA and/or kV adjustment per patient size (includes targeted exams where dose is matched to clinical indication); or iterative reconstruction. Contrast material: OMNI 350; Contrast volume: 77 ml; Contrast route: INTRAVENOUS (IV); COMPARISON: CR (CHEST, ) 11/19/2024 5:17 PM RADIATION DOSE METRICS: Total DLP (mGy-cm): 536.64 FINDINGS: Pulmonary arteries: Normal. No pulmonary emboli. Great vessels off aortic arch: Stent in the left common carotid. Aorta: Aortic and coronary atherosclerosis. Lungs: Unremarkable. No consolidation. No masses. Pleural spaces: Vfkj-fj-vvjhrlad bilateral pleural effusions, simple appearing. Heart: Post cardiac surgery residuals. Lymph nodes: Unremarkable. No enlarged lymph nodes. Bones/joints: Moderate to severe degenerative changes of vertebral bodies with multilevel endplate spurring and disc space narrowing, likely DISH. Soft tissues: Clips in the left neck adjacent to thyroid. Other findings: Motion artifact limits exam. CT/CT angio chest PE protcl [id number] IMPRESSION: No definitive radiographic evidence of pulmonary embolism. Aortic and coronary atherosclerosis. Qvhe-yg-mescocyt bilateral pleural effusions, simple appearing.
--- NOTE | 2024-11-19 20:33 | PM.HP ---
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 History of Present Illness Junior Andersen is a 74 year old male with a past medical history of type 2 diabetes mellitus, hypertension, hyperlipidemia -Recent history of bilateral carotid artery stenting -During that hospitalization he reports that he had a stroke, with right-sided deficits, slurring of his words, with residual right lower extremity weakness, slurring of his words -During that hospitalization he was also told that he heart attack -He spent 3 days in the ICU -He does report having hospitalization, hemoglobin down to 8, but did not require blood transfusion -He has followed up from vascular surgery a few days ago had vascular imaging of his neck he tells me he and Dr. Finney, advised the family that there was no acute issues -He lives at home with his -He has been complaining of increased shortness of breath, orthopnea, paroxysmal nocturnal dyspnea, bilateral lower extremity weakness -Denies any fevers, chills, dysuria no abdominal pain -Denies any chest pain -Does report dizziness, intermittently, -No worsening of his right lower extremity weakness, or right arm weakness, worsening of his slurring of his words -No other focal neurologic deficits, no blurry vision, no recent falls -But does report generalized weakness, fatigue, malaise, decreased ambulation Review of Systems Card: Denies: chest pain Resp: Reports: dyspnea : Denies: flank pain Neuro: Denies: headache(s) Medications/Allergies Home Medications ?Medication ?Instructions ?Recorded ?Confirmed ?Last Taken ?Type gabapentin 400 mg capsule 400 mg PO TID 12/13/22 08/20/24 07/29/24 20:00 History nitroglycerin 0.4 mg sublingual 0.4 mg sublingual Q5M PRN chest 02/25/23 08/20/24 Unknown Rx tablet pain #30 tabs furosemide 20 mg tablet 20 mg PO QAM 04/19/23 08/20/24 07/29/24 08:00 History metoprolol succinate 25 mg 12.5 mg (1/2 x 25 mg) PO DAILY #30 06/11/23 08/20/24 07/29/24 08:00 Rx tablet,extended release 24 hr tabs (Toprol XL) sucralfate 1 gram tablet 1 g PO DAILY 06/17/23 08/20/24 07/29/24 08:00 History divalproex 500 mg tablet,extended 1,000 mg (2 x 500 mg) PO DAILY 02/05/24 08/20/24 07/29/24 08:00 Rx release 24 hr (Depakote ER) #180 tabs albuterol sulfate 90 mcg/actuation 1 inh inhalation QID 03/06/24 08/20/24 07/29/24 20:00 History breath activated powder inhaler docusate sodium 100 mg tablet 100 mg PO BID 03/06/24 08/20/24 07/29/24 08:00 History empagliflozin 25 mg tablet 25 mg PO DAILY 03/06/24 08/20/24 07/29/24 08:00 History (Jardiance) insulin glargine 100 unit/mL (3 41 unit SUBCUT DAILY 03/06/24 08/20/24 07/29/24 08:00 History mL) subcutaneous pen memantine 5 mg tablet 5 mg PO BID 03/06/24 08/20/24 07/29/24 20:00 History pantoprazole 40 mg tablet,delayed 40 mg PO DAILY 03/06/24 08/20/24 07/29/24 08:00 History release potassium chloride 10 mEq 10 meq PO DAILY 03/06/24 08/20/24 07/29/24 08:00 History tablet,extended release tamsulosin 0.4 mg capsule 0.4 mg PO DAILY 03/06/24 08/20/24 07/29/24 08:00 History aspirin 81 mg tablet,delayed 81 mg PO DAILY #30 tabs 03/08/24 08/20/24 07/29/24 08:00 Rx release atorvastatin 40 mg tablet 40 mg PO QPM #90 tabs 03/08/24 08/20/24 07/29/24 20:00 Rx clopidogrel 75 mg tablet 75 mg PO DAILY #30 tabs 03/08/24 08/20/24 07/29/24 08:00 Rx erenumab-aooe 140 mg/mL 140 mg SUBCUT ONCE #1 mL 04/22/24 08/20/24 Unknown Rx subcutaneous auto-injector (Aimovig Autoinjector) varenicline tartrate 1 mg tablet 1 mg PO BID #56 tabs 04/22/24 08/20/24 Unknown Rx (Chantix Continuing Month Box) varenicline tartrate 1 mg tablet 1 mg PO BID #60 tabs 04/22/24 08/20/24 Unknown Rx (Chantix) Allergies Allergy/AdvReac Type Severity Reaction Status Date / Time adhesive tape Allergy ALGY-Rash Verified 11/19/24 17:08 PFSH Acute PFSH: Medical History PAD (peripheral artery disease) Unstable angina Unstable angina Tobacco abuse NSTEMI (non-ST elevated myocardial infarction) Systolic CHF with reduced left ventricular function, NYHA class 2 Bilateral carotid artery stenosis Erectile dysfunction Urinary retention Cutaneous wart Current smoker JEANE on CPAP Acute cystitis without hematuria Phimosis BPH NOS w ur obs/LUTS COPD (chronic obstructive pulmonary disease) Hypertension Diabetes Complex partial epilepsy with generalization Myocardial infarct Chronic headache CAD (coronary artery disease) Balanitis Surgical History History of cardiac catheterization H/O heart artery stent S/P carotid endarterectomy H/O circumcision History of laparotomy History of appendectomy History of coronary artery bypass graft Family History Mother , at age 103 No problems noted. Father , at age 89 Congestive heart failure (CHF) Other CAD (coronary artery disease) Hypertension Mesothelioma Social History Smoking and tobacco/nicotine status: current every day tobacco/nicotine user cigarettes Packs smoked per day: 1.5 Years cigarettes smoked: 52 [ Other cigarette details: was 2ppd] Alcohol intake: never Substance/Drug Use: never Marital status: service: Yes Current occupational status: retired and disabled Do you think of yourself as: Straight/Heterosexual Vitals/I&O/Wt Last Vital Signs Temp 98.2 F 11/19/24 17:03 Pulse 50 L 11/19/24 20:00 Resp 20 H 11/19/24 20:00 BP 152/62 11/19/24 20:00 Pulse Ox 97 11/19/24 20:00 O2 Del Method Room Air 11/19/24 17:03 11/19/24 11/19/24 11/19/24 06:59 14:59 22:59 Intake Total 0 / 0 Balance 0 / 0 Weight last 48 hrs Weight 104.326 kg Physical Exam Const: COMMON NORMALS: no acute distress and patient oriented x3 HENMT: COMMON NORMALS: normocephalic HEAD & SCALP: normocephalic Eye: COMMON NORMALS: Equal, round and reactive pupils present and EOMs intact bilaterally Neck/C-Spine: COMMON NORMALS: no JVD Resp: COMMON NORMALS: normal respiratory effort, No retractions and No use of accessory muscles AUSCULTATION: crackles and wheezes Cardio: COMMON NORMALS: regular rate, regular rhythm, S1 normal heart sound present and S2 normal heart sound present RATE: regular rate RHYTHM: regular rhythm HEART SOUNDS: S1 normal heart sound present and S2 normal heart sound present GI: COMMON NORMALS: Normal to inspection, nondistended, normoactive bowel sounds present, Soft to palpation and non-tender Extremity: NARRATIVE EXTREMITY EXAM: 2+ pitting edema Neuro: COMMON NORMALS: patient oriented x3, CN's II-XII intact bilaterally, moves all extremities and no focal motor deficits OTHER: Very mild right lower extremity weakness, does have slurring of his words, no facial droop, no visual deficits Psych: COMMON NORMALS: mental status grossly normal Skin: NARRATIVE SKIN EXAM: Anasarca Data 11/19/24 17:25 11/19/24 17:25 A&P Assessment and plan 1. Acute hypoxic respiratory failure: 2. Bilateral carotid artery stenosis: 3. History of CVA (cerebrovascular accident): 4. Dizziness: Plan: Acute hypoxic respiratory failure - Potentially related to diastolic CHF - Concern for hypercoagulable event given recent history, of surgery, immobility ordered a CT angiogram of the chest - No fevers, or chills, no leukocytosis but will order CRP and Pro-Jones Plan - Lasix 40 IV twice daily - Monitor potassium, monitor creatinine - Monitor respiratory status closely - Cardiac echo - Workup as above NSTEMI - he was told that she was at [facility], that he had a heart attack? - Aspirin, statin, Plavix, beta-theresa - Cardiac echo - Telemetry monitoring History of bilateral carotid artery stenosis status post bilateral stenting - Carotid artery ultrasound - Aspirin, Plavix, statin Recent history of CVA - Residual right lower extremity weakness, with slurring of his words - This happened during his bilateral carotid artery stenosis stenting - Continue aspirin, Plavix, statin - Follow head CT - Ordered cardiac echo Dizziness - Head CT, cardiac echo, carotid artery ultrasound Type 2 diabetes mellitus, low-dose sliding scale History of peripheral vascular disease History of GI bleed, history of anemia - Protonix, Carafate, iron studies Full code Lovenox for DVT prophylaxis PDMP PDMP Reviewed: Not Reviewed Attestations Medical Necessity Statement*: Patient requires hospitalization, inpatient, greater than 2 midnights for acute hypoxic respiratory failure, dizziness Diagnoses Acute hypoxic respiratory failure J96.01 Bilateral carotid artery stenosis I65.23 History of CVA (cerebrovascular accident) Z86.73 Dizziness R42
[2024-11-19] MEDS: iohexol 350 mg/mL 500 mL Btl (per mL) IV (20:53)
[2024-11-19] MEDS: diphenhydrAMINE 50 mg/mL SDV 1mL 25 MG IVP (21:42)
[2024-11-19] MEDS: sucralfate 1 gm/10 mL Oral Liq UDC PO (21:42)
[2024-11-19 22:27] LABS: Cholesterol 113 mg/dL (0-200); HDL Cholesterol 33 mg/dL (60-100); Triglycerides 111 mg/dL (0-150)
[2024-11-19] MEDS: FUROsemide 10 mg/mL SDV 4mL 40 MG IVP (22:30)
[2024-11-19] MEDS: pantoprazole 40 mg SDV IVP (22:30)
[2024-11-19 22:32] LABS: Procalcitonin 0.07 ng/mL (0-0.5)
--- NOTE | 2024-11-19 23:18 | ECG_ITS ---
[employer] Test Date: 2024-11-19 Pat Name: Junior Andersen Department: Room: 104 Gender: Male Supervisor Research Shop: : 1950 Requested By: Foster Aguilar Order Number: [id number] Carmela MD: Luisito Barajas M.D. Measurements Intervals [place] Rate: 67 P: 70 UT: 138 QRS: 26 QRSD: 120 T: 152 QT: 425 QTc: 449 Interpretive Statements SINUS RHYTHM MODERATE INTRAVENTRICULAR CONDUCTION DELAY [105+ ms QRS DURATION, 80+ ms Q/S IN V1/V2, NO Q AND 60+ ms R IN I/aVL/V5/V6] ST DEVIATION AND MODERATE T-WAVE ABNORMALITY, CONSIDER LATERAL ISCHEMIA [-0.1+ mV T-WAVE IN I/aVL/V5/V6] Compared to ECG 11/19/2024 19:17:19 No significant changes Electronically Signed On 11-20-2024 13:59:44 CDT by Luisito Barajas M.D. [email or web address]
[2024-11-19 23:25] LABS: Glucose Urine UA Negative (Normal); Nitrate Urine Negative (Negative)
[2024-11-19 23:31] LABS: Add Urine Microscopic? YES
[2024-11-19 23:33] LABS: Specific Gravity, Urine 1.047 (1.005-1.030)
[2024-11-19 23:36] LABS: Ferritin 84 ng/mL (30-400); Iron 36 ug/dL (59-158)
[2024-11-19 23:40] LABS: Troponin 5 6HR 32.61 ng/L (0-15)
[2024-11-19 23:41] LABS: Lactic Sepsis W/Reflex 0.9 mmol/L (0.5-2.2)
[2024-11-19 23:47] LABS: Troponin 5 6HR Delta -1.39 ng/L (0-12)
[2024-11-20] VITALS: BP 140/65; PULSE 58; RESP 25; TEMP 36.8; O2SAT 93
--- OUTSIDE RECORDS SUMMARY | 2024-11-20 00:06 | XMS_ITS | Patient Health Record ---
Author Organization [facility] Address [address] [place], [place] [id number] Care Team Providers Care Commercial Account Executive Name Role Phone Wilfred Knight Primary Care Provider Raulito Palafox MD, Zay Unavailable [phone] Reason For Referral No Information Medications Medication [...] Insured Coverage Start Date Coverage End Date [facility] Lior [address] [place] [address] [phone] Junior Andersen Self - patient is the [...]
--- OUTSIDE RECORDS SUMMARY | 2024-11-20 00:07 | XMS_ITS | Patient Health Record ---
Author Organization [facility] Address [address] [place] [address] Care Team Providers Care Catering And Events Manager Name Role Phone JOSE OWENS [phone] Allergies Allergen (clinical drug ingredient) Drug/Non Drug [...] Status Risk Notes Problem Erectile dysfunction (disorder) (235125659) ED (erectile dysfunction) (N52.9) Active confirmed Problem History of gross hematuria (Z87.448) Active confirmed Problem Family history of bladder cancer (278276702) Family history of bladder cancer (Z80.52) Active confirmed Problem Urinary retention (640912177) Urinary retention (R33.9) Active confirmed Problem Benign prostatic hypertrophy with outflow obstruction (556104226) BPH loc w urin obs/LUTS (N40.1) Active confirmed Plan Of Treatment Pending Test Test Name Order Date CT Abd & Pelvis W & [place] contrast [id number] 03/14/2023 Bladder Scan 03/14/2023 Insurance Providers Payer Name Payer Address Payer Phone Subscriber Number Group Number Insured Name Patient Relationship to Insured Coverage Start Date Coverage End Date [employer] [address] [place] [id number] Junior Andersen Self - patient is the insured Medical (General) History Medical History History ICD Code anxiety arthropathy CAD cervicalgia hx chest pain COPD chronic pain syndrome chronic pulmonary edema compression fx thoracic hypertension heart failure hematuria hx of hyperlipidemia ED seizuresTIAs diabetes Surgical History Surgery Date(Month/Year) carotid endarterectomy CABG 2004 heart stents 11/2022 appendectomy
[2024-11-20] MEDS: sucralfate 1 gm/10 mL Oral Liq UDC PO ×3 (02:44→14:07)
[2024-11-20 04:54] VITALS: BP 152/69; PULSE 69; RESP 20; O2SAT 90
[2024-11-20 05:21] LABS: Hematocrit 32.2 % (37-53); Hemoglobin 9.50 g/dL (11.27-16.99); Mean Corpuscular HGB Conc 29.5 g/dL (30-55); Mean Corpuscular Hemoglobin 27.1 pg (27-33); Mean Corpuscular Volume 91.7 fl (82-101); Nucleated Red Blood Cells % 0 %; Platelet Count 176 10^3/cmm (157-399); Red Blood Count 3.51 10^6/uL (3.85-5.65); White Blood Count 5.38 10^3/uL (3.29-11.43)
[2024-11-20 05:42] VITALS: RESP 23; O2SAT 95
[2024-11-20] MEDS: morphine 4 mg/mL SDV 1 mL 1 MG IVP (05:42)
--- NOTE | 2024-11-20 05:42 | ECG_ITS ---
[employer] Test Date: 2024-11-20 Pat Name: Junior Andersen Department: Room: 112 Gender: Male Finish Mender: : 1950 Requested By: Angelina Lofton Order Number: [id number] Carmela MD: Luisito Barajas M.D. Measurements Intervals [place] Rate: 63 P: 0 MA: 0 QRS: 29 QRSD: 126 T: 205 QT: 435 QTc: 448 Interpretive Statements Sinus rhythm with a sinus arrhythmia MODERATE INTRAVENTRICULAR CONDUCTION DELAY [105+ ms QRS DURATION, 80+ ms Q/S IN V1/V2, NO Q AND 60+ ms R IN I/aVL/V5/V6] ST DEVIATION AND MODERATE T-WAVE ABNORMALITY, CONSIDER LATERAL ISCHEMIA [-0.1+ mV T-WAVE IN I/aVL/V5/V6] Compared to ECG 11/19/2024 23:18:25 Sinus rhythm no longer present T-wave abnormality still present Possible ischemia still present Electronically Signed On 11-20-2024 13:45:47 CDT by Luisito Barajas M.D. [email or web address]
[2024-11-20 05:43] LABS: Alanine Aminotransferase 6 U/L (0-41); Albumin Level 3.4 g/dL (3.5-5.2); Alkaline Phosphatase 79 U/L (40-130); Anion Gap 12.1 (5-19); Aspartate Amino Transferase 9 U/L (0-40); Blood Urea Nitrogen 20 mg/dL (8-23); Calcium 8.5 mg/dL (8.5-10.5); Carbon Dioxide 31 mmol/L (22-29); Chloride 107 mmol/L (98-107); Creatinine Clr Calc Pharmacy 64.9856; Globulin 3.5 g/dL (1.3-4.6); Glucose 179 mg/dL (65-115); Osmolality Calculated 309 mOsm/kg (285-295); Potassium 4.1 mmol/L (3.5-5.1); Sodium 146 mmol/L (136-145); Total Protein 6.9 g/dL (6.6-8.7)
[2024-11-20 05:53] LABS: NT Pro B Type Natriuretic Pept 3472 pg/mL (0-125)
[2024-11-20 07:38] VITALS: BP 167/63; PULSE 60; RESP 16; TEMP 36.6; O2SAT 96
--- NOTE | 2024-11-20 08:54 | PM.PN ---
Vitals/I&O/Wt Last Vital Signs Temp 97.8 F 11/20/24 07:38 Pulse 60 11/20/24 07:38 Resp 16 11/20/24 07:38 BP 167/63 11/20/24 07:38 Pulse Ox 96 11/20/24 07:38 O2 Del Method Nasal Cannula 11/20/24 07:38 11/19/24 11/20/24 11/20/24 22:59 06:59 14:59 Intake Total 50 / 50 Output Total 0 / 0 3000 / 3000 Balance 50 / 50 -3000 / -2950 Weight last 48 hrs Weight 110.677 kg Weight 108.227 kg Weight 112.633 kg Weight 104.326 kg Physical Exam Narrative: General: Alert oriented x3, HEENT: Normocephalic, atraumatic, EOMI, Cardio: Regular rate rhythm, normal S1-S2, no murmurs rubs gallops, JVD Respiratory: Good bilateral air entry, no wheezes no rhonchi appreciated GI: Abdomen soft, nontender, nondistended, normoactive bowel sounds present all 4 quadrants, Neuro: Cranial nerves II to XII intact, strength 5/5, sensation 5/5, no gross neurological deficit Behavior: Appropriate and cooperative Extremities: Pulses 2+, no edema, no cyanosis Skin: Visible skin intact, no rashes Data 11/20/24 05:11 11/20/24 05:11 A&P Assessment and plan 1. Acute hypoxic respiratory failure: 2. Bilateral carotid artery stenosis: 3. History of CVA (cerebrovascular accident): 4. Dizziness: Plan: Acute hypoxic respiratory failure - Potentially related to diastolic CHF - Concern for hypercoagulable event given recent history, of surgery, immobility ordered a CT angiogram of the chest - No fevers, or chills, no leukocytosis but will order CRP and Pro-Jones Plan - Lasix 40 IV twice daily - Monitor potassium, monitor creatinine - Monitor respiratory status closely - Cardiac echo - Workup as above NSTEMI - he was told that she was at [facility], that he had a heart attack?, Troponins rise are not concerning or significant - Aspirin, statin, Plavix, beta-theresa - Cardiac echo - Telemetry monitoring History of bilateral carotid artery stenosis status post bilateral stenting - Carotid artery ultrasound - Aspirin, Plavix, statin Recent history of CVA: - Residual right lower extremity weakness, with slurring of his words - Continue aspirin, Plavix, statin - CT head unremarkable - Follow cardiac echo Dizziness - Head CT, cardiac echo, carotid artery ultrasound Type 2 diabetes mellitus, low-dose sliding scale History of peripheral vascular disease History of GI bleed, history of anemia - Protonix, Carafate, iron studies Full code Lovenox for DVT prophylaxis PDMP PDMP Reviewed: Not Reviewed Attestations Medical Necessity Statement*: The patient will stay for the management of his acute hypoxic failure and awaiting diagnostic test Time Spent in Patient Care: Greater than 35 minutes (>than 50% of time spent in counselling and/or direct pt care on unit). Coding Level of Care Code 09738 Diagnoses Acute hypoxic respiratory failure J96.01 Bilateral carotid artery stenosis I65.23 History of CVA (cerebrovascular accident) Z86.73 Dizziness R42
[2024-11-20] MEDS: FUROsemide 10 mg/mL SDV 4mL 40 MG IVP (09:10)
[2024-11-20] MEDS: pantoprazole 40 mg SDV IVP (09:11)
[2024-11-20] MEDS: metoprolol succinate ER (24 HR) 25 mg Tablet 12.5 MG PO (09:11)
[2024-11-20] MEDS: divalproex ER 500 mg Tablet (24H) 1000 MG PO (09:12)
[2024-11-20 12:00] VITALS: BP 144/57; PULSE 54; RESP 20; O2SAT 94
--- NOTE | 2024-11-20 14:05 | PM.DCS ---
Discharge Providers Date of Admission: 11/19/24 18:37 Date of Discharge: November 20, 2024 Attending Provider at Admission: Angelina Lofton MD Attending Provider at Discharge: Kirby Velasco MD Primary Care Provider: Portia Lawrence MD Diagnoses at Discharge Discharge Diagnosis 1. Acute hypoxic respiratory failure: 2. Bilateral carotid artery stenosis: 3. History of CVA (cerebrovascular accident): 4. Dizziness: 5. Acute on chronic congestive heart failure: 6. Respiratory failure: 7. PAD (peripheral artery disease): 8. Mild cognitive impairment with memory loss: 9. S/P carotid endarterectomy: 10. COPD (chronic obstructive pulmonary disease): 11. 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 The patient is known to have congestive heart failure with reduced ejection fraction of 45% . The symptoms were suggestive of likely heart failure Hospital Course Hospital Course Initial blood investigation did not show any leukocytosis. The patient was having normocytic anemia without any significant blood loss. The patient has baseline creatinine of around 1.3 initial troponins that were not remarkably raised. proBNP was around 3000. Carotid Doppler study did not show significant stenosis, he underwent ultrasound duplex of the lower extremity bilateral and reviewed independently. There was no definite acute occlusive DVT reported. For detailed report refer to the diagnostics. Due to shortness of breath CTA was done and did not show any pulmonary embolism. CT head of the brain did not show any acute pathology and it was done due to concern of recent AMS or memory loss The new echo showed diffuse hypokinesia of the left ventricle ejection fraction with 30% that was reduced from the previous 1. Grade 3 x 4 diastolic dysfunction. He was started on 40 mg IV Lasix and responded well. The dose was switched to 60 mg oral daily. The patient heart rate was around early 50s therefore beta-theresa was not started. Further verbal discussion was done by the cardiology and it was recommended for inpatient further cardiology workup with either stress test and with cardiology consultation. The patient was informed about the plan of care however he preferred to follow with cardiology as outpatient. Patient has reviewed he did not have current any shortness of breath, chest pain. Troponins were not remarkably rise. The EKG was also reviewed and discussed with the cardiology verbally. All the risk and benefits were discussed with the patient and recommendation to stay in the hospital was made. The patient further ask to have an option of early follow-up with the cardiology as outpatient and preferred to go. He was also informed about his current cardiac condition with decreased ejection fraction and risk of arrhythmias and cardiac arrest. He understands all the risk and benefits, adequate counseling was provided without any language barrier Physical Exam Narrative: General: Alert oriented x3, patient seen lying comfortably on the bed without any shortness of breath HEENT: Normocephalic, atraumatic, EOMI, breathing at room air Cardio: Regular rate rhythm, normal S1-S2, no murmurs rubs gallops, JVD normal, Respiratory: Good bilateral air entry, no wheezes no rhonchi appreciated GI: Abdomen soft, nontender, nondistended, normoactive bowel sounds present all 4 quadrants, Neuro: Cranial nerves II to XII intact, strength 5/5, sensation 5/5, no gross neurological deficit Behavior: Appropriate and cooperative Extremities: Trace pedal edema Skin: Visible skin intact, no rashes Discharge Data Studies Completed and Pending Completed Studies During Hospitalization Category Date Time Status CT angio chest PE protcl [id number] Stat Cat Scan 11/19/24 20:[address] head wo con* [id number] Stat Cat Scan 11/19/24 17:43 Completed XR chest 1V portable [id number] Stat Exams 11/19/24 17:14 Completed CV carotid duplex BI* [id number] Routine Ultrasound 11/20/24 21:54 [place] [id number] Routine Ultrasound 11/19/24 20:30 Completed CV. echo complete* [id number] Routine Ultrasound 11/20/24 21:54 Completed Pending at discharge Category Date Time Status Occult Blood Stool [Immunochemical Fecal OCB] Routine Lab 11/19/24 20:30 Uncollected Radiology Impressions Chest X-Ray 11/19/24 17:14 IMPRESSION: No definite acute infiltrate or effusion. Head CT 11/19/24 17:43 IMPRESSION: No definite acute intracranial abnormality. Chest CTA 11/19/24 20:30 IMPRESSION: No definitive radiographic evidence of pulmonary embolism. Aortic and coronary atherosclerosis. Tcnl-sa-kobymcys bilateral pleural effusions, simple appearing. Venous Duplex 11/19/24 20:30 IMPRESSION: On the right, proximal femoral vein demonstrates mural thickening, possibly due to chronic changes from old DVT, although acute on chronic clot not totally excluded. No definite acute occlusive DVT. Laboratory Results WBC 5.38 10^3/uL (3.29-11.43) 11/20/24 05:11 RBC 3.51 10^6/uL (3.85-5.65) L 11/20/24 05:11 Hgb 9.50 g/dL (11.27-16.99) L 11/20/24 05:11 Hct 32.2 % (37-53) L 11/20/24 05:11 MCV 91.7 fl (82-101) 11/20/24 05:11 MCH 27.1 pg (27-33) 11/20/24 05:11 MCHC 29.5 g/dL (30-55) L 11/20/24 05:11 RDW 15.7 % (12.1-15.1) H 11/20/24 05:11 Plt Count 176 10^3/cmm (157-399) 11/20/24 05:11 MPV 9.7 fL (7.4-10.4) 11/20/24 05:11 Neut % (Auto) 63.9 % 11/20/24 05:11 Lymph % (Auto) 17.8 % 11/20/24 05:11 [place] % (Auto) 11.2 % 11/20/24 05:11 Eos % (Auto) 5.6 % 11/20/24 05:11 Baso % (Auto) 0.9 % 11/20/24 05:11 Neut # (Auto) 3.44 10^3/uL (1.8-7.7) 11/20/24 05:11 Lymph # (Auto) 1.0 10^3/uL (0.8-4.8) 11/20/24 05:11 [place] # (Auto) 0.6 10^3/uL (0.2-0.9) 11/20/24 05:11 Eos # (Auto) 0.3 10^3/uL (0.0-0.8) 11/20/24 05:11 Baso # (Auto) 0.1 10^3/uL (0.0-0.1) 11/20/24 05:11 Nucleated RBC % (auto) 0 % 11/20/24 05:11 Nucleated RBCs # 0.0 /100WBC 11/20/24 05:11 Sodium 146 mmol/L (136-145) H 11/20/24 05:11 Potassium 4.1 mmol/L (3.5-5.1) 11/20/24 05:11 Chloride 107 mmol/L (98-107) 11/20/24 05:11 Carbon Dioxide 31 mmol/L (22-29) H 11/20/24 05:11 Anion Gap 12.1 (5-19) 11/20/24 05:11 BUN 20 mg/dL (8-23) 11/20/24 05:11 Creatinine 1.3 mg/dL (0.7-1.2) H 11/20/24 05:11 GFR Calculation Not Reportable 11/20/24 05:11 Glucose 179 mg/dL (65-115) H 11/20/24 05:11 POC Glucose 218 mg/dL (70-110) H 11/20/24 11:12 Calculated Osmolality 309 mOsm/kg (285-295) H 11/20/24 05:11 Lactic Acid 0.9 mmol/L (0.5-2.2) 11/19/24 23:09 Calcium 8.5 mg/dL (8.5-10.5) 11/20/24 05:11 Iron 36 ug/dL (59-158) L 11/19/24 17:25 Ferritin 84 ng/mL (30-400) 11/19/24 17:25 Total Bilirubin 0.3 mg/dL (0.15-1.2) 11/20/24 05:11 AST 9 U/L (0-40) 11/20/24 05:11 ALT 6 U/L (0-41) 11/20/24 05:11 Alkaline Phosphatase 79 U/L (40-130) 11/20/24 05:11 Troponin T Baseline 34 ng/L (0-15) H 11/19/24 17:25 Troponin T 120 Minute 31.44 ng/L (0-15) H 11/19/24 19:34 Delta Troponin T -2.56 ABS# (0-10) L 11/19/24 19:34 Troponin T Hi Sens 6Hr 32.61 ng/L (0-15) H 11/19/24 23:09 Troponin T Hi Sens 6Hr Delta -1.39 ng/L (0-12) L 11/19/24 23:09 C-Reactive Protein 7.3 mg/L (0.0-4.9) H 11/19/24 17:25 NT-Pro-B Natriuret Pep 3472 pg/mL (0-125) H 11/20/24 05:11 Total Protein 6.9 g/dL (6.6-8.7) 11/20/24 05:11 Albumin 3.4 g/dL (3.5-5.2) L 11/20/24 05:11 Globulin 3.5 g/dL (1.3-4.6) 11/20/24 05:11 Triglycerides 111 mg/dL (0-150) 11/19/24 19:34 Cholesterol 113 mg/dL (0-200) 11/19/24 19:34 LDL Cholesterol, Calc 58 mg/dL (50-129) 11/19/24 19:34 HDL Cholesterol 33 mg/dL (60-100) L 11/19/24 19:34 LDL/HDL Ratio 1.76 RATIO (0.00-3.22) 11/19/24 19:34 Cholesterol/HDL Ratio 3.42 mg/dL (1.0-5.00) 11/19/24 19:34 Procalcitonin 0.07 ng/mL (0-0.5) 11/19/24 19:34 Urine Color Yellow (Yellow) 11/19/24 23:00 Urine Appearance Clear (CLEAR) 11/19/24 23:00 Urine pH 6.5 (5-7) 11/19/24 23:00 Ur Specific [place] 1.047 (1.005-1.030) H 11/19/24 23:00 Urine Protein Trace (Negative) A 11/19/24 23:00 Urine Glucose (UA) Negative (Normal) 11/19/24 23:00 Urine Ketones Negative (Negative) 11/19/24 23:00 Urine Blood Negative (Negative) 11/19/24 23:00 Urine Nitrate Negative (Negative) 11/19/24 23:00 Urine Bilirubin Negative (Negative) 11/19/24 23:00 Urine Urobilinogen 1.0 mg/dL (Negative) 11/19/24 23:00 Ur Leukocyte Esterase Negative (Negative) 11/19/24 23:00 Urine RBC 0-2 /hpf (0-2) 11/19/24 23:00 Urine WBC 0-5 /hpf (0-5) 11/19/24 23:00 Ur Squamous Epith Cells 0-5 /hpf (0-5) 11/19/24 23:00 Amorphous Sediment Not Reportable 11/19/24 23:00 Urine Bacteria None seen /hpf (NONE) 11/19/24 23:00 Hyaline Casts 0-4 /lpf H 11/19/24 23:00 Vitals Last Vital Signs Temp 97.8 F 11/20/24 07:38 Pulse 54 L 11/20/24 12:00 Resp 20 H 11/20/24 12:00 BP 144/57 11/20/24 12:00 Pulse Ox 94 11/20/24 12:00 O2 Del Method Nasal Cannula 11/20/24 07:38 Discharge Plan Discharge Patient Disposition: Home Condition: Stable Prescriptions: Continued divalproex [Depakote ER] 500 mg tablet extended release 24 hr 1,000 mg PO DAILY Qty: 180 3RF nitroglycerin 0.4 mg tablet, sublingual 0.4 mg sublingual Q5M PRN (Reason: chest pain) Qty: 30 6RF Rx Instructions: do not exceed 3 doses per episode Aimovig Autoinjector 140 mg/mL auto-injector 140 mg SUBCUT ONCE Qty: 1 4RF gabapentin 400 mg capsule 400 mg PO TID insulin glargine 100 unit/mL (3 mL) insulin pen 41 unit SUBCUT DAILY potassium chloride 10 mEq Tablet Extended Release 10 meq PO DAILY tamsulosin 0.4 mg Capsule 0.4 mg PO DAILY pantoprazole 40 mg Tablet,Delayed Release (Dr/Ec) 40 mg PO DAILY docusate sodium 100 mg Tablet 100 mg PO BID memantine 5 mg Tablet 5 mg PO BID Jardiance 25 mg Tablet 25 mg PO DAILY albuterol sulfate 90 mcg/actuation Aerosol Powdr Breath Activated 1 inh INHALATION QID atorvastatin 40 mg tablet 40 mg PO QPM Qty: 90 0RF clopidogrel 75 mg tablet 75 mg PO DAILY Qty: 30 0RF aspirin 81 mg Tablet,Delayed Release (Dr/Ec) 81 mg PO DAILY Qty: 30 0RF meclizine 25 mg Tablet,Chewable 25 mg PO DAILY PRN (Reason: Motion Sickness) lisinopril 10 mg Tablet 10 mg PO DAILY Glucerna Liquid 1 ea PO DAILY cholecalciferol (vitamin D3) [Vitamin D3] 50 mcg (2,000 unit) Capsule 50 mcg PO DAILY melatonin 5 mg Tablet 5 mg PO BEDTIME Fish Oil 100-160-1,000 mg Capsule 1 cap PO DAILY Changed furosemide 20 mg tablet 60 mg PO QAM 120 Days Qty: 360 0RF Admittance Attendant OK for DC: Cardiology Discharge Order = DC NOW: Discharge Order (Routine); Ordered 11/20/24 Ordered By: Kirby Velasco Referrals: [facility] [Outside] Tisha Braun NP [Nurse Practitioner, Cardiology] - 1-3 days Gee Ochoa M.D [Physician, Cardiology] - 4-7 days Portia Lawrence MD [Primary Care Provider, Family Practice] Edwige Blount FNP [Nurse Practitioner, Cardiology] - 4-7 days Discharge Diet: Advance as tolerated, Cardiac and Low Salt Discharge Activity: Resume usual activity Patient Instructions: Opioid Safety, Patient Portal & Jeremiah Instructions Activity Restrictions/Additional Instructions: The patient was found to have low ejection fraction which had reduced in the previous echo. The patient was informed about his condition and was recommended to stay in the hospital for further diagnostic workup of reduced ejection fraction. Cardiology was verbally informed, however he preferred to go home. All the risk and benefits were discussed with the patient. The patient was counseled about the life-threatening condition such as cardiac arrhythmia and cardiac arrest and he preferred to go as early follow-up with the cardiology. The discussion was made in front of the assigned nurse and witnessed the discussion. Discharge Attestations Time Spent in Discharge Care*: greater than 30 min Specific Discharge Activities: educating patient, educating and/or supporting family/caregiver, discussing with pcp/other providers, discussing with catalytic case operator/social workers/dc planners, documenting/other paperwork and evaluating patient/reviewing data Status at Discharge: Cognitive status at discharge: cognitively intact, Behavioral status at discharge: cooperative, Functional status at discharge: independent ambulation, Overall status at discharge: patient is back to baseline Quality Metrics Clinical Quality Measures [ No reported AMI, CVA or VTE this stay] Coding Level of Care Code 88469 Diagnoses Acute hypoxic respiratory failure J96.01 Bilateral carotid artery stenosis I65.23 History of CVA (cerebrovascular accident) Z86.73 Dizziness R42 Acute on chronic congestive heart failure I50.9 Respiratory failure J96.90 PAD (peripheral artery disease) I73.9 Mild cognitive impairment with memory loss G31.84 S/P carotid endarterectomy Z98.890 COPD (chronic obstructive pulmonary disease) J44.9 Chronic headache R51
--- NOTE | 2024-11-20 15:03 | PC.NURSE ---
dr villaseñor informed pt and spouse that further testing is needed due to recent noted drop in cardiac ejection fraction.dr villaseñor requested that pt stay in hospital for this testing.....this is preferred...but pt insisted that he be discharged and have testing done on an outpt basis.
--- NOTE | 2024-11-20 15:07 | PC.SOCIAL ---
IMM UPDATED IMM dated and initialed, copy given to patient and copy placed in chart.
[2024-11-20 15:17] VITALS: BP 144/57; PULSE 55; RESP 22; O2SAT 95
--- NOTE | 2024-11-20 15:44 | PC.NURSE ---
discharge instructions given and explained to pt and spouse...emphasizing importance of making sure to attend dr appointments as scheduled.both verb understanding of instructions.discharged via w/c to exit at this time
--- NOTE | 2024-11-20 21:54 | USCV_ITS ---
Junior Andersen Age: 74 Gender: M : 1950 Exam Date: 11/20/2024 04:00 Ordering Phys: Ryland Webster MD Technologist: BAN [place] [facility] [place]: sob, patient is minimally responsive in CSU-112-1 BP: 152 / 69 HR: 54 Rhythm: Atrial fibrillation with bradycardia Technical Quality: technically difficult MEASUREMENTS (Male / Female) Normal Values 2D ECHO LV Diastolic Diameter PLAX 5.2 cm 4.2 - 5.9 / 3.9 - 5.3 cm IVS Diastolic Thickness 0.9 cm 0.6 - 1.0 / 0.6 - 0.9 cm IVS Systolic Thickness 1.3 cm LVPW Diastolic Thickness 1.3 cm 0.6 - 1.0 / 0.6 - 0.9 cm LVPW Systolic Thickness 1.6 cm LVOT Diameter 1.9 cm LV Ejection Fraction 2D Teich 30.2 % LV Ejection Fraction MOD 4C 23.4 % LV Ejection Fraction MOD 2C 35.4 % LV Ejection Fraction 2C AL 34.6 % LA Diameter 4.1 cm Aorta at Sinotubular Diameter 3.2 cm IVC Diameter 1.6 cm M-MODE LA Ao Ratio MM 1.3 AV Cusp Separation MM 2.0 cm DOPPLER AV Peak Velocity 86.0 cm/s LVOT Peak Velocity 55.0 cm/s AV Area Cont Eq vti 1.7 cm squared AV Area Cont Eq pk 1.9 cm squared MV Peak Velocity 130.0 cm/s MV Area PHT 3.5 cm squared Mitral E to A Ratio 0.0 TV Peak E Velocity 28.0 cm/s PV Peak Velocity 71.0 cm/s FINDINGS Left Ventricle Moderate left ventricular hypertrophy. Diffuse hypokinesia of the left ventricular ejection fraction of around 30%.Grade III/IV diastolic dysfunction (restrictive filling pattern), severely elevated filling pressures. Right Ventricle The right ventricle is normal in size and function. Right Atrium Mildly increased right atrial size. Left Atrium Mildly increased left atrial size. Mitral Valve Mild mitral annular calcification. Mild mitral valve regurgitation. Aortic Valve Thickened aortic valve. Trace to mild aortic valve regurgitation. Tricuspid Valve No gross abnormalities noted Pulmonic Valve Pulmonic valve not well visualized. Pericardium Normal pericardium without effusion. Aorta Normal ascending aorta dimension. IVC Normal inferior vena cava. CONCLUSIONS Moderate left ventricular hypertrophy. Diffuse hypokinesia of the left ventricular ejection fraction of around 30%. Grade III/IV diastolic dysfunction (restrictive filling pattern), severely elevated filling pressures. Mild biatrial enlargement. Mild mitral annular calcification. Mild mitral valve regurgitation. Thickened aortic valve. Trace to mild aortic valve regurgitation. There is no pericardial effusion. There are no intracardiac masses. Compared to the study from 03/06/2024, there is a significant drop in the LV ejection fraction from 45- 50% to 30% Dr Luisito Barajas MD [facility] (Electronically Signed) Final Date: 20 November 2024 11:05 S
--- NOTE | 2024-11-20 21:54 | USCV_ITS ---
Junior Andersen Age: 74 Gender: M : 1950 Exam Date: 11/20/2024 04:31 Ordering Phys: Ryland Webster MD Technologist: BAN Exam Location: [facility] – [place] Indication: cva; patient is minimally responsive in CSU-112-1 Risk Factors: unknown Previous Vascular Surgery: LEFT distal CCA through mid LEFT ICA stent 2 weeks ago Right Brachial BP: 159 / 62 Left Brachial BP: / Right Left Velocity (cm/s) Spectral Plaque Velocity (cm/s) Spectral Plaque Syst/Diast Broadening Syst/Diast Broadening 83.00/ 19.40 Min Hetro Prox CCA 101.20/ 25.80 Min Hetro 77.80/ 15.50 Min Hetro Mid CCA 102.50/ 24.50 Min Hetro 67.40/ 18.10 Mod Jones Distal CCA 86.60 / 14.40 Marked stent 99.60/ 21.60 Min Jones Prox ICA 95.00 / 20.30 Min stent 108.70/25.20 Min Hetro Mid ICA 84.00 / 14.20 Mod stent 121.40/25.20 Min Hetro Distal ICA 76.70 / 14.20 Min Hetro 118.50 None Hetro ECA 117.30 Min Hetro 1.80 ICA/CCA 1.10 Antegrade Vertebral Occluded 39.70/ 12.50 cm/s 0.00 / 0.00 cm/s Tri Subclavian Tri 68.00 86.90 FINDINGS Comparison:. /06/07 No significant elevation of systolic or diastolic velocities. Mild bilateral tubulence. Left ICA stent is patent. Diffuse bilateral scattered calcified plaque and intimal thickening throughout the common carotid arteries and extending through the bifurcation. Left vertebral artery is not visualized. CONCLUSIONS Bilateral ICA stenosis less than 50%. Diffuse carotid plaque. Non visualization left vertebral artery. Dr. Krista Blas DO (Electronically Signed) Final Date: 20 November 2024 09:15 S
== END 2024-11-20 15:46 | disposition home health service (06) | DRG 291 ==
LOC: ER 18:36 → CSU 19:31
PROVIDERS: Family Medicine; Admitting Provider Student in an Organized Health Care Education/Training Program; Emergency Provider Family Medicine; PCP Family Medicine; Visit Provider Student in an Organized Health Care Education/Training Program
DX: I11.0 Hypertensive heart disease with heart failure (principal); I50.23 Acute on chronic systolic (congestive) heart failure; J96.01 Acute respiratory failure with hypoxia; G40.209 Localization-related (focal) (partial) symptomatic epilepsy and epileptic syndromes with complex partial seizures, not intractable, without status epilepticus; I65.23 Occlusion and stenosis of bilateral carotid arteries; R42 Dizziness and giddiness; E11.51 Type 2 diabetes mellitus with diabetic peripheral angiopathy without gangrene; J44.9 Chronic obstructive pulmonary disease, unspecified; R51.9 Headache, unspecified; E78.5 Hyperlipidemia, unspecified; D64.9 Anemia, unspecified; N52.9 Male erectile dysfunction, unspecified; N40.1 Benign prostatic hyperplasia with lower urinary tract symptoms; R33.8 Other retention of urine; F17.210 Nicotine dependence, cigarettes, uncomplicated; I25.10 Atherosclerotic heart disease of native coronary artery without angina pectoris; G47.33 Obstructive sleep apnea (adult) (pediatric); I25.2 Old myocardial infarction; Z79.4 Long term (current) use of insulin; Z79.82 Long term (current) use of aspirin; Z79.02 Long term (current) use of antithrombotics/antiplatelets; Z95.820 Peripheral vascular angioplasty status with implants and grafts; Z86.73 Personal history of transient ischemic attack (TIA), and cerebral infarction without residual deficits; Z95.1 Presence of aortocoronary bypass graft; Z99.89 Dependence on other enabling machines and devices
CPT/HCPCS: 36415; 36416; 70450; 71045; 71275; 80053; 80061; 81001; 82728; 82962; 83540; 83605; 83880; 84145; 84484; 85025; 86140; 93005; 93306; 93880; 93970; 94640; 94664; 96372; 96374; 97116; 97161; 97165; 99285; J1200; J1650; J1815; J1938; J2270; J2470; J7613; J9999

== ENCOUNTER → 2024-11-24 11:46 | Outpatient (BNVA) | payer OTHER, MEDICARE, SELFPAY | PROVIDERS: PCP Family Medicine; Visit Provider Nurse Practitioner Family | DX: I11.0 Hypertensive heart disease with heart failure (principal); I50.20 Unspecified systolic (congestive) heart failure; I25.10 Atherosclerotic heart disease of native coronary artery without angina pectoris; I65.23 Occlusion and stenosis of bilateral carotid arteries; R51.9 Headache, unspecified; J44.9 Chronic obstructive pulmonary disease, unspecified; E11.9 Type 2 diabetes mellitus without complications; Z79.4 Long term (current) use of insulin; G47.33 Obstructive sleep apnea (adult) (pediatric); Z99.89 Dependence on other enabling machines and devices; I73.9 Peripheral vascular disease, unspecified; Z72.0 Tobacco use; Z98.890 Other specified postprocedural states; Z79.02 Long term (current) use of antithrombotics/antiplatelets; Z79.82 Long term (current) use of aspirin; Z95.5 Presence of coronary angioplasty implant and graft; Z95.1 Presence of aortocoronary bypass graft; I25.2 Old myocardial infarction | CPT/HCPCS: 36415; 80053; 83880; 85025; 99214 ==

== ENCOUNTER → 2024-12-02 13:25 | Outpatient (BNVA) | payer OTHER, SELFPAY | PROVIDERS: PCP Family Medicine; Visit Provider Nurse Practitioner Family | DX: I11.0 Hypertensive heart disease with heart failure (principal); I50.20 Unspecified systolic (congestive) heart failure; I25.10 Atherosclerotic heart disease of native coronary artery without angina pectoris; I65.23 Occlusion and stenosis of bilateral carotid arteries; E11.9 Type 2 diabetes mellitus without complications; Z79.4 Long term (current) use of insulin; J44.9 Chronic obstructive pulmonary disease, unspecified; R51.9 Headache, unspecified; G47.33 Obstructive sleep apnea (adult) (pediatric); Z99.89 Dependence on other enabling machines and devices; Z79.02 Long term (current) use of antithrombotics/antiplatelets; Z79.82 Long term (current) use of aspirin; Z72.0 Tobacco use; Z95.1 Presence of aortocoronary bypass graft; Z98.890 Other specified postprocedural states; I25.2 Old myocardial infarction; I10 Essential (primary) hypertension | CPT/HCPCS: 99214 ==

== ENCOUNTER 2024-12-09 12:59 | Outpatient (CLI) | payer OTHER, SELFPAY ==
[2024-12-09 13:57] LABS: Hematocrit 40.4 % (37-53); Hemoglobin 12.00 g/dL (11.27-16.99); Mean Corpuscular HGB Conc 29.7 g/dL (30-55); Mean Corpuscular Hemoglobin 26.5 pg (27-33); Mean Corpuscular Volume 89.4 fl (82-101); Nucleated Red Blood Cells % 0 %; Platelet Count 184 10^3/cmm (157-399); Red Blood Count 4.52 10^6/uL (3.85-5.65); White Blood Count 7.42 10^3/uL (3.29-11.43)
[2024-12-09 14:29] LABS: Anion Gap 11.4 (5-19); Blood Urea Nitrogen 30 mg/dL (8-23); Calcium 9.0 mg/dL (8.5-10.5); Carbon Dioxide 33 mmol/L (22-29); Chloride 100 mmol/L (98-107); Glucose 259 mg/dL (65-115); NT Pro B Type Natriuretic Pept 861 pg/mL (0-125); Osmolality Calculated 305 mOsm/kg (285-295); Potassium 4.4 mmol/L (3.5-5.1); Sodium 140 mmol/L (136-145)
== END 2024-12-09 13:00 | disposition home or self-care (01) ==
LOC: LAB 13:00
PROVIDERS: PCP Family Medicine; Visit Provider Nurse Practitioner Family
DX: I10 Essential (primary) hypertension (principal); I25.10 Atherosclerotic heart disease of native coronary artery without angina pectoris
CPT/HCPCS: 36415; 80048; 83880; 85025

== ENCOUNTER 2024-12-17 06:01 | Outpatient (CLI) | payer OTHER, SELFPAY ==
[2024-12-17] VITALS (20 sets, daily range): BP systolic 107–154; BP diastolic 39–81; PULSE 39–52; RESP 7–22; TEMP 36.5–36.7; O2SAT 91–99; BMI 32.5
--- NOTE | 2024-12-17 06:00 | XACV_ITS ---
Ht: 180 cm Wt: 106 kg BSA: 2.33 m2 Gender: Male : 1950 Any Known Allergies: Other Exam Priority: Routine Indication(s): - Decreased LV systolic function Procedure(s): Procedure Description: Diagnostic procedure Procedure Description: PLATT Graft Catheterization Procedure Description: Coronary Angiography Diagnostic Cath Status: Elective Diagnostic Findings * PLATT to LAD is patent. Left main artery is patent. Left circumflex artery is patent. Ramus artery is patent with patent prior stent. RCA not injected as is known occluded. * Coronary angiography shows right dominance. Conclusions 1. PLATT to LAD is patent. Left main artery is patent. Left circumflex artery is patent. Ramus artery is patent with patent prior stent. RCA not injected as is known occluded. 2. Patient has prior CABG. Recommendations * Aggressive risk factor modification. * Outpatient cardiology follow up in 2 weeks. Interventional RX Recommendation: medical therapy and/or counseling Diagnostic RX Recommendation: medical therapy and/or counseling Pressures Phase:Rest AO : 0 / -3 ( -1 ) @ 10:36:00 AM 166 / 59 ( 99 ) @ 11:10:00 AM Clinical Evaluation EBL: 5mL-10mL Procedural Details Procedure Consent Obtained. Admit Source: Out Patient. Pre-Procedure Time Out. Identified patient by full name and date of as verbalized by the patient/guarantor. Does the consent match the physician's order: Yes. Accurate & Complete Informed Consent: Yes. Inpatient/Outpatient History & Physical on Chart: Yes. If H&P is completed, is and addenduem needed: No; If yes, is the addendum complete: N/A. Visualize and Verify Site with Patient/Guarantor: N/A. Relevant Radiology Images available: N/A. The risks, benefits, and alternatives of sedation and/or procedure were discussed by physician. The patient agrees to continue. Procedure started. [facility] Clinical Fraility Score: 5: Mildly Frail. Campaign Management Senior Manager Indications: LV Dysfunction. Chest Pain Symptom Assessment: Atypical Angina. Cardiovascular Instability: No. Correct patient, site and procedure confirmed by cath team. Current diagnosis: LV Dysfunction. PERRLA. Strong, equal hand mine laborer bilaterally. Lungs clear x 5 lobes. IV Site on Arrival: 20 gauge in the left anticubital. IV Fluids: 0.9% NaCl at KVO. 400 mL infused prior to label press operator. Pre Procedural Pulses: bilateral posterior tibial was Doppled. Pre Procedural Pulses: bilateral dorsalis pedis was Doppled. Pre Procedural Pulses: bilateral radial was 3+. Oxygen started at 3liters/min via nasal canula. bilateral groins was prepped with chloroprep then draped in the usual sterile fashion. Physician notified. Baseline sample Acquired. HR: 48 BPM. Physician arrived. Physician scrubbed in. Family updated by MD prior to the start of the procedure. Immediate Pre-Procedure Time Out. Correct Patient: Yes; Correct Procedure: Yes; Correct Site: Yes; Correct Patient Position: Yes; Correct Supplies: Yes; Dried Flammable Prep: Yes; Blood Products Available: N/A;. Lidocaine 1% infiltrated to the right groin. Arterial access obtained. A 5 [place] JL4 catheter in over wire. Multiple views taken of left coronary artery. [place] RCA is known occluded. Catheter removed over the exchange wire. A 5 [place] JR4 catheter in over wire. SVG's known occluded beside PLATT. PLATT to LAD visualized. Physician review of films. Catheter removed over the wire. Contrast type used: Visipaque 320 mgI/mL, 100 mL bottle. [id number]. Physician review of films. A Right femoral angiogram was performed to determine safe placement of closure device. A Mynx was successful obtaining hemostatsis at the Right Femoral artery insertion site. Mynx placed without complications. No signs or symptoms of hematoma noted. Sterile dressing applied per usual sterile fashion. lot # [id number] EXP 10/07/26. Post Procedure: Pulses reassessed and unchanged. PERRLA. Strong, equal hand mine laborer bilaterally. No VTE prophylaxis required. Medication's Wasted: Versed = 1 mg ,Heparin = 1000 units. Total IV fluids: 50 mL. Fluoro: 4:04. Post-op diagnosis: Patent PLATT and ramus and circumflex arteries. Complications: None. Estimated blood loss: 5mL-10mL. Responsiveness - Normal response to verbal stimuli; alert and oriented, PERRLA. Airway - Unaffected, no intervention required; spontaneous ventilation. Circulation: W/N/L, pulses unchanged. Nausea/Vomiting: No. Procedure completed. Patient transferred by bed to CPRU. Current Diagnosis : Chest Pain. Vital chart was stopped. Access Site Site: Right Femoral artery Sheath Size: 6 Fr Hemostasis Method: Mynx Hemostasis Success: Successful Procedure Medications Start: 9:36 AM Stop: 9:36 AM Medication: Benadryl Amount: 25 mg Route: I.V. Start: 9:44 AM Stop: 9:44 AM Medication: Fentanyl Amount: 50 mcg Route: I.V. Start: 9:46 AM Stop: 9:46 AM Medication: Versed Amount: 1 mg Route: I.V. Start: 9:58 AM Stop: 9:58 AM Medication: Fentanyl Amount: 25 mcg Route: I.V. Start: 10:13 AM Stop: 10:13 AM Medication: Fentanyl Amount: 25 mcg Route: I.V. I, the attending physician, have reviewed and verified all procedure medications. Yes, all medications given per verbal order History/Risk Factors Hypertension: Yes Dyslipidemia: Yes Peripheral Arterial Disease (PAD): Yes Myocardial Infarction (CO): Yes Obesity: Yes Renal Disease: No Tobacco Use: Current/Recent(w/in 1 year) Prior Interventions PCI: Yes CABG: Yes Valve Surgery: No Date of PCI: 03/07/2024 Report Signatures Finalized by Gee Ochoa MD on 12/30/2024 08:59 PM
[2024-12-17 08:23] LABS: Anion Gap 12.9 (5-19); Blood Urea Nitrogen 32 mg/dL (8-23); Calcium 8.4 mg/dL (8.5-10.5); Carbon Dioxide 28 mmol/L (22-29); Chloride 106 mmol/L (98-107); Creatinine Clr Calc Pharmacy 45.8868; Glucose 194 mg/dL (65-115); Osmolality Calculated 308 mOsm/kg (285-295); Potassium 3.9 mmol/L (3.5-5.1); Sodium 143 mmol/L (136-145)
--- NOTE | 2024-12-17 09:40 | W.PM.OPSUD ---
Surgery/Procedure H&P Update DATE OF PROCEDURE: December 17, 2024 DATE H&P PERFORMED: 12/02/24 H&P UPDATE INFORMATION: I have reviewed H&P completed within last 30 days, I have examined patient prior to procedure and No changes to prior documentation PREOP DIAGNOSIS: LV dysfunction/ Coronary artery disease PRIMARY INDICATION FOR PROCEDURE: LV dysfunction/ Coronary artery disease PLANNED PROCEDURE: Operation Date: 12/17/24 10:00 Proposed Procedures p Cardiac Catheterization(Left) - Gee Ochoa M.D Possible percutaneous coronary intervention PATIENT REASSESSED PRIOR TO SEDATION, WITH NO CHANGE NOTED: Yes PHYSICAL EXAM: alert, oriented x 3, clear to auscultation bilaterally and regular rate & rhythm AIRWAY EVAL/ANESTHESIA PLAN: normal airway, ASA III, Local Anesthesia, Risks, benefits & alternatives of sedation and/or procedure discussed and Patient agrees to continue as planned ADDITIONAL INFORMATION: Moderate sedation
--- NOTE | 2024-12-17 10:21 | PM.PROC ---
Procedure Note: Date of procedure: 12/17/24 Pre-procedure diagnosis: LV dysfunction Post-procedure diagnosis: other Procedure: Patent PLATT to LAD. Patent left circumflex artery and ramus artery. RCA is known occluded. Not injected. Aggressive guideline directed heart failure therapy Outpatient cardiology follow up in 2 weeks Performing Provider: Gee Ochoa Estimated blood loss (mL): 10 Complications: None Condition: stable Disposition: same day Coding Level of Care Code Acute Code for g Lidia
--- NOTE | 2024-12-17 14:00 | PC.NURSE ---
Care resumed from Db Olson RN.
--- NOTE | 2024-12-17 14:37 | PC.NURSE ---
Report called to robert London RN in OPS. Patient then transferred via wheelchair with his spouse and all belongings.
--- NOTE | 2024-12-17 16:27 | SUR.PHASEII ---
Received report from Jorge and took over care of patient.
== END 2024-12-17 06:02 | disposition home or self-care (01) ==
PROVIDERS: PCP Family Medicine; Visit Provider Internal Medicine
DX: I25.118 Atherosclerotic heart disease of native coronary artery with other forms of angina pectoris (principal); I11.0 Hypertensive heart disease with heart failure; I50.20 Unspecified systolic (congestive) heart failure; I25.2 Old myocardial infarction; G47.33 Obstructive sleep apnea (adult) (pediatric); Z99.89 Dependence on other enabling machines and devices; J44.9 Chronic obstructive pulmonary disease, unspecified; E11.9 Type 2 diabetes mellitus without complications; G40.109 Localization-related (focal) (partial) symptomatic epilepsy and epileptic syndromes with simple partial seizures, not intractable, without status epilepticus; F17.200 Nicotine dependence, unspecified, uncomplicated; Z79.82 Long term (current) use of aspirin; Z79.4 Long term (current) use of insulin; K21.9 Gastro-esophageal reflux disease without esophagitis; Z95.5 Presence of coronary angioplasty implant and graft; Z95.1 Presence of aortocoronary bypass graft
CPT/HCPCS: 36415; 80048; 93455; 96360; 96361; 99152; 99153; C1760; C1769; C1887; C1894; G0269; J1200; J1644; J2250; J3010; J7030; J9999; Q9967

== ENCOUNTER 2024-12-25 06:50 | Outpatient (CLI) | payer OTHER, SELFPAY ==
--- NOTE | 2024-12-25 07:15 | USCV_ITS ---
Junior Andersen Age: 74 Gender: M : 1950 Exam Date: 12/25/2024 07:05 Ordering Phys: Tisha Braun NP Technologist: CHING Exam Location: [facility] [place] Indication: Ischemic Cardiomyopathy BP: 128 / 72 HR: Rhythm: Sinus Technical Quality: Adequate MEASUREMENTS (Male / Female) Normal Values 2D ECHO LV Diastolic Diameter PLAX 6.2 cm 4.2 - 5.9 / 3.9 - 5.3 cm IVS Diastolic Thickness 1.1 cm 0.6 - 1.0 / 0.6 - 0.9 cm IVS Systolic Thickness 2.0 cm LVPW Diastolic Thickness 1.8 cm 0.6 - 1.0 / 0.6 - 0.9 cm LVPW Systolic Thickness 1.8 cm LVOT Diameter 2.0 cm LV Ejection Fraction 2D Teich 40.2 % LV Ejection Fraction MOD 4C 39.5 % LV Ejection Fraction MOD 2C 39.5 % LV Ejection Fraction 2C AL 41.1 % LA Diameter 4.4 cm RA Systolic Volume 4C AL 51.0 ml RA Systolic Volume 4C MOD 49.2 ml LA Sys Volume AL 43.1 cm cubed LA Sys Volume Index AL 19.6 cm cubed/m squared Aorta at Sinotubular Diameter 3.0 cm M-MODE LA Ao Ratio MM 0.9 AV Cusp Separation MM 1.9 cm FINDINGS Left Ventricle Normal left ventricular cavity size. Normal LV wall thickness. Moderately decreased left ventricular systolic function with akinesis of basal to mid inferior and inferoseptal wall segments, EF 40%. Right Ventricle Right Atrium Left Atrium Mitral Valve Aortic Valve Tricuspid Valve Pulmonic Valve Pericardium Aorta IVC CONCLUSIONS Normal left ventricular cavity size. Normal LV wall thickness. Moderately decreased left ventricular systolic function with akinesis of basal to mid inferior and inferoseptal wall segments, EF 40%. This study was ordered as a limited echo. Marty Pillai MD, FACC (Electronically Signed) Final Date: 27 December 2024 18:39 S
== END 2024-12-25 06:51 | disposition home or self-care (01) ==
LOC: RAD 06:51
PROVIDERS: PCP Family Medicine; Visit Provider Nurse Practitioner Family
DX: I25.5 Ischemic cardiomyopathy (principal)
CPT/HCPCS: 93308

== ENCOUNTER → 2024-12-30 15:22 | Outpatient (BNVA) | payer OTHER, SELFPAY | PROVIDERS: PCP Family Medicine; Visit Provider Internal Medicine | DX: I25.10 Atherosclerotic heart disease of native coronary artery without angina pectoris (principal); I11.0 Hypertensive heart disease with heart failure; I50.23 Acute on chronic systolic (congestive) heart failure; F17.210 Nicotine dependence, cigarettes, uncomplicated; Z95.1 Presence of aortocoronary bypass graft; Z95.5 Presence of coronary angioplasty implant and graft | CPT/HCPCS: 99214 ==

== ENCOUNTER 2025-01-12 17:47 | Emergency (ER) | payer OTHER, SELFPAY ==
--- NOTE | 2025-01-12 17:46 | ECG_ITS ---
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 Measurements Intervals Gentry Rate: 56 P: 104 TN: 138 QRS: 26 QRSD: 123 T: 60 QT: 457 QTc: 444 Interpretive Statements SINUS BRADYCARDIA MODERATE INTRAVENTRICULAR CONDUCTION DELAY [105+ ms QRS DURATION, 80+ ms Q/S IN V1/V2, NO Q AND 60+ ms R IN I/aVL/V5/V6] NONSPECIFIC ST & T-WAVE ABNORMALITY Compared to ECG 11/20/2024 05:47:26 Sinus rhythm no longer present Sinus arrhythmia no longer present Possible ischemia no longer present T-wave abnormality still present Electronically Signed On 01-14-2025 08:38:15 CDT by Gee Ochoa M.D. [email or web address]
[2025-01-12 17:48] VITALS: BP 99/47; PULSE 57; RESP 20; TEMP 36.8; O2SAT 93; BMI 30.4
--- NOTE | 2025-01-12 17:52 | CTR_ITS ---
PROCEDURE INFORMATION: Exam: CT Head Without Contrast Exam date and time: 01/12/2025 6:28 PM Age: 74 years old Clinical indication: Altered mental status/memory loss; Confusion or disorientation; Additional info: Encephalopathy, altered mental status TECHNIQUE: Imaging protocol: Computed tomography of the head without contrast. Radiation optimization: All CT scans at this facility use at least one of these dose optimization techniques: automated exposure control; mA and/or kV adjustment per patient size (includes targeted exams where dose is matched to clinical indication); or iterative reconstruction. COMPARISON: CT head wo con* [id number] 11/19/2024 6:15 PM RADIATION DOSE METRICS: Total DLP (mGy-cm): 1139.38 FINDINGS: Brain: No intracranial hemorrhage. There is global parenchymal volume loss. Periventricular white matter hypoattenuation is nonspecific but most likely due to small vessel disease. No evidence of acute territorial infarct or cerebral edema. No mass effect or midline shift. Cerebral ventricles: Prominent ventricles likely secondary to volume loss. Paranasal sinuses: Mild mucosal thickening of the paranasal sinuses. No air-fluid levels. Mastoid air cells: The mastoid air cells are clear. Bones: The calvarium is intact. Soft tissues: Soft tissues are unremarkable as visualized. CT/CT head wo con* [id number] IMPRESSION: 1. No acute intracranial findings. 2. Chronic microvascular ischemic changes.
--- NOTE | 2025-01-12 17:52 | XRR_ITS ---
PROCEDURE INFORMATION: Exam: XR Chest Exam date and time: 01/12/2025 6:06 PM Age: 74 years old Clinical indication: Pain; Chest pressure; Prior surgery; Surgery date: 6+ months; Surgery type: Open heart; Additional info: Chest pain TECHNIQUE: Imaging protocol: Radiologic exam of the chest. Views: 1 view. COMPARISON: CT angio chest PE protcl [id number] 11/19/2024 8:48 PM FINDINGS: Lungs: There is mild prominence of the pulmonary interstitial and vascular markings. Pleural spaces: Suggestion of trace bilateral layering effusions. No pneumothorax. Heart/Mediastinum: Enlarged cardiac silhouette. No mediastinal widening. Vasculature: Proximal left common carotid vascular stent. Lower neck skin jason. Bones/joints: Status post median sternotomy. The spine demonstrates mild degenerative changes at multiple levels. XR/XR chest 1V portable [id number] IMPRESSION: Cardiomegaly and suggestion of mild interstitial edema. Possible trace bilateral effusions.
--- OUTSIDE RECORDS SUMMARY | 2025-01-12 17:56 | XMS_ITS | Patient Health Record ---
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 Name Role Phone JOSE OWENS Unavailable [phone] Allergies Allergen (clinical drug ingredient) Drug/Non Drug Allergy documented on EMR Reaction Allergy Type Onset Date Status Information temporarily unavailable Tape allergy Allergy Active Reason For Referral [...] Problem Status W/U Status Risk Notes Problem Information temporarily unavailable ED (erectile dysfunction) (N52.9) Active confirmed Problem Information temporarily unavailable History of gross hematuria (Z87.448) Active confirmed Problem Information temporarily unavailable Family history of bladder cancer (Z80.52) Active confirmed Problem Information temporarily unavailable Urinary retention (R33.9) Active confirmed Problem Information temporarily unavailable BPH loc w urin obs/LUTS (N40.1) Active confirmed Plan Of Treatment Pending Test Test Name Order Date CT Abd & Pelvis [place] & [place] [id number] 03/14/2023 Bladder Scan 03/14/2023 Insurance Providers Payer Name Payer Address Payer Phone Subscriber Number Group Number Insured Name Patient Relationship to Insured Coverage Start Date Coverage End Date [employer] [address] ASHLEY NEGRO [id number] Junior Andersen Self - patient is the insured Medical (General) History Medical History History ICD Code anxiety arthropathy CAD cervicalgia hx chest pain COPD chronic pain syndrome chronic pulmonary edema compression fx thoracic hypertension heart failure hematuria hx of hyperlipidemia ED seizuresTIAs diabetes Surgical History Surgery Date(Month/Year) carotid endarterectomy CABG 2004 heart stents 11/2022 appendectomy
--- NOTE | 2025-01-12 18:01 | W.ED.AMS ---
HPI - Altered Mental Status General: Chief Complaint: Altered Mental Status Stated Complaint: Chest Pain Time Seen by Provider: 01/12/25 17:47 History of Present Illness: 74-year-old male with a history of peripheral vascular disease, coronary artery disease, CHF, carotid artery stenosis, obstructive sleep apnea with nighttime CPAP, COPD, hypertension, diabetes who presents emergency room by ambulance from home with chest pain and confusion. Related Data Home Medications ?Medication ?Instructions ?Recorded ?Confirmed gabapentin 400 mg capsule 400 mg PO TID 12/13/22 12/30/24 albuterol sulfate 90 mcg/actuation 1 inh inhalation QID 03/06/24 12/30/24 breath activated powder inhaler docusate sodium 100 mg tablet 100 mg PO BID 03/06/24 12/30/24 empagliflozin 25 mg tablet 25 mg PO DAILY 03/06/24 12/30/24 (Jardiance) insulin glargine 100 unit/mL (3 41 unit SUBCUT DAILY 03/06/24 12/30/24 mL) subcutaneous pen memantine 5 mg tablet 5 mg PO BID 03/06/24 12/30/24 pantoprazole 40 mg tablet,delayed 40 mg PO DAILY 03/06/24 12/30/24 release tamsulosin 0.4 mg capsule 0.4 mg PO DAILY 03/06/24 12/30/24 cholecalciferol (vitamin D3) 50 50 mcg PO DAILY 11/20/24 12/30/24 mcg (2,000 unit) capsule (Vitamin D3) lisinopril 10 mg tablet 10 mg PO DAILY 11/20/24 12/30/24 meclizine 25 mg chewable tablet 25 mg PO DAILY PRN Motion Sickness 11/20/24 12/30/24 melatonin 5 mg tablet 5 mg PO BEDTIME 11/20/24 12/30/24 nut.tx.gluc.intol,lac-free,soy 1 ea PO DAILY 11/20/24 12/30/24 (Glucerna oral liquid) omega 1-xjr-mvm-fish oil 100 1 cap PO DAILY 11/20/24 12/30/24 mg-160 mg-1,000 mg capsule (Fish Oil) Previous Rx's ?Medication ?Instructions ?Recorded nitroglycerin 0.4 mg sublingual 0.4 mg sublingual Q5M PRN chest 02/25/23 tablet pain #30 tabs divalproex 500 mg tablet,extended 1,000 mg (2 x 500 mg) PO DAILY 02/05/24 release 24 hr (Depakote ER) #180 tabs aspirin 81 mg tablet,delayed 81 mg PO DAILY #30 tabs 03/08/24 release atorvastatin 40 mg tablet 40 mg PO QPM #90 tabs 03/08/24 clopidogrel 75 mg tablet 75 mg PO DAILY #30 tabs 03/08/24 erenumab-aooe 140 mg/mL 140 mg SUBCUT ONCE #1 mL 04/22/24 subcutaneous auto-injector (Aimovig Autoinjector) furosemide 20 mg tablet 20 mg PO BID #180 tabs 12/30/24 potassium chloride 10 mEq 10 meq PO BID #180 tabs 12/30/24 tablet,extended release Allergies Allergy/AdvReac Type Severity Reaction Status Date / Time adhesive tape Allergy ALGY-Rash Verified 12/30/24 15:35 Review of Systems Narrative: Constitutional symptoms: Negative except as documented in HPI. Skin symptoms: Negative except as documented in HPI. Eye symptoms: Negative except as documented in HPI. ENMT symptoms: Negative except as documented in HPI. Respiratory symptoms: Negative except as documented in HPI. Cardiovascular symptoms: Negative except as documented in HPI. Gastrointestinal symptoms: Negative except as documented in HPI. Genitourinary symptoms: Negative except as documented in HPI. Musculoskeletal symptoms: Negative except as documented in HPI. Neurologic symptoms: Negative except as documented in HPI. Psychiatric symptoms: Negative except as documented in HPI. Endocrine symptoms: Negative except as documented in HPI. PFS ED PFSH: Medical History (Updated 01/12/25 @ 19:31 by Maureen Zaragoza MD) PAD (peripheral artery disease) Unstable angina Unstable angina Tobacco abuse NSTEMI (non-ST elevated myocardial infarction) Systolic CHF with reduced left ventricular function, NYHA class 2 Bilateral carotid artery stenosis Erectile dysfunction Urinary retention Cutaneous wart Current smoker JENAE on CPAP Acute cystitis without hematuria Phimosis BPH NOS w ur obs/LUTS COPD (chronic obstructive pulmonary disease) Hypertension Diabetes Complex partial epilepsy with generalization Myocardial infarct Chronic headache CAD (coronary artery disease) Balanitis Surgical History History of cardiac catheterization H/O heart artery stent S/P carotid endarterectomy H/O circumcision History of laparotomy History of appendectomy History of coronary artery bypass graft Family History Mother , at age 103 No problems noted. Father , at age 89 Congestive heart failure (CHF) Other CAD (coronary artery disease) Hypertension Mesothelioma Social History Smoking and tobacco/nicotine status: current every day tobacco/nicotine user cigarettes Packs smoked per day: 1.5 Years cigarettes smoked: 52 [ Other cigarette details: was 2ppd] Alcohol intake: never Substance/Drug Use: never Marital status: service: Yes Current occupational status: retired and disabled Do you think of yourself as: Straight/Heterosexual Physical Exam Narrative: General: Somnolent but arousable Skin: Warm, dry Head: Normocephalic, atraumatic. Neck: Supple, trachea midline. Eye: Extraocular movements are intact. Ears, nose, mouth and throat: Dry oral mucosa. Cardiovascular: Regular rate and rhythm, Normal peripheral perfusion. Respiratory: Lungs are clear to auscultation, respirations are non-labored, breath sounds are equal, Symmetrical chest wall expansion. Gastrointestinal: Soft, Nontender, Non distended Musculoskeletal: no deformity. Neurological: Somnolent but oriented when awakened, No obvious focal neurological deficit observed. He is able to move all his extremities and has no facial droop and no slurred speech but sometimes has difficulty answering questions and is quite somnolent. Psychiatric: unable to assess. Course Vital Signs: Vital signs: Vital Signs Temperature 98.3 F 01/12/25 17:48 Pulse Rate 57 L 01/12/25 18:26 Respiratory Rate 20 H 01/12/25 17:48 Blood Pressure 106/39 01/12/25 18:26 Pulse Oximetry 93 01/12/25 18:26 Oxygen Delivery Me thod Room Air 01/12/25 18:26 MDM - Altered Mental Status Medical Decision Making Medical decision making: Differential diagnosis including but not limited to and based on the above HPI, review of systems and physical exam: In this patient with altered mental status: Stroke. Hypoglycemia. Metabolic encephalopathy. Infections such as pneumonia, urinary tract infection, Covid-19, Influenza. Electrolyte abnormalities such as hypernatremia. Renal failure / uremia. Hepatic encephalopathy. Hypoxemia. Hypercapnic respiratory failure. Psychosis. Drug or alcohol intoxication. Medication overdose. Orders placed to evaluate differential diagnosis based on the above differential, HPI and physical exam EKG: Time 1746. Rate 56. Sinus bradycardia, moderate ST changes that are unchanged from EKG done on November 20., no ectopy, normal IL & QRS intervals, This was reviewed and interpreted by myself the ER physician at 1750. CT head: No acute intracranial process. No intracranial hemorrhage, no evidence of infarct. No evidence of acute fracture. This was reviewed and interpreted by myself the emergency room physician. I also reviewed the radiology report. Chest x-ray: Sternotomy wires. Unchanged cardiomegaly. No acute process. No infiltrate. No pneumothorax. This was reviewed and interpreted by myself the emergency room physician. I also reviewed the radiology report. Lab Review: Laboratory results were reviewed and interpreted by myself the emergency room physician. No leukocytosis. No anemia. BUN and creatinine are 25 and 1.9. This is at or just above his recent baseline. Troponin is at his baseline at 20. I reviewed the patient's medical record. 74-year-old male with a history of peripheral vascular disease, coronary artery disease, CHF, carotid artery stenosis, obstructive sleep apnea with nighttime CPAP, COPD, hypertension, diabetes. Echo done earlier this month showed moderately decreased LV function with an EF of 40. Patient had elective cath and had patent stents at that time. Reexamination: I discussed findings with the patient and we cannot find anything significantly wrong with him right now. He still acts strange but his from the little we could get from her says that he does this sometimes. Currently he is chest pain free. He says he wants to go home Assessment and plan: Weakness ? 500 mL saline bolus. No acute findings on extensive workup - Discharged home - Discussed plan with patient. Answered any questions. - Evaluation and treatment of this problem were appropriate in the emergency setting. Lab Data 01/12/25 17:57 01/12/25 17:57 Radiology Impressions Chest X-Ray 01/12/25 17:52 IMPRESSION: Cardiomegaly and suggestion of mild interstitial edema. Possible trace bilateral effusions. Head CT 01/12/25 17:52 IMPRESSION: 1. No acute intracranial findings. 2. Chronic microvascular ischemic changes. Laboratory Results WBC 6.57 10^3/uL (3.29-11.43) 01/12/25 17:57 RBC 4.37 10^6/uL (3.85-5.65) 01/12/25 17:57 Hgb 11.70 g/dL (11.27-16.99) 01/12/25 17:57 Hct 38.5 % (37-53) 01/12/25 17:57 MCV 88.1 fl (82-101) 01/12/25 17:57 MCH 26.8 pg (27-33) L 01/12/25 17:57 MCHC 30.4 g/dL (30-55) 01/12/25 17:57 RDW 14.9 % (12.1-15.1) 01/12/25 17:57 Plt Count 172 10^3/cmm (157-399) 01/12/25 17:57 MPV 10.2 fL (7.4-10.4) 01/12/25 17:57 Neut % (Auto) 56.8 % 01/12/25 17:57 Lymph % (Auto) 26.5 % 01/12/25 17:57 [place] % (Auto) 11.9 % 01/12/25 17:57 Eos % (Auto) 3.7 % 01/12/25 17:57 Baso % (Auto) 0.6 % 01/12/25 17:57 Neut # (Auto) 3.74 10^3/uL (1.8-7.7) 01/12/25 17:57 Lymph # (Auto) 1.7 10^3/uL (0.8-4.8) 01/12/25 17:57 [place] # (Auto) 0.8 10^3/uL (0.2-0.9) 01/12/25 17:57 Eos # (Auto) 0.2 10^3/uL (0.0-0.8) 01/12/25 17:57 Baso # (Auto) 0.0 10^3/uL (0.0-0.1) 01/12/25 17:57 Nucleated RBC % (auto) 0 % 01/12/25 17:57 Nucleated RBCs # 0.0 /100WBC 01/12/25 17:57 Sodium 142 mmol/L (136-145) 01/12/25 17:57 Potassium 4.1 mmol/L (3.5-5.1) 01/12/25 17:57 Chloride 103 mmol/L (98-107) 01/12/25 17:57 Carbon Dioxide 26 mmol/L (22-29) 01/12/25 17:57 Anion Gap 17.1 (5-19) 01/12/25 17:57 BUN 25 mg/dL (8-23) H 01/12/25 17:57 Creatinine 1.9 mg/dL (0.7-1.2) H 01/12/25 17:57 GFR Calculation Not Reportable 01/12/25 17:57 Glucose 84 mg/dL (65-115) 01/12/25 17:57 Calculated Osmolality 298 mOsm/kg (285-295) H 01/12/25 17:57 Lactic Acid 1.2 mmol/L (0.5-2.2) 01/12/25 17:57 Calcium 8.4 mg/dL (8.5-10.5) L 01/12/25 17:57 Total Bilirubin 0.3 mg/dL (0.15-1.2) 01/12/25 17:57 AST 11 U/L (0-40) 01/12/25 17:57 ALT 6 U/L (0-41) 01/12/25 17:57 Alkaline Phosphatase 81 U/L (40-130) 01/12/25 17:57 Troponin T Baseline 22 ng/L (0-15) H 01/12/25 17:57 NT-Pro-B Natriuret Pep 795 pg/mL (0-125) H 01/12/25 17:57 Total Protein 7.2 g/dL (6.6-8.7) 01/12/25 17:57 Albumin 3.8 g/dL (3.5-5.2) 01/12/25 17:57 Globulin 3.4 g/dL (1.3-4.6) 01/12/25 17:57 Urine Color Yellow (Yellow) 01/12/25 18:18 Urine Appearance Clear (CLEAR) 01/12/25 18:18 Urine pH 5.5 (5-7) 01/12/25 18:18 Ur Specific [place] 1.021 (1.005-1.030) 01/12/25 18:18 Urine Protein Negative (Negative) 01/12/25 18:18 Urine Glucose (UA) 3+ (Normal) H 01/12/25 18:18 Urine Ketones Trace (Negative) 01/12/25 18:18 Urine Blood Negative (Negative) 01/12/25 18:18 Urine Nitrate Negative (Negative) 01/12/25 18:18 Urine Bilirubin Negative (Negative) 01/12/25 18:18 Urine Urobilinogen 1.0 mg/dL (Negative) 01/12/25 18:18 Ur Leukocyte Esterase Negative (Negative) 01/12/25 18:18 Urine RBC None /hpf (0-2) 01/12/25 18:18 Urine WBC 0-4 /hpf (0-5) H 01/12/25 18:18 Ur Squamous Epith Cells 0-4 /hpf (0-5) H 01/12/25 18:18 Amorphous Sediment Not Reportable 01/12/25 18:18 Urine Bacteria Trace /hpf (NONE) 01/12/25 18:18 All radiology interpretation(s) finalized by discharge Discharge Plan Discharge Patient Disposition: Home Clinical Impression: Weakness Condition: Stable Prescriptions: No Action divalproex [Depakote ER] 500 mg tablet extended release 24 hr 1,000 mg PO DAILY Qty: 180 3RF nitroglycerin 0.4 mg tablet, sublingual 0.4 mg sublingual Q5M PRN (Reason: chest pain) Qty: 30 6RF Rx Instructions: do not exceed 3 doses per episode Aimovig Autoinjector 140 mg/mL auto-injector 140 mg SUBCUT ONCE Qty: 1 4RF furosemide 20 mg tablet 20 mg PO BID Qty: 180 3RF potassium chloride 10 mEq tablet extended release 10 meq PO BID Qty: 180 3RF gabapentin 400 mg capsule 400 mg PO TID insulin glargine 100 unit/mL (3 mL) insulin pen 41 unit SUBCUT DAILY tamsulosin 0.4 mg Capsule 0.4 mg PO DAILY pantoprazole 40 mg Tablet,Delayed Release (Dr/Ec) 40 mg PO DAILY docusate sodium 100 mg Tablet 100 mg PO BID memantine 5 mg Tablet 5 mg PO BID Jardiance 25 mg Tablet 25 mg PO DAILY albuterol sulfate 90 mcg/actuation Aerosol Powdr Breath Activated 1 inh INHALATION QID atorvastatin 40 mg tablet 40 mg PO QPM Qty: 90 0RF clopidogrel 75 mg tablet 75 mg PO DAILY Qty: 30 0RF aspirin 81 mg Tablet,Delayed Release (Dr/Ec) 81 mg PO DAILY Qty: 30 0RF meclizine 25 mg Tablet,Chewable 25 mg PO DAILY PRN (Reason: Motion Sickness) lisinopril 10 mg Tablet 10 mg PO DAILY Glucerna Liquid 1 ea PO DAILY cholecalciferol (vitamin D3) [Vitamin D3] 50 mcg (2,000 unit) Capsule 50 mcg PO DAILY melatonin 5 mg Tablet 5 mg PO BEDTIME Fish Oil 100-160-1,000 mg Capsule 1 cap PO DAILY Discharge Orders: Discharge ED (Routine); Ordered 01/12/25 Ordered By: Maureen Zaragoza Referrals: Portia Lawrence MD [Primary Care Provider, Family Practice] Discharge Diet: Usual diet Discharge Activity: Increase activity as tolerated Patient Instructions: Altered Mental Status (ED), Opioid Safety, Pain Management, Patient Portal & Jeremiah Instructions Activity Restrictions/Additional Instructions: Thank you for choosing [facility] [place] for your healthcare needs today. You have been screened and evaluated and felt safe for discharge. Health conditions do change or evolve sometimes and as such it is important that you follow up with your Primary Doctor to be re checked, 3-5 days is a general good time frame for follow up. You are always welcome to return to the ED for re assessment if your symptoms are worsening or you have new concerns Print Language: Chinese Coding Level of Care Code ED Chemical Processing Laborer for Selin Murillo
[2025-01-12 18:18] LABS: Hematocrit 38.5 % (37-53); Hemoglobin 11.70 g/dL (11.27-16.99); Mean Corpuscular HGB Conc 30.4 g/dL (30-55); Mean Corpuscular Hemoglobin 26.8 pg (27-33); Mean Corpuscular Volume 88.1 fl (82-101); Nucleated Red Blood Cells % 0 %; Platelet Count 172 10^3/cmm (157-399); Red Blood Count 4.37 10^6/uL (3.85-5.65); White Blood Count 6.57 10^3/uL (3.29-11.43)
[2025-01-12 18:26] VITALS: BP 106/39; PULSE 57; O2SAT 93
[2025-01-12 18:49] LABS: Troponin(5th) Baseline 22 ng/L (0-15)
[2025-01-12 18:51] LABS: Glucose Urine UA 3+ (Normal); Nitrate Urine Negative (Negative); Specific Gravity, Urine 1.021 (1.005-1.030)
[2025-01-12 18:53] LABS: Lactic Sepsis W/Reflex 1.2 mmol/L (0.5-2.2)
[2025-01-12 19:00] VITALS: BP 110/63; PULSE 51; RESP 18; O2SAT 98
[2025-01-12 19:01] LABS: UA Manual Slide Review YES
[2025-01-12 19:08] LABS: Alanine Aminotransferase 6 U/L (0-41); Albumin Level 3.8 g/dL (3.5-5.2); Alkaline Phosphatase 81 U/L (40-130); Anion Gap 17.1 (5-19); Aspartate Amino Transferase 11 U/L (0-40); Blood Urea Nitrogen 25 mg/dL (8-23); Calcium 8.4 mg/dL (8.5-10.5); Carbon Dioxide 26 mmol/L (22-29); Chloride 103 mmol/L (98-107); Creatinine Clr Calc Pharmacy 42.1188; Globulin 3.4 g/dL (1.3-4.6); Glucose 84 mg/dL (65-115); NT Pro B Type Natriuretic Pept 795 pg/mL (0-125); Osmolality Calculated 298 mOsm/kg (285-295); Potassium 4.1 mmol/L (3.5-5.1); Sodium 142 mmol/L (136-145); Total Protein 7.2 g/dL (6.6-8.7)
[2025-01-12 20:00] VITALS: BP 133/49; PULSE 49; RESP 18; O2SAT 100
--- NOTE | 2025-01-12 20:07 | PC.NURSE ---
spoke with pt and daughter and they had no further questions at this time
--- NOTE | 2025-01-12 21:04 | PC.NURSE ---
removed catheter. no complications.
--- NOTE | 2025-01-12 21:04 | PC.NURSE ---
pt ambulation pt unable to get up out of bed or follow commands. intermittently alert to ask questions.
[2025-01-12 21:40] VITALS: BP 143/55; PULSE 46; RESP 17; O2SAT 99
== END 2025-01-12 21:45 | disposition home or self-care (01) ==
PROVIDERS: Emergency Provider Emergency Medicine; PCP Family Medicine
DX: R53.1 Weakness (principal); Z79.4 Long term (current) use of insulin; Z79.02 Long term (current) use of antithrombotics/antiplatelets; Z79.82 Long term (current) use of aspirin; I25.10 Atherosclerotic heart disease of native coronary artery without angina pectoris; J44.9 Chronic obstructive pulmonary disease, unspecified; E11.9 Type 2 diabetes mellitus without complications; I11.0 Hypertensive heart disease with heart failure; I50.20 Unspecified systolic (congestive) heart failure; F17.210 Nicotine dependence, cigarettes, uncomplicated
CPT/HCPCS: 36415; 51702; 70450; 71045; 80053; 81001; 83605; 83880; 84484; 85025; 87040; 93005; 99285; J7030

== ENCOUNTER → 2025-02-23 12:48 | Outpatient (BNVA) | payer OTHER, SELFPAY | PROVIDERS: PCP Family Medicine; Visit Provider Specialist | DX: G40.909 Epilepsy, unspecified, not intractable, without status epilepticus (principal); G43.711 Chronic migraine without aura, intractable, with status migrainosus; I65.23 Occlusion and stenosis of bilateral carotid arteries; R03.0 Elevated blood-pressure reading, without diagnosis of hypertension | CPT/HCPCS: 36415; 82233; 82234; 82542; 83520; 99214 ==

== ENCOUNTER → 2025-03-01 12:39 | Outpatient (BNVA) | payer OTHER, SELFPAY | PROVIDERS: PCP Family Medicine; Visit Provider Nurse Practitioner Family | DX: I25.10 Atherosclerotic heart disease of native coronary artery without angina pectoris (principal); I65.23 Occlusion and stenosis of bilateral carotid arteries; J44.9 Chronic obstructive pulmonary disease, unspecified; R51.9 Headache, unspecified; I11.0 Hypertensive heart disease with heart failure; I50.20 Unspecified systolic (congestive) heart failure; G47.33 Obstructive sleep apnea (adult) (pediatric); Z99.89 Dependence on other enabling machines and devices; Z98.890 Other specified postprocedural states; Z72.0 Tobacco use; Z95.5 Presence of coronary angioplasty implant and graft; Z95.1 Presence of aortocoronary bypass graft; I25.2 Old myocardial infarction; R00.2 Palpitations | CPT/HCPCS: 99214 ==

== ENCOUNTER → 2025-03-01 13:32 | Outpatient (BNVA) | payer OTHER, SELFPAY | PROVIDERS: PCP Family Medicine; Visit Provider Internal Medicine Cardiovascular Disease | DX: R00.2 Palpitations (principal); R00.1 Bradycardia, unspecified | CPT/HCPCS: 93270 ==